=== PATIENT | female | born 1940 | race Caucasian/White ===

== ENCOUNTER 2023-05-07 13:12 | Inpatient (IN) ==
--- NOTE | 2023-05-07 13:45 | Emergency Department Note ---
ED Provider Note History of Present Illness Chief Complaint: Sore Throat Time Seen by Provider: 05/07/23 13:44 History obtained from the patient, the patient's daughter, Anita, is well as Tatiana, supervisor stage carpentry at [facility] This is an 82-year-old female with a history of hypertension, chronic pain, diabetes, vascular dementia, arthritis, CVA, on Eliquis, resident of [facility], on hospice for pain control secondary to chronic foot pain, who presents to the emergency department via EMS who were contacted by the patient's daughter who spoke with the patient today who was not feeling well. Patient is complaining of a sore throat and nausea. Patient describes a mild cough but does not feel short of breath. Patient denies any fevers but does admit to body aches. She has not had any vomiting. She denies any chest pain. When the daughter spoke to the patient today on the phone, she was concerned stating that she was acting like she was ill and contacted EMS to take her to the emergency department. Per nursing staff, the patient has been eating and drinking. Patient was treated for a left second toe infection with doxycycline within the past few weeks. She is not routinely on oxygen. She was worked up for her sore throat in the past. Patient tested negative for COVID-19 yesterday. Patient arrives via EMS on 2 L O2. Past Med/Surg History Medical History (Updated 05/07/23 @ 16:25 by SANDY Ruff) Chronic pain Anticoagulated History of CVA (cerebrovascular accident) Vascular dementia Hypertension Diabetes Social History Smoking Status: Former smoker Preferred Language: Scottish Feels Safe at Home: Yes Physical Exam Vital Signs Vital Signs - 24 hr 05/07/23 13:23 05/07/23 13:23 05/07/23 13:53 Temperature 100.0 F H 100.0 F H Temperature Source Oral Oral Pulse Rate 100 H 98 H Pulse Rate [Apical] 96 H Pulse Rate from SpO2 Sensor Pulse Rhythm [Apical] Pulse Strength [Apical] Respiratory Rate 18 17 Respiratory Effort / Characteristics Non-Labored Spontaneous Non-Labored Spontaneous Respiratory Depth Normal Normal Respiratory Pattern Blood Pressure 132/71 Blood Pressure [Right Arm] 132/71 Blood Pressure Mean 91 Blood Pressure Mean [Right Arm] 91 Blood Pressure Position Lying Blood Pressure Position [Right Arm] Lying Pulse Oximetry 86 L 96 Oxygen Delivery Method Room Air Nasal Cannula Oxygen Flow Rate 2 Sepsis Recent Fever Within 48 Hours No Sepsis New/Unexplained Change in Mental Status N/A Sepsis Action Taken by Nursing No Action Required Oxygen Flow Rate - Titration Pulse Oximetry Post Tiitration 05/07/23 14:00 05/07/23 14:00 05/07/23 14:30 Temperature Temperature Source Pulse Rate 94 H 93 H Pulse Rate [Apical] Pulse Rate from SpO2 Sensor 94 H 93 H Pulse Rhythm [Apical] Pulse Strength [Apical] Respiratory Rate 24 22 Respiratory Effort / Characteristics Respiratory Depth Respiratory Pattern Blood Pressure 131/68 Blood Pressure [Right Arm] Blood Pressure Mean 88 Blood Pressure Mean [Right Arm] Blood Pressure Position Blood Pressure Position [Right Arm] Pulse Oximetry 95 97 Oxygen Delivery Method Oxygen Flow Rate Sepsis Recent Fever Within 48 Hours Sepsis New/Unexplained Change in Mental Status Sepsis Action Taken by Nursing Oxygen Flow Rate - Titration Pulse Oximetry Post Tiitration 05/07/23 14:41 05/07/23 14:41 05/07/23 15:00 Temperature Temperature Source Pulse Rate 94 H Pulse Rate [Apical] Pulse Rate from SpO2 Sensor 94 H Pulse Rhythm [Apical] Pulse Strength [Apical] Respiratory Rate 24 Respiratory Effort / Characteristics Respiratory Depth Respiratory Pattern Blood Pressure 105/80 138/70 Blood Pressure [Right Arm] Blood Pressure Mean 94 102 Blood Pressure Mean [Right Arm] Blood Pressure Position Blood Pressure Position [Right Arm] Pulse Oximetry 96 Oxygen Delivery Method Oxygen Flow Rate Sepsis Recent Fever Within 48 Hours Sepsis New/Unexplained Change in Mental Status Sepsis Action Taken by Nursing Oxygen Flow Rate - Titration Pulse Oximetry Post Tiitration 05/07/23 15:00 05/07/23 15:30 05/07/23 15:30 Temperature Temperature Source Pulse Rate 83 84 Pulse Rate [Apical] Pulse Rate from SpO2 Sensor 83 84 Pulse Rhythm [Apical] Pulse Strength [Apical] Respiratory Rate 23 24 Respiratory Effort / Characteristics Respiratory Depth Respiratory Pattern Blood Pressure 134/68 Blood Pressure [Right Arm] Blood Pressure Mean 99 Blood Pressure Mean [Right Arm] Blood Pressure Position Blood Pressure Position [Right Arm] Pulse Oximetry 96 95 Oxygen Delivery Method Nasal Cannula Nasal Cannula Oxygen Flow Rate 2 2 Sepsis Recent Fever Within 48 Hours Sepsis New/Unexplained Change in Mental Status Sepsis Action Taken by Nursing Oxygen Flow Rate - Titration Pulse Oximetry Post Tiitration 05/07/23 15:42 05/07/23 16:07 05/07/23 16:30 Temperature Temperature Source Pulse Rate 81 Pulse Rate [Apical] 76 Pulse Rate from SpO2 Sensor 81 Pulse Rhythm [Apical] Regular Pulse Strength [Apical] Normal Respiratory Rate 19 21 Respiratory Effort / Characteristics Non-Labored Spontaneous Respiratory Depth Normal Respiratory Pattern Regular Blood Pressure Blood Pressure [Right Arm] 128/65 Blood Pressure Mean Blood Pressure Mean [Right Arm] 86 Blood Pressure Position Blood Pressure Position [Right Arm] Semi-fowlers Pulse Oximetry 88 L 99 98 Oxygen Delivery Method Nasal Cannula Nasal Cannula Nasal Cannula Oxygen Flow Rate 0 2 2 Sepsis Recent Fever Within 48 Hours Sepsis New/Unexplained Change in Mental Status Sepsis Action Taken by Nursing Oxygen Flow Rate - Titration 2 Pulse Oximetry Post Tiitration 93 05/07/23 16:30 05/07/23 17:00 05/07/23 17:00 Temperature Temperature Source Pulse Rate 81 Pulse Rate [Apical] Pulse Rate from SpO2 Sensor 75 Pulse Rhythm [Apical] Pulse Strength [Apical] Respiratory Rate 19 Respiratory Effort / Characteristics Respiratory Depth Respiratory Pattern Blood Pressure 122/63 111/57 L Blood Pressure [Right Arm] Blood Pressure Mean 79 77 Blood Pressure Mean [Right Arm] Blood Pressure Position Blood Pressure Position [Right Arm] Pulse Oximetry 98 Oxygen Delivery Method Nasal Cannula Oxygen Flow Rate 2 Sepsis Recent Fever Within 48 Hours Sepsis New/Unexplained Change in Mental Status Sepsis Action Taken by Nursing Oxygen Flow Rate - Titration Pulse Oximetry Post Tiitration CONSTITUTIONAL: Well developed, well nourished, ill-appearing, nontoxic. Answers questions and communicates with examiner. Follows commands. HEAD: Normocephalic, atraumatic. EYES: conjunctivae normal, extraocular muscles intact. ENMT: External ears normal. Nose with normal external appearance, no congestion. Oral mucous membranes dry. Oropharynx is erythematous with no exudates or tonsillar enlargement.. NECK: No rigidity LYMPHATIC: No cervical adenopathy RESPIRATORY: Breathing unlabored and symmetric. Lungs clear to auscultation bilaterally. No wheeze, rales, or rhonchi. CARDIOVASCULAR: Regular rate and rhythm. No murmurs, rubs, or gallops. ABDOMEN: Normal bowel sounds. Soft, no focal tenderness. No peritonitis. MUSCULOSKELETAL: Bilateral lower extremities without edema. Left second toe with a wound with mild surrounding erythema. All toes are hyperflexed SKIN: [place], warm, dry. NEUROLOGIC: Awake, alert, oriented to person. Believes she is at [facility]. Does not know the year. No focal deficits. PSYCHIATRIC: Minimally confused but answers questions appropriately. Course Administered Medications Discontinued Medications Acetaminophen (Acetaminophen 325 Mg Tab) 650 mg PO NOW STA Stop: 05/07/23 14:22 Last Admin: 05/07/23 14:55 Dose: 650 mg Documented By: AKILAH Sodium Chloride (Nss) 1,000 mls @ 999 mls/hr IV .Q1H1M ONE Stop: 05/07/23 15:06 Last Infusion: 05/07/23 15:41 Dose: Infused Documented By: Admin: 05/07/23 14:51 Dose: 999 mls/hr Documented By: AKILAH Piperacillin Sod/Tazobactam Sod (Zosyn) 4.5 gm in 100 mls @ 200 mls/hr IV NOW STA Stop: 05/07/23 16:14 Last Infusion: 05/07/23 16:37 Dose: Infused Documented By: Admin: 05/07/23 15:55 Dose: 200 mls/hr Documented By: ROD Daptomycin 325 mg/ Syringe 6.5 mls @ 3.25 mls/min IV NOW ONE; Protocol Stop: 05/07/23 16:01 Last Admin: 05/07/23 15:55 Dose: 3.25 mls/min Documented By: ROD Ondansetron HCl (Ondansetron Inj 2 Mg/Ml 2 Ml Vial) 4 mg IV NOW STA Stop: 05/07/23 15:27 Last Admin: 05/07/23 15:38 Dose: 4 mg Documented By: LISETTE Medical Decision Making Differential Diagnosis Viral upper respiratory infection, pneumonia, bronchitis, electrolyte imbalance, sepsis, UTI, CHF, effusion, among other pathology Laboratory Data 05/07/23 14:30 05/07/23 14:30 Lab Results 05/07/23 05/07/23 Range/Units 13:56 14:30 WBC 9.86 (4.8-10.8) K/ul RBC 4.04 L (4.20-5.40) M/uL Hgb 11.0 L (12.0-16.0) g/dl Hct 35.3 L (37.0-47.0) % MCV 87.4 (80.0-100.0) fL MCH 27.2 (25.0-34.0) pg MCHC 31.2 L (32.0-36.0) g/dL RDW Std Deviation 46.5 H (36.4-46.3) fL RDW Coeff of Atilio 14.5 (11.5-14.5) % Plt Count 137 (130-400) K/uL MPV 11.2 (9.4-12.4) fL Immature Gran % (Auto) 0.3 % Neut % (Auto) 63.3 % Lymph % (Auto) 28.9 % [place] % (Auto) 6.3 % Eos % (Auto) 0.6 % Baso % (Auto) 0.6 % Neut # (Auto) 6.24 (1.40-6.50) K/uL Lymph # (Auto) 2.85 (1.20-3.40) K/uL [place] # (Auto) 0.62 H (0.11-0.59) K/uL Eos # (Auto) 0.06 (0.00-0.50) K/uL Baso # (Auto) 0.06 (0.00-0.20) K/uL Immature Gran # (Auto) 0.03 (0.01-0.20) K/uL Sodium 136 (136-145) mmol/L Potassium 4.3 (3.5-5.1) mmol/L Chloride 102 (98-107) mmol/L Carbon Dioxide 28 (21-32) mmol/L Anion Gap 6 (3-11) BUN 21 (6-23) mg/dl Creatinine 0.68 (0.6-1.2) mg/dl Est Cr Clr Drug Dosing 57.0 ml/min Est GFR ( Amer) 95.8 ml/min Est GFR (Non-Af Amer) 82.6 ml/min BUN/Creatinine Ratio 30.9 H (10-20) Glucose 107 H (70-99(Fasting)) mg/dl Calcium 9.1 (8.6-10.3) mg/dl Total Bilirubin 0.4 (0.2-1.0) mg/dl AST 19 (13-39) U/L ALT 16 (7-52) U/L Alkaline Phosphatase 140 H (34-104) U/L Total Protein 6.5 (6.0-8.3) gm/dl Albumin 3.7 (3.4-5.0) gm/dl Globulin 2.8 (2.5-4.0) gm/dl Albumin/Globulin Ratio 1.3 (0.9-2) Procalcitonin 0.06 (0-0.5) ng/ml Adenovirus (PCR) Not Detected (NotDetected) B. pertussis DNA (PCR) Not Detected (NotDetected) B.parapertussis DNA PCR Not Detected (NotDetected) C. pneumoniae DNA (PCR) Not Detected (NotDetected) Coronavirus OC43 (PCR) Not Detected (NotDetected) Coronavirus HKU1 (PCR) Not Detected (NotDetected) Coronavirus 229E (PCR) Not Detected (NotDetected) SARS-CoV-2 (PCR) DETECTED A* (NotDetected) Coronavirus NL63 (PCR) Not Detected (NotDetected) Human Metapneumovir PCR Not Detected (NotDetected) Influenza Type A (PCR) Not Detected (NotDetected) Influenza Type B (PCR) Not Detected (NotDetected) M. pneumoniae (PCR) Not Detected (NotDetected) Parainfluenza 1 (PCR) Not Detected (NotDetected) Parainfluenza 2 (PCR) Not Detected (NotDetected) Parainfluenza 3 (PCR) Not Detected (NotDetected) Parainfluenza 4 (PCR) Not Detected (NotDetected) RSV (PCR) Not Detected (NotDetected) Entero/Rhino (PCR) Not Detected (NotDetected) Imaging Data Radiologist's Impression: Chest X-Ray 05/07/23 14:06 XR chest 1V portable HISTORY: cough, low grade fever COMPARISON: None. FINDINGS: Slightly rotated study. There are low lung volumes. No pneumothorax. No pleural effusions. The heart is normal in size. Mild interstitial thickening. This is likely chronic. No focal lung consolidations to suggest a pneumonia. No evidence for pulmonary edema. No acute fractures identified. IMPRESSION: Mild diffuse interstitial thickening. This is likely chronic. Otherwise, no acute process within the chest. ACT 112: Negative or not required by law. Electronically signed by: Darrel Lui M.D. 05/07/2023 2:45 PM Foot X-Ray 05/07/23 14:32 XR foot LT min 3V routine CLINICAL HISTORY: 2nd toe infection?. Left second toe pain. COMPARISON STUDY: None. FINDINGS: The bones are osteopenic. No acute fracture or dislocation within the left foot. Hallux valgus deformity noted overlying the second toe. This results in difficult evaluation of the second toe. Flexion deformities within the toes also results in suboptimal evaluation. There is evidence for a small focus of cortical erosion at the head of the second toe proximal phalanx. This is consistent with a site of osteomyelitis. Vascular calcifications are noted. No radiopaque foreign bodies. IMPRESSION: Small focus of cortical erosion at the head of the left second toe consistent with osteomyelitis. ACT 112: Negative or not required by law. Electronically signed by: Darrel Lui M.D. 05/07/2023 3:26 PM MDM Narrative This is an 82-year-old female who is brought to the emergency department via EMS. Her daughter called the ambulance today because she was complaining of a sore throat, had a cough, and daughter was concerned she sounded ill. Patient hospice for chronic pain. See above for further details. When I initially evaluated the patient, her heart rate was in the high 90s. She was not oriented to place or year, history of dementia. She seems slightly ill but nontoxic. She answered questions and followed commands. She was placed on 2 L O2 by EMS. I removed this but the patient dropped into the high 80s/low 90s so she was kept on 2 L. She is not in any respiratory distress. Does appear to be dry. Oropharynx is erythematous. She also has a wound on her left second toe with some erythema. Patient is nearly febrile at 100.0. Differential diagnosis considered above. IV was inserted and labs were obtained. Blood cultures obtained. IV fluids and Tylenol administered. Aside from 2 L nasal cannula, patient not requiring any additional respiratory intervention. An order was placed for continuous cardiac monitoring at time of evaluation demonstrates a sinus rhythm with a rate in the 90s. Case was reviewed with ED attending Dr. Campo who evaluated patient at bedside. I called and spoke with the patient's daughter, Anita who is the power of assistant county attorney. She wanted the patient to be worked up and if necessary, admitted, was not concerned about being discharged from hospice. I also spoke with Tatiana, supervisor stage carpentry at [facility]. Patient takes Eliquis, a statin, lisinopril, tramadol, gabapentin, Celexa. She felt the sore throat was chronic and patient had been worked up for this in the past. Patient was treated with doxycycline for an infection on her left second toe within the past few weeks. Tested negative for COVID-19 yesterday. Was not overly concerned about her state of health and that she had been eating and drinking to her knowledge. Patient is POSITIVE for COVID-19. Chest x-ray demonstrates some chronic changes, nothing acute. Her left toe x-ray is positive for osteomyelitis. Antibiotic recommendations were discussed with ED clinical pharmacist. Given her history of diabetes, daptomycin and Zosyn were administered. Patient will be admitted for ongoing management of both COVID-19 with hypoxia and osteomyelitis. I called and updated Mis as well as the patient's daughter. Both are in agreement with this plan. Case was discussed with Darrel Ng PA-C with [facility] hospitalist group who agrees to admit the patient. Impression COVID-19, Acute osteomyelitis of toe Discharge Plan Visit Data Chief Complaint: Sore Throat ED Provider: Sumit Campo ED Midlevel Provider: Phi Sheriff Discharge Problem: COVID-19, Acute osteomyelitis of toe Patient Disposition: Admitted As Inpatient Forms Stand Alone Forms: My [facility] Referrals Referrals: Charlee Abebe [Primary Care Provider] - Discharge Problem: Acute osteomyelitis of toe Qualifiers: Laterality: left Qualified Code(s): M86.172 - Other acute osteomyelitis, left ankle and foot
[2023-05-07] MEDS ORDERED: SODIUM CHLORIDE 0.9% 1,000 ML IV ONE (14:06)
[2023-05-07] MEDS ORDERED: ACETAMINOPHEN 325 MG TAB PO STA (14:21)
--- NOTE | 2023-05-07 14:46 | XRay Report ---
XR chest 1V portable HISTORY: cough, low grade fever COMPARISON: None. FINDINGS: Slightly rotated study. There are low lung volumes. No pneumothorax. No pleural effusions. The heart is normal in size. Mild interstitial thickening. This is likely chronic. No focal lung cons olidations to suggest a pneumonia. No evidence for pulmonary edema. No acute fractures identified. IMPRESSION: Mild diffuse interstitial thickening. This is likely chronic. Otherwise, no acute process within the chest. ACT 112: Negative or not required by law. Electronically signed by: Darrel Lui M.D. 05/07/2023 2:45 PM
[2023-05-07 15:14] LABS: Adenovirus PCR Not Detected (NotDetected); Bordetella parapertussis PCR Not Detected (NotDetected); Bordetella pertussis PCR Not Detected (NotDetected); Chlamydia pneumoniae PCR Not Detected (NotDetected); Coronavirus 229E PCR Not Detected (NotDetected); Coronavirus HKU1 PCR Not Detected (NotDetected); Coronavirus NL63 PCR Not Detected (NotDetected); Coronavirus OC43PCR Not Detected (NotDetected); Human Metapneumovirus PCR Not Detected (NotDetected); Influenza A PCR Not Detected (NotDetected); Influenza B PCR Not Detected (NotDetected); Mycoplasma pneumoniae PCR Not Detected (NotDetected); Parainfluenza Virus 1 PCR Not Detected (NotDetected); Parainfluenza Virus 2 PCR Not Detected (NotDetected); Parainfluenza Virus 3 PCR Not Detected (NotDetected); Parainfluenza Virus 4 PCR Not Detected (NotDetected); Respiratory Syncytial VirusPCR Not Detected (NotDetected); Rhinovirus/Enterovirus PCR Not Detected (NotDetected)
[2023-05-07 15:15] LABS: Basophils # (auto) 0.06 K/uL (0.00-0.20); Basophils % (auto) 0.6 %; Eosinophils # (auto) 0.06 K/uL (0.00-0.50); Eosinophils % (auto) 0.6 %; Hematocrit (blood only) 35.3 % (37.0-47.0); Immature Granulocytes # (auto) 0.03 K/uL (0.01-0.20); Immature Granulocytes % (auto) 0.3 %; Lymphocytes # (auto) 2.85 K/uL (1.20-3.40); Lymphocytes % (auto) 28.9 %; Mean Corpuscular Hemoglobin 27.2 pg (25.0-34.0); Mean Corpuscular Hgb Conc 31.2 g/dL (32.0-36.0); Mean Corpuscular Volume 87.4 fL (80.0-100.0); Mean Platelet Volume 11.2 fL (9.4-12.4); Monocytes # (auto) 0.62 K/uL (0.11-0.59); Monocytes % (auto) 6.3 %; Neutrophils # (auto) 6.24 K/uL (1.40-6.50); Neutrophils % (auto) 63.3 %; Platelet Count 137 K/uL (130-400); RDW Coefficient of Variation 14.5 % (11.5-14.5); RDW Standard Deviation 46.5 fL (36.4-46.3); Red Blood Count 4.04 M/uL (4.20-5.40); White Blood Count 9.86 K/ul (4.8-10.8)
[2023-05-07 15:22] LABS: Coronavirus CoV-2 (COVID19)PCR DETECTED (NotDetected)
[2023-05-07 15:25] LABS: Albumin Globulin Ratio 1.3 (0.9-2); Albumin Level 3.7 gm/dl (3.4-5.0); BUN Creatinine Ratio 30.9 (10-20); Bilirubin,Total 0.4 mg/dl (0.2-1.0); Calcium 9.1 mg/dl (8.6-10.3); Est GFR (African American) 95.8 ml/min; Est GFR (Non-African American) 82.6 ml/min; Globulin 2.8 gm/dl (2.5-4.0); Potassium 4.3 mmol/L (3.5-5.1); Total Protein 6.5 gm/dl (6.0-8.3)
[2023-05-07] MEDS ORDERED: ONDANSETRON INJ 2 MG/ML 2 ML VIAL IV STA (15:26)
--- NOTE | 2023-05-07 15:28 | XRay Report ---
XR foot LT min 3V routine CLINICAL HISTORY: 2nd toe infection?. Left second toe pain. COMPARISON STUDY: None. FINDINGS: The bones are osteopenic. No acute fracture or dislocation within the left foot. Hallux ronal ave deformity noted overlying the second toe. This results in difficult evaluation of the second toe. Flexion deformities within the toes also results in suboptimal evaluation. There is evidence for a s mall focus of cortical erosion at the head of the second toe proximal phalanx. This is consistent wit h a site of osteomyelitis. Vascular calcifications are noted. No radiopaque foreign bodies. IMPRESSION: Small focus of cortical erosion at the head of the left second toe consistent with osteo myelitis. ACT 112: Negative or not required by law. Electronically signed by: Darrel Lui M.D. 05/07/2023 3:26 PM
[2023-05-07] MEDS ORDERED: PIPERACILLIN/TAZOBACTAM 4.5 GM/100 ML BAG IV STA (15:45)
--- NOTE | 2023-05-07 15:49 | Emergency Department Note ---
ED Visit Note Patient was evaluated and treated by the MARQUES. I was asked to see the patient as well. The patient is resting in no distress on my arrival to the room. Patient is COVID-positive I have reviewed all of her lab work as well as her x-rays there is a possibility that the patient has an osteomyelitis of a toe. Patient's pulse ox is 88% when she is taken off oxygen. Patient was placed back on 2 L. Patient is in no current distress on my examination at 1549 Disposition and treatment plan per the MARQUES, I agree with the plan. I reviewed the patient's medical records. I reviewed the patient's lab work showing the patient to be COVID positive .
[2023-05-07] MEDS ORDERED: DAPTOmycin 325 MG in SYRINGE 0 ML IV ONE (16:00)
--- NOTE | 2023-05-07 16:52 | History & Physical Report ---
Date of Service May 07, 2023 Assessment & Plan (1) Acute osteomyelitis of toe: Plan: Patient presented for [facility] after her daughter called EMS requesting she come in Patient with hx of vascular dementia; unreliable historian; she was previously on hospice care, however, daughter/POA requested she be admitted even if this meant being disenrolled from hospice care Patient notes worsening cough, fatigue, and sore throat x 2 days; ongoing, severe pain in toes bilaterally Left foot x-ray revealed a small focus of cortical erosion at the head of the left second toe consistent with osteomyelitis Blood culture ordered, pending Daptomycin and Zosyn given in the ED Continue daptomycin 6mg/kg IV q24h ?PCN allergy (unable to assess due to patient's underlying dementia), however tolerated Zosyn in the ED We will switch to cefepime 2000 mg IV q8h for now Daily wound care Apply mupirocin 2% to site twice daily Podiatry consulted Continue tramadol Continue gabapentin Acetaminophen 650 mg p.o. q4h as needed for additional pain/fever control A.m. CBC, BMP, CRP, A1c (2) COVID-19: Plan: + COVID on arrival Unclear when symptoms began; patient says "a couple days", however sore throat has been ongoing But timeline is uncertain, will start on remdesivir while inpatient; kidney function okay Decadron 6 mg IV daily Continue guaifenesin as needed for cough Supplemental oxygen as needed to maintain SpO2 >95% Isolation precautions in place (3) Constipation: Plan: MiraLAX twice daily (4) Chronic pain: Plan: Gabapentin (as above) (5) Hypertension: Plan: Continue lisinopril (6) Major depressive disorder: Plan: Continue citalopram (7) Type 2 diabetes mellitus with diabetic polyneuropathy: Plan: Not on any diabetic medications [facility] had patient listed as having a regular diet; ?Diet controlled No A1c on record Continue lisinopril T2DM diet BSG ACHS Follow a.m. A1c (8) Insomnia: Plan: Continue melatonin HS (9) Hyperlipidemia: Plan: Hold atorvastatin in the setting of daptomycin use (10) GERD (gastroesophageal reflux disease): Plan: Continue omeprazole or pantoprazole equivalent (11) History of deep venous thrombosis (DVT) of distal vein of right lower extremity: Plan: On Eliquis (12) Vascular dementia: Plan Disposition: Admit to [facility] telemetry DNR/DNI T2DM diet VTE PPx: On Eliquis History of Present Illness Chief Complaint: Osteomyelitis Primary Care Provider: [facility] Ruthann is an 82-year-old female with PMH of T2DM with diabetic polyneuropathy, depression, vascular dementia, GERD, DVT, insomnia, RA, and hyperlipidemia. She presented via EMS from her [facility] at the request of her daughter who reported that she was not feeling well. Per EMS, patient required 2L as she was 90% SpO2 on RA; she also noted sore throat, upset stomach, and pain in her toes. Of note, this patient was previously on hospice secondary to chronic foot pain. However, spoke on the phone with the patient's daughter/POA (Anita) who is okay with her being admitted even if it meant being disenrolled from hospice care, and that this would not require reenrolling upon discharge. At time of admission, patient reports that her sore throat, and upset stomach has been going on for "a couple days", likely 2. She tested positive for COVID on arrival. She endorses ongoing toe pain which she rates 8/10. No radiation of the foot. She reports that she used to smoke tobacco cigarettes, but quit a long time ago. Patient's vitals are stable at time of admission. SpO2 95% on 2L. ED course: ROS: Patient endorses intermittent CP (patient is not able to describe; unknown frequency), nausea, sore throat, and pain in her toes. Patient denies fever, sweats, chills, cough, SOB, pleuritic CP, abdominal pain, vomiting, diarrhea, urinary s/s, burning with urination, or numbness/tingling going down your legs Spoke on the phone with patient's daughter/POA (Anita) and confirmed her CODE STATUS as DNR/DNI. Daughter also confirmed that the patient has had COVID vaccine x 2, but she was unsure about the booster. Allergies Allergy/AdvReac Type Severity Reaction Status Date / Time ibuprofen Allergy Unknown Unverified 05/07/23 18:17 Iodinated Contrast Media Allergy Unknown Unverified 05/07/23 18:17 iodine Allergy Unknown Unverified 05/07/23 18:17 metformin Allergy Unknown Unverified 05/07/23 18:17 naproxen Allergy Unknown Unverified 05/07/23 18:17 Penicillins Allergy Unknown Unverified 05/07/23 18:17 pregabalin Allergy Unknown Unverified 05/07/23 18:17 Home Medications Medication Instructions Recorded Confirmed Type acetaminophen 325 mg tablet 650 mg PO Q6 PRN mild pain scale 05/07/23 05/07/23 History 1-10 acetaminophen 325 mg tablet 650 mg PO Q6 PRN temp>101 05/07/23 05/07/23 History apixaban 5 mg tablet (Eliquis) 5 mg PO BID 05/07/23 05/07/23 History atorvastatin 10 mg tablet 10 mg PO DAILY 05/07/23 05/07/23 History citalopram 10 mg tablet 10 mg PO DAILY 05/07/23 05/07/23 History diclofenac sodium 1 % topical gel 1 ea topical TID 05/07/23 05/07/23 History gabapentin 400 mg capsule 400 mg PO QID 05/07/23 05/07/23 History guaifenesin 100 mg/5 mL oral liquid 200 mg PO Q4H PRN Cough 05/07/23 05/07/23 History hyoscyamine sulfate 0.125 mg tablet 0.125 mg PO Q6 PRN increased 05/07/23 05/07/23 History secretions lisinopril 2.5 mg tablet 2.5 mg PO DAILY 05/07/23 05/07/23 History lorazepam 1 mg tablet (Ativan) 0.5 mg PO BID 05/07/23 05/07/23 History magnesium chloride 64 mg 138 mg PO DAILY 05/07/23 05/07/23 History (magnesium chloride) tablet melatonin 5 mg tablet 5 mg PO HS 05/07/23 05/07/23 History morphine concentrate 5 mg/0.25 mL 5 mg PO Q4 PRN pain/SOB 05/07/23 05/07/23 History oral solution mupirocin 2 % topical ointment 1 applic topical BID 05/07/23 05/07/23 History omeprazole 20 mg capsule,delayed 20 mg PO DAILY 05/07/23 05/07/23 History release polyethylene glycol 3350 17 17 g PO BID 05/07/23 05/07/23 History gram/dose oral powder (Miralax) tramadol 50 mg tablet 50 mg PO BID 05/07/23 05/07/23 History Past Med/Surg History Medical History History of deep venous thrombosis (DVT) of distal vein of right lower extremity GERD (gastroesophageal reflux disease) Hyperlipidemia Insomnia Rheumatoid arthritis Type 2 diabetes mellitus with diabetic polyneuropathy Major depressive disorder Vascular dementia Constipation Chronic pain Anticoagulated History of CVA (cerebrovascular accident) Hypertension Diabetes Social History Smoking Status: Former smoker Second Hand Exposure: No; Do You Dip or Chew Tobacco: No; Hx Alcohol Use: No Hx Substance Use: No Preferred Language: Romansh Communication Ability: Effective 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 Required: No Beliefs That Will Affect Care: None Current Living Situation: Skilled Nursing Feels Safe at Home: Yes Safety Concerns: Feels Safe At This Time Assistive Devices: Hospital Bed, Mechanical Lift and Wheelchair Review of Systems Review of Systems: See HPI above Physical Exam Physical Exam: General: Lethargic; non-toxic appearing; well-nourished; cooperative; 95% on 2L NC HEENT: normocephalic, atraumatic; no scleral icterus; PERRLA w/ EOMs intact; dry mucus membrane; vision and hearing intact Neck: supple; no JVD; no lymphadenopathy; trachea midline Skin: warm, dry without signs of tenting; no cyanosis; no rashes, bruising, lesions, or erythema noted CV: chest wall NTP; RRR; S1/S2 normal; no murmurs/rubs/gallops; pulses intact and symmetric at radial, DP, and PT Lungs: no acute respiratory distress; symmetrical chest wall expansion; clear breath sounds across all lung bhakta w/o adventitious sounds; no wheezing ABD: Soft, NTP; BS present; no rebound/guarding; no distention MSK: no tics or fasciculations; no edema noted in the LEs b/l; toes on the left foot are TTP Neuro: A&Ox3; normal mood and affect; fluent speech; no focal deficits; diminished sensation in the LEs B/L Results & Data Results & Data Vital Signs (Past 12 Hours) Vital Signs Temp Pulse Pulse Resp BP BP Pulse Ox 05/07/23 16:07 76 19 128/65 99 05/07/23 15:42 88 L 05/07/23 15:30 134/68 05/07/23 15:30 84 24 95 05/07/23 15:00 83 23 96 05/07/23 15:00 138/70 05/07/23 14:41 105/80 05/07/23 14:41 94 H 24 96 05/07/23 14:30 93 H 22 97 05/07/23 14:00 131/68 05/07/23 14:00 94 H 24 95 05/07/23 13:53 98 H 05/07/23 13:23 37.8 C H 96 H 17 132/71 96 05/07/23 13:23 37.8 C H 100 H 18 132/71 86 L O2 Del Method O2 Flow Rate 05/07/23 16:07 Nasal Cannula 2 05/07/23 15:42 Nasal Cannula 0 05/07/23 15:30 05/07/23 15:30 Nasal Cannula 2 05/07/23 15:00 Nasal Cannula 2 05/07/23 15:00 05/07/23 14:41 05/07/23 14:41 05/07/23 14:30 05/07/23 14:00 05/07/23 14:00 05/07/23 13:53 05/07/23 13:23 Nasal Cannula 2 05/07/23 13:23 Room Air Laboratory Results Abnormal lab results 05/07/23 05/07/23 Range/Units 13:56 14:30 RBC 4.04 L (4.20-5.40) M/uL Hgb 11.0 L (12.0-16.0) g/dl Hct 35.3 L (37.0-47.0) % MCHC 31.2 L (32.0-36.0) g/dL RDW Std Deviation 46.5 H (36.4-46.3) fL [place] # (Auto) 0.62 H (0.11-0.59) K/uL BUN/Creatinine Ratio 30.9 H (10-20) Glucose 107 H (70-99(Fasting)) mg/dl Alkaline Phosphatase 140 H (34-104) U/L SARS-CoV-2 (PCR) DETECTED A* (NotDetected) Diagnostic Findings Chest X-Ray 05/07/23 14:06 XR chest 1V portable HISTORY: cough, low grade fever COMPARISON: None. FINDINGS: Slightly rotated study. There are low lung volumes. No pneumothorax. No pleural effusions. The heart is normal in size. Mild interstitial thickening. This is likely chronic. No focal lung consolidations to suggest a pneumonia. No evidence for pulmonary edema. No acute fractures identified. IMPRESSION: Mild diffuse interstitial thickening. This is likely chronic. Otherwise, no acute process within the chest. ACT 112: Negative or not required by law. Electronically signed by: Darrel Lui M.D. 05/07/2023 2:45 PM Foot X-Ray 05/07/23 14:32 XR foot LT min 3V routine CLINICAL HISTORY: 2nd toe infection?. Left second toe pain. COMPARISON STUDY: None. FINDINGS: The bones are osteopenic. No acute fracture or dislocation within the left foot. Hallux valgus deformity noted overlying the second toe. This results in difficult evaluation of the second toe. Flexion deformities within the toes also results in suboptimal evaluation. There is evidence for a small focus of cortical erosion at the head of the second toe proximal phalanx. This is consistent with a site of osteomyelitis. Vascular calcifications are noted. No radiopaque foreign bodies. IMPRESSION: Small focus of cortical erosion at the head of the left second toe consistent with osteomyelitis. ACT 112: Negative or not required by law. Electronically signed by: Darrel Lui M.D. 05/07/2023 3:26 PM Code Status & VTE Plan Code Status DNR/DNI (spoke on the phone with patient's daughter Anita and confirmed) VTE Prophylaxis Plan VTE Prophylaxis will be ordered: Yes Supervising Physician Co-Signing Physician Notes Attending addendum: I have physically seen this patient, have supervised the MARQUES's activities, and a gree with the H&P unless as otherwise noted. Assessment and Plan: Osteomyelitis of left second toe- Unclear from inability to obtain history as to length of time the infection has been there Follow-up blood culture and sensitivity Given Zosyn IV in the ED Will change to cefepime 2 g IV every 12 hours due to noted penicillin allergy, although, patient does appear to have tolerated Zosyn Daptomycin IV every 24 hours Acetaminophen 650 mg by mouth every 6 hours as needed for mild pain or fever Tramadol 50 mg by mouth every 4 hours as needed for moderate pain COVID-19 infection- Patient does present with hypoxia and sore throat with dyspnea on exertion Dexamethasone 6 mg IV daily Remdesivir IV per protocol Nasal cannula oxygen, titrate to keep pulse ox around 94% Guaifenesin extended release 12 mg p.o. twice daily COVID-19 precautions Remaining orders and notations as noted PG Care Time/CCT Total # of Minutes Spent Total Time Spent with Patient: Total time spent is greater than 50% in coordination of care (as documented) at patient's floor/unit and/or counseling patient: [place] [address] INT INP/OBS CARE 375MIN Patient Type New Medical Decision Making High Complexity Diagnoses Acute osteomyelitis of toe M86.172 Laterality: left COVID-19 U07.1 Constipation K59.00 Chronic pain G89.29 Hypertension I10 Major depressive disorder F32.9 Type 2 diabetes mellitus with diabetic polyneuropathy E11.42 Insomnia G47.00 Hyperlipidemia E78.5 GERD (gastroesophageal reflux disease) K21.9 History of deep venous thrombosis (DVT) of distal vein of right lower extremity Z86.718 Vascular dementia F01.50 (1) Acute osteomyelitis of toe Laterality: left Qualified Code(s): M86.172 - Other acute osteomyelitis, left ankle and foot
[2023-05-07] MEDS ORDERED: CARBOHYDRATES FOR HYPOGLYCEMIA PO PRN (20:22)
[2023-05-07] MEDS ORDERED: GLUCAGON FOR INJ 1 MG VIAL SQ PRN (20:22)
[2023-05-07] MEDS ORDERED: ONDANSETRON INJ 2 MG/ML 2 ML VIAL IV PRN (20:22)
[2023-05-07] MEDS ORDERED: GLUCOSE 10 TAB/TUBE PO PRN (20:22)
[2023-05-07] MEDS ORDERED: HYOSCYAMINE SULFATE 0.125 MG TAB PO PRN (20:22)
[2023-05-07] MEDS ORDERED: DEXTROSE 50% 50 ML SYRINGE IV PRN (20:22)
[2023-05-07] MEDS ORDERED: GLUCOSE 40% GEL 15 GM TUBE PO PRN (20:22)
[2023-05-07] MEDS ORDERED: MUPIROCIN 2% OINT 22 GM TUBE TOP SCH (21:00)
[2023-05-07] MEDS ORDERED: REMDESIVIR 200 MG in SODIUM CHLORIDE 0.9% 210 ML IV STA (21:49)
--- NOTE | 2023-05-07 22:04 | Orthopedic Consultation ---
Date of Consultation May 07, 2023 Assessment & Plan (1) Acute osteomyelitis of toe: Patient seen, evaluated, and treated. Reviewed x-ray and x-ray findings. There is concern over exposed proximal head of phalanx over right second toe wound. I did reach out to Patient's daughter this evening however was unable to contact her. LMOM. I did review with Patient options for care. Will continue to follow while Patient remains in house. Thank you for allowing me to participate in the care of this Patient. (2) Type 2 diabetes mellitus with diabetic polyneuropathy: History of Present Illness Attending Physician: Lane Park MD History of Present Illness Patient is an 82-year-old female seen in [facility] Emergency Department D4 for left second toe osteomyelitis. Patient has a past medical history significant for hypertension, chronic pain, diabetes, vascular dementia, arthritis, CVA, on Eliquis. Patient is a resident of [facility], on hospice for pain control seco ndary to chronic foot pain. She presents to the emergency department via EMS who were contacted by the patient's daughter who spoke with the patient today who was not feeling well. Patient was previously on hospice secondary to chronic foot pain. The ED provider spoke on the phone with the patient's daughter/POA (Anita) who is okay with her being admitted even if it meant being disenrolled from hospice care, and that this would not require reenrolling upon discharge. I did attempt to contact [place] (Anita) and was only able to leave voice mail. Allergies Allergy/AdvReac Type Severity Reaction Status Date / Time ibuprofen Allergy Unknown Unverified 05/07/23 18:17 Iodinated Contrast Media Allergy Unknown Unverified 05/07/23 18:17 iodine Allergy Unknown Unverified 05/07/23 18:17 metformin Allergy Unknown Unverified 05/07/23 18:17 naproxen Allergy Unknown Unverified 05/07/23 18:17 Penicillins Allergy Unknown Unverified 05/07/23 18:17 pregabalin Allergy Unknown Unverified 05/07/23 18:17 Home Medications Medication Instructions Recorded Confirmed Type acetaminophen 325 mg tablet 650 mg PO Q6 PRN mild pain scale 05/07/23 05/07/23 History 1-10 acetaminophen 325 mg tablet 650 mg PO Q6 PRN temp>101 05/07/23 05/07/23 History apixaban 5 mg tablet (Eliquis) 5 mg PO BID 05/07/23 05/07/23 History atorvastatin 10 mg tablet 10 mg PO DAILY 05/07/23 05/07/23 History citalopram 10 mg tablet 10 mg PO DAILY 05/07/23 05/07/23 History diclofenac sodium 1 % topical gel 1 ea topical TID 05/07/23 05/07/23 History gabapentin 400 mg capsule 400 mg PO QID 05/07/23 05/07/23 History guaifenesin 100 mg/5 mL oral liquid 200 mg PO Q4H PRN Cough 05/07/23 05/07/23 History hyoscyamine sulfate 0.125 mg tablet 0.125 mg PO Q6 PRN increased 05/07/23 05/07/23 History secretions lisinopril 2.5 mg tablet 2.5 mg PO DAILY 05/07/23 05/07/23 History lorazepam 1 mg tablet (Ativan) 0.5 mg PO BID 05/07/23 05/07/23 History magnesium chloride 64 mg 138 mg PO DAILY 05/07/23 05/07/23 History (magnesium chloride) tablet melatonin 5 mg tablet 5 mg PO HS 05/07/23 05/07/23 History morphine concentrate 5 mg/0.25 mL 5 mg PO Q4 PRN pain/SOB 05/07/23 05/07/23 History oral solution mupirocin 2 % topical ointment 1 applic topical BID 05/07/23 05/07/23 History omeprazole 20 mg capsule,delayed 20 mg PO DAILY 05/07/23 05/07/23 History release polyethylene glycol 3350 17 17 g PO BID 05/07/23 05/07/23 History gram/dose oral powder (Miralax) tramadol 50 mg tablet 50 mg PO BID 05/07/23 05/07/23 History Patient History Medical History History of deep venous thrombosis (DVT) of distal vein of right lower extremity GERD (gastroesophageal reflux disease) Hyperlipidemia Insomnia Rheumatoid arthritis Type 2 diabetes mellitus with diabetic polyneuropathy Major depressive disorder Vascular dementia Constipation Chronic pain Anticoagulated History of CVA (cerebrovascular accident) Hypertension Diabetes Social History Smoking Status: Former smoker Second Hand Exposure: No; Do You Dip or Chew Tobacco: No; Hx Alcohol Use: No Hx Substance Use: No Preferred Language: Cypriot Communication Ability: Effective Senior Sales Operations 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 Required: No Beliefs That Will Affect Care: None Current Living Situation: [facility] Feels Safe at Home: Yes Safety Concerns: Feels Safe At This Time Assistive Devices: Oxygen - Continuous Review of Systems Review of Systems: All systems reviewed & are unremarkable except as noted in HPI & below Physical Exam Constitutional: cooperative and comfortable Eyes: normal visual bhakta by confrontation Respiratory: normal respiratory effort Cardiovascular: Rate/Rhythm: regular rate and regular rhythm Vessels: posterior tibial pulses present and dorsalis pedis pulses present Musculoskeletal: Extremities: + foot abnormality (Severe bilateral HAV, 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, hammertoe deformities) Skin: + ulcer (Left second toe lesion at PIPJ with exposed head of proximal phalanx.) Neurologic: moves all extremities Psychiatric: Orientation: alert and oriented x 3 Results & Data Vital Signs (Past 12 Hours) Vital Signs Temp Pulse Pulse Resp BP BP Pulse Ox 05/07/23 19:30 76 20 119/69 96 05/07/23 18:39 68 16 113/59 L 99 05/07/23 18:30 68 20 98 05/07/23 18:30 113/59 L 05/07/23 18:00 75 18 97 05/07/23 18:00 125/62 05/07/23 17:41 73 05/07/23 17:30 74 16 97 05/07/23 17:30 106/61 05/07/23 17:00 81 19 98 05/07/23 17:00 111/57 L 05/07/23 16:30 122/63 05/07/23 16:30 81 21 98 05/07/23 16:07 76 19 128/65 99 05/07/23 15:42 88 L 05/07/23 15:30 134/68 05/07/23 15:30 84 24 95 05/07/23 15:00 83 23 96 05/07/23 15:00 138/70 05/07/23 14:41 105/80 05/07/23 14:41 94 H 24 96 05/07/23 14:30 93 H 22 97 05/07/23 14:00 131/68 05/07/23 14:00 94 H 24 95 12/22/23 13:53 98 H 05/07/23 13:23 37.8 C H 96 H 17 132/71 96 05/07/23 13:23 37.8 C H 100 H 18 132/71 86 L O2 Del Method O2 Flow Rate 05/07/23 19:30 05/07/23 18:39 Room Air 05/07/23 18:30 Room Air 05/07/23 18:30 05/07/23 18:00 05/07/23 18:00 05/07/23 17:41 05/07/23 17:30 05/07/23 17:30 05/07/23 17:00 Nasal Cannula 2 05/07/23 17:00 05/07/23 16:30 05/07/23 16:30 Nasal Cannula 2 05/07/23 16:07 Nasal Cannula 2 05/07/23 15:42 Nasal Cannula 0 05/07/23 15:30 05/07/23 15:30 Nasal Cannula 2 05/07/23 15:00 Nasal Cannula 2 05/07/23 15:00 05/07/23 14:41 05/07/23 14:41 05/07/23 14:30 05/07/23 14:00 05/07/23 14:00 05/07/23 13:53 05/07/23 13:23 Nasal Cannula 2 05/07/23 13:23 Room Air [id number] Report Patient: ASHLYN HANLEY Admit Date: 05/07/23 MR#: [id number] Address1: [facility] Acct ID:[id number] Address2: [facility] Date: 1940 [facility] Zip: [place] [address] Age: 82 Location: ED Sex: F Room/Bed: Att Phy: Diagnosis: SORE THROAT [place] Phy: Charlee Abebe Service Date: 05/07/23 Fam Phy: Interpreting Phy: Darrel Lui MDAdmit Phy: Ordering Phy: Phi Sheriff PA cc: ~ XR foot LT min 3V routine CLINICAL HISTORY: 2nd toe infection?. Left second toe pain. COMPARISON STUDY: None. FINDINGS: The bones are osteopenic. No acute fracture or dislocation within the left foot. Hallux valgus deformity noted overlying the second toe. This results in difficult evaluation of the second toe. Flexion deformities within the toes also results in suboptimal evaluation. There is evidence for a small focus of cortical erosion at the head of the second toe proximal phalanx. This is consistent with a site of osteomyelitis. Vascular calcifications are noted. No radiopaque foreign bodies. IMPRESSION: Small focus of cortical erosion at the head of the left second toe consistent with osteomyelitis. ACT 112: Negative or not required by law. Electronically signed by: Darrel Lui M.D. 05/07/2023 3:26 PM Dictated: 05/07/23 152 Transcribed: 05/07/23 152 (1) Acute osteomyelitis of toe Laterality: left Qualified Code(s): M86.172 - Other acute osteomyelitis, left ankle and foot
[2023-05-07] MEDS: DICLOFENAC SOD 1% GEL 100 GM TUBE EXT SCH (22:37)
[2023-05-07] MEDS: APIXABAN 5 MG TABLET PO SCH (22:37)
[2023-05-07] MEDS: GABAPENTIN 400 MG CAP PO SCH (22:37)
[2023-05-07] MEDS: MUPIROCIN 2% OINT 22 GM TUBE TOP SCH (22:38)
[2023-05-07] MEDS: POLYETHYLENE (MIRALAX) 17 GM PACK PO SCH (22:38)
[2023-05-07] MEDS: LORazepam 0.5 MG TAB PO SCH (22:39)
[2023-05-07] MEDS: MELATONIN 3 MG TAB PO SCH (22:39)
[2023-05-07] MEDS: traMADol HCL 50 MG TABLET PO SCH (22:39)
[2023-05-08] MEDS ORDERED: CEFEPIME 2,000 MG in SYRINGE 0 ML IV SCH
[2023-05-08] MEDS: ACETAMINOPHEN 325 MG TAB PO PRN ×2 (03:33→13:26)
[2023-05-08 07:15] LABS: Basophils # (auto) 0.04 K/uL (0.00-0.20); Basophils % (auto) 0.6 %; Eosinophils # (auto) 0.05 K/uL (0.00-0.50); Eosinophils % (auto) 0.8 %; Hematocrit (blood only) 33.4 % (37.0-47.0); Hemoglobin 10.4 g/dl (12.0-16.0); Immature Granulocytes # (auto) 0.02 K/uL (0.01-0.20); Immature Granulocytes % (auto) 0.3 %; Lymphocytes # (auto) 1.81 K/uL (1.20-3.40); Lymphocytes % (auto) 27.3 %; Mean Corpuscular Hemoglobin 27.4 pg (25.0-34.0); Mean Corpuscular Hgb Conc 31.1 g/dL (32.0-36.0); Mean Corpuscular Volume 87.9 fL (80.0-100.0); Mean Platelet Volume 11.6 fL (9.4-12.4); Monocytes # (auto) 0.63 K/uL (0.11-0.59); Monocytes % (auto) 9.5 %; Neutrophils # (auto) 4.08 K/uL (1.40-6.50); Neutrophils % (auto) 61.5 %; Platelet Count 118 K/uL (130-400); RDW Coefficient of Variation 14.6 % (11.5-14.5); RDW Standard Deviation 46.9 fL (36.4-46.3); White Blood Count 6.63 K/ul (4.8-10.8)
[2023-05-08 07:34] LABS: BUN Creatinine Ratio 26.2 (10-20); C Reactive Protein 5.52 mg/dl (0-0.5); Calcium 8.8 mg/dl (8.6-10.3); Creatinine Clr Calc Pharmacy 63.5 ml/min; Est GFR (African American) 99.2 ml/min; Est GFR (Non-African American) 85.6 ml/min; Magnesium 1.7 mg/dl (1.7-2.4); Potassium 3.7 mmol/L (3.5-5.1)
[2023-05-08] MEDS: CEFEPIME 2,000 MG in SYRINGE 0 ML IV SCH ×2 (07:58→16:15)
--- NOTE | 2023-05-08 08:28 | Hospitalist Progress Note ---
Date of Service May 08, 2023 Assessment & Plan (1) Acute osteomyelitis of toe: Plan: Patient presented for [facility] after her daughter called EMS requesting she come in Patient with hx of vascular dementia; unreliable historian; she was previously on hospice care, however, daughter/POA requested she be admitted even if this meant being disenrolled from hospice care Patient notes worsening cough, fatigue, and sore throat x 2 days; ongoing, severe pain in toes bilaterally Left foot x-ray revealed a small focus of cortical erosion at the head of the left second toe consistent with osteomyelitis Blood culture ordered, pending Daptomycin and Cefepime Apply mupirocin 2% to site twice daily Podiatry consulted Continue tramadol Continue gabapentin Acetaminophen 650 mg p.o. q4h as needed for additional pain/fever control (2) COVID-19: Plan: + COVID on arrival Unclear when symptoms began; patient says "a couple days", however sore throat has been ongoing start on remdesivir while inpatient; kidney function okay Decadron 6 mg IV daily Continue guaifenesin as needed for cough Supplemental oxygen as needed to maintain SpO2 >95% Isolation precautions in place (3) Constipation: Plan: MiraLAX twice daily (4) Chronic pain: Plan: Gabapentin adding scheduled Tylenol attempting low-dose oxycodone in hopes to replace the tramadol with oxycodone in the future (5) Hypertension: Plan: Continue lisinopril (6) Major depressive disorder: Plan: Continue citalopram (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 She complains of having pain in her feet. She is usually contrary to my suggestions. Plan for upcoming amputation by surgery once apixaban has worn off this will be is missing at least 3 doses likely plan for elective amputation of toe on 11 May Until then treat COVID treat bacterial infection optimize pain control Physical Exam Physical Exam: Patient awake and alert she is not oriented Card exam is regular without significant murmurs Lungs are clear without wheezes or crackles good air movement abdomen NABS and soft Her toes have marked deformities both feet have toes curled under at likely that the patient is ambulating some time. Her left toe has a large ulceration upon Results & Data Results & Data Vital Signs (Past 12 Hours) Vital Signs Temp Pulse Pulse Pulse Resp BP Pulse Ox 05/08/23 08:16 98.1 F 81 16 100/62 94 05/08/23 05:19 97.7 F 05/08/23 05:09 100.4 F H 93 H 20 113/64 97 05/08/23 00:25 98.8 F 82 20 136/69 95 05/07/23 22:38 77 05/07/23 20:39 73 O2 Del Method O2 Flow Rate 05/08/23 08:16 Nasal Cannula 2 05/08/23 05:19 05/08/23 05:09 Nasal Cannula 2 05/08/23 00:25 Nasal Cannula 2 05/07/23 22:38 05/07/23 20:39 Laboratory Results Reviewed CBC Reviewed chemistry Reviewed urinalysis PG Care Time/CCT Total # of Minutes Spent Total Time Spent with Patient: Total time spent is greater than 50% in coordination of care (as documented) at patient's floor/unit and/or counseling patient: Coding Level of Care Code 10867 SUB INP/OBS CARE 2/35MIN Diagnoses Acute osteomyelitis of toe M86.172 Laterality: left COVID-19 U07.1 Constipation K59.00 Chronic pain G89.29 Hypertension I10 Major depressive disorder F32.9 Type 2 diabetes mellitus with diabetic polyneuropathy E11.42 History of deep venous thrombosis (DVT) of distal vein of right lower extremity Z86.718 (1) Acute osteomyelitis of toe Laterality: left Qualified Code(s): M86.172 - Other acute osteomyelitis, left ankle and foot
[2023-05-08] MEDS ORDERED: GLUCOSE 10 TAB/TUBE PO PRN (08:30)
[2023-05-08] MEDS ORDERED: CARBOHYDRATES FOR HYPOGLYCEMIA PO PRN (08:30)
[2023-05-08] MEDS ORDERED: GLUCAGON FOR INJ 1 MG VIAL SQ PRN (08:30)
[2023-05-08] MEDS ORDERED: GLUCOSE 40% GEL 15 GM TUBE PO PRN (08:30)
[2023-05-08] MEDS ORDERED: DEXTROSE 50% 50 ML SYRINGE IV PRN (08:30)
[2023-05-08] MEDS: INSULIN ASPART PER UNIT CHARGE SC SCH ×5 (09:06→21:29)
[2023-05-08] MEDS: MAGNESIUM CHLORIDE W/CALCIUM 64MG DELAYED REL TAB PO SCH (09:22)
[2023-05-08] MEDS: PANTOprazole 40 MG TAB PO SCH (09:22)
[2023-05-08] MEDS: GABAPENTIN 400 MG CAP PO SCH ×4 (09:22→21:08)
[2023-05-08] MEDS: LORazepam 0.5 MG TAB PO SCH ×2 (09:22→21:12)
[2023-05-08] MEDS: APIXABAN 5 MG TABLET PO SCH (09:22)
[2023-05-08] MEDS: lisinopril 2.5 MG TAB PO SCH (09:22)
[2023-05-08] MEDS: traMADol HCL 50 MG TABLET PO SCH ×2 (09:22→21:12)
[2023-05-08] MEDS: dexAMETHasone 6 MG in SYRINGE 0 ML IV SCH (09:23)
[2023-05-08] MEDS: MUPIROCIN 2% OINT 22 GM TUBE TOP SCH ×2 (09:23→21:07)
[2023-05-08] MEDS: CITALOPRAM 20 MG TAB PO SCH (09:23)
[2023-05-08] MEDS: POLYETHYLENE (MIRALAX) 17 GM PACK PO SCH ×2 (09:23→21:13)
[2023-05-08] MEDS: DICLOFENAC SOD 1% GEL 100 GM TUBE EXT SCH ×3 (09:23→21:06)
[2023-05-08 09:34] LABS: Estimated Average Glucose 131 mg/dl; Hemoglobin A1C 6.2 % (4.5-5.6)
[2023-05-08 10:44] LABS: Appearance Urine Cloudy (Clear); Bacteria Urine Automated Negative (Negative); Bilirubin Urine Negative (Negative); Blood Urine 1+ (Negative); Color Urine Dark Yellow; Epithelial Cell Urine Auto >30 /lpf (0-5); Glucose Urine UA Negative (Negative); Ketones Urine Negative (Negative); Leukocyte Esterase Urine 1+ (Negative); Nitrite Urine Positive (Negative); Protein Urine Trace (Negative); RBC Urine Automated 0-4 /hpf (0-4); Specific Gravity Urine 1.036 (1.000-1.030); Urobilinogen Urine Negative (Negative); WBC Urine Automated >30 /hpf (0-5); pH Urine 5.5 (4.5-7.5)
[2023-05-08 11:11] LABS: Amorphous Sediment Urine Present (None Prsent)
--- NOTE | 2023-05-08 12:32 | Orthopedic Progress Note ---
Date of Service May 08, 2023 Assessment & Plan (1) Acute osteomyelitis of toe: Plan: Patient seen, evaluated, and treated. Reviewed x-ray and x-ray findings and physical exam with Daughter Anita. There is concern over exposed proximal head of phalanx over left second toe wound. I did review with Patient options for care. She is request surgical amputation of left toe. I did discuss appropriate timing. Patient tentatively will be scheduled for left second toe amputation on Friday 05/11. Will continue to follow while Patient remains in house. Thank you for allowing me to participate in the care of this Patient. (2) Type 2 diabetes mellitus with diabetic polyneuropathy: Admission and Anticipated Discharge Date Admission Date: May 07, 2023 Subjective Patient is an 82-year-old female seen in room 278-2 left second toe osteomyelitis. Patient has a past medical history significant for hypertension, chronic pain, diabetes, vascular dementia, arthritis, CVA, on Eliquis. Patient tested postive for Covid while in [facility] ED one day earlier. I spoke with Patient's daughter Anita who is requesting Left second toe with exposed bone and +OM be removed prior to Patient discharge. 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, hammertoe deformities) Skin: + ulcer (Left second toe lesion at PIPJ with exposed head of proximal phalanx.) Neurologic: moves all extremities Psychiatric: Orientation: alert and oriented x 3 Results & Data Vital Signs (Past 12 Hours) Vital Signs Temp Pulse Resp BP Pulse Ox O2 Del Method O2 Flow Rate 05/08/23 12:06 36.8 C 81 18 121/71 95 Room Air 05/08/23 08:16 36.7 C 81 16 100/62 94 Nasal Cannula 2 05/08/23 05:19 36.5 C 05/08/23 05:09 38.0 C H 93 H 20 113/64 97 Nasal Cannula 2 (1) Acute osteomyelitis of toe Laterality: left Qualified Code(s): M86.172 - Other acute osteomyelitis, left ankle and foot
[2023-05-08] MEDS: guaiFENesin SUGAR FREE 100 MG/5 ML UDC PO PRN (14:05)
[2023-05-08] MEDS: DAPTOmycin 325 MG in SYRINGE 0 ML IV SCH (16:25)
[2023-05-08] MEDS: oxyCODONE HCL IR 5 MG TAB (IMMEDIATE RELEASE) PO PRN (18:16)
[2023-05-08] MEDS: REMDESIVIR 100 MG in SODIUM CHLORIDE 0.9% 230 ML IV SCH (20:59)
[2023-05-08] MEDS: MELATONIN 3 MG TAB PO SCH (21:08)
[2023-05-08] MEDS: ACETAMINOPHEN 500 MG TAB PO SCH (21:11)
[2023-05-09] MEDS: CEFEPIME 2,000 MG in SYRINGE 0 ML IV SCH ×3 (00:31→16:58)
[2023-05-09 07:32] LABS: Potassium 4.4 mmol/L (3.5-5.1)
[2023-05-09 07:33] LABS: BUN Creatinine Ratio 41.4 (10-20); Calcium 9.1 mg/dl (8.6-10.3); Creatinine Clr Calc Pharmacy 73.4 ml/min; Est GFR (African American) 100.9 ml/min; Est GFR (Non-African American) 87.1 ml/min
[2023-05-09] MEDS: ACETAMINOPHEN 500 MG TAB PO SCH ×2 (08:21→22:58)
[2023-05-09] MEDS: LORazepam 0.5 MG TAB PO SCH ×2 (08:21→23:01)
[2023-05-09] MEDS: traMADol HCL 50 MG TABLET PO SCH ×2 (08:21→22:58)
[2023-05-09] MEDS: PANTOprazole 40 MG TAB PO SCH (08:21)
[2023-05-09] MEDS: POLYETHYLENE (MIRALAX) 17 GM PACK PO SCH ×2 (08:22→23:04)
[2023-05-09] MEDS: MUPIROCIN 2% OINT 22 GM TUBE TOP SCH ×2 (08:22→23:04)
[2023-05-09] MEDS: DICLOFENAC SOD 1% GEL 100 GM TUBE EXT SCH ×3 (08:24→23:04)
[2023-05-09] MEDS: MAGNESIUM CHLORIDE W/CALCIUM 64MG DELAYED REL TAB PO SCH (08:24)
[2023-05-09] MEDS: lisinopril 2.5 MG TAB PO SCH (08:24)
[2023-05-09] MEDS: dexAMETHasone 6 MG in SYRINGE 0 ML IV SCH (08:24)
[2023-05-09] MEDS: GABAPENTIN 400 MG CAP PO SCH ×4 (08:24→23:01)
[2023-05-09] MEDS: CITALOPRAM 20 MG TAB PO SCH (08:25)
[2023-05-09 08:29] LABS: Hematocrit (blood only) 34.4 % (37.0-47.0); Hemoglobin 10.6 g/dl (12.0-16.0); Mean Corpuscular Hemoglobin 27.1 pg (25.0-34.0); Mean Corpuscular Hgb Conc 30.8 g/dL (32.0-36.0); Mean Platelet Volume 11.4 fL (9.4-12.4); Platelet Count 132 K/uL (130-400); RDW Coefficient of Variation 14.4 % (11.5-14.5); RDW Standard Deviation 46.5 fL (36.4-46.3); Red Blood Count 3.91 M/uL (4.20-5.40); White Blood Count 6.24 K/ul (4.8-10.8)
[2023-05-09 08:41] LABS: ALC (manual) 3.99 K/uL (1.2-3.4); ANC (manual) 2.12 K/uL (1.4-6.5); Echinocytes 1+; Large Granular Lymph # (manua 1.06 K/uL; Large Granular Lymph % (manual) 17 %; Lymphocytes # (manual) 2.93 K/uL (1.2-3.4); Lymphocytes % (manual) 47 %; Monocytes # (manual) 0.12 K/uL (0.11-0.59); Monocytes % (manual) 2 %; Neutrophils # (manual) 2.12 K/uL (1.40-6.50); Neutrophils % (manual) 34 %
[2023-05-09] MEDS: INSULIN ASPART PER UNIT CHARGE SC SCH ×4 (09:29→23:18)
--- NOTE | 2023-05-09 13:55 | Hospitalist Progress Note ---
Date of Service May 09, 2023 Assessment & Plan (1) Acute osteomyelitis of toe: Plan: Patient presented for [facility] after her daughter called EMS Patient with hx of vascular dementia; unreliable historian; she was previously on hospice care, however, daughter/POA requested she be admitted even if this meant being disenrolled from hospice care Left foot x-ray revealed a small focus of cortical erosion at the head of the left second toe consistent with osteomyelitis Blood culture, urine culture negative to date Daptomycin and cefepime 2000 mg IV q8h Podiatry consulted, Dr Watt plans for OR 05/11/23 Continue tramadol Continue gabapentin Acetaminophen 650 mg p.o. q4h as needed for additional pain/fever control (2) COVID-19: Plan: + COVID on arrival On remdesivir while inpatient Decadron 6 mg IV daily Continue guaifenesin as needed for cough Supplemental oxygen as needed to maintain SpO2 >95% Isolation precautions in place (3) Constipation: Plan: MiraLAX twice daily (4) Chronic pain: Plan: Gabapentin (as above) (5) Hypertension: Plan: Continue lisinopril (6) Major depressive disorder: Plan: Continue citalopram (7) Type 2 diabetes mellitus with diabetic polyneuropathy: Plan: Not on any diabetic medications [facility] had patient listed as having a regular diet; ?Diet controlled No A1c on record Continue lisinopril T2DM diet BSG ACHS A1c 6.2 (8) Insomnia: Plan: Continue melatonin HS (9) Hyperlipidemia: Plan: Hold atorvastatin in the setting of daptomycin use (10) GERD (gastroesophageal reflux disease): Plan: Continue omeprazole or pantoprazole equivalent (11) History of deep venous thrombosis (DVT) of distal vein of right lower extremity: Plan: On Eliquis (12) Vascular dementia: Plan DNR/DNI T2DM diet VTE PPx: On Eliquis Admission and Anticipated Discharge Date Admission Date: May 07, 2023 Subjective Patient is fairly demented. She complains of having pain in her feet. Plan for upcoming amputation by surgery once apixaban has worn off this will be is missing at least 3 doses likely plan for elective amputation of toe on 11 May Until then treat COVID treat bacterial infection optimize pain control, did add oxycodone Physical Exam Physical Exam: Patient awake and alert she is not oriented Card exam is regular without significant murmurs Lungs are clear without wheezes or crackles good air movement abdomen NABS and soft Her toes have marked deformities both feet have toes curled under at likely that the patient is ambulating some time. Her left toe has a large ulceration upon the dorsal pip joint Results & Data Results & Data Vital Signs (Past 12 Hours) Vital Signs Temp Pulse Resp BP Pulse Ox O2 Del Method O2 Flow Rate 05/09/23 11:23 97.7 F 57 L 18 99/65 L 97 Nasal Cannula 2 05/09/23 07:36 97.7 F 79 18 110/64 95 Room Air 05/09/23 03:03 97.3 F L 47 L 16 105/62 94 Nasal Cannula 2 05/09/23 01:54 Nasal Cannula 2 Laboratory Results Reviewed CBC reviewed chemistry PG Care Time/CCT Total # of Minutes Spent Total Time Spent with Patient: Total time spent is greater than 50% in coordination of care (as documented) at patient's floor/unit and/or counseling patient: Coding Level of Care Code 22054 SUB INP/OBS CARE 2/35MIN Diagnoses Acute osteomyelitis of toe M86.172 Laterality: left COVID-19 U07.1 Constipation K59.00 Chronic pain G89.29 Hypertension I10 Major depressive disorder F32.9 Type 2 diabetes mellitus with diabetic polyneuropathy E11.42 Insomnia G47.00 Hyperlipidemia E78.5 GERD (gastroesophageal reflux disease) K21.9 History of deep venous thrombosis (DVT) of distal vein of right lower extremity Z86.718 Vascular dementia F01.50 (1) Acute osteomyelitis of toe Laterality: left Qualified Code(s): M86.172 - Other acute osteomyelitis, left ankle and foot
[2023-05-09] MEDS: DAPTOmycin 325 MG in SYRINGE 0 ML IV SCH (16:58)
[2023-05-09] MEDS: REMDESIVIR 100 MG in SODIUM CHLORIDE 0.9% 230 ML IV SCH (22:58)
[2023-05-09] MEDS: MELATONIN 3 MG TAB PO SCH (22:59)
[2023-05-09] MEDS: HEPARIN SOD 5,000 UNIT/0.5 ML VIAL SQ SCH (23:01)
[2023-05-10] MEDS: CEFEPIME 2,000 MG in SYRINGE 0 ML IV SCH ×4 (00:29→23:26)
[2023-05-10 06:32] LABS: Basophils # (auto) 0.01 K/uL (0.00-0.20); Basophils % (auto) 0.1 %; Hematocrit (blood only) 33.2 % (37.0-47.0); Hemoglobin 10.4 g/dl (12.0-16.0); Immature Granulocytes # (auto) 0.02 K/uL (0.01-0.20); Immature Granulocytes % (auto) 0.2 %; Lymphocytes # (auto) 3.92 K/uL (1.20-3.40); Lymphocytes % (auto) 45.2 %; Mean Corpuscular Hemoglobin 27.4 pg (25.0-34.0); Mean Corpuscular Hgb Conc 31.3 g/dL (32.0-36.0); Mean Corpuscular Volume 87.4 fL (80.0-100.0); Mean Platelet Volume 11.6 fL (9.4-12.4); Monocytes # (auto) 0.48 K/uL (0.11-0.59); Monocytes % (auto) 5.5 %; Neutrophils # (auto) 4.24 K/uL (1.40-6.50); Platelet Count 156 K/uL (130-400); RDW Coefficient of Variation 14.6 % (11.5-14.5); RDW Standard Deviation 46.6 fL (36.4-46.3); White Blood Count 8.67 K/ul (4.8-10.8)
[2023-05-10 06:38] LABS: BUN Creatinine Ratio 51.4 (10-20); Calcium 8.8 mg/dl (8.6-10.3); Creatinine Clr Calc Pharmacy 61.9 ml/min; Est GFR (African American) 94.8 ml/min; Est GFR (Non-African American) 81.8 ml/min; Potassium 4.2 mmol/L (3.5-5.1)
--- NOTE | 2023-05-10 07:21 | Hospitalist Progress Note ---
Date of Service May 10, 2023 Assessment & Plan (1) Acute osteomyelitis of toe: Plan: hx of vascular dementia; unreliable historian; she was previously on hospice care, however, daughter/POA requested she be admitted even if this meant being disenrolled from hospice care Left foot x-ray revealed a small focus of cortical erosion at the head of the left second toe consistent with osteomyelitis Blood culture, urine culture negative to date - rev 05/10 05/10 continue Daptomycin and cefepime 2000 mg IV q8h Podiatry consulted, Dr Watt plans for OR 05/11/23 Continue tramadol Continue gabapentin Acetaminophen 650 mg p.o. q4h as needed for additional pain/fever control apixaban has been held preoperatively npo after midnight (2) COVID-19: Plan: + COVID on arrival completes course of RDV tomorrow initially required supplemental O2 and was treated with dexamethasone, stop dex 05/10 since no longer hypoxic Continue guaifenesin as needed for cough Isolation precautions in place (3) Constipation: Plan: MiraLAX twice daily (4) Chronic pain: Plan: Gabapentin (as above) (5) Hypertension: Plan: SBP in 90s-low 100s last 24h. 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: Plan: Not on any diabetic medications [facility] had patient listed as having a regular diet; henry diet controlled T2DM diet BSG ACHS A1c 6.2 -reviewed BG 05/10 - at goal (8) Insomnia: Plan: Continue melatonin HS (9) Hyperlipidemia: Plan: Hold atorvastatin in the setting of daptomycin use (10) GERD (gastroesophageal reflux disease): Plan: Continue omeprazole or pantoprazole equivalent (11) History of deep venous thrombosis (DVT) of distal vein of right lower extremity: Plan: chronically on apixaban, held for surgery (12) Vascular dementia: Plan: stable Plan DNR/DNI T2DM diet VTE PPx: SCDs, resume apixaban when safe postop Admission and Anticipated Discharge Date Admission Date: May 07, 2023 Subjective doing ok, no pain no shortness of breath, RN at bedside notes some cough - giving robitussin. no events Physical Exam 2 Physical Exam: PHYSICAL EXAMINATION Last 24h vital signs reviewed, see documentation in flowsheet General: comfortable appearing, no distress HEENT: Normocephalic, atraumatic, pupils round and equal, sclerae anicteric, no conjunctival injection, moist mucus membranes Lungs: Normal respiratory effort. Clear to auscultation bilaterally. No RRW. occasional cough. on room air Heart: Regular rate and rhythm, no murmurs. No JVD Abdomen: Soft, nontender, nondistended. Bowel sounds present. Extremities: Warm, dry, well-perfused. No extremity edema. Neuro: Alert and oriented x 1, answers direct yes/no questions but confused, face symmetric, moves 4 extremities well Psych: Normal affect and behavior Results & Data Results & Data Vital Signs (Past 12 Hours) Vital Signs Temp Pulse Pulse Resp BP Pulse Ox O2 Del Method 05/10/23 04:51 36.7 C 60 18 133/62 97 Nasal Cannula 05/10/23 00:50 36.6 C 56 L 18 109/62 93 Room Air 05/10/23 00:00 Nasal Cannula 05/09/23 22:08 59 L 05/09/23 19:57 36.7 C 59 L 18 96/54 L 94 Nasal Cannula O2 Flow Rate 05/10/23 04:51 2 05/10/23 00:50 05/10/23 00:00 2 05/09/23 22:08 05/09/23 19:57 2 Laboratory Results 05/10/23 05:55 05/10/23 05:55 PG Care Time/CCT Total # of Minutes Spent Total Time Spent with Patient: Total time spent is greater than 50% in coordination of care (as documented) at patient's floor/unit and/or counseling patient: Coding Level of Care Code 11463 SUB INP/OBS CARE 2/35MIN Diagnoses Acute osteomyelitis of toe M86.172 Laterality: left COVID-19 U07.1 Constipation K59.00 Chronic pain G89.29 Hypertension I10 Major depressive disorder F32.9 Type 2 diabetes mellitus with diabetic polyneuropathy E11.42 Insomnia G47.00 Hyperlipidemia E78.5 GERD (gastroesophageal reflux disease) K21.9 History of deep venous thrombosis (DVT) of distal vein of right lower extremity Z86.718 Vascular dementia F01.50 (1) Acute osteomyelitis of toe Laterality: left Qualified Code(s): M86.172 - Other acute osteomyelitis, left ankle and foot
[2023-05-10] MEDS: INSULIN ASPART PER UNIT CHARGE SC SCH ×4 (08:29→20:55)
[2023-05-10] MEDS: dexAMETHasone 6 MG in SYRINGE 0 ML IV SCH (08:43)
[2023-05-10] MEDS: POLYETHYLENE (MIRALAX) 17 GM PACK PO SCH ×2 (08:43→20:33)
[2023-05-10] MEDS: LORazepam 0.5 MG TAB PO SCH ×2 (08:44→20:41)
[2023-05-10] MEDS: HEPARIN SOD 5,000 UNIT/0.5 ML VIAL SQ SCH ×2 (08:44→20:35)
[2023-05-10] MEDS: ACETAMINOPHEN 500 MG TAB PO SCH ×2 (08:44→20:33)
[2023-05-10] MEDS: traMADol HCL 50 MG TABLET PO SCH ×2 (08:44→20:41)
[2023-05-10] MEDS: MUPIROCIN 2% OINT 22 GM TUBE TOP SCH ×2 (08:44→20:34)
[2023-05-10] MEDS: GABAPENTIN 400 MG CAP PO SCH ×4 (08:44→20:33)
[2023-05-10] MEDS: MAGNESIUM CHLORIDE W/CALCIUM 64MG DELAYED REL TAB PO SCH (08:44)
[2023-05-10] MEDS: DICLOFENAC SOD 1% GEL 100 GM TUBE EXT SCH ×3 (08:44→20:34)
[2023-05-10] MEDS: PANTOprazole 40 MG TAB PO SCH (08:45)
[2023-05-10] MEDS: CITALOPRAM 20 MG TAB PO SCH (08:45)
[2023-05-10] MEDS: guaiFENesin SUGAR FREE 100 MG/5 ML UDC PO PRN (09:12)
[2023-05-10] MEDS: DAPTOmycin 325 MG in SYRINGE 0 ML IV SCH (15:37)
[2023-05-10] MEDS: oxyCODONE HCL IR 5 MG TAB (IMMEDIATE RELEASE) PO PRN (18:24)
[2023-05-10] MEDS: REMDESIVIR 100 MG in SODIUM CHLORIDE 0.9% 230 ML IV SCH (20:24)
[2023-05-10] MEDS: MELATONIN 3 MG TAB PO SCH (20:33)
--- NOTE | 2023-05-11 08:07 | Anesthesiology Consultation ---
Date of Service May 11, 2023 Assessment & Plan (1) Encounter for pre-operative examination: Chart Review Chart Review: Acceptable Risk for Surgery History Surgery Operation Date: 05/11/23 07:00 Proposed Procedures p Left 2nd Toe Amputation - Valentin Watt DPM, MS Height/Weight Height: 5 ft 4 in Weight: 70.9 kg Allergies Allergy/AdvReac Type Severity Reaction Status Date / Time ibuprofen Allergy Unknown Unverified 05/07/23 18:17 Iodinated Contrast Media Allergy Unknown Unverified 05/07/23 18:17 iodine Allergy Unknown Unverified 05/07/23 18:17 metformin Allergy Unknown Unverified 05/07/23 18:17 naproxen Allergy Unknown Unverified 05/07/23 18:17 Penicillins Allergy Unknown Unverified 05/07/23 18:17 pregabalin Allergy Unknown Unverified 05/07/23 18:17 Medications Home Medications Medication Instructions Recorded Confirmed Last Taken acetaminophen 325 mg tablet 650 mg PO Q6 PRN mild pain scale 05/07/23 05/07/23 Unknown 1-10 acetaminophen 325 mg tablet 650 mg PO Q6 PRN temp>101 05/07/23 05/07/23 Unknown apixaban 5 mg tablet (Eliquis) 5 mg PO BID 05/07/23 05/07/23 Unknown atorvastatin 10 mg tablet 10 mg PO DAILY 05/07/23 05/07/23 Unknown citalopram 10 mg tablet 10 mg PO DAILY 05/07/23 05/07/23 Unknown diclofenac sodium 1 % topical gel 1 ea topical TID 05/07/23 05/07/23 Unknown gabapentin 400 mg capsule 400 mg PO QID 05/07/23 05/07/23 Unknown guaifenesin 100 mg/5 mL oral liquid 200 mg PO Q4H PRN Cough 05/07/23 05/07/23 Unknown hyoscyamine sulfate 0.125 mg tablet 0.125 mg PO Q6 PRN increased 05/07/23 05/07/23 Unknown secretions lisinopril 2.5 mg tablet 2.5 mg PO DAILY 05/07/23 05/07/23 Unknown lorazepam 1 mg tablet (Ativan) 0.5 mg PO BID 05/07/23 05/07/23 Unknown magnesium chloride 64 mg 138 mg PO DAILY 05/07/23 05/07/23 Unknown (magnesium chloride) tablet melatonin 5 mg tablet 5 mg PO HS 05/07/23 05/07/23 Unknown morphine concentrate 5 mg/0.25 mL 5 mg PO Q4 PRN pain/SOB 05/07/23 05/07/23 Unknown oral solution mupirocin 2 % topical ointment 1 applic topical BID 05/07/23 05/07/23 Unknown omeprazole 20 mg capsule,delayed 20 mg PO DAILY 05/07/23 05/07/23 Unknown release polyethylene glycol 3350 17 17 g PO BID 05/07/23 05/07/23 Unknown gram/dose oral powder (Miralax) tramadol 50 mg tablet 50 mg PO BID 05/07/23 05/07/23 Unknown Active Medications Generic Name Dose Route Start Last Admin Trade Name Freq PRN Reason Stop Dose Admin Acetaminophen 1,000 mg 05/08/23 21:00 05/10/23 20:33 Acetaminophen 500 Mg Tab PO 06/07/23 20:59 1,000 mg BID DAWNA Administration Citalopram Hydrobromide 10 mg 05/08/23 09:00 05/10/23 08:45 Citalopram 20 Mg Tab PO 06/07/23 08:59 10 mg DAILY DAWNA Administration Diclofenac Sodium 1 gm 05/07/23 21:00 05/10/23 20:34 Diclofenac Sod 1% Gel 100 Gm Tube EXT 06/06/23 20:59 1 gm TID DAWNA Administration Protocol Gabapentin 400 mg 05/07/23 21:00 05/10/23 20:33 Gabapentin 400 Mg Cap PO 06/06/23 20:59 400 mg QID DAWNA Administration Guaifenesin 200 mg 05/07/23 20:22 05/10/23 09:12 Guaifenesin Sugar Free 100 Mg/5 Ml Udc PO 06/06/23 20:21 200 mg Q4H PRN Administration Cough Heparin Sodium (Porcine) 5,000 units 05/09/23 21:00 05/10/23 20:35 Heparin Sod 5,000 Unit/0.5 Ml Vial SQ 06/10/23 20:59 5,000 units Q12 DAWNA Administration Daptomycin 325 mg/ Syringe 6.5 mls @ 3.25 mls/min 05/08/23 16:00 05/10/23 15:37 IV 06/19/23 15:59 3.25 mls/min Q24H DAWNA Administration Protocol Remdesivir 100 mg/ Sodium 250 mls @ 250 mls/hr 05/08/23 20:00 05/10/23 22:36 Chloride IV 05/11/23 20:59 Infused Q24H DAWNA Infusion Cefepime HCl 2,000 mg/ Syringe 20 mls @ 5 mls/min 05/08/23 08:00 05/10/23 23:26 IV 06/19/23 07:59 5 mls/min Q8H DAWNA Administration Protocol Insulin Aspart 0 units 05/08/23 08:45 05/10/23 20:55 Insulin Aspart Per Unit Charge SC 06/07/23 08:44 2 units ACHS DAWNA Administration Lisinopril 2.5 mg 05/08/23 09:00 05/09/23 08:24 Lisinopril 2.5 Mg Tab PO 06/07/23 08:59 2.5 mg DAILY DAWNA Administration Lorazepam 0.5 mg 05/07/23 21:00 05/10/23 20:41 Lorazepam 0.5 Mg Tab PO 06/06/23 20:59 0.5 mg BID DAWNA Administration Magnesium Chloride 128 mg 05/08/23 09:00 05/10/23 08:44 Magnesium Chloride W/Calcium 64mg Delayed Rel Tab PO 06/07/23 08:59 128 mg DAILY DAWNA Administration Melatonin 3 mg 05/07/23 21:00 05/10/23 20:33 Melatonin 3 Mg Tab PO 06/06/23 20:59 3 mg HS DAWNA Administration Mupirocin 1 appln 05/07/23 21:00 05/10/23 20:34 Mupirocin 2% Oint 22 Gm Tube TOP 06/06/23 20:59 1 appln BID DAWNA Administration Oxycodone HCl 5 mg 05/08/23 15:14 05/10/23 18:24 Oxycodone Hcl Ir 5 Mg Tab (Immediate Release) PO 05/22/23 15:13 5 mg Q6H PRN Administration Moderate Pain 4-6/10 Pantoprazole Sodium 40 mg 05/08/23 09:00 05/10/23 08:45 Pantoprazole 40 Mg Tab PO 06/07/23 08:59 40 mg DAILY DAWNA Administration Polyethylene Glycol 17 gm 05/07/23 21:00 05/10/23 20:33 Polyethylene (Miralax) 17 Gm Pack PO 06/06/23 20:59 17 gm BID DAWNA Administration Tramadol HCl 50 mg 05/07/23 21:00 05/10/23 20:41 Tramadol Hcl 50 Mg Tablet PO 06/06/23 20:59 50 mg BID DAWNA Administration Past Medical History Medical History (Updated 05/11/23 @ 08:09 by Gallito Perdomo MD) COVID-19 weaned off oxygen History of deep venous thrombosis (DVT) of distal vein of right lower extremity GERD (gastroesophageal reflux disease) Hyperlipidemia Insomnia Rheumatoid arthritis Type 2 diabetes mellitus with diabetic polyneuropathy Major depressive disorder Vascular dementia Constipation Chronic pain Anticoagulated History of CVA (cerebrovascular accident) Hypertension Diabetes Past Surgical History Surgical History (Updated 05/11/23 @ 08:09 by Gallito Perdomo MD) No pertinent past surgical history Social History Smoking Status: Former smoker Do You Dip or Chew Tobacco: No Hx Alcohol Use: No Hx Substance Use: No substance use type: does not use Physical Exam Vital Signs Last Vital Signs Temp 36.5 C 05/11/23 05:02 Pulse 57 L 05/11/23 05:02 Resp 16 05/11/23 05:02 BP 115/70 05/11/23 05:02 Pulse Ox 92 05/11/23 05:02 O2 Del Method Room Air 05/11/23 05:02 O2 Flow Rate 2 05/10/23 04:51 Testing Laboratory Results 05/10/23 05:55 05/10/23 05:55 Hemoglobin A1c 6.2 % (4.5-5.6) H 05/08/23 06:08 Urine Color Dark Yellow 05/08/23 10:00 Urine Appearance Cloudy (Clear) A 05/08/23 10:00 Urine pH 5.5 (4.5-7.5) 05/08/23 10:00 Ur Specific Farrell 1.036 (1.000-1.030) H 05/08/23 10:00 Urine Protein Trace (Negative) H 05/08/23 10:00 Urine Glucose (UA) Negative (Negative) 05/08/23 10:00 Urine Ketones Negative (Negative) 05/08/23 10:00 Urine Nitrite Positive (Negative) A 05/08/23 10:00 Ur Leukocyte Esterase 1+ (Negative) H 05/08/23 10:00 Urine WBC (Auto) >30 /hpf (0-5) H 05/08/23 10:00 Urine RBC (Auto) 0-4 /hpf (0-4) 05/08/23 10:00 U Hyaline Cast (Auto) 1-5 /lpf (0-5) 05/08/23 10:00 U Epithel Cells (Auto) >30 /lpf (0-5) H 05/08/23 10:00 Urine Bacteria (Auto) Negative (Negative) 05/08/23 10:00 05/08/23 10:00 Urine Culture - Final Urine,Clean Catch No growth - less than 1,000 colonies/mL. 05/07/23 14:40 Aerobic Blood Culture - Preliminary Blood No growth in Aerobic bottle after 48 hours. Anaerobic Blood Culture - Preliminary No growth in Anaerobic bottle after 48 hours. 05/07/23 14:30 Aerobic Blood Culture - Preliminary Blood No growth in Aerobic bottle after 48 hours. Anaerobic Blood Culture - Preliminary No growth in Anaerobic bottle after 48 hours. 05/11/23 05/10/23 05:44 20:48 POC Glucose 137 H 171 H
[2023-05-11] MEDS: INSULIN ASPART PER UNIT CHARGE SC SCH ×4 (08:48→21:12)
[2023-05-11] MEDS: CEFEPIME 2,000 MG in SYRINGE 0 ML IV SCH ×3 (08:55→15:15)
[2023-05-11] MEDS: HEPARIN SOD 5,000 UNIT/0.5 ML VIAL SQ SCH ×2 (08:56→20:28)
--- NOTE | 2023-05-11 09:19 | History & Physical Bridge Note ---
Date of Service May 11, 2023 History & Physical Bridge Note I have examined the patient, reviewed the History & Physical and in the interval since the performance of the History & Physical I have noted the following changes of clinical significance: no changes noted
[2023-05-11] MEDS ORDERED: ATROPINE SULFATE 0.1 MG/ML 10ML SYR IV PRN (09:25)
[2023-05-11] MEDS ORDERED: LIDOCAINE 1% LOCAL 20 ML VIAL ONE (09:59)
[2023-05-11] MEDS ORDERED: CEFEPIME 2,000 MG in SYRINGE 0 ML IV ONE (10:09)
[2023-05-11] MEDS ORDERED: PROPOFOL IV EMULSION 10 MG/ML 20 ML VIAL IV ONE (10:22)
[2023-05-11] MEDS ORDERED: LIDOCAINE 2% 2 ML VIAL/AMP(20MG/ML) INFIL ONE (10:22)
--- NOTE | 2023-05-11 10:37 | Post Operative Brief Note ---
Immediate Post Op Note v1 Date of Surgery May 11, 2023 Pre & Post Diagnosis Operation Date: 05/11/23 07:00 Pre-Op Diagnosis: Left 2nd toe osteomyelitis Post-Op Diagnosis: Left 2nd toe osteomyelitis I identified the patient and participated in the time-out.: Yes Procedure Operation Date: 05/11/23 07:00 Actual Procedures p Left 2nd Toe Amputation(Left) - Valentin Watt DPM, MS Surgeon Valentin Watt DPM, MS [employer] n[employer] Estimated Blood Loss 2 Findings Consistent with Post-Op Diagnosis consistent with pre operative diagnosis Specimens Left second toe - microbiology, pathology
[2023-05-11] MEDS: ACETAMINOPHEN 500 MG TAB PO SCH ×2 (11:03→20:28)
[2023-05-11] MEDS: traMADol HCL 50 MG TABLET PO SCH ×2 (11:03→20:28)
[2023-05-11] MEDS: DICLOFENAC SOD 1% GEL 100 GM TUBE EXT SCH ×3 (11:04→20:28)
[2023-05-11] MEDS: LORazepam 0.5 MG TAB PO SCH ×2 (11:04→20:28)
[2023-05-11] MEDS: MUPIROCIN 2% OINT 22 GM TUBE TOP SCH ×2 (11:05→20:29)
[2023-05-11] MEDS: MAGNESIUM CHLORIDE W/CALCIUM 64MG DELAYED REL TAB PO SCH (11:05)
[2023-05-11] MEDS: PANTOprazole 40 MG TAB PO SCH (11:06)
[2023-05-11] MEDS: GABAPENTIN 400 MG CAP PO SCH ×4 (11:06→20:28)
[2023-05-11] MEDS: CITALOPRAM 20 MG TAB PO SCH (11:07)
[2023-05-11] MEDS: POLYETHYLENE (MIRALAX) 17 GM PACK PO SCH ×2 (11:07→20:28)
--- NOTE | 2023-05-11 12:46 | Operative Report ---
Post Operative Report Pre & Post Diagnosis Operation Date: 05/11/23 07:00 Pre-Op Diagnosis: Left 2nd toe osteomyelitis Post-Op Diagnosis: Left 2nd toe osteomyelitis I identified the patient and participated in the time-out.: Yes Procedure Operation Date: 05/11/23 07:00 Actual Procedures p Left 2nd Toe Amputation(Left) - Valentin Watt DPM, MS Surgeon Valentin Watt DPM, MS Insurance Verification Specialist nne Estimated Blood Loss 2 Findings Consistent with Post-Op Diagnosis Consistent with pre operative findings. Specimens Left second toe - microbiology and pathology Description of Procedure History of present illness: Patient is a 82 year old female who is seen for treatment of a non healing left second toe wound with exposed proximal phalanx bone. Plain film x-rays read as signs consistent with osteomyelitis of the left second toe. Patient and daughter are concerned about over laping first, second, third toes as well as contracted digits. I discussed patient's history of non healing toe wound and reviewed adjunctive correction muscle tendon balancing procedures requested by Patient and daughter. Patient and daughter aware of limitations of soft tissue procedures. All questions answered. Discussed procedure in detail and postoperative recovery with Patient and daughter Anita. All potential risks, benefits, complications, alternatives, rehab, potential for incomplete relief of symptoms, need for further surgery, DVT, PE, , persistent pain, swelling, scarring, weakness, neurovascular, wound comp lications and potential for amputations were discussed with patient. Unwanted outcomes such as, but not limited to were reviewed including under correction, overcorrection, return of deformity, infection. All questions were answered. Patient and daughter Anita have decided to proceed with procedure as indicated. 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 Surgeon Dr. Watt Insurance Verification Specialist: None Anesthesia: local with monitored anesthesia care Hemostasis: pneumatic ankle tourniquet Estimated blood loss: minimal Procedure in detail: Under mild sedation the patient was brought in the operating room placed on the operating table in supine position. A pneumatic ankle tourniquet was then placed about the patient's left ankle. Following IV sedation local anesthesia was obtained about the left foot utilizing 10 cc of 1% lidocaine plain. The foot was then prepped scrubbed and draped in usual aseptic manner. An Esmarch bandage was utilized to exsanguinate the patient's left foot and the pneumatic ankle tourniquet was then inflated. Attention was then directed to a nonhealing diabetic ulcer on the distal aspect of the left second toe. A fishmouth incision was created utilizing a sharp, sterile, #15 blade. The incision which was deepened through subcutaneous tissue using sharp blunt dissection. Care was taken to identify and retract all vital neurovascular structures. All bleeders were ligated and cauterized necessary. At this time the left second toe was removed at the metatarsal phalangeal joint and placed on the back table. The the left second toe was sent to microbiology then pathology. Copious amounts of sterile normal saline were utilized to flush the incision site. Attention was then directed to the first left great toe. At this time a using a sharp, sterile #15 blade a transverse flexor tenotomy and capsulotomy was performed to the proximal interphalangeal joint of the distal interphalangeal joint of the great toe of the left foot. Attention was then directed to the third digit. At this time a using a sharp, sterile #15 blade a transverse flexor tenotomy and capsulotomy was performed to the proximal interphalangeal joint of the distal interphalangeal joint of the third digit of the left foot. Attention was then directed to the fourth digit. At this time a using a sharp, sterile #15 blade a transverse flexor tenotomy and capsulotomy was performed to the proximal interphalangeal joint of the distal interphalangeal joint of the fourth digit of the left foot. Attention was then directed to the fifth digit. At this time a using a sharp, sterile #15 blade a transverse flexor tenotomy and capsulotomy was performed to the proximal interphalangeal joint of the distal interphalangeal joint of the fifth digit of the left foot. The skin was then primarily closed utilizing 4-0 nylon in horizontal suture mattress techniques as well as simple suture closure. Upon completion of the procedure the incision was dressed with Betadine soaked Adaptic followed by sterile compressive dressing consisting of 4 x 4's Scar Kerlix ABD. The pneumatic ankle tourniquet was inflated and a prompt hyperemic response was noted to the digits of the left foot. An Bhavesh wrap and postoperative shoe were then applied. The Patient tolerated the procedure and anesthesia well. She was transferred to recovery room vital signs stable. Following a period of postoperative monitoring the patient will be readmitted to the floor resuming all preoperative orders. I attest to the content of the Intraoperative Record and any orders documented therein. Any exceptions are noted below.
--- NOTE | 2023-05-11 13:07 | Anesthesiology Progress Note ---
Date of Service May 11, 2023 Anesthesia Post Procedure Vital Signs Vital Signs: Temp Pulse Pulse Resp BP Pulse Ox O2 Del Method 05/11/23 12:34 Room Air 05/11/23 12:15 36.6 C 73 16 112/73 95 Room Air 05/11/23 08:44 36.6 C 57 L 18 116/62 95 Room Air 05/11/23 08:35 52 L 05/11/23 05:02 36.5 C 57 L 16 115/70 92 Room Air 05/11/23 00:57 Room Air 05/11/23 00:47 51 L 05/10/23 23:30 36.5 C 59 L 18 123/68 92 Room Air 05/10/23 19:40 36.5 C 60 18 111/61 94 Room Air 05/10/23 16:09 36.5 C 62 18 104/63 95 Room Air 05/10/23 14:00 65 Transfer of Care Handoff Completed per policy Notes Mental Status: alert / awake / arousable Patient Amnestic to Procedure: Yes Nausea / Vomiting: adequately controlled Pain: adequately controlled Airway Patency, RR, SpO2: stable & adequate BP & HR: stable & adequate Hydration State: stable & adequate Anesthetic Complications: no major complications apparent
--- NOTE | 2023-05-11 14:53 | Hospitalist Progress Note ---
Date of Service May 11, 2023 Assessment & Plan (1) Acute osteomyelitis of toe: Plan: hx of vascular dementia; unreliable historian; she was previously on hospice care, however, daughter/POA requested she be admitted even if this meant being disenrolled from hospice care Left foot x-ray revealed a small focus of cortical erosion at the head of the left second toe consistent with osteomyelitis Blood culture, urine culture negative to date - rev 05/11 treated with Daptomycin and cefepime 2000 mg IV q8h Podiatry consulted, Dr Watt amputated L 2nd toe 05/11/23 Continue tramadol Continue gabapentin Acetaminophen 650 mg p.o. q4h as needed for additional pain/fever control apixaban has been held preoperatively - resume 24h postop contacted Dr. Watt to clarify whether any further antibiotics needed, likely can stop (2) COVID-19: Plan: was feeling poorly and found to have COVID-19 on arrival completed course of remdesivir in the hospital initially required supplemental O2 and was treated with dexamethasone through 05/10, stopped since no longer hypoxic Continue guaifenesin as needed for cough Isolation precautions in place (3) Constipation: Plan: MiraLAX twice daily (4) Chronic pain: Plan: Primarily feet. Gabapentin (as above) (5) Hypertension: Plan: SBP in 90s-low 100s 05/10. Normotensive today. 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: Plan: Not on any diabetic medications [facility] had patient listed as having a regular diet; henry diet controlled T2DM diet BSG ACHS A1c 6.2 -reviewed BG 05/11 - at goal (8) Insomnia: Plan: Continue melatonin HS (9) Hyperlipidemia: Plan: Hold atorvastatin in the setting of daptomycin use (10) GERD (gastroesophageal reflux disease): Plan: Continue omeprazole or pantoprazole equivalent (11) History of deep venous thrombosis (DVT) of distal vein of right lower extremity: Plan: chronically on apixaban, held for surgery (12) Vascular dementia: Plan: stable Plan DNR/DNI T2DM diet VTE PPx: SCDs, resume apixaban when safe postop Admission and Anticipated Discharge Date Admission Date: May 07, 2023 Subjective knows she is to have surgery today and worried about it. feet feel cold but no foot pain. no shortness of breath chest or abdominal pain. Physical Exam 2 Physical Exam: PHYSICAL EXAMINATION Last 24h vital signs reviewed, see documentation in flowsheet General: comfortable appearing, no distress, already wrapped in surgery blankets HEENT: Normocephalic, atraumatic, pupils round and equal, sclerae anicteric, no conjunctival injection, moist mucus membranes Lungs: Normal respiratory effort. Clear to auscultation bilaterally. No RRW. no cough observed. on room air Heart: Regular rate and rhythm, no murmurs. No JVD Abdomen: Soft, nontender, nondistended. Bowel sounds present. Extremities: Warm, dry, well-perfused. No extremity edema. Neuro: Alert and oriented to basic situation of hospital and surgery, answers direct yes/no questions but confused, face symmetric, moves 4 extremities well Psych: Normal affect and behavior Results & Data Results & Data Vital Signs (Past 12 Hours) Vital Signs Temp Pulse Pulse Resp BP Pulse Ox O2 Del Method 05/11/23 12:34 Room Air 05/11/23 12:15 36.6 C 73 16 112/73 95 Room Air 05/11/23 08:44 36.6 C 57 L 18 116/62 95 Room Air 05/11/23 08:35 52 L 05/11/23 05:02 36.5 C 57 L 16 115/70 92 Room Air Laboratory Results 05/10/23 05:55 05/10/23 05:55 PG Care Time/CCT Total # of Minutes Spent Total Time Spent with Patient: Total time spent is greater than 50% in coordination of care (as documented) at patient's floor/unit and/or counseling patient: Coding Level of Care Code 56244 SUB INP/OBS CARE 2/35MIN Diagnoses Acute osteomyelitis of toe M86.172 Laterality: left COVID-19 U07.1 Constipation K59.00 Chronic pain G89.29 Hypertension I10 Major depressive disorder F32.9 Type 2 diabetes mellitus with diabetic polyneuropathy E11.42 Insomnia G47.00 Hyperlipidemia E78.5 GERD (gastroesophageal reflux disease) K21.9 History of deep venous thrombosis (DVT) of distal vein of right lower extremity Z86.718 Vascular dementia F01.50 (1) Acute osteomyelitis of toe Laterality: left Qualified Code(s): M86.172 - Other acute osteomyelitis, left ankle and foot
[2023-05-11] MEDS: DAPTOmycin 325 MG in SYRINGE 0 ML IV SCH (15:15)
--- NOTE | 2023-05-11 16:33 | Communication Note ---
Date of Service: May 11, [address] Watt - infected tissue was removed surgically so will stop antibiotics. I also updated her daughter Anita by phone. Anticipate discharge to [facility] as early as tomorrow if still doing well postop.
[2023-05-11] MEDS: MELATONIN 3 MG TAB PO SCH (20:29)
[2023-05-11] MEDS: REMDESIVIR 100 MG in SODIUM CHLORIDE 0.9% 230 ML IV SCH (20:56)
[2023-05-12] MEDS: INSULIN ASPART PER UNIT CHARGE SC SCH ×2 (08:48→12:20)
[2023-05-12] MEDS: LORazepam 0.5 MG TAB PO SCH (09:56)
[2023-05-12] MEDS: traMADol HCL 50 MG TABLET PO SCH (09:56)
[2023-05-12] MEDS: ACETAMINOPHEN 500 MG TAB PO SCH (09:56)
[2023-05-12] MEDS: lisinopril 2.5 MG TAB PO SCH (09:57)
[2023-05-12] MEDS: MAGNESIUM CHLORIDE W/CALCIUM 64MG DELAYED REL TAB PO SCH (09:57)
[2023-05-12] MEDS: PANTOprazole 40 MG TAB PO SCH (09:57)
[2023-05-12] MEDS: CITALOPRAM 20 MG TAB PO SCH (09:57)
[2023-05-12] MEDS: GABAPENTIN 400 MG CAP PO SCH ×2 (09:58→13:38)
[2023-05-12] MEDS: DICLOFENAC SOD 1% GEL 100 GM TUBE EXT SCH ×2 (09:58→13:39)
[2023-05-12] MEDS: POLYETHYLENE (MIRALAX) 17 GM PACK PO SCH (09:58)
[2023-05-12] MEDS: MUPIROCIN 2% OINT 22 GM TUBE TOP SCH (09:59)
[2023-05-12] MEDS: HEPARIN SOD 5,000 UNIT/0.5 ML VIAL SQ SCH (09:59)
--- NOTE | 2023-05-12 12:41 | Discharge Summary ---
Date of Service May 12, 2023 Admission HPI Per Admitting Provider Ruthann is an 82-year-old female with PMH of T2DM with diabetic polyneuropathy, depression, vascular dementia, GERD, DVT, insomnia, RA, and hyperlipidemia. She presented via EMS from her [facility] at the request of her daughter who reported that she was not feeling well. Per EMS, patient required 2L as she was 90% SpO2 on RA; she also noted sore throat, upset stomach, and pain in her toes. Of note, this patient was previously on hospice secondary to chronic foot pain. However, spoke on the phone with the patient's daughter/POA (Anita) who is okay with her being admitted even if it meant being disenrolled from hospice care, and that this would not require reenrolling upon discharge. At time of admission, patient reports that her sore throat, and upset stomach has been going on for "a couple days", likely 2. She tested positive for COVID on arrival. She endorses ongoing toe pain which she rates 8/10. No radiation of the foot. She reports that she used to smoke tobacco cigarettes, but quit a long time ago. Patient's vitals are stable at time of admission. SpO2 95% on 2L. ED course: ROS: Patient endorses intermittent CP (patient is not able to describe; unknown frequency), nausea, sore throat, and pain in her toes. Patient denies fever, sweats, chills, cough, SOB, pleuritic CP, abdominal pain, vomiting, diarrhea, urinary s/s, burning with urination, or numbness/tingling going down your legs Spoke on the phone with patient's daughter/POA (Anita) and confirmed her CODE STATUS as DNR/DNI. Daughter also confirmed that the patient has had COVID vaccine x 2, but she was unsure about the booster. Principal Diagnosis COVID-19, osteomyelitis of left 2nd toe Discharge Exam PHYSICAL EXAMINATION Last 24h vital signs reviewed, see documentation in flowsheet General: comfortable appearing, lying in bed covered up in blankets awake HEENT: Normocephalic, atraumatic, pupils round and equal, sclerae anicteric, no conjunctival injection, moist mucus membranes Lungs: CTAB no rrw, room air Heart: reg no mrg Abdomen: Soft, nontender, nondistended. Bowel sounds present. Extremities: Warm, dry, well-perfused. No extremity edema. L foot in surgical dressing cdi Neuro: Alert and oriented to self and hospital, very basic situation, baseline confused, face symmetric, moves 4 extremities well Psych: Normal affect and behavior Discharge Data Allergies Allergy/AdvReac Type Severity Reaction Status Date / Time ibuprofen Allergy Unknown Unverified 05/07/23 18:17 Iodinated Contrast Media Allergy Unknown Unverified 05/07/23 18:17 iodine Allergy Unknown Unverified 05/07/23 18:17 metformin Allergy Unknown Unverified 05/07/23 18:17 naproxen Allergy Unknown Unverified 05/07/23 18:17 Penicillins Allergy Unknown Unverified 05/07/23 18:17 pregabalin Allergy Unknown Unverified 05/07/23 18:17 Consultations 05/07/23 17:12 ED Decision to Admit Stat 05/07/23 20:22 Consult Podiatry Routine Procedures Performed Operation Date: 05/11/23 07:00 Actual Procedures p Left 2nd Toe Amputation(Left) - Valentin Watt DPM, MS Ordered Studies Chest X-Ray 05/07/23 14:06 XR chest 1V portable HISTORY: cough, low grade fever COMPARISON: None. FINDINGS: Slightly rotated study. There are low lung volumes. No pneumothorax. No pleural effusions. The heart is normal in size. Mild interstitial thickening. This is likely chronic. No focal lung consolidations to suggest a pneumonia. No evidence for pulmonary edema. No acute fractures identified. IMPRESSION: Mild diffuse interstitial thickening. This is likely chronic. Otherwise, no acute process within the chest. ACT 112: Negative or not required by law. Electronically signed by: Darrel Lui M.D. 05/07/2023 2:45 PM Foot X-Ray 05/07/23 14:32 XR foot LT min 3V routine CLINICAL HISTORY: 2nd toe infection?. Left second toe pain. COMPARISON STUDY: None. FINDINGS: The bones are osteopenic. No acute fracture or dislocation within the left foot. Hallux valgus deformity noted overlying the second toe. This results in difficult evaluation of the second toe. Flexion deformities within the toes also results in suboptimal evaluation. There is evidence for a small focus of cortical erosion at the head of the second toe proximal phalanx. This is consistent with a site of osteomyelitis. Vascular calcifications are noted. No radiopaque foreign bodies. IMPRESSION: Small focus of cortical erosion at the head of the left second toe consistent with osteomyelitis. ACT 112: Negative or not required by law. Electronically signed by: Darrel Lui M.D. 05/07/2023 3:26 PM 05/10/23 05:55 05/10/23 05:55 Hospital Course (1) Acute osteomyelitis of toe: hx of vascular dementia; unreliable historian; she was previously on hospice care, however, daughter/POA requested she be admitted even if this meant being disenrolled from hospice care Left foot x-ray revealed a small focus of cortical erosion at the head of the left second toe consistent with osteomyelitis treated with Daptomycin and cefepime 2000 mg IV q8h Podiatry consulted, Dr Watt amputated L 2nd toe 05/11/23 no immediate complications Continue tramadol Continue gabapentin Acetaminophen 650 mg p.o. q4h as needed for additional pain/fever control resume apixaban discussed with Dr. Watt 05/11 - follow up in office, no further antibiotics needed since all infected tissue was removed. Blood culture NGTD, urine culture negative. rev 05/12 (2) COVID-19: was feeling poorly and found to have COVID-19 on arrival completed course of remdesivir in the hospital initially required supplemental O2 and was treated with dexamethasone through 05/10, stopped since no longer hypoxic Continue guaifenesin as needed for cough recovering well (3) Constipation: MiraLAX twice daily (4) Chronic pain: Primarily feet. Gabapentin (as above) (5) Hypertension: -continue lisinopril (6) Major depressive disorder: Continue citalopram (7) Type 2 diabetes mellitus with diabetic polyneuropathy: Not on any diabetic medications [facility] had patient listed as having a regular diet T2DM diet A1c 6.2 -reviewed BG 05/12 - at goal (8) Insomnia: Continue melatonin HS (9) Hyperlipidemia: cont atorvastatin (10) GERD (gastroesophageal reflux disease): Continue omeprazole (11) History of deep venous thrombosis (DVT) of distal vein of right lower extremity: chronically on apixaban, held for surgery, resumed (12) Vascular dementia: stable Total Time Total Time Spent Total Time Spent (In Minutes): I spent 40 minutes coordinating care for discharge including reviewing chart notes, vitals, examining patient, discussion with RN and home care provider, writing discharge orders, documentation Discharge Plan Discharge Items Patient Disposition: Transfer Half-Way Fac Reason For Visit: COVID, OSTEOMYLELITIS Discharge Diagnosis: COVID-19, left 2nd toe osteomyelitis Activity: Per Instructions section Weightbearing: Left partial Weightbearing Comment: wear surgical shoe LLE when bearing weight Non-emergency contact: Primary Care Provider and Surgeon Call non-emergency contact if: you have any medication questions, your symptoms worsen, you have a fever, your wound has increased redness and your wound has increased drainage Follow-up/Referrals: Charlee Abebe [Primary Care Provider] - Valentin Watt, DPM, MS [Physician] - (1-2 weeks follow up toe amputation) Diet: Carb Consistent or DM2 Addtl Attending Provider Instructions: Daily dry dressing change L foot Wear surgical shoe when out of bed / ambulating PT and OT eval and treat Pending Studies at Discharge: No Stand-Alone Forms: My [facility] Skilled Items Patient informed of condition?: Yes DNR: Yes Discharge Level of Care: Skilled Communicable Disease: Yes Discharge Prognosis: Improving Lines: None Urinary Catheter: No Medications and DC Order Prescriptions: Continued atorvastatin 10 mg tablet 10 mg PO DAILY citalopram 10 mg tablet 10 mg PO DAILY gabapentin 400 mg capsule 400 mg PO QID lorazepam [Ativan] 1 mg Tablet 0.5 mg PO BID diclofenac sodium 1 % gel 1 ea TOPICAL TID Rx Instructions: apply to feet Eliquis 5 mg tablet 5 mg PO BID omeprazole 20 mg capsule,delayed release(DR/EC) 20 mg PO DAILY hyoscyamine sulfate 0.125 mg Tablet 0.125 mg PO Q6 PRN (Reason: increased secretions) lisinopril 2.5 mg tablet 2.5 mg PO DAILY magnesium chloride 64 mg magnesium Tablet 138 mg PO DAILY Rx Instructions: 2 tablet dose melatonin 5 mg Tablet 5 mg PO HS tramadol 50 mg tablet 50 mg PO BID guaifenesin 100 mg/5 mL Liquid 200 mg PO Q4H PRN (Reason: Cough) polyethylene glycol 3350 [Miralax] 17 gram/dose Powder 17 g PO BID acetaminophen 325 mg Tablet 650 mg PO Q6 MDD 3g PRN (Reason: mild pain scale 1-10) acetaminophen 325 mg Tablet 650 mg PO Q6 MDD 3g PRN (Reason: temp>101) mupirocin 2 % ointment 1 applic TOPICAL BID Rx Instructions: apply to left 2nd toe every day and evening shift.cleanse with NSS,pat dry and apply bordered gauze dressing....may apply as needed for wound care Discontinued morphine concentrate 5 mg/0.25 mL Solution 5 mg PO Q4 PRN (Reason: pain/SOB) Discharge Orders: Discharge Order (Routine); Ordered 05/12/23 Ordered By: Mary Swartz Admission Data Admit Date/Time: 05/07/23 18:10 Attending Provider: Mary Swartz Admit Provider: Jam Gallagher Primary Care Provider: Charlee Abebe Other Providers: [place]; Jam Gallagher; Valentin Watt Coding Level of Care Code 79487 INP/OBS DISCH >30 MIN Diagnoses Acute osteomyelitis of toe M86.172 Laterality: left COVID-19 U07.1 Constipation K59.00 Chronic pain G89.29 Hypertension I10 Major depressive disorder F32.9 Type 2 diabetes mellitus with diabetic polyneuropathy E11.42 Insomnia G47.00 Hyperlipidemia E78.5 GERD (gastroesophageal reflux disease) K21.9 History of deep venous thrombosis (DVT) of distal vein of right lower extremity Z86.718 Vascular dementia F01.50
[2023-05-12] MEDS ORDERED: INFLUENZA VACCINE HIGH-DOSE (HD-IIV4) PF 65+ 0.7mL SYR IM ONE (14:33)
[2023-05-12] MEDS ORDERED: PNEUMOCOCCAL VACCINE (PCV20) 20-VAL CONJ-DIP CRM/PF 0.5 ML SYR IM ONE (14:34)
== END 2023-05-12 16:29 | DRG 616 ==
LOC: ED 13:12 → SUATTDRO 18:10 → 2N 18:10
DX: U07.1 COVID-19; Z91.040 Latex allergy status; Z88.0 Allergy status to penicillin; E11.69 Type 2 diabetes mellitus with other specified complication; Z79.01 Long term (current) use of anticoagulants; K59.00 Constipation, unspecified; M86.172 Other acute osteomyelitis, left ankle and foot; Z86.718 Personal history of other venous thrombosis and embolism; Z66 Do not resuscitate; M20.5X2 Other deformities of toe(s) (acquired), left foot; Z86.73 Personal history of transient ischemic attack (TIA), and cerebral infarction without residual deficits; F01.50 Vascular dementia, unspecified severity, without behavioral disturbance, psychotic disturbance, mood disturbance, and anxiety; E78.5 Hyperlipidemia, unspecified; Z87.891 Personal history of nicotine dependence; J02.9 Acute pharyngitis, unspecified; G89.29 Other chronic pain; G47.00 Insomnia, unspecified; E11.42 Type 2 diabetes mellitus with diabetic polyneuropathy; Z88.8 Allergy status to other drugs, medicaments and biological substances; I10 Essential (primary) hypertension; F32.9 Major depressive disorder, single episode, unspecified

== ENCOUNTER 2023-09-04 12:28 | Inpatient (IN) ==
[2023-09-04 13:16] LABS: Hematocrit (blood only) 37.7 % (37.0-47.0); Hemoglobin 11.9 g/dl (12.0-16.0); Mean Corpuscular Hemoglobin 28.1 pg (25.0-34.0); Mean Corpuscular Hgb Conc 31.6 g/dL (32.0-36.0); Mean Corpuscular Volume 89.1 fL (80.0-100.0); Platelet Count 182 K/uL (130-400); RDW Coefficient of Variation 14.6 % (11.5-14.5); RDW Standard Deviation 47.8 fL (36.4-46.3); Red Blood Count 4.23 M/uL (4.20-5.40); White Blood Count 13.39 K/ul (4.8-10.8)
[2023-09-04 13:18] LABS: Alanine Aminotransferase 44 U/L (7-52); Albumin Globulin Ratio 1.5 (0.9-2); Alkaline Phosphatase 121 U/L (34-104); Anion Gap 6 (3-11); Aspartate Aminotransferase 17 U/L (13-39); BUN Creatinine Ratio 45.8 (10-20); Bilirubin,Total 0.3 mg/dl (0.2-1.0); Blood Urea Nitrogen 27 mg/dl (6-23); Calcium 9.5 mg/dl (8.6-10.3); Carbon Dioxide 28 mmol/L (21-32); Chloride 105 mmol/L (98-107); Est GFR (African American) 100.3 ml/min; Est GFR (Non-African American) 86.6 ml/min; Globulin 2.6 gm/dl (2.5-4.0); Glucose 130 mg/dl (70-99(Fasting)); Lipase 9 U/L (11-82); Potassium 4.1 mmol/L (3.5-5.1); Sodium 139 mmol/L (136-145); Total Protein 6.6 gm/dl (6.0-8.3)
[2023-09-04] MEDS: methylPREDNISolone 125 MG/2 ML VIAL IV STA (13:22)
[2023-09-04] MEDS: ALBUT/IPRATROP 3MG/0.5MG NEB 3 ML VIAL NEB STA ×2 (13:22→17:38)
--- NOTE | 2023-09-04 13:23 | Emergency Department Note ---
Impression & Plan SOB (shortness of breath), Chest pain, Bilateral wheezing ED Provider Note NAME: ASHLYN HANLEY AGE: 82 SEX: Female INFORMANT: Patient ED PROVIDER(S): Valentin Lema MD CHIEF COMPLAINT: Chest pain and wheezing PLAN: Disposition: Admitted Outpatient prescription management: none Referral: None MEDICAL DECISION MAKING: Patient presented because of chest pain and wheezing. ECG did not show anything ischemic. Patient was given a DuoNeb, Solu-Medrol. Patient had chest imaging, blood work, and BioFire testing performed. Patient has a mild leukocytosis. Cardiac troponin is negative. Patient's chest x-ray revealed no evidence of pneumonia. Patient was feeling somewhat better after the first nebulizer treatment and given a second nebulizer treatment. Given the patient's chest pain and wheezing further management in the hospital seems appropriate. Consultation was made with Dr. Soham Calvo of the [facility] service. Patient was evaluated in the ER for further management. Nursing noted that the EMS reported that the nursing facility refused to give them any chart information. There was concern about this and nursing did contact the Department of Health. They noted that they will investigate the issue and recommended admission, which was already planned. Care/management discussed with: group program manager Level of care consideration(s): After review of the information above and other included data, I feel the patient requires escalation of care to admission Triage Nursing notes: reviewed and agree them. Vital Signs: reviewed and remarkable for hypertension Additional History obtained from: none Chronic Medical/Social Conditions affecting care: Nursing of status, diabetes, vascular dementia Prior/ Outside/ External records reviewed: none Differential Diagnosis: Infection, dehydration, metabolic abnormality, hypo/hyperglycemia, electrolyte disturbance, anemia, hypoxia, cardiac sources, intracerebral event, toxicologic, neurologic, as well as other pathologies. Diagnostics, independently interpreted by me: EC Lead ECG performed and revealed Normal sinus rhythm at 86, normal [place], QRS normal. No elevation or depression. No PACs or PVCs Cardiac Monitoring: Cardiac monitoring ordered by me: The patient was placed on continuous cardiac monitoring and observed. It revealed a normal sinus rhythm at 84 beats per minute without ectopy or evidence of dysrhythmia. Medical decision rules: none Imaging studies: Chest x-ray. Findings: A chest x-ray was performed and revealed no pneumothorax, effusion, infiltrate, pulmonary edema, free air under the diaphragm, or wide mediastinum. Impression: No acute disease. HPI: 82 year old Female arrives for evaluation of chest pain which she describes as a tightness. Patient also notes wheezing.This started yesterday and is persisting. The patient also notes the following associated symptoms, shortness of breath, mild cough and weakness. The patient has taken no medication for relieving factors. Current pain is rated as 0/10. Pt denies LOC, headache, fevers, chills, neck pain, nausea, vomiting, abdominal pain, back pain, melena, hematochezia, urinary symptoms, rash, or other complaints. PAST MEDICAL HISTORY: See Below, dementia, diabetes PAST SURGICAL HISTORY: See Below, SOCIAL HISTORY: See Below, retired HOME MEDICATIONS: See Below ALLERGIES: See Below VITALS: See Below PHYSICAL EXAMINATION: GENERAL: Awake, alert, uncomfortable-appearing, in no distress HENT: Normocephalic, atraumatic. Oropharynx unremarkable. EYES: Normal conjunctiva. Sclera non-icteric. NECK: Inspection normal. Non-tender. Supple. No nuchal rigidity. FROM. No masses. RESPIRATORY: Scattered wheezes bilaterally. No rales. Normal respiratory effort. CARDIAC: Normal rate. Normal rhythm. No murmurs. No rubs. Extremities warm and well perfused. Pulses equal. No JVD. GI: Soft, non-distended. No tenderness to palpation. No rebound or guarding. No masses. MUSCULOSKELETAL: Atraumatic. Chest examination reveals no tenderness. The back is symmetrical on inspection without obvious abnormality. There is no CVA tenderness to palpation. No joint edema. LOWER EXTREMITIES: Calves are equal size bilaterally and non-tender. Trace edema. No discoloration. NEURO: Normal sensorium. No sensory or motor deficits noted. SKIN: No rash or jaundice noted. PROCEDURES: none CRITICAL CARE: none OBSERVATION NOTE: none Past Med/Surg History Medical History (Updated 09/04/23 @ 18:58 by Ryan Cruz PA-C) Chronic pain COVID-19 weaned off oxygen History of deep venous thrombosis (DVT) of distal vein of right lower extremity GERD (gastroesophageal reflux disease) Hyperlipidemia Insomnia Rheumatoid arthritis Type 2 diabetes mellitus with diabetic polyneuropathy Major depressive disorder Vascular dementia Constipation Anticoagulated History of CVA (cerebrovascular accident) Hypertension Diabetes Surgical History (Updated 06/12/23 @ 00:11 by Julio Webb) No pertinent past surgical history Social History Smoking Status: Former smoker Tobacco Type: Cigarettes Second Hand Exposure: No; Do You Dip or Chew Tobacco: No; Hx Alcohol Use: No Hx Substance Use: No Preferred Language: Pashto Communication Ability: Effective Keeper Head Required: No Beliefs That Will Affect Care: None Current Living Situation: Retirement Feels Safe at Home: Yes Assistive Devices: Hospital Bed, Mechanical Lift and Wheelchair Allergies Allergies Allergy/AdvReac Type Severity Reaction Status Date / Time ibuprofen Allergy Unknown Unknown Unverified 09/04/23 17:30 Iodinated Contrast Media Allergy Unknown Unknown Unverified 09/04/23 17:30 iodine Allergy Unknown Unknown Unverified 09/04/23 17:30 metformin Allergy Unknown Unknown Unverified 09/04/23 17:30 naproxen Allergy Unknown Unknown Unverified 09/04/23 17:30 Penicillins Allergy Unknown Unknown Unverified 09/04/23 17:30 pregabalin Allergy Unknown Unknown Unverified 09/04/23 17:30 Home Meds Home Medications Medication Instructions Recorded Confirmed acetaminophen 325 mg tablet 650 mg PO Q6 PRN mild pain scale 05/07/23 09/04/23 1-10 acetaminophen 325 mg tablet 650 mg PO Q6 PRN temp>101 05/07/23 09/04/23 apixaban 5 mg tablet (Eliquis) 5 mg PO BID 05/07/23 09/04/23 atorvastatin 10 mg tablet 10 mg PO DAILY 05/07/23 09/04/23 citalopram 10 mg tablet 10 mg PO DAILY 05/07/23 09/04/23 diclofenac sodium 1 % topical gel 1 ea topical TID 05/07/23 09/04/23 ferrous sulfate 325 mg (65 mg 325 mg PO DAILY 09/04/23 09/04/23 iron) tablet (FeroSul) guaifenesin 100 mg/5 mL oral liquid 200 mg PO Q4H PRN Cough 09/04/23 09/04/23 ipratropium 0.5 mg-albuterol 3 mg 3 ml inhalation Q6 Shortness Of 09/04/23 09/04/23 (2.5 mg base)/3 mL nebulization Breath Or Wheezing soln lorazepam 1 mg tablet 0.5 mg PO DAILY 09/04/23 09/04/23 magnesium chloride 64 mg 128 mg PO DAILY 09/04/23 09/04/23 (magnesium chloride) tablet melatonin 5 mg tablet 5 mg PO HS 09/04/23 09/04/23 omeprazole 20 mg capsule,delayed 20 mg PO DAILY 09/04/23 09/04/23 release polyethylene glycol 3350 17 gram 17 g PO BID 09/04/23 09/04/23 oral powder packet (Miralax) prednisone 20 mg tablet 40 mg PO DAILY 09/04/23 09/04/23 pregabalin 50 mg capsule 50 mg PO Q8 09/04/23 09/04/23 tiotropium bromide 18 mcg capsule 2 cap inhalation DAILY 09/04/23 09/04/23 with inhalation device (Spiriva with HandiHaler) tramadol 50 mg tablet 50 mg PO BID 09/04/23 09/04/23 Results & Data (ED) Vital Signs Vital Signs - 24 hr 09/04/23 12:57 09/04/23 13:00 09/04/23 13:03 Temperature 36.8 C Temperature Source Oral Pulse Rate Pulse Rate [Left Finger] 84 Respiratory Rate 20 Respiratory Effort / Characteristics Non-Labored Spontaneous Respiratory Depth Normal Respiratory Pattern Regular Blood Pressure Blood Pressure [Right Arm] 140/68 Blood Pressure Mean Blood Pressure Mean [Right Arm] 92 Blood Pressure Position Blood Pressure Position [Right Arm] Semi-fowlers Pulse Oximetry 93 93 93 Oxygen Delivery Method Room Air Room Air Room Air Sepsis Recent Fever Within 48 Hours Sepsis New/Unexplained Change in Mental Status Sepsis Action Taken by Nursing 09/04/23 13:05 09/04/23 13:05 09/04/23 13:15 Temperature 36.8 C Temperature Source Oral Pulse Rate 84 Pulse Rate [Left Finger] Respiratory Rate 20 Respiratory Effort / Characteristics Non-Labored Spontaneous Non-Labored Spontaneous Non-Labored Respiratory Depth Normal Normal Respiratory Pattern Regular Regular Blood Pressure 140/68 Blood Pressure [Right Arm] Blood Pressure Mean 92 Blood Pressure Mean [Right Arm] Blood Pressure Position Semi-fowlers Blood Pressure Position [Right Arm] Pulse Oximetry 93 Oxygen Delivery Method Room Air Room Air Sepsis Recent Fever Within 48 Hours No Sepsis New/Unexplained Change in Mental Status No Sepsis Action Taken by Nursing No Action Required 09/04/23 13:23 09/04/23 14:10 09/04/23 14:17 Temperature Temperature Source Pulse Rate 79 Pulse Rate [Left Finger] 82 85 Respiratory Rate 16 20 Respiratory Effort / Characteristics Non-Labored Non-Labored Spontaneous Respiratory Depth Normal Normal Respiratory Pattern Regular Blood Pressure Blood Pressure [Right Arm] 149/81 H 149/81 H Blood Pressure Mean Blood Pressure Mean [Right Arm] 103 103 Blood Pressure Position Blood Pressure Position [Right Arm] Semi-fowlers Pulse Oximetry 93 92 Oxygen Delivery Method Room Air Room Air Sepsis Recent Fever Within 48 Hours Sepsis New/Unexplained Change in Mental Status Sepsis Action Taken by Nursing 09/04/23 16:25 09/04/23 17:35 09/04/23 18:16 Temperature Temperature Source Pulse Rate 72 Pulse Rate [Left Finger] 80 76 Respiratory Rate 14 18 Respiratory Effort / Characteristics Non-Labored Spontaneous Non-Labored Spontaneous Respiratory Depth Normal Normal Respiratory Pattern Regular Regular Blood Pressure Blood Pressure [Right Arm] 148/82 H 145/72 H Blood Pressure Mean Blood Pressure Mean [Right Arm] 104 96 Blood Pressure Position Blood Pressure Position [Right Arm] Semi-fowlers Semi-fowlers Pulse Oximetry 92 99 Oxygen Delivery Method Room Air Room Air Sepsis Recent Fever Within 48 Hours Sepsis New/Unexplained Change in Mental Status Sepsis Action Taken by Nursing Laboratory Data 09/04/23 12:45 09/04/23 12:45 Lab Results 09/04/23 09/04/23 Range/Units 12:45 14:31 WBC 13.39 H (4.8-10.8) K/ul RBC 4.23 (4.20-5.40) M/uL Hgb 11.9 L (12.0-16.0) g/dl Hct 37.7 (37.0-47.0) % MCV 89.1 (80.0-100.0) fL MCH 28.1 (25.0-34.0) pg MCHC 31.6 L (32.0-36.0) g/dL RDW Std Deviation 47.8 H (36.4-46.3) fL RDW Coeff of Atilio 14.6 H (11.5-14.5) % Plt Count 182 (130-400) K/uL MPV 11.0 (9.4-12.4) fL Immature Gran % (Auto) 0.4 % Neut % (Auto) 52.2 % Lymph % (Auto) 41.6 % [place] % (Auto) 5.6 % Eos % (Auto) 0.1 % Baso % (Auto) 0.1 % Neut # (Auto) 6.98 H (1.40-6.50) K/uL Lymph # (Auto) 5.57 H (1.20-3.40) K/uL [place] # (Auto) 0.75 H (0.11-0.59) K/uL Eos # (Auto) 0.02 (0.00-0.50) K/uL Baso # (Auto) 0.02 (0.00-0.20) K/uL Immature Gran # (Auto) 0.05 (0.01-0.20) K/uL [place] Cells Present Sodium 139 (136-145) mmol/L Potassium 4.1 (3.5-5.1) mmol/L Chloride 105 (98-107) mmol/L Carbon Dioxide 28 (21-32) mmol/L Anion Gap 6 (3-11) BUN 27 H (6-23) mg/dl Creatinine 0.59 L (0.6-1.2) mg/dl Est Cr Clr Drug Dosing Not Reportable Est GFR ( Amer) 100.3 ml/min Est GFR (Non-Af Amer) 86.6 ml/min BUN/Creatinine Ratio 45.8 H (10-20) Glucose 130 H (70-99(Fasting)) mg/dl Calcium 9.5 (8.6-10.3) mg/dl Total Bilirubin 0.3 (0.2-1.0) mg/dl AST 17 (13-39) U/L ALT 44 (7-52) U/L Alkaline Phosphatase 121 H (34-104) U/L Troponin I High Sens 5.1 (0-14) pg/ml B-Natriuretic Peptide 210 H (0-100) pg/ml Total Protein 6.6 (6.0-8.3) gm/dl Albumin 4.0 (3.4-5.0) gm/dl Globulin 2.6 (2.5-4.0) gm/dl Albumin/Globulin Ratio 1.5 (0.9-2) Lipase 9 L (11-82) U/L Adenovirus (PCR) Not Detected (NotDetected) B. pertussis DNA (PCR) Not Detected (NotDetected) B.parapertussis DNA PCR Not Detected (NotDetected) C. pneumoniae DNA (PCR) Not Detected (NotDetected) Coronavirus OC43 (PCR) Not Detected (NotDetected) Coronavirus HKU1 (PCR) Not Detected (NotDetected) Coronavirus 229E (PCR) Not Detected (NotDetected) SARS-CoV-2 (PCR) Not Detected (NotDetected) Coronavirus NL63 (PCR) Not Detected (NotDetected) Human Metapneumovir PCR Not Detected (NotDetected) Influenza Type A (PCR) Not Detected (NotDetected) Influenza Type B (PCR) Not Detected (NotDetected) M. pneumoniae (PCR) Not Detected (NotDetected) Parainfluenza 1 (PCR) Not Detected (NotDetected) Parainfluenza 2 (PCR) Not Detected (NotDetected) Parainfluenza 3 (PCR) Not Detected (NotDetected) Parainfluenza 4 (PCR) Not Detected (NotDetected) RSV (PCR) Not Detected (NotDetected) Entero/Rhino (PCR) Not Detected (NotDetected) Administered Medications Albuterol (Albut/Ipratrop 3mg/0.5mg Neb 3 Ml Vial) 3 ml NEB QIDR DAWNA; Protocol Stop: 10/04/23 18:59 Last Admin: 09/04/23 19:14 Dose: 3 ml Documented By: NRSergey Lactated Ringer's (Lr) 1,000 mls @ 80 mls/hr IV .[id number] [facility] Stop: 09/05/23 06:59 Last Admin: 09/04/23 19:12 Dose: 80 mls/hr Documented By: NRSergey Discontinued Medications Albuterol (Albut/Ipratrop 3mg/0.5mg Neb 3 Ml Vial) 3 ml NEB NOW STA; Protocol Stop: 09/04/23 13:20 Last Admin: 09/04/23 13:22 Dose: 3 ml Documented By: NRB Albuterol (Albut/Ipratrop 3mg/0.5mg Neb 3 Ml Vial) 3 ml NEB NOW STA; Protocol Stop: 09/04/23 17:08 Last Admin: 09/04/23 17:38 Dose: 3 ml Documented By: LMM Methylprednisolone (Methylprednisolone 125 Mg/2 Ml Vial) 125 mg IV NOW STA Stop: 09/04/23 13:20 Last Admin: 09/04/23 13:22 Dose: 125 mg Documented By: NRB Imaging Data Radiologist's Impression: Chest X-Ray 09/04/23 12:45 SINGLE VIEW CHEST CLINICAL HISTORY: Atypical chest pain FINDINGS: An AP, portable, upright chest radiograph is compared to study dated 05/07/2023. The examination is degraded by portable technique and patient rotation. The cardiomediastinal silhouette is top normal for projection noting atherosclerotic calcification of the thoracic aorta. Chronic interstitial thickening is similar to previous. There is mild bibasilar scarring/atelectasis. The lungs and pleural spaces are otherwise clear. No pneumothorax is seen. The skeletal structures are osteopenic. The bony thorax is grossly intact. Degenerative change is noted in the shoulders. IMPRESSION: No acute cardiopulmonary abnormality. ACT 112: Negative or not required by law. Electronically signed by: Ash Minor M.D. 09/04/2023 1:23 PM Discharge Plan Visit Data Chief Complaint: Chest Pain Stated Complaint: Chest pain ED Provider: Valentin Lema Discharge Problem: SOB (shortness of breath), Chest pain, Bilateral wheezing Forms Stand Alone Forms: My [facility] Prescriptions Prescriptions: No Action atorvastatin 10 mg tablet 10 mg PO DAILY citalopram 10 mg tablet 10 mg PO DAILY diclofenac sodium 1 % gel 1 ea TOPICAL TID Rx Instructions: apply to feet Eliquis 5 mg tablet 5 mg PO BID acetaminophen 325 mg Tablet 650 mg PO Q6 MDD 3g PRN (Reason: mild pain scale 1-10) acetaminophen 325 mg Tablet 650 mg PO Q6 MDD 3g PRN (Reason: temp>101) ipratropium-albuterol 0.5 mg-3 mg(2.5 mg base)/3 mL solution for nebulization 3 ml INHALATION Q6 polyethylene glycol 3350 [Miralax] 17 gram Powder In Packet 17 g PO BID prednisone 20 mg Tablet 40 mg PO DAILY Rx Instructions: End 09/05/2023 tramadol 50 mg tablet 50 mg PO BID guaifenesin 100 mg/5 mL Liquid 200 mg PO Q4H PRN (Reason: Cough) ferrous sulfate [FeroSul] 325 mg (65 mg iron) tablet 325 mg PO DAILY omeprazole 20 mg capsule,delayed release(DR/EC) 20 mg PO DAILY lorazepam 1 mg tablet 0.5 mg PO DAILY tiotropium bromide [Spiriva with HandiHaler] 18 mcg capsule, w/inhalation device 2 cap INHALATION DAILY pregabalin 50 mg capsule 50 mg PO Q8 melatonin 5 mg Tablet 5 mg PO HS magnesium chloride 64 mg magnesium Tablet 128 mg PO DAILY Referrals Referrals: Charlee Abebe [Primary Care Provider] -
--- NOTE | 2023-09-04 13:24 | XRay Report ---
SINGLE VIEW CHEST CLINICAL HISTORY: Atypical chest pain FINDINGS: An AP, portable, upright chest radiograph is compared to study dated 05/07/2023. The examin ation is degraded by portable technique and patient rotation. The cardiomediastinal silhouette is to p normal for projection noting atherosclerotic calcification of the thoracic aorta. Chronic interstit ial thickening is similar to previous. There is mild bibasilar scarring/atelectasis. The lungs and pl eural spaces are otherwise clear. No pneumothorax is seen. The skeletal structures are osteopenic. Th e bony thorax is grossly intact. Degenerative change is noted in the shoulders. IMPRESSION: No acute cardiopulmonary abnormality. ACT 112: Negative or not required by law. Electronically signed by: Ash Minor M.D. 09/04/2023 1:23 PM
[2023-09-04 13:25] LABS: Troponin I High Sensitivity 5.1 pg/ml (0-14)
[2023-09-04 13:38] LABS: Basophils # (auto) 0.02 K/uL (0.00-0.20); Basophils % (auto) 0.1 %; Eosinophils # (auto) 0.02 K/uL (0.00-0.50); Eosinophils % (auto) 0.1 %; Immature Granulocytes # (auto) 0.05 K/uL (0.01-0.20); Immature Granulocytes % (auto) 0.4 %; Lymphocytes # (auto) 5.57 K/uL (1.20-3.40); Lymphocytes % (auto) 41.6 %; Monocytes # (auto) 0.75 K/uL (0.11-0.59); Monocytes % (auto) 5.6 %; Neutrophils # (auto) 6.98 K/uL (1.40-6.50); Neutrophils % (auto) 52.2 %; Smudge Cells Present
[2023-09-04 14:20] LABS: Adenovirus PCR Not Detected (NotDetected); Bordetella parapertussis PCR Not Detected (NotDetected); Bordetella pertussis PCR Not Detected (NotDetected); Chlamydia pneumoniae PCR Not Detected (NotDetected); Coronavirus 229E PCR Not Detected (NotDetected); Coronavirus CoV-2 (COVID19)PCR Not Detected (NotDetected); Coronavirus HKU1 PCR Not Detected (NotDetected); Coronavirus NL63 PCR Not Detected (NotDetected); Coronavirus OC43PCR Not Detected (NotDetected); Human Metapneumovirus PCR Not Detected (NotDetected); Influenza A PCR Not Detected (NotDetected); Influenza B PCR Not Detected (NotDetected); Mycoplasma pneumoniae PCR Not Detected (NotDetected); Parainfluenza Virus 1 PCR Not Detected (NotDetected); Parainfluenza Virus 2 PCR Not Detected (NotDetected); Parainfluenza Virus 3 PCR Not Detected (NotDetected); Parainfluenza Virus 4 PCR Not Detected (NotDetected); Respiratory Syncytial VirusPCR Not Detected (NotDetected); Rhinovirus/Enterovirus PCR Not Detected (NotDetected)
--- NOTE | 2023-09-04 17:57 | History & Physical Report ---
Date of Service September 04, 2023 Assessment & Plan (1) COPD exacerbation: Plan: -Admit to med/surge on pulse oximetry -Currently Hemodynamically stable, stable on RA, and in no respiratory distress -Presented to the ED via EMS (Called by Her Daughter) due to the patient experiencing ongoing SOB and chest pressure -Per review of the patient's med rec, it appears that she is on day 4/5 of a 40 mg daily prednisone course, likely for COPD exacerbation -Patient was noted to have a significant amount of wheezing on arrival for ED staff, this has improved after initial treatment in the ED -Her leukocytosis is likely from her current prednisone course -CXR was negative for acute findings, negative full respiratory biofire -S/P 125 mg IV SOlu-Medrol and 2 albuterol neb treatments in the ED with patient reporting improved symptoms -We will continue her 40 mg Prednisone daily with her last dose on 09/05/23 -Will hold antibiotics at this time as she is without respiratory distress and stable on RA -Incentive spirometry, flutter therapy, scheduled Guaifenesin, QIDr DuoNebs -Continue home Spiriva -PRN O2 to keep SpO2 between 89-92% -DMII diet with soft, bite-sized texture -Home Elqiuis for DVT PPX -AM CBC, BMP, mag, PT/INR (2) Chest pain: Plan: -Patient reported substernal chest pressure prior to arrival -Reports significant improvement in her chest pressure after initial treatment in the ED -High sen trop and ECG are WNL -CXR was negative for acute findings -Likely due to her current COPD exacerbation -Monitor for ongoing improvement with continued treatment of her COPD exacerbati on (3) Unsatisfactory living conditions: Plan: -The State is opening an investigation into [facility] due to the events earlier today -Patient shoulde NOT be discharged back to [facility] -Will consult PT/OT/CM for preparations to discharge to new SNF (4) Dehydration: Plan: -Noted to be dehydrated on exam -Will give 1L LR on admission -PRN IV hydration as needed (5) History of deep venous thrombosis (DVT) of distal vein of right lower extremity: Plan: -Continue Eliquis (6) Hyperlipidemia: Plan: -Continue Atorvastatin (7) Type 2 diabetes mellitus with diabetic polyneuropathy: Plan: -Monitor BSG ACHS, goal is 110-160 while on steroids -Has not been on medical management recently as Hgb A1c earlier this month was 6.0 -Will start CF 50 ACHS for now -DMII diet -Adjust regimen as needed (8) Vascular dementia: Plan: -Currently at baseline -Will answer orientation correctly but does get confused at times -Fall/aspiration precuations (9) Chronic pain: Plan: -Due to neuropathy from DMII -Continue Gabapentin and BID tramadol for now Plan The patient was discussed with Dr. Calvo at the time of the admission History of Present Illness Chief Complaint: Chest discomfort, SOB [facility] Ruthann is an 82 year old female with a PMH significant for T2DM with diabetic polyneuropathy, depression, previous CVA with baseline left-sided weakness, vascular dementia, GERD, DVT (now on Eliquis), insomnia, RA, chronic pain due to neuropathy in the BL LE's, and hyperlipidemia who presented to the [facility] ED on 09/04/23 via EMS from [facility] with complaints of chest pain/pressure and SOB. She remained stable in the ED. Labs were significant for a leukocytosis of 13 with neutrophil predominance of 6, high sen trop of 5, BNP of 210, and full respiratory biofire negative. Chest xray was read as negative for acute findings. ECG shows NSR without acute ST segment or T-wave changes. The patient was given 2 albuterol nebulizer treatments and 125 mg IV methylprednisolone. We were asked to admit the patient as the [facility] Department of Health will be doing an investigation into [facility] as they refused to give EMS any information regarding the patient as they did not think she needed to come to the ED. The patient is also refusing to go back to [facility]. At the time of the exam the patient was lying in bed in no acute distress. Unsure how reliable of a historian the patient is as she has a hx of Vascular Dementia. She tells me that she has been experiencing progressive SOB and chest pressure over the past "few" days. Denies chest pain, productive cough, hemoptysis, abd pain, vomiting, dysuria, hematuria, diarrhea, melena. When asked, she feels as thought her SOB and chest pressure have both improved significantly after the 2 DuoNeb treatments she received in the ED. I attempted to call both [facility] but was sent to the Nursing Shellacker's voicemail. I called and spoke to the Patient's Daughter/POA (Anita Morrell [phone]). She tells me that the patient called her this am stating that she felt very SOB, had chest pressure, nausea, and wished to be evaluated at the Hospital. The patient's Daughter called [facility] who was refusing to send the patient for evaluation as they claimed she did not have any acute medical issues. The patient's Daughter is very frustrated with [facility] staff as she claims they have treated her mother poorly by ignoring her, calling her "retarted", and making the patient fearful for her safety. The patient's Daughter does NOT want the patient to be sent back to [facility] on discharge. Per review of the patient's med rec, she was started on a 5 day course of 40 mg PO Prednisone daily on 08/31/23 for her COPD symptoms. Please refer to Dr. Calvo's attestation for any changes to the treatment plan Allergies Allergy/AdvReac Type Severity Reaction Status Date / Time ibuprofen Allergy Unknown Unknown Unverified 09/04/23 17:30 Iodinated Contrast Media Allergy Unknown Unknown Unverified 09/04/23 17:30 iodine Allergy Unknown Unknown Unverified 09/04/23 17:30 metformin Allergy Unknown Unknown Unverified 09/04/23 17:30 naproxen Allergy Unknown Unknown Unverified 09/04/23 17:30 Penicillins Allergy Unknown Unknown Unverified 09/04/23 17:30 pregabalin Allergy Unknown Unknown Unverified 09/04/23 17:30 Home Medications Medication Instructions Recorded Confirmed Type acetaminophen 325 mg tablet 650 mg PO Q6 PRN mild pain scale 05/07/23 09/04/23 History 1-10 acetaminophen 325 mg tablet 650 mg PO Q6 PRN temp>101 05/07/23 09/04/23 History apixaban 5 mg tablet (Eliquis) 5 mg PO BID 05/07/23 09/04/23 History atorvastatin 10 mg tablet 10 mg PO DAILY 05/07/23 09/04/23 History citalopram 10 mg tablet 10 mg PO DAILY 05/07/23 09/04/23 History diclofenac sodium 1 % topical gel 1 ea topical TID 05/07/23 09/04/23 History ferrous sulfate 325 mg (65 mg 325 mg PO DAILY 09/04/23 09/04/23 History iron) tablet (FeroSul) guaifenesin 100 mg/5 mL oral liquid 200 mg PO Q4H PRN Cough 09/04/23 09/04/23 History ipratropium 0.5 mg-albuterol 3 mg 3 ml inhalation Q6 Shortness Of 09/04/23 09/04/23 History (2.5 mg base)/3 mL nebulization Breath Or Wheezing soln lorazepam 1 mg tablet 0.5 mg PO DAILY 09/04/23 09/04/23 History magnesium chloride 64 mg 128 mg PO DAILY 09/04/23 09/04/23 History (magnesium chloride) tablet melatonin 5 mg tablet 5 mg PO HS 09/04/23 09/04/23 History omeprazole 20 mg capsule,delayed 20 mg PO DAILY 09/04/23 09/04/23 History release polyethylene glycol 3350 17 gram 17 g PO BID 09/04/23 09/04/23 History oral powder packet (Miralax) prednisone 20 mg tablet 40 mg PO DAILY 09/04/23 09/04/23 History pregabalin 50 mg capsule 50 mg PO Q8 09/04/23 09/04/23 History tiotropium bromide 18 mcg capsule 2 cap inhalation DAILY 09/04/23 09/04/23 History with inhalation device (Spiriva with HandiHaler) tramadol 50 mg tablet 50 mg PO BID 09/04/23 09/04/23 History Past Med/Surg History Medical History (Updated 09/04/23 @ 18:58 by Ryan Cruz PA-C) Chronic pain COVID-19 weaned off oxygen History of deep venous thrombosis (DVT) of distal vein of right lower extremity GERD (gastroesophageal reflux disease) Hyperlipidemia Insomnia Rheumatoid arthritis Type 2 diabetes mellitus with diabetic polyneuropathy Major depressive disorder Vascular dementia Constipation Anticoagulated History of CVA (cerebrovascular accident) Hypertension Diabetes Surgical History (Updated 06/12/23 @ 00:11 by Julio Webb) No pertinent past surgical history Social History Smoking Status: Never smoker Tobacco Type: Cigarettes Second Hand Exposure: No; Do You Dip or Chew Tobacco: No; Hx Alcohol Use: No Hx Substance Use: No Preferred Language: Libyan Communication Ability: Effective Medical Advisor Required: No Beliefs That Will Affect Care: None Current Living Situation: [facility] Current Living Situation Comment: [facility] Other Information That Helps Us Care for You: Yes (refusing to go back to [facility] d/t care recieved there) Feels Safe at Home: No Is there a partner from a previous relationship who is making you feel unsafe now?: No Any Concerns about Your Family Situation: No Would You Like to Speak to Someone About Your Situation: Yes Safety Concerns: Afraid for Self Assistive Devices: Wheelchair Assistive Devices Comment: dentures and glasses at home Physical Exam Physical Exam: Physical Exam: General: In no acute distress, stated age, chronically ill appearing but non- toxic HEENT: Normocephalic, atraumatic, no scleral icterus, pupils around round, symmetrical, and reactive to light, dry mucus membranes, trachea midline, no thyromegaly Chest/Pulm: No respiratory distress, symmetrical chest expansion, scattered expiratory wheezing Cardiac: RRR, no murmurs noted Abdomen: Negative for ascites and bruising, normoactive bowel sounds, soft, non-tender to palpation throughout Musculoskeletal: Patient with spasticity of the LUE from previous [place], otherwise she is without acute trauma or weakness Extremities: Radial, dorsalis pedis, and posterior tibial pulses are intact and symmetrical, no edema noted in the BL LE's Skin: Warm, dry, no rashes , lesions, or scars noted Neuro: Alert and oriented to person, place, month, year, unable to tell me her current place of residence, baseline left sided weakness from previous CVA noted Psych: No acute distress, calm and cooperative during the exam Results & Data Results & Data Vital Signs (Past 12 Hours) Vital Signs Temp Pulse Pulse Resp BP BP Pulse Ox 09/04/23 17:35 72 09/04/23 16:25 80 14 148/82 H 92 09/04/23 14:17 85 20 149/81 H 92 09/04/23 14:10 82 16 149/81 H 93 09/04/23 13:23 79 09/04/23 13:05 36.8 C 84 20 140/68 93 09/04/23 13:05 09/04/23 13:03 93 09/04/23 13:00 93 09/04/23 12:57 36.8 C 84 20 140/68 93 O2 Del Method 09/04/23 17:35 09/04/23 16:25 Room Air 09/04/23 14:17 Room Air 09/04/23 14:10 Room Air 09/04/23 13:23 09/04/23 13:05 Room Air 09/04/23 13:05 Room Air 09/04/23 13:03 Room Air 09/04/23 13:00 Room Air 09/04/23 12:57 Room Air Laboratory Results Abnormal lab results 09/04/23 09/04/23 Range/Units 12:45 14:31 WBC 13.39 H (4.8-10.8) K/ul Hgb 11.9 L (12.0-16.0) g/dl MCHC 31.6 L (32.0-36.0) g/dL RDW Std Deviation 47.8 H (36.4-46.3) fL RDW Coeff of Atilio 14.6 H (11.5-14.5) % Neut # (Auto) 6.98 H (1.40-6.50) K/uL Lymph # (Auto) 5.57 H (1.20-3.40) K/uL [place]arrow # (Auto) 0.75 H (0.11-0.59) K/uL BUN 27 H (6-23) mg/dl Creatinine 0.59 L (0.6-1.2) mg/dl BUN/Creatinine Ratio 45.8 H (10-20) Glucose 130 H (70-99(Fasting)) mg/dl Alkaline Phosphatase 121 H (34-104) U/L B-Natriuretic Peptide 210 H (0-100) pg/ml Lipase 9 L (11-82) U/L Diagnostic Findings Chest X-Ray 09/04/23 12:45 SINGLE VIEW CHEST CLINICAL HISTORY: Atypical chest pain FINDINGS: An AP, portable, upright chest radiograph is compared to study dated 05/07/2023. The examination is degraded by portable technique and patient rotation. The cardiomediastinal silhouette is top normal for projection noting atherosclerotic calcification of the thoracic aorta. Chronic interstitial thickening is similar to previous. There is mild bibasilar scarring/atelectasis. The lungs and pleural spaces are otherwise clear. No pneumothorax is seen. The skeletal structures are osteopenic. The bony thorax is grossly intact. Degenerative change is noted in the shoulders. IMPRESSION: No acute cardiopulmonary abnormality. ACT 112: Negative or not required by law. Electronically signed by: Ash Minor M.D. 09/04/2023 1:23 PM ECG Additional Comments: Normal sinus rhythm Normal ECG No previous ECGs available Code Status & VTE Plan Code Status DNR/DNI VTE Prophylaxis Plan VTE Prophylaxis will be ordered: Yes Supervising Physician Co-Signing Physician Notes I personally saw and examined the patient. I verified all barrera points and agree with Ryan Cruz PA-C with the following exceptions and/or additions: Ruthann Oro is an 82 year old female who presents to the ER from [facility] after EMS called by a relative as patient complaining of chest pain and shortness of breath. Reportedly [facility] staff refused to give EMS any information regarding the patient as they did not think she needed to come to the ED. Family now refusing discharge back to [facility]. O/E HS RRR, no murmurs, Chest CTAB, no wheezing or respiratory distress, Abdo SNT, no CVA tenderness, no areas of cellulitis seen A/P Concern for return to the care home - main reason for admission as per history above, COPD exacerbation - currently on treatment for this, no current wheezing but will finish prednisone dosing from care home, suspect current leukocytosis from current prednisone Abnormal UA - no current symptoms per patient, wait culture PG Care Time/CCT Total # of Minutes Spent Total Time Spent with Patient: Total time spent is greater than 50% in coordination of care (as documented) at patient's floor/unit and/or counseling patient: Coding [place] [address] INT INP/OBS CARE 3/75MIN Patient Type Established Medical Decision Making High Complexity Diagnoses COPD exacerbation J44.1 Chest pain R07.9 Unsatisfactory living conditions Z59.19 Dehydration E86.0 History of deep venous thrombosis (DVT) of distal vein of right lower extremity Z86.718 Hyperlipidemia E78.5 Type 2 diabetes mellitus with diabetic polyneuropathy E11.42 Vascular dementia F01.50 Chronic pain G89.29
[2023-09-04] MEDS ORDERED: DEXTROSE 50% 50 ML SYRINGE IV PRN (18:13)
[2023-09-04] MEDS ORDERED: GLUCAGON FOR INJ 1 MG VIAL SQ PRN (18:13)
[2023-09-04] MEDS ORDERED: CARBOHYDRATES FOR HYPOGLYCEMIA PO PRN (18:13)
[2023-09-04] MEDS ORDERED: GLUCOSE 40% GEL 15 GM TUBE PO PRN (18:13)
[2023-09-04] MEDS ORDERED: GLUCOSE 10 TAB/TUBE PO PRN (18:13)
[2023-09-04] MEDS: LACTATED RINGER'S 1,000 ML IV SCH (19:12)
[2023-09-04] MEDS: ALBUT/IPRATROP 3MG/0.5MG NEB 3 ML VIAL NEB SCH (19:14)
[2023-09-04] MEDS: guaiFENesin 600 MG TABCR PO SCH (21:56)
[2023-09-04] MEDS: MELATONIN 3 MG TAB PO SCH (21:57)
[2023-09-04] MEDS: APIXABAN 5 MG TABLET PO SCH (21:58)
[2023-09-04] MEDS: POLYETHYLENE (MIRALAX) 17 GM PACK PO SCH (21:59)
[2023-09-04] MEDS: PREGABALIN 50 MG CAP PO SCH (22:03)
[2023-09-04] MEDS: traMADol HCL 50 MG TABLET PO SCH (22:03)
[2023-09-04] MEDS: INSULIN ASPART PER UNIT CHARGE SC SCH (22:04)
[2023-09-05 06:15] LABS: Basophils # (auto) 0.01 K/uL (0.00-0.20); Basophils % (auto) 0.1 %; Hematocrit (blood only) 37.1 % (37.0-47.0); Hemoglobin 11.9 g/dl (12.0-16.0); Immature Granulocytes # (auto) 0.05 K/uL (0.01-0.20); Immature Granulocytes % (auto) 0.4 %; Lymphocytes # (auto) 4.83 K/uL (1.20-3.40); Lymphocytes % (auto) 42.6 %; Mean Corpuscular Hemoglobin 28.6 pg (25.0-34.0); Mean Corpuscular Hgb Conc 32.1 g/dL (32.0-36.0); Mean Corpuscular Volume 89.2 fL (80.0-100.0); Mean Platelet Volume 11.2 fL (9.4-12.4); Monocytes # (auto) 0.34 K/uL (0.11-0.59); Neutrophils # (auto) 6.11 K/uL (1.40-6.50); Neutrophils % (auto) 53.9 %; Platelet Count 177 K/uL (130-400); RDW Coefficient of Variation 14.6 % (11.5-14.5); RDW Standard Deviation 47.2 fL (36.4-46.3); Red Blood Count 4.16 M/uL (4.20-5.40); White Blood Count 11.34 K/ul (4.8-10.8)
[2023-09-05 06:16] LABS: Appearance Urine Turbid (Clear); Bacteria Urine Automated 4+ (None Seen); Bilirubin Urine Negative (Negative); Blood Urine 3+ (Negative); Cast Urine Automated 0-2 /lpf (0-2); Color Urine Yellow; Epithelial Cell Urine Auto 0-2 /hpf (0-2); Glucose Urine UA Negative (Negative); Ketones Urine Trace (Negative); Leukocyte Esterase Urine 2+ (Negative); Nitrite Urine Negative (Negative); Protein Urine 2+ (Negative); Specific Gravity Urine 1.038 (1.000-1.030); Urobilinogen Urine Negative (Negative); WBC Urine Automated >50 /hpf (0-5); pH Urine >= 9.0 (4.5-7.5)
[2023-09-05 06:35] LABS: BUN Creatinine Ratio 60.8 (10-20); Calcium 9.3 mg/dl (8.6-10.3); Creatinine Clr Calc Pharmacy 85.3 ml/min; Est GFR (African American) 105.3 ml/min; Est GFR (Non-African American) 90.8 ml/min; Magnesium 1.9 mg/dl (1.7-2.4); Potassium 4.3 mmol/L (3.5-5.1)
[2023-09-05 06:41] LABS: INR 1.1 (0.9-1.1); Prothrombin Time 11.9 Seconds (9.0-12.0)
[2023-09-05] MEDS: PANTOprazole 40 MG TAB PO SCH (08:30)
[2023-09-05] MEDS: MAGNESIUM CHLORIDE W/CALCIUM 64MG DELAYED REL TAB PO SCH (08:30)
[2023-09-05] MEDS: CITALOPRAM 20 MG TAB PO SCH (08:30)
[2023-09-05] MEDS: FERROUS SULFATE 325 MG TAB PO SCH (08:31)
[2023-09-05] MEDS: UMECLIDINIUM BROMIDE 62.5MCG/BLISTER 7 PUFFS/INHALER INH SCH (08:31)
[2023-09-05] MEDS: ATORVASTATIN 10 MG TAB PO SCH (08:31)
[2023-09-05] MEDS: predniSONE 20 MG TAB PO SCH (08:31)
[2023-09-05] MEDS: LORazepam 0.5 MG TAB PO SCH (08:33)
[2023-09-05] MEDS: cefTRIAXone SODIUM 1,000 MG in DEXTROSE 5 % MINI-B 50 ML IV SCH (08:40)
--- NOTE | 2023-09-05 17:10 | Hospitalist Progress Note ---
Date of Service September 05, 2023 Assessment & Plan (1) COPD exacerbation: Plan: Noted to be wheezing in ED but not currently. Given solumedrol and albuterol -CXR clear and resp biofire neg -continue oral prednisone - this is day 5 -Incentive spirometry, flutter therapy, scheduled Guaifenesin, QIDr DuoNebs -Continue home Spiriva -PRN O2 to keep SpO2 between 89-92% -procalcitonin negative, consider doxycycline if dyspnea/exacerbation persists (2) Chest pain: Plan: -Patient reported substernal chest pressure prior to arrival - says she has chest tightness when dyspneic, none now -Reports significant improvement in her chest pressure after initial treatment in the ED -High sen trop and ECG are WNL -CXR was negative for acute findings -Related to current COPD exacerbation (3) Type 2 diabetes mellitus with diabetic polyneuropathy: Plan: -Monitor BSG ACHS, goal is 110-160 while on steroids -Has not been on medical management recently as Hgb A1c earlier this month was 6.0 -Will start CF 50 ACHS for now -DMII diet -BG at goal 09/04 Plan Possible UTI - abnormal UA with pyuria, urine culture pending, unclear whether symptomatic - CTX pending culture smudge cells on blood smear - follow up path review Diabetic neuropathy with chronic pain -Continue Gabapentin and BID tramadol Vascular dementia -Will answer orientation correctly but does get confused at times -Fall/aspiration precuations HLD - cont atorvastatin DVT ppx - on apixaban for hx DVT -Will consult PT/OT/CM for preparations to discharge to new SNF Admission and Anticipated Discharge Date Admission Date: September 04, 2023 Subjective Ruthann states shortness of breath is improved. No abdominal pain or dysuria. Denies chest pain but says chest feels tight when her breathing is bad. Physical Exam 2 Physical Exam: PHYSICAL EXAMINATION Last 24h vital signs reviewed, see documentation in flowsheet General: comfortable appearing, no distress, awake eating HEENT: Normocephalic, atraumatic, pupils round and equal, sclerae anicteric, no conjunctival injection, moist mucus membranes Lungs: Normal respiratory effort. scattered coarse sounds bilaterally. No wheezing Heart: Regular rate and rhythm, no murmurs. No JVD Abdomen: Soft, nontender, nondistended. Bowel sounds present. Extremities: Warm, dry, well-perfused. No extremity edema. Neuro: Alert and oriented x self and basic situation, face symmetric, moves 4 extremities spontaneously Psych: Normal affect and behavior Results & Data Results & Data Vital Signs (Past 12 Hours) Vital Signs Temp Pulse Resp BP Pulse Ox O2 Del Method 09/05/23 14:03 16 94 Room Air 09/05/23 11:08 74 16 93 Room Air 09/05/23 08:15 Room Air 09/05/23 07:36 37.0 C 70 18 136/79 94 Room Air 09/05/23 07:21 68 15 92 Room Air Laboratory Results 09/05/23 05:34 09/05/23 05:34 PG Care Time/CCT Total # of Minutes Spent Total Time Spent with Patient: Total time spent is greater than 50% in coordination of care (as documented) at patient's floor/unit and/or counseling patient: Coding Level of Care Code 38052 SUB INP/OBS CARE 2/35MIN Diagnoses COPD exacerbation J44.1 Chest pain R07.9 Type 2 diabetes mellitus with diabetic polyneuropathy E11.42
[2023-09-05] MEDS: LACTATED RINGER'S 1,000 ML IV SCH (20:30)
--- NOTE | 2023-09-05 22:26 | Electrocardiogram Report ---
Test Reason : Blood Pressure : / mmHG Vent. Rate : 086 BPM Atrial Rate : 086 BPM P-R Int : 134 ms QRS Dur : 072 ms QT Int : 378 ms P-R-T Axes : 002 004 041 degrees QTc Int : 452 ms Normal sinus rhythm Normal ECG No previous ECGs available Confirmed by Tristan Moreno ([id number]) on 09/05/2023 10:25:52 PM Referred By: [facility] Confirmed By:Tristan Moreno
[2023-09-06 07:36] LABS: Hematocrit (blood only) 35.8 % (37.0-47.0); Hemoglobin 11.4 g/dl (12.0-16.0); Mean Corpuscular Hemoglobin 28.1 pg (25.0-34.0); Mean Corpuscular Hgb Conc 31.8 g/dL (32.0-36.0); Mean Corpuscular Volume 88.4 fL (80.0-100.0); Mean Platelet Volume 10.8 fL (9.4-12.4); Platelet Count 183 K/uL (130-400); RDW Coefficient of Variation 14.9 % (11.5-14.5); RDW Standard Deviation 47.9 fL (36.4-46.3); Red Blood Count 4.05 M/uL (4.20-5.40); White Blood Count 13.88 K/ul (4.8-10.8)
[2023-09-06 08:03] LABS: Calcium 8.9 mg/dl (8.6-10.3); Creatinine Clr Calc Pharmacy 75.3 ml/min; Est GFR (African American) 100.9 ml/min; Est GFR (Non-African American) 87.1 ml/min; Magnesium 1.9 mg/dl (1.7-2.4); Potassium 4.1 mmol/L (3.5-5.1)
[2023-09-06 08:39] LABS: Basophils # (auto) 0.02 K/uL (0.00-0.20); Basophils % (auto) 0.1 %; Eosinophils # (auto) 0.03 K/uL (0.00-0.50); Eosinophils % (auto) 0.2 %; Immature Granulocytes # (auto) 0.05 K/uL (0.01-0.20); Immature Granulocytes % (auto) 0.4 %; Lymphocytes # (auto) 7.53 K/uL (1.20-3.40); Lymphocytes % (auto) 54.3 %; Monocytes # (auto) 0.81 K/uL (0.11-0.59); Monocytes % (auto) 5.8 %; Neutrophils # (auto) 5.44 K/uL (1.40-6.50); Neutrophils % (auto) 39.2 %; Polychromasia 1+; Smudge Cells Present
--- NOTE | 2023-09-06 18:11 | Hospitalist Progress Note ---
Date of Service September 06, 2023 Assessment & Plan (1) COPD exacerbation: Plan: Noted to be wheezing in ED but not currently. Given solumedrol and albuterol -CXR clear and resp biofire neg -treated with 5 days oral prednisone - last dose 09/04, not wheezing today hold off on further steroids -Incentive spirometry, flutter therapy, scheduled Guaifenesin, QIDr DuoNebs -Continue home Spiriva -PRN O2 to keep SpO2 between 89-92% -procalcitonin negative, consider doxycycline if dyspnea/exacerbation persists (2) Chest pain: Plan: -Patient reported substernal chest pressure prior to arrival - she described a central chest tightness with breathing to me -Reports significant improvement in her chest pressure after initial treatment in the ED -High sen trop and ECG are WNL -CXR was negative for acute findings -Likely due to her current COPD exacerbation -Monitor for ongoing improvement with continued treatment of her COPD exacerbation -No chest pain 09/05 (3) Unsatisfactory living conditions: Plan: Discussed with patient care coordinator - her daughter does not want her to return to [facility]. She has been bedbound with lift for several years and does not meet criteria for skilled PT/OT. (4) Dehydration: Plan: -Noted to be dehydrated on exam -IV fluids given on admission (5) History of deep venous thrombosis (DVT) of distal vein of right lower extremity: Plan: -apixaban held for hematuria (6) Hyperlipidemia: Plan: -Continue Atorvastatin (7) Type 2 diabetes mellitus with diabetic polyneuropathy: Plan: -Monitor BSG ACHS, goal is 110-160 while on steroids -Has not been on medical management recently as Hgb A1c earlier this month was 6.0 -continue CF 50 ACHS for now -DMII diet -BG at goal (8) Vascular dementia: Plan: -Currently at baseline -Will answer orientation correctly but does get confused at times and is forgetful -Fall/aspiration precautions (9) Chronic pain: Plan: -Due to neuropathy from DMII -Continue Gabapentin and BID tramadol for now Plan UTI -pyuria and hematuria, possible SP tenderness/bladder pain - on ceftriaxone, culture pending -monitor hematuria, refused ng, bladder scan PRN Leukocytosis with absolute lymphocytosis and smudge cells - concerning for CLL -path review - flow cytometry submitted - pending "Laboratory requested review of a peripheral blood smear shows an absolute lymphocytosis. Many of the lymphocytes have irregularly clumped chromatin. The findings could represent a low grade lymphoproliferative disorder, such as CLL or monoclonal B lymphocytosis. Review of the EHR does not reveal a history of a lymphoproliferative disorder.Flow cytometry will be performed and reported in a separate [facility] report.Fermin Woody M.D." DVT ppx - held apixaban for hematuria, ordered SCDs Admission and Anticipated Discharge Date Admission Date: September 04, 2023 Subjective forgetful and pleasantly confused breathing is fine and no CP, has some lower abdominal pain Physical Exam 2 Physical Exam: PHYSICAL EXAMINATION Last 24h vital signs reviewed, see documentation in flowsheet General: comfortable appearing, no distress, awake HEENT: Normocephalic, atraumatic, pupils round and equal, sclerae anicteric, no conjunctival injection, moist mucus membranes Lungs: Normal respiratory effort. scattered coarse sounds bilaterally. No wheezing Heart: Regular rate and rhythm, no murmurs. No JVD Abdomen: Soft, nontender except possible mild SP tenderness, nondistended. Bowel sounds present. Extremities: Warm, dry, well-perfused. No extremity edema. Neuro: Alert and oriented x self and basic situation but very poor short term memory, face symmetric, moves 4 extremities spontaneously Psych: Normal affect and behavior Results & Data Results & Data Vital Signs (Past 12 Hours) Vital Signs Temp Pulse Resp BP Pulse Ox O2 Del Method 09/06/23 15:15 15 91 Room Air 09/06/23 14:03 36.8 C 77 16 120/79 94 Room Air 09/06/23 11:36 71 18 94 Room Air 09/06/23 07:57 59 L 17 93 Room Air 09/06/23 07:00 Room Air 09/06/23 06:58 36.7 C 60 16 156/79 H 95 Room Air Laboratory Results 09/06/23 07:06 09/06/23 07:06 PG Care Time/CCT Total # of Minutes Spent Total Time Spent with Patient: Total time spent is greater than 50% in coordination of care (as documented) at patient's floor/unit and/or counseling patient: Coding Level of Care Code 34078 SUB INP/OBS CARE 2/35MIN Diagnoses COPD exacerbation J44.1 Chest pain R07.9 Unsatisfactory living conditions Z59.19 Dehydration E86.0 History of deep venous thrombosis (DVT) of distal vein of right lower extremity Z86.718 Hyperlipidemia E78.5 Type 2 diabetes mellitus with diabetic polyneuropathy E11.42 Vascular dementia F01.50 Chronic pain G89.29
[2023-09-07 07:50] LABS: Hematocrit (blood only) 41.7 % (37.0-47.0); Hemoglobin 13.4 g/dl (12.0-16.0); Mean Corpuscular Hemoglobin 28.5 pg (25.0-34.0); Mean Corpuscular Hgb Conc 32.1 g/dL (32.0-36.0); Mean Corpuscular Volume 88.5 fL (80.0-100.0); Mean Platelet Volume 10.9 fL (9.4-12.4); Platelet Count 191 K/uL (130-400); RDW Coefficient of Variation 14.9 % (11.5-14.5); RDW Standard Deviation 48.1 fL (36.4-46.3); Red Blood Count 4.71 M/uL (4.20-5.40); White Blood Count 14.17 K/ul (4.8-10.8)
[2023-09-07 08:08] LABS: BUN Creatinine Ratio 46.6 (10-20); Calcium 9.2 mg/dl (8.6-10.3); Creatinine Clr Calc Pharmacy 75.3 ml/min; Est GFR (African American) 100.9 ml/min; Est GFR (Non-African American) 87.1 ml/min; Magnesium 1.9 mg/dl (1.7-2.4); Potassium 4.4 mmol/L (3.5-5.1)
[2023-09-07 08:46] LABS: Basophils # (auto) 0.04 K/uL (0.00-0.20); Basophils % (auto) 0.3 %; Eosinophils # (auto) 0.36 K/uL (0.00-0.50); Eosinophils % (auto) 2.5 %; Immature Granulocytes # (auto) 0.05 K/uL (0.01-0.20); Immature Granulocytes % (auto) 0.4 %; Lymphocytes # (auto) 7.32 K/uL (1.20-3.40); Lymphocytes % (auto) 51.7 %; Monocytes # (auto) 0.72 K/uL (0.11-0.59); Monocytes % (auto) 5.1 %; Neutrophils # (auto) 5.68 K/uL (1.40-6.50); Smudge Cells Present
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
[2023-09-07] MEDS: PREGABALIN 50 MG CAP PO SCH (20:30)
[2023-09-07] MEDS: traMADol HCL 50 MG TABLET PO SCH (20:31)
[2023-09-07] MEDS: FLUTICASONE/VILANTEROL 100/25MCG 14 PUFFS/INHALER INH SCH (20:35)
[2023-09-08 06:34] LABS: BUN Creatinine Ratio 41.9 (10-20); Calcium 8.9 mg/dl (8.6-10.3); Creatinine Clr Calc Pharmacy 70.6 ml/min; Est GFR (African American) 98.7 ml/min; Est GFR (Non-African American) 85.2 ml/min; Potassium 4.3 mmol/L (3.5-5.1)
[2023-09-08 06:50] LABS: Ferritin 9.7 ng/ml (8-388)
[2023-09-08] MEDS: CYANOCOBALAMIN (B-12) 500 MCG TABLET PO SCH (08:19)
[2023-09-08] MEDS: cephALEXin 500 MG CAP PO SCH (08:19)
[2023-09-08] MEDS: FEXOFENADINE 60 MG TAB PO ONE (12:26)
[2023-09-08] MEDS: ACETAMINOPHEN 325 MG TAB PO PRN (12:29)
[2023-09-08] MEDS ORDERED: LIDOCAINE 2% JELLY 5 ML TUBE EXT PRN (13:41)
--- NOTE | 2023-09-08 15:07 | CT Scan Report ---
ABDOMEN AND PELVIS CT WITHOUT CONTRAST CT DOSE: 1226.67 mGy.cm HISTORY: Acute hematuria with right-sided flank pain gross hematuria, ?stone, other pathology? TECHNIQUE: Multiaxial CT images of the abdomen and pelvis were performed without contrast. A dose lo wering technique was utilized adhering to the principles of ALARA. COMPARISON STUDY: None. FINDINGS: Moderate coronary artery calcifications. Mild right hemidiaphragmatic elevation. Mild subse gmental bibasilar atelectasis. The study is degraded by respiratory motion artifact and upper extremi ty positioning. The unenhanced spleen, atrophic pancreas and adrenal glands are unremarkable. Cholecy stectomy with biliary ductal dilation. The common bile duct measures up to 1.3 cm. There is a conside rable amount of intrahepatic and extrahepatic pneumobilia. There is an 8 mm stone within the common b ile duct on image 117 series 3. There are a few subcentimeter indeterminate likely benign hypodensiti es within the liver. There is mild right-sided hydroureteronephrosis with urothelial thickening secondary to an obstructin g 8 mm calculus of the distal right ureter a few centimeters upstream to the ureterovesicular junctio n. There are a few nonobstructing calculi right kidney measuring up to 4 mm. Probable complex cyst of the left kidney measuring 9 mm. Pelvic floor relaxation. Urinary bladder wall thickening with partia l distention. Atherosclerosis of the aorta. No lymphadenopathy. No bowel obstruction or bowel wall thickening. Duodenal diverticulum. Colonic diverticulosis. Mild to moderate colonic fecal retention. Appendectomy. Diastases recti. Degenerative changes of the spine, pelvis and hips. Ill-defined sclerotic foci within the bilateral greater trochanters are indeterminat e however are likely benign based on symmetry. IMPRESSION: 1. Mild right-sided hydroureteronephrosis secondary to an obstructing 9 mm calculus of the distal rig ht ureter. 2. Right nephrolithiasis. 3. Cholecystectomy with pneumobilia, intrahepatic and extrahepatic biliary ductal dilation. Choledoch olithiasis also noted. Follow-up with GI recommended. 4. Colonic diverticulosis. 5. Additional findings as above. ACT 112: Negative or not required by law. The above report was generated using voice recognition software. It may contain grammatical, syntax o r spelling errors. Electronically signed by: Rakesh Pisano M.D. 09/08/2023 3:06 PM
[2023-09-08] MEDS: TRIAMCINOLONE ACET 0.1% CR 80 GM TUBE EXT SCH (16:02)
[2023-09-08] MEDS: NYSTATIN POWDER 15GM BTL EXT SCH (16:03)
--- NOTE | 2023-09-08 19:22 | Hospitalist Progress Note ---
Date of Service September 08, 2023 Assessment & Plan (1) Urinary tract obstruction by kidney stone: Plan: patient had presented to [facility] with gross hematuria and concerns for UTI. urine cx grew proteus. hematuria resolved with Rx of the UTI. daughter reported today her mother had prior kidney stones. in light of very mild abdominal pain (only with palpation) I obtained CT abd/pelvis. this showed an 8-9mm obstructing stone in the right distal ureter with mild hydronephrosis. I consulted [facility]; tentatively made NPO at [facility] for potential stenting tomorrow. I called and spoke with pt's daughter by phone; informed her about the stone and the possibility of needing a ureteral stent. Will make NPO at [facility] and urology to re-eval in am. (2) Choledocholithiasis: Plan: incidentally on CT a/p there appears to be a CBD stone. she does not have a gall bladder. recent LFTs earlier in the stay were wnl. plan to repeat in am. consider MRCP for confirmation of this finding. If MRCP were to be positive she would ultimately need ERCP for removal - and, unfortunately, ERCP is no longer available at [facility]. will need to d/w patient & her daughter this finding. cipro being used for UTI; add flagyl for anaerobic coverage. (3) Cognitive impairment: Plan: on MMSE today (skipped writing a sentence and drawing complex figures as pt is left-handed and can't use that arm due to prior CVA). pt's daughter suggested her mother is close to baseline today. consider repeat MMSE in a few days after #1 is taken care of, etc, as there still may be a component of acute delirium superimposed on top of her dementia. (4) COPD exacerbation: Plan: CXR wnl at time of admission. Respiratory BioFire panel negative. Was taking prednisone prior to admission and then switched to IV solumedrol upon arrival here. Steroids now off as of 09/04. Remains on scheduled albuterol qid. Cont mucinex BID. COPD flare resolved. (5) Chest pain: Plan: Resolved. Adamantly denies having had such at any point leading up to admission but well- documented by prior MDs. Either way it is resolved. EKG wnl. Troponins negative. No echo in our EMR. Likely was bronchospasm leading to chest tightness. (6) Dehydration: Plan: Present on admission by report - now resolved. IV fluids off. (7) History of deep venous thrombosis (DVT) of distal vein of right lower extremity: Plan: Noted. Typically on Eliquis 5mg BID. Was placed on hold at time of admission due to gross hematuria. Hematuria improved/resolved. Cont to hold Eliquis as she may need ureteral stenting due to her large right- sided ureteral kidney stone. Hemoglobin stable. (8) Hyperlipidemia: Plan: Continue Atorvastatin (9) Type 2 diabetes mellitus with diabetic polyneuropathy: Plan: Hgb A1c 6% on 08/26/23 Novolog SSI as needed BSGs well controlled at this time (10) Vascular dementia: Plan: MMSE today - see above Does have prior h/o stroke (I'm assuming right sided MCA territory stroke or right sided basal ganglia stroke given her motor findings) I do not have any brain imaging to look at B12 level in May 2023 was <350 -- start PO replacement Send B1 level TSH 1.3 in 2022 (11) Chronic pain: Plan: Pt describes neuropathic pain in feet Cont lyrica 50mg - change to TID dosing so it is not dosed in middle of the night or early am Increase tramadol from 50mg BID to 50mg TID (per PDMP has been on tramadol for several years - likely has tolerance) This dose increase should help Add lidocaine jelly prn to either foot (12) UTI (urinary tract infection): Plan: 2nd proteus previously on rocephin IV change to PO cipro to complete the course pt with CT confirmed obstructing stone on right - see above (13) Abnormal CBC: Plan: smudge cells, lymphocytosis, etc - 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 basal ganglia CVA? will need to check old records for prior imaging hold eliquis due to likely needing ureteral stenting cont statin Plan PT, OT to be of limited benefit - she is bed-bound, hemiplegic on left, lift- dependent lengthy bedside visit today while pt's daughter was present performed MMSE, discussed concerns for CLL, etc daughter hoping to bring patient home rather than placing her in SNF at discharge called daughter late this evening after CT a/p results were back and we discussed potential plan of care for the obstructing stone care d/w urology by [facility] and in person very complex care today -- total time spent on all care activities about 80 min Admission and Anticipated Discharge Date Admission Date: September 04, 2023 Subjective during the visit today the pt's daughter was present as well as Nikolay Bernstein from [employer] Ms Amandeep had asked that I assess Ms Oro's mental status to determine if she would have the capacity to read, understand, and complete a healthcare POA paper that her daughter requested be done while here MSSE completed - scored (last 2 items requiring drawing complex figures and a sentence skipped as patient is left handed and that LUE is paralyzed from prior stroke) she missed multiple items across multiple domains notably when asked the month she kept giving me a year also was unable to tell me the day of the week 3-word recall impaired serial 7's impaired and WORLD spelled backwards also impaired patient's only complaint is that of ongoing b/l foot pain - chronic also c/o abd pain only if I palpate her abdomen appetite is fair urine has cleared; no further hematuria daughter thinks her mother has had kidney stones in the past daughter herself has had stones Review of Systems Review of Systems: cv - no chest pain; daughter mentions 30 pounds of weight loss in the last year ? pulm - no dyspnea GI - no nausea/emesis Physical Exam Physical Exam: gen - NAD, lying in bed comfortably mouth - MMM neck - no JVD heart - RRR, s1 s2, no murmur lungs - CTA b/l abd - soft BS+; modestly distended; mildly tender to palpation epigastric region ("that hurts a little when you push") neuro - hemiplegia LUE/LLE ext - right leg is larger than left leg; considerable muscle atrophy noted of LUE/LLE; trace edema right leg, pulses 2+ b/l feet psych - MMSE as noted in subjective portion of the note skin - mild erythematous macular rash with occasional papule upper chest, left arm; torso spared; legs spared; not present on back Results & Data Results & Data Vital Signs (Past 12 Hours) Vital Signs Temp Pulse Pulse Resp BP Pulse Ox O2 Del Method 09/08/23 15:44 76 18 93 Room Air 09/08/23 14:58 36.6 C 84 16 120/62 91 Room Air 09/08/23 11:10 84 15 93 Room Air 09/08/23 08:00 Room Air 09/08/23 07:31 80 16 93 Room Air 09/08/23 07:28 36.9 C 79 20 129/66 96 Room Air Laboratory Results Laboratory Results - last 48 hr 09/05/23 09/07/23 09/07/23 05:34 07:10 07:54 WBC 14.17 H RBC 4.71 Hgb 13.4 Hct 41.7 MCV 88.5 MCH 28.5 MCHC 32.1 RDW Std Deviation 48.1 H RDW Coeff of Atilio 14.9 H Plt Count 191 MPV 10.9 Immature Gran % (Auto) 0.4 Neut % (Auto) 40.0 Lymph % (Auto) 51.7 Marshall % (Auto) 5.1 Eos % (Auto) 2.5 Baso % (Auto) 0.3 Neut # (Auto) 5.68 Lymph # (Auto) 7.32 H Marshall # (Auto) 0.72 H Eos # (Auto) 0.36 Baso # (Auto) 0.04 Immature Gran # (Auto) 0.05 Smudge Cells Present Sodium 138 Potassium 4.4 Chloride 102 Carbon Dioxide 30 Anion Gap 6 BUN 27 H Creatinine 0.58 L Est Cr Clr Drug Dosing 75.3 Est GFR ( Amer) 100.9 Est GFR (Non-Af Amer) 87.1 BUN/Creatinine Ratio 46.6 H Glucose 92 POC Glucose 92 Calcium 9.2 Magnesium 1.9 Iron TIBC Unsaturated IBC Transferrin % Sat Ferritin Folate Flow Cytometry Comment See Comment 09/07/23 09/07/23 09/07/23 11:44 16:54 19:59 WBC RBC Hgb Hct MCV MCH MCHC RDW Std Deviation RDW Coeff of Atilio Plt Count MPV Immature Gran % (Auto) Neut % (Auto) Lymph % (Auto) Marshall % (Auto) Eos % (Auto) Baso % (Auto) Neut # (Auto) Lymph # (Auto) Marshall # (Auto) Eos # (Auto) Baso # (Auto) Immature Gran # (Auto) Smudge Cells Sodium Potassium Chloride Carbon Dioxide Anion Gap BUN Creatinine Est Cr Clr Drug Dosing Est GFR ( Amer) Est GFR (Non-Af Amer) BUN/Creatinine Ratio Glucose POC Glucose 110 H 117 H 133 H Calcium Magnesium Iron TIBC Unsaturated IBC Transferrin % Sat Ferritin Folate Flow Cytometry Comment 09/08/23 09/08/23 09/08/23 05:52 07:58 11:27 WBC RBC Hgb Hct MCV MCH MCHC RDW Std Deviation RDW Coeff of Atilio Plt Count MPV Immature Gran % (Auto) Neut % (Auto) Lymph % (Auto) Marshall % (Auto) Eos % (Auto) Baso % (Auto) Neut # (Auto) Lymph # (Auto) Marshall # (Auto) Eos # (Auto) Baso # (Auto) Immature Gran # (Auto) Smudge Cells Sodium 137 Potassium 4.3 Chloride 103 Carbon Dioxide 27 Anion Gap 7 BUN 26 H Creatinine 0.62 Est Cr Clr Drug Dosing 70.6 Est GFR ( Amer) 98.7 Est GFR (Non-Af Amer) 85.2 BUN/Creatinine Ratio 41.9 H Glucose 158 H POC Glucose 113 H 105 H Calcium 8.9 Magnesium Iron 69 TIBC 348 Unsaturated IBC 279 Transferrin % Sat 20 Ferritin 9.7 Folate > 22.30 Flow Cytometry Comment Diagnostic Findings Abdomen/Pelvis CT 09/08/23 13:[address] WITHOUT CONTRAST CT DOSE: 1226.67 mGy.cm HISTORY: Acute hematuria with right-sided flank pain gross hematuria, ?stone, other pathology? TECHNIQUE: Multiaxial CT images of the abdomen and pelvis were performed without contrast. A dose lowering technique was utilized adhering to the principles of ALARA. COMPARISON STUDY: None. FINDINGS: Moderate coronary artery calcifications. Mild right hemidiaphragmatic elevation. Mild subsegmental bibasilar atelectasis. The study is degraded by respiratory motion artifact and upper extremity positioning. The unenhanced spleen, atrophic pancreas and adrenal glands are unremarkable. Cholecystectomy with biliary ductal dilation. The common bile duct measures up to 1.3 cm. There is a considerable amount of intrahepatic and extrahepatic pneumobilia. There is an 8 mm stone within the common bile duct on image 117 series 3. There are a few subcentimeter indeterminate likely benign hypodensities within the liver. There is mild right-sided hydroureteronephrosis with urothelial thickening secondary to an obstructing 8 mm calculus of the distal right ureter a few centimeters upstream to the ureterovesicular junction. There are a few nonobstructing calculi right kidney measuring up to 4 mm. Probable complex cyst of the left kidney measuring 9 mm. Pelvic floor relaxation. Urinary bladder wall thickening with partial distention. Atherosclerosis of the aorta. No lymphadenopathy. No bowel obstruction or bowel wall thickening. Duodenal diverticulum. Colonic diverticulosis. Mild to moderate colonic fecal retention. Appendectomy. Diastases recti. Degenerative changes of the spine, pelvis and hips. Ill-defined sclerotic foci within the bilateral greater trochanters are indeterminate however are likely benign based on symmetry. IMPRESSION: 1. Mild right-sided hydroureteronephrosis secondary to an obstructing 9 mm calculus of the distal right ureter. 2. Right nephrolithiasis. 3. Cholecystectomy with pneumobilia, intrahepatic and extrahepatic biliary ductal dilation. Choledocholithiasis also noted. Follow-up with GI recommended. 4. Colonic diverticulosis. 5. Additional findings as above. ACT 112: Negative or not required by law. The above report was generated using voice recognition software. It may contain grammatical, syntax or spelling errors. Electronically signed by: Rakesh Pisano M.D. 09/08/2023 3:06 PM PG Care Time/CCT Total # of Minutes Spent Total Time Spent with Patient: Total time spent is greater than 50% in coordination of care (as documented) at patient's floor/unit and/or counseling patient: Prolonged Care Time Prolonged Care Time: Yes Total Prolonged Care Time: 80 Coding Level of Care Code 65805 SUB INP/OBS CARE 3/50MIN (25 - SIGNIFICANT, SEPARATELY IDENTIFIABLE ) Diagnoses Urinary tract obstruction by kidney stone N20.0; N13.8 Choledocholithiasis K80.50 Cognitive impairment R41.89 COPD exacerbation J44.1 Chest pain R07.9 Dehydration E86.0 History of deep venous thrombosis (DVT) of distal vein of right lower extremity Z86.718 Hyperlipidemia E78.5 Type 2 diabetes mellitus with diabetic polyneuropathy E11.42 Vascular dementia F01.50 Chronic pain G89.29 UTI (urinary tract infection) N39.0 Abnormal CBC R79.89 History of CVA (cerebrovascular accident) Z86.73 Additional Codes Prolonged Care Time - Prolonged Care Time: Yes ([id number])
--- NOTE | 2023-09-08 20:03 | Urology Consultation ---
Date of Consultation September 08, 2023 Assessment & Plan (1) Nephrolithiasis: Patient has been admitted on the hospitalist service as previously noted. From a urologic perspective we recommend the following: Provide analgesics and antiemetics as needed. Provide gentle hydration as needed Consideration be given to adding Flomax for expulsive therapy The patient has been placed On antibiotics in the form of oral CiproI did discuss with the hospitalist service and they plan on broadening her antibiotic spectrum in light of her urine culture sensitivities and her findings of possible choledocholithiasis The hospital service is also that they plan on having a family discussion with the patient later this evening to determine how aggressive the family would like to be with the patient's care. I did discuss with the hospital service that due to the patient's choledocholithiasis they may wish to check patient's LFTs and also consult with gastroenterology to determine the best course of action. Again, this will be determined by how aggressive the family would like to be with the patient's care. If treatment of the patient's choledocholithiasis is opted for she will need to be transferred as we do not have ERCP services here. I will defer management of this condition to the hospitalist service. Would recommend empirically making the patient n.p.o. after midnight this evening in case they opt to consider ureteral stent placement At the present time the patient is normotensive without tachycardia or fever she also does not have evidence of acute kidney injury; I feel this this coupled with the fact that the patient ate her evening meal does not necessitate an urgent procedure is required this evening Additional recommendations be forthcoming based on her clinical course as it unfolds History of Present Illness Reason for Consultation: Nephrolithiasis Attending Physician: Soham Momin MD History of Present Illness This is an 82-year-old female who was admitted to the hospital on 09/04/2023. The patient has an underlying history of dementia which limits her historical capabilities. She does have numerous medical problems including history of stroke with some left-sided weakness, vascular dementia, history of DVT for which she takes Eliquis, and COPD. The patient did present to the emergency department on day of admission from the [facility] where patient reportedly complained of some chest pressure and shortness of breath. It was felt that the patient was suffering from a COPD exacerbation was therefore admitted to hospital for treatment of this. In addition the patient was noted to have an episode of gross hematuria. Earlier today the patient noted to the hospitalist attending to her care that she had some generalized abdominal pain and therefore further diagnostic evaluation was undertaken. Patient's most recent labs included a chemistry profile from today where sodium and potassium along with her creatinine were normal. Her BUN had a slight elevation at 26. She did undergo a chest x-ray on that showed no evidence of pneumonia. A CT scan of the abdomen pelvis was performed today that showed right sided hydronephrosis secondary to an obstructing 9 mm kidney stone in the distal right ureter. There is also evidence of previous cholecystectomy with intra and extrahepatic biliary ductal dilatation and concerns for choledocholithiasis. The patient's most recent CBC was from 09/07/2023 white blood cell count was elevated at 14.1. Hemoglobin and hematocrit along with the platelet count were normal. The patient's microbiology was reviewed and patient was noted to have a Proteus mirabilis urinary tract infection on 09/04/2023. This organism was resistant to Bactrim and quinolones. Because of patient's CT scan findings I was asked to see the patient for urology opinion. The patient, to the best of her knowledge has no history of kidney stones. She did not note any gross hematuria that was noted by the previous staff. She also denies any back or flank pain or any dysuria. At the time of my interview with the patient she did not appear to be in any distress and was resting comfortably in bed. I did discuss with the nurse attending to the patient and she has been noted to be afebrile and hemodynamically stable without hypotension or tachycardia. The patient's most recent oral intake was her evening meal this evening which was 09/08/2023. Allergies Allergy/AdvReac Type Severity Reaction Status Date / Time ibuprofen Allergy Unknown Unknown Unverified 09/04/23 17:30 Iodinated Contrast Media Allergy Unknown Unknown Unverified 09/04/23 17:30 iodine Allergy Unknown Unknown Unverified 09/04/23 17:30 metformin Allergy Unknown Unknown Unverified 09/04/23 17:30 naproxen Allergy Unknown Unknown Unverified 09/04/23 17:30 Penicillins Allergy Unknown Unknown Unverified 09/04/23 17:30 pregabalin Allergy Unknown Unknown Unverified 09/04/23 17:30 Home Medications Medication Instructions Recorded Confirmed Type acetaminophen 325 mg tablet 650 mg PO Q6 PRN mild pain scale 05/07/23 09/04/23 History 1-10 acetaminophen 325 mg tablet 650 mg PO Q6 PRN temp>101 05/07/23 09/04/23 History apixaban 5 mg tablet (Eliquis) 5 mg PO BID 05/07/23 09/04/23 History atorvastatin 10 mg tablet 10 mg PO DAILY 05/07/23 09/04/23 History citalopram 10 mg tablet 10 mg PO DAILY 05/07/23 09/04/23 History diclofenac sodium 1 % topical gel 1 ea topical TID 05/07/23 09/04/23 History ferrous sulfate 325 mg (65 mg 325 mg PO DAILY 09/04/23 09/04/23 History iron) tablet (FeroSul) guaifenesin 100 mg/5 mL oral liquid 200 mg PO Q4H PRN Cough 09/04/23 09/04/23 History ipratropium 0.5 mg-albuterol 3 mg 3 ml inhalation Q6 Shortness Of 09/04/23 09/04/23 History (2.5 mg base)/3 mL nebulization Breath Or Wheezing soln lorazepam 1 mg tablet 0.5 mg PO DAILY 09/04/23 09/04/23 History magnesium chloride 64 mg 128 mg PO DAILY 09/04/23 09/04/23 History (magnesium chloride) tablet melatonin 5 mg tablet 5 mg PO HS 09/04/23 09/04/23 History omeprazole 20 mg capsule,delayed 20 mg PO DAILY 09/04/23 09/04/23 History release polyethylene glycol 3350 17 gram 17 g PO BID 09/04/23 09/04/23 History oral powder packet (Miralax) prednisone 20 mg tablet 40 mg PO DAILY 09/04/23 09/04/23 History pregabalin 50 mg capsule 50 mg PO Q8 09/04/23 09/04/23 History tiotropium bromide 18 mcg capsule 2 cap inhalation DAILY 09/04/23 09/04/23 History with inhalation device (Spiriva with HandiHaler) tramadol 50 mg tablet 50 mg PO BID 09/04/23 09/04/23 History Patient History Medical History Chronic pain COVID-19 weaned off oxygen History of deep venous thrombosis (DVT) of distal vein of right lower extremity GERD (gastroesophageal reflux disease) Hyperlipidemia Insomnia Rheumatoid arthritis Type 2 diabetes mellitus with diabetic polyneuropathy Major depressive disorder Vascular dementia Constipation Anticoagulated History of CVA (cerebrovascular accident) Hypertension Diabetes Surgical History No pertinent past surgical history Social History Smoking Status: Never smoker Tobacco Type: Cigarettes Second Hand Exposure: No; Do You Dip or Chew Tobacco: No; Hx Alcohol Use: No Hx Substance Use: No Preferred Language: Frisian Communication Ability: Effective Black Top Roller Required: No Beliefs That Will Affect Care: None Current Living Situation: [facility] Current Living Situation Comment: [facility] Other Information That Helps Us Care for You: Yes ([facility]) Feels Safe at Home: No Is there a partner from a previous relationship who is making you feel unsafe now?: No Any Concerns about Your Family Situation: No Would You Like to Speak to Someone About Your Situation: Yes Safety Concerns: Afraid for Self Assistive Devices: Wheelchair Assistive Devices Comment: dentures and glasses at home Review of Systems Review of Systems: Other (Limited due to underlying history of dementia) Constitutional: no fever Gastrointestinal: + abdominal pain; no nausea and no vomit ing Genitourinary: as per Subjective / HPI Musculoskeletal: no back pain Physical Exam Constitutional: WD/WN, vitals as above Eyes: no conjunctival abnormality ENMT: Ears: no hearing impairment and no external ear abnormality Mouth: no oropharynx abnormality Neck: trachea midline Respiratory: normal respiratory effort; no respiratory distress and no labored breathing Cardiovascular: Rate/Rhythm: regular rate and regular rhythm Vessels: dorsalis pedis pulses present and radial pulses present Gastrointestinal (Abdomen): Abdomen has mild distention. Slight pain with palpation of the right upper quadrant was noted at the time my exam. There is no rebound tenderness or guarding Musculoskeletal: Feet are warm and well-perfused Skin: no rashes Neurologic: moves all extremities Genitourinary: No CVA tenderness noted at the time of my exam bilaterally with percussion Results & Data Vital Signs (Past 12 Hours) Vital Signs Temp Pulse Resp BP Pulse Ox O2 Del Method 09/08/23 15:44 76 18 93 Room Air 09/08/23 14:58 36.6 C 84 16 120/62 91 Room Air 09/08/23 11:10 84 15 93 Room Air 09/08/23 08:00 Room Air PG Care Time/CCT Total # of Minutes Spent Total Time Spent with Patient: Total time spent is greater than 50% in coordination of care (as documented) at patient's floor/unit and/or counseling patient: Coding Level of Care Code 22433 INT INP/OBS CARE 3/75MIN Diagnoses Nephrolithiasis N20.0
[2023-09-08] MEDS: FEXOFENADINE 60 MG TAB PO SCH (20:36)
[2023-09-08] MEDS: CIPROFLOXACIN 500 MG TAB PO SCH (20:36)
[2023-09-08] MEDS: metroNIDAZOLE 500 MG TAB PO SCH (21:46)
[2023-09-08] MEDS ORDERED: Nursing to Pharmacy Communication SCH (23:30)
[2023-09-09] MEDS: INSULIN ASPART PER UNIT CHARGE SC SCH ×2 (00:14→21:04)
[2023-09-09 08:17] LABS: Hematocrit (blood only) 39.5 % (37.0-47.0); Hemoglobin 12.7 g/dl (12.0-16.0); Mean Corpuscular Hemoglobin 28.6 pg (25.0-34.0); Mean Corpuscular Hgb Conc 32.2 g/dL (32.0-36.0); Mean Platelet Volume 10.6 fL (9.4-12.4); Platelet Count 173 K/uL (130-400); RDW Coefficient of Variation 14.9 % (11.5-14.5); Red Blood Count 4.44 M/uL (4.20-5.40); White Blood Count 11.92 K/ul (4.8-10.8)
[2023-09-09 08:28] LABS: Albumin Globulin Ratio 1.5 (0.9-2); Albumin Level 3.5 gm/dl (3.4-5.0); BUN Creatinine Ratio 35.5 (10-20); Bilirubin,Total 0.5 mg/dl (0.2-1.0); Calcium 8.9 mg/dl (8.6-10.3); Creatinine Clr Calc Pharmacy 70.7 ml/min; Est GFR (African American) 98.7 ml/min; Est GFR (Non-African American) 85.2 ml/min; Globulin 2.4 gm/dl (2.5-4.0); Potassium 4.3 mmol/L (3.5-5.1); Total Protein 5.9 gm/dl (6.0-8.3)
[2023-09-09 09:22] LABS: Basophils # (auto) 0.03 K/uL (0.00-0.20); Basophils % (auto) 0.3 %; Eosinophils # (auto) 0.55 K/uL (0.00-0.50); Eosinophils % (auto) 4.6 %; Immature Granulocytes # (auto) 0.06 K/uL (0.01-0.20); Immature Granulocytes % (auto) 0.5 %; Lymphocytes # (auto) 5.22 K/uL (1.20-3.40); Lymphocytes % (auto) 43.8 %; Monocytes # (auto) 0.67 K/uL (0.11-0.59); Monocytes % (auto) 5.6 %; Neutrophils # (auto) 5.39 K/uL (1.40-6.50); Neutrophils % (auto) 45.2 %; Smudge Cells Present
--- NOTE | 2023-09-09 11:18 | Urology Consultation ---
Date of Consultation September 09, 2023 Assessment & Plan (1) UTI (urinary tract infection): (2) Urinary tract obstruction by kidney stone: (3) Hydroureteronephrosis: Plan 82-year-old female with current UTI and 8 mm obstructing right ureteral stone with hydroureteronephrosis. Urology consulted for right ureteral stone with hydroureteronephrosis seen on CT on 09/08/2023. Vital signs stable and patient is afebrile Urine culture grew Proteus, patient switched to p.o. Cipro Blood cultures not completed Today she reports widespread abdominal pain, tender to palpitation Labs today-creatinine 0.62, WBC 11.92, hemoglobin 12.7 Recommend: Continue antibiotics per medical team She may require right ureteral stent placement if she clinically worsens including fevers, persistent flank pain, change in vital signs or labs Discussed possible right ureteral stent placement with patient if indicated and she verbalized understanding-this will likely be discussed with patient's daughter if intervention is waranted Patient also may be transferred to an outside facility for ERCP due to obstructing bile duct stone also seen on CT scan Recommend keep NPO for now until further decision is made Urology will follow Supervising Physician Co-Signing Physician Notes I have seen and discussed Ms. Oro's case with SCOTT Perez and agree with the above documentation. She remains hemodynamically stable, however appears to have an obstructing stone in the distal right ureter and some potential markers for urinary tract infection. We will tentatively plan for cystoscopy, right retrograde pyelogram and right ureteral stent placement to maintain maximal drainage of the right kidney. She is also going to have evaluation by GI for the pneumobilia and may require additional intervention for this finding. -Jesus Anderson MD. History of Present Illness Reason for Consultation: Ureteral stone, possible urinary tract infection Attending Physician: Soham Momin MD History of Present Illness 82-year-old female reported to the ER on 09/04/2023 due to chest pain and wheezing. Patient was found to have mild leukocytosis but cardiac workup was negative. Chest x-ray was negative for pneumonia. Patient was admitted for COPD exacerbation. Of note patient is bedbound with hemiplegia, left dependent. On arrival patient had gross hematuria with concerns for UTI and a urine culture was ordered. Urine culture grew Proteus Mirabilis orginally on Rocephin switch to p.o. Cipro Patient had very mild abdominal pain on 09/08/[address] abdomen pelvis was completed which indicated a 8 mm obstructing stone in the distal right ureter with mild hydronephrosis. Patient has a history of kidney stones. An obstructing stone was also found within the common bile duct. CT abdomen pelvis 09/08/2023 showed mild right-sided hydronephrosis with ureteral thickening secondary to an obstructing 8 mm calculi at the distal right ureter, a few centimeters upstream to the UVJ. There are few nonobstructing right calculi up to 4 mm. Probable complex cyst of the left kidney measuring 9 mm. Urinary bladder wall thickening with partial distention. Of note there is also an 8 mm stone within the common bile duct with considerable amount of intra haptic and extrahepatic pneumobilia. Labs reviewed: 09/09/2023 WBC is 11.90 Hemoglobin 12.7 Creatinine 0.62 Patient was examined at bedside, lying comfortably in bed. She is afebrile, vital signs stable. Pure- wick in place with dark yellow urine. She is complaining of abdominal pain. She is unaware that she had an obstructing kidney stone and/or bile stone. History of cholecystectomy several years ago. Daughter helps make medical decisions for patient. Complaining of feet pain in addition to abdominal pain. Other information hard to obtain from patient due to baseline mental status. Allergies Allergy/AdvReac Type Severity Reaction Status Date / Time ibuprofen Allergy Unknown Unknown Unverified 09/04/23 17:30 Iodinated Contrast Media Allergy Unknown Unknown Unverified 09/04/23 17:30 iodine Allergy Unknown Unknown Unverified 09/04/23 17:30 metformin Allergy Unknown Unknown Unverified 09/04/23 17:30 naproxen Allergy Unknown Unknown Unverified 09/04/23 17:30 Penicillins Allergy Unknown Unknown Unverified 09/04/23 17:30 pregabalin Allergy Unknown Unknown Unverified 09/04/23 17:30 Home Medications Medication Instructions Recorded Confirmed Type acetaminophen 325 mg tablet 650 mg PO Q6 PRN mild pain scale 05/07/23 09/04/23 History 1-10 acetaminophen 325 mg tablet 650 mg PO Q6 PRN temp>101 05/07/23 09/04/23 History apixaban 5 mg tablet (Eliquis) 5 mg PO BID 05/07/23 09/04/23 History atorvastatin 10 mg tablet 10 mg PO DAILY 05/07/23 09/04/23 History citalopram 10 mg tablet 10 mg PO DAILY 05/07/23 09/04/23 History diclofenac sodium 1 % topical gel 1 ea topical TID 05/07/23 09/04/23 History ferrous sulfate 325 mg (65 mg 325 mg PO DAILY 09/04/23 09/04/23 History iron) tablet (FeroSul) guaifenesin 100 mg/5 mL oral liquid 200 mg PO Q4H PRN Cough 09/04/23 09/04/23 History ipratropium 0.5 mg-albuterol 3 mg 3 ml inhalation Q6 Shortness Of 09/04/23 09/04/23 History (2.5 mg base)/3 mL nebulization Breath Or Wheezing soln lorazepam 1 mg tablet 0.5 mg PO DAILY 09/04/23 09/04/23 History magnesium chloride 64 mg 128 mg PO DAILY 09/04/23 09/04/23 History (magnesium chloride) tablet melatonin 5 mg tablet 5 mg PO HS 09/04/23 09/04/23 History omeprazole 20 mg capsule,delayed 20 mg PO DAILY 09/04/23 09/04/23 History release polyethylene glycol 3350 17 gram 17 g PO BID 09/04/23 09/04/23 History oral powder packet (Miralax) prednisone 20 mg tablet 40 mg PO DAILY 09/04/23 09/04/23 History pregabalin 50 mg capsule 50 mg PO Q8 09/04/23 09/04/23 History tiotropium bromide 18 mcg capsule 2 cap inhalation DAILY 09/04/23 09/04/23 History with inhalation device (Spiriva with HandiHaler) tramadol 50 mg tablet 50 mg PO BID 09/04/23 09/04/23 History Patient History Medical History Chronic pain COVID-19 weaned off oxygen History of deep venous thrombosis (DVT) of distal vein of right lower extremity GERD (gastroesophageal reflux disease) Hyperlipidemia Insomnia Rheumatoid arthritis Type 2 diabetes mellitus with diabetic polyneuropathy Major depressive disorder Vascular dementia Constipation Anticoagulated History of CVA (cerebrovascular accident) Hypertension Diabetes Surgical History No pertinent past surgical history Social History Smoking Status: Never smoker Tobacco Type: Cigarettes Second Hand Exposure: No; Do You Dip or Chew Tobacco: No; Hx Alcohol Use: No Hx Substance Use: No Preferred Language: Urdu Communication Ability: Effective Manager Of Financial Required: No Beliefs That Will Affect Care: None [facility] Current [facility] Situation Comment: [facility] Other Information That Helps Us Care for You: Yes (refusing to go back to [facility] d/t care recieved there) Feels Safe at Home: No Is there a partner from a previous relationship who is making you feel unsafe now?: No Any Concerns about Your Family Situation: No Would You Like to Speak to Someone About Your Situation: Yes Safety Concerns: Afraid for Self Assistive Devices: Wheelchair Assistive Devices Comment: dentures and glasses at home Review of Systems Constitutional: as per Subjective / HPI Genitourinary: as per Subjective / HPI Physical Exam Constitutional: well developed and well nourished; no acute distress Eyes: + anicteric sclerae; pupils not irregula r Respiratory: normal respiratory effort; no respiratory distress, does not use accessory muscles and normal respiratory pattern Cardiovascular: well perfused Gastrointestinal (Abdomen): Inspection/Auscultation: abdomen normal to inspection Percussion/Palpation: + abdomen tender Musculoskeletal: Extremities: extremities normal to inspection Neurologic: awake and + confused Psychiatric: Orientation: alert and oriented to person Eye Contact: good eye contact Genitourinary: Javier wick draining yellow urine Results & Data Vital Signs (Past 12 Hours) Vital Signs Temp Pulse Resp BP Pulse Ox O2 Del Method 09/09/23 10:13 82 16 95 Room Air 09/09/23 08:59 36.8 C 87 14 110/58 L 92 Room Air 09/09/23 07:18 80 18 94 Room Air PG Care Time/CCT Total # of Minutes Spent Total Time Spent with Patient: Total time spent is greater than 50% in coordination of care (as documented) at patient's floor/unit and/or counseling patient: Coding Level of Care Code 67029 INT INP/OBS CARE 2/55MIN Diagnoses Urinary tract infection with hematuria, site unspecified N39.0; R31.9 Hematuria presence: with hematuria Urinary tract infection type: site unspecified Urinary tract obstruction by kidney stone N20.0; N13.8 Hydroureteronephrosis N13.30 (1) UTI (urinary tract infection) Hematuria presence: with hematuria Urinary tract infection type: site unspecified Qualified Code(s): N39.0 - Urinary tract infection, site not specified; R31.9 - Hematuria, unspecified
--- NOTE | 2023-09-09 12:49 | Hospitalist Progress Note ---
Date of Service September 09, 2023 Assessment & Plan (1) Urinary tract obstruction by kidney stone: Plan: patient had presented to [facility] with gross hematuria and concerns for UTI as well as COPD flare. urine cx grew proteus. hematuria resolved with Rx of the UTI. in light of very mild abdominal pain CT abd/pelvis obtained. this showed an 8-9mm obstructing stone in the right distal ureter with mild hydronephrosis. consulted [facility] - plan is for cystoscopy with stent placement today. in addition to the right sided stone there was an incidental finding of a CBD stone and pneumobilia. I spoke with the pt's daughter and she is aware of plan for the kidney stone today. She also reports that her mother had her gall bladder out at [facility] in the last 2-3 years. She does think her mother had ERCP. Will attempt to get those records. To ensure that current symptoms are not from the CBD stone I asked Dr Adan from GI to see in consult. CBD stone felt to be incidental/chronic finding. No upper GI symptoms, LFTs wnl, etc. This can be worked up with EUS/ERCP as outpatient. (2) Choledocholithiasis: Plan: incidentally on CT a/p there appears to be a CBD stone. she does not have a gall bladder. recent LFTs earlier in the stay were wnl. LFTs again today wnl. daughter made aware of not only the kidney stone but the suspected CBD stone - see #1 above. cipro being used for UTI; added flagyl for anaerobic coverage to cover the bile duct but likely can be d/c. if any clinical worsening - RUQ pain, rise in LFTs, etc - then MRCP. (3) Cognitive impairment: Plan: on MMSE (skipped writing a sentence and drawing complex figures as pt is left-handed and can't use that arm due to prior CVA). pt's daughter suggested her mother is close to baseline at this time. consider repeat MMSE in a few days after #1 is taken care of, etc, as there still may be a component of acute delirium superimposed on top of her dementia. (4) COPD exacerbation: Plan: resolved. CXR wnl at time of admission. Respiratory BioFire panel negative. Was taking prednisone prior to admission and then switched to IV solumedrol upon arrival here. Steroids now off as of 09/04. Remains on scheduled albuterol qid. Cont mucinex BID. (5) Chest pain: Plan: Resolved. Adamantly denies having had such at any point leading up to admission but well- documented by prior MDs. Either way it is resolved. EKG wnl. Troponins negative. No echo in our EMR. Likely was bronchospasm leading to chest tightness. (6) Dehydration: Plan: Present on admission by report - now resolved. IV fluids restarted while NPO. (7) History of deep venous thrombosis (DVT) of distal vein of right lower extremity: Plan: Noted. Typically on Eliquis 5mg BID. Was placed on hold at time of admission due to gross hematuria. Hematuria improved/resolved. Cont to hold Eliquis due to need for ureteral stenting today. Resume Eliquis when ok with Urology. (8) Hyperlipidemia: Plan: Continue Atorvastatin LFTs wnl (9) Type 2 diabetes mellitus with diabetic polyneuropathy: Plan: Hgb A1c 6% on 08/26/23 Novolog SSI as needed BSGs well controlled at this time (10) Vascular dementia: Plan: MMSE today - see above Does have prior h/o stroke (I'm assuming right sided MCA territory stroke or right sided basal ganglia stroke given her motor findings) I do not have any brain imaging to look at B12 level in May 2023 was <350 -- start PO replacement Send B1 level TSH 1.3 in 2022 (11) Chronic pain: Plan: Pt describes neuropathic pain in feet Cont lyrica 50mg - change to TID dosing so it is not dosed in middle of the night or early am Increase tramadol from 50mg BID to 50mg TID (per PDMP has been on tramadol for several years - likely has tolerance) This dose increase should help Add lidocaine jelly prn to either foot (12) UTI (urinary tract infection): Plan: 2nd proteus previously on rocephin IV changed to PO cipro to complete the course pt with CT confirmed obstructing stone on right - see above in #1 (13) Abnormal CBC: Plan: smudge cells, lymphocytosis, etc - 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 basal ganglia CVA? stroke occurred while living in [place] - those records are not available hold eliquis due to needing ureteral stenting cont statin Plan PT, OT to be of limited benefit - she is bed-bound, hemiplegic on left, lift- dependent care d/w [facility] care d/w [facility] GI care d/w pt's daughter by phone extensively Admission and Anticipated Discharge Date Admission Date: September 04, 2023 Subjective patient NPO this am for possible cystoscopy with stent placement she asked when she could eat - voiced she was hungry we talked a bit about the possible cystoscopy and multiple times she said "I'm scared" asked same questions over and over denied abdominal pain this am denied dyspnea denied any nausea we discussed why we would be doing the stent placement for the right sided kidney stone Review of Systems Review of Systems: CV - no chest pain pulm - no dyspnea or cough GI - no vomiting - "I can't pee" she kept repeating but the purewick was working fine Physical Exam Physical Exam: gen - NAD, lying in bed comfortably mouth - MMM neck - no JVD heart - RRR, s1 s2, no murmur lungs - CTA b/l abd - soft BS+; mildly tender to palpation right abdomen - RLQ; no RUQ or epigastric pain; no peritoneal signs; nondistended neuro - hemiplegia LUE/LLE ext - right leg is larger than left leg; muscle atrophy noted of LUE/LLE; trace edema right leg, pulses 2+ b/l feet skin - mild erythematous macular rash with occasional papule upper chest, left arm improved today psych - a/o to person and place Results & Data Results & Data Vital Signs (Past 12 Hours) Vital Signs Temp Pulse Resp BP Pulse Ox O2 Del Method 09/09/23 10:13 82 16 95 Room Air 09/09/23 08:59 36.8 C 87 14 110/58 L 92 Room Air 09/09/23 07:18 80 18 94 Room Air Laboratory Results Laboratory Results - last 24 hr 09/05/23 09/08/23 09/08/23 05:34 16:32 20:32 WBC RBC Hgb Hct MCV MCH MCHC RDW Std Deviation RDW Coeff of Atilio Plt Count MPV Immature Gran % (Auto) Neut % (Auto) Lymph % (Auto) Stewart % (Auto) Eos % (Auto) Baso % (Auto) Neut # (Auto) Lymph # (Auto) Stewart # (Auto) Eos # (Auto) Baso # (Auto) Immature Gran # (Auto) Smudge Cells Sodium Potassium Chloride Carbon Dioxide Anion Gap BUN Creatinine Est Cr Clr Drug Dosing Est GFR ( Amer) Est GFR (Non-Af Amer) BUN/Creatinine Ratio Glucose POC Glucose 103 H 109 H Calcium Total Bilirubin AST ALT Alkaline Phosphatase Total Protein Albumin Globulin Albumin/Globulin Ratio Flow Cytometry Comment See Comment 09/09/23 09/09/23 09/09/23 00:11 06:09 07:49 WBC 11.92 H RBC 4.44 Hgb 12.7 Hct 39.5 MCV 89.0 MCH 28.6 MCHC 32.2 RDW Std Deviation 49.0 H RDW Coeff of Atilio 14.9 H Plt Count 173 MPV 10.6 Immature Gran % (Auto) 0.5 Neut % (Auto) 45.2 Lymph % (Auto) 43.8 Stewart % (Auto) 5.6 Eos % (Auto) 4.6 Baso % (Auto) 0.3 Neut # (Auto) 5.39 Lymph # (Auto) 5.22 H Stewart # (Auto) 0.67 H Eos # (Auto) 0.55 H Baso # (Auto) 0.03 Immature Gran # (Auto) 0.06 Smudge Cells Present Sodium 139 Potassium 4.3 Chloride 105 Carbon Dioxide 29 Anion Gap 5 BUN 22 Creatinine 0.62 Est Cr Clr Drug Dosing 70.7 Est GFR ( Amer) 98.7 Est GFR (Non-Af Amer) 85.2 BUN/Creatinine Ratio 35.5 H Glucose 98 POC Glucose 110 H 93 Calcium 8.9 Total Bilirubin 0.5 AST 19 ALT 28 Alkaline Phosphatase 105 H Total Protein 5.9 L Albumin 3.5 Globulin 2.4 L Albumin/Globulin Ratio 1.5 Flow Cytometry Comment 09/09/23 12:05 WBC RBC Hgb Hct MCV MCH MCHC RDW Std Deviation RDW Coeff of Atilio Plt Count MPV Immature Gran % (Auto) Neut % (Auto) Lymph % (Auto) Stewart % (Auto) Eos % (Auto) Baso % (Auto) Neut # (Auto) Lymph # (Auto) Stewart # (Auto) Eos # (Auto) Baso # (Auto) Immature Gran # (Auto) Smudge Cells Sodium Potassium Chloride Carbon Dioxide Anion Gap BUN Creatinine Est Cr Clr Drug Dosing Est GFR ( Amer) Est GFR (Non-Af Amer) BUN/Creatinine Ratio Glucose POC Glucose 96 Calcium Total Bilirubin AST ALT Alkaline Phosphatase Total Protein Albumin Globulin Albumin/Globulin Ratio Flow Cytometry Comment PG Care Time/CCT Total # of Minutes Spent Total Time Spent with Patient: Total time spent is greater than 50% in coordination of care (as documented) at patient's floor/unit and/or counseling patient: Coding Level of Care Code 34455 SUB INP/OBS CARE 350MIN Diagnoses Urinary tract obstruction by kidney stone N20.0; N13.8 Choledocholithiasis K80.50 Cognitive impairment R41.89 COPD exacerbation J44.1 Chest pain R07.9 Dehydration E86.0 History of deep venous thrombosis (DVT) of distal vein of right lower extremity Z86.718 Hyperlipidemia E78.5 Type 2 diabetes mellitus with diabetic polyneuropathy E11.42 Vascular dementia F01.50 Chronic pain G89.29 Urinary tract infection with hematuria, site unspecified N39.0; R31.9 Hematuria presence: with hematuria Urinary tract infection type: site unspecified Abnormal CBC R79.89 History of CVA (cerebrovascular accident) Z86.73 (12) UTI (urinary tract infection) Hematuria presence: with hematuria Urinary tract infection type: site unspecified Qualified Code(s): N39.0 - Urinary tract infection, site not specified; R31.9 - Hematuria, unspecified
--- NOTE | 2023-09-09 13:27 | Gastrointestinal Consultation ---
Date of Consultation September 09, 2023 Assessment & Plan (1) Bile duct abnormality: Continue to monitor temp, CBC, CMP. In the absence of biliary/RUQ pain symptoms, fever, jaundice, or LFT abnormalities would advise outpatient EUS/ERCP for further management. If acute clinical concern for cholangitis develops, would need transfer for these biliary services not available at [facility]. Supervising Physician Co-Signing Physician Notes Agree with LUDWIN Philip as above Interviewed and examined patient and agree with above Abd: Soft, NT, ND, +BS Continue current therapy and supportive care Check CMP in the AM Recommend outpatient EUS/ERCP for further workup History of Present Illness Reason for Consultation: CBD stone Attending Physician: Soham Momin MD History of Present Illness Patient is an 82 yo female with multiple medical comorbidities who is hospitalized due to flank pain and hematuria. She has dementia. She had a CT scan that identified R sided hydronephrosis with a 9 mm calculi of the distal right ureter. The patient also was noted to have biliary ductal dilatation with CBD of 1.3 cm. She was noted to have intrahepatic and extrahepatic pneumobilia. She is s/p cholecystectomy. No reported RUQ pain, jaundice. R flank pain and h ematuria seem to be the most notable symptoms reported, but patient's dementia limits her history. WBC count 11,920. Patient is afebrile. AST 19, ALT 28, T bili 0.5. Allergies Allergy/AdvReac Type Severity Reaction Status Date / Time ibuprofen Allergy Unknown Unknown Unverified 09/04/23 17:30 Iodinated Contrast Media Allergy Unknown Unknown Unverified 09/04/23 17:30 iodine Allergy Unknown Unknown Unverified 09/04/23 17:30 metformin Allergy Unknown Unknown Unverified 09/04/23 17:30 naproxen Allergy Unknown Unknown Unverified 09/04/23 17:30 Penicillins Allergy Unknown Unknown Unverified 09/04/23 17:30 pregabalin Allergy Unknown Unknown Unverified 09/04/23 17:30 Home Medications Medication Instructions Recorded Confirmed Type acetaminophen 325 mg tablet 650 mg PO Q6 PRN mild pain scale 05/07/23 09/04/23 History 1-10 acetaminophen 325 mg tablet 650 mg PO Q6 PRN temp>101 05/07/23 09/04/23 History apixaban 5 mg tablet (Eliquis) 5 mg PO BID 05/07/23 09/04/23 History atorvastatin 10 mg tablet 10 mg PO DAILY 05/07/23 09/04/23 History citalopram 10 mg tablet 10 mg PO DAILY 05/07/23 09/04/23 History diclofenac sodium 1 % topical gel 1 ea topical TID 05/07/23 09/04/23 History ferrous sulfate 325 mg (65 mg 325 mg PO DAILY 09/04/23 09/04/23 History iron) tablet (FeroSul) guaifenesin 100 mg/5 mL oral liquid 200 mg PO Q4H PRN Cough 09/04/23 09/04/23 History ipratropium 0.5 mg-albuterol 3 mg 3 ml inhalation Q6 Shortness Of 09/04/23 09/04/23 History (2.5 mg base)/3 mL nebulization Breath Or Wheezing soln lorazepam 1 mg tablet 0.5 mg PO DAILY 09/04/23 09/04/23 History magnesium chloride 64 mg 128 mg PO DAILY 09/04/23 09/04/23 History (magnesium chloride) tablet melatonin 5 mg tablet 5 mg PO HS 09/04/23 09/04/23 History omeprazole 20 mg capsule,delayed 20 mg PO DAILY 09/04/23 09/04/23 History release polyethylene glycol 3350 17 gram 17 g PO BID 09/04/23 09/04/23 History oral powder packet (Miralax) prednisone 20 mg tablet 40 mg PO DAILY 09/04/23 09/04/23 History pregabalin 50 mg capsule 50 mg PO Q8 09/04/23 09/04/23 History tiotropium bromide 18 mcg capsule 2 cap inhalation DAILY 09/04/23 09/04/23 History with inhalation device (Spiriva with HandiHaler) tramadol 50 mg tablet 50 mg PO BID 09/04/23 09/04/23 History Patient History Medical History Chronic pain COVID-19 weaned off oxygen History of deep venous thrombosis (DVT) of distal vein of right lower extremity GERD (gastroesophageal reflux disease) Hyperlipidemia Insomnia Rheumatoid arthritis Type 2 diabetes mellitus with diabetic polyneuropathy Major depressive disorder Vascular dementia Constipation Anticoagulated History of CVA (cerebrovascular accident) Hypertension Diabetes Surgical History No pertinent past surgical history Social History Smoking Status: Never smoker Tobacco Type: Cigarettes Second Hand Exposure: No; Do You Dip or Chew Tobacco: No; Hx Alcohol Use: No Hx Substance Use: No Preferred Language: Gibraltarian Communication Ability: Effective Senior Applications Architect Required: No Beliefs That Will Affect Care: None Current Living Situation: Group Home Current Living Situation Comment: [facility] Other Information That Helps Us Care for You: Yes (refusing to go back to [facility] d/t care recieved there) Feels Safe at Home: No Is there a partner from a previous relationship who is making you feel unsafe now?: No Any Concerns about Your Family Situation: No Would You Like to Speak to Someone About Your Situation: Yes Safety Concerns: Afraid for Self Assistive Devices: Wheelchair Assistive Devices Comment: dentures and glasses at home Review of Systems Review of Systems: Unobtainable due to cognitive status Physical Exam Skin: no jaundice Results & Data Vital Signs (Past 12 Hours) Vital Signs Temp Pulse Resp BP Pulse Ox O2 Del Method 09/09/23 10:13 82 16 95 Room Air 09/09/23 08:59 36.8 C 87 14 110/58 L 92 Room Air 09/09/23 07:18 80 18 94 Room Air PG Care Time/CCT Total # of Minutes Spent Total Time Spent with Patient: Total time spent is greater than 50% in coordination of care (as documented) at patient's floor/unit and/or counseling patient: Coding Level of Care Code 82909 INT INP/OBS CARE 2/55MIN Diagnoses Bile duct abnormality K83.9
[2023-09-09] MEDS: D5W AND NSS 1,000 ML IV SCH (13:30)
[2023-09-09] MEDS ORDERED: fentaNYL citrate PF 100 MCG/2 ML VIAL ONE (16:34)
[2023-09-09] MEDS ORDERED: ONDANSETRON INJ 2 MG/ML 2 ML VIAL ONE (16:36)
[2023-09-09] MEDS ORDERED: LIDOCAINE 2% 2 ML VIAL/AMP(20MG/ML) INFIL ONE (16:36)
[2023-09-09] MEDS ORDERED: DEXAMETHASONE SOD INJ 4 MG/ML VIAL ONE (16:36)
[2023-09-09] MEDS ORDERED: PROPOFOL IV EMULSION 10 MG/ML 20 ML VIAL IV ONE (16:36)
--- NOTE | 2023-09-09 16:44 | Anesthesiology Consultation ---
Date of Service September 09, 2023 Assessment & Plan Chart Review Chart Review: Acceptable Risk for Surgery and Patient NOT seen in Pre Admission Testing Consults Requested none ASA ASA4 Proposed Anesthesia Anesthesia Type: MAC History Surgery Operation Date: 09/09/23 11:25 Proposed Procedures p Cystoscopy, Retrograde Pyelogram, Right Ureteral Stent Placement - Jesus Anderson MD Height/Weight Height: 5 ft 4.5 in Weight: 70.9 kg Allergies Allergy/AdvReac Type Severity Reaction Status Date / Time ibuprofen Allergy Unknown Unknown Unverified 09/04/23 17:30 Iodinated Contrast Media Allergy Unknown Unknown Unverified 09/04/23 17:30 iodine Allergy Unknown Unknown Unverified 09/04/23 17:30 metformin Allergy Unknown Unknown Unverified 09/04/23 17:30 naproxen Allergy Unknown Unknown Unverified 09/04/23 17:30 Penicillins Allergy Unknown Unknown Unverified 09/04/23 17:30 pregabalin Allergy Unknown Unknown Unverified 09/04/23 17:30 Medications Home Medications Medication Instructions Recorded Confirmed Last Taken acetaminophen 325 mg tablet 650 mg PO Q6 PRN mild pain scale 05/07/23 09/04/23 Unknown 1-10 acetaminophen 325 mg tablet 650 mg PO Q6 PRN temp>101 05/07/23 09/04/23 Unknown apixaban 5 mg tablet (Eliquis) 5 mg PO BID 05/07/23 09/04/23 Unknown atorvastatin 10 mg tablet 10 mg PO DAILY 05/07/23 09/04/23 Unknown citalopram 10 mg tablet 10 mg PO DAILY 05/07/23 09/04/23 Unknown diclofenac sodium 1 % topical gel 1 ea topical TID 05/07/23 09/04/23 Unknown ferrous sulfate 325 mg (65 mg 325 mg PO DAILY 09/04/23 09/04/23 Unknown iron) tablet (FeroSul) guaifenesin 100 mg/5 mL oral liquid 200 mg PO Q4H PRN Cough 09/04/23 09/04/23 Unknown ipratropium 0.5 mg-albuterol 3 mg 3 ml inhalation Q6 Shortness Of 09/04/23 09/04/23 Unknown (2.5 mg base)/3 mL nebulization Breath Or Wheezing soln lorazepam 1 mg tablet 0.5 mg PO DAILY 09/04/23 09/04/23 Unknown magnesium chloride 64 mg 128 mg PO DAILY 09/04/23 09/04/23 Unknown (magnesium chloride) tablet melatonin 5 mg tablet 5 mg PO HS 09/04/23 09/04/23 Unknown omeprazole 20 mg capsule,delayed 20 mg PO DAILY 09/04/23 09/04/23 Unknown release polyethylene glycol 3350 17 gram 17 g PO BID 09/04/23 09/04/23 Unknown oral powder packet (Miralax) prednisone 20 mg tablet 40 mg PO DAILY 09/04/23 09/04/23 Unknown pregabalin 50 mg capsule 50 mg PO Q8 09/04/23 09/04/23 Unknown tiotropium bromide 18 mcg capsule 2 cap inhalation DAILY 09/04/23 09/04/23 Unknown with inhalation device (Spiriva with HandiHaler) tramadol 50 mg tablet 50 mg PO BID 09/04/23 09/04/23 Unknown Active Medications Generic Name Dose Route Start Last Admin Trade Name Freq PRN Reason Stop Dose Admin Acetaminophen 650 mg 09/04/23 18:21 09/08/23 12:29 Acetaminophen 325 Mg Tab PO 10/04/23 18:29 650 mg Q6H PRN Administration pain(1-4),headache,fever Albuterol 3 ml 09/04/23 19:00 09/09/23 14:10 Albut/Ipratrop 3mg/0.5mg Neb 3 Ml Vial NEB 10/04/23 18:59 3 ml QIDR DAWNA Administration Protocol Apixaban 5 mg 09/04/23 21:19 09/06/23 08:26 Apixaban 5 Mg Tablet PO 10/04/23 21:18 5 mg BID DAWNA Administration Atorvastatin Calcium 10 mg 09/05/23 09:00 09/09/23 10:19 Atorvastatin 10 Mg Tab PO 10/05/23 08:59 10 mg DAILY DAWNA Administration Ciprofloxacin 500 mg 09/08/23 21:00 09/09/23 10:24 Ciprofloxacin 500 Mg Tab PO 09/18/23 20:59 500 mg BID DAWNA Administration Protocol Citalopram Hydrobromide 10 mg 09/05/23 09:00 09/09/23 10:21 Citalopram 20 Mg Tab PO 10/05/23 08:59 10 mg DAILY DAWNA Administration Cyanocobalamin 1,000 mcg 09/08/23 09:00 09/09/23 10:23 Cyanocobalamin (B-12) 500 Mcg Tablet PO 10/08/23 08:59 1,000 mcg QAM DAWNA Administration Ferrous Sulfate 325 mg 09/05/23 09:00 09/09/23 10:21 Ferrous Sulfate 325 Mg Tab PO 10/05/23 08:59 325 mg DAILY DAWNA Administration Fexofenadine HCl 60 mg 09/08/23 21:00 09/09/23 10:18 Fexofenadine 60 Mg Tab PO 10/08/23 20:59 60 mg BID DAWNA Administration Fluticasone/Vilanterol 1 puffs 09/07/23 18:30 09/09/23 10:26 Fluticasone/Vilanterol 100/25mcg 14 Puffs/Inhaler INH 10/07/23 18:29 1 puffs DAILY DAWNA Administration Guaifenesin 600 mg 09/04/23 21:00 09/09/23 10:21 Guaifenesin 600 Mg Tabcr PO 10/04/23 20:59 600 mg Q12 DAWNA Administration Dextrose/Sodium Chloride 1,000 mls @ 75 mls/hr 09/09/23 13:00 09/09/23 13:30 D5w And Nss IV 10/09/23 12:59 75 mls/hr .[id number] DAWNA Administration Insulin Aspart 0 units 09/09/23 00:00 09/09/23 12:10 Insulin Aspart Per Unit Charge SC 10/09/23 00:00 Not Given Q6 DAWNA Lorazepam 0.5 mg 09/05/23 09:00 09/09/23 10:38 Lorazepam 0.5 Mg Tab PO 10/05/23 08:59 0.5 mg DAILY DAWNA Administration Magnesium Chloride 128 mg 09/05/23 09:00 09/09/23 10:17 Magnesium Chloride W/Calcium 64mg Delayed Rel Tab PO 10/05/23 08:59 128 mg DAILY DAWNA Administration Melatonin 4.5 mg 09/04/23 21:19 09/08/23 20:36 Melatonin 3 Mg Tab PO 10/04/23 21:18 4.5 mg HS DAWNA Administration Metronidazole 500 mg 09/08/23 21:00 09/09/23 10:18 Metronidazole 500 Mg Tab PO 09/18/23 20:59 500 mg BID DAWNA Administration Protocol Nystatin 1 appln 09/08/23 14:00 09/09/23 13:35 Nystatin Powder 15gm Btl EXT 10/08/23 13:59 1 appln TID DAWNA Administration Pantoprazole Sodium 40 mg 09/05/23 09:00 09/09/23 10:22 Pantoprazole 40 Mg Tab PO 10/05/23 08:59 40 mg DAILY DAWNA Administration Polyethylene Glycol 17 gm 09/04/23 21:19 09/09/23 10:25 Polyethylene (Miralax) 17 Gm Pack PO 10/04/23 21:18 Not Given BID DAWNA Pregabalin 50 mg 09/07/23 21:00 09/09/23 13:35 Pregabalin 50 Mg Cap PO 10/07/23 20:59 50 mg TID DAWNA Administration Tramadol HCl 50 mg 09/07/23 21:00 09/09/23 13:35 Tramadol Hcl 50 Mg Tablet PO 10/07/23 20:59 50 mg TID DAWNA Administration Triamcinolone Acetonide 1 appln 09/08/23 14:00 09/09/23 13:35 Triamcinolone Acet 0.1% Cr 80 Gm Tube EXT 10/08/23 13:59 1 appln TID DAWNA Administration Umeclidinium [place] 1 puffs 09/05/23 09:00 09/09/23 10:25 Umeclidinium [place] 62.5mcg/Blister 7 Puffs/Inhaler INH 10/05/23 08:59 1 puffs DAILY DAWNA Administration Past Medical History Medical History Chronic pain COVID-19 weaned off oxygen History of deep venous thrombosis (DVT) of distal vein of right lower extremity GERD (gastroesophageal reflux disease) Hyperlipidemia Insomnia Rheumatoid arthritis Type 2 diabetes mellitus with diabetic polyneuropathy Major depressive disorder Vascular dementia Constipation Anticoagulated History of CVA (cerebrovascular accident) Hypertension Diabetes ASCVD Aorta Exercise / Class Metabolic Activity III < 4 Walking/Shop/Light housework Past Surgical History Surgical History No pertinent past surgical history Past Anesthesia History No Hx of Anesthesia Complications and No Family Hx of Anesthesia Complications History of PONV No Hx of PONV and No Hx of Motion Sickness Social History Smoking Status: Never smoker Do You Dip or Chew Tobacco: No Hx Alcohol Use: No Hx Substance Use: No substance use type: does not use Physical Exam Vital Signs Last Vital Signs Temp 36.9 C 09/09/23 15:41 Pulse 86 09/09/23 15:41 Resp 16 09/09/23 15:41 BP 126/71 09/09/23 15:41 Pulse Ox 90 09/09/23 15:41 O2 Del Method Room Air 09/09/23 15:41 FiO2 21 09/07/23 07:55 Testing Laboratory Results 09/09/23 07:49 09/09/23 07:49 PT 11.9 Seconds (9.0-12.0) 09/05/23 05:34 INR 1.1 (0.9-1.1) 09/05/23 05:34 Urine Color Yellow 09/04/23 Unknown Urine Appearance Turbid (Clear) A 09/04/23 Unknown Urine pH >= 9.0 (4.5-7.5) H 09/04/23 Unknown Ur Specific [place] 1.038 (1.000-1.030) H 09/04/23 Unknown Urine Protein 2+ (Negative) H 09/04/23 Unknown Urine Glucose (UA) Negative (Negative) 09/04/23 Unknown Urine Ketones Trace (Negative) H 09/04/23 Unknown Urine Nitrite Negative (Negative) 09/04/23 Unknown Ur Leukocyte Esterase 2+ (Negative) H 09/04/23 Unknown Urine WBC (Auto) >50 /hpf (0-5) H 09/04/23 Unknown Urine RBC (Auto) 3-5 /hpf (0-2) H 09/04/23 Unknown U Hyaline Cast (Auto) 0-2 /lpf (0-2) 09/04/23 Unknown U Epithel Cells (Auto) 0-2 /hpf (0-2) 09/04/23 Unknown Urine Bacteria (Auto) 4+ (None Seen) H 09/04/23 Unknown 09/04/23 Unknown Urine Culture - Final Urine,Clean Catch Proteus mirabilis 09/09/23 09/09/23 12:05 06:09 POC Glucose 96 93 Electrocardiogram Date: 09/08/23 Findings: + NSR @ (@ 86) Chest X-Ray Date: 09/08/23 Findings: + NAD and + atherosclerosis of thoracic aorta
[2023-09-09] MEDS ORDERED: fentaNYL citrate PF 100 MCG/2 ML VIAL IV PRN (17:11)
[2023-09-09] MEDS ORDERED: NALOXONE HCL 0.4 MG/1 ML VIAL/CARP IV PRN (17:11)
[2023-09-09] MEDS ORDERED: PROMETHAZINE HCL 6.25 MG in SODIUM CHLORIDE 0.9% 50 ML IV PRN (17:11)
[2023-09-09] MEDS ORDERED: ePHEDrine sulfate 50 MG/ML AMP IV PRN (17:11)
[2023-09-09] MEDS ORDERED: FLUMAZENIL 0.1 MG/1 ML 10 ML VIAL IV PRN (17:11)
[2023-09-09] MEDS: DIATRIZOATE MEGLUMINE 30% 100ML VIAL INSTIL ONE (17:43)
--- NOTE | 2023-09-09 17:50 | Operative Report ---
PG Post Operative Report Pre & Post Diagnosis Operation Date: 09/09/23 11:25 Pre-Op Diagnosis: Bile duct abnormality Post-Op Diagnosis: Bile duct abnormality I identified the patient and participated in the time-out.: Yes Procedure Operation Date: 09/09/23 11:25 Actual Procedures p Cystoscopy, Retrograde Pyelogram, Right Ureteral Stent Placement - Jesus Anderson MD Surgeon Jesus Anderson MD Fermenter Wine None Estimated Blood Loss 0 Findings Consistent with Post-Op Diagnosis Specimens None Drains 6 Trinidadian by 24 cm double-J ureteral stent in the right ureter Anesthesia Type MAC Complications none Disposition Accompanied Patient To Recovery: Yes Disposition: Recovery Room Indications This is an 82-year-old female recently found to have urinary tract infection as well as a right ureteral stone with some right-sided hydronephrosis. She presents to the OR for right ureteral stent placement. Description of Procedure The patient was identified in the holding area and informed consent was confirmed. She was marked on the right side, then was taken to the operating room where anesthesia was initiated. She was placed in a modified dorsal lithotomy position with all pressure points appropriately padded. Of note, her left leg was very stiff and essentially did not bend at the knee. This was supported with a cushion. She was prepped and draped in the usual sterile fashion and a preoperative timeout was performed. A well-lubricated cystoscope was inserted per urethra and panendoscopy was performed. The urethra was normal in appearance. The bladder was irritated appearing with small amount of sediment. No tumors or stones were appreciated. Ureteral orifices were in orthotopic position. The right ureteral orifice was identified and cannulated with a 5 Trinidadian open- ended catheter. A retrograde pyelogram was performed demonstrating hydronephrosis. I did not appreciate significant filling defect or shadowing to suggest the stone. A 0.038" ZIPwire was advanced to the level of the kidney under fluoroscopic guidance. With the wire in place, there was passage of some stone debris. Over the wire, a 6 Trinidadian x 24 centimeter double-J ureteral stent was advanced. When the wire was removed, the proximal curl was visualized in the kidney with x-ray, and the distal curl visualized in the bladder with the cystoscope. At this point the bladder was drained and all instrumentation was removed. The patient was then awakened from anesthesia and was brought to the PACU in stable condition. I attest to the content of the Intraoperative Record and any orders documented therein. Any exceptions are noted below.
--- NOTE | 2023-09-09 18:27 | Anesthesiology Progress Note ---
Date of Service September 09, 2023 Anesthesia Post Procedure Vital Signs Vital Signs: Temp Pulse Pulse Resp BP Pulse Ox O2 Del Method 09/09/23 18:20 37.1 C 86 13 115/59 L 93 Nasal Cannula 09/09/23 18:10 37.1 C 86 13 93/62 L 93 Nasal Cannula 09/09/23 18:00 95 H 13 112/78 93 Nasal Cannula 09/09/23 17:54 36.0 C L 89 22 117/79 96 Nasal Cannula 09/09/23 17:00 37.1 C 85 18 124/68 93 Room Air 09/09/23 15:41 36.9 C 86 16 126/71 90 Room Air 09/09/23 15:23 Room Air 09/09/23 14:10 86 16 93 Room Air 09/09/23 10:13 82 16 95 Room Air 09/09/23 08:59 36.8 C 87 14 110/58 L 92 Room Air 09/09/23 07:18 80 18 94 Room Air 09/08/23 20:30 72 16 95 Room Air 09/08/23 20:05 Room Air 09/08/23 20:01 36.6 C 81 16 120/57 L 95 Room Air O2 Flow Rate 09/09/23 18:20 2 09/09/23 18:10 2 09/09/23 18:00 2 09/09/23 17:54 2 09/09/23 17:00 09/09/23 15:41 09/09/23 15:23 09/09/23 14:10 09/09/23 10:13 09/09/23 08:59 09/09/23 07:18 09/08/23 20:30 09/08/23 20:05 09/08/23 20:01 Pain Intensity Bilateral Foot: Pain Intensity: 3 Transfer of Care Handoff Completed per policy Notes Mental Status: alert / awake / arousable Patient Amnestic to Procedure: Yes Nausea / Vomiting: adequately controlled Pain: adequately controlled Airway Patency, RR, SpO2: stable & adequate BP & HR: stable & adequate Hydration State: stable & adequate Anesthetic Complications: no major complications apparent
--- NOTE | 2023-09-09 19:50 | Fluoroscopy Report ---
FL retrograde includes kub CLINICAL HISTORY: RIGHT STENT PLACEMENT COMPARISON STUDY: CT of the abdomen and pelvis September 08, 2023. FLUOROSCOPY TIME: 11.2 seconds. Ka, r: 1.87 mGy FLUOROSCOPIC IMAGES: 4 FINDINGS: Fluoroscopy was provided during right retrograde pyelogram. Right ureter is partially opaci fied. The collecting system is not visualized. No ureteral stent is identified on these fluoroscopic images. IMPRESSION: Fluoroscopy provided during right retrograde exam. ACT 112: Negative or not required by law. Electronically signed by: Rigo Harden M.D. 09/09/2023 7:48 PM
[2023-09-09] MEDS ORDERED: Nursing to Pharmacy Communication SCH (20:45)
--- NOTE | 2023-09-10 08:24 | Urology Progress Note ---
Date of Service September 10, 2023 Assessment & Plan (1) Urinary tract obstruction by kidney stone: (2) Hydroureteronephrosis: Plan: - Pt POD#1 s/p cystoscopy and right ureteral stent - Subjectively doing well - Afebrile with stable vitals - Lab work reviewed - creatinine 0.65, WBC 11.14 - Urine culture 09/03 grew out Proteus - Tolerating right ureteral stent with minimal bother - Okay to d/c from perspective when medically stable - Recommend d/c with course of PO antibiotics per urine culture data - Can d/c with Tamsulosin, prn Pyridium and prn pain medication for stent management - Expected clinical course reviewed, all questions answered - Will arrange outpatient follow-up with our service to discuss definitive stone treatment - will sign off, please contact our service with any questions or concerns Admission and Anticipated Discharge Date Admission Date: September 04, 2023 Subjective Patient seen and examined at bedside this morning No acute issues overnight She is awake and eating breakfast Denies nausea or vomiting Denies pain No fever or chills Review of Systems Constitutional: as per Subjective / HPI Gastrointestinal: as per Subjective / HPI Genitourinary: as per Subjective / HPI Physical Exam Constitutional: cooperative and comfortable; no acute distress Respiratory: no respiratory distress and no labored breathing Musculoskeletal: Head/Neck/Chest: normocephalic Psychiatric: Orientation: oriented to person and cooperative Genitourinary: Purewick draining concentrated urine Results & Data Vital Signs (Past 12 Hours) Vital Signs Temp Pulse Resp BP Pulse Ox O2 Del Method O2 Flow Rate 09/10/23 07:28 72 16 94 Nasal Cannula 2 09/10/23 07:17 37 C 75 16 113/61 94 Room Air 09/10/23 03:06 37.2 C 89 16 99/58 L 95 Nasal Cannula 3 09/09/23 22:54 37.5 C 92 H 18 125/72 94 Nasal Cannula 3 09/09/23 21:37 37.1 C 98 H 18 110/68 93 Nasal Cannula 2 09/09/23 20:35 37.1 C 92 H 18 143/71 H 94 Nasal Cannula 2 PG Care Time/CCT Total # of Minutes Spent Total Time Spent with Patient: Total time spent is greater than 50% in coordination of care (as documented) at patient's floor/unit and/or counseling patient: Coding Level of Care Code 20954 SUB INP/OBS CARE Diagnoses Urinary tract obstruction by kidney stone N20.0; N13.8 Hydroureteronephrosis N13.30
[2023-09-10 08:43] LABS: Basophils # (auto) 0.03 K/uL (0.00-0.20); Basophils % (auto) 0.3 %; Eosinophils # (auto) 0.39 K/uL (0.00-0.50); Eosinophils % (auto) 3.5 %; Hematocrit (blood only) 35.4 % (37.0-47.0); Hemoglobin 11.3 g/dl (12.0-16.0); Immature Granulocytes # (auto) 0.03 K/uL (0.01-0.20); Immature Granulocytes % (auto) 0.3 %; Lymphocytes % (auto) 37.7 %; Mean Corpuscular Hemoglobin 28.9 pg (25.0-34.0); Mean Corpuscular Hgb Conc 31.9 g/dL (32.0-36.0); Mean Corpuscular Volume 90.5 fL (80.0-100.0); Mean Platelet Volume 10.6 fL (9.4-12.4); Monocytes # (auto) 0.84 K/uL (0.11-0.59); Monocytes % (auto) 7.5 %; Neutrophils # (auto) 5.65 K/uL (1.40-6.50); Neutrophils % (auto) 50.7 %; Platelet Count 157 K/uL (130-400); RDW Coefficient of Variation 14.8 % (11.5-14.5); RDW Standard Deviation 49.7 fL (36.4-46.3); Red Blood Count 3.91 M/uL (4.20-5.40); White Blood Count 11.14 K/ul (4.8-10.8)
[2023-09-10 09:09] LABS: BUN Creatinine Ratio 29.2 (10-20); Calcium 7.9 mg/dl (8.6-10.3); Creatinine Clr Calc Pharmacy 67.4 ml/min; Est GFR (African American) 97.2 ml/min; Est GFR (Non-African American) 83.9 ml/min; Potassium 4.2 mmol/L (3.5-5.1)
[2023-09-10] MEDS: cephALEXin 500 MG CAP PO SCH (11:41)
[2023-09-10 14:53] LABS: Albumin Level 3.3 gm/dl (3.4-5.0); Bilirubin Direct 0.1 mg/dl (0-0.2); Bilirubin,Total 0.5 mg/dl (0.2-1.0); Total Protein 5.6 gm/dl (6.0-8.3)
--- NOTE | 2023-09-10 20:06 | Hospitalist Progress Note ---
Date of Service September 10, 2023 Assessment & Plan (1) Urinary tract obstruction by kidney stone: Plan: POD #1 s/p cystoscopy with right ureteral stent placement by Dr Anderson. This was done 2nd to obstruction/hydronephrosis from a 9mm distal ureteral kidney stone. Of note -- patient had presented to [facility] with gross hematuria and concerns for UTI (as well as COPD flare). urine cx grew proteus. hematuria resolved several days ago with Rx of the UTI. definitive stone management will be arranged post-d/c by [facility]. if she develops stent pain can start flomax, etc. Rx UTI (was on rocephin, now keflex). (2) UTI (urinary tract infection): Plan: complicated UTI due to concomitant obstructing kidney stone 2nd proteus previously on rocephin IV changed to PO keflex to complete the course plan keflex 500mg QID x 7 days, then consider keeping on low-dose keflex until she has definitive stone treatment and stent retrieval (3) Choledocholithiasis: Plan: incidentally a CBD stone was seen on CT a/p (CT scan had been obtained due to mild abd discomfort and prior history of kidney stones). she does not have a gall bladder. Cholecystectomy was performed at [facility] within the last 3-4 years - daughter uncertain of date. Daughter thinks her mother had an ERCP procedure? serial LFTs remain normal. daughter aware of both the kidney stone and the suspected CBD stone. [facility] consulted -- no urgent Rx needed; she has good appetite, normal LFTs, no GI symptoms. CBD stone likely chronic. Will need outpatient EUS/ERCP - asked clinical secretary to set up with Orin Doss for consultation for this. if any clinical worsening while here, however - RUQ pain, rise in LFTs, etc - then MRCP. (4) Cognitive impairment: Plan: on MMSE (skipped writing a sentence and drawing complex figures as pt is left-handed and can't use that arm due to prior CVA). pt's daughter suggested her mother is close to baseline at this time. consider repeat MMSE in a few days after #1 is taken care of, etc, as there still may be a component of acute delirium superimposed on top of her dementia. MMSE had been done as daughter wanted to complete POA paperwork. However, service excellence concerned patient may not have capacity to complete the paperwork as she may not understand what she is signing. (5) COPD exacerbation: Plan: resolved. CXR wnl at time of admission. Respiratory BioFire panel negative. Was taking prednisone prior to admission and then switched to IV solumedrol upon arrival here. Steroids now off as of 09/04. Remains on scheduled albuterol qid. Cont mucinex BID. (6) Chest pain: Plan: Resolved. Likely was bronchospasm leading to chest tightness. EKG wnl. Troponins negative. No echo in our EMR. Consider obtaining such prior to discharge. (7) Dehydration: Plan: Present on admission by report - now resolved. IV fluids given yesterday for cystoscopy now off. (8) History of deep venous thrombosis (DVT) of distal vein of right lower extremity: Plan: Noted. Typically on Eliquis 5mg BID. Was placed on hold at time of admission due to gross hematuria. Hematuria resolved. Will resume Eliquis in am tomorrow -- has had no bleeding since her cystoscopy yesterday. 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: Plan: Hgb A1c 6% on 08/26/23 Novolog SSI as needed BSGs well controlled at this time (11) Vascular dementia: Plan: MMSE - see above Does have prior h/o stroke (I'm assuming right sided MCA territory stroke or right sided basal ganglia stroke given her motor findings) I do not have any brain imaging to look at B12 level in May 2023 was <350 -- start PO replacement Send B1 level TSH 1.3 in 2022 (12) Chronic pain: Plan: Pt describes neuropathic pain in feet; she c/o this on daily basis Cont lyrica 50mg - change to TID dosing so it is not dosed in middle of the night or early am Increase tramadol from 50mg BID to 50mg TID (per PDMP has been on tramadol for several years - likely has tolerance) This dose increase should help Added lidocaine jelly prn to either foot (13) Abnormal CBC: Plan: smudge cells, lymphocytosis, etc - concerning for CLL flow cytometry has returned suggestive of CLL will need f/u with [facility] post-discharge cell lines are acceptable at this time I made pt's daughter (and patient, but I don't think she understands the conversation surrounding this) aware of the abnormal CBC and concern for CLL (14) History of CVA (cerebrovascular accident): 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 basal ganglia CVA? stroke occurred while living in [place] - those records are not available Eliquis had been on hold since admission due to previous hematuria Held yesterday due to needing ureteral stenting No bleeding since the cystoscopy - can resume Eliquis tomorrow am cont statin Plan PT, OT to be of limited benefit - she is bed-bound, hemiplegic on left, lift- dependent appreciate [facility] and GI assistance care d/w pt's daughter by phone extensively yesterday and in person The patient needs a hospital bed for her home. She will be discharging to home with her daughter. The patient has a medical condition (stroke with resulting left-sided hemiplegia) that requires positioning of the body in ways not feasible with an ordinary bed. The patient also needs a evelyn lift. Patient is non-ambulatory at baseline. Patient needs to be transferred between bed and chair or wheelchair to commode and, without lift use, the patient otherwise would be confined to the bed. If patient remains stable overnight and if all necessary equipment, etc have been arranged for home she can d/c to home with her daughter either on Wednesday or Wednesday. Admission and Anticipated Discharge Date Admission Date: September 04, 2023 Subjective no events overnight pt asking for TV to be turned on and wants to find the phone and remote she asks repetitive questions much like previous visits denies pain in any location eating well per nursing flowsheets Review of Systems Review of Systems: gen - "I feel good" cv - no chest pain pulm - no cough or dyspnea GI - no abd pain or N/V Physical Exam Physical Exam: gen - NAD, lying in bed comfortably, looks similar to previous visits mouth - MMM neck - ? mild JVD heart - RRR, s1 s2, no murmur lungs - CTA b/l - maybe slight rales bases abd - soft BS+ nontender today; mildly distended but had just eaten; no HSM neuro - hemiplegia LUE/LLE ext - right leg is larger than left leg; muscle atrophy noted of LUE/LLE; no edema b/l; pulses 2+ b/l feet skin - mild erythematous macular rash with occasional papule upper chest, left arm -- resolving Results & Data Results & Data Vital Signs (Past 12 Hours) Vital Signs Temp Pulse Pulse Resp BP Pulse Ox O2 Del Method 09/10/23 19:35 65 17 98 Nasal Cannula 09/10/23 14:27 37 C 79 16 119/69 91 Room Air 09/10/23 11:04 74 20 92 Room Air 09/10/23 08:15 Nasal Cannula O2 Flow Rate 09/10/23 19:35 2 09/10/23 14:27 09/10/23 11:04 09/10/23 08:15 2 Laboratory Results Laboratory Results - last 24 hr 09/09/23 09/10/23 09/10/23 20:54 07:40 07:54 WBC 11.14 H RBC 3.91 L Hgb 11.3 L Hct 35.4 L MCV 90.5 MCH 28.9 MCHC 31.9 L RDW Std Deviation 49.7 H RDW Coeff of Atilio 14.8 H Plt Count 157 MPV 10.6 Immature Gran % (Auto) 0.3 Neut % (Auto) 50.7 Lymph % (Auto) 37.7 Mclennan % (Auto) 7.5 Eos % (Auto) 3.5 Baso % (Auto) 0.3 Neut # (Auto) 5.65 Lymph # (Auto) 4.20 H Mclennan # (Auto) 0.84 H Eos # (Auto) 0.39 Baso # (Auto) 0.03 Immature Gran # (Auto) 0.03 Sodium 137 Potassium 4.2 Chloride 106 Carbon Dioxide 27 Anion Gap 4 BUN 19 Creatinine 0.65 Est Cr Clr Drug Dosing 67.4 Est GFR ( Amer) 97.2 Est GFR (Non-Af Amer) 83.9 BUN/Creatinine Ratio 29.2 H Glucose 96 POC Glucose 108 H 92 Calcium 7.9 L Total Bilirubin 0.5 Direct Bilirubin 0.1 AST 17 ALT 23 Alkaline Phosphatase 105 H Total Protein 5.6 L Albumin 3.3 L PG Care Time/CCT Total # of Minutes Spent Total Time Spent with Patient: Total time spent is greater than 50% in coordination of care (as documented) at patient's floor/unit and/or counseling patient: Coding Level of Care Code 61206 SUB INP/OBS CARE 2/35MIN Diagnoses Urinary tract obstruction by kidney stone N20.0; N13.8 Urinary tract infection with hematuria, site unspecified N39.0; R31.9 Hematuria presence: with hematuria Urinary tract infection type: site unspecified Choledocholithiasis K80.50 Cognitive impairment R41.89 COPD exacerbation J44.1 Chest pain R07.9 Dehydration E86.0 History of deep venous thrombosis (DVT) of distal vein of right lower extremity Z86.718 Hyperlipidemia E78.5 Type 2 diabetes mellitus with diabetic polyneuropathy E11.42 Vascular dementia F01.50 Chronic pain G89.29 Abnormal CBC R79.89 History of CVA (cerebrovascular accident) Z86.73 (2) UTI (urinary tract infection) Hematuria presence: with hematuria Urinary tract infection type: site unspecified Qualified Code(s): N39.0 - Urinary tract infection, site not specified; R31.9 - Hematuria, unspecified
[2023-09-11 07:42] LABS: BUN Creatinine Ratio 28.6 (10-20); Calcium 8.3 mg/dl (8.6-10.3); Creatinine Clr Calc Pharmacy 78.3 ml/min; Est GFR (African American) 102.1 ml/min; Est GFR (Non-African American) 88.1 ml/min
[2023-09-11] MEDS: SENNA 8.6 MG TAB PO SCH (11:21)
--- NOTE | 2023-09-11 14:48 | Hospitalist Progress Note ---
Date of Service September 11, 2023 Assessment & Plan (1) Urinary tract obstruction by kidney stone: Plan: POD #2 s/p cystoscopy with right ureteral stent placement by Dr Anderson. This was done 2nd to obstruction/hydronephrosis from a 9mm distal ureteral kidney stone. Of note -- patient had presented to [facility] with gross hematuria and concerns for UTI (as well as COPD flare). urine cx grew proteus. hematuria resolved several days ago with Rx of the UTI. definitive stone management will be arranged post-d/c by [facility]. if she develops stent pain can start flomax, etc. Rx UTI (was on rocephin, now keflex). (2) UTI (urinary tract infection): Plan: complicated UTI due to concomitant obstructing kidney stone 2nd proteus previously on rocephin IV changed to PO keflex to complete the course plan keflex 500mg QID x 7 days, then consider keeping on low-dose keflex until she has definitive stone treatment and stent retrieval (3) Choledocholithiasis: Plan: incidentally a CBD stone was seen on CT a/p (CT scan had been obtained due to mild abd discomfort and prior history of kidney stones). she does not have a gall bladder. Cholecystectomy was performed at [facility] within the last 3-4 years - daughter uncertain of date. Daughter thinks her mother had an ERCP procedure? serial LFTs remain normal. daughter aware of both the kidney stone and the suspected CBD stone. [facility] consulted -- no urgent Rx needed; she has good appetite, normal LFTs, no GI symptoms. CBD stone likely chronic. Will need outpatient EUS/ERCP - asked hospital secretary to set up with Orin Doss for consultation for this - referral was sent 09/09 clinic will call daughter to schedule if any clinical worsening while here, however - RUQ pain, rise in LFTs, etc - then MRCP. (4) Cognitive impairment: Plan: on MMSE (skipped writing a sentence and drawing complex figures as pt is left-handed and can't use that arm due to prior CVA). pt's daughter suggested her mother is close to baseline at this time. consider repeat MMSE in a few days after #1 is taken care of, etc, as there still may be a component of acute delirium superimposed on top of her dementia. MMSE had been done as daughter wanted to complete POA paperwork. However, service excellence concerned patient may not have capacity to complete the paperwork as she may not understand what she is signing. (5) COPD exacerbation: Plan: resolved. CXR wnl at time of admission. Respiratory BioFire panel negative. Was taking prednisone prior to admission and then switched to IV solumedrol upon arrival here. Steroids now off as of 09/04. Remains on scheduled albuterol qid. Cont mucinex BID. (6) Chest pain: Plan: Resolved. Likely was bronchospasm leading to chest tightness. EKG wnl. Troponins negative. No echo in our EMR. Consider obtaining such prior to discharge. -no chest pain or tightness 09/10 (7) Dehydration: Plan: Present on admission by report - now resolved. (8) History of deep venous thrombosis (DVT) of distal vein of right lower extremity: Plan: Noted. Typically on Eliquis 5mg BID. Was placed on hold at time of admission due to gross hematuria. Hematuria resolved. apixaban resumed 09/10 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: Plan: Hgb A1c 6% on 08/26/23 Novolog SSI as needed BSGs well controlled at this time 106-151 (11) Vascular dementia: Plan: MMSE - see above Does have prior h/o stroke (I'm assuming right sided MCA territory stroke or right sided basal ganglia stroke given her motor findings) I do not have any brain imaging to look at B12 level in May 2023 was <350 -- start PO replacement B1 level - pend TSH 1.3 in 2022 (12) Chronic pain: Plan: Pt describes neuropathic pain in feet; she c/o this on daily basis Cont lyrica 50mg - change to TID dosing so it is not dosed in middle of the night or early am Increase tramadol from 50mg BID to 50mg TID (per PDMP has been on tramadol for several years - likely has tolerance) This dose increase should help Added lidocaine jelly prn to either foot (13) Abnormal CBC: Plan: smudge cells, lymphocytosis, etc - concerning for CLL flow cytometry has returned suggestive of CLL will need f/u with [facility] post-discharge cell lines are acceptable at this time I made pt's daughter (and patient, but I don't think she understands the conversation surrounding this) aware of the abnormal CBC and concern for CLL (14) History of CVA (cerebrovascular accident): 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 basal ganglia CVA? stroke occurred while living in [place] - those records are not available Greg resumed cont statin Plan PT, OT to be of limited benefit - she is bed-bound, hemiplegic on left, lift- dependent appreciate [facility] and GI assistance care d/w pt's daughter by phone extensively yesterday and in person The patient needs a hospital bed for her home. She will be discharging to home with her daughter. The patient has a medical condition (stroke with resulting left-sided hemiplegia) that requires positioning of the body in ways not feasible with an ordinary bed. The patient also needs a evelyn lift. Patient is non-ambulatory at baseline. Patient needs to be transferred between bed and chair or wheelchair to commode and, without lift use, the patient otherwise would be confined to the bed. If patient remains stable overnight and if all necessary equipment, etc have been arranged for home she can d/c to home with her daughter either on Wednesday or Wednesday. Admission and Anticipated Discharge Date Admission Date: September 04, 2023 Subjective Alert, feels like breathing is much better, no wheezing or dyspnea, denies abdominal or SP pain Physical Exam 2 Physical Exam: PHYSICAL EXAMINATION Last 24h vital signs reviewed, see documentation in flowsheet General: comfortable appearing, no distress, awake HEENT: Normocephalic, atraumatic, pupils round and equal, sclerae anicteric, no conjunctival injection, moist mucus membranes Lungs: Normal respiratory effort. CTAB without Heart: Regular rate and rhythm, no murmurs. No JVD Abdomen: Soft, nontender, no SP tenderness, nondistended. Bowel sounds present. Extremities: Warm, dry, well-perfused. No extremity edema. Neuro: Alert and oriented x self and basic situation but poor memory can't remember me from last week, face symmetric, moves 4 extremities spontaneously Psych: Normal affect and behavior Results & Data Results & Data Vital Signs (Past 12 Hours) Vital Signs Temp Pulse Resp BP Pulse Ox O2 Del Method O2 Flow Rate 09/11/23 14:19 37.4 C 80 16 106/65 94 Room Air 09/11/23 11:26 68 18 95 Nasal Cannula 2 09/11/23 08:00 Nasal Cannula 2 09/11/23 07:35 58 L 18 96 Nasal Cannula 2 09/11/23 07:24 36.8 C 64 16 111/68 94 Room Air Laboratory Results 09/10/23 07:54 09/11/23 06:54 PG Care Time/CCT Total # of Minutes Spent Total Time Spent with Patient: Total time spent is greater than 50% in coordination of care (as documented) at patient's floor/unit and/or counseling patient: Coding Level of Care Code 13868 SUB INP/OBS CARE 06/10MIN Diagnoses Urinary tract obstruction by kidney stone N20.0; N13.8 Urinary tract infection with hematuria, site unspecified N39.0; R31.9 Urinary tract infection type: site unspecified Hematuria presence: with hematuria Choledocholithiasis K80.50 Cognitive impairment R41.89 COPD exacerbation J44.1 Chest pain R07.9 Dehydration E86.0 History of deep venous thrombosis (DVT) of distal vein of right lower extremity Z86.718 Hyperlipidemia E78.5 Type 2 diabetes mellitus with diabetic polyneuropathy E11.42 Vascular dementia F01.50 Chronic pain G89.29 Abnormal CBC R79.89 History of CVA (cerebrovascular accident) Z86.73 (2) UTI (urinary tract infection) Urinary tract infection type: site unspecified Hematuria presence: with hematuria Qualified Code(s): N39.0 - Urinary tract infection, site not specified; R31.9 - Hematuria, unspecified
--- NOTE | 2023-09-12 14:11 | Hospitalist Progress Note ---
Date of Service September 12, 2023 Assessment & Plan (1) Urinary tract obstruction by kidney stone: Plan: POD #3 s/p cystoscopy with right ureteral stent placement by Dr Anderson. This was done 2nd to obstruction/hydronephrosis from a 9mm distal ureteral kidney stone. Of note -- patient had presented to [facility] with gross hematuria and concerns for UTI (as well as COPD flare). urine cx grew proteus. hematuria resolved several days ago with Rx of the UTI. definitive stone management will be arranged post-d/c by [facility]. if she develops stent pain can start flomax, etc- but thus far no issues with such. Rx UTI (was on rocephin, now keflex). day #7-8 of IV/PO abx. (2) UTI (urinary tract infection): Plan: complicated UTI due to concomitant obstructing kidney stone 2nd proteus previously on rocephin IV changed to PO keflex to complete the course plan keflex 500mg QID x 7 days, then consider keeping on low-dose keflex until she has definitive stone treatment and stent retrieval (3) Choledocholithiasis: Plan: incidentally a CBD stone was seen on CT a/p (CT scan had been obtained due to mild abd discomfort and prior history of kidney stones). she does not have a gall bladder. Cholecystectomy was performed at [facility] within the last 3-4 years - daughter uncertain of date. Daughter thinks her mother had an ERCP procedure? serial LFTs remain normal. daughter aware of both the kidney stone and the suspected CBD stone. [facility] consulted -- no urgent Rx needed; she has good appetite, normal LFTs, no GI symptoms. CBD stone likely chronic. Will need outpatient EUS/ERCP - asked membership secretary to set up with Orin Doss for consultation for this. if any clinical worsening while here, however - RUQ pain, rise in LFTs, etc - then MRCP. (4) Cognitive impairment: Plan: on MMSE (skipped writing a sentence and drawing complex figures as pt is left-handed and can't use that arm due to prior CVA). pt's daughter suggested her mother is close to baseline at this time. consider repeat MMSE in a few days after #1 is taken care of, etc, as there still may be a component of acute delirium superimposed on top of her dementia. MMSE had been done as daughter wanted to complete POA paperwork. However, service excellence concerned patient may not have capacity to complete the paperwork as she may not understand what she is signing. (5) COPD exacerbation: Plan: resolved. CXR wnl at time of admission. Respiratory BioFire panel negative. Was taking prednisone prior to admission and then switched to IV solumedrol upon arrival here. Steroids now off as of 09/04. Remains on scheduled albuterol qid. Cont mucinex BID. (6) Chest pain: Plan: Resolved. Likely was bronchospasm leading to chest tightness. EKG wnl. Troponins negative. No echo in our EMR. Consider obtaining such prior to discharge. (7) Dehydration: Plan: Present on admission by report - now resolved. Eating well. (8) History of deep venous thrombosis (DVT) of distal vein of right lower extremity: Plan: Noted. Typically on Eliquis 5mg BID. Was placed on hold at time of admission due to gross hematuria. Hematuria resolved. Eliquis resumed 09/10 - no bleeding/hematuria since resumption. 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: Plan: Hgb A1c 6% on 08/26/23 Novolog SSI as needed BSGs well controlled at this time (11) Vascular dementia: Plan: MMSE - see above Does have prior h/o stroke (I'm assuming right sided MCA territory stroke or right sided basal ganglia stroke given her motor findings) I do not have any brain imaging to look at B12 level in May 2023 was <350 -- start PO replacement Send B1 level TSH 1.3 in 2022 (12) Chronic pain: Plan: Pt describes neuropathic pain in feet; she c/o this on daily basis Cont lyrica 50mg - change to TID dosing so it is not dosed in middle of the ni ght or early am Increase tramadol from 50mg BID to 50mg TID (per PDMP has been on tramadol for several years - likely has tolerance) This dose increase should help Added lidocaine jelly prn to either foot Consider low-dose gabapentin 100mg BID - perfect time to watch her on it due to ?lyrica allergy/intolerance. Will trial tomorrow. 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 basal ganglia CVA? stroke occurred while living in [place] - those records are not available Cont Eliquis for secondary prevention cont statin (15) Left hand pain: Plan: due to neuropathy? if so, could be c-spine related, or due to prior stroke injury, vs other. again consider trial of low-dose gabapentin. I obtained EKG to ensure this pain was not a symptom of ischemia -- EKG w/o ischemic changes; no change from prior EKG highly unlikely to be ischemic sounds more neuropathic Plan PT, OT to be of limited benefit - she is bed-bound, hemiplegic on left, lift- dependent appreciate [facility] and GI assistance The patient needs a hospital bed for her home. She will be discharging to home with her daughter. The patient has a medical condition (stroke with resulting left-sided katt plegia) that requires positioning of the body in ways not feasible with an ordinary bed. The patient also needs a evelyn lift. Patient is non-ambulatory at baseline. Patient needs to be transferred between bed and chair or wheelchair to commode and, without lift use, the patient otherwise would be confined to the bed. per social work daughter cannot bring patient home until Wednesday of this week? will updated pt's daughter tomorrow on 09/12 Admission and Anticipated Discharge Date Admission Date: September 04, 2023 Subjective patient only c/o b/l foot pain from neuropathy she also complains of mild L hand pain that mainly involves the 2nd/3rd digits and moves up the forearm just before the L elbow denies neck pain denies chest pain denies dyspnea eating well / good appetite no new complaints asks the same questions over and over like the previous visit Review of Systems Review of Systems: cv - no chest pain, no orthopnea pulm - no cough GI - no N/V - incontinent Physical Exam Physical Exam: gen - NAD, lying in bed comfortably, looks similar to previous visits, watching TV mouth - MMM neck - very mild JVD heart - RRR, s1 s2, no murmur lungs - CTA b/l, decreased BS bases abd - soft BS+ NT ND; no HSM neuro - hemiplegia LUE/LLE ext - right leg is larger than left leg; muscle atrophy noted of LUE/LLE; no edema b/l; pulses 2+ b/l feet skin - previous rash resolved (was on L arm, upper chest, etc) musculo - left hand - mild contracture deformity; no synovitis of any joint L hand; nontender to palpation or with passive ROM Results & Data Results & Data Vital Signs (Past 12 Hours) Vital Signs Temp Pulse Resp BP Pulse Ox O2 Del Method O2 Flow Rate 09/12/23 11:19 74 18 93 Room Air 09/12/23 08:00 Nasal Cannula 2 09/12/23 07:31 36.7 C 72 16 105/59 L 95 Room Air 09/12/23 07:12 71 18 96 Nasal Cannula 2 Laboratory Results Laboratory Results - last 48 hr 09/11/23 09/11/23 09/11/23 11:31 16:40 20:33 WBC RBC Hgb Hct MCV MCH MCHC RDW Std Deviation RDW Coeff of Atilio Plt Count MPV Immature Gran % (Auto) Neut % (Auto) Lymph % (Auto) Grayson % (Auto) Eos % (Auto) Baso % (Auto) Neut # (Auto) Lymph # (Auto) Grayson # (Auto) Eos # (Auto) Baso # (Auto) Immature Gran # (Auto) Sodium Potassium Chloride Carbon Dioxide Anion Gap BUN Creatinine Est Cr Clr Drug Dosing Est GFR ( Amer) Est GFR (Non-Af Amer) BUN/Creatinine Ratio Glucose POC Glucose 106 H 159 H 144 H Calcium Total Bilirubin AST ALT Alkaline Phosphatase Total Protein Albumin Globulin Albumin/Globulin Ratio 09/12/23 09/12/23 09/12/23 07:36 11:34 16:45 WBC RBC Hgb Hct MCV MCH MCHC RDW Std Deviation RDW Coeff of Atilio Plt Count MPV Immature Gran % (Auto) Neut % (Auto) Lymph % (Auto) Grayson % (Auto) Eos % (Auto) Baso % (Auto) Neut # (Auto) Lymph # (Auto) Grayson # (Auto) Eos # (Auto) Baso # (Auto) Immature Gran # (Auto) Sodium Potassium Chloride Carbon Dioxide Anion Gap BUN Creatinine Est Cr Clr Drug Dosing Est GFR ( Amer) Est GFR (Non-Af Amer) BUN/Creatinine Ratio Glucose POC Glucose 157 H 108 H 198 H Calcium Total Bilirubin AST ALT Alkaline Phosphatase Total Protein Albumin Globulin Albumin/Globulin Ratio PG Care Time/CCT Total # of Minutes Spent Total Time Spent with Patient: Total time spent is greater than 50% in coordination of care (as documented) at patient's floor/unit and/or counseling patient: Coding Level of Care Code 66115 SUB INP/OBS CARE 2/35MIN Diagnoses Urinary tract obstruction by kidney stone N20.0; N13.8 Urinary tract infection with hematuria, site unspecified N39.0; R31.9 Hematuria presence: with hematuria Urinary tract infection type: site unspecified Choledocholithiasis K80.50 Cognitive impairment R41.89 COPD exacerbation J44.1 Chest pain R07.9 Dehydration E86.0 History of deep venous thrombosis (DVT) of distal vein of right lower extremity Z86.718 Hyperlipidemia E78.5 Type 2 diabetes mellitus with diabetic polyneuropathy E11.42 Vascular dementia F01.50 Chronic pain G89.29 Abnormal CBC R79.89 History of CVA (cerebrovascular accident) Z86.73 Left hand pain M79.642 (2) UTI (urinary tract infection) Hematuria presence: with hematuria Urinary tract infection type: site unsp ecified Qualified Code(s): N39.0 - Urinary tract infection, site not specified; R31.9 - Hematuria, unspecified
[2023-09-12] MEDS: ACETAMINOPHEN 500 MG TAB PO SCH (15:04)
[2023-09-12] MEDS: bisacodyL 10 MG SUPP PR ONE (18:02)
[2023-09-13 08:05] LABS: Basophils # (auto) 0.07 K/uL (0.00-0.20); Basophils % (auto) 0.7 %; Eosinophils # (auto) 0.39 K/uL (0.00-0.50); Eosinophils % (auto) 4.2 %; Hematocrit (blood only) 37.8 % (37.0-47.0); Hemoglobin 11.8 g/dl (12.0-16.0); Immature Granulocytes # (auto) 0.07 K/uL (0.01-0.20); Immature Granulocytes % (auto) 0.7 %; Lymphocytes # (auto) 4.31 K/uL (1.20-3.40); Mean Corpuscular Hemoglobin 28.4 pg (25.0-34.0); Mean Corpuscular Hgb Conc 31.2 g/dL (32.0-36.0); Mean Corpuscular Volume 91.1 fL (80.0-100.0); Monocytes # (auto) 0.67 K/uL (0.11-0.59); Monocytes % (auto) 7.2 %; Neutrophils # (auto) 3.85 K/uL (1.40-6.50); Neutrophils % (auto) 41.2 %; Platelet Count 155 K/uL (130-400); RDW Coefficient of Variation 14.6 % (11.5-14.5); RDW Standard Deviation 49.1 fL (36.4-46.3); Red Blood Count 4.15 M/uL (4.20-5.40); White Blood Count 9.36 K/ul (4.8-10.8)
[2023-09-13 08:22] LABS: Albumin Globulin Ratio 1.4 (0.9-2); Albumin Level 3.5 gm/dl (3.4-5.0); BUN Creatinine Ratio 32.1 (10-20); Bilirubin,Total 0.4 mg/dl (0.2-1.0); Calcium 8.7 mg/dl (8.6-10.3); Creatinine Clr Calc Pharmacy 77.8 ml/min; Est GFR (African American) 102.1 ml/min; Est GFR (Non-African American) 88.1 ml/min; Globulin 2.5 gm/dl (2.5-4.0); Potassium 4.2 mmol/L (3.5-5.1)
--- NOTE | 2023-09-13 08:52 | Electrocardiogram Report ---
Test Reason : Blood Pressure : / mmHG Vent. Rate : 080 BPM Atrial Rate : 080 BPM P-R Int : 158 ms QRS Dur : 070 ms QT Int : 358 ms P-R-T Axes : 019 -08 031 degrees QTc Int : 412 ms Normal sinus rhythm Inferior infarct , age undetermined Abnormal ECG When compared with ECG of 04-SEP-2023 12:38, No significant change Confirmed by Tristan Moreno ([id number]) on 09/13/2023 8:52:07 AM Referred By: [facility] Confirmed By:Tristan Moreno
[2023-09-13] MEDS: GABAPENTIN 100 MG CAP PO SCH (09:54)
--- NOTE | 2023-09-13 16:10 | Hospitalist Progress Note ---
Date of Service September 13, 2023 Assessment & Plan (1) Urinary tract obstruction by kidney stone: Plan: POD #4 s/p cystoscopy with right ureteral stent placement by Dr Anderson. This was done 2nd to obstruction/hydronephrosis from a 9mm distal ureteral kidney stone. Of note -- patient had presented to [facility] with gross hematuria and concerns for UTI (as well as COPD flare). urine cx grew proteus. hematuria resolved several days ago with Rx of the UTI. definitive stone management will be arranged post-d/c by [facility]. if she develops stent pain can start flomax, etc- but thus far no issues with such. Rx UTI (was on rocephin, now keflex). day #8-9 of IV/PO abx. (2) UTI (urinary tract infection): Plan: complicated UTI due to concomitant obstructing kidney stone 2nd proteus previously on rocephin IV changed to PO keflex to complete the course plan keflex 500mg QID x 7 days, then consider keeping on low-dose keflex until she has definitive stone treatment and stent retrieval (3) Choledocholithiasis: Plan: incidentally a CBD stone was seen on CT a/p (CT scan had been obtained due to mild abd discomfort and prior history of kidney stones). she does not have a gall bladder. Cholecystectomy was performed at [facility] within the last 3-4 years - daughter uncertain of date. Daughter thinks her mother had an ERCP procedure? serial LFTs remain normal. daughter aware of both the kidney stone and the suspected CBD stone. [facility] consulted -- no urgent Rx needed; she has good appetite, normal LFTs, no GI symptoms. CBD stone likely chronic. Will need outpatient EUS/ERCP - asked medical office secretary to set up with Orin Doss for consultation for this. if any clinical worsening while here, however - RUQ pain, rise in LFTs, etc - then MRCP. (4) Cognitive impairment: Plan: on MMSE (skipped writing a sentence and drawing complex figures as pt is left-handed and can't use that arm due to prior CVA). pt's daughter suggested her mother is close to baseline at this time. since completing that MMSE she has had NO change in her overall mental status. MMSE had been done as daughter wanted to complete POA paperwork. However, service excellence concerned patient may not have capacity to complete the paperwork as she may not understand what she is signing. (5) Vascular dementia: Plan: MMSE - see above Does have prior h/o stroke (I'm assuming right sided MCA territory stroke or right sided basal ganglia stroke given her motor findings) I do not have any brain imaging to look at B12 level in May 2023 was <350 -- started PO replacement 1000mcg daily B1 level pending TSH 1.3 in 2022 (6) COPD exacerbation: Plan: resolved. CXR wnl at time of admission. Respiratory BioFire panel negative. Was taking prednisone prior to admission and then switched to IV solumedrol upon arrival here. Steroids now off as of 09/04. Remains on scheduled albuterol qid. Cont mucinex BID. (7) Chest pain: Plan: Had such prior to admission per the admission H & P. Had Resolved -- thought 2nd to bronchospasm leading to chest tightness. EKG wnl. Troponins negative. She has intermittently complained of her chest a few more times since admission including today. EKG repeated - no ischemic changes. Repeat troponin - again negative. Will obtain echo in am to ensure pain is not cardiac in etiology. (8) Dehydration: Plan: Present on admission by report - now resolved. Eating well. (9) History of deep venous thrombosis (DVT) of distal vein of right lower extremity: Plan: Noted. Typically on Eliquis 5mg BID. Was placed on hold at time of admission due to gross hematuria. Hematuria resolved. Eliquis resumed 09/10 - no bleeding/hematuria since resumption. (10) Hyperlipidemia: Plan: Continue Atorvastatin LFTs wnl (11) Type 2 diabetes mellitus with diabetic polyneuropathy: Plan: Hgb A1c 6% on 08/26/23 Novolog SSI as needed BSGs well controlled at this time (12) Chronic pain: Plan: Pt describes neuropathic pain in feet; she c/o this on daily basis Cont lyrica 50mg - changed to TID dosing so it is not dosed in middle of the night or early am Increase tramadol from 50mg BID to 50mg TID (per PDMP has been on tramadol for several years - likely has tolerance) Added lidocaine jelly prn to either foot Despite the above she continues with pain in feet - consider increasing to 75mg TID of lyrica, but uncertain she would tolerate this dose Defer for now (13) Abnormal CBC: Plan: smudge cells, lymphocytosis, etc - concerning for CLL 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 basal ganglia CVA? stroke occurred while living in [place] - those records are not available Cont Eliquis for secondary prevention cont statin (15) Left hand pain: Plan: due to neuropathy? if so, could be c-spine related, or due to prior stroke injury, vs other. I obtained EKG to ensure this pain was not a symptom of ischemia -- EKG w/o ischemic changes; no change from prior EKG highly unlikely to be ischemic sounds more neuropathic (16) Abdominal distension: Plan: likely due to constipation and slow GI transit due to bed-bound status s/p dulcolax suppos without success yesterday she remains on miralax BID + senna try dulcolax suppos again today if no success then enema tomorrow Plan PT, OT to be of limited benefit - she is bed-bound, hemiplegic on left, lift- dependent appreciate [facility] assistance The patient needs a hospital bed for her home. She will be discharging to home with her daughter. The patient has a medical condition (stroke with resulting left-sided hemiplegia) that requires positioning of the body in ways not feasible with an ordinary bed. The patient also needs a evelyn lift. Patient is non-ambulatory at baseline. Patient needs to be transferred between bed and chair or wheelchair to commode and, without lift use, the patient otherwise would be confined to the bed. per social work daughter cannot bring patient home until Wednesday of this week? updated pt's daughter today - 09/13/23 Admission and Anticipated Discharge Date Admission Date: September 04, 2023 Subjective no events patient resting comfortably in bed per nursing flowsheets oral intake has been good throughout the day today she self-reports good appetite as well c/o chest heaviness/tightness - she can't tell me when it started, but states it has now resolved she can't give me any details about this complaint denies cough denies dyspnea denies abd pain denies nausea no stool since 09/08/23 updated pt's daughter by phone this evening Review of Systems Review of Systems: gen - "I feel good" cv - see subjective portion of note; no orthopnea GI - no vomiting - incontinent of urine pulm - no dyspnea, no wheezing neuro - continues to c/o b/l foot pain Physical Exam Physical Exam: gen - NAD, lying in bed comfortably, looks same as yesterday mouth - MMM neck - no JVD heart - RRR, s1 s2, no murmur lungs - CTA b/l, decreased BS bases, no wheeze or rales abd - very distended today, but nontender; BS+ neuro - hemiplegia LUE/LLE ext - no edema b/l; pulses 2+ b/l feet musculo - left hand - mild contracture deformity; left foot - 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; b/l foot deformities with foot drop psych - doesn't recall that we talked about d/c home with daughter; oriented to person/place only Results & Data Results & Data Vital Signs (Past 12 Hours) Vital Signs Temp Pulse Pulse Resp BP Pulse Ox O2 Del Method 09/13/23 15:18 36.3 C L 79 16 103/61 96 Room Air 09/13/23 14:28 77 16 95 Room Air 09/13/23 11:05 70 16 96 Room Air 09/13/23 07:19 36.5 C 63 18 128/77 99 Other 09/13/23 07:14 66 16 95 Room Air Laboratory Results Laboratory Results - last 48 hr 09/12/23 09/12/23 09/12/23 07:36 11:34 16:45 WBC RBC Hgb Hct MCV MCH MCHC RDW Std Deviation RDW Coeff of Atilio Plt Count MPV Immature Gran % (Auto) Neut % (Auto) Lymph % (Auto) Warrick % (Auto) Eos % (Auto) Baso % (Auto) Neut # (Auto) Lymph # (Auto) Warrick # (Auto) Eos # (Auto) Baso # (Auto) Immature Gran # (Auto) Sodium Potassium Chloride Carbon Dioxide Anion Gap BUN Creatinine Est Cr Clr Drug Dosing Est GFR ( Amer) Est GFR (Non-Af Amer) BUN/Creatinine Ratio Glucose POC Glucose 157 H 108 H 198 H Calcium Total Bilirubin AST ALT Alkaline Phosphatase Troponin I High Sens Total Protein Albumin Globulin Albumin/Globulin Ratio 09/12/23 09/13/23 09/13/23 20:59 07:39 07:49 WBC 9.36 RBC 4.15 L Hgb 11.8 L Hct 37.8 MCV 91.1 MCH 28.4 MCHC 31.2 L RDW Std Deviation 49.1 H RDW Coeff of Atilio 14.6 H Plt Count 155 MPV 10.0 Immature Gran % (Auto) 0.7 Neut % (Auto) 41.2 Lymph % (Auto) 46.0 Warrick % (Auto) 7.2 Eos % (Auto) 4.2 Baso % (Auto) 0.7 Neut # (Auto) 3.85 Lymph # (Auto) 4.31 H Warrick # (Auto) 0.67 H Eos # (Auto) 0.39 Baso # (Auto) 0.07 Immature Gran # (Auto) 0.07 Sodium 138 Potassium 4.2 Chloride 104 Carbon Dioxide 30 Anion Gap 4 BUN 18 Creatinine 0.56 L Est Cr Clr Drug Dosing 77.8 Est GFR ( Amer) 102.1 Est GFR (Non-Af Amer) 88.1 BUN/Creatinine Ratio 32.1 H Glucose 109 H POC Glucose 104 H 138 H Calcium 8.7 Total Bilirubin 0.4 AST 17 ALT 18 Alkaline Phosphatase 94 Troponin I High Sens Total Protein 6.0 Albumin 3.5 Globulin 2.5 Albumin/Globulin Ratio 1.4 09/13/23 09/13/23 09/13/23 11:41 16:52 20:35 WBC RBC Hgb Hct MCV MCH MCHC RDW Std Deviation RDW Coeff of Atilio Plt Count MPV Immature Gran % (Auto) Neut % (Auto) Lymph % (Auto) Warrick % (Auto) Eos % (Auto) Baso % (Auto) Neut # (Auto) Lymph # (Auto) Warrick # (Auto) Eos # (Auto) Baso # (Auto) Immature Gran # (Auto) Sodium Potassium Chloride Carbon Dioxide Anion Gap BUN Creatinine Est Cr Clr Drug Dosing Est GFR ( Amer) Est GFR (Non-Af Amer) BUN/Creatinine Ratio Glucose POC Glucose 133 H 137 H 152 H Calcium Total Bilirubin AST ALT Alkaline Phosphatase Troponin I High Sens 2.7 Total Protein Albumin Globulin Albumin/Globulin Ratio Diagnostic Findings EKG - my reading - low voltage in several leads; NSR; no ST changes; no change from prior EKG PG Care Time/CCT Total # of Minutes Spent Total Time Spent with Patient: Total time spent is greater than 50% in coordination of care (as documented) at patient's floor/unit and/or counseling patient: Coding Level of Care Code 04678 SUB INP/OBS CARE 3/50MIN Diagnoses Urinary tract obstruction by kidney stone N20.0; N13.8 Urinary tract infection with hematuria, site unspecified N39.0; R31.9 Hematuria presence: with hematuria Urinary tract infection type: site unspecified Choledocholithiasis K80.50 Cognitive impairment R41.89 Vascular dementia F01.50 COPD exacerbation J44.1 Chest pain R07.9 Dehydration E86.0 History of deep venous thrombosis (DVT) of distal vein of right lower extremity Z86.718 Hyperlipidemia E78.5 Type 2 diabetes mellitus with diabetic polyneuropathy E11.42 Chronic pain G89.29 Abnormal CBC R79.89 History of CVA (cerebrovascular accident) Z86.73 Left hand pain M79.642 Abdominal distension R14.0 (2) UTI (urinary tract infection) Hematuria presence: with hematuria Urinary tract infection type: site unspecified Qualified Code(s): N39.0 - Urinary tract infection, site not specified; R31.9 - Hematuria, unspecified
[2023-09-13] MEDS: bisacodyL 10 MG SUPP PR ONE (17:58)
[2023-09-14] MEDS: traMADol HCL 50 MG TABLET PO STA (03:41)
--- NOTE | 2023-09-14 12:33 | XCELERA ---
[id number] [id number]
--- NOTE | 2023-09-14 15:02 | Electrocardiogram Report ---
Test Reason : Blood Pressure : / mmHG Vent. Rate : 078 BPM Atrial Rate : 078 BPM P-R Int : 168 ms QRS Dur : 068 ms QT Int : 384 ms P-R-T Axes : 020 -13 019 degrees QTc Int : 437 ms Poor data quality, interpretation may be adversely affected Normal sinus rhythm Inferior infarct (cited on or before 12-SEP-2023) Anterolateral infarct , age undetermined Abnormal ECG When compared with ECG of 12-SEP-2023 14:17, No significant change Confirmed by Tristan Moreno ([id number]) on 09/14/2023 3:01:36 PM Referred By: [facility] Confirmed By:Tristan Moreno
--- NOTE | 2023-09-14 16:50 | Hospitalist Progress Note ---
Date of Service September 14, 2023 Assessment & Plan (1) COPD exacerbation: Plan: 82 y/o woman resident of [facility] who was sent to ED with dyspnea and chest tightness. Had been under outpatient treatment for COPD exaxerbation with prednisone and bronchodilators. CXR wnl at time of admission. Respiratory BioFire panel negative. Completed course of steroids on 09/04, has done well since then. Remains on scheduled albuterol qid. Stop mucinex (2) Urinary tract obstruction by kidney stone: Plan: cystoscopy with right ureteral stent placement by Dr Anderson this admission. This was done 2nd to obstruction/hydronephrosis from a 9mm distal ureteral kidney stone. urine cx grew proteus. hematuria resolved with treatment of the UTI. definitive stone management will be arranged post-d/c by [facility]. if she develops stent pain can start flomax, pyridium etc- but thus far no stent/stone pain Rx UTI (was on rocephin, now keflex). day #9/10 of IV/PO abx. Plan 14d course (3) UTI (urinary tract infection): Plan: see above (4) Choledocholithiasis: Plan: incidentally a CBD stone was seen on CT a/p (CT scan had been obtained due to mild abd discomfort and prior history of kidney stones). she does not have a gall bladder. Cholecystectomy was performed at [facility] within the last 3-4 years - daughter uncertain of date. Daughter thinks her mother had an ERCP procedure? serial LFTs remain normal. daughter aware of both the kidney stone and the suspected CBD stone. [facility] consulted -- no urgent Rx needed; she has good appetite, normal LFTs, no GI symptoms. CBD stone likely chronic. Made referral to Orin Doss for consultation for this, consideration of EUS/ERCP. (5) Cognitive impairment: Plan: on MMSE (skipped writing a sentence and drawing complex figures as pt is left-handed and can't use that arm due to prior CVA). pt's daughter suggested her mother is close to baseline at this time. since completing that MMSE she has had no change in her overall mental status. MMSE had been done as daughter wanted to complete POA paperwork. However, service excellence concerned patient may not have capacity to complete the paperwork as she may not understand what she is signing. (6) Vascular dementia: Plan: MMSE - see above Does have prior h/o stroke (I'm assuming right sided MCA territory stroke or right sided basal ganglia stroke given her motor findings) I do not have any brain imaging to look at B12 level in May 2023 was <350 -- started PO replacement 1000mcg daily B1 level pending TSH 1.3 in 2022 (7) Chest pain: Plan: Had such prior to admission per the admission H & P - was described as chest tightness on presentation to ED and resolved by HD 1 with treatment of COPD exacerbation. EKG wnl. Troponins negative. She has intermittently complained of her chest a few more times. EKG repeated - no ischemic changes. Repeat troponin - again negative. TTE - nl LV, grade 1 diastolic dysfunction, mild conc LVH, nonsignificant valvular abnormalities. Overall reassuring. (8) Dehydration: Plan: Present on admission by report - now resolved. Eating well. (9) History of deep venous thrombosis (DVT) of distal vein of right lower extremity: Plan: Noted. Typically on Eliquis 5mg BID. Was placed on hold at time of admission due to gross hematuria. Hematuria resolved. Eliquis resumed 09/10 - no bleeding/hematuria since resumption. (10) Hyperlipidemia: Plan: Continue Atorvastatin LFTs wnl (11) Type 2 diabetes mellitus with diabetic polyneuropathy: Plan: Hgb A1c 6% on 08/26/23 Novolog SSI as needed BSGs well controlled at this time (12) Chronic pain: Plan: Pt describes neuropathic pain in feet Cont lyrica 50mg - changed to TID dosing so it is not dosed in middle of the night or early am Increase tramadol from 50mg BID to 50mg TID (per PDMP has been on tramadol for several years - likely has tolerance) Added lidocaine jelly prn to either foot Possibly improved no foot pain 09/13 (13) Abnormal CBC: Plan: smudge cells, lymphocytosis, etc - concerning for CLL 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 basal ganglia CVA? stroke occurred while living in [place] - those records are not available Cont Eliquis for secondary prevention cont statin (15) Left hand pain: Plan: due to neuropathy? if so, could be c-spine related, or due to prior stroke injury, vs other. I obtained EKG to ensure this pain was not a symptom of ischemia -- EKG w/o ischemic changes; no change from prior EKG highly unlikely to be ischemic sounds more neuropathic (16) Abdominal distension: Plan: likely due to constipation and slow GI transit due to bed-bound status -bowel program increased, having BMs this AM per nursing Plan PT, OT to be of limited benefit - she is bed-bound, hemiplegic on left, lift- dependent The patient needs a hospital bed for her home. She will be discharging to home with her daughter. The patient has a medical condition (stroke with resulting left-sided hemiplegia) that requires positioning of the body in ways not feasible with an ordinary bed. The patient also needs a evelyn lift. Patient is non-ambulatory at baseline. Patient needs to be transferred between bed and chair or wheelchair to commode and, without lift use, the patient otherwise would be confined to the bed. discussed with care coord - equipment has been delivered to her daughter;s home plan DC tomorrow, transport arranged Admission and Anticipated Discharge Date Admission Date: September 04, 2023 Subjective feels ok does want to go home, no chest pain/pressure, no SOB, no abd pain. Had BMs Physical Exam 2 Physical Exam: PHYSICAL EXAMINATION Last 24h vital signs reviewed, see documentation in flowsheet No change in physical exam 09/13- General: comfortable appearing, no distress, awake HEENT: Normocephalic, atraumatic, pupils round and equal, sclerae anicteric, no conjunctival injection, moist mucus membranes Lungs: Normal respiratory effort. CTAB without Heart: Regular rate and rhythm, no murmurs. No JVD Abdomen: Soft, nontender, no abdominal tenderness, nondistended. Bowel sounds present. Extremities: Warm, dry, well-perfused. No extremity edema. Neuro: Alert and oriented x self and basic situation but poor memory can't remember me from wednesday, face symmetric, moves 4 extremities spontaneously Psych: Normal affect and behavior Results & Data Results & Data Vital Signs (Past 12 Hours) Vital Signs Temp Pulse Pulse Resp BP Pulse Ox O2 Del Method 09/14/23 14:48 37.0 C 75 18 112/60 92 Room Air 09/14/23 07:35 36.4 C L 66 18 117/65 92 Room Air 09/14/23 07:19 65 15 95 Room Air FiO2 09/14/23 14:48 09/14/23 07:35 09/14/23 07:19 21 Laboratory Results 09/13/23 07:39 09/13/23 07:39 PG Care Time/CCT Total # of Minutes Spent Total Time Spent with Patient: Total time spent is greater than 50% in coordination of care (as documented) at patient's floor/unit and/or counseling patient: Coding Level of Care Code 08904 SUB INP/OBS CARE 2/35MIN Diagnoses COPD exacerbation J44.1 Urinary tract obstruction by kidney stone N20.0; N13.8 Urinary tract infection with hematuria, site unspecified N39.0; R31.9 Urinary tract infection type: site unspecified Hematuria presence: with hematuria Choledocholithiasis K80.50 Cognitive impairment R41.89 Vascular dementia F01.50 Chest pain R07.9 Dehydration E86.0 History of deep venous thrombosis (DVT) of distal vein of right lower extremity Z86.718 Hyperlipidemia E78.5 Type 2 diabetes mellitus with diabetic polyneuropathy E11.42 Chronic pain G89.29 Abnormal CBC R79.89 History of CVA (cerebrovascular accident) Z86.73 Left hand pain M79.642 Abdominal distension R14.0 (3) UTI (urinary tract infection) Urinary tract infection type: site unspecified Hematuria presence: with hematuria Qualified Code(s): N39.0 - Urinary tract infection, site not specified; R31.9 - Hematuria, unspecified
[2023-09-14] MEDS ORDERED: ALBUT/IPRATROP 3MG/0.5MG NEB 3 ML VIAL NEB PRN (16:53)
[2023-09-14] MEDS ORDERED: ALBUT/IPRATROP 3MG/0.5MG NEB 3 ML VIAL NEB SCH (19:00)
--- NOTE | 2023-09-15 16:26 | Discharge Summary ---
Date of Service September 15, 2023 Admission HPI Per Admitting Provider Ruthann is an 82 year old female with a PMH significant for T2DM with diabetic polyneuropathy, depression, previous CVA with baseline left-sided weakness, vascular dementia, GERD, DVT (now on Eliquis), insomnia, RA, chronic pain due to neuropathy in the BL LE's, and hyperlipidemia who presented to the [facility] ED on 09/04/23 via EMS from [facility] with complaints of chest pain/pressure and SOB. She remained stable in the ED. Labs were significant for a leukocytosis of 13 with neutrophil predominance of 6, high sen trop of 5, BNP of 210, and full respiratory biofire negative. Chest xray was read as negative for acute findings. ECG shows NSR without acute ST segment or T-wave changes. The patient was given 2 albuterol nebulizer treatments and 125 mg IV methylprednisolone. We were asked to admit the patient as the [facility] Department of [facility] will be doing an investigation into [facility] as they refused to give EMS any information regarding the patient as they did not think she needed to come to the ED. The patient is also refusing to go back to [facility]. At the time of the exam the patient was lying in bed in no acute distress. Unsure how reliable of a historian the patient is as she has a hx of Vascular Dementia. She tells me that she has been experiencing progressive SOB and chest pressure over the past "few" days. Denies chest pain, productive cough, hemoptysis, abd pain, vomiting, dysuria, hematuria, diarrhea, melena. When asked, she feels as thought her SOB and chest pressure have both improved significantly after the 2 DuoNeb treatments she received in the ED. I attempted to call both [facility] but was sent to the Nursing Loader Technician's voicemail. I called and spoke to the Patient's Daughter/POA (Anita Stillor [phone]). She tells me that the patient called her this am stating that she felt very SOB, had chest pressure, nausea, and wished to be evaluated at the Hospital. The patient's Daughter called [facility] who was refusing to send the patient for evaluation as they claimed she did not have any acute medical issues. The patient's Daughter is very frustrated with [facility] staff as she claims they have treated her mother poorly by ignoring her, calling her "retarted", and making the patient fearful for her safety. The patient's Daughter does NOT want the patient to be sent back to [facility] on discharge. Per review of the patient's med rec, she was started on a 5 day course of 40 mg PO Prednisone daily on 08/31/23 for her COPD symptoms. Principal Diagnosis Acute exacerbation of COPD, UTI and obstructing ureteral stone with hematuria Discharge Exam PHYSICAL EXAMINATION Last 24h vital signs reviewed, see documentation in flowsheet General: comfortable appearing, no distress, awake HEENT: Normocephalic, atraumatic, pupils round and equal, sclerae anicteric, no conjunctival injection, moist mucus membranes Lungs: Normal respiratory effort. CTAB without Heart: Regular rate and rhythm, no murmurs. No JVD Abdomen: Soft, nontender, no abdominal tenderness, nondistended. Bowel sounds present. Extremities: Warm, dry, well-perfused. No extremity edema. Neuro: Alert and oriented x self and basic situation but forgetful, face symmetric, LUE and LLE weakness from previous stroke Psych: Normal affect and behavior Discharge Data Allergies Allergy/AdvReac Type Severity Reaction Status Date / Time ibuprofen Allergy Unknown Unknown Unverified 09/04/23 17:30 Iodinated Contrast Media Allergy Unknown Unknown Unverified 09/04/23 17:30 iodine Allergy Unknown Unknown Unverified 09/04/23 17:30 metformin Allergy Unknown Unknown Unverified 09/04/23 17:30 naproxen Allergy Unknown Unknown Unverified 09/04/23 17:30 Penicillins Allergy Unknown Unknown Unverified 09/04/23 17:30 pregabalin Allergy Unknown Unknown Unverified 09/04/23 17:30 Consultations 09/04/23 18:18 ED Decision to Admit Stat 09/08/23 08:58 Consult Patient Rep [Consult Patient Services] Routine 09/08/23 19:21 Consult Urology Routine 09/09/23 12:27 Consult Gastroenterology Routine 09/11/23 08:08 Consult [facility] behavioral health specialist Routine 09/14/23 16:39 Consult [facility] behavioral health specialist Routine 09/14/23 16:50 Consult [facility] behavioral health specialist Routine Procedures Performed Operation Date: 09/09/23 11:25 Actual Procedures p Cystoscopy, Retrograde Pyelogram, Right Ureteral Stent Placement(Not Applicable) - Jesus Anderson MD Ordered Studies 09/08/23 13:40 CT abd pelvis wo con Routine 09/09/23 FL retrograde includes kub Routine Chest X-Ray 09/04/23 12:45 SINGLE VIEW CHEST CLINICAL HISTORY: Atypical chest pain FINDINGS: An AP, portable, upright chest radiograph is compared to study dated 05/07/2023. The examination is degraded by portable technique and patient rotation. The cardiomediastinal silhouette is top normal for projection noting atherosclerotic calcification of the thoracic aorta. Chronic interstitial thickening is similar to previous. There is mild bibasilar scarring/atelectasis. The lungs and pleural spaces are otherwise clear. No pneumothorax is seen. The skeletal structures are osteopenic. The bony thorax is grossly intact. Degenerative change is noted in the shoulders. IMPRESSION: No acute cardiopulmonary abnormality. ACT 112: Negative or not required by law. Electronically signed by: Ash Minor M.D. 09/04/2023 1:23 PM Abdomen/Pelvis CT 09/08/23 13:[address] WITHOUT CONTRAST CT DOSE: 1226.67 mGy.cm HISTORY: Acute hematuria with right-sided flank pain gross hematuria, ?stone, other pathology? TECHNIQUE: Multiaxial CT images of the abdomen and pelvis were performed without contrast. A dose lowering technique was utilized adhering to the principles of ALARA. COMPARISON STUDY: None. FINDINGS: Moderate coronary artery calcifications. Mild right hemidiaphragmatic elevation. Mild subsegmental bibasilar atelectasis. The study is degraded by respiratory motion artifact and upper extremity positioning. The unenhanced spleen, atrophic pancreas and adrenal glands are unremarkable. Cholecystectomy with biliary ductal dilation. The common bile duct measures up to 1.3 cm. There is a considerable amount of intrahepatic and extrahepatic pneumobilia. There is an 8 mm stone within the common bile duct on image 117 series 3. There are a few subcentimeter indeterminate likely benign hypodensities within the liver. There is mild right-sided hydroureteronephrosis with urothelial thickening secondary to an obstructing 8 mm calculus of the distal right ureter a few centimeters upstream to the ureterovesicular junction. There are a few nonobstructing calculi right kidney measuring up to 4 mm. Probable complex cyst of the left kidney measuring 9 mm. Pelvic floor relaxation. Urinary bladder wall thickening with partial distention. Atherosclerosis of the aorta. No lymphadenopathy. No bowel obstruction or bowel wall thickening. Duodenal diverticulum. Colonic diverticulosis. Mild to moderate colonic fecal retention. Appendectomy. Diastases recti. Degenerative changes of the spine, pelvis and hips. Ill-defined sclerotic foci within the bilateral greater trochanters are indeterminate however are likely benign based on symmetry. IMPRESSION: 1. Mild right-sided hydroureteronephrosis secondary to an obstructing 9 mm calculus of the distal right ureter. 2. Right nephrolithiasis. 3. Cholecystectomy with pneumobilia, intrahepatic and extrahepatic biliary ductal dilation. Choledocholithiasis also noted. Follow-up with GI recommended. 4. Colonic diverticulosis. 5. Additional findings as above. ACT 112: Negative or not required by law. The above report was generated using voice recognition software. It may contain grammatical, syntax or spelling errors. Electronically signed by: Rakesh Pisano M.D. 09/08/2023 3:06 PM Retrograde Pyelogram 09/09/23 00:00 FL retrograde includes kub CLINICAL HISTORY: RIGHT STENT PLACEMENT COMPARISON STUDY: CT of the abdomen and pelvis September 08, 2023. FLUOROSCOPY TIME: 11.2 seconds. Ka, r: 1.87 mGy FLUOROSCOPIC IMAGES: 4 FINDINGS: Fluoroscopy was provided during right retrograde pyelogram. Right ureter is partially opacified. The collecting system is not visualized. No ureteral stent is identified on these fluoroscopic images. IMPRESSION: Fluoroscopy provided during right retrograde exam. ACT 112: Negative or not required by law. Electronically signed by: Rigo Harden M.D. 09/09/2023 7:48 PM 09/13/23 07:39 09/13/23 07:39 Hospital Course (1) COPD exacerbation: 82 y/o woman with history of remote stroke, (former) resident of [facility] who presented to ED with dyspnea and chest tightness. Had been under outpatient treatment for COPD exacerbation with prednisone and bronchodilators. CXR wnl at time of admission. Respiratory BioFire panel negative. Treated with prednisone and bronchodilators. Completed course of steroids on 09/04, has done well since then. Resolved. continue control inhalers and PRN albuterol for COPD (2) Urinary tract obstruction by kidney stone: Had evidence of UTI with hematuria shortly after admission CT-abd/pelvis showed obstruction/hydronephrosis from a 9mm distal ureteral kidney stone. cystoscopy with right ureteral stent placement by Dr Anderson this admission. Follow up with urology for stone treatment and stent exchange. Tolerated well without stent pain. urine cx grew proteus. hematuria resolved with treatment of the UTI. Rx UTI (was on rocephin, now keflex). continue keflex to complete total 14d course (3) UTI (urinary tract infection): see above (4) Choledocholithiasis: incidentally a CBD stone was seen on CT a/p (CT scan had been obtained due to mild abd discomfort and prior history of kidney stones). she does not have a gall bladder. Cholecystectomy was performed at [facility] within the last 3-4 years - daughter uncertain of date. Daughter thinks her mother had an ERCP procedure? serial LFTs remain normal. daughter aware of both the kidney stone and the suspected CBD stone. [facility] GI consulted -- no urgent Rx needed; she has good appetite, normal LFTs, no GI symptoms. CBD stone likely chronic. Made referral to Orin Doss for consultation for this, consideration of EUS/ERCP. (5) Cognitive impairment: on MMSE (skipped writing a sentence and drawing complex figures as pt is left-handed and can't use that arm due to prior CVA). pt's daughter suggested her mother is close to baseline at this time. since completing that MMSE she has had no change in her overall mental status. MMSE had been done as daughter wanted to complete POA paperwork. However, service excellence concerned patient may not have capacity to complete the paperwork as she may not understand what she is signing. (6) Vascular dementia: MMSE - see above Does have prior h/o stroke (I'm assuming right sided MCA territory stroke or right sided basal ganglia stroke given her motor findings) I do not have any brain imaging to look at B12 level in May 2023 was <350 -- started PO replacement 1000mcg daily B1 level pending TSH 1.3 in 2022 (7) Chest pain: Had such prior to admission per the admission H & P - was described as chest tightness on presentation to ED and resolved by HD 1 with treatment of COPD exacerbation. EKG wnl. Troponins negative. She has intermittently complained of her chest a few more times. EKG repeated - no ischemic changes. Repeat troponin - again negative. TTE - nl LV, grade 1 diastolic dysfunction, mild conc LVH, nonsignificant valvular abnormalities. Overall reassuring, unlikely cardiac pain. (8) Dehydration: Present on admission by report - now resolved. Eating well. (9) History of deep venous thrombosis (DVT) of distal vein of right lower extremity: Noted. Typically on Eliquis 5mg BID. Was placed on hold at time of admission due to gross hematuria. Hematuria resolved. Eliquis resumed 09/10 - no bleeding/hematuria since resumption. (10) Hyperlipidemia: Continue Atorvastatin LFTs wnl (11) Type 2 diabetes mellitus with diabetic polyneuropathy: Hgb A1c 6% on 08/26/23 Diet controlled. Did not need insulin in hospital (12) Chronic pain: Pt describes neuropathic pain in feet Cont lyrica 50mg - changed to TID dosing tramadol 50mg BID (13) Abnormal CBC: smudge cells, lymphocytosis, etc - concerning for CLL 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 basal ganglia CVA? stroke occurred while living in [place] - those records are not available Cont Eliquis for secondary prevention cont statin (15) Left hand pain: due to neuropathy? if so, could be c-spine related, or due to prior stroke injury, vs other. I obtained EKG to ensure this pain was not a symptom of ischemia -- EKG w/o ischemic changes; no change from prior EKG highly unlikely to be ischemic sounds more neuropathic (16) Abdominal distension: likely due to constipation and slow GI transit due to bed-bound status -bowel program increased, now having BMs Plan PT, OT to be of limited benefit - she is bed-bound, hemiplegic on left, lift- dependent discharged home with her daughter, home hospital bed, lift arranged and delivered her daughter plans to establish primary care locally in [facility] Total Time Total Time Spent Total Time Spent (In Minutes): I personally spent: 50 minutes today on clinical care activities including: reviewing chart notes and vital signs reviewing labs discussion with elderly caregiver examining and counseling the patient writing orders, discharge prescriptions, discharge instructions documentation Discharge Plan Discharge Items Patient Disposition: Home - Self-Care Reason For Visit: REACTIVE AIRWAY DISEASE, UNSAFE AT CURRENT PLACE O Discharge Diagnosis: Acute exacerbation of COPD, Hematuria due to UTI and obstructing ureteral stone Activity: Resume your previous activity Non-emergency contact: Primary Care Provider Call non-emergency contact if: you have any medication questions, your symptoms worsen and you have a fever Follow-up/Referrals: Carolyn Hill CRNP [Nurse Practitioner] - 09/17/23 3:40 pm (Follow up appointment with Carolyn Hill 09/17/23 at 3:40, then new patient appointment with Carolyn Hill 10/05/23 at 9:00) Jesus Anderson MD [Physician] - Senyd Ribeiro MD [Physician] - (Call placed to office on 09/10/23. They are not able to give an appointment in their system right now. They are aware we need something for approximately 2 weeks. They will be calling cornelia Howard with an appointment for follow-up with GI at [facility].) Diet: Carb Consistent or DM2 Diet Comment: minced and moist Addtl Attending Provider Instructions: Follow up with urologist for stone and ureteral stent - typically a stone and stent exchange procedure is scheduled within several weeks or a month -complete the course of antibiotics for UTI - four more days finishes a 2 week total course Follow up with belt glass sander for dilated bile duct - the procedure to evaluate this is called EUS/ERCP, they may recommend imaging study first. We made referral to GI at [facility]. 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 Follow up with hematology-oncology, referral was made. Most likely the oncologist will just recommend monitoring this. Vitamin B12 level was low - continue taking 1000 mcg daily - this is available over the counter Vitamin B1 (thiamine) level is pending - this will take 1-2 weeks to result. If the level is low it can be treated with oral B1 (thiamine) 200 mg twice a day for a month, then 100 mg once a day thereafter. This is available over the counter. Low vitamin B levels can contribute to nerve pain and cognitive changes, among other problems For nerve pain in feet, pregabalin and tramadol were increased to three times a day. These can be decreased to twice a day if pain is bothering you less outside of the hospital These medications have the potential to cause sleepiness/grogginess and mental status changes Echo (heart ultrasound) was reassuring and EKGs, cardiac markers were negative for heart attack. Chest pressure was initially related to COPD exacerbation. COPD exacerbation has resolved. Pending Studies at Discharge: Yes Stand-Alone Forms: My [facility], Pain - Opioid Pain Management, Smoking Cessation Medications and DC Order Prescriptions: New cephalexin 500 mg Capsule 500 mg PO QID Qty: 10 0RF umeclidinium 62.5 mcg/actuation Blister With Device 1 inh inhalation DAILY Qty: 30 0RF albuterol sulfate 90 mcg/actuation aerosol powdr breath activated 2 inh inhalation Q4H PRN (Reason: shortness of breath or wheezing) Qty: 1 0RF pantoprazole 40 mg Tablet,Delayed Release (Dr/Ec) 40 mg PO DAILY Qty: 30 0RF sennosides [Senokot] 8.6 mg Tablet 17.2 mg PO QAM Qty: 0 0RF Rx Instructions: buy over the counter fluticasone propion-salmeterol 113-14 mcg/actuation aerosol powdr breath activated 1 inh inhalation BID Qty: 1 0RF cyanocobalamin (vitamin B-12) 500 mcg Tablet 1,000 mcg PO QAM Qty: 0 0RF Rx Instructions: buy over the counter Continued acetaminophen 325 mg Tablet 650 mg PO Q6 MDD 3g PRN (Reason: mild pain scale 1-10) Qty: 1 0RF Rx Instructions: over the counter polyethylene glycol 3350 [Miralax] 17 gram Powder In Packet 17 g PO BID Qty: 100 0RF Rx Instructions: buy over the counter atorvastatin 10 mg tablet 10 mg PO DAILY Qty: 30 0RF citalopram 10 mg tablet 10 mg PO DAILY Qty: 30 0RF tramadol 50 mg tablet 50 mg PO BID Qty: 60 0RF ferrous sulfate [FeroSul] 325 mg (65 mg iron) tablet 325 mg PO DAILY Qty: 30 0RF lorazepam 1 mg tablet 0.5 mg PO DAILY Qty: 14 0RF pregabalin 50 mg capsule 50 mg PO Q8 Qty: 90 0RF diclofenac sodium 1 % gel 1 ea TOPICAL TID Qty: 100 0RF Rx Instructions: apply to feet for pain, buy over the counter melatonin 5 mg Tablet 5 mg PO HS Qty: 1 0RF Rx Instructions: buy over the counter Eliquis 5 mg tablet 5 mg PO BID Qty: 60 0RF magnesium chloride 64 mg magnesium Tablet 128 mg PO DAILY Qty: 1 0RF Rx Instructions: buy over the counter Discontinued acetaminophen 325 mg Tablet 650 mg PO Q6 MDD 3g PRN (Reason: temp>101) ipratropium-albuterol 0.5 mg-3 mg(2.5 mg base)/3 mL solution for nebulization 3 ml INHALATION Q6 prednisone 20 mg Tablet 40 mg PO DAILY Rx Instructions: End 09/05/2023 guaifenesin 100 mg/5 mL Liquid 200 mg PO Q4H PRN (Reason: Cough) omeprazole 20 mg capsule,delayed release(DR/EC) 20 mg PO DAILY tiotropium bromide [Spiriva with HandiHaler] 18 mcg capsule, w/inhalation device 2 cap INHALATION DAILY Discharge Orders: Discharge Order (Routine); Ordered 09/15/23 Ordered By: Mary Valenzuela/Other Patient Handouts: Understanding Type 2 Diabetes Admission Data Admit Date/Time: 09/04/23 18:12 Attending Provider: Mary Swartz Admit Provider: Soham Calvo Primary Care Provider: Charlee Abebe Other Providers: Soham Calvo; Zbigniew Swann; Sergo Adan Other Interventions: Discharge Summary Assessment (RN) Last Done: 09/15/23 11:36 Coding Level of Care Code 97657 INP/OBS DISCH >30 MIN Diagnoses COPD exacerbation J44.1 Urinary tract obstruction by kidney stone N20.0; N13.8 Urinary tract infection with hematuria, site unspecified N39.0; R31.9 Urinary tract infection type: site unspecified Hematuria presence: with hematuria Choledocholithiasis K80.50 Cognitive impairment R41.89 Vascular dementia F01.50 Chest pain R07.9 Dehydration E86.0 History of deep venous thrombosis (DVT) of distal vein of right lower extremity Z86.718 Hyperlipidemia E78.5 Type 2 diabetes mellitus with diabetic polyneuropathy E11.42 Chronic pain G89.29 Abnormal CBC R79.89 History of CVA (cerebrovascular accident) Z86.73 Left hand pain M79.642 Abdominal distension R14.0
== END 2023-09-15 15:16 | disposition home or self-care (01) | DRG 988 ==
LOC: ED 12:28 → SUATTDRO 18:12 → 3N 18:12

== ENCOUNTER 2024-04-08 21:46 | Inpatient (IN) ==
--- OUTSIDE RECORDS SUMMARY | 2024-04-08 21:55 | External Medical Summary | Summary of Care ---
Author Name Unknown Organization [facility] Address [address] [facility] [place] [address] Phone [phone] Care Team Providers Care Parts Finisher Name Role Phone Lolis Tam DO Primary Care Provider +1- [phone] Reason for Visit * Reason Onset Date Comments FYI 04/05/202404/07 LM/Home ho spice recert Encounter Details Date Type Department Care Team (Late st Contact Info) Description 04/05/2024 Telephone Family Practice [facility], [place] [address] [facility] [place] [address] Lolis Tam DO [address] [facility] [place] [address] FYI (04/07 LM/Home hospice recert) Allergies Active Allergy Reactions Criticality Noted Date Comments Naproxen Sodium 11/03/2017 Ibuprofen 11/03/2017 Ibuprofen Unknown 02/23/2017 Other reaction(s): Other See Comments shakiness Iodides 07/15/2006 Ivp Dye 07/15/2006 Metformin 06/18/2021 Other reaction(s): Other (see comments) "Feels like I'm going to " Naproxen 02/23/2017 Other reaction(s): Other See Comments shakiness Penicillins Rash Low 07/15/2006 hives Other reaction(s): Chills Penicillins 11/03/2017 Pregabalin 06/18/2021 Other reaction(s): Confusion documented as of this encounter (statuses as of 04/07/2024) Medications acetaminophen (TYLENOL) 325 MG Tablet Take 325 mg by mouth every 6 hours as needed. Active albuterol sulfate (PROVENTIL) (2.5 MG/3ML) 0.083% nebulizer solution Inhale 1 Vial via nebulizer in the morning and 1 Vial before bedtime. Active atorvaSTATin (LIPITOR) 10 MG Tablet Take 1 Tablet by mouth in the morning. Active bisacodyl (DULCOLAX) 10 MG suppository Administer 10 mg into the rectum every 3 days. Active Sodium Phosphates (FLEET ADULT) 7-19 GM/118ML enema Administer 1 Enema into the rectum every 3 days. Active levETIRAcetam (KEPPRA) 500 MG Tablet Take 1 Tablet by mouth in the morning and 1 Tablet before bedtime. Active lisinopril (PRINIVIL) 5 MG Tablet Take 1 Tablet by mouth in the morning. Active metFORMIN (GLUCOPHAGE) 500 MG Tablet Take 500 mg by mouth daily. 1/2 tab once daily Active milk of magnesia (MILK OF MAGNESIA) 400 MG/5ML suspension Take by mouth every 3 days. Active polyethylene glycol 3350 (MIRALAX) 119 gram POWD Take 17 g by mouth 2 times a day. Active dextromethorphan-q uinidine (NUEDEXTA) 20-10 MG CAPS Take by mouth 2 times a day. Active omeprazole (PRILOSEC) 20 MG CPDR Take 1 Capsule by mouth in the morning and 1 Capsule before bedtime. Active tiotropium bromide-olodaterol (STIOLTO RESPIMAT) 2.5-2.5 MCG/ACT Inhale 2 Puffs by mouth in the morning. Active Estradiol 0.1 MG/GM Vaginal Cream Administer into the vagina 1 g once a day on Wednesday and Wednesday only . 42.5 g 12 12/24/19 22 Active Albuterol Sulfate (2.5 MG/3ML) 0.083% Inhalation Nebulization Solution (Proventil) Inhale via nebulizer 1 Vial every 4 hours as needed for Wheezing or Shortness of Breath. 360 mL 11 02/25/20 22 Active Baclofen 10 MG Oral Tablet (Lioresal) Take by mouth 1 Tablet in the morning. Do not start before February 25, 2022. 30 Tablet 3 02/26/20 Active Additional Information Patient not taking.Reported on 09/28/2023 Docusate Sodium 100 MG Oral Capsule (Colace) Take by mouth 1 Capsule in the morning AND 1 Capsule before bedtime. 10 Capsule 02/25/20 Active Lisinopril 2.5 MG Oral Tablet (Prinivil) Take by mouth 1 Tablet in the morning. Do not start before February 25, 2022. 30 Tablet 3 02/26/20 Active Magnesium Chloride 64 MG Oral Tablet Delayed Release (Mag-64) Take by mouth 2 Tablets in the morning. Do not start before February 25, 2022. 30 Tablet 3 02/26/20 Active Nystatin 169297 UNIT/GM External Powder (Nystop) Apply topically to affected area 2 times a day . Apply to excoriated area 15 g 02/25/20 Active Ondansetron 4 MG Oral Tablet Disintegrating (Zofran) Place on tongue 1 Tablet every 8 hours as needed for Nausea (when no iv). dissolve on tongue. 20 Tablet 02/25/20 Active Simvastatin 20 MG Oral Tablet (Zocor) Take by mouth 1 Tablet in the evening. 30 Tablet 3 02/25/20 Active Additional Information Patient not taking.Reported on 09/28/2023 Trolamine Salicylate 10 % External Cream (Aspercreme Original) Apply to feet and toes one to two times daily 170 g 3 02/25/20 Active Famotidine 20 MG Oral Tablet (Pepcid) Take by mouth 1 Tablet in the morning. 30 Tablet 3 02/25/20 Active Additional Information Patient not taking.Reported on 09/28/2023 Gabapentin 300 MG Oral Capsule (Neurontin)Indicat ions:Peripheral polyneuropathy Take by mouth 1 Capsule in the morning AND 1 Capsule at noon AND 1 Capsule before bedtime. 90 Capsule 5 02/25/20 Active Acetaminophen 325 MG Oral Tablet (Tylenol) Take by mouth 3 Tablets every 6 hours as needed for Pain, Mild or Pain, Moderate. 30 Tablet 02/25/20 Active QUEtiapine Fumarate 25 MG Oral Tablet (SEROquel) Take by mouth 0.5 Tablets before bedtime. 30 Tablet 3 02/25/20 Active Polyethylene Glycol 3350 17 GM Oral Packet (Miralax) Take by mouth 1 Packet in the morning AND 1 Packet before bedtime. 14 Each 02/25/20 Active traMADol HCl 50 MG Oral Tablet (Ultram) Take by mouth 0.5 Tablets every 6 hours as needed for Pain, Moderate or Pain, Severe. 20 Tablet 02/25/20 Active Eliquis 5 MG Oral Tablet Take 1 Tablet by mouth in the morning and 1 Tablet before bedtime. 60 Tablet 09/27/19 24 Active Pantoprazole Sodium 20 MG Oral Tablet Delayed Release (Protonix) Take 1 Tablet by mouth in the morning. Active Vitamin B-12 100 MCG Oral Tablet (vitamin B-12) Take 1 Tablet by mouth in the morning. Active Citalopram Hydrobromide 20 MG Oral Tablet (CeleXA) Take 1 Tablet by mouth in the morning. Active LORazepam 0.5 MG Oral Tablet (Ativan) Take 1 Tablet by mouth every 6 hours as needed. Active Pregabalin 100 MG Oral Capsule (Lyrica) Take 1 Capsule by mouth in the morning and 1 Capsule before bedtime. Active Melatonin 3 MG Oral Tablet Disintegrating Take by mouth. Active Magnesium 100 MG Oral Capsule Take 1 Capsule by mouth in the morning. Active documented as of this encounter (statuses as of 04/07/2024) Active Problems Problem Noted Date Diagnosed Date Acute cystitis without hematuria 02/16/2022 COVID-19 02/04/2022 Other constipation 01/15/2022 Unable to care for self 01/08/2022 Bedridden 01/08/2022 H/O deep vein thrombophlebitis of lower extremit y 01/08/2022 Chest pain 01/08/2022 Cerebrovascular disease, arteriosclerotic, post- stroke 11/27/2021 Peripheral polyneuropathy 11/27/2021 Lower leg DVT (deep venous thromboembolism), acu te, left 06/18/2021 Tobacco use disorder 07/27/2007 Abnormal results of liver function studies 11/15 Esophageal reflux 07/15/2006 Dyslipidemia, goal to be determined HTN, goal below 140/90 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 (Adult - for ages 18 years and over) Not on file 11/02/2023 Is your family able to pay t he heat, water, or electric bill? (Household - for ages 0-17 years) Not on file 11/02/2023 Does your family have access to good internet? (Household - for ages 0-17 years) Not on file 11/02/2023 Social Connections Answer Date Recorded How often do you feel lonely or isolated from those around you? (Adult - for ages 18 years and over) Not on file 11/02/2023 Comments No Sex and Gender Information Value Date Recorded Sex Assigned at Not on file Legal Sex Female 6:28 AM EST Gender Identity Not on file Sexual Orientation Not on file Occupation Industry Job Start Date Job End Date SSI for back prob Not on file Not on file Not on wu e documented as of this encounter Functional Status * Are you deaf or do you have serious difficulty hearing? Answer Date of Assessment Author No 01/08/2022 6:38 PM Sy Ramos RN * Are you blind or do you have serious difficulty seeing, even when wearing glasses? Answer Date of Assessment Author No 01/08/2022 6:38 PM Sy Ramos RN * Do you have serious difficulty walking or climbing stairs? (5 years old or older) Answer Date of Assessment Author Yes 01/08/2022 6:38 PM Sy Ramos RN * Do you have difficulty dressing or bathing? (5 years old or older) Answer Date of Assessment Author Yes 01/08/2022 6:38 PM Sy Ramos RN * Because of a physical, mental, or emotional condition, do you have difficulty doing errands alone such as visiting a doctors office or shopping? (15 years old or older) Answer Date of Assessment Author No 01/08/2022 6:38 PM Sy Ramos RN documented as of this encounter Mental Status * Because of a physical, mental, or emotional condition, do you have serious difficulty concentrating, remembering, or making decisions? (5 years old or older) Answer Entry Date Author No 01/08/2022 6:38 PM EDT Sy Singh RN documented in this encounter Miscellaneous Notes * Telephone Encounter - Alma Rosa Jay OSA - 04/07/2024 9:33 AM EST Spoke to [facility]. Obtained a new number. Viktoria also sts pt is bed bound. She is asking if appt can be done as a video visit and sts that if pt would have to be dc from hospice, pt would benefit from home health as she has an indwelling ng. LMOM to schedule. * Telephone Encounter - Rhiannon Acosta OSA - 04/06/2024 12:53 PM EST Tried to call pt. says "has calling restrictions" and not able to leave message. states it's no longer in service. * Telephone Encounter - Lisa Brown LPN - 04/06/2024 12:23 PM EST Please assist with scheduling. * Telephone Encounter - Lolis Tam DO - 04/06/2024 12:19 PM EST Patient has only been seen once since 2021 as a new patient Will need to be seen in office * Telephone Encounter - Tanja Tsai LPN - 04/06/2024 11:07 AM EST Please advise * Telephone Encounter - Nancy Pedersen OSA - 04/05/2024 4:34 PM EST Viktoria calling from [facility] to advise Dr. Tam that Pt is up for re certification of home hospice up until 05/02/24. However, she states it seems Pt will be discharged from their services at any time up to 05/02. She states Pt has not had a significant amount of decline and is no longer a candidate for home hospice care unless Dr. Tam deems otherwise after face to face evaluation;in which case new referral would be required. Phone number for [facility] is [phone] documented in this encounter Plan of Treatment Scheduled Procedures Name Priority Associated Diagnoses Date/Ti me ENDOSCOPIC RETROGRADE CHOLANGIOPANCREATOGRAPHY (ERCP) DIAGNOSTIC Recall Choledocholithiasis Health Maintenance Due Date Last Done Comments DXA Scan 1942 Depression Screening 1954 Albumin/Creatinine Ratio 1960 Alpha-1 Antitrypsin 1960 O2 ASSESSMENT COMPLETED IN PAST YEAR FOR COPD 1960 DTap/Tdap Vaccines (1 - Tdap) 1961 Zoster Vaccines (1 of 2) 1992 *COPD SEVERITY VERIFIED BY PFT 08/02/2021 *SPIROMETRY ONCE FOR ASTHMA-ADULT 04/09/2022 COVID-19 Vaccine ( - season) 2024 06/15/2020, 05/25/2020 Influenza Vaccine (FLU shot) (#1) 2024 02/19/2023, 02/21/2021, 03/29/2020 GFR 09/12/2024 09/13/2023, 01/2022, 02/18/2022, Additional history exists Pneumococcal Vaccine: 65+ Years Completed 05/12/2023, 09/30/2022, 11/01/2020, Additional history exists HPV (Gardasil) Vaccine Aged Out No lo nger eligible based on patient's age to complete this topic Hepatitis B Vaccine Aged Out No longe r eligible based on patient's age to complete this topic MENINGOCOCCAL (MENACTRA/MENVEO) Aged Out No longer eligible based on patient's age to complete this topic documented as of this encounter Medical Devices Not on filedocumented as of this encounter Advance Directives * Full Code (Latest Code Status on File) Date Activated Date Inactivated Comments 01/08/2022 6:10 PM 02/24/2022 6:34 PM This order reflects the patients wishes and were consensually agreed upon. Question Answer Comments Discussion of Advance Directives occurred with: Patient Care Teams Parts Finisher Relationship Specialty Start Date End Date Lolis Tam DO [address] [facility] [place] [address] PCP - General Family Medicine 08/13/21 documented as of this encounter
--- OUTSIDE RECORDS SUMMARY | 2024-04-08 21:55 | External Medical Summary | Summary of Care ---
Author Name Unknown Organization [facility] Address [address] [facility] [place] [address] Phone [phone] Care Team Providers Care Cook At [employer] Name Role Phone Lolis Tam DO Primary Care Provider +1- [phone] Reason for Visit * Reason Onset Date Comments FYI 04/05/2024 Encounter Details Date Type Department Care Team (Late st Contact Info) Description [facility] [address] [facility] [place] [address] Lolis aTm DO [address] [facility] [place] [address] FYI Allergies Active Allergy Reactions Criticality Noted Date [...] as of this encounter (statuses as of 04/06/2024) Medications acetaminophen (TYLENOL) 325 MG Tablet Take [...] February 25, 2022. 30 Tablet 3 02/26/20 22 Active Additional Information Patient not taking.Reported on [...] 2022. 30 Tablet 3 02/26/20 Active Nystatin 159619 UNIT/GM External Powder (Nystop) Apply topically to [...] Moderate or Pain, Severe. 20 Tablet 02/25/20 22 Active Eliquis 5 MG Oral Tablet Take [...] as of this encounter (statuses as of 04/06/2024) Active Problems Problem Noted Date Diagnosed Date [...] as of this encounter (statuses as of 04/06/2024) Social History Tobacco Use Types Packs/Day Years [...] Entry Date Author No 01/08/2022 6:38 PM Sy Ramos RN documented in this encounter Miscellaneous Notes * Telephone Encounter - Lisa Brown LPN [...] 04/05/2024 4:34 PM EST Viktoria calling from [facility] to advise Dr. Tam that [...] required. Phone number for [facility] is [phone] documented in this encounter Plan of Treatment [...] ONCE FOR ASTHMA-ADULT 04/09/2022 COVID-19 Vaccine ( season) 2024 06/15/2020, 05/25/2020 Influenza Vaccine (FLU [...] Advance Directives occurred with: Patient Care Teams Cook At [employer] Relationship Specialty Start Date End Date Lolis Tam DO [address] [facility] [place] [address] PCP - General Family Medicine 08/13/21 documented as of this encounter
--- OUTSIDE RECORDS SUMMARY | 2024-04-08 21:55 | External Medical Summary | Summary of Care ---
Author Name Unknown Organization [facility] Address [address] [facility] [place] [address] Phone [phone] Care Team Providers Care Mold Cleaning And Storage Supervisor Name Role Phone Lolis Tam DO Primary Care Provider +1- [phone] Reason for Visit * Reason Onset Date Comments FYI 04/05/202404/06 tried to c all pt/[id number] Encounter Details Date Type Department Care Team (Late st Contact Info) Description [facility]/05[facility] [address] [facility] [place] [address] Lolis Tam DO [address] [facility] [place] [address] FYI (04/06 tried to call pt/[id number]-[id number]) Allergies Active Allergy Reactions Criticality Noted Date [...] 2022. 30 Tablet 3 02/26/20 Active Nystatin 863968 UNIT/GM External Powder (Nystop) Apply topically to [...] 1 Packet before bedtime. 14 Each 02/25/20 22 Active traMADol HCl 50 MG Oral Tablet [...] encounter Miscellaneous Notes * Telephone Encounter - Rhiannon Acosta OSA [...] 04/05/2024 4:34 PM EST Viktoria calling from [facility] to advise Dr. Tam that [...] required. Phone number for Family [facility] is [phone] documented in this encounter Plan of Treatment [...] 2024 02/19/2023, 02/21/2021, 03/29/2020 GFR 09/12/2024 09/13/2023, 10/0 01/2022, 02/18/2022, Additional history exists Pneumococcal Vaccine: [...] Advance Directives occurred with: Patient Care Teams Mold Cleaning And Storage Supervisor Relationship Specialty Start Date End Date Lolis Tam DO [address] [facility] [place] [address] PCP - General Family Medicine 08/13/21 documented as of this encounter
--- OUTSIDE RECORDS SUMMARY | 2024-04-08 21:55 | External Medical Summary | Summary of Care ---
Author Name Unknown Organization [facility] Address [address] [place] [facility] [place] [address] Phone [phone] Care Team Providers Care Automatic Grinding Machine Operator Name Role Phone Lolis Tam DO Primary Care Provider +1- [phone] Reason for Visit * Reason Onset Date Comments FYI 04/05/2024 Encounter Details Date Type Department Care Team (Late st Contact Info) Description 04/05/2024 [facility] [address] [facility] [place] [address] Lolis Tam DO [address] [place] [address] FYI Allergies Active Allergy Reactions Criticality [...] 2022. 30 Tablet 3 02/26/20 Active Nystatin 755311 UNIT/GM External Powder (Nystop) Apply topically to [...] of Assessment Author No 01/08/2022 6:38 PM Triston Ramos RN * Are you blind or [...] 04/05/2024 4:34 PM EST Viktoria calling from [facility] to advise Dr. Tam that [...] required. Phone number for Family [facility] is [phone] documented in this encounter Plan of Treatment [...] Advance Directives occurred with: Patient Care Teams Automatic Grinding Machine Operator Relationship Specialty Start Date End Date Lolis Tam DO [address] [facility] [place] [address] PCP - General Family Medicine 08/13/21 documented as of this encounter
--- OUTSIDE RECORDS SUMMARY | 2024-04-08 21:55 | External Medical Summary | Continuity Of Care Document ---
Author Name Unknown Address [address] [address] Organization [facility] [place] () Care Team Providers Care Alloy Weigher Name Role Phone DO Woody Amy Primary Care Provider [phone] Allergies Allergy Reaction Start Date End Date Status LORAZEPAM Active PENICILLINS Hives, Rash Active Medications Medication Instructions Dosage Start Date End Date Status Order Date Drug Code Frequency Route of Admin Diagnosis Code Substitutions Allowed Tubersol 5 tub. unit/0.1 mL intradermal injection solution [Tuberculin PPD] 0.1 mL Intradermal 1 time For PPD Step 1 GIVE on Day 1 and read results Day 3 0.1 mL 03/21 Inactiv e 2023 41877 10622 0 1 time Intrad ermal False Tubersol 5 tub. unit/0.1 mL intradermal injection solution [Tuberculin PPD] 0.1mL Intradermal 1 time For PPD 2nd Step Give 2nd Step PPD Day 1 and Read results Day 3 (schedule 7 days after 1st READ) 0.1mL 03/31 Active 2023 49019 03310 0 1 time Intrad ermal False Tubersol 5 tub. unit/0.1 mL intradermal injection solution [Tuberculin PPD] 0.1mL Intradermal 1 time For PPD 2nd Step Give 2nd Step PPD Day 1 and Read results Day 3 (schedule 7 days after 1st READ) 0.1mL 2023 Active 2023 07215 52484 0 1 time Intrad ermal False Tubersol 5 tub. unit/0.1 mL intradermal injection solution [Tuberculin PPD] 0.1mL Intradermal 1 time For PPD 2nd Step Give 2nd Step PPD Day 1 and Read results Day 3 (schedule 7 days after 1st READ) 0.1mL 03/25 Active 2023 78343 77929 0 1 time Intrad ermal False Aspercreme (lidocaine HCl) 4 % topical 4 % Topical Three times daily as needed For pain to feet and legs 4 % 11/08 Inactiv e 2023 81747 54303 0 Three times daily as needed Topica l False Citalopram 20 mg tablet [generic] 20 mg By Mouth Once daily For anxiety 20 mg 11/08 Inactiv e 2023 09854 60799 1 Once daily By Mouth False Dulcolax (bisacodyl) 10 mg rectal suppository 10 mg Rectal Daily as needed For constipation 10 mg 11/12 Inactiv e 2023 79141 47120 1 Daily as needed Rectal False Citalopram 20 mg tablet [generic] 20 mg By Mouth Once daily For anxiety 20 mg 11/12 Inactiv e 2023 38707 03265 1 Once daily By Mouth False Aspercreme (lidocaine HCl) 4 % topical 4 % Topical Three times daily as needed For pain to feet and legs 4 % 11/12 Inactiv e 2023 48264 92658 0 Three times daily as needed Topica l False Haloperidol lactate 2 mg/mL oral concentrate [generic] 0.5ml By Mouth Every 4 hours as needed For agitation 0.5ml 11/12 Inactiv e 2023 10855 80872 4 Every 4 hours as needed By Mouth False Haloperidol lactate 2 mg/mL oral concentrate [generic] 0.25ml By Mouth Every 4 days as needed For nausea/vomiti ng 0.25ml 11/12 Inactiv e 2023 54439 26172 4 Every 4 days as needed By Mouth False Ipratropium 0.5 mg-albutero l 3 mg (2.5 mg base)/3 mL nebulizatio n soln [generic] 3ml Inhalation Every 6 hours as needed via nebulization route For shortness of breath 3ml 11/12 Inactiv e 2023 84670 92595 3 Every 6 hours as needed Inhala tion False Lactulose 10 gram/15 mL (15 mL) oral solution [generic] 10 gram/15 m By Mouth Once daily For constipation 10 gram/15 m 11/12 Inactiv e 2023 45528 72184 0 Once daily By Mouth False Morphine concentrate 100 mg/5 mL (20 mg/mL) oral solution [generic] 0.25ml (5mg) By Mouth Every 2 hours as needed For shortness of breath or pain 0.25ml (5mg) 11/12 Inactiv e 2023 45607 17964 1 Every 2 hours as needed By Mouth False Pantoprazol e 40 mg tablet,fern yed release [generic] 40 mg By Mouth Once daily For GERD 40 mg 11/12 Inactiv e 2023 21946 26263 0 Once daily By Mouth False Pregabalin 25 mg capsule [generic] 25 mg By Mouth 3 times a day For pain 25 mg 11/12 Inactiv e 2023 93988 32511 9 3 times a day By Mouth False Senna 8.8 mg/5 mL oral syrup 5ml By Mouth Twice daily as needed For constipation 5ml 11/09 Inactiv e 2023 99307 00878 8 Twice daily as needed By Mouth False Tramadol 50 mg tablet [generic] 50 mg By Mouth Twice daily For pain 50 mg 11/12 Inactiv e 2023 46113 85723 0 Twice daily By Mouth False Tylenol Arthritis Pain 650 mg tablet,exte nded release 650 mg By Mouth 3 times a day For pain 650 mg 11/08 Inactiv e 2023 56845 99651 1 3 times a day By Mouth False Xanax 0.25 mg tablet 0.25 mg By Mouth Three times daily as needed For anxiety 0.25 mg 11/12 Inactiv e 2023 76675 14053 1 Three times daily as needed By Mouth False Zyprexa 2.5 mg tablet 2.5 mg By Mouth At bedtime For major depressive disorder 2.5 mg 11/12 Inactiv e 2023 53737 79326 0 At bedtime By Mouth False Tylenol 325 mg tablet 650 mg By Mouth 3 times a day For pain 650 mg 11/09 Inactiv e 2023 84916 49972 0 3 times a day By Mouth False Tylenol Extra Strength 500 mg tablet 500 mg By Mouth 3 times a day For pain 500 mg 11/12 Inactiv e 2023 38471 65875 6 3 times a day By Mouth False Senna 8.8 mg/5 mL oral syrup Twice daily administer senna 5mL For constipation 8.8 mg/5 mL 11/12 Inactiv e 2023 11151 51875 8 Twice daily By Mouth False Dulcolax (bisacodyl) 10 mg rectal suppository 10 mg Rectal Daily as needed For constipation 10 mg 2023 Active 2023 28951 03693 1 Daily as needed Rectal False Citalopram 20 mg tablet [generic] 20 mg By Mouth Once daily For anxiety 20 mg 2023 Active 2023 98347 53399 1 Once daily By Mouth False Aspercreme (lidocaine HCl) 4 % topical 4 % Topical Three times daily as needed For pain to feet and legs 4 % 2023 Active 2023 76122 49194 0 Three times daily as needed Topica l False Haloperidol lactate 2 mg/mL oral concentrate [generic] 0.5ml By Mouth Every 4 hours as needed For agitation 0.5ml 2023 Active 2023 80533 86376 4 Every 4 hours as needed By Mouth False Haloperidol lactate 2 mg/mL oral concentrate [generic] 0.25ml By Mouth Every 4 days as needed For nausea/vomiti ng 0.25ml 2023 Active 2023 37127 61746 4 Every 4 days as needed By Mouth False Ipratropium 0.5 mg-albutero l 3 mg (2.5 mg base)/3 mL nebulizatio n soln [generic] 3ml Inhalation Every 6 hours as needed via nebulization route For shortness of breath 3ml 2023 Active 2023 32976 77140 3 Every 6 hours as needed Inhala tion False Lactulose 10 gram/15 mL (15 mL) oral solution [generic] 10 gram/15 m By Mouth Once daily For constipation 10 gram/15 m 2023 Active 2023 83598 22986 0 Once daily By Mouth False Morphine concentrate 100 mg/5 mL (20 mg/mL) oral solution [generic] 0.25ml (5mg) By Mouth Every 2 hours as needed For shortness of breath or pain 0.25ml (5mg) 2023 Active 2023 67381 93862 1 Every 2 hours as needed By Mouth False Pantoprazol e 40 mg tablet,fern yed release [generic] 40 mg By Mouth Once daily For GERD 40 mg 2023 Active 2023 75513 84385 0 Once daily By Mouth False Pregabalin 25 mg capsule [generic] 25 mg By Mouth 3 times a day For pain 25 mg 2023 Active 2023 55003 17216 9 3 times a day By Mouth False Tramadol 50 mg tablet [generic] 50 mg By Mouth Twice daily For pain 50 mg 2023 Active 2023 43367 93397 0 Twice daily By Mouth False Xanax 0.25 mg tablet 0.25 mg By Mouth Three times daily as needed For anxiety 0.25 mg 2023 Active 2023 35577 82665 1 Three times daily as needed By Mouth False Zyprexa 2.5 mg tablet 2.5 mg By Mouth At bedtime For major depressive disorder 2.5 mg 2023 Active 2023 47931 74274 0 At bedtime By Mouth False Tylenol Extra Strength 500 mg tablet 500 mg By Mouth 3 times a day For pain 500 mg 2023 Active 2023 06817 20501 6 3 times a day By Mouth False Senna 8.8 mg/5 mL oral syrup Twice daily administer senna 5mL For constipation 8.8 mg/5 mL 2023 Active 2023 51577 09817 8 Twice daily By Mouth False Dulcolax (bisacodyl) 10 mg rectal suppository 10 mg Rectal Daily as needed For constipation 10 mg 2023 Active 2023 01654 58276 1 Daily as needed Rectal False Citalopram 20 mg tablet [generic] 20 mg By Mouth Once daily For anxiety 20 mg 2023 Active 2023 53613 78980 1 Once daily By Mouth False Aspercreme (lidocaine HCl) 4 % topical 4 % Topical Three times daily as needed For pain to feet and legs 4 % 2023 Active 2023 68885 34392 0 Three times daily as needed Topica l False Haloperidol lactate 2 mg/mL oral concentrate [generic] 0.5ml By Mouth Every 4 hours as needed For agitation 0.5ml 2023 Active 202321 62547 4 Every 4 hours as needed By Mouth False Haloperidol lactate 2 mg/mL oral concentrate [generic] 0.25ml By Mouth Every 4 days as needed For nausea/vomiti ng 0.25ml 2023 Active 202321 61044 4 Every 4 days as needed By Mouth False Ipratropium 0.5 mg-albutero l 3 mg (2.5 mg base)/3 mL nebulizatio n soln [generic] 3ml Inhalation Every 6 hours as needed via nebulization route For shortness of breath 3ml 2023 Active 2023 55039 92089 3 Every 6 hours as needed Inhala tion False Lactulose 10 gram/15 mL (15 mL) oral solution [generic] 10 gram/15 m By Mouth Once daily For constipation 10 gram/15 m 2023 Active 2023 03140 74101 0 Once daily By Mouth False Morphine concentrate 100 mg/5 mL (20 mg/mL) oral solution [generic] 0.25ml (5mg) By Mouth Every 2 hours as needed For shortness of breath or pain 0.25ml (5mg) 2023 Active 2023 10997 90085 1 Every 2 hours as needed By Mouth False Pantoprazol e 40 mg tablet,fern yed release [generic] 40 mg By Mouth Once daily For GERD 40 mg 2023 Active 2023 33045 06367 0 Once daily By Mouth False Pregabalin 25 mg capsule [generic] 25 mg By Mouth 3 times a day For pain 25 mg 2023 Active 2023 12716 18332 9 3 times a day By Mouth False Tramadol 50 mg tablet [generic] 50 mg By Mouth Twice daily For pain 50 mg 2023 Active 2023 66520 06324 0 Twice daily By Mouth False Xanax 0.25 mg tablet 0.25 mg By Mouth Three times daily as needed For anxiety 0.25 mg 2023 Active 2023 38357 12522 1 Three times daily as needed By Mouth False Zyprexa 2.5 mg tablet 2.5 mg By Mouth At bedtime For major depressive disorder 2.5 mg 2023 Active 2023 77307 86209 0 At bedtime By Mouth False Tylenol Extra Strength 500 mg tablet 500 mg By Mouth 3 times a day For pain 500 mg 2023 Active 2023 56931 88534 6 3 times a day By Mouth False Senna 8.8 mg/5 mL oral syrup Twice daily administer senna 5mL For constipation 8.8 mg/5 mL 2023 Active 2023 29458 29373 8 Twice daily By Mouth False Dulcolax (bisacodyl) 10 mg rectal suppository 10 mg Rectal Daily as needed For constipation 10 mg 2023 Active 2023 25276 93515 1 Daily as needed Rectal False Citalopram 20 mg tablet [generic] 20 mg By Mouth Once daily For anxiety 20 mg 2023 Active 2023 20689 28303 1 Once daily By Mouth False Aspercreme (lidocaine HCl) 4 % topical 4 % Topical Three times daily as needed For pain to feet and legs 4 % 2023 Active 2023 29434 45369 0 Three times daily as needed Topica l False Haloperidol lactate 2 mg/mL oral concentrate [generic] 0.5ml By Mouth Every 4 hours as needed For agitation 0.5ml 2023 Active 2023 96472 94072 4 Every 4 hours as needed By Mouth False Haloperidol lactate 2 mg/mL oral concentrate [generic] 0.25ml By Mouth Every 4 days as needed For nausea/vomiti ng 0.25ml 2023 Active 2023 64473 33627 4 Every 4 days as needed By Mouth False Ipratropium 0.5 mg-albutero l 3 mg (2.5 mg base)/3 mL nebulizatio n soln [generic] 3ml Inhalation Every 6 hours as needed via nebulization route For shortness of breath 3ml 2023 Active 2023 08231 73394 3 Every 6 hours as needed Inhala tion False Morphine concentrate 100 mg/5 mL (20 mg/mL) oral solution [generic] 0.25ml (5mg) By Mouth Every 2 hours as needed For shortness of breath or pain 0.25ml (5mg) 2023 Active 2023 61927 88285 1 Every 2 hours as needed By Mouth False Pregabalin 75 mg capsule [generic] 75 mg By Mouth 3 times a day For pain 75 mg 2023 Active 2023 29165 72486 9 3 times a day By Mouth False Senna 8.8 mg/5 mL oral syrup 5ml By Mouth Twice daily as needed For constipation 5ml 2023 Active 2023 20298 84996 8 Twice daily as needed By Mouth False Tramadol 50 mg tablet [generic] 50 mg By Mouth Twice daily For pain 50 mg 2023 Active 2023 33055 18697 0 Twice daily By Mouth False Zyprexa 2.5 mg tablet 2.5 mg By Mouth At bedtime For major depressive disorder 2.5 mg 2023 Active 20232 75335 0 At bedtime By Mouth False Tylenol Extra Strength 500 mg tablet 500 mg By Mouth 3 times a day For pain 500 mg 2023 Active 2023 34068 91136 6 3 times a day By Mouth False Trazodone 50 mg tablet [generic] ONE HALF TAB 25mg By Mouth At bedtime For sleep 25mg 2023 Active 2023 33045 45506 1 At bedtime By Mouth False Klonopin 0.5 mg tablet 0.5mg By Mouth At bedtime For sleep 0.5mg 2023 Active 2023 22074 2 At bedtime By Mouth False Dulcolax (bisacodyl) 10 mg rectal suppository 10 mg Rectal Daily as needed For constipation 10 mg 2023 Active 2023 34469 54262 1 Daily as needed Rectal False Citalopram 20 mg tablet [generic] 20 mg By Mouth Once daily For anxiety 20 mg 2023 Active 2023 14924 20566 1 Once daily By Mouth False Aspercreme (lidocaine HCl) 4 % topical 4 % Topical Three times daily as needed For pain to feet and legs 4 % 2023 Active 2023 40038 05046 0 Three times daily as needed Topica l False Haloperidol lactate 2 mg/mL oral concentrate [generic] 0.5ml By Mouth Every 4 hours as needed For agitation 0.5ml 2023 Active 2023 52926 68473 4 Every 4 hours as needed By Mouth False Haloperidol lactate 2 mg/mL oral concentrate [generic] 0.25ml By Mouth Every 4 days as needed For nausea/vomiti ng 0.25ml 2023 Active 2023 74477 45944 4 Every 4 days as needed By Mouth False Ipratropium 0.5 mg-albutero l 3 mg (2.5 mg base)/3 mL nebulizatio n soln [generic] 3ml Inhalation Every 6 hours as needed via nebulization route For shortness of breath 3ml 2023 Active 2023 29018 18762 3 Every 6 hours as needed Inhala tion False Morphine concentrate 100 mg/5 mL (20 mg/mL) oral solution [generic] 0.25ml (5mg) By Mouth Every 2 hours as needed For shortness of breath or pain 0.25ml (5mg) 2023 Active 2023 90196 25362 1 Every 2 hours as needed By Mouth False Pregabalin 75 mg capsule [generic] 75 mg By Mouth 3 times a day For pain 75 mg 2023 Active 2023 49221 54920 9 3 times a day By Mouth False Senna 8.8 mg/5 mL oral syrup 5ml By Mouth Twice daily as needed For constipation 5ml 2023 Active 2023 56779 54262 8 Twice daily as needed By Mouth False Tramadol 50 mg tablet [generic] 50 mg By Mouth Twice daily For pain 50 mg 2023 Active 2023 81814 72304 0 Twice daily By Mouth False Zyprexa 2.5 mg tablet 2.5 mg By Mouth At bedtime For major depressive disorder 2.5 mg 2023 Active 2023 82648 19347 0 At bedtime By Mouth False Tylenol Extra Strength 500 mg tablet 500 mg By Mouth 3 times a day For pain 500 mg 2023 Active 2023 80784 75315 6 3 times a day By Mouth False Trazodone 50 mg tablet [generic] ONE HALF TAB 25mg By Mouth At bedtime For sleep 25mg 2023 Active 2023 10839 52583 1 At bedtime By Mouth False Klonopin 0.5 mg tablet 0.5mg By Mouth At bedtime For sleep 0.5mg 2023 Active 2023 12382 2 At bedtime By Mouth False Dulcolax (bisacodyl) 10 mg rectal suppository 10 mg Rectal Daily as needed For constipation 10 mg 2023 Active 2023 28930 62832 1 Daily as needed Rectal False Citalopram 20 mg tablet [generic] 20 mg By Mouth Once daily For anxiety 20 mg 2023 Active 2023 90571 80942 1 Once daily By Mouth False Aspercreme (lidocaine HCl) 4 % topical 4 % Topical Three times daily as needed For pain to feet and legs 4 % 2023 Active 2023 90457 35281 0 Three times daily as needed Topica l False Haloperidol lactate 2 mg/mL oral concentrate [generic] 0.5ml By Mouth Every 4 hours as needed For agitation 0.5ml 2023 Active 202321 44984 4 Every 4 hours as needed By Mouth False Haloperidol lactate 2 mg/mL oral concentrate [generic] 0.25ml By Mouth Every 4 days as needed For nausea/vomiti ng 0.25ml 2023 Active 202321 92659 4 Every 4 days as needed By Mouth False Ipratropium 0.5 mg-albutero l 3 mg (2.5 mg base)/3 mL nebulizatio n soln [generic] 3ml Inhalation Every 6 hours as needed via nebulization route For shortness of breath 3ml 2023 Active 2023 20706 19332 3 Every 6 hours as needed Inhala tion False Morphine concentrate 100 mg/5 mL (20 mg/mL) oral solution [generic] 0.25ml (5mg) By Mouth Every 2 hours as needed For shortness of breath or pain 0.25ml (5mg) 2023 Active 2023 38033 91185 1 Every 2 hours as needed By Mouth False Pregabalin 75 mg capsule [generic] 75 mg By Mouth 3 times a day For pain 75 mg 2023 Active 2023 67051 82558 9 3 times a day By Mouth False Senna 8.8 mg/5 mL oral syrup 5ml By Mouth Twice daily as needed For constipation 5ml 2023 Active 2023 76975 23756 8 Twice daily as needed By Mouth False Tramadol 50 mg tablet [generic] 50 mg By Mouth Twice daily For pain 50 mg 2023 Active 2023 17985 30748 0 Twice daily By Mouth False Zyprexa 2.5 mg tablet 2.5 mg By Mouth At bedtime For major depressive disorder 2.5 mg 2023 Active 2023 83344 80368 0 At bedtime By Mouth False Tylenol Extra Strength 500 mg tablet 500 mg By Mouth 3 times a day For pain 500 mg 2023 Active 2023 76096 10299 6 3 times a day By Mouth False Trazodone 50 mg tablet [generic] ONE HALF TAB 25mg By Mouth At bedtime For sleep 25mg 2023 Active 2023 31359 68349 1 At bedtime By Mouth False Klonopin 0.5 mg tablet 0.5mg By Mouth At bedtime For sleep 0.5mg 2023 Active 2023 61159 2 At bedtime By Mouth False VITAL SIGNS Date Time Diastolic blood pressure Systolic blood pressure Body height Body weight Temperature SpO2 Blood Sugar Pulse Respirations 101 31431 8 55.00 mm[Hg] - Lying Down 154.00 mm[Hg] - Lying Down 154.00 NI 98.10 Forehead Scan 94.00 % 76.00/ min 18.00/min 00328 101 88952 2 64 NI Immunizations Vaccine Date Status COVID-19 05/25/2020 Completed COVID-19 06/15/2020 Completed Influenza 05/12/2023 Completed (PCV20)Pneumococcal 05/12/2023 Completed
--- OUTSIDE RECORDS SUMMARY | 2024-04-08 21:55 | External Medical Summary | Summary of Care ---
Author Name Unknown Organization [facility] Address [address] [place] [facility] [place] [address] Phone [phone] Care Team Providers Care Film Cleaner Name Role Phone Lolis Tam DO Primary Care Provider [phone] Reason for Visit * Reason Onset Date Comments FYI 04/05/2024 Encounter Details Date Type Department Care Team (Late st Contact Info) Description [facility] [address] [facility] [place] [address] Lolis Tam DO [address] [place] [address] FYI Allergies Active Allergy Reactions Criticality [...] 2022. 30 Tablet 3 02/26/20 Active Nystatin [id number] UNIT/GM External Powder (Nystop) Apply topically to [...] 04/05/2024 4:34 PM EST Viktoria calling from [facility] to advise Dr. [...] required. Phone number for Family Hospice is [phone] documented in this encounter Plan of Treatment [...] Advance Directives occurred with: Patient Care Teams Film Cleaner Relationship Specialty Start Date End Date Lolis Tam DO [address] [facility] [place] [address] PCP - General Family Medicine 08/13/21 documented as of this encounter
--- OUTSIDE RECORDS SUMMARY | 2024-04-08 21:55 | External Medical Summary | Summary of Care ---
Author Name Unknown Organization [facility] Address [address] [facility] [place] [address] Phone [phone] Care Team Providers Care Microwave Remote Sensing Scientist Name Role Phone Lolis Tam DO Primary Care Provider [phone] Reason for Visit * Reason Onset Date Comments FYI 04/05/202404/07 LM/Home ho spice recert Encounter Details Date Type Department Care Team (Late st Contact Info) Description 04/05/2024 Telephone Family Practice [facility] [place] [address] [facility] [place] [address] Lolis Tam DO [address] [facility] [place] [address] FYI (04/07 LM/Home hospice [...] 2022. 30 Tablet 3 02/26/20 Active Nystatin 455994 UNIT/GM External Powder (Nystop) Apply topically to [...] - 04/07/2024 9:33 AM EST Spoke to [facility]. Obtained a new number. Viktoria [...] required. Phone number for Family Hospice is [phone] documented in this encounter Plan of Treatment [...] Advance Directives occurred with: Patient Care Teams Microwave Remote Sensing Scientist Relationship Specialty Start Date End Date Lolis Tam DO [address] [facility] [place] [address] PCP - General Family Medicine 08/13/21 documented as of this encounter
--- OUTSIDE RECORDS SUMMARY | 2024-04-08 21:56 | External Medical Summary | Continuity Of Care Document ---
Author Name Unknown Address [address] [address] Organization [facility] () Care Team Providers Care Dopeman Name Role Phone DO Woody Amy Primary Care Provider [phone] Allergies Allergy Reaction Start Date End Date [...] 3 0.1 mL 03/21 Inactiv e 2023 39765 09779 0 1 time Intrad ermal False Tubersol 5 tub. unit/0.1 mL intradermal injection solution [Tuberculin PPD] 0.1mL Intradermal 1 time For PPD 2nd Step Give 2nd Step PPD Day 1 and Read results Day 3 (schedule 7 days after 1st READ) 0.1mL 03/31 Active 2023 47677 21755 0 1 time Intrad ermal False Tubersol 5 tub. unit/0.1 mL intradermal injection solution [Tuberculin PPD] 0.1mL Intradermal 1 time For PPD 2nd Step Give 2nd Step PPD Day 1 and Read results Day 3 (schedule 7 days after 1st READ) 0.1mL 2023 Active 2023 54541 25015 0 1 time Intrad ermal False Aspercreme (lidocaine HCl) 4 % topical 4 % Topical Three times daily as needed For pain to feet and legs 4 % 11/08 Inactiv e 2023 44013 99888 0 Three times daily as needed Topica l False Citalopram 20 mg tablet [generic] 20 mg By Mouth Once daily For anxiety 20 mg 11/08 Inactiv e 2023 17468 56148 1 Once daily By Mouth False Dulcolax (bisacodyl) 10 mg rectal suppository 10 mg Rectal Daily as needed For constipation 10 mg 11/12 Inactiv e 2023 53533 07014 1 Daily as needed Rectal False Citalopram 20 mg tablet [generic] 20 mg By Mouth Once daily For anxiety 20 mg 11/12 Inactiv e 2023 79323 38535 1 Once daily By Mouth False Aspercreme (lidocaine HCl) 4 % topical 4 % Topical Three times daily as needed For pain to feet and legs 4 % 11/12 Inactiv e 2023 34771 87980 0 Three times daily as needed Topica l False Haloperidol lactate 2 mg/mL oral concentrate [generic] 0.5ml By Mouth Every 4 hours as needed For agitation 0.5ml 11/12 Inactiv e 2023 89659 41311 4 Every 4 hours as needed By Mouth False Haloperidol lactate 2 mg/mL oral concentrate [generic] 0.25ml By Mouth Every 4 days as needed For nausea/vomiti ng 0.25ml 11/12 Inactiv e 2023 01794 55485 4 Every 4 days as needed By Mouth False Ipratropium 0.5 mg-albutero l 3 mg (2.5 mg base)/3 mL nebulizatio n soln [generic] 3ml Inhalation Every 6 hours as needed via nebulization route For shortness of breath 3ml 11/12 Inactiv e 2023 60427 34669 3 Every 6 hours as needed Inhala tion False Lactulose 10 gram/15 mL (15 mL) oral solution [generic] 10 gram/15 m By Mouth Once daily For constipation 10 gram/15 m 11/12 Inactiv e 2023 18035 43990 0 Once daily By Mouth False Morphine concentrate 100 mg/5 mL (20 mg/mL) oral solution [generic] 0.25ml (5mg) By Mouth Every 2 hours as needed For shortness of breath or pain 0.25ml (5mg) 11/12 Inactiv e 2023 18023 55137 1 Every 2 hours as needed By Mouth False Pantoprazol e 40 mg tablet,fern yed release [generic] 40 mg By Mouth Once daily For GERD 40 mg 11/12 Inactiv e 2023 47608 20725 0 Once daily By Mouth False Pregabalin 25 mg capsule [generic] 25 mg By Mouth 3 times a day For pain 25 mg 11/12 Inactiv e 2023 31114 09379 9 3 times a day By Mouth False Senna 8.8 mg/5 mL oral syrup 5ml By Mouth Twice daily as needed For constipation 5ml 11/09 Inactiv e 2023 07330 69069 8 Twice daily as needed By Mouth False Tramadol 50 mg tablet [generic] 50 mg By Mouth Twice daily For pain 50 mg 11/12 Inactiv e 2023 37450 14489 0 Twice daily By Mouth False Tylenol Arthritis Pain 650 mg tablet,exte nded release 650 mg By Mouth 3 times a day For pain 650 mg 11/08 Inactiv e 2023 41141 69942 1 3 times a day By Mouth False Xanax 0.25 mg tablet 0.25 mg By Mouth Three times daily as needed For anxiety 0.25 mg 11/12 Inactiv e 2023 80457 73236 1 Three times daily as needed By Mouth False Zyprexa 2.5 mg tablet 2.5 mg By Mouth At bedtime For major depressive disorder 2.5 mg 11/12 Inactiv e 2023 69252 77008 0 At bedtime By Mouth False Tylenol 325 mg tablet 650 mg By Mouth 3 times a day For pain 650 mg 11/09 Inactiv e 2023 99315 37577 0 3 times a day By Mouth False Tylenol Extra Strength 500 mg tablet 500 mg By Mouth 3 times a day For pain 500 mg 11/12 Inactiv e 2023 93051 29573 6 3 times a day By Mouth False Senna 8.8 mg/5 mL oral syrup Twice daily administer senna 5mL For constipation 8.8 mg/5 mL 11/12 Inactiv e 2023 20737 26822 8 Twice daily By Mouth False Dulcolax (bisacodyl) 10 mg rectal suppository 10 mg Rectal Daily as needed For constipation 10 mg 2023 Active 2023 32837 49303 1 Daily as needed Rectal False Citalopram 20 mg tablet [generic] 20 mg By Mouth Once daily For anxiety 20 mg 2023 Active 2023 25807 69291 1 Once daily By Mouth False Aspercreme (lidocaine HCl) 4 % topical 4 % Topical Three times daily as needed For pain to feet and legs 4 % 2023 Active 2023 44286 52037 0 Three times daily as needed Topica l False Haloperidol lactate 2 mg/mL oral concentrate [generic] 0.5ml By Mouth Every 4 hours as needed For agitation 0.5ml 2023 Active 2023 22425 46589 4 Every 4 hours as needed By Mouth False Haloperidol lactate 2 mg/mL oral concentrate [generic] 0.25ml By Mouth Every 4 days as needed For nausea/vomiti ng 0.25ml 2023 Active 2023 52246 29773 4 Every 4 days as needed By Mouth False Ipratropium 0.5 mg-albutero l 3 mg (2.5 mg base)/3 mL nebulizatio n soln [generic] 3ml Inhalation Every 6 hours as needed via nebulization route For shortness of breath 3ml 2023 Active 2023 94341 64468 3 Every 6 hours as needed Inhala tion False Lactulose 10 gram/15 mL (15 mL) oral solution [generic] 10 gram/15 m By Mouth Once daily For constipation 10 gram/15 m 2023 Active 2023 48571 51557 0 Once daily By Mouth False Morphine concentrate 100 mg/5 mL (20 mg/mL) oral solution [generic] 0.25ml (5mg) By Mouth Every 2 hours as needed For shortness of breath or pain 0.25ml (5mg) 2023 Active 2023 55375 55350 1 Every 2 hours as needed By Mouth False Pantoprazol e 40 mg tablet,fern yed release [generic] 40 mg By Mouth Once daily For GERD 40 mg 2023 Active 2023 94683 87434 0 Once daily By Mouth False Pregabalin 25 mg capsule [generic] 25 mg By Mouth 3 times a day For pain 25 mg 2023 Active 2023 96025 08589 9 3 times a day By Mouth False Tramadol 50 mg tablet [generic] 50 mg By Mouth Twice daily For pain 50 mg 2023 Active 2023 27077 30712 0 Twice daily By Mouth False Xanax 0.25 mg tablet 0.25 mg By Mouth Three times daily as needed For anxiety 0.25 mg 2023 Active 2023 52009 45166 1 Three times daily as needed By Mouth False Zyprexa 2.5 mg tablet 2.5 mg By Mouth At bedtime For major depressive disorder 2.5 mg 2023 Active 2023 30462 07412 0 At bedtime By Mouth False Tylenol Extra Strength 500 mg tablet 500 mg By Mouth 3 times a day For pain 500 mg 2023 Active 2023 10288 11654 6 3 times a day By Mouth False Senna 8.8 mg/5 mL oral syrup Twice daily administer senna 5mL For constipation 8.8 mg/5 mL 2023 Active 2023 51780 48193 8 Twice daily By Mouth False Dulcolax (bisacodyl) 10 mg rectal suppository 10 mg Rectal Daily as needed For constipation 10 mg 2023 Active 2023 62163 09513 1 Daily as needed Rectal False Citalopram 20 mg tablet [generic] 20 mg By Mouth Once daily For anxiety 20 mg 2023 Active 2023 24221 04591 1 Once daily By Mouth False Aspercreme (lidocaine HCl) 4 % topical 4 % Topical Three times daily as needed For pain to feet and legs 4 % 2023 Active 2023 17657 34102 0 Three times daily as needed Topica l False Haloperidol lactate 2 mg/mL oral concentrate [generic] 0.5ml By Mouth Every 4 hours as needed For agitation 0.5ml 2023 Active 2023 64879 78753 4 Every 4 hours as needed By Mouth False Haloperidol lactate 2 mg/mL oral concentrate [generic] 0.25ml By Mouth Every 4 days as needed For nausea/vomiti ng 0.25ml 2023 Active 2023 29600 93068 4 Every 4 days as needed By Mouth False Ipratropium 0.5 mg-albutero l 3 mg (2.5 mg base)/3 mL nebulizatio n soln [generic] 3ml Inhalation Every 6 hours as needed via nebulization route For shortness of breath 3ml 2023 Active 2023 44019 78599 3 Every 6 hours as needed Inhala tion False Lactulose 10 gram/15 mL (15 mL) oral solution [generic] 10 gram/15 m By Mouth Once daily For constipation 10 gram/15 m 2023 Active 2023 64112 78151 0 Once daily By Mouth False Morphine concentrate 100 mg/5 mL (20 mg/mL) oral solution [generic] 0.25ml (5mg) By Mouth Every 2 hours as needed For shortness of breath or pain 0.25ml (5mg) 2023 Active 2023 55704 82238 1 Every 2 hours as needed By Mouth False Pantoprazol e 40 mg tablet,fern yed release [generic] 40 mg By Mouth Once daily For GERD 40 mg 2023 Active 2023 30320 83781 0 Once daily By Mouth False Pregabalin 25 mg capsule [generic] 25 mg By Mouth 3 times a day For pain 25 mg 2023 Active 2023 28706 78154 9 3 times a day By Mouth False Tramadol 50 mg tablet [generic] 50 mg By Mouth Twice daily For pain 50 mg 2023 Active 2023 55166 69554 0 Twice daily By Mouth False Xanax 0.25 mg tablet 0.25 mg By Mouth Three times daily as needed For anxiety 0.25 mg 2023 Active 2023 16092 46823 1 Three times daily as needed By Mouth False Zyprexa 2.5 mg tablet 2.5 mg By Mouth At bedtime For major depressive disorder 2.5 mg 2023 Active 2023 29663 79553 0 At bedtime By Mouth False Tylenol Extra Strength 500 mg tablet 500 mg By Mouth 3 times a day For pain 500 mg 2023 Active 2023 68395 38842 6 3 times a day By Mouth False Senna 8.8 mg/5 mL oral syrup Twice daily administer senna 5mL For constipation 8.8 mg/5 mL 2023 Active 2023 57745 40530 8 Twice daily By Mouth False Dulcolax (bisacodyl) 10 mg rectal suppository 10 mg Rectal Daily as needed For constipation 10 mg 2023 Active 2023 25162 42558 1 Daily as needed Rectal False Citalopram 20 mg tablet [generic] 20 mg By Mouth Once daily For anxiety 20 mg 2023 Active 2023 07673 17950 1 Once daily By Mouth False Aspercreme (lidocaine HCl) 4 % topical 4 % Topical Three times daily as needed For pain to feet and legs 4 % 2023 Active 2023 47424 61965 0 Three times daily as needed Topica l False Haloperidol lactate 2 mg/mL oral concentrate [generic] 0.5ml By Mouth Every 4 hours as needed For agitation 0.5ml 2023 Active 2023 32809 70859 4 Every 4 hours as needed By Mouth False Haloperidol lactate 2 mg/mL oral concentrate [generic] 0.25ml By Mouth Every 4 days as needed For nausea/vomiti ng 0.25ml 2023 Active 2023 89875 28497 4 Every 4 days as needed By Mouth False Ipratropium 0.5 mg-albutero l 3 mg (2.5 mg base)/3 mL nebulizatio n soln [generic] 3ml Inhalation Every 6 hours as needed via nebulization route For shortness of breath 3ml 2023 Active 2023 18421 30370 3 Every 6 hours as needed Inhala tion False Morphine concentrate 100 mg/5 mL (20 mg/mL) oral solution [generic] 0.25ml (5mg) By Mouth Every 2 hours as needed For shortness of breath or pain 0.25ml (5mg) 2023 Active 2023 84848 64666 1 Every 2 hours as needed By Mouth False Pregabalin 75 mg capsule [generic] 75 mg By Mouth 3 times a day For pain 75 mg 2023 Active 2023 45469 60655 9 3 times a day By Mouth False Senna 8.8 mg/5 mL oral syrup 5ml By Mouth Twice daily as needed For constipation 5ml 2023 Active 2023 68818 50821 8 Twice daily as needed By Mouth False Tramadol 50 mg tablet [generic] 50 mg By Mouth Twice daily For pain 50 mg 2023 Active 2023 57011 28771 0 Twice daily By Mouth False Zyprexa 2.5 mg tablet 2.5 mg By Mouth At bedtime For major depressive disorder 2.5 mg 2023 Active 2023 32679 00782 0 At bedtime By Mouth False Tylenol Extra Strength 500 mg tablet 500 mg By Mouth 3 times a day For pain 500 mg 2023 Active 2023 93091 56444 6 3 times a day By Mouth False Trazodone 50 mg tablet [generic] ONE HALF TAB 25mg By Mouth At bedtime For sleep 25mg 2023 Active 2023 96995 75343 1 At bedtime By Mouth False Klonopin 0.5 mg tablet 0.5mg By Mouth At bedtime For sleep 0.5mg 2023 Active 2023 79377 2 At bedtime By Mouth False Dulcolax (bisacodyl) 10 mg rectal suppository 10 mg Rectal Daily as needed For constipation 10 mg 2023 Active 2023 17049 97420 1 Daily as needed Rectal False Citalopram 20 mg tablet [generic] 20 mg By Mouth Once daily For anxiety 20 mg 2023 Active 2023 29062 46457 1 Once daily By Mouth False Aspercreme (lidocaine HCl) 4 % topical 4 % Topical Three times daily as needed For pain to feet and legs 4 % 2023 Active 2023 72461 60815 0 Three times daily as needed Topica l False Haloperidol lactate 2 mg/mL oral concentrate [generic] 0.5ml By Mouth Every 4 hours as needed For agitation 0.5ml 2023 Active 202321 20230 4 Every 4 hours as needed By Mouth False Haloperidol lactate 2 mg/mL oral concentrate [generic] 0.25ml By Mouth Every 4 days as needed For nausea/vomiti ng 0.25ml 2023 Active 202321 45927 4 Every 4 days as needed By Mouth False Ipratropium 0.5 mg-albutero l 3 mg (2.5 mg base)/3 mL nebulizatio n soln [generic] 3ml Inhalation Every 6 hours as needed via nebulization route For shortness of breath 3ml 2023 Active 2023 87375 69641 3 Every 6 hours as needed Inhala tion False Morphine concentrate 100 mg/5 mL (20 mg/mL) oral solution [generic] 0.25ml (5mg) By Mouth Every 2 hours as needed For shortness of breath or pain 0.25ml (5mg) 2023 Active 2023 27637 04084 1 Every 2 hours as needed By Mouth False Pregabalin 75 mg capsule [generic] 75 mg By Mouth 3 times a day For pain 75 mg 2023 Active 2023 35991 06313 9 3 times a day By Mouth False Senna 8.8 mg/5 mL oral syrup 5ml By Mouth Twice daily as needed For constipation 5ml 2023 Active 2023 25184 24789 8 Twice daily as needed By Mouth False Tramadol 50 mg tablet [generic] 50 mg By Mouth Twice daily For pain 50 mg 2023 Active 2023 52588 19853 0 Twice daily By Mouth False Zyprexa 2.5 mg tablet 2.5 mg By Mouth At bedtime For major depressive disorder 2.5 mg 2023 Active 2023 40334 06453 0 At bedtime By Mouth False Tylenol Extra Strength 500 mg tablet 500 mg By Mouth 3 times a day For pain 500 mg 2023 Active 2023 39891 43664 6 3 times a day By Mouth False Trazodone 50 mg tablet [generic] ONE HALF TAB 25mg By Mouth At bedtime For sleep 25mg 2023 Active 2023 29941 19385 1 At bedtime By Mouth False Klonopin 0.5 mg tablet 0.5mg By Mouth At bedtime For sleep 0.5mg 2023 Active 2023 42398 2 At bedtime By Mouth False VITAL SIGNS Date Time Diastolic blood pressure Systolic blood pressure Body height Body weight Temperature SpO2 Blood Sugar Pulse Respirations 101 68745 8 55.00 mm[Hg] - Lying Down 154.00 mm[Hg] - Lying Down 154.00 NI 98.10 Forehead Scan 94.00 % 76.00/ min 18.00/min 101 98148 2 64 NI Immunizations Vaccine Date Status COVID-19 05/25/2020 Completed COVID-19 06/15/2020 Completed Influenza 05/12/2023 Completed (PCV20)Pneumococcal 05/12/2023 Completed
--- OUTSIDE RECORDS SUMMARY | 2024-04-08 21:56 | External Medical Summary | Continuity Of Care Document ---
Author Name Unknown Address [address] [address] Organization [facility] () Care Team Providers [place] Dispatch Supervisor Name Role Phone DO Woody Amy Primary Care Provider [phone] Allergies Allergy Reaction Start Date End Date [...] read results Day 3 0.1 mL 03/21 Active 2023 02107 09234 0 1 time Intrad ermal False Tubersol 5 tub. unit/0.1 mL intradermal injection solution [Tuberculin PPD] 0.1mL Intradermal 1 time For PPD 2nd Step Give 2nd Step PPD Day 1 and Read results Day 3 (schedule 7 days after 1st READ) 0.1mL 03/31 Active 2023 91347 09982 0 1 time Intrad ermal False Aspercreme (lidocaine HCl) 4 % topical 4 % Topical Three times daily as needed For pain to feet and legs 4 % 11/08 Inactiv e 2023 86327 87911 0 Three times daily as needed Topica l False Citalopram 20 mg tablet [generic] 20 mg By Mouth Once daily For anxiety 20 mg 11/08 Inactiv e 2023 27459 84852 1 Once daily By Mouth False Dulcolax (bisacodyl) 10 mg rectal suppository 10 mg Rectal Daily as needed For constipation 10 mg 11/12 Inactiv e 2023 26590 72823 1 Daily as needed Rectal False Citalopram 20 mg tablet [generic] 20 mg By Mouth Once daily For anxiety 20 mg 11/12 Inactiv e 2023 39950 71078 1 Once daily By Mouth False Aspercreme (lidocaine HCl) 4 % topical 4 % Topical Three times daily as needed For pain to feet and legs 4 % 11/12 Inactiv e 2023 48701 65699 0 Three times daily as needed Topica l False Haloperidol lactate 2 mg/mL oral concentrate [generic] 0.5ml By Mouth Every 4 hours as needed For agitation 0.5ml 11/12 Inactiv e 2023 81089 36426 4 Every 4 hours as needed By Mouth False Haloperidol lactate 2 mg/mL oral concentrate [generic] 0.25ml By Mouth Every 4 days as needed For nausea/vomiti ng 0.25ml 11/12 Inactiv e 2023 93310 91302 4 Every 4 days as needed By Mouth False Ipratropium 0.5 mg-albutero l 3 mg (2.5 mg base)/3 mL nebulizatio n soln [generic] 3ml Inhalation Every 6 hours as needed via nebulization route For shortness of breath 3ml 11/12 Inactiv e 2023 31353 88444 3 Every 6 hours as needed Inhala tion False Lactulose 10 gram/15 mL (15 mL) oral solution [generic] 10 gram/15 m By Mouth Once daily For constipation 10 gram/15 m 11/12 Inactiv e 2023 19122 25363 0 Once daily By Mouth False Morphine concentrate 100 mg/5 mL (20 mg/mL) oral solution [generic] 0.25ml (5mg) By Mouth Every 2 hours as needed For shortness of breath or pain 0.25ml (5mg) 11/12 Inactiv e 2023 38725 86964 1 Every 2 hours as needed By Mouth False Pantoprazol e 40 mg tablet,fern yed release [generic] 40 mg By Mouth Once daily For GERD 40 mg 11/12 Inactiv e 2023 88365 57683 0 Once daily By Mouth False Pregabalin 25 mg capsule [generic] 25 mg By Mouth 3 times a day For pain 25 mg 11/12 Inactiv e 2023 53522 53845 9 3 times a day By Mouth False Senna 8.8 mg/5 mL oral syrup 5ml By Mouth Twice daily as needed For constipation 5ml 11/09 Inactiv e 2023 53421 51596 8 Twice daily as needed By Mouth False Tramadol 50 mg tablet [generic] 50 mg By Mouth Twice daily For pain 50 mg 11/12 Inactiv e 2023 68634 00550 0 Twice daily By Mouth False Tylenol Arthritis Pain 650 mg tablet,exte nded release 650 mg By Mouth 3 times a day For pain 650 mg 11/08 Inactiv e 2023 46882 92107 1 3 times a day By Mouth False Xanax 0.25 mg tablet 0.25 mg By Mouth Three times daily as needed For anxiety 0.25 mg 11/12 Inactiv e 2023 63635 14079 1 Three times daily as needed By Mouth False Zyprexa 2.5 mg tablet 2.5 mg By Mouth At bedtime For major depressive disorder 2.5 mg 11/12 Inactiv e 2023 56102 27804 0 At bedtime By Mouth False Tylenol 325 mg tablet 650 mg By Mouth 3 times a day For pain 650 mg 11/09 Inactiv e 2023 00022 35324 0 3 times a day By Mouth False Tylenol Extra Strength 500 mg tablet 500 mg By Mouth 3 times a day For pain 500 mg 11/12 Inactiv e 2023 26082 59892 6 3 times a day By Mouth False Senna 8.8 mg/5 mL oral syrup Twice daily administer senna 5mL For constipation 8.8 mg/5 mL 11/12 Inactiv e 2023 97136 94805 8 Twice daily By Mouth False Dulcolax (bisacodyl) 10 mg rectal suppository 10 mg Rectal Daily as needed For constipation 10 mg 2023 Active 2023 75256 83241 1 Daily as needed Rectal False Citalopram 20 mg tablet [generic] 20 mg By Mouth Once daily For anxiety 20 mg 2023 Active 2023 37536 44092 1 Once daily By Mouth False Aspercreme (lidocaine HCl) 4 % topical 4 % Topical Three times daily as needed For pain to feet and legs 4 % 2023 Active 2023 04949 32404 0 Three times daily as needed Topica l False Haloperidol lactate 2 mg/mL oral concentrate [generic] 0.5ml By Mouth Every 4 hours as needed For agitation 0.5ml 2023 Active 2023 03628 39354 4 Every 4 hours as needed By Mouth False Haloperidol lactate 2 mg/mL oral concentrate [generic] 0.25ml By Mouth Every 4 days as needed For nausea/vomiti ng 0.25ml 2023 Active 2023 35085 61532 4 Every 4 days as needed By Mouth False Ipratropium 0.5 mg-albutero l 3 mg (2.5 mg base)/3 mL nebulizatio n soln [generic] 3ml Inhalation Every 6 hours as needed via nebulization route For shortness of breath 3ml 2023 Active 2023 37075 59631 3 Every 6 hours as needed Inhala tion False Lactulose 10 gram/15 mL (15 mL) oral solution [generic] 10 gram/15 m By Mouth Once daily For constipation 10 gram/15 m 2023 Active 2023 72219 24400 0 Once daily By Mouth False Morphine concentrate 100 mg/5 mL (20 mg/mL) oral solution [generic] 0.25ml (5mg) By Mouth Every 2 hours as needed For shortness of breath or pain 0.25ml (5mg) 2023 Active 2023 51753 47200 1 Every 2 hours as needed By Mouth False Pantoprazol e 40 mg tablet,fern yed release [generic] 40 mg By Mouth Once daily For GERD 40 mg 2023 Active 2023 85056 93342 0 Once daily By Mouth False Pregabalin 25 mg capsule [generic] 25 mg By Mouth 3 times a day For pain 25 mg 2023 Active 2023 33111 32120 9 3 times a day By Mouth False Tramadol 50 mg tablet [generic] 50 mg By Mouth Twice daily For pain 50 mg 2023 Active 2023 24242 60516 0 Twice daily By Mouth False Xanax 0.25 mg tablet 0.25 mg By Mouth Three times daily as needed For anxiety 0.25 mg 2023 Active 2023 88569 78750 1 Three times daily as needed By Mouth False Zyprexa 2.5 mg tablet 2.5 mg By Mouth At bedtime For major depressive disorder 2.5 mg 2023 Active 2023 65270 22759 0 At bedtime By Mouth False Tylenol Extra Strength 500 mg tablet 500 mg By Mouth 3 times a day For pain 500 mg 2023 Active 2023 45765 05437 6 3 times a day By Mouth False Senna 8.8 mg/5 mL oral syrup Twice daily administer senna 5mL For constipation 8.8 mg/5 mL 2023 Active 2023 09045 20395 8 Twice daily By Mouth False Dulcolax (bisacodyl) 10 mg rectal suppository 10 mg Rectal Daily as needed For constipation 10 mg 2023 Active 2023 72847 16481 1 Daily as needed Rectal False Citalopram 20 mg tablet [generic] 20 mg By Mouth Once daily For anxiety 20 mg 2023 Active 2023 73744 82720 1 Once daily By Mouth False Aspercreme (lidocaine HCl) 4 % topical 4 % Topical Three times daily as needed For pain to feet and legs 4 % 2023 Active 2023 89560 97607 0 Three times daily as needed Topica l False Haloperidol lactate 2 mg/mL oral concentrate [generic] 0.5ml By Mouth Every 4 hours as needed For agitation 0.5ml 2023 Active 2023 79417 18812 4 Every 4 hours as needed By Mouth False Haloperidol lactate 2 mg/mL oral concentrate [generic] 0.25ml By Mouth Every 4 days as needed For nausea/vomiti ng 0.25ml 2023 Active 202321 18755 4 Every 4 days as needed By Mouth False Ipratropium 0.5 mg-albutero l 3 mg (2.5 mg base)/3 mL nebulizatio n soln [generic] 3ml Inhalation Every 6 hours as needed via nebulization route For shortness of breath 3ml 2023 Active 2023 00829 29908 3 Every 6 hours as needed Inhala tion False Lactulose 10 gram/15 mL (15 mL) oral solution [generic] 10 gram/15 m By Mouth Once daily For constipation 10 gram/15 m 2023 Active 2023 55980 31672 0 Once daily By Mouth False Morphine concentrate 100 mg/5 mL (20 mg/mL) oral solution [generic] 0.25ml (5mg) By Mouth Every 2 hours as needed For shortness of breath or pain 0.25ml (5mg) 2023 Active 2023 63340 89346 1 Every 2 hours as needed By Mouth False Pantoprazol e 40 mg tablet,fern yed release [generic] 40 mg By Mouth Once daily For GERD 40 mg 2023 Active 2023 85531 31570 0 Once daily By Mouth False Pregabalin 25 mg capsule [generic] 25 mg By Mouth 3 times a day For pain 25 mg 2023 Active 2023 83913 83912 9 3 times a day By Mouth False Tramadol 50 mg tablet [generic] 50 mg By Mouth Twice daily For pain 50 mg 2023 Active 2023 91219 12146 0 Twice daily By Mouth False Xanax 0.25 mg tablet 0.25 mg By Mouth Three times daily as needed For anxiety 0.25 mg 2023 Active 2023 84979 91264 1 Three times daily as needed By Mouth False Zyprexa 2.5 mg tablet 2.5 mg By Mouth At bedtime For major depressive disorder 2.5 mg 2023 Active 2023 30203 74120 0 At bedtime By Mouth False Tylenol Extra Strength 500 mg tablet 500 mg By Mouth 3 times a day For pain 500 mg 2023 Active 2023 45291 86355 6 3 times a day By Mouth False Senna 8.8 mg/5 mL oral syrup Twice daily administer senna 5mL For constipation 8.8 mg/5 mL 2023 Active 2023 93530 26137 8 Twice daily By Mouth False Dulcolax (bisacodyl) 10 mg rectal suppository 10 mg Rectal Daily as needed For constipation 10 mg 2023 Active 2023 19622 66817 1 Daily as needed Rectal False Citalopram 20 mg tablet [generic] 20 mg By Mouth Once daily For anxiety 20 mg 2023 Active 2023 23468 34449 1 Once daily By Mouth False Aspercreme (lidocaine HCl) 4 % topical 4 % Topical Three times daily as needed For pain to feet and legs 4 % 2023 Active 2023 57615 01087 0 Three times daily as needed Topica l False Haloperidol lactate 2 mg/mL oral concentrate [generic] 0.5ml By Mouth Every 4 hours as needed For agitation 0.5ml 2023 Active 2023 98230 70306 4 Every 4 hours as needed By Mouth False Haloperidol lactate 2 mg/mL oral concentrate [generic] 0.25ml By Mouth Every 4 days as needed For nausea/vomiti ng 0.25ml 2023 Active 2023 96933 27706 4 Every 4 days as needed By Mouth False Ipratropium 0.5 mg-albutero l 3 mg (2.5 mg base)/3 mL nebulizatio n soln [generic] 3ml Inhalation Every 6 hours as needed via nebulization route For shortness of breath 3ml 2023 Active 2023 56326 43778 3 Every 6 hours as needed Inhala tion False Morphine concentrate 100 mg/5 mL (20 mg/mL) oral solution [generic] 0.25ml (5mg) By Mouth Every 2 hours as needed For shortness of breath or pain 0.25ml (5mg) 2023 Active 2023 07181 59745 1 Every 2 hours as needed By Mouth False Pregabalin 75 mg capsule [generic] 75 mg By Mouth 3 times a day For pain 75 mg 2023 Active 2023 33846 07991 9 3 times a day By Mouth False Senna 8.8 mg/5 mL oral syrup 5ml By Mouth Twice daily as needed For constipation 5ml 2023 Active 2023 41578 30551 8 Twice daily as needed By Mouth False Tramadol 50 mg tablet [generic] 50 mg By Mouth Twice daily For pain 50 mg 2023 Active 2023 92723 64782 0 Twice daily By Mouth False Zyprexa 2.5 mg tablet 2.5 mg By Mouth At bedtime For major depressive disorder 2.5 mg 2023 Active 2023 45305 00687 0 At bedtime By Mouth False Tylenol Extra Strength 500 mg tablet 500 mg By Mouth 3 times a day For pain 500 mg 2023 Active 2023 23985 12700 6 3 times a day By Mouth False Trazodone 50 mg tablet [generic] ONE HALF TAB 25mg By Mouth At bedtime For sleep 25mg 2023 Active 2023 57289 79941 1 At bedtime By Mouth False Klonopin 0.5 mg tablet 0.5mg By Mouth At bedtime For sleep 0.5mg 2023 Active 2023 47474 55307 2 At bedtime By Mouth False VITAL SIGNS Date Time Diastolic blood pressure Systolic blood pressure Body height Body weight Temperature SpO2 Blood Sugar Pulse Respirations 101 69843 8 55.00 mm[Hg] - Lying Down 154.00 mm[Hg] - Lying Down 154.00 NI 98.10 Forehead Scan 94.00 % 76.00/ min 18.00/min 101 40385 2 64 NI Immunizations Vaccine Date Status COVID-19 05/25/2020 Completed COVID-19 06/15/2020 Completed Influenza 05/12/2023 Completed (PCV20)Pneumococcal 05/12/2023 Completed
--- OUTSIDE RECORDS SUMMARY | 2024-04-08 21:56 | External Medical Summary | Continuity Of Care Document ---
Author Name Unknown Address [address] [address] Organization [facility] () Care Team Providers Care Manager Gallery Name Role Phone DO Woody Amy Primary Care Provider [phone] Allergies Allergy Reaction Start Date End Date [...] Day 3 0.1 mL 03/21 Active 2023 06585 21663 0 1 time Intrad ermal False Tubersol 5 tub. unit/0.1 mL intradermal injection solution [Tuberculin PPD] 0.1mL Intradermal 1 time For PPD 2nd Step Give 2nd Step PPD Day 1 and Read results Day 3 (schedule 7 days after 1st READ) 0.1mL 03/31 Active 2023 44860 27087 0 1 time Intrad ermal False Aspercreme (lidocaine HCl) 4 % topical 4 % Topical Three times daily as needed For pain to feet and legs 4 % 11/08 Inactiv e 2023 31150 66210 0 Three times daily as needed Topica l False Citalopram 20 mg tablet [generic] 20 mg By Mouth Once daily For anxiety 20 mg 11/08 Inactiv e 2023 50746 56709 1 Once daily By Mouth False Dulcolax (bisacodyl) 10 mg rectal suppository 10 mg Rectal Daily as needed For constipation 10 mg 11/12 Inactiv e 2023 67543 45024 1 Daily as needed Rectal False Citalopram 20 mg tablet [generic] 20 mg By Mouth Once daily For anxiety 20 mg 11/12 Inactiv e 2023 11656 14757 1 Once daily By Mouth False Aspercreme (lidocaine HCl) 4 % topical 4 % Topical Three times daily as needed For pain to feet and legs 4 % 11/12 Inactiv e 2023 02138 97498 0 Three times daily as needed Topica l False Haloperidol lactate 2 mg/mL oral concentrate [generic] 0.5ml By Mouth Every 4 hours as needed For agitation 0.5ml 11/12 Inactiv e 2023 23484 03159 4 Every 4 hours as needed By Mouth False Haloperidol lactate 2 mg/mL oral concentrate [generic] 0.25ml By Mouth Every 4 days as needed For nausea/vomiti ng 0.25ml 11/12 Inactiv e 2023 84109 56309 4 Every 4 days as needed By Mouth False Ipratropium 0.5 mg-albutero l 3 mg (2.5 mg base)/3 mL nebulizatio n soln [generic] 3ml Inhalation Every 6 hours as needed via nebulization route For shortness of breath 3ml 11/12 Inactiv e 2023 74891 06537 3 Every 6 hours as needed Inhala tion False Lactulose 10 gram/15 mL (15 mL) oral solution [generic] 10 gram/15 m By Mouth Once daily For constipation 10 gram/15 m 11/12 Inactiv e 2023 61710 63298 0 Once daily By Mouth False Morphine concentrate 100 mg/5 mL (20 mg/mL) oral solution [generic] 0.25ml (5mg) By Mouth Every 2 hours as needed For shortness of breath or pain 0.25ml (5mg) 11/12 Inactiv e 2023 47423 19630 1 Every 2 hours as needed By Mouth False Pantoprazol e 40 mg tablet,fern yed release [generic] 40 mg By Mouth Once daily For GERD 40 mg 11/12 Inactiv e 2023 50986 59726 0 Once daily By Mouth False Pregabalin 25 mg capsule [generic] 25 mg By Mouth 3 times a day For pain 25 mg 11/12 Inactiv e 2023 77320 34124 9 3 times a day By Mouth False Senna 8.8 mg/5 mL oral syrup 5ml By Mouth Twice daily as needed For constipation 5ml 11/09 Inactiv e 2023 47580 61006 8 Twice daily as needed By Mouth False Tramadol 50 mg tablet [generic] 50 mg By Mouth Twice daily For pain 50 mg 11/12 Inactiv e 2023 26476 00392 0 Twice daily By Mouth False Tylenol Arthritis Pain 650 mg tablet,exte nded release 650 mg By Mouth 3 times a day For pain 650 mg 11/08 Inactiv e 2023 65190 43268 1 3 times a day By Mouth False Xanax 0.25 mg tablet 0.25 mg By Mouth Three times daily as needed For anxiety 0.25 mg 11/12 Inactiv e 2023 40742 17777 1 Three times daily as needed By Mouth False Zyprexa 2.5 mg tablet 2.5 mg By Mouth At bedtime For major depressive disorder 2.5 mg 11/12 Inactiv e 2023 33721 60039 0 At bedtime By Mouth False Tylenol 325 mg tablet 650 mg By Mouth 3 times a day For pain 650 mg 11/09 Inactiv e 2023 18091 12836 0 3 times a day By Mouth False Tylenol Extra Strength 500 mg tablet 500 mg By Mouth 3 times a day For pain 500 mg 11/12 Inactiv e 2023 76168 17826 6 3 times a day By Mouth False Senna 8.8 mg/5 mL oral syrup Twice daily administer senna 5mL For constipation 8.8 mg/5 mL 11/12 Inactiv e 2023 57804 07210 8 Twice daily By Mouth False Dulcolax (bisacodyl) 10 mg rectal suppository 10 mg Rectal Daily as needed For constipation 10 mg 2023 Active 2023 01581 03045 1 Daily as needed Rectal False Citalopram 20 mg tablet [generic] 20 mg By Mouth Once daily For anxiety 20 mg 2023 Active 2023 56230 96256 1 Once daily By Mouth False Aspercreme (lidocaine HCl) 4 % topical 4 % Topical Three times daily as needed For pain to feet and legs 4 % 2023 Active 2023 32328 86383 0 Three times daily as needed Topica l False Haloperidol lactate 2 mg/mL oral concentrate [generic] 0.5ml By Mouth Every 4 hours as needed For agitation 0.5ml 2023 Active 2023 71560 38355 4 Every 4 hours as needed By Mouth False Haloperidol lactate 2 mg/mL oral concentrate [generic] 0.25ml By Mouth Every 4 days as needed For nausea/vomiti ng 0.25ml 2023 Active 2023 06925 91341 4 Every 4 days as needed By Mouth False Ipratropium 0.5 mg-albutero l 3 mg (2.5 mg base)/3 mL nebulizatio n soln [generic] 3ml Inhalation Every 6 hours as needed via nebulization route For shortness of breath 3ml 2023 Active 2023 93594 79558 3 Every 6 hours as needed Inhala tion False Lactulose 10 gram/15 mL (15 mL) oral solution [generic] 10 gram/15 m By Mouth Once daily For constipation 10 gram/15 m 2023 Active 2023 40638 24955 0 Once daily By Mouth False Morphine concentrate 100 mg/5 mL (20 mg/mL) oral solution [generic] 0.25ml (5mg) By Mouth Every 2 hours as needed For shortness of breath or pain 0.25ml (5mg) 2023 Active 2023 59808 32009 1 Every 2 hours as needed By Mouth False Pantoprazol e 40 mg tablet,fern yed release [generic] 40 mg By Mouth Once daily For GERD 40 mg 2023 Active 2023 93373 81588 0 Once daily By Mouth False Pregabalin 25 mg capsule [generic] 25 mg By Mouth 3 times a day For pain 25 mg 2023 Active 2023 59521 32533 9 3 times a day By Mouth False Tramadol 50 mg tablet [generic] 50 mg By Mouth Twice daily For pain 50 mg 2023 Active 2023 33713 51068 0 Twice daily By Mouth False Xanax 0.25 mg tablet 0.25 mg By Mouth Three times daily as needed For anxiety 0.25 mg 2023 Active 2023 17108 92604 1 Three times daily as needed By Mouth False Zyprexa 2.5 mg tablet 2.5 mg By Mouth At bedtime For major depressive disorder 2.5 mg 2023 Active 2023 69890 53424 0 At bedtime By Mouth False Tylenol Extra Strength 500 mg tablet 500 mg By Mouth 3 times a day For pain 500 mg 2023 Active 2023 19938 63505 6 3 times a day By Mouth False Senna 8.8 mg/5 mL oral syrup Twice daily administer senna 5mL For constipation 8.8 mg/5 mL 2023 Active 2023 44340 80155 8 Twice daily By Mouth False Dulcolax (bisacodyl) 10 mg rectal suppository 10 mg Rectal Daily as needed For constipation 10 mg 2023 Active 2023 13385 47272 1 Daily as needed Rectal False Citalopram 20 mg tablet [generic] 20 mg By Mouth Once daily For anxiety 20 mg 2023 Active 2023 80242 40970 1 Once daily By Mouth False Aspercreme (lidocaine HCl) 4 % topical 4 % Topical Three times daily as needed For pain to feet and legs 4 % 2023 Active 2023 98549 80924 0 Three times daily as needed Topica l False Haloperidol lactate 2 mg/mL oral concentrate [generic] 0.5ml By Mouth Every 4 hours as needed For agitation 0.5ml 2023 Active 2023 05046 35918 4 Every 4 hours as needed By Mouth False Haloperidol lactate 2 mg/mL oral concentrate [generic] 0.25ml By Mouth Every 4 days as needed For nausea/vomiti ng 0.25ml 2023 Active 202321 47250 4 Every 4 days as needed By Mouth False Ipratropium 0.5 mg-albutero l 3 mg (2.5 mg base)/3 mL nebulizatio n soln [generic] 3ml Inhalation Every 6 hours as needed via nebulization route For shortness of breath 3ml 2023 Active 2023 98419 95760 3 Every 6 hours as needed Inhala tion False Lactulose 10 gram/15 mL (15 mL) oral solution [generic] 10 gram/15 m By Mouth Once daily For constipation 10 gram/15 m 2023 Active 2023 16387 74197 0 Once daily By Mouth False Morphine concentrate 100 mg/5 mL (20 mg/mL) oral solution [generic] 0.25ml (5mg) By Mouth Every 2 hours as needed For shortness of breath or pain 0.25ml (5mg) 2023 Active 2023 91849 52944 1 Every 2 hours as needed By Mouth False Pantoprazol e 40 mg tablet,fern yed release [generic] 40 mg By Mouth Once daily For GERD 40 mg 2023 Active 2023 04049 27596 0 Once daily By Mouth False Pregabalin 25 mg capsule [generic] 25 mg By Mouth 3 times a day For pain 25 mg 2023 Active 2023 54010 29448 9 3 times a day By Mouth False Tramadol 50 mg tablet [generic] 50 mg By Mouth Twice daily For pain 50 mg 2023 Active 2023 48981 68591 0 Twice daily By Mouth False Xanax 0.25 mg tablet 0.25 mg By Mouth Three times daily as needed For anxiety 0.25 mg 2023 Active 2023 77122 25989 1 Three times daily as needed By Mouth False Zyprexa 2.5 mg tablet 2.5 mg By Mouth At bedtime For major depressive disorder 2.5 mg 2023 Active 2023 41728 63136 0 At bedtime By Mouth False Tylenol Extra Strength 500 mg tablet 500 mg By Mouth 3 times a day For pain 500 mg 2023 Active 2023 43273 69273 6 3 times a day By Mouth False Senna 8.8 mg/5 mL oral syrup Twice daily administer senna 5mL For constipation 8.8 mg/5 mL 2023 Active 2023 03620 07014 8 Twice daily By Mouth False Dulcolax (bisacodyl) 10 mg rectal suppository 10 mg Rectal Daily as needed For constipation 10 mg 2023 Active 2023 14658 02912 1 Daily as needed Rectal False Citalopram 20 mg tablet [generic] 20 mg By Mouth Once daily For anxiety 20 mg 2023 Active 2023 61041 53464 1 Once daily By Mouth False Aspercreme (lidocaine HCl) 4 % topical 4 % Topical Three times daily as needed For pain to feet and legs 4 % 2023 Active 2023 48921 10618 0 Three times daily as needed Topica l False Haloperidol lactate 2 mg/mL oral concentrate [generic] 0.5ml By Mouth Every 4 hours as needed For agitation 0.5ml 2023 Active 2023 80974 97530 4 Every 4 hours as needed By Mouth False Haloperidol lactate 2 mg/mL oral concentrate [generic] 0.25ml By Mouth Every 4 days as needed For nausea/vomiti ng 0.25ml 2023 Active 2023 70231 03653 4 Every 4 days as needed By Mouth False Ipratropium 0.5 mg-albutero l 3 mg (2.5 mg base)/3 mL nebulizatio n soln [generic] 3ml Inhalation Every 6 hours as needed via nebulization route For shortness of breath 3ml 2023 Active 2023 50462 89273 3 Every 6 hours as needed Inhala tion False Morphine concentrate 100 mg/5 mL (20 mg/mL) oral solution [generic] 0.25ml (5mg) By Mouth Every 2 hours as needed For shortness of breath or pain 0.25ml (5mg) 2023 Active 2023 36675 59401 1 Every 2 hours as needed By Mouth False Pregabalin 75 mg capsule [generic] 75 mg By Mouth 3 times a day For pain 75 mg 2023 Active 2023 38031 98303 9 3 times a day By Mouth False Senna 8.8 mg/5 mL oral syrup 5ml By Mouth Twice daily as needed For constipation 5ml 2023 Active 2023 49286 31978 8 Twice daily as needed By Mouth False Tramadol 50 mg tablet [generic] 50 mg By Mouth Twice daily For pain 50 mg 2023 Active 2023 02458 87323 0 Twice daily By Mouth False Zyprexa 2.5 mg tablet 2.5 mg By Mouth At bedtime For major depressive disorder 2.5 mg 2023 Active 2023 12197 53293 0 At bedtime By Mouth False Tylenol Extra Strength 500 mg tablet 500 mg By Mouth 3 times a day For pain 500 mg 2023 Active 2023 61434 80248 6 3 times a day By Mouth False Trazodone 50 mg tablet [generic] ONE HALF TAB 25mg By Mouth At bedtime For sleep 25mg 2023 Active 2023 37579 52438 1 At bedtime By Mouth False Klonopin 0.5 mg tablet 0.5mg By Mouth At bedtime For sleep 0.5mg 2023 Active 2023 74769 67949 2 At bedtime By Mouth False VITAL SIGNS Date Time Diastolic blood pressure Systolic blood pressure Body height Body weight Temperature SpO2 Blood Sugar Pulse Respirations 101 57169 8 55.00 mm[Hg] - Lying Down 154.00 mm[Hg] - Lying Down 154.00 NI 98.10 Forehead Scan 94.00 % 76.00/ min 18.00/min 101 44062 2 64 NI Immunizations Vaccine Date Status COVID-19 05/25/2020 Completed COVID-19 06/15/2020 Completed Influenza 05/12/2023 Completed (PCV20)Pneumococcal 05/12/2023 Completed
--- OUTSIDE RECORDS SUMMARY | 2024-04-08 21:56 | External Medical Summary | Continuity Of Care Document ---
Author Name Unknown Address [address] [address] Organization [facility] () Care Team Providers Care Public Relations Director Name Role Phone DO Woody Amy Primary Care Provider [phone] Allergies Allergy Reaction Start Date End Date [...] Day 3 0.1 mL 03/21 Active 2023 49173 39698 0 1 time Intrad ermal False Tubersol 5 tub. unit/0.1 mL intradermal injection solution [Tuberculin PPD] 0.1mL Intradermal 1 time For PPD 2nd Step Give 2nd Step PPD Day 1 and Read results Day 3 (schedule 7 days after 1st READ) 0.1mL 03/31 Active 2023 33868 96679 0 1 time Intrad ermal False Aspercreme (lidocaine HCl) 4 % topical 4 % Topical Three times daily as needed For pain to feet and legs 4 % 11/08 Inactiv e 2023 05412 54539 0 Three times daily as needed Topica l False Citalopram 20 mg tablet [generic] 20 mg By Mouth Once daily For anxiety 20 mg 11/08 Inactiv e 2023 15247 12601 1 Once daily By Mouth False Dulcolax (bisacodyl) 10 mg rectal suppository 10 mg Rectal Daily as needed For constipation 10 mg 11/12 Inactiv e 2023 07497 41162 1 Daily as needed Rectal False Citalopram 20 mg tablet [generic] 20 mg By Mouth Once daily For anxiety 20 mg 11/12 Inactiv e 2023 46471 29346 1 Once daily By Mouth False Aspercreme (lidocaine HCl) 4 % topical 4 % Topical Three times daily as needed For pain to feet and legs 4 % 11/12 Inactiv e 2023 74679 37741 0 Three times daily as needed Topica l False Haloperidol lactate 2 mg/mL oral concentrate [generic] 0.5ml By Mouth Every 4 hours as needed For agitation 0.5ml 11/12 Inactiv e 2023 68822 14217 4 Every 4 hours as needed By Mouth False Haloperidol lactate 2 mg/mL oral concentrate [generic] 0.25ml By Mouth Every 4 days as needed For nausea/vomiti ng 0.25ml 11/12 Inactiv e 2023 44501 14789 4 Every 4 days as needed By Mouth False Ipratropium 0.5 mg-albutero l 3 mg (2.5 mg base)/3 mL nebulizatio n soln [generic] 3ml Inhalation Every 6 hours as needed via nebulization route For shortness of breath 3ml 11/12 Inactiv e 2023 92812 55442 3 Every 6 hours as needed Inhala tion False Lactulose 10 gram/15 mL (15 mL) oral solution [generic] 10 gram/15 m By Mouth Once daily For constipation 10 gram/15 m 11/12 Inactiv e 2023 62871 06043 0 Once daily By Mouth False Morphine concentrate 100 mg/5 mL (20 mg/mL) oral solution [generic] 0.25ml (5mg) By Mouth Every 2 hours as needed For shortness of breath or pain 0.25ml (5mg) 11/12 Inactiv e 2023 23501 16687 1 Every 2 hours as needed By Mouth False Pantoprazol e 40 mg tablet,fern yed release [generic] 40 mg By Mouth Once daily For GERD 40 mg 11/12 Inactiv e 2023 28939 07992 0 Once daily By Mouth False Pregabalin 25 mg capsule [generic] 25 mg By Mouth 3 times a day For pain 25 mg 11/12 Inactiv e 2023 56295 03860 9 3 times a day By Mouth False Senna 8.8 mg/5 mL oral syrup 5ml By Mouth Twice daily as needed For constipation 5ml 11/09 Inactiv e 2023 19093 25221 8 Twice daily as needed By Mouth False Tramadol 50 mg tablet [generic] 50 mg By Mouth Twice daily For pain 50 mg 11/12 Inactiv e 2023 04080 65901 0 Twice daily By Mouth False Tylenol Arthritis Pain 650 mg tablet,exte nded release 650 mg By Mouth 3 times a day For pain 650 mg 11/08 Inactiv e 2023 97601 48553 1 3 times a day By Mouth False Xanax 0.25 mg tablet 0.25 mg By Mouth Three times daily as needed For anxiety 0.25 mg 11/12 Inactiv e 2023 75166 08117 1 Three times daily as needed By Mouth False Zyprexa 2.5 mg tablet 2.5 mg By Mouth At bedtime For major depressive disorder 2.5 mg 11/12 Inactiv e 2023 25706 12066 0 At bedtime By Mouth False Tylenol 325 mg tablet 650 mg By Mouth 3 times a day For pain 650 mg 11/09 Inactiv e 2023 88200 80716 0 3 times a day By Mouth False Tylenol Extra Strength 500 mg tablet 500 mg By Mouth 3 times a day For pain 500 mg 11/12 Inactiv e 2023 85990 82594 6 3 times a day By Mouth False Senna 8.8 mg/5 mL oral syrup Twice daily administer senna 5mL For constipation 8.8 mg/5 mL 11/12 Inactiv e 2023 97744 58841 8 Twice daily By Mouth False Dulcolax (bisacodyl) 10 mg rectal suppository 10 mg Rectal Daily as needed For constipation 10 mg 2023 Active 2023 70206 46195 1 Daily as needed Rectal False Citalopram 20 mg tablet [generic] 20 mg By Mouth Once daily For anxiety 20 mg 2023 Active 2023 92331 27995 1 Once daily By Mouth False Aspercreme (lidocaine HCl) 4 % topical 4 % Topical Three times daily as needed For pain to feet and legs 4 % 2023 Active 2023 44521 61128 0 Three times daily as needed Topica l False Haloperidol lactate 2 mg/mL oral concentrate [generic] 0.5ml By Mouth Every 4 hours as needed For agitation 0.5ml 2023 Active 2023 77165 16221 4 Every 4 hours as needed By Mouth False Haloperidol lactate 2 mg/mL oral concentrate [generic] 0.25ml By Mouth Every 4 days as needed For nausea/vomiti ng 0.25ml 2023 Active 2023 33720 26539 4 Every 4 days as needed By Mouth False Ipratropium 0.5 mg-albutero l 3 mg (2.5 mg base)/3 mL nebulizatio n soln [generic] 3ml Inhalation Every 6 hours as needed via nebulization route For shortness of breath 3ml 2023 Active 2023 51643 88658 3 Every 6 hours as needed Inhala tion False Lactulose 10 gram/15 mL (15 mL) oral solution [generic] 10 gram/15 m By Mouth Once daily For constipation 10 gram/15 m 2023 Active 2023 17263 62204 0 Once daily By Mouth False Morphine concentrate 100 mg/5 mL (20 mg/mL) oral solution [generic] 0.25ml (5mg) By Mouth Every 2 hours as needed For shortness of breath or pain 0.25ml (5mg) 2023 Active 2023 33128 47419 1 Every 2 hours as needed By Mouth False Pantoprazol e 40 mg tablet,fern yed release [generic] 40 mg By Mouth Once daily For GERD 40 mg 2023 Active 2023 01860 02652 0 Once daily By Mouth False Pregabalin 25 mg capsule [generic] 25 mg By Mouth 3 times a day For pain 25 mg 2023 Active 2023 85893 63415 9 3 times a day By Mouth False Tramadol 50 mg tablet [generic] 50 mg By Mouth Twice daily For pain 50 mg 2023 Active 2023 85704 75227 0 Twice daily By Mouth False Xanax 0.25 mg tablet 0.25 mg By Mouth Three times daily as needed For anxiety 0.25 mg 2023 Active 2023 22848 75141 1 Three times daily as needed By Mouth False Zyprexa 2.5 mg tablet 2.5 mg By Mouth At bedtime For major depressive disorder 2.5 mg 2023 Active 2023 31292 81300 0 At bedtime By Mouth False Tylenol Extra Strength 500 mg tablet 500 mg By Mouth 3 times a day For pain 500 mg 2023 Active 2023 96814 60140 6 3 times a day By Mouth False Senna 8.8 mg/5 mL oral syrup Twice daily administer senna 5mL For constipation 8.8 mg/5 mL 2023 Active 2023 48052 19015 8 Twice daily By Mouth False Dulcolax (bisacodyl) 10 mg rectal suppository 10 mg Rectal Daily as needed For constipation 10 mg 2023 Active 2023 51455 84332 1 Daily as needed Rectal False Citalopram 20 mg tablet [generic] 20 mg By Mouth Once daily For anxiety 20 mg 2023 Active 2023 34121 23160 1 Once daily By Mouth False Aspercreme (lidocaine HCl) 4 % topical 4 % Topical Three times daily as needed For pain to feet and legs 4 % 2023 Active 2023 56876 88655 0 Three times daily as needed Topica l False Haloperidol lactate 2 mg/mL oral concentrate [generic] 0.5ml By Mouth Every 4 hours as needed For agitation 0.5ml 2023 Active 2023 20046 87076 4 Every 4 hours as needed By Mouth False Haloperidol lactate 2 mg/mL oral concentrate [generic] 0.25ml By Mouth Every 4 days as needed For nausea/vomiti ng 0.25ml 2023 Active 202321 50405 4 Every 4 days as needed By Mouth False Ipratropium 0.5 mg-albutero l 3 mg (2.5 mg base)/3 mL nebulizatio n soln [generic] 3ml Inhalation Every 6 hours as needed via nebulization route For shortness of breath 3ml 2023 Active 2023 31263 62845 3 Every 6 hours as needed Inhala tion False Lactulose 10 gram/15 mL (15 mL) oral solution [generic] 10 gram/15 m By Mouth Once daily For constipation 10 gram/15 m 2023 Active 2023 29594 25410 0 Once daily By Mouth False Morphine concentrate 100 mg/5 mL (20 mg/mL) oral solution [generic] 0.25ml (5mg) By Mouth Every 2 hours as needed For shortness of breath or pain 0.25ml (5mg) 2023 Active 2023 66679 70561 1 Every 2 hours as needed By Mouth False Pantoprazol e 40 mg tablet,fern yed release [generic] 40 mg By Mouth Once daily For GERD 40 mg 2023 Active 2023 18384 61641 0 Once daily By Mouth False Pregabalin 25 mg capsule [generic] 25 mg By Mouth 3 times a day For pain 25 mg 2023 Active 2023 29777 71246 9 3 times a day By Mouth False Tramadol 50 mg tablet [generic] 50 mg By Mouth Twice daily For pain 50 mg 2023 Active 2023 61998 30529 0 Twice daily By Mouth False Xanax 0.25 mg tablet 0.25 mg By Mouth Three times daily as needed For anxiety 0.25 mg 2023 Active 2023 59958 50295 1 Three times daily as needed By Mouth False Zyprexa 2.5 mg tablet 2.5 mg By Mouth At bedtime For major depressive disorder 2.5 mg 2023 Active 2023 89264 39617 0 At bedtime By Mouth False Tylenol Extra Strength 500 mg tablet 500 mg By Mouth 3 times a day For pain 500 mg 2023 Active 2023 81669 53812 6 3 times a day By Mouth False Senna 8.8 mg/5 mL oral syrup Twice daily administer senna 5mL For constipation 8.8 mg/5 mL 2023 Active 2023 34116 36525 8 Twice daily By Mouth False Dulcolax (bisacodyl) 10 mg rectal suppository 10 mg Rectal Daily as needed For constipation 10 mg 2023 Active 2023 03887 47287 1 Daily as needed Rectal False Citalopram 20 mg tablet [generic] 20 mg By Mouth Once daily For anxiety 20 mg 2023 Active 2023 45096 24402 1 Once daily By Mouth False Aspercreme (lidocaine HCl) 4 % topical 4 % Topical Three times daily as needed For pain to feet and legs 4 % 2023 Active 2023 98636 86554 0 Three times daily as needed Topica l False Haloperidol lactate 2 mg/mL oral concentrate [generic] 0.5ml By Mouth Every 4 hours as needed For agitation 0.5ml 2023 Active 2023 19849 68482 4 Every 4 hours as needed By Mouth False Haloperidol lactate 2 mg/mL oral concentrate [generic] 0.25ml By Mouth Every 4 days as needed For nausea/vomiti ng 0.25ml 2023 Active 2023 85994 66560 4 Every 4 days as needed By Mouth False Ipratropium 0.5 mg-albutero l 3 mg (2.5 mg base)/3 mL nebulizatio n soln [generic] 3ml Inhalation Every 6 hours as needed via nebulization route For shortness of breath 3ml 2023 Active 2023 20884 94828 3 Every 6 hours as needed Inhala tion False Morphine concentrate 100 mg/5 mL (20 mg/mL) oral solution [generic] 0.25ml (5mg) By Mouth Every 2 hours as needed For shortness of breath or pain 0.25ml (5mg) 2023 Active 2023 00633 36393 1 Every 2 hours as needed By Mouth False Pregabalin 75 mg capsule [generic] 75 mg By Mouth 3 times a day For pain 75 mg 2023 Active 2023 83187 68607 9 3 times a day By Mouth False Senna 8.8 mg/5 mL oral syrup 5ml By Mouth Twice daily as needed For constipation 5ml 2023 Active 2023 43399 73970 8 Twice daily as needed By Mouth False Tramadol 50 mg tablet [generic] 50 mg By Mouth Twice daily For pain 50 mg 2023 Active 2023 85131 97009 0 Twice daily By Mouth False Zyprexa 2.5 mg tablet 2.5 mg By Mouth At bedtime For major depressive disorder 2.5 mg 2023 Active 2023 27079 38785 0 At bedtime By Mouth False Tylenol Extra Strength 500 mg tablet 500 mg By Mouth 3 times a day For pain 500 mg 2023 Active 2023 15082 20617 6 3 times a day By Mouth False Trazodone 50 mg tablet [generic] ONE HALF TAB 25mg By Mouth At bedtime For sleep 25mg 2023 Active 2023 09916 84794 1 At bedtime By Mouth False Klonopin 0.5 mg tablet 0.5mg By Mouth At bedtime For sleep 0.5mg 2023 Active 2023 84643 03866 2 At bedtime By Mouth False VITAL SIGNS Date Time Diastolic blood pressure Systolic blood pressure Body height Body weight Temperature SpO2 Blood Sugar Pulse Respirations 101 38723 8 55.00 mm[Hg] - Lying Down 154.00 mm[Hg] - Lying Down 154.00 NI 98.10 Forehead Scan 94.00 % 76.00/ min 18.00/min 101 01293 2 64 NI Immunizations Vaccine Date Status COVID-19 05/25/2020 Completed COVID-19 06/15/2020 Completed Influenza 05/12/2023 Completed (PCV20)Pneumococcal 05/12/2023 Completed
--- OUTSIDE RECORDS SUMMARY | 2024-04-08 21:56 | External Medical Summary | Continuity Of Care Document ---
Author Name Unknown Address [address] [address] Organization [facility] () Care Team Providers Care Giver Name Role Phone DO Woody Amy Primary Care Provider [phone] Allergies Allergy Reaction Start Date End Date [...] 3 0.1 mL 03/21 Inactiv e 2023 01459 53636 0 1 time Intrad ermal False Tubersol 5 tub. unit/0.1 mL intradermal injection solution [Tuberculin PPD] 0.1mL Intradermal 1 time For PPD 2nd Step Give 2nd Step PPD Day 1 and Read results Day 3 (schedule 7 days after 1st READ) 0.1mL 03/31 Active 2023 03733 58035 0 1 time Intrad ermal False Aspercreme (lidocaine HCl) 4 % topical 4 % Topical Three times daily as needed For pain to feet and legs 4 % 11/08 Inactiv e 2023 25176 39718 0 Three times daily as needed Topica l False Citalopram 20 mg tablet [generic] 20 mg By Mouth Once daily For anxiety 20 mg 11/08 Inactiv e 2023 01261 67260 1 Once daily By Mouth False Dulcolax (bisacodyl) 10 mg rectal suppository 10 mg Rectal Daily as needed For constipation 10 mg 11/12 Inactiv e 2023 23093 37012 1 Daily as needed Rectal False Citalopram 20 mg tablet [generic] 20 mg By Mouth Once daily For anxiety 20 mg 11/12 Inactiv e 2023 55982 72808 1 Once daily By Mouth False Aspercreme (lidocaine HCl) 4 % topical 4 % Topical Three times daily as needed For pain to feet and legs 4 % 11/12 Inactiv e 2023 40506 99696 0 Three times daily as needed Topica l False Haloperidol lactate 2 mg/mL oral concentrate [generic] 0.5ml By Mouth Every 4 hours as needed For agitation 0.5ml 11/12 Inactiv e 2023 10982 09364 4 Every 4 hours as needed By Mouth False Haloperidol lactate 2 mg/mL oral concentrate [generic] 0.25ml By Mouth Every 4 days as needed For nausea/vomiti ng 0.25ml 11/12 Inactiv e 2023 98964 27020 4 Every 4 days as needed By Mouth False Ipratropium 0.5 mg-albutero l 3 mg (2.5 mg base)/3 mL nebulizatio n soln [generic] 3ml Inhalation Every 6 hours as needed via nebulization route For shortness of breath 3ml 11/12 Inactiv e 2023 71237 87606 3 Every 6 hours as needed Inhala tion False Lactulose 10 gram/15 mL (15 mL) oral solution [generic] 10 gram/15 m By Mouth Once daily For constipation 10 gram/15 m 11/12 Inactiv e 2023 28927 58112 0 Once daily By Mouth False Morphine concentrate 100 mg/5 mL (20 mg/mL) oral solution [generic] 0.25ml (5mg) By Mouth Every 2 hours as needed For shortness of breath or pain 0.25ml (5mg) 11/12 Inactiv e 2023 11219 73703 1 Every 2 hours as needed By Mouth False Pantoprazol e 40 mg tablet,fern yed release [generic] 40 mg By Mouth Once daily For GERD 40 mg 11/12 Inactiv e 2023 39575 71874 0 Once daily By Mouth False Pregabalin 25 mg capsule [generic] 25 mg By Mouth 3 times a day For pain 25 mg 11/12 Inactiv e 2023 57526 40881 9 3 times a day By Mouth False Senna 8.8 mg/5 mL oral syrup 5ml By Mouth Twice daily as needed For constipation 5ml 11/09 Inactiv e 2023 86688 17802 8 Twice daily as needed By Mouth False Tramadol 50 mg tablet [generic] 50 mg By Mouth Twice daily For pain 50 mg 11/12 Inactiv e 2023 15371 18962 0 Twice daily By Mouth False Tylenol Arthritis Pain 650 mg tablet,exte nded release 650 mg By Mouth 3 times a day For pain 650 mg 11/08 Inactiv e 2023 97372 67462 1 3 times a day By Mouth False Xanax 0.25 mg tablet 0.25 mg By Mouth Three times daily as needed For anxiety 0.25 mg 11/12 Inactiv e 2023 33175 72126 1 Three times daily as needed By Mouth False Zyprexa 2.5 mg tablet 2.5 mg By Mouth At bedtime For major depressive disorder 2.5 mg 11/12 Inactiv e 2023 28929 43130 0 At bedtime By Mouth False Tylenol 325 mg tablet 650 mg By Mouth 3 times a day For pain 650 mg 11/09 Inactiv e 2023 00754 23582 0 3 times a day By Mouth False Tylenol Extra Strength 500 mg tablet 500 mg By Mouth 3 times a day For pain 500 mg 11/12 Inactiv e 2023 79085 03515 6 3 times a day By Mouth False Senna 8.8 mg/5 mL oral syrup Twice daily administer senna 5mL For constipation 8.8 mg/5 mL 11/12 Inactiv e 2023 13206 31788 8 Twice daily By Mouth False Dulcolax (bisacodyl) 10 mg rectal suppository 10 mg Rectal Daily as needed For constipation 10 mg 2023 Active 2023 83640 65965 1 Daily as needed Rectal False Citalopram 20 mg tablet [generic] 20 mg By Mouth Once daily For anxiety 20 mg 2023 Active 2023 79767 87419 1 Once daily By Mouth False Aspercreme (lidocaine HCl) 4 % topical 4 % Topical Three times daily as needed For pain to feet and legs 4 % 2023 Active 2023 37105 84814 0 Three times daily as needed Topica l False Haloperidol lactate 2 mg/mL oral concentrate [generic] 0.5ml By Mouth Every 4 hours as needed For agitation 0.5ml 2023 Active 2023 69513 34267 4 Every 4 hours as needed By Mouth False Haloperidol lactate 2 mg/mL oral concentrate [generic] 0.25ml By Mouth Every 4 days as needed For nausea/vomiti ng 0.25ml 2023 Active 2023 57896 98100 4 Every 4 days as needed By Mouth False Ipratropium 0.5 mg-albutero l 3 mg (2.5 mg base)/3 mL nebulizatio n soln [generic] 3ml Inhalation Every 6 hours as needed via nebulization route For shortness of breath 3ml 2023 Active 2023 81355 36337 3 Every 6 hours as needed Inhala tion False Lactulose 10 gram/15 mL (15 mL) oral solution [generic] 10 gram/15 m By Mouth Once daily For constipation 10 gram/15 m 2023 Active 2023 44614 40855 0 Once daily By Mouth False Morphine concentrate 100 mg/5 mL (20 mg/mL) oral solution [generic] 0.25ml (5mg) By Mouth Every 2 hours as needed For shortness of breath or pain 0.25ml (5mg) 2023 Active 2023 54739 39830 1 Every 2 hours as needed By Mouth False Pantoprazol e 40 mg tablet,fern yed release [generic] 40 mg By Mouth Once daily For GERD 40 mg 2023 Active 2023 53228 12243 0 Once daily By Mouth False Pregabalin 25 mg capsule [generic] 25 mg By Mouth 3 times a day For pain 25 mg 2023 Active 2023 92210 14238 9 3 times a day By Mouth False Tramadol 50 mg tablet [generic] 50 mg By Mouth Twice daily For pain 50 mg 2023 Active 2023 42988 50324 0 Twice daily By Mouth False Xanax 0.25 mg tablet 0.25 mg By Mouth Three times daily as needed For anxiety 0.25 mg 2023 Active 2023 55883 55309 1 Three times daily as needed By Mouth False Zyprexa 2.5 mg tablet 2.5 mg By Mouth At bedtime For major depressive disorder 2.5 mg 2023 Active 2023 75367 75655 0 At bedtime By Mouth False Tylenol Extra Strength 500 mg tablet 500 mg By Mouth 3 times a day For pain 500 mg 2023 Active 2023 26046 11603 6 3 times a day By Mouth False Senna 8.8 mg/5 mL oral syrup Twice daily administer senna 5mL For constipation 8.8 mg/5 mL 2023 Active 2023 71721 61835 8 Twice daily By Mouth False Dulcolax (bisacodyl) 10 mg rectal suppository 10 mg Rectal Daily as needed For constipation 10 mg 2023 Active 2023 75519 57502 1 Daily as needed Rectal False Citalopram 20 mg tablet [generic] 20 mg By Mouth Once daily For anxiety 20 mg 2023 Active 2023 56865 17346 1 Once daily By Mouth False Aspercreme (lidocaine HCl) 4 % topical 4 % Topical Three times daily as needed For pain to feet and legs 4 % 2023 Active 2023 58156 71360 0 Three times daily as needed Topica l False Haloperidol lactate 2 mg/mL oral concentrate [generic] 0.5ml By Mouth Every 4 hours as needed For agitation 0.5ml 2023 Active 2023 55507 38198 4 Every 4 hours as needed By Mouth False Haloperidol lactate 2 mg/mL oral concentrate [generic] 0.25ml By Mouth Every 4 days as needed For nausea/vomiti ng 0.25ml 2023 Active 2023 68774 67450 4 Every 4 days as needed By Mouth False Ipratropium 0.5 mg-albutero l 3 mg (2.5 mg base)/3 mL nebulizatio n soln [generic] 3ml Inhalation Every 6 hours as needed via nebulization route For shortness of breath 3ml 2023 Active 2023 96907 05509 3 Every 6 hours as needed Inhala tion False Lactulose 10 gram/15 mL (15 mL) oral solution [generic] 10 gram/15 m By Mouth Once daily For constipation 10 gram/15 m 2023 Active 2023 76796 06635 0 Once daily By Mouth False Morphine concentrate 100 mg/5 mL (20 mg/mL) oral solution [generic] 0.25ml (5mg) By Mouth Every 2 hours as needed For shortness of breath or pain 0.25ml (5mg) 2023 Active 2023 21937 52041 1 Every 2 hours as needed By Mouth False Pantoprazol e 40 mg tablet,fern yed release [generic] 40 mg By Mouth Once daily For GERD 40 mg 2023 Active 2023 58436 55844 0 Once daily By Mouth False Pregabalin 25 mg capsule [generic] 25 mg By Mouth 3 times a day For pain 25 mg 2023 Active 2023 53245 81775 9 3 times a day By Mouth False Tramadol 50 mg tablet [generic] 50 mg By Mouth Twice daily For pain 50 mg 2023 Active 2023 63194 52230 0 Twice daily By Mouth False Xanax 0.25 mg tablet 0.25 mg By Mouth Three times daily as needed For anxiety 0.25 mg 2023 Active 2023 55026 96891 1 Three times daily as needed By Mouth False Zyprexa 2.5 mg tablet 2.5 mg By Mouth At bedtime For major depressive disorder 2.5 mg 2023 Active 20232 89892 0 At bedtime By Mouth False Tylenol Extra Strength 500 mg tablet 500 mg By Mouth 3 times a day For pain 500 mg 2023 Active 2023 52789 37397 6 3 times a day By Mouth False Senna 8.8 mg/5 mL oral syrup Twice daily administer senna 5mL For constipation 8.8 mg/5 mL 2023 Active 2023 28132 13847 8 Twice daily By Mouth False Dulcolax (bisacodyl) 10 mg rectal suppository 10 mg Rectal Daily as needed For constipation 10 mg 2023 Active 2023 62005 08273 1 Daily as needed Rectal False Citalopram 20 mg tablet [generic] 20 mg By Mouth Once daily For anxiety 20 mg 2023 Active 2023 28890 27547 1 Once daily By Mouth False Aspercreme (lidocaine HCl) 4 % topical 4 % Topical Three times daily as needed For pain to feet and legs 4 % 2023 Active 2023 35242 14056 0 Three times daily as needed Topica l False Haloperidol lactate 2 mg/mL oral concentrate [generic] 0.5ml By Mouth Every 4 hours as needed For agitation 0.5ml 2023 Active 2023 77847 12985 4 Every 4 hours as needed By Mouth False Haloperidol lactate 2 mg/mL oral concentrate [generic] 0.25ml By Mouth Every 4 days as needed For nausea/vomiti ng 0.25ml 2023 Active 2023 56605 58473 4 Every 4 days as needed By Mouth False Ipratropium 0.5 mg-albutero l 3 mg (2.5 mg base)/3 mL nebulizatio n soln [generic] 3ml Inhalation Every 6 hours as needed via nebulization route For shortness of breath 3ml 2023 Active 2023 59776 78575 3 Every 6 hours as needed Inhala tion False Morphine concentrate 100 mg/5 mL (20 mg/mL) oral solution [generic] 0.25ml (5mg) By Mouth Every 2 hours as needed For shortness of breath or pain 0.25ml (5mg) 2023 Active 2023 63170 16114 1 Every 2 hours as needed By Mouth False Pregabalin 75 mg capsule [generic] 75 mg By Mouth 3 times a day For pain 75 mg 2023 Active 2023 10216 02109 9 3 times a day By Mouth False Senna 8.8 mg/5 mL oral syrup 5ml By Mouth Twice daily as needed For constipation 5ml 2023 Active 2023 13077 01070 8 Twice daily as needed By Mouth False Tramadol 50 mg tablet [generic] 50 mg By Mouth Twice daily For pain 50 mg 2023 Active 2023 60757 97766 0 Twice daily By Mouth False Zyprexa 2.5 mg tablet 2.5 mg By Mouth At bedtime For major depressive disorder 2.5 mg 2023 Active 2023 09396 09939 0 At bedtime By Mouth False Tylenol Extra Strength 500 mg tablet 500 mg By Mouth 3 times a day For pain 500 mg 2023 Active 2023 03356 78372 6 3 times a day By Mouth False Trazodone 50 mg tablet [generic] ONE HALF TAB 25mg By Mouth At bedtime For sleep 25mg 2023 Active 2023 16666 75921 1 At bedtime By Mouth False Klonopin 0.5 mg tablet 0.5mg By Mouth At bedtime For sleep 0.5mg 2023 Active 2023 94848 81648 2 At bedtime By Mouth False VITAL SIGNS Date Time Diastolic blood pressure Systolic blood pressure Body height Body weight Temperature SpO2 Blood Sugar Pulse Respirations 101 94671 8 55.00 mm[Hg] - Lying Down 154.00 mm[Hg] - Lying Down 154.00 NI 98.10 Forehead Scan 94.00 % 76.00/ min 18.00/min 101 76559 2 64 NI Immunizations Vaccine Date Status COVID-19 05/25/2020 Completed COVID-19 06/15/2020 Completed Influenza 05/12/2023 Completed (PCV20)Pneumococcal 05/12/2023 Completed
--- OUTSIDE RECORDS SUMMARY | 2024-04-08 21:56 | External Medical Summary | Continuity Of Care Document ---
Author Name Unknown Address [address] [address] Organization [facility] () Care Team Providers Care Family Member Caretaker Name Role Phone DO Woody Amy Primary Care Provider [phone] Allergies Allergy Reaction Start Date End Date Status LORAZEPAM Active PENICILLINS Hives, Rash Active Medications Medication Instructions Dosage Start Date End Date Status Order Date Drug Code Frequency Route of Admin Diagnosis Code Substitutions Allowed Aspercreme (lidocaine HCl) 4 % topical 4 % Topical Three times daily as needed For pain to feet and legs 4 % 11/08 Inactiv e 2023 03497 60190 0 Three times daily as needed Topica l False Citalopram 20 mg tablet [generic] 20 mg By Mouth Once daily For anxiety 20 mg 11/08 Inactiv e 2023 83419 32414 1 Once daily By Mouth False Dulcolax (bisacodyl) 10 mg rectal suppository 10 mg Rectal Daily as needed For constipation 10 mg 11/12 Inactiv e 2023 96417 27297 1 Daily as needed Rectal False Citalopram 20 mg tablet [generic] 20 mg By Mouth Once daily For anxiety 20 mg 11/12 Inactiv e 2023 53471 31342 1 Once daily By Mouth False Aspercreme (lidocaine HCl) 4 % topical 4 % Topical Three times daily as needed For pain to feet and legs 4 % 11/12 Inactiv e 2023 16528 40211 0 Three times daily as needed Topica l False Haloperidol lactate 2 mg/mL oral concentrate [generic] 0.5ml By Mouth Every 4 hours as needed For agitation 0.5ml 11/12 Inactiv e 2023 10876 67031 4 Every 4 hours as needed By Mouth False Haloperidol lactate 2 mg/mL oral concentrate [generic] 0.25ml By Mouth Every 4 days as needed For nausea/vomiti ng 0.25ml 11/12 Inactiv e 2023 89623 80858 4 Every 4 days as needed By Mouth False Ipratropium 0.5 mg-albutero l 3 mg (2.5 mg base)/3 mL nebulizatio n soln [generic] 3ml Inhalation Every 6 hours as needed via nebulization route For shortness of breath 3ml 11/12 Inactiv e 2023 78858 64743 3 Every 6 hours as needed Inhala tion False Lactulose 10 gram/15 mL (15 mL) oral solution [generic] 10 gram/15 m By Mouth Once daily For constipation 10 gram/15 m 11/12 Inactiv e 2023 35022 55721 0 Once daily By Mouth False Morphine concentrate 100 mg/5 mL (20 mg/mL) oral solution [generic] 0.25ml (5mg) By Mouth Every 2 hours as needed For shortness of breath or pain 0.25ml (5mg) 11/12 Inactiv e 2023 42602 85825 1 Every 2 hours as needed By Mouth False Pantoprazol e 40 mg tablet,fern yed release [generic] 40 mg By Mouth Once daily For GERD 40 mg 11/12 Inactiv e 2023 21000 77239 0 Once daily By Mouth False Pregabalin 25 mg capsule [generic] 25 mg By Mouth 3 times a day For pain 25 mg 11/12 Inactiv e 2023 61202 68320 9 3 times a day By Mouth False Senna 8.8 mg/5 mL oral syrup 5ml By Mouth Twice daily as needed For constipation 5ml 11/09 Inactiv e 2023 21514 34021 8 Twice daily as needed By Mouth False Tramadol 50 mg tablet [generic] 50 mg By Mouth Twice daily For pain 50 mg 11/12 Inactiv e 2023 45931 52382 0 Twice daily By Mouth False Tylenol Arthritis Pain 650 mg tablet,exte nded release 650 mg By Mouth 3 times a day For pain 650 mg 11/08 Inactiv e 2023 53531 55008 1 3 times a day By Mouth False Xanax 0.25 mg tablet 0.25 mg By Mouth Three times daily as needed For anxiety 0.25 mg 11/12 Inactiv e 2023 47368 79307 1 Three times daily as needed By Mouth False Zyprexa 2.5 mg tablet 2.5 mg By Mouth At bedtime For major depressive disorder 2.5 mg 11/12 Inactiv e 2023 10144 04772 0 At bedtime By Mouth False Tylenol 325 mg tablet 650 mg By Mouth 3 times a day For pain 650 mg 11/09 Inactiv e 2023 19047 30475 0 3 times a day By Mouth False Tylenol Extra Strength 500 mg tablet 500 mg By Mouth 3 times a day For pain 500 mg 11/12 Inactiv e 2023 04676 19909 6 3 times a day By Mouth False Senna 8.8 mg/5 mL oral syrup Twice daily administer senna 5mL For constipation 8.8 mg/5 mL 11/12 Inactiv e 2023 08184 59651 8 Twice daily By Mouth False Dulcolax (bisacodyl) 10 mg rectal suppository 10 mg Rectal Daily as needed For constipation 10 mg 2023 Active 2023 90946 88617 1 Daily as needed Rectal False Citalopram 20 mg tablet [generic] 20 mg By Mouth Once daily For anxiety 20 mg 2023 Active 2023 62760 80647 1 Once daily By Mouth False Aspercreme (lidocaine HCl) 4 % topical 4 % Topical Three times daily as needed For pain to feet and legs 4 % 2023 Active 2023 02133 57118 0 Three times daily as needed Topica l False Haloperidol lactate 2 mg/mL oral concentrate [generic] 0.5ml By Mouth Every 4 hours as needed For agitation 0.5ml 2023 Active 2023 72686 77411 4 Every 4 hours as needed By Mouth False Haloperidol lactate 2 mg/mL oral concentrate [generic] 0.25ml By Mouth Every 4 days as needed For nausea/vomiti ng 0.25ml 2023 Active 2023 73629 61344 4 Every 4 days as needed By Mouth False Ipratropium 0.5 mg-albutero l 3 mg (2.5 mg base)/3 mL nebulizatio n soln [generic] 3ml Inhalation Every 6 hours as needed via nebulization route For shortness of breath 3ml 2023 Active 2023 04780 12559 3 Every 6 hours as needed Inhala tion False Lactulose 10 gram/15 mL (15 mL) oral solution [generic] 10 gram/15 m By Mouth Once daily For constipation 10 gram/15 m 2023 Active 2023 08442 31989 0 Once daily By Mouth False Morphine concentrate 100 mg/5 mL (20 mg/mL) oral solution [generic] 0.25ml (5mg) By Mouth Every 2 hours as needed For shortness of breath or pain 0.25ml (5mg) 2023 Active 2023 71282 09808 1 Every 2 hours as needed By Mouth False Pantoprazol e 40 mg tablet,fern yed release [generic] 40 mg By Mouth Once daily For GERD 40 mg 2023 Active 2023 74268 72055 0 Once daily By Mouth False Pregabalin 25 mg capsule [generic] 25 mg By Mouth 3 times a day For pain 25 mg 2023 Active 2023 28690 44202 9 3 times a day By Mouth False Tramadol 50 mg tablet [generic] 50 mg By Mouth Twice daily For pain 50 mg 2023 Active 2023 64329 40217 0 Twice daily By Mouth False Xanax 0.25 mg tablet 0.25 mg By Mouth Three times daily as needed For anxiety 0.25 mg 2023 Active 2023 47159 08628 1 Three times daily as needed By Mouth False Zyprexa 2.5 mg tablet 2.5 mg By Mouth At bedtime For major depressive disorder 2.5 mg 2023 Active 2023 02988 29231 0 At bedtime By Mouth False Tylenol Extra Strength 500 mg tablet 500 mg By Mouth 3 times a day For pain 500 mg 2023 Active 2023 36390 53672 6 3 times a day By Mouth False Senna 8.8 mg/5 mL oral syrup Twice daily administer senna 5mL For constipation 8.8 mg/5 mL 2023 Active 2023 30990 95934 8 Twice daily By Mouth False Dulcolax (bisacodyl) 10 mg rectal suppository 10 mg Rectal Daily as needed For constipation 10 mg 2023 Active 2023 89600 25756 1 Daily as needed Rectal False Citalopram 20 mg tablet [generic] 20 mg By Mouth Once daily For anxiety 20 mg 2023 Active 2023 20363 30976 1 Once daily By Mouth False Aspercreme (lidocaine HCl) 4 % topical 4 % Topical Three times daily as needed For pain to feet and legs 4 % 2023 Active 2023 73767 67064 0 Three times daily as needed Topica l False Haloperidol lactate 2 mg/mL oral concentrate [generic] 0.5ml By Mouth Every 4 hours as needed For agitation 0.5ml 2023 Active 2023 79939 85169 4 Every 4 hours as needed By Mouth False Haloperidol lactate 2 mg/mL oral concentrate [generic] 0.25ml By Mouth Every 4 days as needed For nausea/vomiti ng 0.25ml 2023 Active 2023 70944 20864 4 Every 4 days as needed By Mouth False Ipratropium 0.5 mg-albutero l 3 mg (2.5 mg base)/3 mL nebulizatio n soln [generic] 3ml Inhalation Every 6 hours as needed via nebulization route For shortness of breath 3ml 2023 Active 2023 06342 80353 3 Every 6 hours as needed Inhala tion False Lactulose 10 gram/15 mL (15 mL) oral solution [generic] 10 gram/15 m By Mouth Once daily For constipation 10 gram/15 m 2023 Active 2023 74475 28021 0 Once daily By Mouth False Morphine concentrate 100 mg/5 mL (20 mg/mL) oral solution [generic] 0.25ml (5mg) By Mouth Every 2 hours as needed For shortness of breath or pain 0.25ml (5mg) 2023 Active 2023 64274 52449 1 Every 2 hours as needed By Mouth False Pantoprazol e 40 mg tablet,fern yed release [generic] 40 mg By Mouth Once daily For GERD 40 mg 2023 Active 2023 07404 67960 0 Once daily By Mouth False Pregabalin 25 mg capsule [generic] 25 mg By Mouth 3 times a day For pain 25 mg 2023 Active 2023 26029 96124 9 3 times a day By Mouth False Tramadol 50 mg tablet [generic] 50 mg By Mouth Twice daily For pain 50 mg 2023 Active 2023 81651 18432 0 Twice daily By Mouth False Xanax 0.25 mg tablet 0.25 mg By Mouth Three times daily as needed For anxiety 0.25 mg 2023 Active 2023 54688 72974 1 Three times daily as needed By Mouth False Zyprexa 2.5 mg tablet 2.5 mg By Mouth At bedtime For major depressive disorder 2.5 mg 2023 Active 2023 94835 71096 0 At bedtime By Mouth False Tylenol Extra Strength 500 mg tablet 500 mg By Mouth 3 times a day For pain 500 mg 2023 Active 2023 58645 17146 6 3 times a day By Mouth False Senna 8.8 mg/5 mL oral syrup Twice daily administer senna 5mL For constipation 8.8 mg/5 mL 2023 Active 2023 52581 82382 8 Twice daily By Mouth False Dulcolax (bisacodyl) 10 mg rectal suppository 10 mg Rectal Daily as needed For constipation 10 mg 2023 Active 2023 18746 35223 1 Daily as needed Rectal False Citalopram 20 mg tablet [generic] 20 mg By Mouth Once daily For anxiety 20 mg 2023 Active 2023 74266 89913 1 Once daily By Mouth False Aspercreme (lidocaine HCl) 4 % topical 4 % Topical Three times daily as needed For pain to feet and legs 4 % 2023 Active 2023 18098 37578 0 Three times daily as needed Topica l False Haloperidol lactate 2 mg/mL oral concentrate [generic] 0.5ml By Mouth Every 4 hours as needed For agitation 0.5ml 2023 Active 2023 35763 48365 4 Every 4 hours as needed By Mouth False Haloperidol lactate 2 mg/mL oral concentrate [generic] 0.25ml By Mouth Every 4 days as needed For nausea/vomiti ng 0.25ml 2023 Active 2023 09099 98433 4 Every 4 days as needed By Mouth False Ipratropium 0.5 mg-albutero l 3 mg (2.5 mg base)/3 mL nebulizatio n soln [generic] 3ml Inhalation Every 6 hours as needed via nebulization route For shortness of breath 3ml 2023 Active 2023 00648 08131 3 Every 6 hours as needed Inhala tion False Morphine concentrate 100 mg/5 mL (20 mg/mL) oral solution [generic] 0.25ml (5mg) By Mouth Every 2 hours as needed For shortness of breath or pain 0.25ml (5mg) 2023 Active 2023 33012 27494 1 Every 2 hours as needed By Mouth False Pregabalin 75 mg capsule [generic] 75 mg By Mouth 3 times a day For pain 75 mg 2023 Active 2023 77913 74931 9 3 times a day By Mouth False Senna 8.8 mg/5 mL oral syrup 5ml By Mouth Twice daily as needed For constipation 5ml 2023 Active 2023 08885 26979 8 Twice daily as needed By Mouth False Tramadol 50 mg tablet [generic] 50 mg By Mouth Twice daily For pain 50 mg 2023 Active 2023 57179 33960 0 Twice daily By Mouth False Zyprexa 2.5 mg tablet 2.5 mg By Mouth At bedtime For major depressive disorder 2.5 mg 2023 Active 2023 50222 35535 0 At bedtime By Mouth False Tylenol Extra Strength 500 mg tablet 500 mg By Mouth 3 times a day For pain 500 mg 2023 Active 2023 74999 09309 6 3 times a day By Mouth False Trazodone 50 mg tablet [generic] ONE HALF TAB 25mg By Mouth At bedtime For sleep 25mg 2023 Active 2023 19126 26123 1 At bedtime By Mouth False Klonopin 0.5 mg tablet 0.5mg By Mouth At bedtime For sleep 0.5mg 2023 Active 2023 83030 2 At bedtime By Mouth False VITAL SIGNS Date Time Diastolic blood pressure Systolic blood pressure Body height Body weight Temperature SpO2 Blood Sugar Pulse Respirations 34909 101 89326 8 55.00 mm[Hg] - Lying Down 154.00 mm[Hg] - Lying Down 154.00 NI 98.10 Forehead Scan 94.00 % 76.00/ min 18.00/min 101 18423 2 64 NI Immunizations Vaccine Date Status COVID-19 05/25/2020 Completed COVID-19 06/15/2020 Completed Influenza 05/12/2023 Completed (PCV20)Pneumococcal 05/12/2023 Completed
--- OUTSIDE RECORDS SUMMARY | 2024-04-08 21:56 | External Medical Summary | Continuity Of Care Document ---
Author Name Unknown Address [address] [address] Organization [facility] () Care Team Providers Care Director Selection And Administration Name Role Phone DO Woody Amy Primary Care Provider [phone] Allergies Allergy Reaction Start Date End Date [...] Day 3 0.1 mL 03/21 Active 2023 44520 53173 0 1 time Intrad ermal False Tubersol 5 tub. unit/0.1 mL intradermal injection solution [Tuberculin PPD] 0.1mL Intradermal 1 time For PPD 2nd Step Give 2nd Step PPD Day 1 and Read results Day 3 (schedule 7 days after 1st READ) 0.1mL 03/31 Active 2023 33406 79404 0 1 time Intrad ermal False Aspercreme (lidocaine HCl) 4 % topical 4 % Topical Three times daily as needed For pain to feet and legs 4 % 11/08 Inactiv e 2023 62066 31904 0 Three times daily as needed Topica l False Citalopram 20 mg tablet [generic] 20 mg By Mouth Once daily For anxiety 20 mg 11/08 Inactiv e 2023 87432 53035 1 Once daily By Mouth False Dulcolax (bisacodyl) 10 mg rectal suppository 10 mg Rectal Daily as needed For constipation 10 mg 11/12 Inactiv e 2023 10701 52619 1 Daily as needed Rectal False Citalopram 20 mg tablet [generic] 20 mg By Mouth Once daily For anxiety 20 mg 11/12 Inactiv e 2023 04774 18998 1 Once daily By Mouth False Aspercreme (lidocaine HCl) 4 % topical 4 % Topical Three times daily as needed For pain to feet and legs 4 % 11/12 Inactiv e 2023 68597 22785 0 Three times daily as needed Topica l False Haloperidol lactate 2 mg/mL oral concentrate [generic] 0.5ml By Mouth Every 4 hours as needed For agitation 0.5ml 11/12 Inactiv e 2023 48841 94663 4 Every 4 hours as needed By Mouth False Haloperidol lactate 2 mg/mL oral concentrate [generic] 0.25ml By Mouth Every 4 days as needed For nausea/vomiti ng 0.25ml 11/12 Inactiv e 2023 59687 16240 4 Every 4 days as needed By Mouth False Ipratropium 0.5 mg-albutero l 3 mg (2.5 mg base)/3 mL nebulizatio n soln [generic] 3ml Inhalation Every 6 hours as needed via nebulization route For shortness of breath 3ml 11/12 Inactiv e 2023 86577 94877 3 Every 6 hours as needed Inhala tion False Lactulose 10 gram/15 mL (15 mL) oral solution [generic] 10 gram/15 m By Mouth Once daily For constipation 10 gram/15 m 11/12 Inactiv e 2023 79018 58561 0 Once daily By Mouth False Morphine concentrate 100 mg/5 mL (20 mg/mL) oral solution [generic] 0.25ml (5mg) By Mouth Every 2 hours as needed For shortness of breath or pain 0.25ml (5mg) 11/12 Inactiv e 2023 32051 25589 1 Every 2 hours as needed By Mouth False Pantoprazol e 40 mg tablet,fern yed release [generic] 40 mg By Mouth Once daily For GERD 40 mg 11/12 Inactiv e 2023 31238 12335 0 Once daily By Mouth False Pregabalin 25 mg capsule [generic] 25 mg By Mouth 3 times a day For pain 25 mg 11/12 Inactiv e 2023 34201 43397 9 3 times a day By Mouth False Senna 8.8 mg/5 mL oral syrup 5ml By Mouth Twice daily as needed For constipation 5ml 11/09 Inactiv e 2023 65944 23492 8 Twice daily as needed By Mouth False Tramadol 50 mg tablet [generic] 50 mg By Mouth Twice daily For pain 50 mg 11/12 Inactiv e 2023 68188 73699 0 Twice daily By Mouth False Tylenol Arthritis Pain 650 mg tablet,exte nded release 650 mg By Mouth 3 times a day For pain 650 mg 11/08 Inactiv e 2023 51033 10393 1 3 times a day By Mouth False Xanax 0.25 mg tablet 0.25 mg By Mouth Three times daily as needed For anxiety 0.25 mg 11/12 Inactiv e 2023 10002 21648 1 Three times daily as needed By Mouth False Zyprexa 2.5 mg tablet 2.5 mg By Mouth At bedtime For major depressive disorder 2.5 mg 11/12 Inactiv e 2023 82487 17846 0 At bedtime By Mouth False Tylenol 325 mg tablet 650 mg By Mouth 3 times a day For pain 650 mg 11/09 Inactiv e 2023 72499 65866 0 3 times a day By Mouth False Tylenol Extra Strength 500 mg tablet 500 mg By Mouth 3 times a day For pain 500 mg 11/12 Inactiv e 2023 70548 37883 6 3 times a day By Mouth False Senna 8.8 mg/5 mL oral syrup Twice daily administer senna 5mL For constipation 8.8 mg/5 mL 11/12 Inactiv e 2023 25682 07947 8 Twice daily By Mouth False Dulcolax (bisacodyl) 10 mg rectal suppository 10 mg Rectal Daily as needed For constipation 10 mg 2023 Active 2023 80973 92134 1 Daily as needed Rectal False Citalopram 20 mg tablet [generic] 20 mg By Mouth Once daily For anxiety 20 mg 2023 Active 2023 05266 88460 1 Once daily By Mouth False Aspercreme (lidocaine HCl) 4 % topical 4 % Topical Three times daily as needed For pain to feet and legs 4 % 2023 Active 2023 39130 22154 0 Three times daily as needed Topica l False Haloperidol lactate 2 mg/mL oral concentrate [generic] 0.5ml By Mouth Every 4 hours as needed For agitation 0.5ml 2023 Active 2023 17693 84248 4 Every 4 hours as needed By Mouth False Haloperidol lactate 2 mg/mL oral concentrate [generic] 0.25ml By Mouth Every 4 days as needed For nausea/vomiti ng 0.25ml 2023 Active 2023 78242 05385 4 Every 4 days as needed By Mouth False Ipratropium 0.5 mg-albutero l 3 mg (2.5 mg base)/3 mL nebulizatio n soln [generic] 3ml Inhalation Every 6 hours as needed via nebulization route For shortness of breath 3ml 2023 Active 2023 65435 36841 3 Every 6 hours as needed Inhala tion False Lactulose 10 gram/15 mL (15 mL) oral solution [generic] 10 gram/15 m By Mouth Once daily For constipation 10 gram/15 m 2023 Active 2023 54043 25563 0 Once daily By Mouth False Morphine concentrate 100 mg/5 mL (20 mg/mL) oral solution [generic] 0.25ml (5mg) By Mouth Every 2 hours as needed For shortness of breath or pain 0.25ml (5mg) 2023 Active 2023 60605 18568 1 Every 2 hours as needed By Mouth False Pantoprazol e 40 mg tablet,fern yed release [generic] 40 mg By Mouth Once daily For GERD 40 mg 2023 Active 2023 62173 31653 0 Once daily By Mouth False Pregabalin 25 mg capsule [generic] 25 mg By Mouth 3 times a day For pain 25 mg 2023 Active 2023 33504 10296 9 3 times a day By Mouth False Tramadol 50 mg tablet [generic] 50 mg By Mouth Twice daily For pain 50 mg 2023 Active 2023 01104 77630 0 Twice daily By Mouth False Xanax 0.25 mg tablet 0.25 mg By Mouth Three times daily as needed For anxiety 0.25 mg 2023 Active 2023 52773 47015 1 Three times daily as needed By Mouth False Zyprexa 2.5 mg tablet 2.5 mg By Mouth At bedtime For major depressive disorder 2.5 mg 2023 Active 2023 10380 77739 0 At bedtime By Mouth False Tylenol Extra Strength 500 mg tablet 500 mg By Mouth 3 times a day For pain 500 mg 2023 Active 2023 75031 66457 6 3 times a day By Mouth False Senna 8.8 mg/5 mL oral syrup Twice daily administer senna 5mL For constipation 8.8 mg/5 mL 2023 Active 2023 31887 90924 8 Twice daily By Mouth False Dulcolax (bisacodyl) 10 mg rectal suppository 10 mg Rectal Daily as needed For constipation 10 mg 2023 Active 2023 54303 96957 1 Daily as needed Rectal False Citalopram 20 mg tablet [generic] 20 mg By Mouth Once daily For anxiety 20 mg 2023 Active 2023 09198 01963 1 Once daily By Mouth False Aspercreme (lidocaine HCl) 4 % topical 4 % Topical Three times daily as needed For pain to feet and legs 4 % 2023 Active 2023 67255 62150 0 Three times daily as needed Topica l False Haloperidol lactate 2 mg/mL oral concentrate [generic] 0.5ml By Mouth Every 4 hours as needed For agitation 0.5ml 2023 Active 2023 56624 30974 4 Every 4 hours as needed By Mouth False Haloperidol lactate 2 mg/mL oral concentrate [generic] 0.25ml By Mouth Every 4 days as needed For nausea/vomiti ng 0.25ml 2023 Active 202321 98870 4 Every 4 days as needed By Mouth False Ipratropium 0.5 mg-albutero l 3 mg (2.5 mg base)/3 mL nebulizatio n soln [generic] 3ml Inhalation Every 6 hours as needed via nebulization route For shortness of breath 3ml 2023 Active 2023 19771 08703 3 Every 6 hours as needed Inhala tion False Lactulose 10 gram/15 mL (15 mL) oral solution [generic] 10 gram/15 m By Mouth Once daily For constipation 10 gram/15 m 2023 Active 2023 75247 30611 0 Once daily By Mouth False Morphine concentrate 100 mg/5 mL (20 mg/mL) oral solution [generic] 0.25ml (5mg) By Mouth Every 2 hours as needed For shortness of breath or pain 0.25ml (5mg) 2023 Active 2023 30287 21371 1 Every 2 hours as needed By Mouth False Pantoprazol e 40 mg tablet,fern yed release [generic] 40 mg By Mouth Once daily For GERD 40 mg 2023 Active 2023 42496 65901 0 Once daily By Mouth False Pregabalin 25 mg capsule [generic] 25 mg By Mouth 3 times a day For pain 25 mg 2023 Active 2023 03995 62520 9 3 times a day By Mouth False Tramadol 50 mg tablet [generic] 50 mg By Mouth Twice daily For pain 50 mg 2023 Active 2023 97789 32883 0 Twice daily By Mouth False Xanax 0.25 mg tablet 0.25 mg By Mouth Three times daily as needed For anxiety 0.25 mg 2023 Active 2023 18444 02570 1 Three times daily as needed By Mouth False Zyprexa 2.5 mg tablet 2.5 mg By Mouth At bedtime For major depressive disorder 2.5 mg 2023 Active 2023 57994 72546 0 At bedtime By Mouth False Tylenol Extra Strength 500 mg tablet 500 mg By Mouth 3 times a day For pain 500 mg 2023 Active 2023 52715 23143 6 3 times a day By Mouth False Senna 8.8 mg/5 mL oral syrup Twice daily administer senna 5mL For constipation 8.8 mg/5 mL 2023 Active 2023 76887 25764 8 Twice daily By Mouth False Dulcolax (bisacodyl) 10 mg rectal suppository 10 mg Rectal Daily as needed For constipation 10 mg 2023 Active 2023 06172 70736 1 Daily as needed Rectal False Citalopram 20 mg tablet [generic] 20 mg By Mouth Once daily For anxiety 20 mg 2023 Active 2023 07253 57900 1 Once daily By Mouth False Aspercreme (lidocaine HCl) 4 % topical 4 % Topical Three times daily as needed For pain to feet and legs 4 % 2023 Active 2023 53372 83030 0 Three times daily as needed Topica l False Haloperidol lactate 2 mg/mL oral concentrate [generic] 0.5ml By Mouth Every 4 hours as needed For agitation 0.5ml 2023 Active 2023 02322 93591 4 Every 4 hours as needed By Mouth False Haloperidol lactate 2 mg/mL oral concentrate [generic] 0.25ml By Mouth Every 4 days as needed For nausea/vomiti ng 0.25ml 2023 Active 2023 88959 40507 4 Every 4 days as needed By Mouth False Ipratropium 0.5 mg-albutero l 3 mg (2.5 mg base)/3 mL nebulizatio n soln [generic] 3ml Inhalation Every 6 hours as needed via nebulization route For shortness of breath 3ml 2023 Active 2023 38696 19808 3 Every 6 hours as needed Inhala tion False Morphine concentrate 100 mg/5 mL (20 mg/mL) oral solution [generic] 0.25ml (5mg) By Mouth Every 2 hours as needed For shortness of breath or pain 0.25ml (5mg) 2023 Active 2023 00725 16296 1 Every 2 hours as needed By Mouth False Pregabalin 75 mg capsule [generic] 75 mg By Mouth 3 times a day For pain 75 mg 2023 Active 2023 55178 86443 9 3 times a day By Mouth False Senna 8.8 mg/5 mL oral syrup 5ml By Mouth Twice daily as needed For constipation 5ml 2023 Active 2023 71634 55593 8 Twice daily as needed By Mouth False Tramadol 50 mg tablet [generic] 50 mg By Mouth Twice daily For pain 50 mg 2023 Active 2023 21820 88333 0 Twice daily By Mouth False Zyprexa 2.5 mg tablet 2.5 mg By Mouth At bedtime For major depressive disorder 2.5 mg 2023 Active 2023 48363 44682 0 At bedtime By Mouth False Tylenol Extra Strength 500 mg tablet 500 mg By Mouth 3 times a day For pain 500 mg 2023 Active 2023 30531 36358 6 3 times a day By Mouth False Trazodone 50 mg tablet [generic] ONE HALF TAB 25mg By Mouth At bedtime For sleep 25mg 2023 Active 2023 73383 54389 1 At bedtime By Mouth False Klonopin 0.5 mg tablet 0.5mg By Mouth At bedtime For sleep 0.5mg 2023 Active 2023 30442 79385 2 At bedtime By Mouth False VITAL SIGNS Date Time Diastolic blood pressure Systolic blood pressure Body height Body weight Temperature SpO2 Blood Sugar Pulse Respirations 101 95009 8 55.00 mm[Hg] - Lying Down 154.00 mm[Hg] - Lying Down 154.00 NI 98.10 Forehead Scan 94.00 % 76.00/ min 18.00/min 101 89233 2 64 NI Immunizations Vaccine Date Status COVID-19 05/25/2020 Completed COVID-19 06/15/2020 Completed Influenza 05/12/2023 Completed (PCV20)Pneumococcal 05/12/2023 Completed
--- OUTSIDE RECORDS SUMMARY | 2024-04-08 21:56 | External Medical Summary | Continuity Of Care Document ---
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 unit/0.1 mL intradermal injection solution [Tuberculin PPD] 0.1mL Intradermal 1 time For PPD 2nd Step Give 2nd Step PPD Day 1 and Read results Day 3 (schedule 7 days after 1st READ) 0.1mL 03/31 Active 2023 95496 59629 0 1 time Intrad ermal False Tubersol 5 tub. unit/0.1 mL intradermal injection solution [Tuberculin PPD] 0.1mL Intradermal 1 time For PPD 2nd Step Give 2nd Step PPD Day 1 and Read results Day 3 (schedule 7 days after 1st READ) 0.1mL 2023 Active 2023 98396 12699 0 1 time Intrad ermal False Tubersol 5 tub. unit/0.1 mL intradermal injection solution [Tuberculin PPD] 0.1mL Intradermal 1 time For PPD 2nd Step Give 2nd Step PPD Day 1 and Read results Day 3 (schedule 7 days after 1st READ) 0.1mL 03/25 Active 2023 58906 29056 0 1 time Intrad ermal False Aspercreme (lidocaine HCl) 4 % topical 4 % Topical Three times daily as needed For pain to feet and legs 4 % 11/08 Inactiv e 2023 29986 49957 0 Three times daily as needed Topica l False Citalopram 20 mg tablet [generic] 20 mg By Mouth Once daily For anxiety 20 mg 11/08 Inactiv e 2023 13291 97838 1 Once daily By Mouth False Dulcolax (bisacodyl) 10 mg rectal suppository 10 mg Rectal Daily as needed For constipation 10 mg 11/12 Inactiv e 2023 18225 39287 1 Daily as needed Rectal False Citalopram 20 mg tablet [generic] 20 mg By Mouth Once daily For anxiety 20 mg 11/12 Inactiv e 2023 41300 62648 1 Once daily By Mouth False Aspercreme (lidocaine HCl) 4 % topical 4 % Topical Three times daily as needed For pain to feet and legs 4 % 11/12 Inactiv e 2023 38585 22290 0 Three times daily as needed Topica l False Haloperidol lactate 2 mg/mL oral concentrate [generic] 0.5ml By Mouth Every 4 hours as needed For agitation 0.5ml 11/12 Inactiv e 2023 94501 77455 4 Every 4 hours as needed By Mouth False Haloperidol lactate 2 mg/mL oral concentrate [generic] 0.25ml By Mouth Every 4 days as needed For nausea/vomiti ng 0.25ml 11/12 Inactiv e 2023 73595 10479 4 Every 4 days as needed By Mouth False Ipratropium 0.5 mg-albutero l 3 mg (2.5 mg base)/3 mL nebulizatio n soln [generic] 3ml Inhalation Every 6 hours as needed via nebulization route For shortness of breath 3ml 11/12 Inactiv e 2023 90193 77699 3 Every 6 hours as needed Inhala tion False Lactulose 10 gram/15 mL (15 mL) oral solution [generic] 10 gram/15 m By Mouth Once daily For constipation 10 gram/15 m 11/12 Inactiv e 2023 65541 24543 0 Once daily By Mouth False Morphine concentrate 100 mg/5 mL (20 mg/mL) oral solution [generic] 0.25ml (5mg) By Mouth Every 2 hours as needed For shortness of breath or pain 0.25ml (5mg) 11/12 Inactiv e 2023 33294 84988 1 Every 2 hours as needed By Mouth False Pantoprazol e 40 mg tablet,fern yed release [generic] 40 mg By Mouth Once daily For GERD 40 mg 11/12 Inactiv e 2023 88048 63442 0 Once daily By Mouth False Pregabalin 25 mg capsule [generic] 25 mg By Mouth 3 times a day For pain 25 mg 11/12 Inactiv e 2023 32356 02717 9 3 times a day By Mouth False Senna 8.8 mg/5 mL oral syrup 5ml By Mouth Twice daily as needed For constipation 5ml 11/09 Inactiv e 2023 51644 85410 8 Twice daily as needed By Mouth False Tramadol 50 mg tablet [generic] 50 mg By Mouth Twice daily For pain 50 mg 11/12 Inactiv e 2023 08833 72479 0 Twice daily By Mouth False Tylenol Arthritis Pain 650 mg tablet,exte nded release 650 mg By Mouth 3 times a day For pain 650 mg 11/08 Inactiv e 2023 96823 15625 1 3 times a day By Mouth False Xanax 0.25 mg tablet 0.25 mg By Mouth Three times daily as needed For anxiety 0.25 mg 11/12 Inactiv e 2023 47308 81820 1 Three times daily as needed By Mouth False Zyprexa 2.5 mg tablet 2.5 mg By Mouth At bedtime For major depressive disorder 2.5 mg 11/12 Inactiv e 2023 78023 29656 0 At bedtime By Mouth False Tylenol 325 mg tablet 650 mg By Mouth 3 times a day For pain 650 mg 11/09 Inactiv e 2023 76635 10966 0 3 times a day By Mouth False Tylenol Extra Strength 500 mg tablet 500 mg By Mouth 3 times a day For pain 500 mg 11/12 Inactiv e 2023 38302 59498 6 3 times a day By Mouth False Senna 8.8 mg/5 mL oral syrup Twice daily administer senna 5mL For constipation 8.8 mg/5 mL 11/12 Inactiv e 2023 15889 45176 8 Twice daily By Mouth False Dulcolax (bisacodyl) 10 mg rectal suppository 10 mg Rectal Daily as needed For constipation 10 mg 2023 Active 2023 75056 48440 1 Daily as needed Rectal False Citalopram 20 mg tablet [generic] 20 mg By Mouth Once daily For anxiety 20 mg 2023 Active 2023 78793 26403 1 Once daily By Mouth False Aspercreme (lidocaine HCl) 4 % topical 4 % Topical Three times daily as needed For pain to feet and legs 4 % 2023 Active 2023 30090 87265 0 Three times daily as needed Topica l False Haloperidol lactate 2 mg/mL oral concentrate [generic] 0.5ml By Mouth Every 4 hours as needed For agitation 0.5ml 2023 Active 2023 05864 12606 4 Every 4 hours as needed By Mouth False Haloperidol lactate 2 mg/mL oral concentrate [generic] 0.25ml By Mouth Every 4 days as needed For nausea/vomiti ng 0.25ml 2023 Active 2023 63681 99348 4 Every 4 days as needed By Mouth False Ipratropium 0.5 mg-albutero l 3 mg (2.5 mg base)/3 mL nebulizatio n soln [generic] 3ml Inhalation Every 6 hours as needed via nebulization route For shortness of breath 3ml 2023 Active 2023 61996 75314 3 Every 6 hours as needed Inhala tion False Lactulose 10 gram/15 mL (15 mL) oral solution [generic] 10 gram/15 m By Mouth Once daily For constipation 10 gram/15 m 2023 Active 2023 35511 68610 0 Once daily By Mouth False Morphine concentrate 100 mg/5 mL (20 mg/mL) oral solution [generic] 0.25ml (5mg) By Mouth Every 2 hours as needed For shortness of breath or pain 0.25ml (5mg) 2023 Active 2023 39428 54686 1 Every 2 hours as needed By Mouth False Pantoprazol e 40 mg tablet,fern yed release [generic] 40 mg By Mouth Once daily For GERD 40 mg 2023 Active 2023 45431 69779 0 Once daily By Mouth False Pregabalin 25 mg capsule [generic] 25 mg By Mouth 3 times a day For pain 25 mg 2023 Active 2023 35836 40527 9 3 times a day By Mouth False Tramadol 50 mg tablet [generic] 50 mg By Mouth Twice daily For pain 50 mg 2023 Active 2023 60477 88836 0 Twice daily By Mouth False Xanax 0.25 mg tablet 0.25 mg By Mouth Three times daily as needed For anxiety 0.25 mg 2023 Active 2023 05063 78718 1 Three times daily as needed By Mouth False Zyprexa 2.5 mg tablet 2.5 mg By Mouth At bedtime For major depressive disorder 2.5 mg 2023 Active 2023 32142 36816 0 At bedtime By Mouth False Tylenol Extra Strength 500 mg tablet 500 mg By Mouth 3 times a day For pain 500 mg 2023 Active 2023 17367 29151 6 3 times a day By Mouth False Senna 8.8 mg/5 mL oral syrup Twice daily administer senna 5mL For constipation 8.8 mg/5 mL 2023 Active 2023 13846 57069 8 Twice daily By Mouth False Dulcolax (bisacodyl) 10 mg rectal suppository 10 mg Rectal Daily as needed For constipation 10 mg 2023 Active 2023 14743 08991 1 Daily as needed Rectal False Citalopram 20 mg tablet [generic] 20 mg By Mouth Once daily For anxiety 20 mg 2023 Active 2023 82368 48287 1 Once daily By Mouth False Aspercreme (lidocaine HCl) 4 % topical 4 % Topical Three times daily as needed For pain to feet and legs 4 % 2023 Active 2023 07312 33648 0 Three times daily as needed Topica l False Haloperidol lactate 2 mg/mL oral concentrate [generic] 0.5ml By Mouth Every 4 hours as needed For agitation 0.5ml 2023 Active 202321 62834 4 Every 4 hours as needed By Mouth False Haloperidol lactate 2 mg/mL oral concentrate [generic] 0.25ml By Mouth Every 4 days as needed For nausea/vomiti ng 0.25ml 2023 Active 202321 18934 4 Every 4 days as needed By Mouth False Ipratropium 0.5 mg-albutero l 3 mg (2.5 mg base)/3 mL nebulizatio n soln [generic] 3ml Inhalation Every 6 hours as needed via nebulization route For shortness of breath 3ml 2023 Active 2023 30798 29628 3 Every 6 hours as needed Inhala tion False Lactulose 10 gram/15 mL (15 mL) oral solution [generic] 10 gram/15 m By Mouth Once daily For constipation 10 gram/15 m 2023 Active 2023 38262 55597 0 Once daily By Mouth False Morphine concentrate 100 mg/5 mL (20 mg/mL) oral solution [generic] 0.25ml (5mg) By Mouth Every 2 hours as needed For shortness of breath or pain 0.25ml (5mg) 2023 Active 2023 80926 65187 1 Every 2 hours as needed By Mouth False Pantoprazol e 40 mg tablet,fern yed release [generic] 40 mg By Mouth Once daily For GERD 40 mg 2023 Active 2023 84390 68924 0 Once daily By Mouth False Pregabalin 25 mg capsule [generic] 25 mg By Mouth 3 times a day For pain 25 mg 2023 Active 2023 85771 27626 9 3 times a day By Mouth False Tramadol 50 mg tablet [generic] 50 mg By Mouth Twice daily For pain 50 mg 2023 Active 2023 27512 42830 0 Twice daily By Mouth False Xanax 0.25 mg tablet 0.25 mg By Mouth Three times daily as needed For anxiety 0.25 mg 2023 Active 2023 47925 65925 1 Three times daily as needed By Mouth False Zyprexa 2.5 mg tablet 2.5 mg By Mouth At bedtime For major depressive disorder 2.5 mg 2023 Active 2023 35258 69487 0 At bedtime By Mouth False Tylenol Extra Strength 500 mg tablet 500 mg By Mouth 3 times a day For pain 500 mg 2023 Active 2023 91338 75237 6 3 times a day By Mouth False Senna 8.8 mg/5 mL oral syrup Twice daily administer senna 5mL For constipation 8.8 mg/5 mL 2023 Active 2023 36574 66624 8 Twice daily By Mouth False Dulcolax (bisacodyl) 10 mg rectal suppository 10 mg Rectal Daily as needed For constipation 10 mg 2023 Active 2023 76386 59947 1 Daily as needed Rectal False Citalopram 20 mg tablet [generic] 20 mg By Mouth Once daily For anxiety 20 mg 2023 Active 2023 60346 63260 1 Once daily By Mouth False Aspercreme (lidocaine HCl) 4 % topical 4 % Topical Three times daily as needed For pain to feet and legs 4 % 2023 Active 2023 64034 97409 0 Three times daily as needed Topica l False Haloperidol lactate 2 mg/mL oral concentrate [generic] 0.5ml By Mouth Every 4 hours as needed For agitation 0.5ml 2023 Active 2023 80562 22939 4 Every 4 hours as needed By Mouth False Haloperidol lactate 2 mg/mL oral concentrate [generic] 0.25ml By Mouth Every 4 days as needed For nausea/vomiti ng 0.25ml 2023 Active 2023 84368 73844 4 Every 4 days as needed By Mouth False Ipratropium 0.5 mg-albutero l 3 mg (2.5 mg base)/3 mL nebulizatio n soln [generic] 3ml Inhalation Every 6 hours as needed via nebulization route For shortness of breath 3ml 2023 Active 2023 72985 75907 3 Every 6 hours as needed Inhala tion False Morphine concentrate 100 mg/5 mL (20 mg/mL) oral solution [generic] 0.25ml (5mg) By Mouth Every 2 hours as needed For shortness of breath or pain 0.25ml (5mg) 2023 Active 2023 59338 87616 1 Every 2 hours as needed By Mouth False Pregabalin 75 mg capsule [generic] 75 mg By Mouth 3 times a day For pain 75 mg 2023 Active 2023 85393 08821 9 3 times a day By Mouth False Senna 8.8 mg/5 mL oral syrup 5ml By Mouth Twice daily as needed For constipation 5ml 2023 Active 2023 72030 55227 8 Twice daily as needed By Mouth False Tramadol 50 mg tablet [generic] 50 mg By Mouth Twice daily For pain 50 mg 2023 Active 2023 45605 37306 0 Twice daily By Mouth False Zyprexa 2.5 mg tablet 2.5 mg By Mouth At bedtime For major depressive disorder 2.5 mg 2023 Active 20232 91460 0 At bedtime By Mouth False Tylenol Extra Strength 500 mg tablet 500 mg By Mouth 3 times a day For pain 500 mg 2023 Active 2023 56979 37581 6 3 times a day By Mouth False Trazodone 50 mg tablet [generic] ONE HALF TAB 25mg By Mouth At bedtime For sleep 25mg 2023 Active 2023 07463 46471 1 At bedtime By Mouth False Klonopin 0.5 mg tablet 0.5mg By Mouth At bedtime For sleep 0.5mg 2023 Active 2023 67122 2 At bedtime By Mouth False Dulcolax (bisacodyl) 10 mg rectal suppository 10 mg Rectal Daily as needed For constipation 10 mg 2023 Active 2023 75657 30044 1 Daily as needed Rectal False Citalopram 20 mg tablet [generic] 20 mg By Mouth Once daily For anxiety 20 mg 2023 Active 2023 05389 44305 1 Once daily By Mouth False Aspercreme (lidocaine HCl) 4 % topical 4 % Topical Three times daily as needed For pain to feet and legs 4 % 2023 Active 2023 80214 48229 0 Three times daily as needed Topica l False Haloperidol lactate 2 mg/mL oral concentrate [generic] 0.5ml By Mouth Every 4 hours as needed For agitation 0.5ml 2023 Active 2023 76826 90375 4 Every 4 hours as needed By Mouth False Haloperidol lactate 2 mg/mL oral concentrate [generic] 0.25ml By Mouth Every 4 days as needed For nausea/vomiti ng 0.25ml 2023 Active 2023 96223 98457 4 Every 4 days as needed By Mouth False Ipratropium 0.5 mg-albutero l 3 mg (2.5 mg base)/3 mL nebulizatio n soln [generic] 3ml Inhalation Every 6 hours as needed via nebulization route For shortness of breath 3ml 2023 Active 2023 55615 42803 3 Every 6 hours as needed Inhala tion False Morphine concentrate 100 mg/5 mL (20 mg/mL) oral solution [generic] 0.25ml (5mg) By Mouth Every 2 hours as needed For shortness of breath or pain 0.25ml (5mg) 2023 Active 2023 24446 04246 1 Every 2 hours as needed By Mouth False Pregabalin 75 mg capsule [generic] 75 mg By Mouth 3 times a day For pain 75 mg 2023 Active 2023 10237 81075 9 3 times a day By Mouth False Senna 8.8 mg/5 mL oral syrup 5ml By Mouth Twice daily as needed For constipation 5ml 2023 Active 2023 83891 82587 8 Twice daily as needed By Mouth False Tramadol 50 mg tablet [generic] 50 mg By Mouth Twice daily For pain 50 mg 2023 Active 2023 34246 09894 0 Twice daily By Mouth False Zyprexa 2.5 mg tablet 2.5 mg By Mouth At bedtime For major depressive disorder 2.5 mg 2023 Active 2023 65492 79374 0 At bedtime By Mouth False Tylenol Extra Strength 500 mg tablet 500 mg By Mouth 3 times a day For pain 500 mg 2023 Active 2023 42820 25539 6 3 times a day By Mouth False Trazodone 50 mg tablet [generic] ONE HALF TAB 25mg By Mouth At bedtime For sleep 25mg 2023 Active 2023 59743 89614 1 At bedtime By Mouth False Klonopin 0.5 mg tablet 0.5mg By Mouth At bedtime For sleep 0.5mg 2023 Active 2023 55248 2 At bedtime By Mouth False Dulcolax (bisacodyl) 10 mg rectal suppository 10 mg Rectal Daily as needed For constipation 10 mg 2023 Active 2023 92096 20830 1 Daily as needed Rectal False Citalopram 20 mg tablet [generic] 20 mg By Mouth Once daily For anxiety 20 mg 2023 Active 2023 98517 94870 1 Once daily By Mouth False Aspercreme (lidocaine HCl) 4 % topical 4 % Topical Three times daily as needed For pain to feet and legs 4 % 2023 Active 2023 48574 89459 0 Three times daily as needed Topica l False Haloperidol lactate 2 mg/mL oral concentrate [generic] 0.5ml By Mouth Every 4 hours as needed For agitation 0.5ml 2023 Active 202321 06648 4 Every 4 hours as needed By Mouth False Haloperidol lactate 2 mg/mL oral concentrate [generic] 0.25ml By Mouth Every 4 days as needed For nausea/vomiti ng 0.25ml 2023 Active 202321 36570 4 Every 4 days as needed By Mouth False Ipratropium 0.5 mg-albutero l 3 mg (2.5 mg base)/3 mL nebulizatio n soln [generic] 3ml Inhalation Every 6 hours as needed via nebulization route For shortness of breath 3ml 2023 Active 2023 30616 69171 3 Every 6 hours as needed Inhala tion False Morphine concentrate 100 mg/5 mL (20 mg/mL) oral solution [generic] 0.25ml (5mg) By Mouth Every 2 hours as needed For shortness of breath or pain 0.25ml (5mg) 2023 Active 2023 60456 87656 1 Every 2 hours as needed By Mouth False Pregabalin 75 mg capsule [generic] 75 mg By Mouth 3 times a day For pain 75 mg 2023 Active 2023 06460 87775 9 3 times a day By Mouth False Senna 8.8 mg/5 mL oral syrup 5ml By Mouth Twice daily as needed For constipation 5ml 2023 Active 2023 10650 78441 8 Twice daily as needed By Mouth False Tramadol 50 mg tablet [generic] 50 mg By Mouth Twice daily For pain 50 mg 2023 Active 2023 15105 00954 0 Twice daily By Mouth False Zyprexa 2.5 mg tablet 2.5 mg By Mouth At bedtime For major depressive disorder 2.5 mg 2023 Active 2023 67152 93937 0 At bedtime By Mouth False Tylenol Extra Strength 500 mg tablet 500 mg By Mouth 3 times a day For pain 500 mg 2023 Active 2023 01149 69663 6 3 times a day By Mouth False Trazodone 50 mg tablet [generic] ONE HALF TAB 25mg By Mouth At bedtime For sleep 25mg 2023 Active 2023 76442 56063 1 At bedtime By Mouth False Klonopin 0.5 mg tablet 0.5mg By Mouth At bedtime For sleep 0.5mg 2023 Active 2023 34822 2 At bedtime By Mouth False VITAL SIGNS Date Time Diastolic blood pressure Systolic blood pressure Body height Body weight Temperature SpO2 Blood Sugar Pulse Respirations 101 03334 8 55.00 mm[Hg] - Lying Down 154.00 mm[Hg] - Lying Down 154.00 NI 98.10 Forehead Scan 94.00 % 76.00/ min 18.00/min 89601 101 59210 2 64 NI Immunizations Vaccine Date Status COVID-19 05/25/2020 Completed COVID-19 06/15/2020 Completed Influenza 05/12/2023 Completed (PCV20)Pneumococcal 05/12/2023 Completed
--- OUTSIDE RECORDS SUMMARY | 2024-04-08 21:56 | External Medical Summary | Continuity Of Care Document ---
Author Name Unknown Address [address] 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 unit/0.1 mL intradermal injection solution [Tuberculin PPD] 0.1mL Intradermal 1 time For PPD 2nd Step Give 2nd Step PPD Day 1 and Read results Day 3 (schedule 7 days after 1st READ) 0.1mL 03/31 Active 2023 20257 79724 0 1 time Intrad ermal False Aspercreme (lidocaine HCl) 4 % topical 4 % Topical Three times daily as needed For pain to feet and legs 4 % 11/08 Inactiv e 2023 06752 69225 0 Three times daily as needed Topica l False Citalopram 20 mg tablet [generic] 20 mg By Mouth Once daily For anxiety 20 mg 11/08 Inactiv e 2023 08698 17766 1 Once daily By Mouth False Dulcolax (bisacodyl) 10 mg rectal suppository 10 mg Rectal Daily as needed For constipation 10 mg 11/12 Inactiv e 2023 85937 94463 1 Daily as needed Rectal False Citalopram 20 mg tablet [generic] 20 mg By Mouth Once daily For anxiety 20 mg 11/12 Inactiv e 2023 48282 31207 1 Once daily By Mouth False Aspercreme (lidocaine HCl) 4 % topical 4 % Topical Three times daily as needed For pain to feet and legs 4 % 11/12 Inactiv e 2023 57648 08179 0 Three times daily as needed Topica l False Haloperidol lactate 2 mg/mL oral concentrate [generic] 0.5ml By Mouth Every 4 hours as needed For agitation 0.5ml 11/12 Inactiv e 2023 51601 02356 4 Every 4 hours as needed By Mouth False Haloperidol lactate 2 mg/mL oral concentrate [generic] 0.25ml By Mouth Every 4 days as needed For nausea/vomiti ng 0.25ml 11/12 Inactiv e 2023 46641 62121 4 Every 4 days as needed By Mouth False Ipratropium 0.5 mg-albutero l 3 mg (2.5 mg base)/3 mL nebulizatio n soln [generic] 3ml Inhalation Every 6 hours as needed via nebulization route For shortness of breath 3ml 11/12 Inactiv e 2023 69152 61746 3 Every 6 hours as needed Inhala tion False Lactulose 10 gram/15 mL (15 mL) oral solution [generic] 10 gram/15 m By Mouth Once daily For constipation 10 gram/15 m 11/12 Inactiv e 2023 88024 43449 0 Once daily By Mouth False Morphine concentrate 100 mg/5 mL (20 mg/mL) oral solution [generic] 0.25ml (5mg) By Mouth Every 2 hours as needed For shortness of breath or pain 0.25ml (5mg) 11/12 Inactiv e 2023 08571 11449 1 Every 2 hours as needed By Mouth False Pantoprazol e 40 mg tablet,fern yed release [generic] 40 mg By Mouth Once daily For GERD 40 mg 11/12 Inactiv e 2023 22134 98814 0 Once daily By Mouth False Pregabalin 25 mg capsule [generic] 25 mg By Mouth 3 times a day For pain 25 mg 11/12 Inactiv e 2023 31295 15802 9 3 times a day By Mouth False Senna 8.8 mg/5 mL oral syrup 5ml By Mouth Twice daily as needed For constipation 5ml 11/09 Inactiv e 2023 72266 15882 8 Twice daily as needed By Mouth False Tramadol 50 mg tablet [generic] 50 mg By Mouth Twice daily For pain 50 mg 11/12 Inactiv e 2023 98538 21338 0 Twice daily By Mouth False Tylenol Arthritis Pain 650 mg tablet,exte nded release 650 mg By Mouth 3 times a day For pain 650 mg 11/08 Inactiv e 2023 00731 39563 1 3 times a day By Mouth False Xanax 0.25 mg tablet 0.25 mg By Mouth Three times daily as needed For anxiety 0.25 mg 11/12 Inactiv e 2023 61551 44712 1 Three times daily as needed By Mouth False Zyprexa 2.5 mg tablet 2.5 mg By Mouth At bedtime For major depressive disorder 2.5 mg 11/12 Inactiv e 2023 82376 00238 0 At bedtime By Mouth False Tylenol 325 mg tablet 650 mg By Mouth 3 times a day For pain 650 mg 11/09 Inactiv e 2023 86205 33592 0 3 times a day By Mouth False Tylenol Extra Strength 500 mg tablet 500 mg By Mouth 3 times a day For pain 500 mg 11/12 Inactiv e 2023 27726 06010 6 3 times a day By Mouth False Senna 8.8 mg/5 mL oral syrup Twice daily administer senna 5mL For constipation 8.8 mg/5 mL 11/12 Inactiv e 2023 42958 44042 8 Twice daily By Mouth False Dulcolax (bisacodyl) 10 mg rectal suppository 10 mg Rectal Daily as needed For constipation 10 mg 2023 Active 2023 07381 45622 1 Daily as needed Rectal False Citalopram 20 mg tablet [generic] 20 mg By Mouth Once daily For anxiety 20 mg 2023 Active 2023 56002 47495 1 Once daily By Mouth False Aspercreme (lidocaine HCl) 4 % topical 4 % Topical Three times daily as needed For pain to feet and legs 4 % 2023 Active 2023 02891 54534 0 Three times daily as needed Topica l False Haloperidol lactate 2 mg/mL oral concentrate [generic] 0.5ml By Mouth Every 4 hours as needed For agitation 0.5ml 2023 Active 2023 91982 56210 4 Every 4 hours as needed By Mouth False Haloperidol lactate 2 mg/mL oral concentrate [generic] 0.25ml By Mouth Every 4 days as needed For nausea/vomiti ng 0.25ml 2023 Active 2023 62333 57805 4 Every 4 days as needed By Mouth False Ipratropium 0.5 mg-albutero l 3 mg (2.5 mg base)/3 mL nebulizatio n soln [generic] 3ml Inhalation Every 6 hours as needed via nebulization route For shortness of breath 3ml 2023 Active 2023 97668 47448 3 Every 6 hours as needed Inhala tion False Lactulose 10 gram/15 mL (15 mL) oral solution [generic] 10 gram/15 m By Mouth Once daily For constipation 10 gram/15 m 2023 Active 2023 01648 45430 0 Once daily By Mouth False Morphine concentrate 100 mg/5 mL (20 mg/mL) oral solution [generic] 0.25ml (5mg) By Mouth Every 2 hours as needed For shortness of breath or pain 0.25ml (5mg) 2023 Active 2023 59716 61039 1 Every 2 hours as needed By Mouth False Pantoprazol e 40 mg tablet,fern yed release [generic] 40 mg By Mouth Once daily For GERD 40 mg 2023 Active 2023 17116 95393 0 Once daily By Mouth False Pregabalin 25 mg capsule [generic] 25 mg By Mouth 3 times a day For pain 25 mg 2023 Active 2023 33454 13204 9 3 times a day By Mouth False Tramadol 50 mg tablet [generic] 50 mg By Mouth Twice daily For pain 50 mg 2023 Active 2023 19545 00140 0 Twice daily By Mouth False Xanax 0.25 mg tablet 0.25 mg By Mouth Three times daily as needed For anxiety 0.25 mg 2023 Active 2023 65200 51662 1 Three times daily as needed By Mouth False Zyprexa 2.5 mg tablet 2.5 mg By Mouth At bedtime For major depressive disorder 2.5 mg 2023 Active 2023 31826 53701 0 At bedtime By Mouth False Tylenol Extra Strength 500 mg tablet 500 mg By Mouth 3 times a day For pain 500 mg 2023 Active 2023 65794 99218 6 3 times a day By Mouth False Senna 8.8 mg/5 mL oral syrup Twice daily administer senna 5mL For constipation 8.8 mg/5 mL 2023 Active 2023 26501 75540 8 Twice daily By Mouth False Dulcolax (bisacodyl) 10 mg rectal suppository 10 mg Rectal Daily as needed For constipation 10 mg 2023 Active 2023 05132 31692 1 Daily as needed Rectal False Citalopram 20 mg tablet [generic] 20 mg By Mouth Once daily For anxiety 20 mg 2023 Active 2023 11791 07795 1 Once daily By Mouth False Aspercreme (lidocaine HCl) 4 % topical 4 % Topical Three times daily as needed For pain to feet and legs 4 % 2023 Active 2023 65211 36270 0 Three times daily as needed Topica l False Haloperidol lactate 2 mg/mL oral concentrate [generic] 0.5ml By Mouth Every 4 hours as needed For agitation 0.5ml 2023 Active 2023 53991 60180 4 Every 4 hours as needed By Mouth False Haloperidol lactate 2 mg/mL oral concentrate [generic] 0.25ml By Mouth Every 4 days as needed For nausea/vomiti ng 0.25ml 2023 Active 202321 09131 4 Every 4 days as needed By Mouth False Ipratropium 0.5 mg-albutero l 3 mg (2.5 mg base)/3 mL nebulizatio n soln [generic] 3ml Inhalation Every 6 hours as needed via nebulization route For shortness of breath 3ml 2023 Active 2023 39832 50490 3 Every 6 hours as needed Inhala tion False Lactulose 10 gram/15 mL (15 mL) oral solution [generic] 10 gram/15 m By Mouth Once daily For constipation 10 gram/15 m 2023 Active 2023 92135 12429 0 Once daily By Mouth False Morphine concentrate 100 mg/5 mL (20 mg/mL) oral solution [generic] 0.25ml (5mg) By Mouth Every 2 hours as needed For shortness of breath or pain 0.25ml (5mg) 2023 Active 2023 69127 38134 1 Every 2 hours as needed By Mouth False Pantoprazol e 40 mg tablet,fern yed release [generic] 40 mg By Mouth Once daily For GERD 40 mg 2023 Active 2023 94894 01231 0 Once daily By Mouth False Pregabalin 25 mg capsule [generic] 25 mg By Mouth 3 times a day For pain 25 mg 2023 Active 2023 22896 95628 9 3 times a day By Mouth False Tramadol 50 mg tablet [generic] 50 mg By Mouth Twice daily For pain 50 mg 2023 Active 2023 79161 74120 0 Twice daily By Mouth False Xanax 0.25 mg tablet 0.25 mg By Mouth Three times daily as needed For anxiety 0.25 mg 2023 Active 2023 29270 96494 1 Three times daily as needed By Mouth False Zyprexa 2.5 mg tablet 2.5 mg By Mouth At bedtime For major depressive disorder 2.5 mg 2023 Active 2023 31284 98231 0 At bedtime By Mouth False Tylenol Extra Strength 500 mg tablet 500 mg By Mouth 3 times a day For pain 500 mg 2023 Active 2023 96600 00942 6 3 times a day By Mouth False Senna 8.8 mg/5 mL oral syrup Twice daily administer senna 5mL For constipation 8.8 mg/5 mL 2023 Active 2023 76048 40160 8 Twice daily By Mouth False Dulcolax (bisacodyl) 10 mg rectal suppository 10 mg Rectal Daily as needed For constipation 10 mg 2023 Active 2023 17317 23633 1 Daily as needed Rectal False Citalopram 20 mg tablet [generic] 20 mg By Mouth Once daily For anxiety 20 mg 2023 Active 2023 39584 33080 1 Once daily By Mouth False Aspercreme (lidocaine HCl) 4 % topical 4 % Topical Three times daily as needed For pain to feet and legs 4 % 2023 Active 2023 12384 88409 0 Three times daily as needed Topica l False Haloperidol lactate 2 mg/mL oral concentrate [generic] 0.5ml By Mouth Every 4 hours as needed For agitation 0.5ml 2023 Active 2023 32214 43431 4 Every 4 hours as needed By Mouth False Haloperidol lactate 2 mg/mL oral concentrate [generic] 0.25ml By Mouth Every 4 days as needed For nausea/vomiti ng 0.25ml 2023 Active 2023 43227 91016 4 Every 4 days as needed By Mouth False Ipratropium 0.5 mg-albutero l 3 mg (2.5 mg base)/3 mL nebulizatio n soln [generic] 3ml Inhalation Every 6 hours as needed via nebulization route For shortness of breath 3ml 2023 Active 2023 50024 77792 3 Every 6 hours as needed Inhala tion False Morphine concentrate 100 mg/5 mL (20 mg/mL) oral solution [generic] 0.25ml (5mg) By Mouth Every 2 hours as needed For shortness of breath or pain 0.25ml (5mg) 2023 Active 2023 19152 92037 1 Every 2 hours as needed By Mouth False Pregabalin 75 mg capsule [generic] 75 mg By Mouth 3 times a day For pain 75 mg 2023 Active 2023 10394 06843 9 3 times a day By Mouth False Senna 8.8 mg/5 mL oral syrup 5ml By Mouth Twice daily as needed For constipation 5ml 2023 Active 2023 53745 58230 8 Twice daily as needed By Mouth False Tramadol 50 mg tablet [generic] 50 mg By Mouth Twice daily For pain 50 mg 2023 Active 2023 36624 51238 0 Twice daily By Mouth False Zyprexa 2.5 mg tablet 2.5 mg By Mouth At bedtime For major depressive disorder 2.5 mg 2023 Active 2023 34527 54046 0 At bedtime By Mouth False Tylenol Extra Strength 500 mg tablet 500 mg By Mouth 3 times a day For pain 500 mg 2023 Active 2023 21708 05591 6 3 times a day By Mouth False Trazodone 50 mg tablet [generic] ONE HALF TAB 25mg By Mouth At bedtime For sleep 25mg 2023 Active 2023 49352 93063 1 At bedtime By Mouth False Klonopin 0.5 mg tablet 0.5mg By Mouth At bedtime For sleep 0.5mg 2023 Active 2023 51762 30095 2 At bedtime By Mouth False VITAL SIGNS Date Time Diastolic blood pressure Systolic blood pressure Body height Body weight Temperature SpO2 Blood Sugar Pulse Respirations 101 10341 8 55.00 mm[Hg] - Lying Down 154.00 mm[Hg] - Lying Down 154.00 NI 98.10 Forehead Scan 94.00 % 76.00/ min 18.00/min 101 37644 2 64 NI Immunizations Vaccine Date Status COVID-19 05/25/2020 Completed COVID-19 06/15/2020 Completed Influenza 05/12/2023 Completed (PCV20)Pneumococcal 05/12/2023 Completed
--- OUTSIDE RECORDS SUMMARY | 2024-04-08 21:56 | External Medical Summary | Continuity Of Care Document ---
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 unit/0.1 mL intradermal injection solution [Tuberculin PPD] 0.1mL Intradermal 1 time For PPD 2nd Step Give 2nd Step PPD Day 1 and Read results Day 3 (schedule 7 days after 1st READ) 0.1mL 03/31 Active 2023 32011 38119 0 1 time Intrad ermal False Aspercreme (lidocaine HCl) 4 % topical 4 % Topical Three times daily as needed For pain to feet and legs 4 % 11/08 Inactiv e 2023 76947 82501 0 Three times daily as needed Topica l False Citalopram 20 mg tablet [generic] 20 mg By Mouth Once daily For anxiety 20 mg 11/08 Inactiv e 2023 81523 39155 1 Once daily By Mouth False Dulcolax (bisacodyl) 10 mg rectal suppository 10 mg Rectal Daily as needed For constipation 10 mg 11/12 Inactiv e 2023 71894 87738 1 Daily as needed Rectal False Citalopram 20 mg tablet [generic] 20 mg By Mouth Once daily For anxiety 20 mg 11/12 Inactiv e 2023 91083 70306 1 Once daily By Mouth False Aspercreme (lidocaine HCl) 4 % topical 4 % Topical Three times daily as needed For pain to feet and legs 4 % 11/12 Inactiv e 2023 51022 60789 0 Three times daily as needed Topica l False Haloperidol lactate 2 mg/mL oral concentrate [generic] 0.5ml By Mouth Every 4 hours as needed For agitation 0.5ml 11/12 Inactiv e 2023 86147 52980 4 Every 4 hours as needed By Mouth False Haloperidol lactate 2 mg/mL oral concentrate [generic] 0.25ml By Mouth Every 4 days as needed For nausea/vomiti ng 0.25ml 11/12 Inactiv e 2023 72588 86465 4 Every 4 days as needed By Mouth False Ipratropium 0.5 mg-albutero l 3 mg (2.5 mg base)/3 mL nebulizatio n soln [generic] 3ml Inhalation Every 6 hours as needed via nebulization route For shortness of breath 3ml 11/12 Inactiv e 2023 53589 48442 3 Every 6 hours as needed Inhala tion False Lactulose 10 gram/15 mL (15 mL) oral solution [generic] 10 gram/15 m By Mouth Once daily For constipation 10 gram/15 m 11/12 Inactiv e 2023 25486 48866 0 Once daily By Mouth False Morphine concentrate 100 mg/5 mL (20 mg/mL) oral solution [generic] 0.25ml (5mg) By Mouth Every 2 hours as needed For shortness of breath or pain 0.25ml (5mg) 11/12 Inactiv e 2023 27994 57153 1 Every 2 hours as needed By Mouth False Pantoprazol e 40 mg tablet,fern yed release [generic] 40 mg By Mouth Once daily For GERD 40 mg 11/12 Inactiv e 2023 93640 41850 0 Once daily By Mouth False Pregabalin 25 mg capsule [generic] 25 mg By Mouth 3 times a day For pain 25 mg 11/12 Inactiv e 2023 92179 22620 9 3 times a day By Mouth False Senna 8.8 mg/5 mL oral syrup 5ml By Mouth Twice daily as needed For constipation 5ml 11/09 Inactiv e 2023 89171 99861 8 Twice daily as needed By Mouth False Tramadol 50 mg tablet [generic] 50 mg By Mouth Twice daily For pain 50 mg 11/12 Inactiv e 2023 78746 08825 0 Twice daily By Mouth False Tylenol Arthritis Pain 650 mg tablet,exte nded release 650 mg By Mouth 3 times a day For pain 650 mg 11/08 Inactiv e 2023 48011 03019 1 3 times a day By Mouth False Xanax 0.25 mg tablet 0.25 mg By Mouth Three times daily as needed For anxiety 0.25 mg 11/12 Inactiv e 2023 53907 28758 1 Three times daily as needed By Mouth False Zyprexa 2.5 mg tablet 2.5 mg By Mouth At bedtime For major depressive disorder 2.5 mg 11/12 Inactiv e 2023 80818 97914 0 At bedtime By Mouth False Tylenol 325 mg tablet 650 mg By Mouth 3 times a day For pain 650 mg 11/09 Inactiv e 2023 86531 25951 0 3 times a day By Mouth False Tylenol Extra Strength 500 mg tablet 500 mg By Mouth 3 times a day For pain 500 mg 11/12 Inactiv e 2023 27666 88480 6 3 times a day By Mouth False Senna 8.8 mg/5 mL oral syrup Twice daily administer senna 5mL For constipation 8.8 mg/5 mL 11/12 Inactiv e 2023 08511 54661 8 Twice daily By Mouth False Dulcolax (bisacodyl) 10 mg rectal suppository 10 mg Rectal Daily as needed For constipation 10 mg 2023 Active 2023 26968 07306 1 Daily as needed Rectal False Citalopram 20 mg tablet [generic] 20 mg By Mouth Once daily For anxiety 20 mg 2023 Active 2023 53025 79511 1 Once daily By Mouth False Aspercreme (lidocaine HCl) 4 % topical 4 % Topical Three times daily as needed For pain to feet and legs 4 % 2023 Active 2023 65626 56081 0 Three times daily as needed Topica l False Haloperidol lactate 2 mg/mL oral concentrate [generic] 0.5ml By Mouth Every 4 hours as needed For agitation 0.5ml 2023 Active 2023 98953 57475 4 Every 4 hours as needed By Mouth False Haloperidol lactate 2 mg/mL oral concentrate [generic] 0.25ml By Mouth Every 4 days as needed For nausea/vomiti ng 0.25ml 2023 Active 2023 00178 58275 4 Every 4 days as needed By Mouth False Ipratropium 0.5 mg-albutero l 3 mg (2.5 mg base)/3 mL nebulizatio n soln [generic] 3ml Inhalation Every 6 hours as needed via nebulization route For shortness of breath 3ml 2023 Active 2023 11359 08564 3 Every 6 hours as needed Inhala tion False Lactulose 10 gram/15 mL (15 mL) oral solution [generic] 10 gram/15 m By Mouth Once daily For constipation 10 gram/15 m 2023 Active 2023 58350 58547 0 Once daily By Mouth False Morphine concentrate 100 mg/5 mL (20 mg/mL) oral solution [generic] 0.25ml (5mg) By Mouth Every 2 hours as needed For shortness of breath or pain 0.25ml (5mg) 2023 Active 2023 14381 36705 1 Every 2 hours as needed By Mouth False Pantoprazol e 40 mg tablet,fern yed release [generic] 40 mg By Mouth Once daily For GERD 40 mg 2023 Active 2023 51907 78015 0 Once daily By Mouth False Pregabalin 25 mg capsule [generic] 25 mg By Mouth 3 times a day For pain 25 mg 2023 Active 2023 34945 42260 9 3 times a day By Mouth False Tramadol 50 mg tablet [generic] 50 mg By Mouth Twice daily For pain 50 mg 2023 Active 2023 44993 75963 0 Twice daily By Mouth False Xanax 0.25 mg tablet 0.25 mg By Mouth Three times daily as needed For anxiety 0.25 mg 2023 Active 2023 95363 53372 1 Three times daily as needed By Mouth False Zyprexa 2.5 mg tablet 2.5 mg By Mouth At bedtime For major depressive disorder 2.5 mg 2023 Active 2023 08914 63433 0 At bedtime By Mouth False Tylenol Extra Strength 500 mg tablet 500 mg By Mouth 3 times a day For pain 500 mg 2023 Active 2023 32285 00522 6 3 times a day By Mouth False Senna 8.8 mg/5 mL oral syrup Twice daily administer senna 5mL For constipation 8.8 mg/5 mL 2023 Active 2023 34371 54256 8 Twice daily By Mouth False Dulcolax (bisacodyl) 10 mg rectal suppository 10 mg Rectal Daily as needed For constipation 10 mg 2023 Active 2023 31893 73717 1 Daily as needed Rectal False Citalopram 20 mg tablet [generic] 20 mg By Mouth Once daily For anxiety 20 mg 2023 Active 2023 75250 21877 1 Once daily By Mouth False Aspercreme (lidocaine HCl) 4 % topical 4 % Topical Three times daily as needed For pain to feet and legs 4 % 2023 Active 2023 45717 55526 0 Three times daily as needed Topica l False Haloperidol lactate 2 mg/mL oral concentrate [generic] 0.5ml By Mouth Every 4 hours as needed For agitation 0.5ml 2023 Active 2023 88109 05847 4 Every 4 hours as needed By Mouth False Haloperidol lactate 2 mg/mL oral concentrate [generic] 0.25ml By Mouth Every 4 days as needed For nausea/vomiti ng 0.25ml 2023 Active 202321 57028 4 Every 4 days as needed By Mouth False Ipratropium 0.5 mg-albutero l 3 mg (2.5 mg base)/3 mL nebulizatio n soln [generic] 3ml Inhalation Every 6 hours as needed via nebulization route For shortness of breath 3ml 2023 Active 2023 29918 87672 3 Every 6 hours as needed Inhala tion False Lactulose 10 gram/15 mL (15 mL) oral solution [generic] 10 gram/15 m By Mouth Once daily For constipation 10 gram/15 m 2023 Active 2023 39026 83185 0 Once daily By Mouth False Morphine concentrate 100 mg/5 mL (20 mg/mL) oral solution [generic] 0.25ml (5mg) By Mouth Every 2 hours as needed For shortness of breath or pain 0.25ml (5mg) 2023 Active 2023 54549 46305 1 Every 2 hours as needed By Mouth False Pantoprazol e 40 mg tablet,fern yed release [generic] 40 mg By Mouth Once daily For GERD 40 mg 2023 Active 2023 24443 23772 0 Once daily By Mouth False Pregabalin 25 mg capsule [generic] 25 mg By Mouth 3 times a day For pain 25 mg 2023 Active 2023 17101 27297 9 3 times a day By Mouth False Tramadol 50 mg tablet [generic] 50 mg By Mouth Twice daily For pain 50 mg 2023 Active 2023 85445 28106 0 Twice daily By Mouth False Xanax 0.25 mg tablet 0.25 mg By Mouth Three times daily as needed For anxiety 0.25 mg 2023 Active 2023 27013 66156 1 Three times daily as needed By Mouth False Zyprexa 2.5 mg tablet 2.5 mg By Mouth At bedtime For major depressive disorder 2.5 mg 2023 Active 2023 41000 36223 0 At bedtime By Mouth False Tylenol Extra Strength 500 mg tablet 500 mg By Mouth 3 times a day For pain 500 mg 2023 Active 2023 66053 54473 6 3 times a day By Mouth False Senna 8.8 mg/5 mL oral syrup Twice daily administer senna 5mL For constipation 8.8 mg/5 mL 2023 Active 2023 22141 26985 8 Twice daily By Mouth False Dulcolax (bisacodyl) 10 mg rectal suppository 10 mg Rectal Daily as needed For constipation 10 mg 2023 Active 2023 34208 85426 1 Daily as needed Rectal False Citalopram 20 mg tablet [generic] 20 mg By Mouth Once daily For anxiety 20 mg 2023 Active 2023 46226 58184 1 Once daily By Mouth False Aspercreme (lidocaine HCl) 4 % topical 4 % Topical Three times daily as needed For pain to feet and legs 4 % 2023 Active 2023 31767 69426 0 Three times daily as needed Topica l False Haloperidol lactate 2 mg/mL oral concentrate [generic] 0.5ml By Mouth Every 4 hours as needed For agitation 0.5ml 2023 Active 2023 90228 18540 4 Every 4 hours as needed By Mouth False Haloperidol lactate 2 mg/mL oral concentrate [generic] 0.25ml By Mouth Every 4 days as needed For nausea/vomiti ng 0.25ml 2023 Active 2023 51408 09289 4 Every 4 days as needed By Mouth False Ipratropium 0.5 mg-albutero l 3 mg (2.5 mg base)/3 mL nebulizatio n soln [generic] 3ml Inhalation Every 6 hours as needed via nebulization route For shortness of breath 3ml 2023 Active 2023 03926 78224 3 Every 6 hours as needed Inhala tion False Morphine concentrate 100 mg/5 mL (20 mg/mL) oral solution [generic] 0.25ml (5mg) By Mouth Every 2 hours as needed For shortness of breath or pain 0.25ml (5mg) 2023 Active 2023 34990 25219 1 Every 2 hours as needed By Mouth False Pregabalin 75 mg capsule [generic] 75 mg By Mouth 3 times a day For pain 75 mg 2023 Active 2023 41512 95804 9 3 times a day By Mouth False Senna 8.8 mg/5 mL oral syrup 5ml By Mouth Twice daily as needed For constipation 5ml 2023 Active 2023 94725 40878 8 Twice daily as needed By Mouth False Tramadol 50 mg tablet [generic] 50 mg By Mouth Twice daily For pain 50 mg 2023 Active 2023 28761 21384 0 Twice daily By Mouth False Zyprexa 2.5 mg tablet 2.5 mg By Mouth At bedtime For major depressive disorder 2.5 mg 2023 Active 2023 50588 98135 0 At bedtime By Mouth False Tylenol Extra Strength 500 mg tablet 500 mg By Mouth 3 times a day For pain 500 mg 2023 Active 2023 07819 29973 6 3 times a day By Mouth False Trazodone 50 mg tablet [generic] ONE HALF TAB 25mg By Mouth At bedtime For sleep 25mg 2023 Active 2023 39625 04477 1 At bedtime By Mouth False Klonopin 0.5 mg tablet 0.5mg By Mouth At bedtime For sleep 0.5mg 2023 Active 2023 57175 60753 2 At bedtime By Mouth False VITAL SIGNS Date Time Diastolic blood pressure Systolic blood pressure Body height Body weight Temperature SpO2 Blood Sugar Pulse Respirations 101 00917 8 55.00 mm[Hg] - Lying Down 154.00 mm[Hg] - Lying Down 154.00 NI 98.10 Forehead Scan 94.00 % 76.00/ min 18.00/min 101 52884 2 64 NI Immunizations Vaccine Date Status COVID-19 05/25/2020 Completed COVID-19 06/15/2020 Completed Influenza 05/12/2023 Completed (PCV20)Pneumococcal 05/12/2023 Completed
--- OUTSIDE RECORDS SUMMARY | 2024-04-08 21:56 | External Medical Summary | Continuity Of Care Document ---
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 unit/0.1 mL intradermal injection solution [Tuberculin PPD] 0.1mL Intradermal 1 time For PPD 2nd Step Give 2nd Step PPD Day 1 and Read results Day 3 (schedule 7 days after 1st READ) 0.1mL 03/31 Active 2023 17929 08475 0 1 time Intrad ermal False Aspercreme (lidocaine HCl) 4 % topical 4 % Topical Three times daily as needed For pain to feet and legs 4 % 11/08 Inactiv e 2023 53144 73824 0 Three times daily as needed Topica l False Citalopram 20 mg tablet [generic] 20 mg By Mouth Once daily For anxiety 20 mg 11/08 Inactiv e 2023 27579 68081 1 Once daily By Mouth False Dulcolax (bisacodyl) 10 mg rectal suppository 10 mg Rectal Daily as needed For constipation 10 mg 11/12 Inactiv e 2023 18324 93145 1 Daily as needed Rectal False Citalopram 20 mg tablet [generic] 20 mg By Mouth Once daily For anxiety 20 mg 11/12 Inactiv e 2023 23977 03573 1 Once daily By Mouth False Aspercreme (lidocaine HCl) 4 % topical 4 % Topical Three times daily as needed For pain to feet and legs 4 % 11/12 Inactiv e 2023 43700 40154 0 Three times daily as needed Topica l False Haloperidol lactate 2 mg/mL oral concentrate [generic] 0.5ml By Mouth Every 4 hours as needed For agitation 0.5ml 11/12 Inactiv e 2023 98236 56895 4 Every 4 hours as needed By Mouth False Haloperidol lactate 2 mg/mL oral concentrate [generic] 0.25ml By Mouth Every 4 days as needed For nausea/vomiti ng 0.25ml 11/12 Inactiv e 2023 11494 06569 4 Every 4 days as needed By Mouth False Ipratropium 0.5 mg-albutero l 3 mg (2.5 mg base)/3 mL nebulizatio n soln [generic] 3ml Inhalation Every 6 hours as needed via nebulization route For shortness of breath 3ml 11/12 Inactiv e 2023 41434 75862 3 Every 6 hours as needed Inhala tion False Lactulose 10 gram/15 mL (15 mL) oral solution [generic] 10 gram/15 m By Mouth Once daily For constipation 10 gram/15 m 11/12 Inactiv e 2023 52020 12439 0 Once daily By Mouth False Morphine concentrate 100 mg/5 mL (20 mg/mL) oral solution [generic] 0.25ml (5mg) By Mouth Every 2 hours as needed For shortness of breath or pain 0.25ml (5mg) 11/12 Inactiv e 2023 66253 86131 1 Every 2 hours as needed By Mouth False Pantoprazol e 40 mg tablet,fern yed release [generic] 40 mg By Mouth Once daily For GERD 40 mg 11/12 Inactiv e 2023 09886 25517 0 Once daily By Mouth False Pregabalin 25 mg capsule [generic] 25 mg By Mouth 3 times a day For pain 25 mg 11/12 Inactiv e 2023 68020 55759 9 3 times a day By Mouth False Senna 8.8 mg/5 mL oral syrup 5ml By Mouth Twice daily as needed For constipation 5ml 11/09 Inactiv e 2023 83183 62012 8 Twice daily as needed By Mouth False Tramadol 50 mg tablet [generic] 50 mg By Mouth Twice daily For pain 50 mg 11/12 Inactiv e 2023 35840 17929 0 Twice daily By Mouth False Tylenol Arthritis Pain 650 mg tablet,exte nded release 650 mg By Mouth 3 times a day For pain 650 mg 11/08 Inactiv e 2023 47401 37609 1 3 times a day By Mouth False Xanax 0.25 mg tablet 0.25 mg By Mouth Three times daily as needed For anxiety 0.25 mg 11/12 Inactiv e 2023 97736 23745 1 Three times daily as needed By Mouth False Zyprexa 2.5 mg tablet 2.5 mg By Mouth At bedtime For major depressive disorder 2.5 mg 11/12 Inactiv e 2023 66054 96500 0 At bedtime By Mouth False Tylenol 325 mg tablet 650 mg By Mouth 3 times a day For pain 650 mg 11/09 Inactiv e 2023 75534 16671 0 3 times a day By Mouth False Tylenol Extra Strength 500 mg tablet 500 mg By Mouth 3 times a day For pain 500 mg 11/12 Inactiv e 2023 35992 59264 6 3 times a day By Mouth False Senna 8.8 mg/5 mL oral syrup Twice daily administer senna 5mL For constipation 8.8 mg/5 mL 11/12 Inactiv e 2023 69499 38257 8 Twice daily By Mouth False Dulcolax (bisacodyl) 10 mg rectal suppository 10 mg Rectal Daily as needed For constipation 10 mg 2023 Active 2023 29022 66423 1 Daily as needed Rectal False Citalopram 20 mg tablet [generic] 20 mg By Mouth Once daily For anxiety 20 mg 2023 Active 2023 08338 10753 1 Once daily By Mouth False Aspercreme (lidocaine HCl) 4 % topical 4 % Topical Three times daily as needed For pain to feet and legs 4 % 2023 Active 2023 40416 13550 0 Three times daily as needed Topica l False Haloperidol lactate 2 mg/mL oral concentrate [generic] 0.5ml By Mouth Every 4 hours as needed For agitation 0.5ml 2023 Active 2023 19024 46145 4 Every 4 hours as needed By Mouth False Haloperidol lactate 2 mg/mL oral concentrate [generic] 0.25ml By Mouth Every 4 days as needed For nausea/vomiti ng 0.25ml 2023 Active 2023 26760 04102 4 Every 4 days as needed By Mouth False Ipratropium 0.5 mg-albutero l 3 mg (2.5 mg base)/3 mL nebulizatio n soln [generic] 3ml Inhalation Every 6 hours as needed via nebulization route For shortness of breath 3ml 2023 Active 2023 81084 63078 3 Every 6 hours as needed Inhala tion False Lactulose 10 gram/15 mL (15 mL) oral solution [generic] 10 gram/15 m By Mouth Once daily For constipation 10 gram/15 m 2023 Active 2023 63905 57714 0 Once daily By Mouth False Morphine concentrate 100 mg/5 mL (20 mg/mL) oral solution [generic] 0.25ml (5mg) By Mouth Every 2 hours as needed For shortness of breath or pain 0.25ml (5mg) 2023 Active 2023 51951 03660 1 Every 2 hours as needed By Mouth False Pantoprazol e 40 mg tablet,fern yed release [generic] 40 mg By Mouth Once daily For GERD 40 mg 2023 Active 2023 66195 38398 0 Once daily By Mouth False Pregabalin 25 mg capsule [generic] 25 mg By Mouth 3 times a day For pain 25 mg 2023 Active 2023 61741 45078 9 3 times a day By Mouth False Tramadol 50 mg tablet [generic] 50 mg By Mouth Twice daily For pain 50 mg 2023 Active 2023 22424 03029 0 Twice daily By Mouth False Xanax 0.25 mg tablet 0.25 mg By Mouth Three times daily as needed For anxiety 0.25 mg 2023 Active 2023 35329 98347 1 Three times daily as needed By Mouth False Zyprexa 2.5 mg tablet 2.5 mg By Mouth At bedtime For major depressive disorder 2.5 mg 2023 Active 2023 28467 22678 0 At bedtime By Mouth False Tylenol Extra Strength 500 mg tablet 500 mg By Mouth 3 times a day For pain 500 mg 2023 Active 2023 61937 24316 6 3 times a day By Mouth False Senna 8.8 mg/5 mL oral syrup Twice daily administer senna 5mL For constipation 8.8 mg/5 mL 2023 Active 2023 90049 84937 8 Twice daily By Mouth False Dulcolax (bisacodyl) 10 mg rectal suppository 10 mg Rectal Daily as needed For constipation 10 mg 2023 Active 2023 42383 64016 1 Daily as needed Rectal False Citalopram 20 mg tablet [generic] 20 mg By Mouth Once daily For anxiety 20 mg 2023 Active 2023 05473 36706 1 Once daily By Mouth False Aspercreme (lidocaine HCl) 4 % topical 4 % Topical Three times daily as needed For pain to feet and legs 4 % 2023 Active 2023 05796 46055 0 Three times daily as needed Topica l False Haloperidol lactate 2 mg/mL oral concentrate [generic] 0.5ml By Mouth Every 4 hours as needed For agitation 0.5ml 2023 Active 2023 66769 12305 4 Every 4 hours as needed By Mouth False Haloperidol lactate 2 mg/mL oral concentrate [generic] 0.25ml By Mouth Every 4 days as needed For nausea/vomiti ng 0.25ml 2023 Active 202321 32193 4 Every 4 days as needed By Mouth False Ipratropium 0.5 mg-albutero l 3 mg (2.5 mg base)/3 mL nebulizatio n soln [generic] 3ml Inhalation Every 6 hours as needed via nebulization route For shortness of breath 3ml 2023 Active 2023 93985 81191 3 Every 6 hours as needed Inhala tion False Lactulose 10 gram/15 mL (15 mL) oral solution [generic] 10 gram/15 m By Mouth Once daily For constipation 10 gram/15 m 2023 Active 2023 71793 07728 0 Once daily By Mouth False Morphine concentrate 100 mg/5 mL (20 mg/mL) oral solution [generic] 0.25ml (5mg) By Mouth Every 2 hours as needed For shortness of breath or pain 0.25ml (5mg) 2023 Active 2023 07239 88543 1 Every 2 hours as needed By Mouth False Pantoprazol e 40 mg tablet,fern yed release [generic] 40 mg By Mouth Once daily For GERD 40 mg 2023 Active 2023 13385 93664 0 Once daily By Mouth False Pregabalin 25 mg capsule [generic] 25 mg By Mouth 3 times a day For pain 25 mg 2023 Active 2023 01875 13420 9 3 times a day By Mouth False Tramadol 50 mg tablet [generic] 50 mg By Mouth Twice daily For pain 50 mg 2023 Active 2023 84778 07991 0 Twice daily By Mouth False Xanax 0.25 mg tablet 0.25 mg By Mouth Three times daily as needed For anxiety 0.25 mg 2023 Active 2023 33682 11381 1 Three times daily as needed By Mouth False Zyprexa 2.5 mg tablet 2.5 mg By Mouth At bedtime For major depressive disorder 2.5 mg 2023 Active 2023 35410 47307 0 At bedtime By Mouth False Tylenol Extra Strength 500 mg tablet 500 mg By Mouth 3 times a day For pain 500 mg 2023 Active 2023 45640 84496 6 3 times a day By Mouth False Senna 8.8 mg/5 mL oral syrup Twice daily administer senna 5mL For constipation 8.8 mg/5 mL 2023 Active 2023 73443 13247 8 Twice daily By Mouth False Dulcolax (bisacodyl) 10 mg rectal suppository 10 mg Rectal Daily as needed For constipation 10 mg 2023 Active 2023 31055 75217 1 Daily as needed Rectal False Citalopram 20 mg tablet [generic] 20 mg By Mouth Once daily For anxiety 20 mg 2023 Active 2023 55295 66171 1 Once daily By Mouth False Aspercreme (lidocaine HCl) 4 % topical 4 % Topical Three times daily as needed For pain to feet and legs 4 % 2023 Active 2023 62534 62215 0 Three times daily as needed Topica l False Haloperidol lactate 2 mg/mL oral concentrate [generic] 0.5ml By Mouth Every 4 hours as needed For agitation 0.5ml 2023 Active 2023 08423 41001 4 Every 4 hours as needed By Mouth False Haloperidol lactate 2 mg/mL oral concentrate [generic] 0.25ml By Mouth Every 4 days as needed For nausea/vomiti ng 0.25ml 2023 Active 2023 16471 25387 4 Every 4 days as needed By Mouth False Ipratropium 0.5 mg-albutero l 3 mg (2.5 mg base)/3 mL nebulizatio n soln [generic] 3ml Inhalation Every 6 hours as needed via nebulization route For shortness of breath 3ml 2023 Active 2023 36629 14218 3 Every 6 hours as needed Inhala tion False Morphine concentrate 100 mg/5 mL (20 mg/mL) oral solution [generic] 0.25ml (5mg) By Mouth Every 2 hours as needed For shortness of breath or pain 0.25ml (5mg) 2023 Active 2023 12920 57103 1 Every 2 hours as needed By Mouth False Pregabalin 75 mg capsule [generic] 75 mg By Mouth 3 times a day For pain 75 mg 2023 Active 2023 74750 05229 9 3 times a day By Mouth False Senna 8.8 mg/5 mL oral syrup 5ml By Mouth Twice daily as needed For constipation 5ml 2023 Active 2023 42029 15100 8 Twice daily as needed By Mouth False Tramadol 50 mg tablet [generic] 50 mg By Mouth Twice daily For pain 50 mg 2023 Active 2023 03718 59280 0 Twice daily By Mouth False Zyprexa 2.5 mg tablet 2.5 mg By Mouth At bedtime For major depressive disorder 2.5 mg 2023 Active 2023 34761 79896 0 At bedtime By Mouth False Tylenol Extra Strength 500 mg tablet 500 mg By Mouth 3 times a day For pain 500 mg 2023 Active 2023 42772 47739 6 3 times a day By Mouth False Trazodone 50 mg tablet [generic] ONE HALF TAB 25mg By Mouth At bedtime For sleep 25mg 2023 Active 2023 02787 88632 1 At bedtime By Mouth False Klonopin 0.5 mg tablet 0.5mg By Mouth At bedtime For sleep 0.5mg 2023 Active 2023 75003 99363 2 At bedtime By Mouth False VITAL SIGNS Date Time Diastolic blood pressure Systolic blood pressure Body height Body weight Temperature SpO2 Blood Sugar Pulse Respirations 101 53714 8 55.00 mm[Hg] - Lying Down 154.00 mm[Hg] - Lying Down 154.00 NI 98.10 Forehead Scan 94.00 % 76.00/ min 18.00/min 101 65769 2 64 NI Immunizations Vaccine Date Status COVID-19 05/25/2020 Completed COVID-19 06/15/2020 Completed Influenza 05/12/2023 Completed (PCV20)Pneumococcal 05/12/2023 Completed
--- OUTSIDE RECORDS SUMMARY | 2024-04-08 21:56 | External Medical Summary | Continuity Of Care Document ---
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 unit/0.1 mL intradermal injection solution [Tuberculin PPD] 0.1mL Intradermal 1 time For PPD 2nd Step Give 2nd Step PPD Day 1 and Read results Day 3 (schedule 7 days after 1st READ) 0.1mL 03/31 Active 2023 79256 06467 0 1 time Intrad ermal False Aspercreme (lidocaine HCl) 4 % topical 4 % Topical Three times daily as needed For pain to feet and legs 4 % 11/08 Inactiv e 2023 15941 65549 0 Three times daily as needed Topica l False Citalopram 20 mg tablet [generic] 20 mg By Mouth Once daily For anxiety 20 mg 11/08 Inactiv e 2023 15385 25232 1 Once daily By Mouth False Dulcolax (bisacodyl) 10 mg rectal suppository 10 mg Rectal Daily as needed For constipation 10 mg 11/12 Inactiv e 2023 79634 78002 1 Daily as needed Rectal False Citalopram 20 mg tablet [generic] 20 mg By Mouth Once daily For anxiety 20 mg 11/12 Inactiv e 2023 88900 86890 1 Once daily By Mouth False Aspercreme (lidocaine HCl) 4 % topical 4 % Topical Three times daily as needed For pain to feet and legs 4 % 11/12 Inactiv e 2023 96511 61825 0 Three times daily as needed Topica l False Haloperidol lactate 2 mg/mL oral concentrate [generic] 0.5ml By Mouth Every 4 hours as needed For agitation 0.5ml 11/12 Inactiv e 2023 35197 94827 4 Every 4 hours as needed By Mouth False Haloperidol lactate 2 mg/mL oral concentrate [generic] 0.25ml By Mouth Every 4 days as needed For nausea/vomiti ng 0.25ml 11/12 Inactiv e 2023 11485 51666 4 Every 4 days as needed By Mouth False Ipratropium 0.5 mg-albutero l 3 mg (2.5 mg base)/3 mL nebulizatio n soln [generic] 3ml Inhalation Every 6 hours as needed via nebulization route For shortness of breath 3ml 11/12 Inactiv e 2023 88794 77309 3 Every 6 hours as needed Inhala tion False Lactulose 10 gram/15 mL (15 mL) oral solution [generic] 10 gram/15 m By Mouth Once daily For constipation 10 gram/15 m 11/12 Inactiv e 2023 84679 81066 0 Once daily By Mouth False Morphine concentrate 100 mg/5 mL (20 mg/mL) oral solution [generic] 0.25ml (5mg) By Mouth Every 2 hours as needed For shortness of breath or pain 0.25ml (5mg) 11/12 Inactiv e 2023 55572 01782 1 Every 2 hours as needed By Mouth False Pantoprazol e 40 mg tablet,fern yed release [generic] 40 mg By Mouth Once daily For GERD 40 mg 11/12 Inactiv e 2023 35696 62552 0 Once daily By Mouth False Pregabalin 25 mg capsule [generic] 25 mg By Mouth 3 times a day For pain 25 mg 11/12 Inactiv e 2023 02753 98192 9 3 times a day By Mouth False Senna 8.8 mg/5 mL oral syrup 5ml By Mouth Twice daily as needed For constipation 5ml 11/09 Inactiv e 2023 45850 32476 8 Twice daily as needed By Mouth False Tramadol 50 mg tablet [generic] 50 mg By Mouth Twice daily For pain 50 mg 11/12 Inactiv e 2023 67133 91389 0 Twice daily By Mouth False Tylenol Arthritis Pain 650 mg tablet,exte nded release 650 mg By Mouth 3 times a day For pain 650 mg 11/08 Inactiv e 2023 63953 32342 1 3 times a day By Mouth False Xanax 0.25 mg tablet 0.25 mg By Mouth Three times daily as needed For anxiety 0.25 mg 11/12 Inactiv e 2023 73544 51388 1 Three times daily as needed By Mouth False Zyprexa 2.5 mg tablet 2.5 mg By Mouth At bedtime For major depressive disorder 2.5 mg 11/12 Inactiv e 2023 87705 99034 0 At bedtime By Mouth False Tylenol 325 mg tablet 650 mg By Mouth 3 times a day For pain 650 mg 11/09 Inactiv e 2023 59512 49054 0 3 times a day By Mouth False Tylenol Extra Strength 500 mg tablet 500 mg By Mouth 3 times a day For pain 500 mg 11/12 Inactiv e 2023 87140 01842 6 3 times a day By Mouth False Senna 8.8 mg/5 mL oral syrup Twice daily administer senna 5mL For constipation 8.8 mg/5 mL 11/12 Inactiv e 2023 90200 21496 8 Twice daily By Mouth False Dulcolax (bisacodyl) 10 mg rectal suppository 10 mg Rectal Daily as needed For constipation 10 mg 2023 Active 2023 53162 62608 1 Daily as needed Rectal False Citalopram 20 mg tablet [generic] 20 mg By Mouth Once daily For anxiety 20 mg 2023 Active 2023 84932 37755 1 Once daily By Mouth False Aspercreme (lidocaine HCl) 4 % topical 4 % Topical Three times daily as needed For pain to feet and legs 4 % 2023 Active 2023 53684 75561 0 Three times daily as needed Topica l False Haloperidol lactate 2 mg/mL oral concentrate [generic] 0.5ml By Mouth Every 4 hours as needed For agitation 0.5ml 2023 Active 2023 97715 72394 4 Every 4 hours as needed By Mouth False Haloperidol lactate 2 mg/mL oral concentrate [generic] 0.25ml By Mouth Every 4 days as needed For nausea/vomiti ng 0.25ml 2023 Active 2023 37068 61051 4 Every 4 days as needed By Mouth False Ipratropium 0.5 mg-albutero l 3 mg (2.5 mg base)/3 mL nebulizatio n soln [generic] 3ml Inhalation Every 6 hours as needed via nebulization route For shortness of breath 3ml 2023 Active 2023 92990 75841 3 Every 6 hours as needed Inhala tion False Lactulose 10 gram/15 mL (15 mL) oral solution [generic] 10 gram/15 m By Mouth Once daily For constipation 10 gram/15 m 2023 Active 2023 02080 78231 0 Once daily By Mouth False Morphine concentrate 100 mg/5 mL (20 mg/mL) oral solution [generic] 0.25ml (5mg) By Mouth Every 2 hours as needed For shortness of breath or pain 0.25ml (5mg) 2023 Active 2023 09509 68241 1 Every 2 hours as needed By Mouth False Pantoprazol e 40 mg tablet,fern yed release [generic] 40 mg By Mouth Once daily For GERD 40 mg 2023 Active 2023 43404 16360 0 Once daily By Mouth False Pregabalin 25 mg capsule [generic] 25 mg By Mouth 3 times a day For pain 25 mg 2023 Active 2023 49109 21027 9 3 times a day By Mouth False Tramadol 50 mg tablet [generic] 50 mg By Mouth Twice daily For pain 50 mg 2023 Active 2023 02074 37016 0 Twice daily By Mouth False Xanax 0.25 mg tablet 0.25 mg By Mouth Three times daily as needed For anxiety 0.25 mg 2023 Active 2023 60761 02109 1 Three times daily as needed By Mouth False Zyprexa 2.5 mg tablet 2.5 mg By Mouth At bedtime For major depressive disorder 2.5 mg 2023 Active 2023 22388 62486 0 At bedtime By Mouth False Tylenol Extra Strength 500 mg tablet 500 mg By Mouth 3 times a day For pain 500 mg 2023 Active 2023 17710 84725 6 3 times a day By Mouth False Senna 8.8 mg/5 mL oral syrup Twice daily administer senna 5mL For constipation 8.8 mg/5 mL 2023 Active 2023 85306 65739 8 Twice daily By Mouth False Dulcolax (bisacodyl) 10 mg rectal suppository 10 mg Rectal Daily as needed For constipation 10 mg 2023 Active 2023 59979 70715 1 Daily as needed Rectal False Citalopram 20 mg tablet [generic] 20 mg By Mouth Once daily For anxiety 20 mg 2023 Active 2023 95963 79181 1 Once daily By Mouth False Aspercreme (lidocaine HCl) 4 % topical 4 % Topical Three times daily as needed For pain to feet and legs 4 % 2023 Active 2023 63841 08925 0 Three times daily as needed Topica l False Haloperidol lactate 2 mg/mL oral concentrate [generic] 0.5ml By Mouth Every 4 hours as needed For agitation 0.5ml 2023 Active 2023 56015 98290 4 Every 4 hours as needed By Mouth False Haloperidol lactate 2 mg/mL oral concentrate [generic] 0.25ml By Mouth Every 4 days as needed For nausea/vomiti ng 0.25ml 2023 Active 2023 59500 28141 4 Every 4 days as needed By Mouth False Ipratropium 0.5 mg-albutero l 3 mg (2.5 mg base)/3 mL nebulizatio n soln [generic] 3ml Inhalation Every 6 hours as needed via nebulization route For shortness of breath 3ml 2023 Active 2023 63259 58041 3 Every 6 hours as needed Inhala tion False Lactulose 10 gram/15 mL (15 mL) oral solution [generic] 10 gram/15 m By Mouth Once daily For constipation 10 gram/15 m 2023 Active 2023 84935 14255 0 Once daily By Mouth False Morphine concentrate 100 mg/5 mL (20 mg/mL) oral solution [generic] 0.25ml (5mg) By Mouth Every 2 hours as needed For shortness of breath or pain 0.25ml (5mg) 2023 Active 2023 43694 84308 1 Every 2 hours as needed By Mouth False Pantoprazol e 40 mg tablet,fern yed release [generic] 40 mg By Mouth Once daily For GERD 40 mg 2023 Active 2023 32718 57686 0 Once daily By Mouth False Pregabalin 25 mg capsule [generic] 25 mg By Mouth 3 times a day For pain 25 mg 2023 Active 2023 72946 85886 9 3 times a day By Mouth False Tramadol 50 mg tablet [generic] 50 mg By Mouth Twice daily For pain 50 mg 2023 Active 2023 28794 30093 0 Twice daily By Mouth False Xanax 0.25 mg tablet 0.25 mg By Mouth Three times daily as needed For anxiety 0.25 mg 2023 Active 2023 86789 33042 1 Three times daily as needed By Mouth False Zyprexa 2.5 mg tablet 2.5 mg By Mouth At bedtime For major depressive disorder 2.5 mg 2023 Active 20232 91662 0 At bedtime By Mouth False Tylenol Extra Strength 500 mg tablet 500 mg By Mouth 3 times a day For pain 500 mg 2023 Active 2023 18571 22984 6 3 times a day By Mouth False Senna 8.8 mg/5 mL oral syrup Twice daily administer senna 5mL For constipation 8.8 mg/5 mL 2023 Active 2023 31107 74111 8 Twice daily By Mouth False Dulcolax (bisacodyl) 10 mg rectal suppository 10 mg Rectal Daily as needed For constipation 10 mg 2023 Active 2023 04909 73967 1 Daily as needed Rectal False Citalopram 20 mg tablet [generic] 20 mg By Mouth Once daily For anxiety 20 mg 2023 Active 2023 66121 71505 1 Once daily By Mouth False Aspercreme (lidocaine HCl) 4 % topical 4 % Topical Three times daily as needed For pain to feet and legs 4 % 2023 Active 2023 69610 35041 0 Three times daily as needed Topica l False Haloperidol lactate 2 mg/mL oral concentrate [generic] 0.5ml By Mouth Every 4 hours as needed For agitation 0.5ml 2023 Active 2023 02988 35846 4 Every 4 hours as needed By Mouth False Haloperidol lactate 2 mg/mL oral concentrate [generic] 0.25ml By Mouth Every 4 days as needed For nausea/vomiti ng 0.25ml 2023 Active 2023 15373 25205 4 Every 4 days as needed By Mouth False Ipratropium 0.5 mg-albutero l 3 mg (2.5 mg base)/3 mL nebulizatio n soln [generic] 3ml Inhalation Every 6 hours as needed via nebulization route For shortness of breath 3ml 2023 Active 2023 02950 44610 3 Every 6 hours as needed Inhala tion False Morphine concentrate 100 mg/5 mL (20 mg/mL) oral solution [generic] 0.25ml (5mg) By Mouth Every 2 hours as needed For shortness of breath or pain 0.25ml (5mg) 2023 Active 2023 68138 15388 1 Every 2 hours as needed By Mouth False Pregabalin 75 mg capsule [generic] 75 mg By Mouth 3 times a day For pain 75 mg 2023 Active 2023 22261 31801 9 3 times a day By Mouth False Senna 8.8 mg/5 mL oral syrup 5ml By Mouth Twice daily as needed For constipation 5ml 2023 Active 2023 63331 05077 8 Twice daily as needed By Mouth False Tramadol 50 mg tablet [generic] 50 mg By Mouth Twice daily For pain 50 mg 2023 Active 2023 93531 55396 0 Twice daily By Mouth False Zyprexa 2.5 mg tablet 2.5 mg By Mouth At bedtime For major depressive disorder 2.5 mg 2023 Active 2023 92643 19429 0 At bedtime By Mouth False Tylenol Extra Strength 500 mg tablet 500 mg By Mouth 3 times a day For pain 500 mg 2023 Active 2023 08636 17862 6 3 times a day By Mouth False Trazodone 50 mg tablet [generic] ONE HALF TAB 25mg By Mouth At bedtime For sleep 25mg 2023 Active 2023 59842 80939 1 At bedtime By Mouth False Klonopin 0.5 mg tablet 0.5mg By Mouth At bedtime For sleep 0.5mg 2023 Active 2023 95102 43958 2 At bedtime By Mouth False VITAL SIGNS Date Time Diastolic blood pressure Systolic blood pressure Body height Body weight Temperature SpO2 Blood Sugar Pulse Respirations 101 13096 8 55.00 mm[Hg] - Lying Down 154.00 mm[Hg] - Lying Down 154.00 NI 98.10 Forehead Scan 94.00 % 76.00/ min 18.00/min 101 31163 2 64 NI Immunizations Vaccine Date Status COVID-19 05/25/2020 Completed COVID-19 06/15/2020 Completed Influenza 05/12/2023 Completed (PCV20)Pneumococcal 05/12/2023 Completed
--- OUTSIDE RECORDS SUMMARY | 2024-04-08 21:56 | External Medical Summary | Continuity Of Care Document ---
Author Name Unknown Address [address] [address] Organization [facility] () Care Team Providers Care Environmental Conservation Officer Name Role Phone DO Woody Amy Primary Care Provider [phone] Allergies Allergy Reaction Start Date End Date [...] Day 3 0.1 mL 03/21 Active 2023 16105 45846 0 1 time Intrad ermal False Tubersol 5 tub. unit/0.1 mL intradermal injection solution [Tuberculin PPD] 0.1mL Intradermal 1 time For PPD 2nd Step Give 2nd Step PPD Day 1 and Read results Day 3 (schedule 7 days after 1st READ) 0.1mL 03/31 Active 2023 27483 98374 0 1 time Intrad ermal False Aspercreme (lidocaine HCl) 4 % topical 4 % Topical Three times daily as needed For pain to feet and legs 4 % 11/08 Inactiv e 2023 87434 00733 0 Three times daily as needed Topica l False Citalopram 20 mg tablet [generic] 20 mg By Mouth Once daily For anxiety 20 mg 11/08 Inactiv e 2023 97283 41929 1 Once daily By Mouth False Dulcolax (bisacodyl) 10 mg rectal suppository 10 mg Rectal Daily as needed For constipation 10 mg 11/12 Inactiv e 2023 27969 45232 1 Daily as needed Rectal False Citalopram 20 mg tablet [generic] 20 mg By Mouth Once daily For anxiety 20 mg 11/12 Inactiv e 2023 83549 18598 1 Once daily By Mouth False Aspercreme (lidocaine HCl) 4 % topical 4 % Topical Three times daily as needed For pain to feet and legs 4 % 11/12 Inactiv e 2023 90451 51087 0 Three times daily as needed Topica l False Haloperidol lactate 2 mg/mL oral concentrate [generic] 0.5ml By Mouth Every 4 hours as needed For agitation 0.5ml 11/12 Inactiv e 2023 54295 59153 4 Every 4 hours as needed By Mouth False Haloperidol lactate 2 mg/mL oral concentrate [generic] 0.25ml By Mouth Every 4 days as needed For nausea/vomiti ng 0.25ml 11/12 Inactiv e 2023 74158 44605 4 Every 4 days as needed By Mouth False Ipratropium 0.5 mg-albutero l 3 mg (2.5 mg base)/3 mL nebulizatio n soln [generic] 3ml Inhalation Every 6 hours as needed via nebulization route For shortness of breath 3ml 11/12 Inactiv e 2023 11382 83328 3 Every 6 hours as needed Inhala tion False Lactulose 10 gram/15 mL (15 mL) oral solution [generic] 10 gram/15 m By Mouth Once daily For constipation 10 gram/15 m 11/12 Inactiv e 2023 45134 44637 0 Once daily By Mouth False Morphine concentrate 100 mg/5 mL (20 mg/mL) oral solution [generic] 0.25ml (5mg) By Mouth Every 2 hours as needed For shortness of breath or pain 0.25ml (5mg) 11/12 Inactiv e 2023 23068 29542 1 Every 2 hours as needed By Mouth False Pantoprazol e 40 mg tablet,fern yed release [generic] 40 mg By Mouth Once daily For GERD 40 mg 11/12 Inactiv e 2023 13421 92308 0 Once daily By Mouth False Pregabalin 25 mg capsule [generic] 25 mg By Mouth 3 times a day For pain 25 mg 11/12 Inactiv e 2023 81925 72346 9 3 times a day By Mouth False Senna 8.8 mg/5 mL oral syrup 5ml By Mouth Twice daily as needed For constipation 5ml 11/09 Inactiv e 2023 91609 94118 8 Twice daily as needed By Mouth False Tramadol 50 mg tablet [generic] 50 mg By Mouth Twice daily For pain 50 mg 11/12 Inactiv e 2023 08542 63561 0 Twice daily By Mouth False Tylenol Arthritis Pain 650 mg tablet,exte nded release 650 mg By Mouth 3 times a day For pain 650 mg 11/08 Inactiv e 2023 17706 36944 1 3 times a day By Mouth False Xanax 0.25 mg tablet 0.25 mg By Mouth Three times daily as needed For anxiety 0.25 mg 11/12 Inactiv e 2023 86162 99608 1 Three times daily as needed By Mouth False Zyprexa 2.5 mg tablet 2.5 mg By Mouth At bedtime For major depressive disorder 2.5 mg 11/12 Inactiv e 2023 48840 20567 0 At bedtime By Mouth False Tylenol 325 mg tablet 650 mg By Mouth 3 times a day For pain 650 mg 11/09 Inactiv e 2023 67170 11964 0 3 times a day By Mouth False Tylenol Extra Strength 500 mg tablet 500 mg By Mouth 3 times a day For pain 500 mg 11/12 Inactiv e 2023 15596 59084 6 3 times a day By Mouth False Senna 8.8 mg/5 mL oral syrup Twice daily administer senna 5mL For constipation 8.8 mg/5 mL 11/12 Inactiv e 2023 35022 59641 8 Twice daily By Mouth False Dulcolax (bisacodyl) 10 mg rectal suppository 10 mg Rectal Daily as needed For constipation 10 mg 2023 Active 2023 27766 54617 1 Daily as needed Rectal False Citalopram 20 mg tablet [generic] 20 mg By Mouth Once daily For anxiety 20 mg 2023 Active 2023 69225 91164 1 Once daily By Mouth False Aspercreme (lidocaine HCl) 4 % topical 4 % Topical Three times daily as needed For pain to feet and legs 4 % 2023 Active 2023 93992 62200 0 Three times daily as needed Topica l False Haloperidol lactate 2 mg/mL oral concentrate [generic] 0.5ml By Mouth Every 4 hours as needed For agitation 0.5ml 2023 Active 2023 74302 60685 4 Every 4 hours as needed By Mouth False Haloperidol lactate 2 mg/mL oral concentrate [generic] 0.25ml By Mouth Every 4 days as needed For nausea/vomiti ng 0.25ml 2023 Active 2023 77472 98019 4 Every 4 days as needed By Mouth False Ipratropium 0.5 mg-albutero l 3 mg (2.5 mg base)/3 mL nebulizatio n soln [generic] 3ml Inhalation Every 6 hours as needed via nebulization route For shortness of breath 3ml 2023 Active 2023 20626 47542 3 Every 6 hours as needed Inhala tion False Lactulose 10 gram/15 mL (15 mL) oral solution [generic] 10 gram/15 m By Mouth Once daily For constipation 10 gram/15 m 2023 Active 2023 91936 01524 0 Once daily By Mouth False Morphine concentrate 100 mg/5 mL (20 mg/mL) oral solution [generic] 0.25ml (5mg) By Mouth Every 2 hours as needed For shortness of breath or pain 0.25ml (5mg) 2023 Active 2023 21610 14252 1 Every 2 hours as needed By Mouth False Pantoprazol e 40 mg tablet,fern yed release [generic] 40 mg By Mouth Once daily For GERD 40 mg 2023 Active 2023 25314 26439 0 Once daily By Mouth False Pregabalin 25 mg capsule [generic] 25 mg By Mouth 3 times a day For pain 25 mg 2023 Active 2023 06188 82276 9 3 times a day By Mouth False Tramadol 50 mg tablet [generic] 50 mg By Mouth Twice daily For pain 50 mg 2023 Active 2023 06323 98825 0 Twice daily By Mouth False Xanax 0.25 mg tablet 0.25 mg By Mouth Three times daily as needed For anxiety 0.25 mg 2023 Active 2023 56642 21144 1 Three times daily as needed By Mouth False Zyprexa 2.5 mg tablet 2.5 mg By Mouth At bedtime For major depressive disorder 2.5 mg 2023 Active 2023 42751 08362 0 At bedtime By Mouth False Tylenol Extra Strength 500 mg tablet 500 mg By Mouth 3 times a day For pain 500 mg 2023 Active 2023 78429 95661 6 3 times a day By Mouth False Senna 8.8 mg/5 mL oral syrup Twice daily administer senna 5mL For constipation 8.8 mg/5 mL 2023 Active 2023 88736 18447 8 Twice daily By Mouth False Dulcolax (bisacodyl) 10 mg rectal suppository 10 mg Rectal Daily as needed For constipation 10 mg 2023 Active 2023 90064 92075 1 Daily as needed Rectal False Citalopram 20 mg tablet [generic] 20 mg By Mouth Once daily For anxiety 20 mg 2023 Active 2023 65207 79666 1 Once daily By Mouth False Aspercreme (lidocaine HCl) 4 % topical 4 % Topical Three times daily as needed For pain to feet and legs 4 % 2023 Active 2023 22725 91150 0 Three times daily as needed Topica l False Haloperidol lactate 2 mg/mL oral concentrate [generic] 0.5ml By Mouth Every 4 hours as needed For agitation 0.5ml 2023 Active 202321 10117 4 Every 4 hours as needed By Mouth False Haloperidol lactate 2 mg/mL oral concentrate [generic] 0.25ml By Mouth Every 4 days as needed For nausea/vomiti ng 0.25ml 2023 Active 202321 18062 4 Every 4 days as needed By Mouth False Ipratropium 0.5 mg-albutero l 3 mg (2.5 mg base)/3 mL nebulizatio n soln [generic] 3ml Inhalation Every 6 hours as needed via nebulization route For shortness of breath 3ml 2023 Active 2023 80427 67127 3 Every 6 hours as needed Inhala tion False VITAL SIGNS Date Time Diastolic blood pressure Systolic blood pressure Body height Body weight Temperature SpO2 Blood Sugar Pulse Respirations 101 33860 8 55.00 mm[Hg] - Lying Down 154.00 mm[Hg] - Lying Down 154.00 NI 98.10 Forehead Scan 94.00 % 76.00/ min 18.00/min 53935 101 39442 2 64 NI Immunizations Vaccine Date Status COVID-19 05/25/2020 Completed COVID-19 06/15/2020 Completed Influenza 05/12/2023 Completed (PCV20)Pneumococcal 05/12/2023 Completed
--- OUTSIDE RECORDS SUMMARY | 2024-04-08 21:56 | External Medical Summary | Continuity Of Care Document ---
Author Name Unknown Address [address] [address] Organization [facility] () Care Team Providers Care Instructor Military Science Name Role Phone DO Woody Amy Primary Care Provider [phone] Allergies Allergy Reaction Start Date End Date [...] Day 3 0.1 mL 03/21 Active 2023 53982 36771 0 1 time Intrad ermal False Tubersol 5 tub. unit/0.1 mL intradermal injection solution [Tuberculin PPD] 0.1mL Intradermal 1 time For PPD 2nd Step Give 2nd Step PPD Day 1 and Read results Day 3 (schedule 7 days after 1st READ) 0.1mL 03/31 Active 2023 45831 46699 0 1 time Intrad ermal False Aspercreme (lidocaine HCl) 4 % topical 4 % Topical Three times daily as needed For pain to feet and legs 4 % 11/08 Inactiv e 2023 10475 67419 0 Three times daily as needed Topica l False Citalopram 20 mg tablet [generic] 20 mg By Mouth Once daily For anxiety 20 mg 11/08 Inactiv e 2023 10737 74262 1 Once daily By Mouth False Dulcolax (bisacodyl) 10 mg rectal suppository 10 mg Rectal Daily as needed For constipation 10 mg 11/12 Inactiv e 2023 65894 83290 1 Daily as needed Rectal False Citalopram 20 mg tablet [generic] 20 mg By Mouth Once daily For anxiety 20 mg 11/12 Inactiv e 2023 08812 05576 1 Once daily By Mouth False Aspercreme (lidocaine HCl) 4 % topical 4 % Topical Three times daily as needed For pain to feet and legs 4 % 11/12 Inactiv e 2023 12118 95046 0 Three times daily as needed Topica l False Haloperidol lactate 2 mg/mL oral concentrate [generic] 0.5ml By Mouth Every 4 hours as needed For agitation 0.5ml 11/12 Inactiv e 2023 20869 24777 4 Every 4 hours as needed By Mouth False Haloperidol lactate 2 mg/mL oral concentrate [generic] 0.25ml By Mouth Every 4 days as needed For nausea/vomiti ng 0.25ml 11/12 Inactiv e 2023 81742 85579 4 Every 4 days as needed By Mouth False Ipratropium 0.5 mg-albutero l 3 mg (2.5 mg base)/3 mL nebulizatio n soln [generic] 3ml Inhalation Every 6 hours as needed via nebulization route For shortness of breath 3ml 11/12 Inactiv e 2023 87208 33814 3 Every 6 hours as needed Inhala tion False Lactulose 10 gram/15 mL (15 mL) oral solution [generic] 10 gram/15 m By Mouth Once daily For constipation 10 gram/15 m 11/12 Inactiv e 2023 41716 97879 0 Once daily By Mouth False Morphine concentrate 100 mg/5 mL (20 mg/mL) oral solution [generic] 0.25ml (5mg) By Mouth Every 2 hours as needed For shortness of breath or pain 0.25ml (5mg) 11/12 Inactiv e 2023 32344 57962 1 Every 2 hours as needed By Mouth False Pantoprazol e 40 mg tablet,fern yed release [generic] 40 mg By Mouth Once daily For GERD 40 mg 11/12 Inactiv e 2023 78766 27056 0 Once daily By Mouth False Pregabalin 25 mg capsule [generic] 25 mg By Mouth 3 times a day For pain 25 mg 11/12 Inactiv e 2023 74871 19452 9 3 times a day By Mouth False Senna 8.8 mg/5 mL oral syrup 5ml By Mouth Twice daily as needed For constipation 5ml 11/09 Inactiv e 2023 86338 24515 8 Twice daily as needed By Mouth False Tramadol 50 mg tablet [generic] 50 mg By Mouth Twice daily For pain 50 mg 11/12 Inactiv e 2023 92219 84494 0 Twice daily By Mouth False Tylenol Arthritis Pain 650 mg tablet,exte nded release 650 mg By Mouth 3 times a day For pain 650 mg 11/08 Inactiv e 2023 93674 41877 1 3 times a day By Mouth False Xanax 0.25 mg tablet 0.25 mg By Mouth Three times daily as needed For anxiety 0.25 mg 11/12 Inactiv e 2023 97639 37262 1 Three times daily as needed By Mouth False Zyprexa 2.5 mg tablet 2.5 mg By Mouth At bedtime For major depressive disorder 2.5 mg 11/12 Inactiv e 2023 57614 17541 0 At bedtime By Mouth False Tylenol 325 mg tablet 650 mg By Mouth 3 times a day For pain 650 mg 11/09 Inactiv e 2023 43240 24169 0 3 times a day By Mouth False Tylenol Extra Strength 500 mg tablet 500 mg By Mouth 3 times a day For pain 500 mg 11/12 Inactiv e 2023 91787 14750 6 3 times a day By Mouth False Senna 8.8 mg/5 mL oral syrup Twice daily administer senna 5mL For constipation 8.8 mg/5 mL 11/12 Inactiv e 2023 74548 34640 8 Twice daily By Mouth False Dulcolax (bisacodyl) 10 mg rectal suppository 10 mg Rectal Daily as needed For constipation 10 mg 2023 Active 2023 38073 06330 1 Daily as needed Rectal False Citalopram 20 mg tablet [generic] 20 mg By Mouth Once daily For anxiety 20 mg 2023 Active 2023 73369 70337 1 Once daily By Mouth False Aspercreme (lidocaine HCl) 4 % topical 4 % Topical Three times daily as needed For pain to feet and legs 4 % 2023 Active 2023 04215 59236 0 Three times daily as needed Topica l False Haloperidol lactate 2 mg/mL oral concentrate [generic] 0.5ml By Mouth Every 4 hours as needed For agitation 0.5ml 2023 Active 2023 29396 13653 4 Every 4 hours as needed By Mouth False Haloperidol lactate 2 mg/mL oral concentrate [generic] 0.25ml By Mouth Every 4 days as needed For nausea/vomiti ng 0.25ml 2023 Active 2023 34841 22427 4 Every 4 days as needed By Mouth False Ipratropium 0.5 mg-albutero l 3 mg (2.5 mg base)/3 mL nebulizatio n soln [generic] 3ml Inhalation Every 6 hours as needed via nebulization route For shortness of breath 3ml 2023 Active 2023 46932 87206 3 Every 6 hours as needed Inhala tion False Lactulose 10 gram/15 mL (15 mL) oral solution [generic] 10 gram/15 m By Mouth Once daily For constipation 10 gram/15 m 2023 Active 2023 42117 08726 0 Once daily By Mouth False Morphine concentrate 100 mg/5 mL (20 mg/mL) oral solution [generic] 0.25ml (5mg) By Mouth Every 2 hours as needed For shortness of breath or pain 0.25ml (5mg) 2023 Active 2023 46562 13784 1 Every 2 hours as needed By Mouth False Pantoprazol e 40 mg tablet,fern yed release [generic] 40 mg By Mouth Once daily For GERD 40 mg 2023 Active 2023 37356 50555 0 Once daily By Mouth False Pregabalin 25 mg capsule [generic] 25 mg By Mouth 3 times a day For pain 25 mg 2023 Active 2023 94624 83665 9 3 times a day By Mouth False Tramadol 50 mg tablet [generic] 50 mg By Mouth Twice daily For pain 50 mg 2023 Active 2023 22610 40775 0 Twice daily By Mouth False Xanax 0.25 mg tablet 0.25 mg By Mouth Three times daily as needed For anxiety 0.25 mg 2023 Active 2023 37738 83610 1 Three times daily as needed By Mouth False Zyprexa 2.5 mg tablet 2.5 mg By Mouth At bedtime For major depressive disorder 2.5 mg 2023 Active 2023 75009 45345 0 At bedtime By Mouth False Tylenol Extra Strength 500 mg tablet 500 mg By Mouth 3 times a day For pain 500 mg 2023 Active 2023 82493 02858 6 3 times a day By Mouth False Senna 8.8 mg/5 mL oral syrup Twice daily administer senna 5mL For constipation 8.8 mg/5 mL 2023 Active 2023 20124 61569 8 Twice daily By Mouth False Dulcolax (bisacodyl) 10 mg rectal suppository 10 mg Rectal Daily as needed For constipation 10 mg 2023 Active 2023 97842 12072 1 Daily as needed Rectal False Citalopram 20 mg tablet [generic] 20 mg By Mouth Once daily For anxiety 20 mg 2023 Active 2023 29829 75475 1 Once daily By Mouth False Aspercreme (lidocaine HCl) 4 % topical 4 % Topical Three times daily as needed For pain to feet and legs 4 % 2023 Active 2023 63156 06699 0 Three times daily as needed Topica l False Haloperidol lactate 2 mg/mL oral concentrate [generic] 0.5ml By Mouth Every 4 hours as needed For agitation 0.5ml 2023 Active 2023 95165 95406 4 Every 4 hours as needed By Mouth False Haloperidol lactate 2 mg/mL oral concentrate [generic] 0.25ml By Mouth Every 4 days as needed For nausea/vomiti ng 0.25ml 2023 Active 202321 57600 4 Every 4 days as needed By Mouth False Ipratropium 0.5 mg-albutero l 3 mg (2.5 mg base)/3 mL nebulizatio n soln [generic] 3ml Inhalation Every 6 hours as needed via nebulization route For shortness of breath 3ml 2023 Active 2023 57611 56980 3 Every 6 hours as needed Inhala tion False Lactulose 10 gram/15 mL (15 mL) oral solution [generic] 10 gram/15 m By Mouth Once daily For constipation 10 gram/15 m 2023 Active 2023 39174 75082 0 Once daily By Mouth False Morphine concentrate 100 mg/5 mL (20 mg/mL) oral solution [generic] 0.25ml (5mg) By Mouth Every 2 hours as needed For shortness of breath or pain 0.25ml (5mg) 2023 Active 2023 98097 24679 1 Every 2 hours as needed By Mouth False Pantoprazol e 40 mg tablet,fern yed release [generic] 40 mg By Mouth Once daily For GERD 40 mg 2023 Active 2023 43868 72401 0 Once daily By Mouth False Pregabalin 25 mg capsule [generic] 25 mg By Mouth 3 times a day For pain 25 mg 2023 Active 2023 86352 92442 9 3 times a day By Mouth False Tramadol 50 mg tablet [generic] 50 mg By Mouth Twice daily For pain 50 mg 2023 Active 2023 86717 48771 0 Twice daily By Mouth False Xanax 0.25 mg tablet 0.25 mg By Mouth Three times daily as needed For anxiety 0.25 mg 2023 Active 2023 46505 43180 1 Three times daily as needed By Mouth False Zyprexa 2.5 mg tablet 2.5 mg By Mouth At bedtime For major depressive disorder 2.5 mg 2023 Active 2023 13417 38981 0 At bedtime By Mouth False Tylenol Extra Strength 500 mg tablet 500 mg By Mouth 3 times a day For pain 500 mg 2023 Active 2023 61337 69089 6 3 times a day By Mouth False Senna 8.8 mg/5 mL oral syrup Twice daily administer senna 5mL For constipation 8.8 mg/5 mL 2023 Active 2023 36651 26643 8 Twice daily By Mouth False Dulcolax (bisacodyl) 10 mg rectal suppository 10 mg Rectal Daily as needed For constipation 10 mg 2023 Active 2023 97981 29278 1 Daily as needed Rectal False Citalopram 20 mg tablet [generic] 20 mg By Mouth Once daily For anxiety 20 mg 2023 Active 2023 59341 35352 1 Once daily By Mouth False Aspercreme (lidocaine HCl) 4 % topical 4 % Topical Three times daily as needed For pain to feet and legs 4 % 2023 Active 2023 27886 12462 0 Three times daily as needed Topica l False Haloperidol lactate 2 mg/mL oral concentrate [generic] 0.5ml By Mouth Every 4 hours as needed For agitation 0.5ml 2023 Active 2023 03114 36895 4 Every 4 hours as needed By Mouth False Haloperidol lactate 2 mg/mL oral concentrate [generic] 0.25ml By Mouth Every 4 days as needed For nausea/vomiti ng 0.25ml 2023 Active 2023 19850 10398 4 Every 4 days as needed By Mouth False Ipratropium 0.5 mg-albutero l 3 mg (2.5 mg base)/3 mL nebulizatio n soln [generic] 3ml Inhalation Every 6 hours as needed via nebulization route For shortness of breath 3ml 2023 Active 2023 27588 65522 3 Every 6 hours as needed Inhala tion False Morphine concentrate 100 mg/5 mL (20 mg/mL) oral solution [generic] 0.25ml (5mg) By Mouth Every 2 hours as needed For shortness of breath or pain 0.25ml (5mg) 2023 Active 2023 47046 69531 1 Every 2 hours as needed By Mouth False Pregabalin 75 mg capsule [generic] 75 mg By Mouth 3 times a day For pain 75 mg 2023 Active 2023 08319 11283 9 3 times a day By Mouth False Senna 8.8 mg/5 mL oral syrup 5ml By Mouth Twice daily as needed For constipation 5ml 2023 Active 2023 37050 33555 8 Twice daily as needed By Mouth False Tramadol 50 mg tablet [generic] 50 mg By Mouth Twice daily For pain 50 mg 2023 Active 2023 23748 88777 0 Twice daily By Mouth False Zyprexa 2.5 mg tablet 2.5 mg By Mouth At bedtime For major depressive disorder 2.5 mg 2023 Active 2023 86422 23521 0 At bedtime By Mouth False Tylenol Extra Strength 500 mg tablet 500 mg By Mouth 3 times a day For pain 500 mg 2023 Active 2023 71362 87912 6 3 times a day By Mouth False Trazodone 50 mg tablet [generic] ONE HALF TAB 25mg By Mouth At bedtime For sleep 25mg 2023 Active 2023 48833 65683 1 At bedtime By Mouth False Klonopin 0.5 mg tablet 0.5mg By Mouth At bedtime For sleep 0.5mg 2023 Active 2023 62528 62039 2 At bedtime By Mouth False VITAL SIGNS Date Time Diastolic blood pressure Systolic blood pressure Body height Body weight Temperature SpO2 Blood Sugar Pulse Respirations 101 15774 8 55.00 mm[Hg] - Lying Down 154.00 mm[Hg] - Lying Down 154.00 NI 98.10 Forehead Scan 94.00 % 76.00/ min 18.00/min 101 72782 2 64 NI Immunizations Vaccine Date Status COVID-19 05/25/2020 Completed COVID-19 06/15/2020 Completed Influenza 05/12/2023 Completed (PCV20)Pneumococcal 05/12/2023 Completed
--- OUTSIDE RECORDS SUMMARY | 2024-04-08 21:56 | External Medical Summary | Continuity Of Care Document ---
Author Name Unknown Address [address] [address] Organization [facility] () Care Team Providers Care Foreign Clerk Name Role Phone DO Woody Amy Primary Care Provider [phone] Allergies Allergy Reaction Start Date End Date [...] Day 3 0.1 mL 03/21 Active 2023 46766 06504 0 1 time Intrad ermal False Tubersol 5 tub. unit/0.1 mL intradermal injection solution [Tuberculin PPD] 0.1mL Intradermal 1 time For PPD 2nd Step Give 2nd Step PPD Day 1 and Read results Day 3 (schedule 7 days after 1st READ) 0.1mL 03/31 Active 2023 07959 62095 0 1 time Intrad ermal False Aspercreme (lidocaine HCl) 4 % topical 4 % Topical Three times daily as needed For pain to feet and legs 4 % 11/08 Inactiv e 2023 00330 67458 0 Three times daily as needed Topica l False Citalopram 20 mg tablet [generic] 20 mg By Mouth Once daily For anxiety 20 mg 11/08 Inactiv e 2023 15708 88492 1 Once daily By Mouth False Dulcolax (bisacodyl) 10 mg rectal suppository 10 mg Rectal Daily as needed For constipation 10 mg 11/12 Inactiv e 2023 30809 22957 1 Daily as needed Rectal False Citalopram 20 mg tablet [generic] 20 mg By Mouth Once daily For anxiety 20 mg 11/12 Inactiv e 2023 52949 28607 1 Once daily By Mouth False Aspercreme (lidocaine HCl) 4 % topical 4 % Topical Three times daily as needed For pain to feet and legs 4 % 11/12 Inactiv e 2023 62521 25807 0 Three times daily as needed Topica l False Haloperidol lactate 2 mg/mL oral concentrate [generic] 0.5ml By Mouth Every 4 hours as needed For agitation 0.5ml 11/12 Inactiv e 2023 54632 63890 4 Every 4 hours as needed By Mouth False Haloperidol lactate 2 mg/mL oral concentrate [generic] 0.25ml By Mouth Every 4 days as needed For nausea/vomiti ng 0.25ml 11/12 Inactiv e 2023 31010 06955 4 Every 4 days as needed By Mouth False Ipratropium 0.5 mg-albutero l 3 mg (2.5 mg base)/3 mL nebulizatio n soln [generic] 3ml Inhalation Every 6 hours as needed via nebulization route For shortness of breath 3ml 11/12 Inactiv e 2023 87595 01074 3 Every 6 hours as needed Inhala tion False Lactulose 10 gram/15 mL (15 mL) oral solution [generic] 10 gram/15 m By Mouth Once daily For constipation 10 gram/15 m 11/12 Inactiv e 2023 14988 78719 0 Once daily By Mouth False Morphine concentrate 100 mg/5 mL (20 mg/mL) oral solution [generic] 0.25ml (5mg) By Mouth Every 2 hours as needed For shortness of breath or pain 0.25ml (5mg) 11/12 Inactiv e 2023 40571 05417 1 Every 2 hours as needed By Mouth False Pantoprazol e 40 mg tablet,fern yed release [generic] 40 mg By Mouth Once daily For GERD 40 mg 11/12 Inactiv e 2023 90084 96497 0 Once daily By Mouth False Pregabalin 25 mg capsule [generic] 25 mg By Mouth 3 times a day For pain 25 mg 11/12 Inactiv e 2023 98381 19742 9 3 times a day By Mouth False Senna 8.8 mg/5 mL oral syrup 5ml By Mouth Twice daily as needed For constipation 5ml 11/09 Inactiv e 2023 01344 48824 8 Twice daily as needed By Mouth False Tramadol 50 mg tablet [generic] 50 mg By Mouth Twice daily For pain 50 mg 11/12 Inactiv e 2023 17882 35417 0 Twice daily By Mouth False Tylenol Arthritis Pain 650 mg tablet,exte nded release 650 mg By Mouth 3 times a day For pain 650 mg 11/08 Inactiv e 2023 85394 12030 1 3 times a day By Mouth False Xanax 0.25 mg tablet 0.25 mg By Mouth Three times daily as needed For anxiety 0.25 mg 11/12 Inactiv e 2023 01778 16821 1 Three times daily as needed By Mouth False Zyprexa 2.5 mg tablet 2.5 mg By Mouth At bedtime For major depressive disorder 2.5 mg 11/12 Inactiv e 2023 86981 31174 0 At bedtime By Mouth False Tylenol 325 mg tablet 650 mg By Mouth 3 times a day For pain 650 mg 11/09 Inactiv e 2023 31806 83123 0 3 times a day By Mouth False Tylenol Extra Strength 500 mg tablet 500 mg By Mouth 3 times a day For pain 500 mg 11/12 Inactiv e 2023 19420 25289 6 3 times a day By Mouth False Senna 8.8 mg/5 mL oral syrup Twice daily administer senna 5mL For constipation 8.8 mg/5 mL 11/12 Inactiv e 2023 70441 64696 8 Twice daily By Mouth False Dulcolax (bisacodyl) 10 mg rectal suppository 10 mg Rectal Daily as needed For constipation 10 mg 2023 Active 2023 30766 01839 1 Daily as needed Rectal False Citalopram 20 mg tablet [generic] 20 mg By Mouth Once daily For anxiety 20 mg 2023 Active 2023 98556 40917 1 Once daily By Mouth False Aspercreme (lidocaine HCl) 4 % topical 4 % Topical Three times daily as needed For pain to feet and legs 4 % 2023 Active 2023 09711 81899 0 Three times daily as needed Topica l False Haloperidol lactate 2 mg/mL oral concentrate [generic] 0.5ml By Mouth Every 4 hours as needed For agitation 0.5ml 2023 Active 2023 57509 57203 4 Every 4 hours as needed By Mouth False Haloperidol lactate 2 mg/mL oral concentrate [generic] 0.25ml By Mouth Every 4 days as needed For nausea/vomiti ng 0.25ml 2023 Active 2023 31008 69024 4 Every 4 days as needed By Mouth False Ipratropium 0.5 mg-albutero l 3 mg (2.5 mg base)/3 mL nebulizatio n soln [generic] 3ml Inhalation Every 6 hours as needed via nebulization route For shortness of breath 3ml 2023 Active 2023 81016 39300 3 Every 6 hours as needed Inhala tion False Lactulose 10 gram/15 mL (15 mL) oral solution [generic] 10 gram/15 m By Mouth Once daily For constipation 10 gram/15 m 2023 Active 2023 98193 65482 0 Once daily By Mouth False Morphine concentrate 100 mg/5 mL (20 mg/mL) oral solution [generic] 0.25ml (5mg) By Mouth Every 2 hours as needed For shortness of breath or pain 0.25ml (5mg) 2023 Active 2023 83245 45513 1 Every 2 hours as needed By Mouth False Pantoprazol e 40 mg tablet,fern yed release [generic] 40 mg By Mouth Once daily For GERD 40 mg 2023 Active 2023 61686 16995 0 Once daily By Mouth False Pregabalin 25 mg capsule [generic] 25 mg By Mouth 3 times a day For pain 25 mg 2023 Active 2023 85204 40394 9 3 times a day By Mouth False Tramadol 50 mg tablet [generic] 50 mg By Mouth Twice daily For pain 50 mg 2023 Active 2023 32969 12398 0 Twice daily By Mouth False Xanax 0.25 mg tablet 0.25 mg By Mouth Three times daily as needed For anxiety 0.25 mg 2023 Active 2023 49786 41133 1 Three times daily as needed By Mouth False Zyprexa 2.5 mg tablet 2.5 mg By Mouth At bedtime For major depressive disorder 2.5 mg 2023 Active 2023 86778 73626 0 At bedtime By Mouth False Tylenol Extra Strength 500 mg tablet 500 mg By Mouth 3 times a day For pain 500 mg 2023 Active 2023 53995 96006 6 3 times a day By Mouth False Senna 8.8 mg/5 mL oral syrup Twice daily administer senna 5mL For constipation 8.8 mg/5 mL 2023 Active 2023 74403 31883 8 Twice daily By Mouth False Dulcolax (bisacodyl) 10 mg rectal suppository 10 mg Rectal Daily as needed For constipation 10 mg 2023 Active 2023 96219 05695 1 Daily as needed Rectal False Citalopram 20 mg tablet [generic] 20 mg By Mouth Once daily For anxiety 20 mg 2023 Active 2023 17785 30154 1 Once daily By Mouth False Aspercreme (lidocaine HCl) 4 % topical 4 % Topical Three times daily as needed For pain to feet and legs 4 % 2023 Active 2023 51315 32158 0 Three times daily as needed Topica l False Haloperidol lactate 2 mg/mL oral concentrate [generic] 0.5ml By Mouth Every 4 hours as needed For agitation 0.5ml 2023 Active 2023 12868 53989 4 Every 4 hours as needed By Mouth False Haloperidol lactate 2 mg/mL oral concentrate [generic] 0.25ml By Mouth Every 4 days as needed For nausea/vomiti ng 0.25ml 2023 Active 202321 42669 4 Every 4 days as needed By Mouth False Ipratropium 0.5 mg-albutero l 3 mg (2.5 mg base)/3 mL nebulizatio n soln [generic] 3ml Inhalation Every 6 hours as needed via nebulization route For shortness of breath 3ml 2023 Active 2023 05500 78273 3 Every 6 hours as needed Inhala tion False Lactulose 10 gram/15 mL (15 mL) oral solution [generic] 10 gram/15 m By Mouth Once daily For constipation 10 gram/15 m 2023 Active 2023 46856 96391 0 Once daily By Mouth False Morphine concentrate 100 mg/5 mL (20 mg/mL) oral solution [generic] 0.25ml (5mg) By Mouth Every 2 hours as needed For shortness of breath or pain 0.25ml (5mg) 2023 Active 2023 78156 12282 1 Every 2 hours as needed By Mouth False Pantoprazol e 40 mg tablet,fern yed release [generic] 40 mg By Mouth Once daily For GERD 40 mg 2023 Active 2023 54965 79669 0 Once daily By Mouth False Pregabalin 25 mg capsule [generic] 25 mg By Mouth 3 times a day For pain 25 mg 2023 Active 2023 91531 70400 9 3 times a day By Mouth False Tramadol 50 mg tablet [generic] 50 mg By Mouth Twice daily For pain 50 mg 2023 Active 2023 06372 44721 0 Twice daily By Mouth False Xanax 0.25 mg tablet 0.25 mg By Mouth Three times daily as needed For anxiety 0.25 mg 2023 Active 2023 74895 37701 1 Three times daily as needed By Mouth False Zyprexa 2.5 mg tablet 2.5 mg By Mouth At bedtime For major depressive disorder 2.5 mg 2023 Active 2023 83888 14059 0 At bedtime By Mouth False Tylenol Extra Strength 500 mg tablet 500 mg By Mouth 3 times a day For pain 500 mg 2023 Active 2023 24234 15783 6 3 times a day By Mouth False Senna 8.8 mg/5 mL oral syrup Twice daily administer senna 5mL For constipation 8.8 mg/5 mL 2023 Active 2023 27578 26618 8 Twice daily By Mouth False Dulcolax (bisacodyl) 10 mg rectal suppository 10 mg Rectal Daily as needed For constipation 10 mg 2023 Active 2023 23936 60337 1 Daily as needed Rectal False Citalopram 20 mg tablet [generic] 20 mg By Mouth Once daily For anxiety 20 mg 2023 Active 2023 53300 88162 1 Once daily By Mouth False Aspercreme (lidocaine HCl) 4 % topical 4 % Topical Three times daily as needed For pain to feet and legs 4 % 2023 Active 2023 69380 40492 0 Three times daily as needed Topica l False Haloperidol lactate 2 mg/mL oral concentrate [generic] 0.5ml By Mouth Every 4 hours as needed For agitation 0.5ml 2023 Active 2023 82689 17482 4 Every 4 hours as needed By Mouth False Haloperidol lactate 2 mg/mL oral concentrate [generic] 0.25ml By Mouth Every 4 days as needed For nausea/vomiti ng 0.25ml 2023 Active 2023 23176 82889 4 Every 4 days as needed By Mouth False Ipratropium 0.5 mg-albutero l 3 mg (2.5 mg base)/3 mL nebulizatio n soln [generic] 3ml Inhalation Every 6 hours as needed via nebulization route For shortness of breath 3ml 2023 Active 2023 78658 24213 3 Every 6 hours as needed Inhala tion False Morphine concentrate 100 mg/5 mL (20 mg/mL) oral solution [generic] 0.25ml (5mg) By Mouth Every 2 hours as needed For shortness of breath or pain 0.25ml (5mg) 2023 Active 2023 63188 41791 1 Every 2 hours as needed By Mouth False Pregabalin 75 mg capsule [generic] 75 mg By Mouth 3 times a day For pain 75 mg 2023 Active 2023 76349 02328 9 3 times a day By Mouth False Senna 8.8 mg/5 mL oral syrup 5ml By Mouth Twice daily as needed For constipation 5ml 2023 Active 2023 44320 11680 8 Twice daily as needed By Mouth False Tramadol 50 mg tablet [generic] 50 mg By Mouth Twice daily For pain 50 mg 2023 Active 2023 88287 40882 0 Twice daily By Mouth False Zyprexa 2.5 mg tablet 2.5 mg By Mouth At bedtime For major depressive disorder 2.5 mg 2023 Active 2023 36306 80059 0 At bedtime By Mouth False Tylenol Extra Strength 500 mg tablet 500 mg By Mouth 3 times a day For pain 500 mg 2023 Active 2023 60204 58911 6 3 times a day By Mouth False Trazodone 50 mg tablet [generic] ONE HALF TAB 25mg By Mouth At bedtime For sleep 25mg 2023 Active 2023 84742 94395 1 At bedtime By Mouth False Klonopin 0.5 mg tablet 0.5mg By Mouth At bedtime For sleep 0.5mg 2023 Active 2023 59698 83166 2 At bedtime By Mouth False VITAL SIGNS Date Time Diastolic blood pressure Systolic blood pressure Body height Body weight Temperature SpO2 Blood Sugar Pulse Respirations 101 59135 8 55.00 mm[Hg] - Lying Down 154.00 mm[Hg] - Lying Down 154.00 NI 98.10 Forehead Scan 94.00 % 76.00/ min 18.00/min 101 35882 2 64 NI Immunizations Vaccine Date Status COVID-19 05/25/2020 Completed COVID-19 06/15/2020 Completed Influenza 05/12/2023 Completed (PCV20)Pneumococcal 05/12/2023 Completed
--- OUTSIDE RECORDS SUMMARY | 2024-04-08 21:56 | External Medical Summary | Continuity Of Care Document ---
Author Name Unknown Address [address] [address] Organization [facility] () Care Team Providers Care Ginner Name Role Phone DO Woody Amy Primary Care Provider [phone] Allergies Allergy Reaction Start Date End Date [...] 3 0.1 mL 03/21 Inactiv e 2023 61307 98552 0 1 time Intrad ermal False Tubersol 5 tub. unit/0.1 mL intradermal injection solution [Tuberculin PPD] 0.1mL Intradermal 1 time For PPD 2nd Step Give 2nd Step PPD Day 1 and Read results Day 3 (schedule 7 days after 1st READ) 0.1mL 03/31 Active 2023 69077 68410 0 1 time Intrad ermal False Aspercreme (lidocaine HCl) 4 % topical 4 % Topical Three times daily as needed For pain to feet and legs 4 % 11/08 Inactiv e 2023 22228 02159 0 Three times daily as needed Topica l False Citalopram 20 mg tablet [generic] 20 mg By Mouth Once daily For anxiety 20 mg 11/08 Inactiv e 2023 58777 66485 1 Once daily By Mouth False Dulcolax (bisacodyl) 10 mg rectal suppository 10 mg Rectal Daily as needed For constipation 10 mg 11/12 Inactiv e 2023 80895 31761 1 Daily as needed Rectal False Citalopram 20 mg tablet [generic] 20 mg By Mouth Once daily For anxiety 20 mg 11/12 Inactiv e 2023 39741 13891 1 Once daily By Mouth False Aspercreme (lidocaine HCl) 4 % topical 4 % Topical Three times daily as needed For pain to feet and legs 4 % 11/12 Inactiv e 2023 09813 68329 0 Three times daily as needed Topica l False Haloperidol lactate 2 mg/mL oral concentrate [generic] 0.5ml By Mouth Every 4 hours as needed For agitation 0.5ml 11/12 Inactiv e 2023 46979 12568 4 Every 4 hours as needed By Mouth False Haloperidol lactate 2 mg/mL oral concentrate [generic] 0.25ml By Mouth Every 4 days as needed For nausea/vomiti ng 0.25ml 11/12 Inactiv e 2023 21005 24533 4 Every 4 days as needed By Mouth False Ipratropium 0.5 mg-albutero l 3 mg (2.5 mg base)/3 mL nebulizatio n soln [generic] 3ml Inhalation Every 6 hours as needed via nebulization route For shortness of breath 3ml 11/12 Inactiv e 2023 60366 33675 3 Every 6 hours as needed Inhala tion False Lactulose 10 gram/15 mL (15 mL) oral solution [generic] 10 gram/15 m By Mouth Once daily For constipation 10 gram/15 m 11/12 Inactiv e 2023 37698 39455 0 Once daily By Mouth False Morphine concentrate 100 mg/5 mL (20 mg/mL) oral solution [generic] 0.25ml (5mg) By Mouth Every 2 hours as needed For shortness of breath or pain 0.25ml (5mg) 11/12 Inactiv e 2023 73028 49273 1 Every 2 hours as needed By Mouth False Pantoprazol e 40 mg tablet,fern yed release [generic] 40 mg By Mouth Once daily For GERD 40 mg 11/12 Inactiv e 2023 19240 07714 0 Once daily By Mouth False Pregabalin 25 mg capsule [generic] 25 mg By Mouth 3 times a day For pain 25 mg 11/12 Inactiv e 2023 64939 37821 9 3 times a day By Mouth False Senna 8.8 mg/5 mL oral syrup 5ml By Mouth Twice daily as needed For constipation 5ml 11/09 Inactiv e 2023 04175 99575 8 Twice daily as needed By Mouth False Tramadol 50 mg tablet [generic] 50 mg By Mouth Twice daily For pain 50 mg 11/12 Inactiv e 2023 32806 64068 0 Twice daily By Mouth False Tylenol Arthritis Pain 650 mg tablet,exte nded release 650 mg By Mouth 3 times a day For pain 650 mg 11/08 Inactiv e 2023 61834 79363 1 3 times a day By Mouth False Xanax 0.25 mg tablet 0.25 mg By Mouth Three times daily as needed For anxiety 0.25 mg 11/12 Inactiv e 2023 46253 49374 1 Three times daily as needed By Mouth False Zyprexa 2.5 mg tablet 2.5 mg By Mouth At bedtime For major depressive disorder 2.5 mg 11/12 Inactiv e 2023 97583 13980 0 At bedtime By Mouth False Tylenol 325 mg tablet 650 mg By Mouth 3 times a day For pain 650 mg 11/09 Inactiv e 2023 22490 79255 0 3 times a day By Mouth False Tylenol Extra Strength 500 mg tablet 500 mg By Mouth 3 times a day For pain 500 mg 11/12 Inactiv e 2023 86032 70217 6 3 times a day By Mouth False Senna 8.8 mg/5 mL oral syrup Twice daily administer senna 5mL For constipation 8.8 mg/5 mL 11/12 Inactiv e 2023 86437 79967 8 Twice daily By Mouth False Dulcolax (bisacodyl) 10 mg rectal suppository 10 mg Rectal Daily as needed For constipation 10 mg 2023 Active 2023 09184 05470 1 Daily as needed Rectal False Citalopram 20 mg tablet [generic] 20 mg By Mouth Once daily For anxiety 20 mg 2023 Active 2023 17553 61569 1 Once daily By Mouth False Aspercreme (lidocaine HCl) 4 % topical 4 % Topical Three times daily as needed For pain to feet and legs 4 % 2023 Active 2023 40124 90694 0 Three times daily as needed Topica l False Haloperidol lactate 2 mg/mL oral concentrate [generic] 0.5ml By Mouth Every 4 hours as needed For agitation 0.5ml 2023 Active 2023 38859 43328 4 Every 4 hours as needed By Mouth False Haloperidol lactate 2 mg/mL oral concentrate [generic] 0.25ml By Mouth Every 4 days as needed For nausea/vomiti ng 0.25ml 2023 Active 2023 48046 58307 4 Every 4 days as needed By Mouth False Ipratropium 0.5 mg-albutero l 3 mg (2.5 mg base)/3 mL nebulizatio n soln [generic] 3ml Inhalation Every 6 hours as needed via nebulization route For shortness of breath 3ml 2023 Active 2023 00151 30210 3 Every 6 hours as needed Inhala tion False Lactulose 10 gram/15 mL (15 mL) oral solution [generic] 10 gram/15 m By Mouth Once daily For constipation 10 gram/15 m 2023 Active 2023 59445 80327 0 Once daily By Mouth False Morphine concentrate 100 mg/5 mL (20 mg/mL) oral solution [generic] 0.25ml (5mg) By Mouth Every 2 hours as needed For shortness of breath or pain 0.25ml (5mg) 2023 Active 2023 33937 43838 1 Every 2 hours as needed By Mouth False Pantoprazol e 40 mg tablet,fern yed release [generic] 40 mg By Mouth Once daily For GERD 40 mg 2023 Active 2023 20669 25310 0 Once daily By Mouth False Pregabalin 25 mg capsule [generic] 25 mg By Mouth 3 times a day For pain 25 mg 2023 Active 2023 05792 93734 9 3 times a day By Mouth False Tramadol 50 mg tablet [generic] 50 mg By Mouth Twice daily For pain 50 mg 2023 Active 2023 82578 20002 0 Twice daily By Mouth False Xanax 0.25 mg tablet 0.25 mg By Mouth Three times daily as needed For anxiety 0.25 mg 2023 Active 2023 36163 89704 1 Three times daily as needed By Mouth False Zyprexa 2.5 mg tablet 2.5 mg By Mouth At bedtime For major depressive disorder 2.5 mg 2023 Active 2023 81214 44875 0 At bedtime By Mouth False Tylenol Extra Strength 500 mg tablet 500 mg By Mouth 3 times a day For pain 500 mg 2023 Active 2023 33625 30235 6 3 times a day By Mouth False Senna 8.8 mg/5 mL oral syrup Twice daily administer senna 5mL For constipation 8.8 mg/5 mL 2023 Active 2023 97509 28530 8 Twice daily By Mouth False Dulcolax (bisacodyl) 10 mg rectal suppository 10 mg Rectal Daily as needed For constipation 10 mg 2023 Active 2023 68174 00288 1 Daily as needed Rectal False Citalopram 20 mg tablet [generic] 20 mg By Mouth Once daily For anxiety 20 mg 2023 Active 2023 72482 86063 1 Once daily By Mouth False Aspercreme (lidocaine HCl) 4 % topical 4 % Topical Three times daily as needed For pain to feet and legs 4 % 2023 Active 2023 35971 30012 0 Three times daily as needed Topica l False Haloperidol lactate 2 mg/mL oral concentrate [generic] 0.5ml By Mouth Every 4 hours as needed For agitation 0.5ml 2023 Active 2023 06091 52244 4 Every 4 hours as needed By Mouth False Haloperidol lactate 2 mg/mL oral concentrate [generic] 0.25ml By Mouth Every 4 days as needed For nausea/vomiti ng 0.25ml 2023 Active 2023 47018 30642 4 Every 4 days as needed By Mouth False Ipratropium 0.5 mg-albutero l 3 mg (2.5 mg base)/3 mL nebulizatio n soln [generic] 3ml Inhalation Every 6 hours as needed via nebulization route For shortness of breath 3ml 2023 Active 2023 13029 08572 3 Every 6 hours as needed Inhala tion False Lactulose 10 gram/15 mL (15 mL) oral solution [generic] 10 gram/15 m By Mouth Once daily For constipation 10 gram/15 m 2023 Active 2023 09021 40582 0 Once daily By Mouth False Morphine concentrate 100 mg/5 mL (20 mg/mL) oral solution [generic] 0.25ml (5mg) By Mouth Every 2 hours as needed For shortness of breath or pain 0.25ml (5mg) 2023 Active 2023 43146 79961 1 Every 2 hours as needed By Mouth False Pantoprazol e 40 mg tablet,fern yed release [generic] 40 mg By Mouth Once daily For GERD 40 mg 2023 Active 2023 06645 50507 0 Once daily By Mouth False Pregabalin 25 mg capsule [generic] 25 mg By Mouth 3 times a day For pain 25 mg 2023 Active 2023 62942 33665 9 3 times a day By Mouth False Tramadol 50 mg tablet [generic] 50 mg By Mouth Twice daily For pain 50 mg 2023 Active 2023 33722 92739 0 Twice daily By Mouth False Xanax 0.25 mg tablet 0.25 mg By Mouth Three times daily as needed For anxiety 0.25 mg 2023 Active 2023 73192 70988 1 Three times daily as needed By Mouth False Zyprexa 2.5 mg tablet 2.5 mg By Mouth At bedtime For major depressive disorder 2.5 mg 2023 Active 20232 12671 0 At bedtime By Mouth False Tylenol Extra Strength 500 mg tablet 500 mg By Mouth 3 times a day For pain 500 mg 2023 Active 2023 01435 41996 6 3 times a day By Mouth False Senna 8.8 mg/5 mL oral syrup Twice daily administer senna 5mL For constipation 8.8 mg/5 mL 2023 Active 2023 76986 04014 8 Twice daily By Mouth False Dulcolax (bisacodyl) 10 mg rectal suppository 10 mg Rectal Daily as needed For constipation 10 mg 2023 Active 2023 70660 61304 1 Daily as needed Rectal False Citalopram 20 mg tablet [generic] 20 mg By Mouth Once daily For anxiety 20 mg 2023 Active 2023 78436 83601 1 Once daily By Mouth False Aspercreme (lidocaine HCl) 4 % topical 4 % Topical Three times daily as needed For pain to feet and legs 4 % 2023 Active 2023 10835 35455 0 Three times daily as needed Topica l False Haloperidol lactate 2 mg/mL oral concentrate [generic] 0.5ml By Mouth Every 4 hours as needed For agitation 0.5ml 2023 Active 2023 26503 91845 4 Every 4 hours as needed By Mouth False Haloperidol lactate 2 mg/mL oral concentrate [generic] 0.25ml By Mouth Every 4 days as needed For nausea/vomiti ng 0.25ml 2023 Active 2023 91988 81342 4 Every 4 days as needed By Mouth False Ipratropium 0.5 mg-albutero l 3 mg (2.5 mg base)/3 mL nebulizatio n soln [generic] 3ml Inhalation Every 6 hours as needed via nebulization route For shortness of breath 3ml 2023 Active 2023 80631 22108 3 Every 6 hours as needed Inhala tion False Morphine concentrate 100 mg/5 mL (20 mg/mL) oral solution [generic] 0.25ml (5mg) By Mouth Every 2 hours as needed For shortness of breath or pain 0.25ml (5mg) 2023 Active 2023 26922 03819 1 Every 2 hours as needed By Mouth False Pregabalin 75 mg capsule [generic] 75 mg By Mouth 3 times a day For pain 75 mg 2023 Active 2023 90754 17586 9 3 times a day By Mouth False Senna 8.8 mg/5 mL oral syrup 5ml By Mouth Twice daily as needed For constipation 5ml 2023 Active 2023 23517 83067 8 Twice daily as needed By Mouth False Tramadol 50 mg tablet [generic] 50 mg By Mouth Twice daily For pain 50 mg 2023 Active 2023 87709 48723 0 Twice daily By Mouth False Zyprexa 2.5 mg tablet 2.5 mg By Mouth At bedtime For major depressive disorder 2.5 mg 2023 Active 2023 46804 92765 0 At bedtime By Mouth False Tylenol Extra Strength 500 mg tablet 500 mg By Mouth 3 times a day For pain 500 mg 2023 Active 2023 54849 83395 6 3 times a day By Mouth False Trazodone 50 mg tablet [generic] ONE HALF TAB 25mg By Mouth At bedtime For sleep 25mg 2023 Active 2023 19742 92350 1 At bedtime By Mouth False Klonopin 0.5 mg tablet 0.5mg By Mouth At bedtime For sleep 0.5mg 2023 Active 2023 43785 40547 2 At bedtime By Mouth False VITAL SIGNS Date Time Diastolic blood pressure Systolic blood pressure Body height Body weight Temperature SpO2 Blood Sugar Pulse Respirations 101 98446 8 55.00 mm[Hg] - Lying Down 154.00 mm[Hg] - Lying Down 154.00 NI 98.10 Forehead Scan 94.00 % 76.00/ min 18.00/min 101 06870 2 64 NI Immunizations Vaccine Date Status COVID-19 05/25/2020 Completed COVID-19 06/15/2020 Completed Influenza 05/12/2023 Completed (PCV20)Pneumococcal 05/12/2023 Completed
--- OUTSIDE RECORDS SUMMARY | 2024-04-08 21:57 | External Medical Summary | Continuity Of Care Document ---
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 Name Role Phone DO Woody Amy Primary Care Provider [phone] Allergies Allergy Reaction Start Date End Date Status LORAZEPAM Active PENICILLINS Hives, Rash Active Medications Medication Instructions Dosage Start Date End Date Status Order Date Drug Code Frequency Route of Admin Diagnosis Code Substitutions Allowed Aspercreme (lidocaine HCl) 4 % topical 4 % Topical Three times daily as needed For pain to feet and legs 4 % 11/08 Inactiv e 2023 75099 24993 0 Three times daily as needed Topica l False Citalopram 20 mg tablet [generic] 20 mg By Mouth Once daily For anxiety 20 mg 11/08 Inactiv e 2023 08842 27491 1 Once daily By Mouth False Dulcolax (bisacodyl) 10 mg rectal suppository 10 mg Rectal Daily as needed For constipation 10 mg 11/12 Inactiv e 2023 94284 45757 1 Daily as needed Rectal False Citalopram 20 mg tablet [generic] 20 mg By Mouth Once daily For anxiety 20 mg 11/12 Inactiv e 2023 56755 05380 1 Once daily By Mouth False Aspercreme (lidocaine HCl) 4 % topical 4 % Topical Three times daily as needed For pain to feet and legs 4 % 11/12 Inactiv e 2023 36606 61486 0 Three times daily as needed Topica l False Haloperidol lactate 2 mg/mL oral concentrate [generic] 0.5ml By Mouth Every 4 hours as needed For agitation 0.5ml 11/12 Inactiv e 2023 68060 11455 4 Every 4 hours as needed By Mouth False Haloperidol lactate 2 mg/mL oral concentrate [generic] 0.25ml By Mouth Every 4 days as needed For nausea/vomiti ng 0.25ml 11/12 Inactiv e 2023 88833 98455 4 Every 4 days as needed By Mouth False Ipratropium 0.5 mg-albutero l 3 mg (2.5 mg base)/3 mL nebulizatio n soln [generic] 3ml Inhalation Every 6 hours as needed via nebulization route For shortness of breath 3ml 11/12 Inactiv e 2023 27314 74648 3 Every 6 hours as needed Inhala tion False Lactulose 10 gram/15 mL (15 mL) oral solution [generic] 10 gram/15 m By Mouth Once daily For constipation 10 gram/15 m 11/12 Inactiv e 2023 87840 83633 0 Once daily By Mouth False Morphine concentrate 100 mg/5 mL (20 mg/mL) oral solution [generic] 0.25ml (5mg) By Mouth Every 2 hours as needed For shortness of breath or pain 0.25ml (5mg) 11/12 Inactiv e 2023 97127 44939 1 Every 2 hours as needed By Mouth False Pantoprazol e 40 mg tablet,fern yed release [generic] 40 mg By Mouth Once daily For GERD 40 mg 11/12 Inactiv e 2023 53270 59069 0 Once daily By Mouth False Pregabalin 25 mg capsule [generic] 25 mg By Mouth 3 times a day For pain 25 mg 11/12 Inactiv e 2023 58996 51975 9 3 times a day By Mouth False Senna 8.8 mg/5 mL oral syrup 5ml By Mouth Twice daily as needed For constipation 5ml 11/09 Inactiv e 2023 35251 86770 8 Twice daily as needed By Mouth False Tramadol 50 mg tablet [generic] 50 mg By Mouth Twice daily For pain 50 mg 11/12 Inactiv e 2023 63263 46346 0 Twice daily By Mouth False Tylenol Arthritis Pain 650 mg tablet,exte nded release 650 mg By Mouth 3 times a day For pain 650 mg 11/08 Inactiv e 2023 58066 00654 1 3 times a day By Mouth False Xanax 0.25 mg tablet 0.25 mg By Mouth Three times daily as needed For anxiety 0.25 mg 11/12 Inactiv e 2023 73283 28225 1 Three times daily as needed By Mouth False Zyprexa 2.5 mg tablet 2.5 mg By Mouth At bedtime For major depressive disorder 2.5 mg 11/12 Inactiv e 2023 73451 84125 0 At bedtime By Mouth False Tylenol 325 mg tablet 650 mg By Mouth 3 times a day For pain 650 mg 11/09 Inactiv e 2023 07483 30846 0 3 times a day By Mouth False Tylenol Extra Strength 500 mg tablet 500 mg By Mouth 3 times a day For pain 500 mg 11/12 Inactiv e 2023 13259 63301 6 3 times a day By Mouth False Senna 8.8 mg/5 mL oral syrup Twice daily administer senna 5mL For constipation 8.8 mg/5 mL 11/12 Inactiv e 2023 97535 00595 8 Twice daily By Mouth False Dulcolax (bisacodyl) 10 mg rectal suppository 10 mg Rectal Daily as needed For constipation 10 mg 2023 Active 2023 03486 56966 1 Daily as needed Rectal False Citalopram 20 mg tablet [generic] 20 mg By Mouth Once daily For anxiety 20 mg 2023 Active 2023 78764 72180 1 Once daily By Mouth False Aspercreme (lidocaine HCl) 4 % topical 4 % Topical Three times daily as needed For pain to feet and legs 4 % 2023 Active 2023 27385 41134 0 Three times daily as needed Topica l False Haloperidol lactate 2 mg/mL oral concentrate [generic] 0.5ml By Mouth Every 4 hours as needed For agitation 0.5ml 2023 Active 2023 00386 45761 4 Every 4 hours as needed By Mouth False Haloperidol lactate 2 mg/mL oral concentrate [generic] 0.25ml By Mouth Every 4 days as needed For nausea/vomiti ng 0.25ml 2023 Active 2023 35126 36403 4 Every 4 days as needed By Mouth False Ipratropium 0.5 mg-albutero l 3 mg (2.5 mg base)/3 mL nebulizatio n soln [generic] 3ml Inhalation Every 6 hours as needed via nebulization route For shortness of breath 3ml 2023 Active 2023 52264 31300 3 Every 6 hours as needed Inhala tion False Lactulose 10 gram/15 mL (15 mL) oral solution [generic] 10 gram/15 m By Mouth Once daily For constipation 10 gram/15 m 2023 Active 2023 06070 12706 0 Once daily By Mouth False Morphine concentrate 100 mg/5 mL (20 mg/mL) oral solution [generic] 0.25ml (5mg) By Mouth Every 2 hours as needed For shortness of breath or pain 0.25ml (5mg) 2023 Active 2023 80686 81076 1 Every 2 hours as needed By Mouth False Pantoprazol e 40 mg tablet,fern yed release [generic] 40 mg By Mouth Once daily For GERD 40 mg 2023 Active 2023 26208 46436 0 Once daily By Mouth False Pregabalin 25 mg capsule [generic] 25 mg By Mouth 3 times a day For pain 25 mg 2023 Active 2023 32181 62590 9 3 times a day By Mouth False Tramadol 50 mg tablet [generic] 50 mg By Mouth Twice daily For pain 50 mg 2023 Active 2023 01677 26564 0 Twice daily By Mouth False Xanax 0.25 mg tablet 0.25 mg By Mouth Three times daily as needed For anxiety 0.25 mg 2023 Active 2023 40411 14838 1 Three times daily as needed By Mouth False Zyprexa 2.5 mg tablet 2.5 mg By Mouth At bedtime For major depressive disorder 2.5 mg 2023 Active 2023 92196 49569 0 At bedtime By Mouth False Tylenol Extra Strength 500 mg tablet 500 mg By Mouth 3 times a day For pain 500 mg 2023 Active 2023 48936 34330 6 3 times a day By Mouth False Senna 8.8 mg/5 mL oral syrup Twice daily administer senna 5mL For constipation 8.8 mg/5 mL 2023 Active 2023 43656 64331 8 Twice daily By Mouth False Dulcolax (bisacodyl) 10 mg rectal suppository 10 mg Rectal Daily as needed For constipation 10 mg 2023 Active 2023 61637 34554 1 Daily as needed Rectal False Citalopram 20 mg tablet [generic] 20 mg By Mouth Once daily For anxiety 20 mg 2023 Active 2023 25031 05176 1 Once daily By Mouth False Aspercreme (lidocaine HCl) 4 % topical 4 % Topical Three times daily as needed For pain to feet and legs 4 % 2023 Active 2023 07728 70645 0 Three times daily as needed Topica l False Haloperidol lactate 2 mg/mL oral concentrate [generic] 0.5ml By Mouth Every 4 hours as needed For agitation 0.5ml 2023 Active 2023 03057 77033 4 Every 4 hours as needed By Mouth False Haloperidol lactate 2 mg/mL oral concentrate [generic] 0.25ml By Mouth Every 4 days as needed For nausea/vomiti ng 0.25ml 2023 Active 2023 85850 08697 4 Every 4 days as needed By Mouth False Ipratropium 0.5 mg-albutero l 3 mg (2.5 mg base)/3 mL nebulizatio n soln [generic] 3ml Inhalation Every 6 hours as needed via nebulization route For shortness of breath 3ml 2023 Active 2023 27855 27987 3 Every 6 hours as needed Inhala tion False Lactulose 10 gram/15 mL (15 mL) oral solution [generic] 10 gram/15 m By Mouth Once daily For constipation 10 gram/15 m 2023 Active 2023 25524 58353 0 Once daily By Mouth False Morphine concentrate 100 mg/5 mL (20 mg/mL) oral solution [generic] 0.25ml (5mg) By Mouth Every 2 hours as needed For shortness of breath or pain 0.25ml (5mg) 2023 Active 2023 21980 19907 1 Every 2 hours as needed By Mouth False Pantoprazol e 40 mg tablet,fern yed release [generic] 40 mg By Mouth Once daily For GERD 40 mg 2023 Active 2023 42590 68903 0 Once daily By Mouth False Pregabalin 25 mg capsule [generic] 25 mg By Mouth 3 times a day For pain 25 mg 2023 Active 2023 75528 51264 9 3 times a day By Mouth False Tramadol 50 mg tablet [generic] 50 mg By Mouth Twice daily For pain 50 mg 2023 Active 2023 76865 96223 0 Twice daily By Mouth False Xanax 0.25 mg tablet 0.25 mg By Mouth Three times daily as needed For anxiety 0.25 mg 2023 Active 2023 64178 14400 1 Three times daily as needed By Mouth False Zyprexa 2.5 mg tablet 2.5 mg By Mouth At bedtime For major depressive disorder 2.5 mg 2023 Active 2023 34164 77532 0 At bedtime By Mouth False Tylenol Extra Strength 500 mg tablet 500 mg By Mouth 3 times a day For pain 500 mg 2023 Active 2023 34158 38650 6 3 times a day By Mouth False Senna 8.8 mg/5 mL oral syrup Twice daily administer senna 5mL For constipation 8.8 mg/5 mL 2023 Active 2023 67457 98987 8 Twice daily By Mouth False Dulcolax (bisacodyl) 10 mg rectal suppository 10 mg Rectal Daily as needed For constipation 10 mg 2023 Active 2023 57575 70149 1 Daily as needed Rectal False Citalopram 20 mg tablet [generic] 20 mg By Mouth Once daily For anxiety 20 mg 2023 Active 2023 46523 13090 1 Once daily By Mouth False Aspercreme (lidocaine HCl) 4 % topical 4 % Topical Three times daily as needed For pain to feet and legs 4 % 2023 Active 2023 52970 39864 0 Three times daily as needed Topica l False Haloperidol lactate 2 mg/mL oral concentrate [generic] 0.5ml By Mouth Every 4 hours as needed For agitation 0.5ml 2023 Active 2023 88614 88658 4 Every 4 hours as needed By Mouth False Haloperidol lactate 2 mg/mL oral concentrate [generic] 0.25ml By Mouth Every 4 days as needed For nausea/vomiti ng 0.25ml 2023 Active 2023 53648 11094 4 Every 4 days as needed By Mouth False Ipratropium 0.5 mg-albutero l 3 mg (2.5 mg base)/3 mL nebulizatio n soln [generic] 3ml Inhalation Every 6 hours as needed via nebulization route For shortness of breath 3ml 2023 Active 2023 13103 29687 3 Every 6 hours as needed Inhala tion False Morphine concentrate 100 mg/5 mL (20 mg/mL) oral solution [generic] 0.25ml (5mg) By Mouth Every 2 hours as needed For shortness of breath or pain 0.25ml (5mg) 2023 Active 2023 62702 70254 1 Every 2 hours as needed By Mouth False Pregabalin 75 mg capsule [generic] 75 mg By Mouth 3 times a day For pain 75 mg 2023 Active 2023 31274 64547 9 3 times a day By Mouth False Senna 8.8 mg/5 mL oral syrup 5ml By Mouth Twice daily as needed For constipation 5ml 2023 Active 2023 09968 88608 8 Twice daily as needed By Mouth False Tramadol 50 mg tablet [generic] 50 mg By Mouth Twice daily For pain 50 mg 2023 Active 2023 08036 54953 0 Twice daily By Mouth False Zyprexa 2.5 mg tablet 2.5 mg By Mouth At bedtime For major depressive disorder 2.5 mg 2023 Active 2023 30492 57677 0 At bedtime By Mouth False Tylenol Extra Strength 500 mg tablet 500 mg By Mouth 3 times a day For pain 500 mg 2023 Active 2023 67230 90109 6 3 times a day By Mouth False Trazodone 50 mg tablet [generic] ONE HALF TAB 25mg By Mouth At bedtime For sleep 25mg 2023 Active 2023 46704 60188 1 At bedtime By Mouth False Klonopin 0.5 mg tablet 0.5mg By Mouth At bedtime For sleep 0.5mg 2023 Active 2023 97356 2 At bedtime By Mouth False VITAL SIGNS Date Time Diastolic blood pressure Systolic blood pressure Body height Body weight Temperature SpO2 Blood Sugar Pulse Respirations 30712 101 92945 8 55.00 mm[Hg] - Lying Down 154.00 mm[Hg] - Lying Down 154.00 NI 98.10 Forehead Scan 94.00 % 76.00/ min 18.00/min 101 39251 2 64 NI Immunizations Vaccine Date Status COVID-19 05/25/2020 Completed COVID-19 06/15/2020 Completed Influenza 05/12/2023 Completed (PCV20)Pneumococcal 05/12/2023 Completed
--- OUTSIDE RECORDS SUMMARY | 2024-04-08 21:57 | External Medical Summary | Summary of Care ---
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 Name Role Phone Anel Lolis Garzon DO Primary Care Provider [phone] Reason for Visit * Reason Onset Date Comments Advice 09/15/2023 Encounter Details Date Type Department Care Team (Late st Contact Info) Description 09/15/2023 Telephone Access Center, [place] [address] [facility] *DO NOT REMOVE THIS DEPARTMENT* [place] [address] Services, Scheduling [address] [place] [address] Advice Allergies Active Allergy Reactions Criticality Noted Date [...] as of this encounter (statuses as of 12/15/2023) Medications Medication Sig Dispensed Refills Start Date End Date Status acetaminophen (TYLENOL) 325 MG Tablet Take 325 [...] by mouth 2 times a day. Active dextromethorphan-jamar nidine (NUEDEXTA) 20-10 MG CAPS Take by mouth [...] and Wednesday only . 42.5 g 12 12/23/2021 Active Albuterol Sulfate (2.5 MG/3ML) 0.083% Inhalation Nebulization Solution (Proventil) Inhale via nebulizer 1 Vial every 4 hours as needed for Wheezing or Shortness of Breath. 360 mL 11 02/24/2022 Active Baclofen 10 MG Oral Tablet (Lioresal) Take by mouth 1 Tablet in the morning. Do not start before February 25, 2022. 30 Tablet 3 02/25/2022 Active Additional Information Patient not taking.Reported on 09/28/2023 Docusate Sodium 100 MG Oral Capsule (Colace) Take by mouth 1 Capsule in the morning AND 1 Capsule before bedtime. 10 Capsule 02/24/2022 Active Lisinopril 2.5 MG Oral Tablet (Prinivil) Take by mouth 1 Tablet in the morning. Do not start before February 25, 2022. 30 Tablet 3 02/25/2022 Active Magnesium Chloride 64 MG Oral Tablet Delayed Release (Mag-64) Take by mouth 2 Tablets in the morning. Do not start before February 25, 2022. 30 Tablet 3 02/25/2022 Active Nystatin 299645 UNIT/GM External Powder (Nystop) Apply topically to affected area 2 times a day . Apply to excoriated area 15 g 02/24/2022 Active Ondansetron 4 MG Oral Tablet Disintegrating (Zofran) Place on tongue 1 Tablet every 8 hours as needed for Nausea (when no iv). dissolve on tongue. 20 Tablet 02/24/2022 Active Simvastatin 20 MG Oral Tablet (Zocor) Take by mouth 1 Tablet in the evening. 30 Tablet 3 02/24/2022 Active Additional Information Patient not taking.Reported on 09/28/2023 Trolamine Salicylate 10 % External Cream (Aspercreme Original) Apply to feet and toes one to two times daily 170 g 3 02/24/2022 Active Famotidine 20 MG Oral Tablet (Pepcid) Take by mouth 1 Tablet in the morning. 30 Tablet 3 02/24/2022 Active Additional Information Patient not taking.Reported on 09/28/2023 Gabapentin 300 MG Oral Capsule (Neurontin)Indicatio ns:Peripheral polyneuropathy Take by mouth 1 Capsule in the morning AND 1 Capsule at noon AND 1 Capsule before bedtime. 90 Capsule 5 02/24/2022 Active Acetaminophen 325 MG Oral Tablet (Tylenol) Take by mouth 3 Tablets every 6 hours as needed for Pain, Mild or Pain, Moderate. 30 Tablet 02/24/2022 Active QUEtiapine Fumarate 25 MG Oral Tablet (SEROquel) Take by mouth 0.5 Tablets before bedtime. 30 Tablet 3 02/24/2022 Active Polyethylene Glycol 3350 17 GM Oral Packet (Miralax) Take by mouth 1 Packet in the morning AND 1 Packet before bedtime. 14 Each 02/24/2022 Active traMADol HCl 50 MG Oral Tablet (Ultram) Take by mouth 0.5 Tablets every 6 hours as needed for Pain, Moderate or Pain, Severe. 20 Tablet 02/24/2022 Active documented as of this encounter (statuses as of 12/15/2023) Active Problems Problem Noted Date Diagnosed Date [...] as of this encounter (statuses as of 12/15/2023) Social History Tobacco Use Types Packs/Day Years [...] years and over) Not on file 11/02/2023 Sex and Gender Information Value Date Recorded Sex Assigned at Not on file Gender Identity Not on file Sexual Orientation Not on file Job Start Date Occupation Industry Not on file Not on file Not on file documented as of this encounter Functional Status Functional Status Response Date of Assess ment Are you deaf or do you have serious difficulty h earing? No 01/08/2022 Are you blind or do you have serious difficulty seeing, even when wearing glasses? No 01/08/2022 Do you have serious difficul ty walking or climbing stairs? (5 years old or older) Yes 01/08/2022 Do you have difficulty dress ing or bathing? (5 years old or older) Yes 01/08/2022 Because of a physical, menta l, or emotional condition, do you have difficulty doing errands alone such as visiting a doctor s office or shopping? (15 years old or older) No 01/09/20 22 Cognitive Status Response Date of Assessm ent Because of a physical, menta l, or emotional condition, do you have serious difficulty concentrating, remembering, or making decisions? (5 years old or older) No 01/08/2022 documented as of this encounter Miscellaneous Notes * Telephone Encounter - Rhiannon Acosta OSA - 09/15/2023 4:37 PM EDT Med records requested from [facility]. * Telephone Encounter - Tanja Tsai LPN - 09/15/2023 4:32 PM EDT Pt has upcoming appointment 09/26, does not appear we have records, please assist with requesting records * Telephone Encounter - Sejal Samson OSA - 09/15/2023 4:23 PM EDT Pt granddaughter Ailyn is requesting a return call from provider to discuss something that a doctorstated while pt was in the [facility]. ([facility]) There was a doctor there that mentioned that she might have lukemia but nothing was mentioned to the pt. and would like to know if this is fact. She stated that she did not have any discharge papers avail to look at that her mother had them. Upon review it does not look as if daughter, Anita has brought any copies of POA documents into office. documented in this encounter Plan of Treatment Scheduled Procedures Name Priority Associated Diagnoses Date/Ti me ENDOSCOPIC RETROGRADE CHOLANGIOPANCREATOGRAPHY (ERCP) DIAGNOSTIC Recall Choledocholithiasis Health Maintenance Due Date Last Done Comments DXA Scan 1942 Depression Screening 1954 Albumin/Creatinine Ratio 1960 Alpha-1 Antitrypsin 1960 O2 ASSESSMENT COMPLETED IN PAST YEAR FOR COPD 1960 DTaP,Tdap,and Td Vaccines (1 - Tdap) 1961 Zoster Vaccines (1 of 2) 1992 *COPD SEVERITY VERIFIED BY PFT 08/02/2021 *SPIROMETRY ONCE FOR ASTHMA-ADULT 04/09/2022 COVID-19 Vaccine ( season) 2023 06/15/2020, 05/25/2020 Influenza Vaccine (FLU shot) (#1) [...] Advance Directives occurred with: Patient Care Teams Snack Bar Cashier Relationship Specialty Start Date End Date Lolis Tam DO [address] [facility] [address] [place] [address] PCP - General Family Medicine 08/13/21 documented as of this encounter
--- OUTSIDE RECORDS SUMMARY | 2024-04-08 21:57 | External Medical Summary | Continuity Of Care Document ---
Author Name Unknown Address [address] [address] Organization [facility] () Care Team Providers Care Manager Economic Name Role Phone DO Woody Amy Primary Care Provider [phone] Allergies Allergy Reaction Start Date End Date [...] Day 3 0.1 mL 03/21 Active 2023 71105 64958 0 1 time Intrad ermal False Tubersol 5 tub. unit/0.1 mL intradermal injection solution [Tuberculin PPD] 0.1mL Intradermal 1 time For PPD 2nd Step Give 2nd Step PPD Day 1 and Read results Day 3 (schedule 7 days after 1st READ) 0.1mL 03/31 Active 2023 62293 24792 0 1 time Intrad ermal False Aspercreme (lidocaine HCl) 4 % topical 4 % Topical Three times daily as needed For pain to feet and legs 4 % 11/08 Inactiv e 2023 40117 51399 0 Three times daily as needed Topica l False Citalopram 20 mg tablet [generic] 20 mg By Mouth Once daily For anxiety 20 mg 11/08 Inactiv e 2023 93826 66743 1 Once daily By Mouth False Dulcolax (bisacodyl) 10 mg rectal suppository 10 mg Rectal Daily as needed For constipation 10 mg 11/12 Inactiv e 2023 67667 12828 1 Daily as needed Rectal False Citalopram 20 mg tablet [generic] 20 mg By Mouth Once daily For anxiety 20 mg 11/12 Inactiv e 2023 86164 65738 1 Once daily By Mouth False Aspercreme (lidocaine HCl) 4 % topical 4 % Topical Three times daily as needed For pain to feet and legs 4 % 11/12 Inactiv e 2023 06260 78250 0 Three times daily as needed Topica l False Haloperidol lactate 2 mg/mL oral concentrate [generic] 0.5ml By Mouth Every 4 hours as needed For agitation 0.5ml 11/12 Inactiv e 2023 27201 59374 4 Every 4 hours as needed By Mouth False Haloperidol lactate 2 mg/mL oral concentrate [generic] 0.25ml By Mouth Every 4 days as needed For nausea/vomiti ng 0.25ml 11/12 Inactiv e 2023 97931 69931 4 Every 4 days as needed By Mouth False Ipratropium 0.5 mg-albutero l 3 mg (2.5 mg base)/3 mL nebulizatio n soln [generic] 3ml Inhalation Every 6 hours as needed via nebulization route For shortness of breath 3ml 11/12 Inactiv e 2023 42059 46225 3 Every 6 hours as needed Inhala tion False Lactulose 10 gram/15 mL (15 mL) oral solution [generic] 10 gram/15 m By Mouth Once daily For constipation 10 gram/15 m 11/12 Inactiv e 2023 30744 75239 0 Once daily By Mouth False Morphine concentrate 100 mg/5 mL (20 mg/mL) oral solution [generic] 0.25ml (5mg) By Mouth Every 2 hours as needed For shortness of breath or pain 0.25ml (5mg) 11/12 Inactiv e 2023 94853 29570 1 Every 2 hours as needed By Mouth False Pantoprazol e 40 mg tablet,fern yed release [generic] 40 mg By Mouth Once daily For GERD 40 mg 11/12 Inactiv e 2023 30678 31488 0 Once daily By Mouth False Pregabalin 25 mg capsule [generic] 25 mg By Mouth 3 times a day For pain 25 mg 11/12 Inactiv e 2023 55905 55722 9 3 times a day By Mouth False Senna 8.8 mg/5 mL oral syrup 5ml By Mouth Twice daily as needed For constipation 5ml 11/09 Inactiv e 2023 36625 04095 8 Twice daily as needed By Mouth False Tramadol 50 mg tablet [generic] 50 mg By Mouth Twice daily For pain 50 mg 11/12 Inactiv e 2023 54050 77069 0 Twice daily By Mouth False Tylenol Arthritis Pain 650 mg tablet,exte nded release 650 mg By Mouth 3 times a day For pain 650 mg 11/08 Inactiv e 2023 59878 16069 1 3 times a day By Mouth False Xanax 0.25 mg tablet 0.25 mg By Mouth Three times daily as needed For anxiety 0.25 mg 11/12 Inactiv e 2023 10925 76543 1 Three times daily as needed By Mouth False Zyprexa 2.5 mg tablet 2.5 mg By Mouth At bedtime For major depressive disorder 2.5 mg 11/12 Inactiv e 2023 35420 39850 0 At bedtime By Mouth False Tylenol 325 mg tablet 650 mg By Mouth 3 times a day For pain 650 mg 11/09 Inactiv e 2023 31866 02443 0 3 times a day By Mouth False Tylenol Extra Strength 500 mg tablet 500 mg By Mouth 3 times a day For pain 500 mg 11/12 Inactiv e 2023 52676 77363 6 3 times a day By Mouth False Senna 8.8 mg/5 mL oral syrup Twice daily administer senna 5mL For constipation 8.8 mg/5 mL 11/12 Inactiv e 2023 37580 74622 8 Twice daily By Mouth False Dulcolax (bisacodyl) 10 mg rectal suppository 10 mg Rectal Daily as needed For constipation 10 mg 2023 Active 2023 47532 21967 1 Daily as needed Rectal False Citalopram 20 mg tablet [generic] 20 mg By Mouth Once daily For anxiety 20 mg 2023 Active 2023 91853 21651 1 Once daily By Mouth False Aspercreme (lidocaine HCl) 4 % topical 4 % Topical Three times daily as needed For pain to feet and legs 4 % 2023 Active 2023 62387 65069 0 Three times daily as needed Topica l False Haloperidol lactate 2 mg/mL oral concentrate [generic] 0.5ml By Mouth Every 4 hours as needed For agitation 0.5ml 2023 Active 2023 55804 56090 4 Every 4 hours as needed By Mouth False Haloperidol lactate 2 mg/mL oral concentrate [generic] 0.25ml By Mouth Every 4 days as needed For nausea/vomiti ng 0.25ml 2023 Active 2023 97098 64051 4 Every 4 days as needed By Mouth False Ipratropium 0.5 mg-albutero l 3 mg (2.5 mg base)/3 mL nebulizatio n soln [generic] 3ml Inhalation Every 6 hours as needed via nebulization route For shortness of breath 3ml 2023 Active 2023 96328 05901 3 Every 6 hours as needed Inhala tion False Lactulose 10 gram/15 mL (15 mL) oral solution [generic] 10 gram/15 m By Mouth Once daily For constipation 10 gram/15 m 2023 Active 2023 95493 72341 0 Once daily By Mouth False Morphine concentrate 100 mg/5 mL (20 mg/mL) oral solution [generic] 0.25ml (5mg) By Mouth Every 2 hours as needed For shortness of breath or pain 0.25ml (5mg) 2023 Active 2023 86316 54785 1 Every 2 hours as needed By Mouth False Pantoprazol e 40 mg tablet,fern yed release [generic] 40 mg By Mouth Once daily For GERD 40 mg 2023 Active 2023 35608 59806 0 Once daily By Mouth False Pregabalin 25 mg capsule [generic] 25 mg By Mouth 3 times a day For pain 25 mg 2023 Active 2023 63304 88584 9 3 times a day By Mouth False Tramadol 50 mg tablet [generic] 50 mg By Mouth Twice daily For pain 50 mg 2023 Active 2023 97158 08140 0 Twice daily By Mouth False Xanax 0.25 mg tablet 0.25 mg By Mouth Three times daily as needed For anxiety 0.25 mg 2023 Active 2023 95815 54094 1 Three times daily as needed By Mouth False Zyprexa 2.5 mg tablet 2.5 mg By Mouth At bedtime For major depressive disorder 2.5 mg 2023 Active 2023 28695 16083 0 At bedtime By Mouth False Tylenol Extra Strength 500 mg tablet 500 mg By Mouth 3 times a day For pain 500 mg 2023 Active 2023 10284 66589 6 3 times a day By Mouth False Senna 8.8 mg/5 mL oral syrup Twice daily administer senna 5mL For constipation 8.8 mg/5 mL 2023 Active 2023 83500 97616 8 Twice daily By Mouth False Dulcolax (bisacodyl) 10 mg rectal suppository 10 mg Rectal Daily as needed For constipation 10 mg 2023 Active 2023 05960 02651 1 Daily as needed Rectal False Citalopram 20 mg tablet [generic] 20 mg By Mouth Once daily For anxiety 20 mg 2023 Active 2023 63091 76130 1 Once daily By Mouth False Aspercreme (lidocaine HCl) 4 % topical 4 % Topical Three times daily as needed For pain to feet and legs 4 % 2023 Active 2023 53149 92405 0 Three times daily as needed Topica l False Haloperidol lactate 2 mg/mL oral concentrate [generic] 0.5ml By Mouth Every 4 hours as needed For agitation 0.5ml 2023 Active 2023 40655 39239 4 Every 4 hours as needed By Mouth False Haloperidol lactate 2 mg/mL oral concentrate [generic] 0.25ml By Mouth Every 4 days as needed For nausea/vomiti ng 0.25ml 2023 Active 202321 66966 4 Every 4 days as needed By Mouth False Ipratropium 0.5 mg-albutero l 3 mg (2.5 mg base)/3 mL nebulizatio n soln [generic] 3ml Inhalation Every 6 hours as needed via nebulization route For shortness of breath 3ml 2023 Active 2023 24428 00373 3 Every 6 hours as needed Inhala tion False Lactulose 10 gram/15 mL (15 mL) oral solution [generic] 10 gram/15 m By Mouth Once daily For constipation 10 gram/15 m 2023 Active 2023 30248 11571 0 Once daily By Mouth False Morphine concentrate 100 mg/5 mL (20 mg/mL) oral solution [generic] 0.25ml (5mg) By Mouth Every 2 hours as needed For shortness of breath or pain 0.25ml (5mg) 2023 Active 2023 30212 01128 1 Every 2 hours as needed By Mouth False Pantoprazol e 40 mg tablet,fern yed release [generic] 40 mg By Mouth Once daily For GERD 40 mg 2023 Active 2023 56276 95559 0 Once daily By Mouth False Pregabalin 25 mg capsule [generic] 25 mg By Mouth 3 times a day For pain 25 mg 2023 Active 2023 72215 66331 9 3 times a day By Mouth False Tramadol 50 mg tablet [generic] 50 mg By Mouth Twice daily For pain 50 mg 2023 Active 2023 34264 08632 0 Twice daily By Mouth False Xanax 0.25 mg tablet 0.25 mg By Mouth Three times daily as needed For anxiety 0.25 mg 2023 Active 2023 46461 87065 1 Three times daily as needed By Mouth False Zyprexa 2.5 mg tablet 2.5 mg By Mouth At bedtime For major depressive disorder 2.5 mg 2023 Active 2023 99677 87777 0 At bedtime By Mouth False Tylenol Extra Strength 500 mg tablet 500 mg By Mouth 3 times a day For pain 500 mg 2023 Active 2023 93257 59715 6 3 times a day By Mouth False Senna 8.8 mg/5 mL oral syrup Twice daily administer senna 5mL For constipation 8.8 mg/5 mL 2023 Active 2023 55788 70059 8 Twice daily By Mouth False Dulcolax (bisacodyl) 10 mg rectal suppository 10 mg Rectal Daily as needed For constipation 10 mg 2023 Active 2023 29373 63439 1 Daily as needed Rectal False Citalopram 20 mg tablet [generic] 20 mg By Mouth Once daily For anxiety 20 mg 2023 Active 2023 86640 26837 1 Once daily By Mouth False Aspercreme (lidocaine HCl) 4 % topical 4 % Topical Three times daily as needed For pain to feet and legs 4 % 2023 Active 2023 93949 21243 0 Three times daily as needed Topica l False Haloperidol lactate 2 mg/mL oral concentrate [generic] 0.5ml By Mouth Every 4 hours as needed For agitation 0.5ml 2023 Active 2023 33551 15032 4 Every 4 hours as needed By Mouth False Haloperidol lactate 2 mg/mL oral concentrate [generic] 0.25ml By Mouth Every 4 days as needed For nausea/vomiti ng 0.25ml 2023 Active 2023 14294 14693 4 Every 4 days as needed By Mouth False Ipratropium 0.5 mg-albutero l 3 mg (2.5 mg base)/3 mL nebulizatio n soln [generic] 3ml Inhalation Every 6 hours as needed via nebulization route For shortness of breath 3ml 2023 Active 2023 03737 58448 3 Every 6 hours as needed Inhala tion False Morphine concentrate 100 mg/5 mL (20 mg/mL) oral solution [generic] 0.25ml (5mg) By Mouth Every 2 hours as needed For shortness of breath or pain 0.25ml (5mg) 2023 Active 2023 85442 65039 1 Every 2 hours as needed By Mouth False Pregabalin 75 mg capsule [generic] 75 mg By Mouth 3 times a day For pain 75 mg 2023 Active 2023 75913 09485 9 3 times a day By Mouth False Senna 8.8 mg/5 mL oral syrup 5ml By Mouth Twice daily as needed For constipation 5ml 2023 Active 2023 33946 42640 8 Twice daily as needed By Mouth False Tramadol 50 mg tablet [generic] 50 mg By Mouth Twice daily For pain 50 mg 2023 Active 2023 63258 34501 0 Twice daily By Mouth False Zyprexa 2.5 mg tablet 2.5 mg By Mouth At bedtime For major depressive disorder 2.5 mg 2023 Active 2023 13725 21528 0 At bedtime By Mouth False Tylenol Extra Strength 500 mg tablet 500 mg By Mouth 3 times a day For pain 500 mg 2023 Active 2023 75295 40631 6 3 times a day By Mouth False Trazodone 50 mg tablet [generic] ONE HALF TAB 25mg By Mouth At bedtime For sleep 25mg 2023 Active 2023 58208 60247 1 At bedtime By Mouth False Klonopin 0.5 mg tablet 0.5mg By Mouth At bedtime For sleep 0.5mg 2023 Active 2023 74132 21642 2 At bedtime By Mouth False VITAL SIGNS Date Time Diastolic blood pressure Systolic blood pressure Body height Body weight Temperature SpO2 Blood Sugar Pulse Respirations 101 38431 8 55.00 mm[Hg] - Lying Down 154.00 mm[Hg] - Lying Down 154.00 NI 98.10 Forehead Scan 94.00 % 76.00/ min 18.00/min 101 99538 2 64 NI Immunizations Vaccine Date Status COVID-19 05/25/2020 Completed COVID-19 06/15/2020 Completed Influenza 05/12/2023 Completed (PCV20)Pneumococcal 05/12/2023 Completed
--- OUTSIDE RECORDS SUMMARY | 2024-04-08 21:57 | External Medical Summary | Continuity Of Care Document ---
Author Name Unknown Address [address] [address] Organization [facility] () Care Team Providers Care Ultra Sound Technician Name Role Phone DO Woody Amy Primary Care Provider [phone] Allergies Allergy Reaction Start Date End Date Status LORAZEPAM Active PENICILLINS Hives, Rash Active Medications Medication Instructions Dosage Start Date End Date Status Order Date Drug Code Frequency Route of Admin Diagnosis Code Substitutions Allowed Aspercreme (lidocaine HCl) 4 % topical 4 % Topical Three times daily as needed For pain to feet and legs 4 % 11/08 Inactiv e 2023 02657 31509 0 Three times daily as needed Topica l False Citalopram 20 mg tablet [generic] 20 mg By Mouth Once daily For anxiety 20 mg 11/08 Inactiv e 2023 33201 78017 1 Once daily By Mouth False Dulcolax (bisacodyl) 10 mg rectal suppository 10 mg Rectal Daily as needed For constipation 10 mg 11/12 Inactiv e 2023 41781 31015 1 Daily as needed Rectal False Citalopram 20 mg tablet [generic] 20 mg By Mouth Once daily For anxiety 20 mg 11/12 Inactiv e 2023 22116 53879 1 Once daily By Mouth False Aspercreme (lidocaine HCl) 4 % topical 4 % Topical Three times daily as needed For pain to feet and legs 4 % 11/12 Inactiv e 2023 91191 72647 0 Three times daily as needed Topica l False Haloperidol lactate 2 mg/mL oral concentrate [generic] 0.5ml By Mouth Every 4 hours as needed For agitation 0.5ml 11/12 Inactiv e 2023 62406 94544 4 Every 4 hours as needed By Mouth False Haloperidol lactate 2 mg/mL oral concentrate [generic] 0.25ml By Mouth Every 4 days as needed For nausea/vomiti ng 0.25ml 11/12 Inactiv e 2023 20953 41548 4 Every 4 days as needed By Mouth False Ipratropium 0.5 mg-albutero l 3 mg (2.5 mg base)/3 mL nebulizatio n soln [generic] 3ml Inhalation Every 6 hours as needed via nebulization route For shortness of breath 3ml 11/12 Inactiv e 2023 87803 38356 3 Every 6 hours as needed Inhala tion False Lactulose 10 gram/15 mL (15 mL) oral solution [generic] 10 gram/15 m By Mouth Once daily For constipation 10 gram/15 m 11/12 Inactiv e 2023 36279 65038 0 Once daily By Mouth False Morphine concentrate 100 mg/5 mL (20 mg/mL) oral solution [generic] 0.25ml (5mg) By Mouth Every 2 hours as needed For shortness of breath or pain 0.25ml (5mg) 11/12 Inactiv e 2023 05087 72147 1 Every 2 hours as needed By Mouth False Pantoprazol e 40 mg tablet,fern yed release [generic] 40 mg By Mouth Once daily For GERD 40 mg 11/12 Inactiv e 2023 33381 22662 0 Once daily By Mouth False Pregabalin 25 mg capsule [generic] 25 mg By Mouth 3 times a day For pain 25 mg 11/12 Inactiv e 2023 35932 32952 9 3 times a day By Mouth False Senna 8.8 mg/5 mL oral syrup 5ml By Mouth Twice daily as needed For constipation 5ml 11/09 Inactiv e 2023 51622 74700 8 Twice daily as needed By Mouth False Tramadol 50 mg tablet [generic] 50 mg By Mouth Twice daily For pain 50 mg 11/12 Inactiv e 2023 22016 68367 0 Twice daily By Mouth False Tylenol Arthritis Pain 650 mg tablet,exte nded release 650 mg By Mouth 3 times a day For pain 650 mg 11/08 Inactiv e 2023 97217 11272 1 3 times a day By Mouth False Xanax 0.25 mg tablet 0.25 mg By Mouth Three times daily as needed For anxiety 0.25 mg 11/12 Inactiv e 2023 96174 46871 1 Three times daily as needed By Mouth False Zyprexa 2.5 mg tablet 2.5 mg By Mouth At bedtime For major depressive disorder 2.5 mg 11/12 Inactiv e 2023 64530 73494 0 At bedtime By Mouth False Tylenol 325 mg tablet 650 mg By Mouth 3 times a day For pain 650 mg 11/09 Inactiv e 2023 34986 80403 0 3 times a day By Mouth False Tylenol Extra Strength 500 mg tablet 500 mg By Mouth 3 times a day For pain 500 mg 11/12 Inactiv e 2023 64107 16817 6 3 times a day By Mouth False Senna 8.8 mg/5 mL oral syrup Twice daily administer senna 5mL For constipation 8.8 mg/5 mL 11/12 Inactiv e 2023 32272 28752 8 Twice daily By Mouth False Dulcolax (bisacodyl) 10 mg rectal suppository 10 mg Rectal Daily as needed For constipation 10 mg 2023 Active 2023 19410 52137 1 Daily as needed Rectal False Citalopram 20 mg tablet [generic] 20 mg By Mouth Once daily For anxiety 20 mg 2023 Active 2023 01731 46825 1 Once daily By Mouth False Aspercreme (lidocaine HCl) 4 % topical 4 % Topical Three times daily as needed For pain to feet and legs 4 % 2023 Active 2023 63521 46738 0 Three times daily as needed Topica l False Haloperidol lactate 2 mg/mL oral concentrate [generic] 0.5ml By Mouth Every 4 hours as needed For agitation 0.5ml 2023 Active 2023 64421 16499 4 Every 4 hours as needed By Mouth False Haloperidol lactate 2 mg/mL oral concentrate [generic] 0.25ml By Mouth Every 4 days as needed For nausea/vomiti ng 0.25ml 2023 Active 2023 24526 71363 4 Every 4 days as needed By Mouth False Ipratropium 0.5 mg-albutero l 3 mg (2.5 mg base)/3 mL nebulizatio n soln [generic] 3ml Inhalation Every 6 hours as needed via nebulization route For shortness of breath 3ml 2023 Active 2023 51636 78231 3 Every 6 hours as needed Inhala tion False Lactulose 10 gram/15 mL (15 mL) oral solution [generic] 10 gram/15 m By Mouth Once daily For constipation 10 gram/15 m 2023 Active 2023 64298 68152 0 Once daily By Mouth False Morphine concentrate 100 mg/5 mL (20 mg/mL) oral solution [generic] 0.25ml (5mg) By Mouth Every 2 hours as needed For shortness of breath or pain 0.25ml (5mg) 2023 Active 2023 83868 14080 1 Every 2 hours as needed By Mouth False Pantoprazol e 40 mg tablet,fern yed release [generic] 40 mg By Mouth Once daily For GERD 40 mg 2023 Active 2023 40928 74181 0 Once daily By Mouth False Pregabalin 25 mg capsule [generic] 25 mg By Mouth 3 times a day For pain 25 mg 2023 Active 2023 14004 90372 9 3 times a day By Mouth False Tramadol 50 mg tablet [generic] 50 mg By Mouth Twice daily For pain 50 mg 2023 Active 2023 90316 85427 0 Twice daily By Mouth False Xanax 0.25 mg tablet 0.25 mg By Mouth Three times daily as needed For anxiety 0.25 mg 2023 Active 2023 48546 90708 1 Three times daily as needed By Mouth False Zyprexa 2.5 mg tablet 2.5 mg By Mouth At bedtime For major depressive disorder 2.5 mg 2023 Active 2023 68572 81747 0 At bedtime By Mouth False Tylenol Extra Strength 500 mg tablet 500 mg By Mouth 3 times a day For pain 500 mg 2023 Active 2023 84059 65544 6 3 times a day By Mouth False Senna 8.8 mg/5 mL oral syrup Twice daily administer senna 5mL For constipation 8.8 mg/5 mL 2023 Active 2023 77316 28099 8 Twice daily By Mouth False Dulcolax (bisacodyl) 10 mg rectal suppository 10 mg Rectal Daily as needed For constipation 10 mg 2023 Active 2023 62735 34558 1 Daily as needed Rectal False Citalopram 20 mg tablet [generic] 20 mg By Mouth Once daily For anxiety 20 mg 2023 Active 2023 54720 46556 1 Once daily By Mouth False Aspercreme (lidocaine HCl) 4 % topical 4 % Topical Three times daily as needed For pain to feet and legs 4 % 2023 Active 2023 08054 02363 0 Three times daily as needed Topica l False Haloperidol lactate 2 mg/mL oral concentrate [generic] 0.5ml By Mouth Every 4 hours as needed For agitation 0.5ml 2023 Active 2023 56076 75915 4 Every 4 hours as needed By Mouth False Haloperidol lactate 2 mg/mL oral concentrate [generic] 0.25ml By Mouth Every 4 days as needed For nausea/vomiti ng 0.25ml 2023 Active 2023 99031 42520 4 Every 4 days as needed By Mouth False Ipratropium 0.5 mg-albutero l 3 mg (2.5 mg base)/3 mL nebulizatio n soln [generic] 3ml Inhalation Every 6 hours as needed via nebulization route For shortness of breath 3ml 2023 Active 2023 19022 32136 3 Every 6 hours as needed Inhala tion False Lactulose 10 gram/15 mL (15 mL) oral solution [generic] 10 gram/15 m By Mouth Once daily For constipation 10 gram/15 m 2023 Active 2023 54683 83064 0 Once daily By Mouth False Morphine concentrate 100 mg/5 mL (20 mg/mL) oral solution [generic] 0.25ml (5mg) By Mouth Every 2 hours as needed For shortness of breath or pain 0.25ml (5mg) 2023 Active 2023 69094 97004 1 Every 2 hours as needed By Mouth False Pantoprazol e 40 mg tablet,fern yed release [generic] 40 mg By Mouth Once daily For GERD 40 mg 2023 Active 2023 73917 10891 0 Once daily By Mouth False Pregabalin 25 mg capsule [generic] 25 mg By Mouth 3 times a day For pain 25 mg 2023 Active 2023 31101 34968 9 3 times a day By Mouth False Tramadol 50 mg tablet [generic] 50 mg By Mouth Twice daily For pain 50 mg 2023 Active 2023 60719 97718 0 Twice daily By Mouth False Xanax 0.25 mg tablet 0.25 mg By Mouth Three times daily as needed For anxiety 0.25 mg 2023 Active 2023 38542 28245 1 Three times daily as needed By Mouth False Zyprexa 2.5 mg tablet 2.5 mg By Mouth At bedtime For major depressive disorder 2.5 mg 2023 Active 2023 27358 39919 0 At bedtime By Mouth False Tylenol Extra Strength 500 mg tablet 500 mg By Mouth 3 times a day For pain 500 mg 2023 Active 2023 65690 71559 6 3 times a day By Mouth False Senna 8.8 mg/5 mL oral syrup Twice daily administer senna 5mL For constipation 8.8 mg/5 mL 2023 Active 2023 81174 96104 8 Twice daily By Mouth False Dulcolax (bisacodyl) 10 mg rectal suppository 10 mg Rectal Daily as needed For constipation 10 mg 2023 Active 2023 78841 79092 1 Daily as needed Rectal False Citalopram 20 mg tablet [generic] 20 mg By Mouth Once daily For anxiety 20 mg 2023 Active 2023 17393 74931 1 Once daily By Mouth False Aspercreme (lidocaine HCl) 4 % topical 4 % Topical Three times daily as needed For pain to feet and legs 4 % 2023 Active 2023 89282 26210 0 Three times daily as needed Topica l False Haloperidol lactate 2 mg/mL oral concentrate [generic] 0.5ml By Mouth Every 4 hours as needed For agitation 0.5ml 2023 Active 2023 03632 50186 4 Every 4 hours as needed By Mouth False Haloperidol lactate 2 mg/mL oral concentrate [generic] 0.25ml By Mouth Every 4 days as needed For nausea/vomiti ng 0.25ml 2023 Active 2023 39116 98194 4 Every 4 days as needed By Mouth False Ipratropium 0.5 mg-albutero l 3 mg (2.5 mg base)/3 mL nebulizatio n soln [generic] 3ml Inhalation Every 6 hours as needed via nebulization route For shortness of breath 3ml 2023 Active 2023 52475 50930 3 Every 6 hours as needed Inhala tion False Morphine concentrate 100 mg/5 mL (20 mg/mL) oral solution [generic] 0.25ml (5mg) By Mouth Every 2 hours as needed For shortness of breath or pain 0.25ml (5mg) 2023 Active 2023 28437 19408 1 Every 2 hours as needed By Mouth False Pregabalin 75 mg capsule [generic] 75 mg By Mouth 3 times a day For pain 75 mg 2023 Active 2023 39138 49289 9 3 times a day By Mouth False Senna 8.8 mg/5 mL oral syrup 5ml By Mouth Twice daily as needed For constipation 5ml 2023 Active 2023 19556 26769 8 Twice daily as needed By Mouth False Tramadol 50 mg tablet [generic] 50 mg By Mouth Twice daily For pain 50 mg 2023 Active 2023 73700 52929 0 Twice daily By Mouth False Zyprexa 2.5 mg tablet 2.5 mg By Mouth At bedtime For major depressive disorder 2.5 mg 2023 Active 2023 50707 54457 0 At bedtime By Mouth False Tylenol Extra Strength 500 mg tablet 500 mg By Mouth 3 times a day For pain 500 mg 2023 Active 2023 83100 90025 6 3 times a day By Mouth False Trazodone 50 mg tablet [generic] ONE HALF TAB 25mg By Mouth At bedtime For sleep 25mg 2023 Active 2023 26286 87220 1 At bedtime By Mouth False VITAL SIGNS Date Time Diastolic blood pressure Systolic blood pressure Body height Body weight Temperature SpO2 Blood Sugar Pulse Respirations 101 20332 8 55.00 mm[Hg] - Lying Down 154.00 mm[Hg] - Lying Down 154.00 NI 98.10 Forehead Scan 94.00 % 76.00/ min 18.00/min 63083 101 77487 2 64 NI Immunizations Vaccine Date Status COVID-19 05/25/2020 Completed COVID-19 06/15/2020 Completed Influenza 05/12/2023 Completed (PCV20)Pneumococcal 05/12/2023 Completed
--- OUTSIDE RECORDS SUMMARY | 2024-04-08 21:57 | External Medical Summary | Continuity Of Care Document ---
Author Name Unknown Address [address] [address] Organization [facility] () Care Team Providers Care Technical Aide Name Role Phone DO Woody Amy Primary Care Provider [phone] Allergies Allergy Reaction Start Date End Date Status LORAZEPAM Active PENICILLINS Hives, Rash Active Medications Medication Instructions Dosage Start Date End Date Status Order Date Drug Code Frequency Route of Admin Diagnosis Code Substitutions Allowed Aspercreme (lidocaine HCl) 4 % topical 4 % Topical Three times daily as needed For pain to feet and legs 4 % 11/08 Inactiv e 2023 13172 24835 0 Three times daily as needed Topica l False Citalopram 20 mg tablet [generic] 20 mg By Mouth Once daily For anxiety 20 mg 11/08 Inactiv e 2023 54423 58946 1 Once daily By Mouth False Dulcolax (bisacodyl) 10 mg rectal suppository 10 mg Rectal Daily as needed For constipation 10 mg 11/12 Inactiv e 2023 73980 90347 1 Daily as needed Rectal False Citalopram 20 mg tablet [generic] 20 mg By Mouth Once daily For anxiety 20 mg 11/12 Inactiv e 2023 35258 06086 1 Once daily By Mouth False Aspercreme (lidocaine HCl) 4 % topical 4 % Topical Three times daily as needed For pain to feet and legs 4 % 11/12 Inactiv e 2023 16848 17150 0 Three times daily as needed Topica l False Haloperidol lactate 2 mg/mL oral concentrate [generic] 0.5ml By Mouth Every 4 hours as needed For agitation 0.5ml 11/12 Inactiv e 2023 65589 39670 4 Every 4 hours as needed By Mouth False Haloperidol lactate 2 mg/mL oral concentrate [generic] 0.25ml By Mouth Every 4 days as needed For nausea/vomiti ng 0.25ml 11/12 Inactiv e 2023 99546 29805 4 Every 4 days as needed By Mouth False Ipratropium 0.5 mg-albutero l 3 mg (2.5 mg base)/3 mL nebulizatio n soln [generic] 3ml Inhalation Every 6 hours as needed via nebulization route For shortness of breath 3ml 11/12 Inactiv e 2023 43101 46407 3 Every 6 hours as needed Inhala tion False Lactulose 10 gram/15 mL (15 mL) oral solution [generic] 10 gram/15 m By Mouth Once daily For constipation 10 gram/15 m 11/12 Inactiv e 2023 29241 01773 0 Once daily By Mouth False Morphine concentrate 100 mg/5 mL (20 mg/mL) oral solution [generic] 0.25ml (5mg) By Mouth Every 2 hours as needed For shortness of breath or pain 0.25ml (5mg) 11/12 Inactiv e 2023 93857 21396 1 Every 2 hours as needed By Mouth False Pantoprazol e 40 mg tablet,fern yed release [generic] 40 mg By Mouth Once daily For GERD 40 mg 11/12 Inactiv e 2023 68692 40745 0 Once daily By Mouth False Pregabalin 25 mg capsule [generic] 25 mg By Mouth 3 times a day For pain 25 mg 11/12 Inactiv e 2023 03442 64938 9 3 times a day By Mouth False Senna 8.8 mg/5 mL oral syrup 5ml By Mouth Twice daily as needed For constipation 5ml 11/09 Inactiv e 2023 22718 42084 8 Twice daily as needed By Mouth False Tramadol 50 mg tablet [generic] 50 mg By Mouth Twice daily For pain 50 mg 11/12 Inactiv e 2023 79099 76989 0 Twice daily By Mouth False Tylenol Arthritis Pain 650 mg tablet,exte nded release 650 mg By Mouth 3 times a day For pain 650 mg 11/08 Inactiv e 2023 17788 67064 1 3 times a day By Mouth False Xanax 0.25 mg tablet 0.25 mg By Mouth Three times daily as needed For anxiety 0.25 mg 11/12 Inactiv e 2023 74036 29149 1 Three times daily as needed By Mouth False Zyprexa 2.5 mg tablet 2.5 mg By Mouth At bedtime For major depressive disorder 2.5 mg 11/12 Inactiv e 2023 70537 32662 0 At bedtime By Mouth False Tylenol 325 mg tablet 650 mg By Mouth 3 times a day For pain 650 mg 11/09 Inactiv e 2023 83805 84199 0 3 times a day By Mouth False Tylenol Extra Strength 500 mg tablet 500 mg By Mouth 3 times a day For pain 500 mg 11/12 Inactiv e 2023 55493 51016 6 3 times a day By Mouth False Senna 8.8 mg/5 mL oral syrup Twice daily administer senna 5mL For constipation 8.8 mg/5 mL 11/12 Inactiv e 2023 53527 14348 8 Twice daily By Mouth False Dulcolax (bisacodyl) 10 mg rectal suppository 10 mg Rectal Daily as needed For constipation 10 mg 2023 Active 2023 49627 80734 1 Daily as needed Rectal False Citalopram 20 mg tablet [generic] 20 mg By Mouth Once daily For anxiety 20 mg 2023 Active 2023 68134 77075 1 Once daily By Mouth False Aspercreme (lidocaine HCl) 4 % topical 4 % Topical Three times daily as needed For pain to feet and legs 4 % 2023 Active 2023 90505 16375 0 Three times daily as needed Topica l False Haloperidol lactate 2 mg/mL oral concentrate [generic] 0.5ml By Mouth Every 4 hours as needed For agitation 0.5ml 2023 Active 2023 41700 93801 4 Every 4 hours as needed By Mouth False Haloperidol lactate 2 mg/mL oral concentrate [generic] 0.25ml By Mouth Every 4 days as needed For nausea/vomiti ng 0.25ml 2023 Active 2023 98721 42300 4 Every 4 days as needed By Mouth False Ipratropium 0.5 mg-albutero l 3 mg (2.5 mg base)/3 mL nebulizatio n soln [generic] 3ml Inhalation Every 6 hours as needed via nebulization route For shortness of breath 3ml 2023 Active 2023 03064 85727 3 Every 6 hours as needed Inhala tion False Lactulose 10 gram/15 mL (15 mL) oral solution [generic] 10 gram/15 m By Mouth Once daily For constipation 10 gram/15 m 2023 Active 2023 14745 06184 0 Once daily By Mouth False Morphine concentrate 100 mg/5 mL (20 mg/mL) oral solution [generic] 0.25ml (5mg) By Mouth Every 2 hours as needed For shortness of breath or pain 0.25ml (5mg) 2023 Active 2023 33742 10244 1 Every 2 hours as needed By Mouth False Pantoprazol e 40 mg tablet,fern yed release [generic] 40 mg By Mouth Once daily For GERD 40 mg 2023 Active 2023 04087 62248 0 Once daily By Mouth False Pregabalin 25 mg capsule [generic] 25 mg By Mouth 3 times a day For pain 25 mg 2023 Active 2023 82926 66856 9 3 times a day By Mouth False Tramadol 50 mg tablet [generic] 50 mg By Mouth Twice daily For pain 50 mg 2023 Active 2023 55058 89289 0 Twice daily By Mouth False Xanax 0.25 mg tablet 0.25 mg By Mouth Three times daily as needed For anxiety 0.25 mg 2023 Active 2023 09636 62921 1 Three times daily as needed By Mouth False Zyprexa 2.5 mg tablet 2.5 mg By Mouth At bedtime For major depressive disorder 2.5 mg 2023 Active 2023 60873 67966 0 At bedtime By Mouth False Tylenol Extra Strength 500 mg tablet 500 mg By Mouth 3 times a day For pain 500 mg 2023 Active 2023 46003 47355 6 3 times a day By Mouth False Senna 8.8 mg/5 mL oral syrup Twice daily administer senna 5mL For constipation 8.8 mg/5 mL 2023 Active 2023 95130 83664 8 Twice daily By Mouth False Dulcolax (bisacodyl) 10 mg rectal suppository 10 mg Rectal Daily as needed For constipation 10 mg 2023 Active 2023 68306 68336 1 Daily as needed Rectal False Citalopram 20 mg tablet [generic] 20 mg By Mouth Once daily For anxiety 20 mg 2023 Active 2023 00680 07891 1 Once daily By Mouth False Aspercreme (lidocaine HCl) 4 % topical 4 % Topical Three times daily as needed For pain to feet and legs 4 % 2023 Active 2023 99193 87677 0 Three times daily as needed Topica l False Haloperidol lactate 2 mg/mL oral concentrate [generic] 0.5ml By Mouth Every 4 hours as needed For agitation 0.5ml 2023 Active 2023 33886 27410 4 Every 4 hours as needed By Mouth False Haloperidol lactate 2 mg/mL oral concentrate [generic] 0.25ml By Mouth Every 4 days as needed For nausea/vomiti ng 0.25ml 2023 Active 2023 29725 21995 4 Every 4 days as needed By Mouth False Ipratropium 0.5 mg-albutero l 3 mg (2.5 mg base)/3 mL nebulizatio n soln [generic] 3ml Inhalation Every 6 hours as needed via nebulization route For shortness of breath 3ml 2023 Active 2023 64961 23425 3 Every 6 hours as needed Inhala tion False Lactulose 10 gram/15 mL (15 mL) oral solution [generic] 10 gram/15 m By Mouth Once daily For constipation 10 gram/15 m 2023 Active 2023 37811 52564 0 Once daily By Mouth False Morphine concentrate 100 mg/5 mL (20 mg/mL) oral solution [generic] 0.25ml (5mg) By Mouth Every 2 hours as needed For shortness of breath or pain 0.25ml (5mg) 2023 Active 2023 69048 07385 1 Every 2 hours as needed By Mouth False Pantoprazol e 40 mg tablet,fern yed release [generic] 40 mg By Mouth Once daily For GERD 40 mg 2023 Active 2023 09122 73378 0 Once daily By Mouth False Pregabalin 25 mg capsule [generic] 25 mg By Mouth 3 times a day For pain 25 mg 2023 Active 2023 85732 29758 9 3 times a day By Mouth False Tramadol 50 mg tablet [generic] 50 mg By Mouth Twice daily For pain 50 mg 2023 Active 2023 94951 31437 0 Twice daily By Mouth False Xanax 0.25 mg tablet 0.25 mg By Mouth Three times daily as needed For anxiety 0.25 mg 2023 Active 2023 88689 14276 1 Three times daily as needed By Mouth False Zyprexa 2.5 mg tablet 2.5 mg By Mouth At bedtime For major depressive disorder 2.5 mg 2023 Active 2023 35076 84507 0 At bedtime By Mouth False Tylenol Extra Strength 500 mg tablet 500 mg By Mouth 3 times a day For pain 500 mg 2023 Active 2023 80533 69404 6 3 times a day By Mouth False Senna 8.8 mg/5 mL oral syrup Twice daily administer senna 5mL For constipation 8.8 mg/5 mL 2023 Active 2023 80484 55688 8 Twice daily By Mouth False Dulcolax (bisacodyl) 10 mg rectal suppository 10 mg Rectal Daily as needed For constipation 10 mg 2023 Active 2023 15035 48481 1 Daily as needed Rectal False Citalopram 20 mg tablet [generic] 20 mg By Mouth Once daily For anxiety 20 mg 2023 Active 2023 72051 64991 1 Once daily By Mouth False Aspercreme (lidocaine HCl) 4 % topical 4 % Topical Three times daily as needed For pain to feet and legs 4 % 2023 Active 2023 60161 63247 0 Three times daily as needed Topica l False Haloperidol lactate 2 mg/mL oral concentrate [generic] 0.5ml By Mouth Every 4 hours as needed For agitation 0.5ml 2023 Active 2023 68894 58065 4 Every 4 hours as needed By Mouth False Haloperidol lactate 2 mg/mL oral concentrate [generic] 0.25ml By Mouth Every 4 days as needed For nausea/vomiti ng 0.25ml 2023 Active 2023 48586 23235 4 Every 4 days as needed By Mouth False Ipratropium 0.5 mg-albutero l 3 mg (2.5 mg base)/3 mL nebulizatio n soln [generic] 3ml Inhalation Every 6 hours as needed via nebulization route For shortness of breath 3ml 2023 Active 2023 18720 16542 3 Every 6 hours as needed Inhala tion False Morphine concentrate 100 mg/5 mL (20 mg/mL) oral solution [generic] 0.25ml (5mg) By Mouth Every 2 hours as needed For shortness of breath or pain 0.25ml (5mg) 2023 Active 2023 17381 07217 1 Every 2 hours as needed By Mouth False Pregabalin 75 mg capsule [generic] 75 mg By Mouth 3 times a day For pain 75 mg 2023 Active 2023 60761 52565 9 3 times a day By Mouth False Senna 8.8 mg/5 mL oral syrup 5ml By Mouth Twice daily as needed For constipation 5ml 2023 Active 2023 29528 23366 8 Twice daily as needed By Mouth False Tramadol 50 mg tablet [generic] 50 mg By Mouth Twice daily For pain 50 mg 2023 Active 2023 71712 50796 0 Twice daily By Mouth False Zyprexa 2.5 mg tablet 2.5 mg By Mouth At bedtime For major depressive disorder 2.5 mg 2023 Active 2023 02285 43745 0 At bedtime By Mouth False Tylenol Extra Strength 500 mg tablet 500 mg By Mouth 3 times a day For pain 500 mg 2023 Active 2023 72160 93341 6 3 times a day By Mouth False VITAL SIGNS Date Time Diastolic blood pressure Systolic blood pressure Body height Body weight Temperature SpO2 Blood Sugar Pulse Respirations 18824 101 58045 8 55.00 mm[Hg] - Lying Down 154.00 mm[Hg] - Lying Down 154.00 NI 98.10 Forehead Scan 94.00 % 76.00/ min 18.00/min 03045 101 08792 2 64 NI Immunizations Vaccine Date Status COVID-19 05/25/2020 Completed COVID-19 06/15/2020 Completed Influenza 05/12/2023 Completed (PCV20)Pneumococcal 05/12/2023 Completed
--- OUTSIDE RECORDS SUMMARY | 2024-04-08 21:57 | External Medical Summary | Continuity Of Care Document ---
Author Name Unknown Address [address] [address] Organization [facility] () Care Team Providers Care Dispatcher Service Name Role Phone DO Woody Amy Primary Care Provider [phone] Allergies Allergy Reaction Start Date End Date Status LORAZEPAM Active PENICILLINS Hives, Rash Active Medications Medication Instructions Dosage Start Date End Date Status Order Date Drug Code Frequency Route of Admin Diagnosis Code Substitutions Allowed Aspercreme (lidocaine HCl) 4 % topical 4 % Topical Three times daily as needed For pain to feet and legs 4 % 11/08 Inactiv e 2023 62207 67099 0 Three times daily as needed Topica l False Citalopram 20 mg tablet [generic] 20 mg By Mouth Once daily For anxiety 20 mg 11/08 Inactiv e 2023 26845 69065 1 Once daily By Mouth False Dulcolax (bisacodyl) 10 mg rectal suppository 10 mg Rectal Daily as needed For constipation 10 mg 2023 Active 2023 63578 79709 1 Daily as needed Rectal False Citalopram 20 mg tablet [generic] 20 mg By Mouth Once daily For anxiety 20 mg 2023 Active 2023 58239 43201 1 Once daily By Mouth False Aspercreme (lidocaine HCl) 4 % topical 4 % Topical Three times daily as needed For pain to feet and legs 4 % 2023 Active 2023 50549 58117 0 Three times daily as needed Topica l False Haloperidol lactate 2 mg/mL oral concentrate [generic] 0.5ml By Mouth Every 4 hours as needed For agitation 0.5ml 2023 Active 2023 94550 40140 4 Every 4 hours as needed By Mouth False Haloperidol lactate 2 mg/mL oral concentrate [generic] 0.25ml By Mouth Every 4 days as needed For nausea/vomiti ng 0.25ml 2023 Active 2023 85933 03787 4 Every 4 days as needed By Mouth False Ipratropium 0.5 mg-albutero l 3 mg (2.5 mg base)/3 mL nebulizatio n soln [generic] 3ml Inhalation Every 6 hours as needed via nebulization route For shortness of breath 3ml 2023 Active 2023 32672 97507 3 Every 6 hours as needed Inhala tion False Lactulose 10 gram/15 mL (15 mL) oral solution [generic] 10 gram/15 m By Mouth Once daily For constipation 10 gram/15 m 2023 Active 2023 03795 54179 0 Once daily By Mouth False Morphine concentrate 100 mg/5 mL (20 mg/mL) oral solution [generic] 0.25ml (5mg) By Mouth Every 2 hours as needed For shortness of breath or pain 0.25ml (5mg) 2023 Active 2023 31601 58425 1 Every 2 hours as needed By Mouth False Pantoprazol e 40 mg tablet,fern yed release [generic] 40 mg By Mouth Once daily For GERD 40 mg 2023 Active 2023 00676 72981 0 Once daily By Mouth False Pregabalin 25 mg capsule [generic] 25 mg By Mouth 3 times a day For pain 25 mg 2023 Active 2023 09687 55930 9 3 times a day By Mouth False Senna 8.8 mg/5 mL oral syrup 5ml By Mouth Twice daily as needed For constipation 5ml 11/09 Inactiv e 2023 25931 53723 8 Twice daily as needed By Mouth False Tramadol 50 mg tablet [generic] 50 mg By Mouth Twice daily For pain 50 mg 2023 Active 2023 86972 65934 0 Twice daily By Mouth False Tylenol Arthritis Pain 650 mg tablet,exte nded release 650 mg By Mouth 3 times a day For pain 650 mg 11/08 Inactiv e 2023 05241 12775 1 3 times a day By Mouth False Xanax 0.25 mg tablet 0.25 mg By Mouth Three times daily as needed For anxiety 0.25 mg 2023 Active 2023 52654 04446 1 Three times daily as needed By Mouth False Zyprexa 2.5 mg tablet 2.5 mg By Mouth At bedtime For major depressive disorder 2.5 mg 2023 Active 20232 28840 0 At bedtime By Mouth False Tylenol 325 mg tablet 650 mg By Mouth 3 times a day For pain 650 mg 11/09 Inactiv e 2023 74398 18961 0 3 times a day By Mouth False Tylenol Extra Strength 500 mg tablet 500 mg By Mouth 3 times a day For pain 500 mg 2023 Active 2023 23566 15074 6 3 times a day By Mouth False Senna 8.8 mg/5 mL oral syrup Twice daily administer senna 5mL For constipation 8.8 mg/5 mL 2023 Active 2023 87923 13702 8 Twice daily By Mouth False Problems Code Description Start Date End Date Status I67.9 Cerebrovascular disease, unspecified 11/09/2023 Active 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 Essential (primary) hypertension 11/09/2023 Active E11.9 Type 2 diabetes mellitus without complications 11/09/2023 Active K21.9 Gastro-esophageal re flux disease without esophagitis 11/09/2023 Active F32.A Depression, unspecified 11/09/2023 A ctive G62.9 Polyneuropathy, unspecified 11/09/2023 Active J44.9 Chronic obstructive pulmonary disease, unspecified 11/09/2023 Active VITAL SIGNS Date Time Diastolic blood pressure Systolic blood pressure Body height Body weight Temperature SpO2 Blood Sugar Pulse Respirations 625 48905 9 65.00 mm[Hg] - Lying Down 112.00 mm[Hg] - Lying Down 98.60 Tympanic 94.00 % 80.00/ min 18.00/min 27849 625 02960 8 65.00 mm[Hg] - Sitting 112.00 mm[Hg] - Sitting 98.60 Tympanic 80.00/ min 18.00/min 99016 626 73751 0 97.90 Tympanic 82.00/ min 18.00/min 78797 626 40260 8 62.00 mm[Hg] - Sitting 114.00 mm[Hg] - Sitting 70987 626 15485 4 66.00 mm[Hg] - Sitting 120.00 mm[Hg] - Sitting 98.10 Tympanic 78.00/ min 18.00/min 48250 627 94889 6 70.00 mm[Hg] - Sitting 122.00 mm[Hg] - Sitting 97.80 Tympanic 68.00/ min 18.00/min 06741 627 40425 8 143.00 NI [address] 627 60969 9 68.00 mm[Hg] - Sitting 118.00 mm[Hg] - Sitting 98.00 Tympanic 72.00/ min 18.00/min 12548 627 73861 6 66.00 mm[Hg] - Lying Down 122.00 mm[Hg] - Lying Down 97.80 Tympanic 74.00/ min 18.00/min Immunizations Vaccine Date Status COVID-19 05/25/2020 Completed COVID-19 06/15/2020 Completed Influenza 05/12/2023 Completed (PCV20)Pneumococcal 05/12/2023 Completed
--- OUTSIDE RECORDS SUMMARY | 2024-04-08 21:57 | External Medical Summary | Continuity Of Care Document ---
Author Name Unknown Address [address] [address] Organization [facility] () Care Team Providers Care Attraction Worker Name Role Phone DO Woody Amy Primary Care Provider [phone] Allergies Allergy Reaction Start Date End Date Status LORAZEPAM Active PENICILLINS Hives, Rash Active Medications Medication Instructions Dosage Start Date End Date Status Order Date Drug Code Frequency Route of Admin Diagnosis Code Substitutions Allowed Aspercreme (lidocaine HCl) 4 % topical 4 % Topical Three times daily as needed For pain to feet and legs 4 % 11/08 Inactiv e 2023 36837 40008 0 Three times daily as needed Topica l False Citalopram 20 mg tablet [generic] 20 mg By Mouth Once daily For anxiety 20 mg 11/08 Inactiv e 2023 07877 60483 1 Once daily By Mouth False Dulcolax (bisacodyl) 10 mg rectal suppository 10 mg Rectal Daily as needed For constipation 10 mg 2023 Active 2023 10370 84247 1 Daily as needed Rectal False Citalopram 20 mg tablet [generic] 20 mg By Mouth Once daily For anxiety 20 mg 2023 Active 2023 26759 27616 1 Once daily By Mouth False Aspercreme (lidocaine HCl) 4 % topical 4 % Topical Three times daily as needed For pain to feet and legs 4 % 2023 Active 2023 56097 93114 0 Three times daily as needed Topica l False Haloperidol lactate 2 mg/mL oral concentrate [generic] 0.5ml By Mouth Every 4 hours as needed For agitation 0.5ml 2023 Active 2023 96802 14660 4 Every 4 hours as needed By Mouth False Haloperidol lactate 2 mg/mL oral concentrate [generic] 0.25ml By Mouth Every 4 days as needed For nausea/vomiti ng 0.25ml 2023 Active 2023 92378 45429 4 Every 4 days as needed By Mouth False Ipratropium 0.5 mg-albutero l 3 mg (2.5 mg base)/3 mL nebulizatio n soln [generic] 3ml Inhalation Every 6 hours as needed via nebulization route For shortness of breath 3ml 2023 Active 2023 18540 46621 3 Every 6 hours as needed Inhala tion False Lactulose 10 gram/15 mL (15 mL) oral solution [generic] 10 gram/15 m By Mouth Once daily For constipation 10 gram/15 m 2023 Active 2023 81793 32516 0 Once daily By Mouth False Morphine concentrate 100 mg/5 mL (20 mg/mL) oral solution [generic] 0.25ml (5mg) By Mouth Every 2 hours as needed For shortness of breath or pain 0.25ml (5mg) 2023 Active 2023 65850 51763 1 Every 2 hours as needed By Mouth False Pantoprazol e 40 mg tablet,fern yed release [generic] 40 mg By Mouth Once daily For GERD 40 mg 2023 Active 2023 87246 71058 0 Once daily By Mouth False Pregabalin 25 mg capsule [generic] 25 mg By Mouth 3 times a day For pain 25 mg 2023 Active 2023 90149 28468 9 3 times a day By Mouth False Senna 8.8 mg/5 mL oral syrup 5ml By Mouth Twice daily as needed For constipation 5ml 11/09 Inactiv e 2023 30186 24282 8 Twice daily as needed By Mouth False Tramadol 50 mg tablet [generic] 50 mg By Mouth Twice daily For pain 50 mg 2023 Active 2023 56231 53555 0 Twice daily By Mouth False Tylenol Arthritis Pain 650 mg tablet,exte nded release 650 mg By Mouth 3 times a day For pain 650 mg 11/08 Inactiv e 2023 28722 99639 1 3 times a day By Mouth False Xanax 0.25 mg tablet 0.25 mg By Mouth Three times daily as needed For anxiety 0.25 mg 2023 Active 2023 34236 57167 1 Three times daily as needed By Mouth False Zyprexa 2.5 mg tablet 2.5 mg By Mouth At bedtime For major depressive disorder 2.5 mg 2023 Active 20232 22326 0 At bedtime By Mouth False Tylenol 325 mg tablet 650 mg By Mouth 3 times a day For pain 650 mg 11/09 Inactiv e 2023 72793 20747 0 3 times a day By Mouth False Tylenol Extra Strength 500 mg tablet 500 mg By Mouth 3 times a day For pain 500 mg 2023 Active 2023 45214 80040 6 3 times a day By Mouth False Senna 8.8 mg/5 mL oral syrup Twice daily administer senna 5mL For constipation 8.8 mg/5 mL 2023 Active 2023 52400 12928 8 Twice daily By Mouth False Dulcolax (bisacodyl) 10 mg rectal suppository 10 mg Rectal Daily as needed For constipation 10 mg 2023 Active 2023 56190 03763 1 Daily as needed Rectal False Citalopram 20 mg tablet [generic] 20 mg By Mouth Once daily For anxiety 20 mg 2023 Active 2023 00393 92108 1 Once daily By Mouth False Aspercreme (lidocaine HCl) 4 % topical 4 % Topical Three times daily as needed For pain to feet and legs 4 % 2023 Active 2023 52788 89960 0 Three times daily as needed Topica l False Haloperidol lactate 2 mg/mL oral concentrate [generic] 0.5ml By Mouth Every 4 hours as needed For agitation 0.5ml 2023 Active 2023 33613 53949 4 Every 4 hours as needed By Mouth False Haloperidol lactate 2 mg/mL oral concentrate [generic] 0.25ml By Mouth Every 4 days as needed For nausea/vomiti ng 0.25ml 2023 Active 2023 68800 42655 4 Every 4 days as needed By Mouth False Ipratropium 0.5 mg-albutero l 3 mg (2.5 mg base)/3 mL nebulizatio n soln [generic] 3ml Inhalation Every 6 hours as needed via nebulization route For shortness of breath 3ml 2023 Active 2023 92125 42353 3 Every 6 hours as needed Inhala tion False Lactulose 10 gram/15 mL (15 mL) oral solution [generic] 10 gram/15 m By Mouth Once daily For constipation 10 gram/15 m 2023 Active 2023 82197 59991 0 Once daily By Mouth False Morphine concentrate 100 mg/5 mL (20 mg/mL) oral solution [generic] 0.25ml (5mg) By Mouth Every 2 hours as needed For shortness of breath or pain 0.25ml (5mg) 2023 Active 2023 48587 55293 1 Every 2 hours as needed By Mouth False Pantoprazol e 40 mg tablet,fern yed release [generic] 40 mg By Mouth Once daily For GERD 40 mg 2023 Active 2023 14879 26981 0 Once daily By Mouth False Pregabalin 25 mg capsule [generic] 25 mg By Mouth 3 times a day For pain 25 mg 2023 Active 2023 67084 40829 9 3 times a day By Mouth False Tramadol 50 mg tablet [generic] 50 mg By Mouth Twice daily For pain 50 mg 2023 Active 2023 64730 99697 0 Twice daily By Mouth False Xanax 0.25 mg tablet 0.25 mg By Mouth Three times daily as needed For anxiety 0.25 mg 2023 Active 2023 97206 97736 1 Three times daily as needed By Mouth False Zyprexa 2.5 mg tablet 2.5 mg By Mouth At bedtime For major depressive disorder 2.5 mg 2023 Active 2023 87142 88322 0 At bedtime By Mouth False Tylenol Extra Strength 500 mg tablet 500 mg By Mouth 3 times a day For pain 500 mg 2023 Active 2023 35634 04414 6 3 times a day By Mouth False Senna 8.8 mg/5 mL oral syrup Twice daily administer senna 5mL For constipation 8.8 mg/5 mL 2023 Active 2023 08862 97649 8 Twice daily By Mouth False Dulcolax (bisacodyl) 10 mg rectal suppository 10 mg Rectal Daily as needed For constipation 10 mg 2023 Active 2023 41811 16795 1 Daily as needed Rectal False Citalopram 20 mg tablet [generic] 20 mg By Mouth Once daily For anxiety 20 mg 2023 Active 2023 00720 62209 1 Once daily By Mouth False Aspercreme (lidocaine HCl) 4 % topical 4 % Topical Three times daily as needed For pain to feet and legs 4 % 2023 Active 2023 89417 02209 0 Three times daily as needed Topica l False Haloperidol lactate 2 mg/mL oral concentrate [generic] 0.5ml By Mouth Every 4 hours as needed For agitation 0.5ml 2023 Active 2023 30530 09818 4 Every 4 hours as needed By Mouth False Haloperidol lactate 2 mg/mL oral concentrate [generic] 0.25ml By Mouth Every 4 days as needed For nausea/vomiti ng 0.25ml 2023 Active 2023 78139 70923 4 Every 4 days as needed By Mouth False Ipratropium 0.5 mg-albutero l 3 mg (2.5 mg base)/3 mL nebulizatio n soln [generic] 3ml Inhalation Every 6 hours as needed via nebulization route For shortness of breath 3ml 2023 Active 2023 87025 49407 3 Every 6 hours as needed Inhala tion False Lactulose 10 gram/15 mL (15 mL) oral solution [generic] 10 gram/15 m By Mouth Once daily For constipation 10 gram/15 m 2023 Active 2023 20296 96042 0 Once daily By Mouth False Morphine concentrate 100 mg/5 mL (20 mg/mL) oral solution [generic] 0.25ml (5mg) By Mouth Every 2 hours as needed For shortness of breath or pain 0.25ml (5mg) 2023 Active 2023 31832 14130 1 Every 2 hours as needed By Mouth False Pantoprazol e 40 mg tablet,fern yed release [generic] 40 mg By Mouth Once daily For GERD 40 mg 2023 Active 2023 29700 24602 0 Once daily By Mouth False Pregabalin 25 mg capsule [generic] 25 mg By Mouth 3 times a day For pain 25 mg 2023 Active 2023 70697 36045 9 3 times a day By Mouth False Tramadol 50 mg tablet [generic] 50 mg By Mouth Twice daily For pain 50 mg 2023 Active 2023 99429 88840 0 Twice daily By Mouth False Xanax 0.25 mg tablet 0.25 mg By Mouth Three times daily as needed For anxiety 0.25 mg 2023 Active 2023 93297 54459 1 Three times daily as needed By Mouth False Zyprexa 2.5 mg tablet 2.5 mg By Mouth At bedtime For major depressive disorder 2.5 mg 2023 Active 2023 13304 87937 0 At bedtime By Mouth False Tylenol Extra Strength 500 mg tablet 500 mg By Mouth 3 times a day For pain 500 mg 2023 Active 2023 49605 44590 6 3 times a day By Mouth False Senna 8.8 mg/5 mL oral syrup Twice daily administer senna 5mL For constipation 8.8 mg/5 mL 2023 Active 2023 52290 32830 8 Twice daily By Mouth False Problems [...] unspecified 11/09/2023 Active E78.5 Hyperlipidemia, unspecified 11/09/2023 00 Active I51.9 Heart disease, unspecified 11/09/2023 0 Active I10. Essential (primary) hypertension 11/09/2023 Active E11.9 Type 2 diabetes mellitus without complications 11/09/2023 Active K21.9 Gastro-esophageal re flux disease without esophagitis 11/09/2023 Active F32.A Depression, unspecified 11/09/2023 A ctive G62.9 Polyneuropathy, unspecified 11/09/2023 00 Active J44.9 Chronic obstructive pulmonary disease, unspecified 11/09/2023 Active VITAL SIGNS Date Time Diastolic blood pressure Systolic blood pressure Body height Body weight Temperature SpO2 Blood Sugar Pulse Respirations 37653 625 71298 9 65.00 mm[Hg] - Lying Down 112.00 mm[Hg] - Lying Down 98.60 Tympanic 94.00 % 80.00/ min 18.00/min 19551 625 48378 8 65.00 mm[Hg] - Sitting 112.00 mm[Hg] - Sitting 98.60 Tympanic 80.00/ min 18.00/min 70455 626 29060 0 97.90 Tympanic 82.00/ min 18.00/min 57498 626 51274 8 62.00 mm[Hg] - Sitting 114.00 mm[Hg] - Sitting 95526 626 29161 4 66.00 mm[Hg] - Sitting 120.00 mm[Hg] - Sitting 98.10 Tympanic 78.00/ min 18.00/min 03801 627 65172 6 70.00 mm[Hg] - Sitting 122.00 mm[Hg] - Sitting 97.80 Tympanic 68.00/ min 18.00/min 42757 627 37912 8 143.00 [place] [address] 627 18100 9 68.00 mm[Hg] - Sitting 118.00 mm[Hg] - Sitting 98.00 Tympanic 72.00/ min 18.00/min 62103 627 28666 6 66.00 mm[Hg] - Lying Down 122.00 mm[Hg] - Lying Down 97.80 Tympanic 74.00/ min 18.00/min Immunizations Vaccine Date Status COVID-19 05/25/2020 Completed COVID-19 06/15/2020 Completed Influenza 05/12/2023 Completed (PCV20)Pneumococcal 05/12/2023 Completed
--- OUTSIDE RECORDS SUMMARY | 2024-04-08 21:57 | External Medical Summary | Continuity Of Care Document ---
Author Name Unknown Address [address] [address] Organization [facility] () Care Team Providers Care Senior Talent Management Consultant Name Role Phone DO Woody Amy Primary Care Provider [phone] Allergies Allergy Reaction Start Date End Date Status LORAZEPAM Active PENICILLINS Hives, Rash Active Medications Medication Instructions Dosage Start Date End Date Status Order Date Drug Code Frequency Route of Admin Diagnosis Code Substitutions Allowed Aspercreme (lidocaine HCl) 4 % topical 4 % Topical Three times daily as needed For pain to feet and legs 4 % 11/08 Inactiv e 2023 34494 80139 0 Three times daily as needed Topica l False Citalopram 20 mg tablet [generic] 20 mg By Mouth Once daily For anxiety 20 mg 11/08 Inactiv e 2023 36203 06036 1 Once daily By Mouth False Dulcolax (bisacodyl) 10 mg rectal suppository 10 mg Rectal Daily as needed For constipation 10 mg 11/12 Inactiv e 2023 67244 11935 1 Daily as needed Rectal False Citalopram 20 mg tablet [generic] 20 mg By Mouth Once daily For anxiety 20 mg 11/12 Inactiv e 2023 81948 31489 1 Once daily By Mouth False Aspercreme (lidocaine HCl) 4 % topical 4 % Topical Three times daily as needed For pain to feet and legs 4 % 11/12 Inactiv e 2023 75077 20430 0 Three times daily as needed Topica l False Haloperidol lactate 2 mg/mL oral concentrate [generic] 0.5ml By Mouth Every 4 hours as needed For agitation 0.5ml 11/12 Inactiv e 2023 92622 50129 4 Every 4 hours as needed By Mouth False Haloperidol lactate 2 mg/mL oral concentrate [generic] 0.25ml By Mouth Every 4 days as needed For nausea/vomiti ng 0.25ml 11/12 Inactiv e 2023 85412 64798 4 Every 4 days as needed By Mouth False Ipratropium 0.5 mg-albutero l 3 mg (2.5 mg base)/3 mL nebulizatio n soln [generic] 3ml Inhalation Every 6 hours as needed via nebulization route For shortness of breath 3ml 11/12 Inactiv e 2023 42676 40431 3 Every 6 hours as needed Inhala tion False Lactulose 10 gram/15 mL (15 mL) oral solution [generic] 10 gram/15 m By Mouth Once daily For constipation 10 gram/15 m 11/12 Inactiv e 2023 19917 07244 0 Once daily By Mouth False Morphine concentrate 100 mg/5 mL (20 mg/mL) oral solution [generic] 0.25ml (5mg) By Mouth Every 2 hours as needed For shortness of breath or pain 0.25ml (5mg) 11/12 Inactiv e 2023 27940 15974 1 Every 2 hours as needed By Mouth False Pantoprazol e 40 mg tablet,fern yed release [generic] 40 mg By Mouth Once daily For GERD 40 mg 11/12 Inactiv e 2023 36173 69205 0 Once daily By Mouth False Pregabalin 25 mg capsule [generic] 25 mg By Mouth 3 times a day For pain 25 mg 11/12 Inactiv e 2023 91242 94080 9 3 times a day By Mouth False Senna 8.8 mg/5 mL oral syrup 5ml By Mouth Twice daily as needed For constipation 5ml 11/09 Inactiv e 2023 74172 30485 8 Twice daily as needed By Mouth False Tramadol 50 mg tablet [generic] 50 mg By Mouth Twice daily For pain 50 mg 11/12 Inactiv e 2023 82284 37359 0 Twice daily By Mouth False Tylenol Arthritis Pain 650 mg tablet,exte nded release 650 mg By Mouth 3 times a day For pain 650 mg 11/08 Inactiv e 2023 12086 30209 1 3 times a day By Mouth False Xanax 0.25 mg tablet 0.25 mg By Mouth Three times daily as needed For anxiety 0.25 mg 11/12 Inactiv e 2023 18315 79971 1 Three times daily as needed By Mouth False Zyprexa 2.5 mg tablet 2.5 mg By Mouth At bedtime For major depressive disorder 2.5 mg 11/12 Inactiv e 2023 59517 70717 0 At bedtime By Mouth False Tylenol 325 mg tablet 650 mg By Mouth 3 times a day For pain 650 mg 11/09 Inactiv e 2023 39177 70352 0 3 times a day By Mouth False Tylenol Extra Strength 500 mg tablet 500 mg By Mouth 3 times a day For pain 500 mg 11/12 Inactiv e 2023 63791 75488 6 3 times a day By Mouth False Senna 8.8 mg/5 mL oral syrup Twice daily administer senna 5mL For constipation 8.8 mg/5 mL 11/12 Inactiv e 2023 67732 29508 8 Twice daily By Mouth False Dulcolax (bisacodyl) 10 mg rectal suppository 10 mg Rectal Daily as needed For constipation 10 mg 2023 Active 2023 16651 16189 1 Daily as needed Rectal False Citalopram 20 mg tablet [generic] 20 mg By Mouth Once daily For anxiety 20 mg 2023 Active 2023 87474 16727 1 Once daily By Mouth False Aspercreme (lidocaine HCl) 4 % topical 4 % Topical Three times daily as needed For pain to feet and legs 4 % 2023 Active 2023 27263 22064 0 Three times daily as needed Topica l False Haloperidol lactate 2 mg/mL oral concentrate [generic] 0.5ml By Mouth Every 4 hours as needed For agitation 0.5ml 2023 Active 2023 18770 64776 4 Every 4 hours as needed By Mouth False Haloperidol lactate 2 mg/mL oral concentrate [generic] 0.25ml By Mouth Every 4 days as needed For nausea/vomiti ng 0.25ml 2023 Active 2023 48043 84033 4 Every 4 days as needed By Mouth False Ipratropium 0.5 mg-albutero l 3 mg (2.5 mg base)/3 mL nebulizatio n soln [generic] 3ml Inhalation Every 6 hours as needed via nebulization route For shortness of breath 3ml 2023 Active 2023 44620 42503 3 Every 6 hours as needed Inhala tion False Lactulose 10 gram/15 mL (15 mL) oral solution [generic] 10 gram/15 m By Mouth Once daily For constipation 10 gram/15 m 2023 Active 2023 20306 73882 0 Once daily By Mouth False Morphine concentrate 100 mg/5 mL (20 mg/mL) oral solution [generic] 0.25ml (5mg) By Mouth Every 2 hours as needed For shortness of breath or pain 0.25ml (5mg) 2023 Active 2023 09794 97986 1 Every 2 hours as needed By Mouth False Pantoprazol e 40 mg tablet,fern yed release [generic] 40 mg By Mouth Once daily For GERD 40 mg 2023 Active 2023 65001 12553 0 Once daily By Mouth False Pregabalin 25 mg capsule [generic] 25 mg By Mouth 3 times a day For pain 25 mg 2023 Active 2023 63985 28815 9 3 times a day By Mouth False Tramadol 50 mg tablet [generic] 50 mg By Mouth Twice daily For pain 50 mg 2023 Active 2023 09170 13179 0 Twice daily By Mouth False Xanax 0.25 mg tablet 0.25 mg By Mouth Three times daily as needed For anxiety 0.25 mg 2023 Active 2023 86136 85637 1 Three times daily as needed By Mouth False Zyprexa 2.5 mg tablet 2.5 mg By Mouth At bedtime For major depressive disorder 2.5 mg 2023 Active 2023 36785 34167 0 At bedtime By Mouth False Tylenol Extra Strength 500 mg tablet 500 mg By Mouth 3 times a day For pain 500 mg 2023 Active 2023 44230 97737 6 3 times a day By Mouth False Senna 8.8 mg/5 mL oral syrup Twice daily administer senna 5mL For constipation 8.8 mg/5 mL 2023 Active 2023 15844 82094 8 Twice daily By Mouth False Dulcolax (bisacodyl) 10 mg rectal suppository 10 mg Rectal Daily as needed For constipation 10 mg 2023 Active 2023 83135 08818 1 Daily as needed Rectal False Citalopram 20 mg tablet [generic] 20 mg By Mouth Once daily For anxiety 20 mg 2023 Active 2023 42050 77748 1 Once daily By Mouth False Aspercreme (lidocaine HCl) 4 % topical 4 % Topical Three times daily as needed For pain to feet and legs 4 % 2023 Active 2023 51482 53064 0 Three times daily as needed Topica l False Haloperidol lactate 2 mg/mL oral concentrate [generic] 0.5ml By Mouth Every 4 hours as needed For agitation 0.5ml 2023 Active 2023 80873 66976 4 Every 4 hours as needed By Mouth False Haloperidol lactate 2 mg/mL oral concentrate [generic] 0.25ml By Mouth Every 4 days as needed For nausea/vomiti ng 0.25ml 2023 Active 2023 43022 85040 4 Every 4 days as needed By Mouth False Ipratropium 0.5 mg-albutero l 3 mg (2.5 mg base)/3 mL nebulizatio n soln [generic] 3ml Inhalation Every 6 hours as needed via nebulization route For shortness of breath 3ml 2023 Active 2023 08486 23710 3 Every 6 hours as needed Inhala tion False Lactulose 10 gram/15 mL (15 mL) oral solution [generic] 10 gram/15 m By Mouth Once daily For constipation 10 gram/15 m 2023 Active 2023 22516 66189 0 Once daily By Mouth False Morphine concentrate 100 mg/5 mL (20 mg/mL) oral solution [generic] 0.25ml (5mg) By Mouth Every 2 hours as needed For shortness of breath or pain 0.25ml (5mg) 2023 Active 2023 17307 42495 1 Every 2 hours as needed By Mouth False Pantoprazol e 40 mg tablet,fern yed release [generic] 40 mg By Mouth Once daily For GERD 40 mg 2023 Active 2023 60652 07688 0 Once daily By Mouth False Pregabalin 25 mg capsule [generic] 25 mg By Mouth 3 times a day For pain 25 mg 2023 Active 2023 98146 07338 9 3 times a day By Mouth False Tramadol 50 mg tablet [generic] 50 mg By Mouth Twice daily For pain 50 mg 2023 Active 2023 50335 93075 0 Twice daily By Mouth False Xanax 0.25 mg tablet 0.25 mg By Mouth Three times daily as needed For anxiety 0.25 mg 2023 Active 2023 90666 73588 1 Three times daily as needed By Mouth False Zyprexa 2.5 mg tablet 2.5 mg By Mouth At bedtime For major depressive disorder 2.5 mg 2023 Active 2023 24634 88323 0 At bedtime By Mouth False Tylenol Extra Strength 500 mg tablet 500 mg By Mouth 3 times a day For pain 500 mg 2023 Active 2023 61066 15056 6 3 times a day By Mouth False Senna 8.8 mg/5 mL oral syrup Twice daily administer senna 5mL For constipation 8.8 mg/5 mL 2023 Active 2023 38233 30068 8 Twice daily By Mouth False Dulcolax (bisacodyl) 10 mg rectal suppository 10 mg Rectal Daily as needed For constipation 10 mg 2023 Active 2023 60744 84893 1 Daily as needed Rectal False Citalopram 20 mg tablet [generic] 20 mg By Mouth Once daily For anxiety 20 mg 2023 Active 2023 82504 77381 1 Once daily By Mouth False Aspercreme (lidocaine HCl) 4 % topical 4 % Topical Three times daily as needed For pain to feet and legs 4 % 2023 Active 2023 19181 36248 0 Three times daily as needed Topica l False Haloperidol lactate 2 mg/mL oral concentrate [generic] 0.5ml By Mouth Every 4 hours as needed For agitation 0.5ml 2023 Active 2023 82031 56278 4 Every 4 hours as needed By Mouth False Haloperidol lactate 2 mg/mL oral concentrate [generic] 0.25ml By Mouth Every 4 days as needed For nausea/vomiti ng 0.25ml 2023 Active 2023 53906 93537 4 Every 4 days as needed By Mouth False Ipratropium 0.5 mg-albutero l 3 mg (2.5 mg base)/3 mL nebulizatio n soln [generic] 3ml Inhalation Every 6 hours as needed via nebulization route For shortness of breath 3ml 2023 Active 2023 22246 91407 3 Every 6 hours as needed Inhala tion False Morphine concentrate 100 mg/5 mL (20 mg/mL) oral solution [generic] 0.25ml (5mg) By Mouth Every 2 hours as needed For shortness of breath or pain 0.25ml (5mg) 2023 Active 2023 19194 38625 1 Every 2 hours as needed By Mouth False Pregabalin 75 mg capsule [generic] 75 mg By Mouth 3 times a day For pain 75 mg 2023 Active 2023 23404 08657 9 3 times a day By Mouth False Senna 8.8 mg/5 mL oral syrup 5ml By Mouth Twice daily as needed For constipation 5ml 2023 Active 2023 74106 48549 8 Twice daily as needed By Mouth False Tramadol 50 mg tablet [generic] 50 mg By Mouth Twice daily For pain 50 mg 2023 Active 2023 66277 54884 0 Twice daily By Mouth False Zyprexa 2.5 mg tablet 2.5 mg By Mouth At bedtime For major depressive disorder 2.5 mg 2023 Active 2023 30742 43668 0 At bedtime By Mouth False Tylenol Extra Strength 500 mg tablet 500 mg By Mouth 3 times a day For pain 500 mg 2023 Active 2023 13102 14458 6 3 times a day By Mouth False Trazodone 50 mg tablet [generic] ONE HALF TAB 25mg By Mouth At bedtime For sleep 25mg 2023 Active 2023 39272 36889 1 At bedtime By Mouth False Klonopin 0.5 mg tablet 0.5mg By Mouth At bedtime For sleep 0.5mg 2023 Active 2023 61604 2 At bedtime By Mouth False VITAL SIGNS Date Time Diastolic blood pressure Systolic blood pressure Body height Body weight Temperature SpO2 Blood Sugar Pulse Respirations 87835 101 33977 8 55.00 mm[Hg] - Lying Down 154.00 mm[Hg] - Lying Down 154.00 NI 98.10 Forehead Scan 94.00 % 76.00/ min 18.00/min 101 85934 2 64 NI Immunizations Vaccine Date Status COVID-19 05/25/2020 Completed COVID-19 06/15/2020 Completed Influenza 05/12/2023 Completed (PCV20)Pneumococcal 05/12/2023 Completed
--- OUTSIDE RECORDS SUMMARY | 2024-04-08 21:57 | External Medical Summary | Continuity Of Care Document ---
Author Name Unknown Address [address] [facility] () Care Team Providers Care Wind Site Manager Name Role Phone DO Woody Amy Primary Care Provider [phone] Allergies Allergy Reaction Start Date End Date Status LORAZEPAM Active PENICILLINS Hives, Rash Active Medications Medication Instructions Dosage Start Date End Date Status Order Date Drug Code Frequency Route of Admin Diagnosis Code Substitutions Allowed Aspercreme (lidocaine HCl) 4 % topical 4 % Topical Three times daily as needed For pain to feet and legs 4 % 11/08 Inactiv e 2023 63312 28812 0 Three times daily as needed Topica l False Citalopram 20 mg tablet [generic] 20 mg By Mouth Once daily For anxiety 20 mg 11/08 Inactiv e 2023 73680 83550 1 Once daily By Mouth False Dulcolax (bisacodyl) 10 mg rectal suppository 10 mg Rectal Daily as needed For constipation 10 mg 2023 Active 2023 96880 93015 1 Daily as needed Rectal False Citalopram 20 mg tablet [generic] 20 mg By Mouth Once daily For anxiety 20 mg 2023 Active 2023 42473 47398 1 Once daily By Mouth False Aspercreme (lidocaine HCl) 4 % topical 4 % Topical Three times daily as needed For pain to feet and legs 4 % 2023 Active 2023 05308 47795 0 Three times daily as needed Topica l False Haloperidol lactate 2 mg/mL oral concentrate [generic] 0.5ml By Mouth Every 4 hours as needed For agitation 0.5ml 2023 Active 2023 33484 40792 4 Every 4 hours as needed By Mouth False Haloperidol lactate 2 mg/mL oral concentrate [generic] 0.25ml By Mouth Every 4 days as needed For nausea/vomiti ng 0.25ml 2023 Active 2023 92334 08686 4 Every 4 days as needed By Mouth False Ipratropium 0.5 mg-albutero l 3 mg (2.5 mg base)/3 mL nebulizatio n soln [generic] 3ml Inhalation Every 6 hours as needed via nebulization route For shortness of breath 3ml 2023 Active 2023 70415 38913 3 Every 6 hours as needed Inhala tion False Lactulose 10 gram/15 mL (15 mL) oral solution [generic] 10 gram/15 m By Mouth Once daily For constipation 10 gram/15 m 2023 Active 2023 34818 70781 0 Once daily By Mouth False Morphine concentrate 100 mg/5 mL (20 mg/mL) oral solution [generic] 0.25ml (5mg) By Mouth Every 2 hours as needed For shortness of breath or pain 0.25ml (5mg) 2023 Active 2023 81790 49073 1 Every 2 hours as needed By Mouth False Pantoprazol e 40 mg tablet,fern yed release [generic] 40 mg By Mouth Once daily For GERD 40 mg 2023 Active 2023 24104 33267 0 Once daily By Mouth False Pregabalin 25 mg capsule [generic] 25 mg By Mouth 3 times a day For pain 25 mg 2023 Active 2023 00195 47148 9 3 times a day By Mouth False Senna 8.8 mg/5 mL oral syrup 5ml By Mouth Twice daily as needed For constipation 5ml 11/09 Inactiv e 2023 55868 96189 8 Twice daily as needed By Mouth False Tramadol 50 mg tablet [generic] 50 mg By Mouth Twice daily For pain 50 mg 2023 Active 2023 19165 71340 0 Twice daily By Mouth False Tylenol Arthritis Pain 650 mg tablet,exte nded release 650 mg By Mouth 3 times a day For pain 650 mg 11/08 Inactiv e 2023 46956 49320 1 3 times a day By Mouth False Xanax 0.25 mg tablet 0.25 mg By Mouth Three times daily as needed For anxiety 0.25 mg 2023 Active 2023 86535 61791 1 Three times daily as needed By Mouth False Zyprexa 2.5 mg tablet 2.5 mg By Mouth At bedtime For major depressive disorder 2.5 mg 2023 Active 20232 55255 0 At bedtime By Mouth False Tylenol 325 mg tablet 650 mg By Mouth 3 times a day For pain 650 mg 11/09 Inactiv e 2023 84782 28400 0 3 times a day By Mouth False Tylenol Extra Strength 500 mg tablet 500 mg By Mouth 3 times a day For pain 500 mg 2023 Active 2023 61228 42597 6 3 times a day By Mouth False Senna 8.8 mg/5 mL oral syrup Twice daily administer senna 5mL For constipation 8.8 mg/5 mL 2023 Active 2023 81267 79408 8 Twice daily By Mouth False Problems [...] Temperature SpO2 Blood Sugar Pulse Respirations 625 70831 9 65.00 mm[Hg] - Lying Down 112.00 mm[Hg] - Lying Down 98.60 Tympanic 94.00 % 80.00/ min 18.00/min 82940 625 70798 8 65.00 mm[Hg] - Sitting 112.00 mm[Hg] - Sitting 98.60 Tympanic 80.00/ min 18.00/min 81369 626 42084 0 97.90 Tympanic 82.00/ min 18.00/min 09163 626 21728 8 62.00 mm[Hg] - Sitting 114.00 mm[Hg] - Sitting 07848 626 58889 4 66.00 mm[Hg] - Sitting 120.00 mm[Hg] - Sitting 98.10 Tympanic 78.00/ min 18.00/min 20614 627 63223 6 70.00 mm[Hg] - Sitting 122.00 mm[Hg] - Sitting 97.80 Tympanic 68.00/ min 18.00/min 43357 627 26139 8 143.00 [place] [address] 627 07770 9 68.00 mm[Hg] - Sitting 118.00 mm[Hg] - Sitting 98.00 Tympanic 72.00/ min 18.00/min 91647 627 25808 6 66.00 mm[Hg] - Lying Down 122.00 mm[Hg] - Lying Down 97.80 Tympanic 74.00/ min 18.00/min Immunizations Vaccine Date Status COVID-19 05/25/2020 Completed COVID-19 06/15/2020 Completed Influenza 05/12/2023 Completed (PCV20)Pneumococcal 05/12/2023 Completed
--- OUTSIDE RECORDS SUMMARY | 2024-04-08 21:57 | External Medical Summary | Continuity Of Care Document ---
Author Name Unknown Address [address] [address] Organization [facility] () Care Team Providers Care Marketing Performance Analyst Name Role Phone DO Woody Amy Primary Care Provider [phone] Allergies Allergy Reaction Start Date End Date Status LORAZEPAM Active PENICILLINS Hives, Rash Active Medications Medication Instructions Dosage Start Date End Date Status Order Date Drug Code Frequency Route of Admin Diagnosis Code Substitutions Allowed Aspercreme (lidocaine HCl) 4 % topical 4 % Topical Three times daily as needed For pain to feet and legs 4 % 11/08 Inactiv e 2023 72173 25391 0 Three times daily as needed Topica l False Citalopram 20 mg tablet [generic] 20 mg By Mouth Once daily For anxiety 20 mg 11/08 Inactiv e 2023 51875 76138 1 Once daily By Mouth False Dulcolax (bisacodyl) 10 mg rectal suppository 10 mg Rectal Daily as needed For constipation 10 mg 11/12 Inactiv e 2023 69526 03179 1 Daily as needed Rectal False Citalopram 20 mg tablet [generic] 20 mg By Mouth Once daily For anxiety 20 mg 11/12 Inactiv e 2023 12093 19611 1 Once daily By Mouth False Aspercreme (lidocaine HCl) 4 % topical 4 % Topical Three times daily as needed For pain to feet and legs 4 % 11/12 Inactiv e 2023 15870 66204 0 Three times daily as needed Topica l False Haloperidol lactate 2 mg/mL oral concentrate [generic] 0.5ml By Mouth Every 4 hours as needed For agitation 0.5ml 11/12 Inactiv e 2023 43923 10277 4 Every 4 hours as needed By Mouth False Haloperidol lactate 2 mg/mL oral concentrate [generic] 0.25ml By Mouth Every 4 days as needed For nausea/vomiti ng 0.25ml 11/12 Inactiv e 2023 36007 28398 4 Every 4 days as needed By Mouth False Ipratropium 0.5 mg-albutero l 3 mg (2.5 mg base)/3 mL nebulizatio n soln [generic] 3ml Inhalation Every 6 hours as needed via nebulization route For shortness of breath 3ml 11/12 Inactiv e 2023 96765 54987 3 Every 6 hours as needed Inhala tion False Lactulose 10 gram/15 mL (15 mL) oral solution [generic] 10 gram/15 m By Mouth Once daily For constipation 10 gram/15 m 11/12 Inactiv e 2023 89373 59700 0 Once daily By Mouth False Morphine concentrate 100 mg/5 mL (20 mg/mL) oral solution [generic] 0.25ml (5mg) By Mouth Every 2 hours as needed For shortness of breath or pain 0.25ml (5mg) 11/12 Inactiv e 2023 13711 37146 1 Every 2 hours as needed By Mouth False Pantoprazol e 40 mg tablet,fern yed release [generic] 40 mg By Mouth Once daily For GERD 40 mg 11/12 Inactiv e 2023 37149 16071 0 Once daily By Mouth False Pregabalin 25 mg capsule [generic] 25 mg By Mouth 3 times a day For pain 25 mg 11/12 Inactiv e 2023 90389 64233 9 3 times a day By Mouth False Senna 8.8 mg/5 mL oral syrup 5ml By Mouth Twice daily as needed For constipation 5ml 11/09 Inactiv e 2023 29576 94656 8 Twice daily as needed By Mouth False Tramadol 50 mg tablet [generic] 50 mg By Mouth Twice daily For pain 50 mg 11/12 Inactiv e 2023 76391 80692 0 Twice daily By Mouth False Tylenol Arthritis Pain 650 mg tablet,exte nded release 650 mg By Mouth 3 times a day For pain 650 mg 11/08 Inactiv e 2023 68724 87428 1 3 times a day By Mouth False Xanax 0.25 mg tablet 0.25 mg By Mouth Three times daily as needed For anxiety 0.25 mg 11/12 Inactiv e 2023 88985 54713 1 Three times daily as needed By Mouth False Zyprexa 2.5 mg tablet 2.5 mg By Mouth At bedtime For major depressive disorder 2.5 mg 11/12 Inactiv e 2023 06210 96132 0 At bedtime By Mouth False Tylenol 325 mg tablet 650 mg By Mouth 3 times a day For pain 650 mg 11/09 Inactiv e 2023 81446 58390 0 3 times a day By Mouth False Tylenol Extra Strength 500 mg tablet 500 mg By Mouth 3 times a day For pain 500 mg 11/12 Inactiv e 2023 94485 36040 6 3 times a day By Mouth False Senna 8.8 mg/5 mL oral syrup Twice daily administer senna 5mL For constipation 8.8 mg/5 mL 11/12 Inactiv e 2023 97426 75142 8 Twice daily By Mouth False Dulcolax (bisacodyl) 10 mg rectal suppository 10 mg Rectal Daily as needed For constipation 10 mg 2023 Active 2023 34502 77764 1 Daily as needed Rectal False Citalopram 20 mg tablet [generic] 20 mg By Mouth Once daily For anxiety 20 mg 2023 Active 2023 96737 44732 1 Once daily By Mouth False Aspercreme (lidocaine HCl) 4 % topical 4 % Topical Three times daily as needed For pain to feet and legs 4 % 2023 Active 2023 28716 93702 0 Three times daily as needed Topica l False Haloperidol lactate 2 mg/mL oral concentrate [generic] 0.5ml By Mouth Every 4 hours as needed For agitation 0.5ml 2023 Active 2023 31288 45599 4 Every 4 hours as needed By Mouth False Haloperidol lactate 2 mg/mL oral concentrate [generic] 0.25ml By Mouth Every 4 days as needed For nausea/vomiti ng 0.25ml 2023 Active 2023 27950 16707 4 Every 4 days as needed By Mouth False Ipratropium 0.5 mg-albutero l 3 mg (2.5 mg base)/3 mL nebulizatio n soln [generic] 3ml Inhalation Every 6 hours as needed via nebulization route For shortness of breath 3ml 2023 Active 2023 06075 51368 3 Every 6 hours as needed Inhala tion False Lactulose 10 gram/15 mL (15 mL) oral solution [generic] 10 gram/15 m By Mouth Once daily For constipation 10 gram/15 m 2023 Active 2023 94220 61039 0 Once daily By Mouth False Morphine concentrate 100 mg/5 mL (20 mg/mL) oral solution [generic] 0.25ml (5mg) By Mouth Every 2 hours as needed For shortness of breath or pain 0.25ml (5mg) 2023 Active 2023 44521 05084 1 Every 2 hours as needed By Mouth False Pantoprazol e 40 mg tablet,efrn yed release [generic] 40 mg By Mouth Once daily For GERD 40 mg 2023 Active 2023 99089 45896 0 Once daily By Mouth False Pregabalin 25 mg capsule [generic] 25 mg By Mouth 3 times a day For pain 25 mg 2023 Active 2023 09231 40478 9 3 times a day By Mouth False Tramadol 50 mg tablet [generic] 50 mg By Mouth Twice daily For pain 50 mg 2023 Active 2023 65876 53412 0 Twice daily By Mouth False Xanax 0.25 mg tablet 0.25 mg By Mouth Three times daily as needed For anxiety 0.25 mg 2023 Active 2023 99493 45759 1 Three times daily as needed By Mouth False Zyprexa 2.5 mg tablet 2.5 mg By Mouth At bedtime For major depressive disorder 2.5 mg 2023 Active 2023 50488 90038 0 At bedtime By Mouth False Tylenol Extra Strength 500 mg tablet 500 mg By Mouth 3 times a day For pain 500 mg 2023 Active 2023 20362 14098 6 3 times a day By Mouth False Senna 8.8 mg/5 mL oral syrup Twice daily administer senna 5mL For constipation 8.8 mg/5 mL 2023 Active 2023 58623 02025 8 Twice daily By Mouth False Dulcolax (bisacodyl) 10 mg rectal suppository 10 mg Rectal Daily as needed For constipation 10 mg 2023 Active 2023 88577 46748 1 Daily as needed Rectal False Citalopram 20 mg tablet [generic] 20 mg By Mouth Once daily For anxiety 20 mg 2023 Active 2023 55792 91417 1 Once daily By Mouth False Aspercreme (lidocaine HCl) 4 % topical 4 % Topical Three times daily as needed For pain to feet and legs 4 % 2023 Active 2023 47001 35892 0 Three times daily as needed Topica l False Haloperidol lactate 2 mg/mL oral concentrate [generic] 0.5ml By Mouth Every 4 hours as needed For agitation 0.5ml 2023 Active 2023 50116 18192 4 Every 4 hours as needed By Mouth False Haloperidol lactate 2 mg/mL oral concentrate [generic] 0.25ml By Mouth Every 4 days as needed For nausea/vomiti ng 0.25ml 2023 Active 2023 98491 57392 4 Every 4 days as needed By Mouth False Ipratropium 0.5 mg-albutero l 3 mg (2.5 mg base)/3 mL nebulizatio n soln [generic] 3ml Inhalation Every 6 hours as needed via nebulization route For shortness of breath 3ml 2023 Active 2023 86653 83800 3 Every 6 hours as needed Inhala tion False Lactulose 10 gram/15 mL (15 mL) oral solution [generic] 10 gram/15 m By Mouth Once daily For constipation 10 gram/15 m 2023 Active 2023 10734 25064 0 Once daily By Mouth False Morphine concentrate 100 mg/5 mL (20 mg/mL) oral solution [generic] 0.25ml (5mg) By Mouth Every 2 hours as needed For shortness of breath or pain 0.25ml (5mg) 2023 Active 2023 14156 07650 1 Every 2 hours as needed By Mouth False Pantoprazol e 40 mg tablet,fern yed release [generic] 40 mg By Mouth Once daily For GERD 40 mg 2023 Active 2023 15974 86904 0 Once daily By Mouth False Pregabalin 25 mg capsule [generic] 25 mg By Mouth 3 times a day For pain 25 mg 2023 Active 2023 22935 34255 9 3 times a day By Mouth False Tramadol 50 mg tablet [generic] 50 mg By Mouth Twice daily For pain 50 mg 2023 Active 2023 63973 18341 0 Twice daily By Mouth False Xanax 0.25 mg tablet 0.25 mg By Mouth Three times daily as needed For anxiety 0.25 mg 2023 Active 2023 48879 87464 1 Three times daily as needed By Mouth False Zyprexa 2.5 mg tablet 2.5 mg By Mouth At bedtime For major depressive disorder 2.5 mg 2023 Active 2023 94575 90056 0 At bedtime By Mouth False Tylenol Extra Strength 500 mg tablet 500 mg By Mouth 3 times a day For pain 500 mg 2023 Active 2023 73299 95099 6 3 times a day By Mouth False Senna 8.8 mg/5 mL oral syrup Twice daily administer senna 5mL For constipation 8.8 mg/5 mL 2023 Active 2023 51571 85374 8 Twice daily By Mouth False VITAL SIGNS Date Time Diastolic blood pressure Systolic blood pressure Body height Body weight Temperature SpO2 Blood Sugar Pulse Respirations 91372 101 64302 8 55.00 mm[Hg] - Lying Down 154.00 mm[Hg] - Lying Down 154.00 NI 98.10 Forehead Scan 94.00 % 76.00/ min 18.00/min Immunizations Vaccine Date Status COVID-19 05/25/2020 Completed COVID-19 06/15/2020 Completed Influenza 05/12/2023 Completed (PCV20)Pneumococcal 05/12/2023 Completed
--- OUTSIDE RECORDS SUMMARY | 2024-04-08 21:57 | External Medical Summary | Summary of Care ---
Author Name Unknown Organization [facility] Address [address] [place] [place] [address] Phone [phone] Care Team Providers Care Executive Sales Assistant Name Role Phone Lolis Tam DO Primary Care Provider [phone] Reason for Visit * Reason Onset Date Comments FYI 09/29/2023 Encounter Details Date Type Department Care Team (Late st Contact Info) Description [facility] [address] [facility] [address] [place] [address] Lolis Tam DO [address] [facility] [place] [address] FYI Allergies Active Allergy Reactions Criticality [...] as of this encounter (statuses as of 12/29/2023) Medications Medication Sig Dispensed Refills Start Date [...] 2022. 30 Tablet 3 02/25/2022 Active Nystatin 493616 UNIT/GM External Powder (Nystop) Apply topically to [...] or Pain, Severe. 20 Tablet 02/24/2022 Active Eliquis 5 MG Oral Tablet Take 1 Tablet by mouth in the morning and 1 Tablet before bedtime. 60 Tablet 09/27/2023 Active Pantoprazole Sodium 20 MG Oral Tablet [...] as of this encounter (statuses as of 12/29/2023) Active Problems Problem Noted Date Diagnosed Date [...] as of this encounter (statuses as of 12/29/2023) Social History Tobacco Use Types Packs/Day Years [...] (15 years old or older) No 01/09/20 Cognitive Status Response Date of Assessm ent Because of a physical, menta l, or emotional condition, do you have serious difficulty concentrating, remembering, or making decisions? (5 years old or older) No 01/08/2022 documented as of this encounter Miscellaneous Notes * Telephone Encounter - Yessy Hopson OSA - 09/29/2023 1:52 PM EDT Pt had Hosp D/C appt 09/30 but daughter called to cancel as pt is admitted to [facility] for sepsis. FYI documented in this encounter Plan of Treatment Scheduled Procedures Name Priority Associated Diagnoses Date/Ti me ENDOSCOPIC RETROGRADE CHOLANGIOPANCREATOGRAPHY (ERCP) DIAGNOSTIC Recall Choledocholithiasis Health Maintenance Due Date Last Done Comments DXA Scan 1942 Depression Screening 1954 Albumin/Creatinine Ratio 1960 Alpha-1 Antitrypsin 1960 O2 ASSESSMENT COMPLETED IN PAST YEAR FOR COPD 1960 DTaP,Tdap,and Td Vaccines (1 - Tdap) 1961 Zoster Vaccines (1 of 2) 1992 Adult Wellness Visit 2008 *COPD SEVERITY VERIFIED BY PFT 08/02/2021 *SPIROMETRY ONCE FOR ASTHMA-ADULT 04/09/2022 COVID-19 Vaccine ( - season) 2023 06/15/2020, 05/25/2020 Influenza Vaccine (FLU shot) (#1) 2024 02/19/2023, 02/21/2021, 03/29/2020 GFR 09/12/2024 09/13/2023, 1001/2022, 02/18/2022, Additional history exists Pneumococcal Vaccine: 65+ [...] Advance Directives occurred with: Patient Care Teams Executive Sales Assistant Relationship Specialty Start Date End Date Lolis Tam DO [address] [facility] [place] [id number] PCP - General Family Medicine 08/13/21 documented as of this encounter
--- OUTSIDE RECORDS SUMMARY | 2024-04-08 21:57 | External Medical Summary | Continuity Of Care Document ---
Author Name Unknown Address [address] [address] Organization [facility] () Care Team Providers Care Lawn Service Supervisor Name Role Phone DO Woody Amy Primary Care Provider [phone] Allergies Allergy Reaction Start Date End Date [...] Day 3 0.1 mL 03/21 Active 2023 70490 91445 0 1 time Intrad ermal False Tubersol 5 tub. unit/0.1 mL intradermal injection solution [Tuberculin PPD] 0.1mL Intradermal 1 time For PPD 2nd Step Give 2nd Step PPD Day 1 and Read results Day 3 (schedule 7 days after 1st READ) 0.1mL 03/31 Active 2023 29241 80388 0 1 time Intrad ermal False Aspercreme (lidocaine HCl) 4 % topical 4 % Topical Three times daily as needed For pain to feet and legs 4 % 11/08 Inactiv e 2023 44802 65215 0 Three times daily as needed Topica l False Citalopram 20 mg tablet [generic] 20 mg By Mouth Once daily For anxiety 20 mg 11/08 Inactiv e 2023 61775 21848 1 Once daily By Mouth False Dulcolax (bisacodyl) 10 mg rectal suppository 10 mg Rectal Daily as needed For constipation 10 mg 11/12 Inactiv e 2023 44182 40926 1 Daily as needed Rectal False Citalopram 20 mg tablet [generic] 20 mg By Mouth Once daily For anxiety 20 mg 11/12 Inactiv e 2023 91043 72263 1 Once daily By Mouth False Aspercreme (lidocaine HCl) 4 % topical 4 % Topical Three times daily as needed For pain to feet and legs 4 % 11/12 Inactiv e 2023 94790 04981 0 Three times daily as needed Topica l False Haloperidol lactate 2 mg/mL oral concentrate [generic] 0.5ml By Mouth Every 4 hours as needed For agitation 0.5ml 11/12 Inactiv e 2023 37212 03415 4 Every 4 hours as needed By Mouth False Haloperidol lactate 2 mg/mL oral concentrate [generic] 0.25ml By Mouth Every 4 days as needed For nausea/vomiti ng 0.25ml 11/12 Inactiv e 2023 22276 27405 4 Every 4 days as needed By Mouth False Ipratropium 0.5 mg-albutero l 3 mg (2.5 mg base)/3 mL nebulizatio n soln [generic] 3ml Inhalation Every 6 hours as needed via nebulization route For shortness of breath 3ml 11/12 Inactiv e 2023 71322 51285 3 Every 6 hours as needed Inhala tion False Lactulose 10 gram/15 mL (15 mL) oral solution [generic] 10 gram/15 m By Mouth Once daily For constipation 10 gram/15 m 11/12 Inactiv e 2023 10690 00184 0 Once daily By Mouth False Morphine concentrate 100 mg/5 mL (20 mg/mL) oral solution [generic] 0.25ml (5mg) By Mouth Every 2 hours as needed For shortness of breath or pain 0.25ml (5mg) 11/12 Inactiv e 2023 79872 08608 1 Every 2 hours as needed By Mouth False Pantoprazol e 40 mg tablet,fern yed release [generic] 40 mg By Mouth Once daily For GERD 40 mg 11/12 Inactiv e 2023 80040 64751 0 Once daily By Mouth False Pregabalin 25 mg capsule [generic] 25 mg By Mouth 3 times a day For pain 25 mg 11/12 Inactiv e 2023 41890 19471 9 3 times a day By Mouth False Senna 8.8 mg/5 mL oral syrup 5ml By Mouth Twice daily as needed For constipation 5ml 11/09 Inactiv e 2023 54951 47352 8 Twice daily as needed By Mouth False Tramadol 50 mg tablet [generic] 50 mg By Mouth Twice daily For pain 50 mg 11/12 Inactiv e 2023 35541 59030 0 Twice daily By Mouth False Tylenol Arthritis Pain 650 mg tablet,exte nded release 650 mg By Mouth 3 times a day For pain 650 mg 11/08 Inactiv e 2023 93663 48534 1 3 times a day By Mouth False Xanax 0.25 mg tablet 0.25 mg By Mouth Three times daily as needed For anxiety 0.25 mg 11/12 Inactiv e 2023 65489 04315 1 Three times daily as needed By Mouth False Zyprexa 2.5 mg tablet 2.5 mg By Mouth At bedtime For major depressive disorder 2.5 mg 11/12 Inactiv e 2023 91797 51738 0 At bedtime By Mouth False Tylenol 325 mg tablet 650 mg By Mouth 3 times a day For pain 650 mg 11/09 Inactiv e 2023 74186 06809 0 3 times a day By Mouth False Tylenol Extra Strength 500 mg tablet 500 mg By Mouth 3 times a day For pain 500 mg 11/12 Inactiv e 2023 49334 76215 6 3 times a day By Mouth False Senna 8.8 mg/5 mL oral syrup Twice daily administer senna 5mL For constipation 8.8 mg/5 mL 11/12 Inactiv e 2023 85220 46992 8 Twice daily By Mouth False Dulcolax (bisacodyl) 10 mg rectal suppository 10 mg Rectal Daily as needed For constipation 10 mg 2023 Active 2023 13593 84681 1 Daily as needed Rectal False Citalopram 20 mg tablet [generic] 20 mg By Mouth Once daily For anxiety 20 mg 2023 Active 2023 07311 66694 1 Once daily By Mouth False Aspercreme (lidocaine HCl) 4 % topical 4 % Topical Three times daily as needed For pain to feet and legs 4 % 2023 Active 2023 64345 12756 0 Three times daily as needed Topica l False Haloperidol lactate 2 mg/mL oral concentrate [generic] 0.5ml By Mouth Every 4 hours as needed For agitation 0.5ml 2023 Active 2023 05910 33387 4 Every 4 hours as needed By Mouth False Haloperidol lactate 2 mg/mL oral concentrate [generic] 0.25ml By Mouth Every 4 days as needed For nausea/vomiti ng 0.25ml 2023 Active 2023 13498 58685 4 Every 4 days as needed By Mouth False Ipratropium 0.5 mg-albutero l 3 mg (2.5 mg base)/3 mL nebulizatio n soln [generic] 3ml Inhalation Every 6 hours as needed via nebulization route For shortness of breath 3ml 2023 Active 2023 98851 89530 3 Every 6 hours as needed Inhala tion False Lactulose 10 gram/15 mL (15 mL) oral solution [generic] 10 gram/15 m By Mouth Once daily For constipation 10 gram/15 m 2023 Active 2023 59619 60122 0 Once daily By Mouth False Morphine concentrate 100 mg/5 mL (20 mg/mL) oral solution [generic] 0.25ml (5mg) By Mouth Every 2 hours as needed For shortness of breath or pain 0.25ml (5mg) 2023 Active 2023 90873 01731 1 Every 2 hours as needed By Mouth False Pantoprazol e 40 mg tablet,fern yed release [generic] 40 mg By Mouth Once daily For GERD 40 mg 2023 Active 2023 10304 71411 0 Once daily By Mouth False Pregabalin 25 mg capsule [generic] 25 mg By Mouth 3 times a day For pain 25 mg 2023 Active 2023 73112 79547 9 3 times a day By Mouth False Tramadol 50 mg tablet [generic] 50 mg By Mouth Twice daily For pain 50 mg 2023 Active 2023 76490 74394 0 Twice daily By Mouth False Xanax 0.25 mg tablet 0.25 mg By Mouth Three times daily as needed For anxiety 0.25 mg 2023 Active 2023 68987 12293 1 Three times daily as needed By Mouth False Zyprexa 2.5 mg tablet 2.5 mg By Mouth At bedtime For major depressive disorder 2.5 mg 2023 Active 2023 73170 65956 0 At bedtime By Mouth False Tylenol Extra Strength 500 mg tablet 500 mg By Mouth 3 times a day For pain 500 mg 2023 Active 2023 61202 25452 6 3 times a day By Mouth False Senna 8.8 mg/5 mL oral syrup Twice daily administer senna 5mL For constipation 8.8 mg/5 mL 2023 Active 2023 65167 25546 8 Twice daily By Mouth False Dulcolax (bisacodyl) 10 mg rectal suppository 10 mg Rectal Daily as needed For constipation 10 mg 2023 Active 2023 15363 75026 1 Daily as needed Rectal False Citalopram 20 mg tablet [generic] 20 mg By Mouth Once daily For anxiety 20 mg 2023 Active 2023 55491 34650 1 Once daily By Mouth False Aspercreme (lidocaine HCl) 4 % topical 4 % Topical Three times daily as needed For pain to feet and legs 4 % 2023 Active 2023 14207 63848 0 Three times daily as needed Topica l False Haloperidol lactate 2 mg/mL oral concentrate [generic] 0.5ml By Mouth Every 4 hours as needed For agitation 0.5ml 2023 Active 2023 88229 42141 4 Every 4 hours as needed By Mouth False Haloperidol lactate 2 mg/mL oral concentrate [generic] 0.25ml By Mouth Every 4 days as needed For nausea/vomiti ng 0.25ml 2023 Active 202321 05880 4 Every 4 days as needed By Mouth False Ipratropium 0.5 mg-albutero l 3 mg (2.5 mg base)/3 mL nebulizatio n soln [generic] 3ml Inhalation Every 6 hours as needed via nebulization route For shortness of breath 3ml 2023 Active 2023 51516 54690 3 Every 6 hours as needed Inhala tion False Lactulose 10 gram/15 mL (15 mL) oral solution [generic] 10 gram/15 m By Mouth Once daily For constipation 10 gram/15 m 2023 Active 2023 14572 61165 0 Once daily By Mouth False Morphine concentrate 100 mg/5 mL (20 mg/mL) oral solution [generic] 0.25ml (5mg) By Mouth Every 2 hours as needed For shortness of breath or pain 0.25ml (5mg) 2023 Active 2023 92001 95894 1 Every 2 hours as needed By Mouth False Pantoprazol e 40 mg tablet,fern yed release [generic] 40 mg By Mouth Once daily For GERD 40 mg 2023 Active 2023 36891 22452 0 Once daily By Mouth False Pregabalin 25 mg capsule [generic] 25 mg By Mouth 3 times a day For pain 25 mg 2023 Active 2023 26474 67044 9 3 times a day By Mouth False Tramadol 50 mg tablet [generic] 50 mg By Mouth Twice daily For pain 50 mg 2023 Active 2023 39473 15185 0 Twice daily By Mouth False Xanax 0.25 mg tablet 0.25 mg By Mouth Three times daily as needed For anxiety 0.25 mg 2023 Active 2023 17401 18508 1 Three times daily as needed By Mouth False Zyprexa 2.5 mg tablet 2.5 mg By Mouth At bedtime For major depressive disorder 2.5 mg 2023 Active 2023 29542 36463 0 At bedtime By Mouth False Tylenol Extra Strength 500 mg tablet 500 mg By Mouth 3 times a day For pain 500 mg 2023 Active 2023 42436 77669 6 3 times a day By Mouth False Senna 8.8 mg/5 mL oral syrup Twice daily administer senna 5mL For constipation 8.8 mg/5 mL 2023 Active 2023 32461 04121 8 Twice daily By Mouth False Dulcolax (bisacodyl) 10 mg rectal suppository 10 mg Rectal Daily as needed For constipation 10 mg 2023 Active 2023 28284 82933 1 Daily as needed Rectal False Citalopram 20 mg tablet [generic] 20 mg By Mouth Once daily For anxiety 20 mg 2023 Active 2023 41748 04513 1 Once daily By Mouth False Aspercreme (lidocaine HCl) 4 % topical 4 % Topical Three times daily as needed For pain to feet and legs 4 % 2023 Active 2023 00866 45462 0 Three times daily as needed Topica l False Haloperidol lactate 2 mg/mL oral concentrate [generic] 0.5ml By Mouth Every 4 hours as needed For agitation 0.5ml 2023 Active 2023 58026 73085 4 Every 4 hours as needed By Mouth False Haloperidol lactate 2 mg/mL oral concentrate [generic] 0.25ml By Mouth Every 4 days as needed For nausea/vomiti ng 0.25ml 2023 Active 2023 78031 80059 4 Every 4 days as needed By Mouth False Ipratropium 0.5 mg-albutero l 3 mg (2.5 mg base)/3 mL nebulizatio n soln [generic] 3ml Inhalation Every 6 hours as needed via nebulization route For shortness of breath 3ml 2023 Active 2023 91316 12632 3 Every 6 hours as needed Inhala tion False Morphine concentrate 100 mg/5 mL (20 mg/mL) oral solution [generic] 0.25ml (5mg) By Mouth Every 2 hours as needed For shortness of breath or pain 0.25ml (5mg) 2023 Active 2023 36012 67869 1 Every 2 hours as needed By Mouth False Pregabalin 75 mg capsule [generic] 75 mg By Mouth 3 times a day For pain 75 mg 2023 Active 2023 59465 27237 9 3 times a day By Mouth False Senna 8.8 mg/5 mL oral syrup 5ml By Mouth Twice daily as needed For constipation 5ml 2023 Active 2023 05078 31606 8 Twice daily as needed By Mouth False Tramadol 50 mg tablet [generic] 50 mg By Mouth Twice daily For pain 50 mg 2023 Active 2023 56428 60311 0 Twice daily By Mouth False Zyprexa 2.5 mg tablet 2.5 mg By Mouth At bedtime For major depressive disorder 2.5 mg 2023 Active 2023 22747 49565 0 At bedtime By Mouth False Tylenol Extra Strength 500 mg tablet 500 mg By Mouth 3 times a day For pain 500 mg 2023 Active 2023 99242 30580 6 3 times a day By Mouth False Trazodone 50 mg tablet [generic] ONE HALF TAB 25mg By Mouth At bedtime For sleep 25mg 2023 Active 2023 27015 46901 1 At bedtime By Mouth False Klonopin 0.5 mg tablet 0.5mg By Mouth At bedtime For sleep 0.5mg 2023 Active 2023 19302 03171 2 At bedtime By Mouth False VITAL SIGNS Date Time Diastolic blood pressure Systolic blood pressure Body height Body weight Temperature SpO2 Blood Sugar Pulse Respirations 101 99950 8 55.00 mm[Hg] - Lying Down 154.00 mm[Hg] - Lying Down 154.00 NI 98.10 Forehead Scan 94.00 % 76.00/ min 18.00/min 101 10136 2 64 NI Immunizations Vaccine Date Status COVID-19 05/25/2020 Completed COVID-19 06/15/2020 Completed Influenza 05/12/2023 Completed (PCV20)Pneumococcal 05/12/2023 Completed
--- OUTSIDE RECORDS SUMMARY | 2024-04-08 21:57 | External Medical Summary | Continuity Of Care Document ---
Author Name Unknown Address [address] [address] Organization [facility] () Care Team Providers Care Plateman Name Role Phone DO Woody Amy Primary Care Provider [phone] Allergies Allergy Reaction Start Date End Date Status LORAZEPAM Active PENICILLINS Hives, Rash Active Medications Medication Instructions Dosage Start Date End Date Status Order Date Drug Code Frequency Route of Admin Diagnosis Code Substitutions Allowed Aspercreme (lidocaine HCl) 4 % topical 4 % Topical Three times daily as needed For pain to feet and legs 4 % 11/08 Inactiv e 2023 56338 17749 0 Three times daily as needed Topica l False Citalopram 20 mg tablet [generic] 20 mg By Mouth Once daily For anxiety 20 mg 11/08 Inactiv e 2023 56081 62351 1 Once daily By Mouth False Dulcolax (bisacodyl) 10 mg rectal suppository 10 mg Rectal Daily as needed For constipation 10 mg 2023 Active 2023 77594 71641 1 Daily as needed Rectal False Citalopram 20 mg tablet [generic] 20 mg By Mouth Once daily For anxiety 20 mg 2023 Active 2023 64940 43477 1 Once daily By Mouth False Aspercreme (lidocaine HCl) 4 % topical 4 % Topical Three times daily as needed For pain to feet and legs 4 % 2023 Active 2023 51304 25087 0 Three times daily as needed Topica l False Haloperidol lactate 2 mg/mL oral concentrate [generic] 0.5ml By Mouth Every 4 hours as needed For agitation 0.5ml 2023 Active 2023 61337 62442 4 Every 4 hours as needed By Mouth False Haloperidol lactate 2 mg/mL oral concentrate [generic] 0.25ml By Mouth Every 4 days as needed For nausea/vomiti ng 0.25ml 2023 Active 2023 33580 65835 4 Every 4 days as needed By Mouth False Ipratropium 0.5 mg-albutero l 3 mg (2.5 mg base)/3 mL nebulizatio n soln [generic] 3ml Inhalation Every 6 hours as needed via nebulization route For shortness of breath 3ml 2023 Active 2023 31740 75365 3 Every 6 hours as needed Inhala tion False Lactulose 10 gram/15 mL (15 mL) oral solution [generic] 10 gram/15 m By Mouth Once daily For constipation 10 gram/15 m 2023 Active 2023 95302 77818 0 Once daily By Mouth False Morphine concentrate 100 mg/5 mL (20 mg/mL) oral solution [generic] 0.25ml (5mg) By Mouth Every 2 hours as needed For shortness of breath or pain 0.25ml (5mg) 2023 Active 2023 58130 93037 1 Every 2 hours as needed By Mouth False Pantoprazol e 40 mg tablet,fern yed release [generic] 40 mg By Mouth Once daily For GERD 40 mg 2023 Active 2023 15438 21325 0 Once daily By Mouth False Pregabalin 25 mg capsule [generic] 25 mg By Mouth 3 times a day For pain 25 mg 2023 Active 2023 83994 35629 9 3 times a day By Mouth False Senna 8.8 mg/5 mL oral syrup 5ml By Mouth Twice daily as needed For constipation 5ml 11/09 Inactiv e 2023 09505 61357 8 Twice daily as needed By Mouth False Tramadol 50 mg tablet [generic] 50 mg By Mouth Twice daily For pain 50 mg 2023 Active 2023 04329 77983 0 Twice daily By Mouth False Tylenol Arthritis Pain 650 mg tablet,exte nded release 650 mg By Mouth 3 times a day For pain 650 mg 11/08 Inactiv e 2023 22265 01469 1 3 times a day By Mouth False Xanax 0.25 mg tablet 0.25 mg By Mouth Three times daily as needed For anxiety 0.25 mg 2023 Active 2023 90419 77512 1 Three times daily as needed By Mouth False Zyprexa 2.5 mg tablet 2.5 mg By Mouth At bedtime For major depressive disorder 2.5 mg 2023 Active 20232 80626 0 At bedtime By Mouth False Tylenol 325 mg tablet 650 mg By Mouth 3 times a day For pain 650 mg 11/09 Inactiv e 2023 25502 25766 0 3 times a day By Mouth False Tylenol Extra Strength 500 mg tablet 500 mg By Mouth 3 times a day For pain 500 mg 2023 Active 2023 90417 60093 6 3 times a day By Mouth False Senna 8.8 mg/5 mL oral syrup Twice daily administer senna 5mL For constipation 8.8 mg/5 mL 2023 Active 2023 05639 76875 8 Twice daily By Mouth False Problems [...] Temperature SpO2 Blood Sugar Pulse Respirations 625 08851 9 65.00 mm[Hg] - Lying Down 112.00 mm[Hg] - Lying Down 98.60 Tympanic 94.00 % 80.00/ min 18.00/min 70625 625 32952 8 65.00 mm[Hg] - Sitting 112.00 mm[Hg] - Sitting 98.60 Tympanic 80.00/ min 18.00/min 33195 626 41546 0 97.90 Tympanic 82.00/ min 18.00/min 88826 626 24737 8 62.00 mm[Hg] - Sitting 114.00 mm[Hg] - Sitting 12949 626 33419 4 66.00 mm[Hg] - Sitting 120.00 mm[Hg] - Sitting 98.10 Tympanic 78.00/ min 18.00/min 07858 627 40031 6 70.00 mm[Hg] - Sitting 122.00 mm[Hg] - Sitting 97.80 Tympanic 68.00/ min 18.00/min 79887 627 34804 8 143.00 NI [address] 627 85156 9 68.00 mm[Hg] - Sitting 118.00 mm[Hg] - Sitting 98.00 Tympanic 72.00/ min 18.00/min 74163 627 55865 6 66.00 mm[Hg] - Lying Down 122.00 mm[Hg] - Lying Down 97.80 Tympanic 74.00/ min 18.00/min Immunizations Vaccine Date Status COVID-19 05/25/2020 Completed COVID-19 06/15/2020 Completed Influenza 05/12/2023 Completed (PCV20)Pneumococcal 05/12/2023 Completed
--- OUTSIDE RECORDS SUMMARY | 2024-04-08 21:57 | External Medical Summary | Continuity Of Care Document ---
Author Name Unknown Address [address] [address] Organization [facility] () Care Team Providers Care Medication Specialist Name Role Phone DO Woody Amy Primary Care Provider [phone] Allergies Allergy Reaction Start Date End Date Status LORAZEPAM Active PENICILLINS Hives, Rash Active Medications Medication Instructions Dosage Start Date End Date Status Order Date Drug Code Frequency Route of Admin Diagnosis Code Substitutions Allowed Aspercreme (lidocaine HCl) 4 % topical 4 % Topical Three times daily as needed For pain to feet and legs 4 % 11/08 Inactiv e 2023 23153 33766 0 Three times daily as needed Topica l False Citalopram 20 mg tablet [generic] 20 mg By Mouth Once daily For anxiety 20 mg 11/08 Inactiv e 2023 01946 97887 1 Once daily By Mouth False Dulcolax (bisacodyl) 10 mg rectal suppository 10 mg Rectal Daily as needed For constipation 10 mg 2023 Active 2023 93295 93745 1 Daily as needed Rectal False Citalopram 20 mg tablet [generic] 20 mg By Mouth Once daily For anxiety 20 mg 2023 Active 2023 76878 54918 1 Once daily By Mouth False Aspercreme (lidocaine HCl) 4 % topical 4 % Topical Three times daily as needed For pain to feet and legs 4 % 2023 Active 2023 65441 58439 0 Three times daily as needed Topica l False Haloperidol lactate 2 mg/mL oral concentrate [generic] 0.5ml By Mouth Every 4 hours as needed For agitation 0.5ml 2023 Active 2023 11727 27522 4 Every 4 hours as needed By Mouth False Haloperidol lactate 2 mg/mL oral concentrate [generic] 0.25ml By Mouth Every 4 days as needed For nausea/vomiti ng 0.25ml 2023 Active 2023 81514 59390 4 Every 4 days as needed By Mouth False Ipratropium 0.5 mg-albutero l 3 mg (2.5 mg base)/3 mL nebulizatio n soln [generic] 3ml Inhalation Every 6 hours as needed via nebulization route For shortness of breath 3ml 2023 Active 2023 88110 61612 3 Every 6 hours as needed Inhala tion False Lactulose 10 gram/15 mL (15 mL) oral solution [generic] 10 gram/15 m By Mouth Once daily For constipation 10 gram/15 m 2023 Active 2023 43332 75809 0 Once daily By Mouth False Morphine concentrate 100 mg/5 mL (20 mg/mL) oral solution [generic] 0.25ml (5mg) By Mouth Every 2 hours as needed For shortness of breath or pain 0.25ml (5mg) 2023 Active 2023 16407 54160 1 Every 2 hours as needed By Mouth False Pantoprazol e 40 mg tablet,fern yed release [generic] 40 mg By Mouth Once daily For GERD 40 mg 2023 Active 2023 85526 79954 0 Once daily By Mouth False Pregabalin 25 mg capsule [generic] 25 mg By Mouth 3 times a day For pain 25 mg 2023 Active 2023 26981 91183 9 3 times a day By Mouth False Senna 8.8 mg/5 mL oral syrup 5ml By Mouth Twice daily as needed For constipation 5ml 11/09 Inactiv e 2023 98662 29559 8 Twice daily as needed By Mouth False Tramadol 50 mg tablet [generic] 50 mg By Mouth Twice daily For pain 50 mg 2023 Active 2023 59954 72050 0 Twice daily By Mouth False Tylenol Arthritis Pain 650 mg tablet,exte nded release 650 mg By Mouth 3 times a day For pain 650 mg 11/08 Inactiv e 2023 39722 60050 1 3 times a day By Mouth False Xanax 0.25 mg tablet 0.25 mg By Mouth Three times daily as needed For anxiety 0.25 mg 2023 Active 2023 44459 74429 1 Three times daily as needed By Mouth False Zyprexa 2.5 mg tablet 2.5 mg By Mouth At bedtime For major depressive disorder 2.5 mg 2023 Active 20232 31337 0 At bedtime By Mouth False Tylenol 325 mg tablet 650 mg By Mouth 3 times a day For pain 650 mg 11/09 Inactiv e 2023 50597 21529 0 3 times a day By Mouth False Tylenol Extra Strength 500 mg tablet 500 mg By Mouth 3 times a day For pain 500 mg 2023 Active 2023 95326 68374 6 3 times a day By Mouth False Senna 8.8 mg/5 mL oral syrup Twice daily administer senna 5mL For constipation 8.8 mg/5 mL 2023 Active 2023 42625 72445 8 Twice daily By Mouth False Problems [...] Temperature SpO2 Blood Sugar Pulse Respirations 625 44348 9 65.00 mm[Hg] - Lying Down 112.00 mm[Hg] - Lying Down 98.60 Tympanic 94.00 % 80.00/ min 18.00/min 21470 625 58605 8 65.00 mm[Hg] - Sitting 112.00 mm[Hg] - Sitting 98.60 Tympanic 80.00/ min 18.00/min 77422 626 66336 0 97.90 Tympanic 82.00/ min 18.00/min 78407 626 43819 8 62.00 mm[Hg] - Sitting 114.00 mm[Hg] - Sitting 17822 626 13092 4 66.00 mm[Hg] - Sitting 120.00 mm[Hg] - Sitting 98.10 Tympanic 78.00/ min 18.00/min 14895 627 13523 6 70.00 mm[Hg] - Sitting 122.00 mm[Hg] - Sitting 97.80 Tympanic 68.00/ min 18.00/min 39550 627 01500 8 143.00 NI [address] 627 94650 9 68.00 mm[Hg] - Sitting 118.00 mm[Hg] - Sitting 98.00 Tympanic 72.00/ min 18.00/min Immunizations Vaccine Date Status COVID-19 05/25/2020 Completed COVID-19 06/15/2020 Completed Influenza 05/12/2023 Completed (PCV20)Pneumococcal 05/12/2023 Completed
--- OUTSIDE RECORDS SUMMARY | 2024-04-08 21:57 | External Medical Summary | Continuity Of Care Document ---
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 Name Role Phone DO Woody Amy Primary Care Provider [phone] Allergies Allergy Reaction Start Date End Date Status LORAZEPAM Active PENICILLINS Hives, Rash Active Medications Medication Instructions Dosage Start Date End Date Status Order Date Drug Code Frequency Route of Admin Diagnosis Code Substitutions Allowed Aspercreme (lidocaine HCl) 4 % topical 4 % Topical Three times daily as needed For pain to feet and legs 4 % 11/08 Inactiv e 2023 26960 09747 0 Three times daily as needed Topica l False Citalopram 20 mg tablet [generic] 20 mg By Mouth Once daily For anxiety 20 mg 11/08 Inactiv e 2023 34257 79764 1 Once daily By Mouth False Dulcolax (bisacodyl) 10 mg rectal suppository 10 mg Rectal Daily as needed For constipation 10 mg 11/12 Inactiv e 2023 45596 38210 1 Daily as needed Rectal False Citalopram 20 mg tablet [generic] 20 mg By Mouth Once daily For anxiety 20 mg 11/12 Inactiv e 2023 92337 00289 1 Once daily By Mouth False Aspercreme (lidocaine HCl) 4 % topical 4 % Topical Three times daily as needed For pain to feet and legs 4 % 11/12 Inactiv e 2023 99393 14357 0 Three times daily as needed Topica l False Haloperidol lactate 2 mg/mL oral concentrate [generic] 0.5ml By Mouth Every 4 hours as needed For agitation 0.5ml 11/12 Inactiv e 2023 04508 00664 4 Every 4 hours as needed By Mouth False Haloperidol lactate 2 mg/mL oral concentrate [generic] 0.25ml By Mouth Every 4 days as needed For nausea/vomiti ng 0.25ml 11/12 Inactiv e 2023 85544 81851 4 Every 4 days as needed By Mouth False Ipratropium 0.5 mg-albutero l 3 mg (2.5 mg base)/3 mL nebulizatio n soln [generic] 3ml Inhalation Every 6 hours as needed via nebulization route For shortness of breath 3ml 11/12 Inactiv e 2023 77227 83432 3 Every 6 hours as needed Inhala tion False Lactulose 10 gram/15 mL (15 mL) oral solution [generic] 10 gram/15 m By Mouth Once daily For constipation 10 gram/15 m 11/12 Inactiv e 2023 25748 38155 0 Once daily By Mouth False Morphine concentrate 100 mg/5 mL (20 mg/mL) oral solution [generic] 0.25ml (5mg) By Mouth Every 2 hours as needed For shortness of breath or pain 0.25ml (5mg) 11/12 Inactiv e 2023 72269 86698 1 Every 2 hours as needed By Mouth False Pantoprazol e 40 mg tablet,fern yed release [generic] 40 mg By Mouth Once daily For GERD 40 mg 11/12 Inactiv e 2023 66214 99641 0 Once daily By Mouth False Pregabalin 25 mg capsule [generic] 25 mg By Mouth 3 times a day For pain 25 mg 11/12 Inactiv e 2023 58929 14364 9 3 times a day By Mouth False Senna 8.8 mg/5 mL oral syrup 5ml By Mouth Twice daily as needed For constipation 5ml 11/09 Inactiv e 2023 58070 65120 8 Twice daily as needed By Mouth False Tramadol 50 mg tablet [generic] 50 mg By Mouth Twice daily For pain 50 mg 11/12 Inactiv e 2023 59613 46301 0 Twice daily By Mouth False Tylenol Arthritis Pain 650 mg tablet,exte nded release 650 mg By Mouth 3 times a day For pain 650 mg 11/08 Inactiv e 2023 91518 98293 1 3 times a day By Mouth False Xanax 0.25 mg tablet 0.25 mg By Mouth Three times daily as needed For anxiety 0.25 mg 11/12 Inactiv e 2023 35363 64960 1 Three times daily as needed By Mouth False Zyprexa 2.5 mg tablet 2.5 mg By Mouth At bedtime For major depressive disorder 2.5 mg 11/12 Inactiv e 2023 93270 85565 0 At bedtime By Mouth False Tylenol 325 mg tablet 650 mg By Mouth 3 times a day For pain 650 mg 11/09 Inactiv e 2023 55849 55369 0 3 times a day By Mouth False Tylenol Extra Strength 500 mg tablet 500 mg By Mouth 3 times a day For pain 500 mg 11/12 Inactiv e 2023 79890 24324 6 3 times a day By Mouth False Senna 8.8 mg/5 mL oral syrup Twice daily administer senna 5mL For constipation 8.8 mg/5 mL 11/12 Inactiv e 2023 37180 55001 8 Twice daily By Mouth False Dulcolax (bisacodyl) 10 mg rectal suppository 10 mg Rectal Daily as needed For constipation 10 mg 2023 Active 2023 65828 52523 1 Daily as needed Rectal False Citalopram 20 mg tablet [generic] 20 mg By Mouth Once daily For anxiety 20 mg 2023 Active 2023 56728 23264 1 Once daily By Mouth False Aspercreme (lidocaine HCl) 4 % topical 4 % Topical Three times daily as needed For pain to feet and legs 4 % 2023 Active 2023 23876 09274 0 Three times daily as needed Topica l False Haloperidol lactate 2 mg/mL oral concentrate [generic] 0.5ml By Mouth Every 4 hours as needed For agitation 0.5ml 2023 Active 2023 50997 61798 4 Every 4 hours as needed By Mouth False Haloperidol lactate 2 mg/mL oral concentrate [generic] 0.25ml By Mouth Every 4 days as needed For nausea/vomiti ng 0.25ml 2023 Active 2023 32437 09199 4 Every 4 days as needed By Mouth False Ipratropium 0.5 mg-albutero l 3 mg (2.5 mg base)/3 mL nebulizatio n soln [generic] 3ml Inhalation Every 6 hours as needed via nebulization route For shortness of breath 3ml 2023 Active 2023 85403 49668 3 Every 6 hours as needed Inhala tion False Lactulose 10 gram/15 mL (15 mL) oral solution [generic] 10 gram/15 m By Mouth Once daily For constipation 10 gram/15 m 2023 Active 2023 46673 31630 0 Once daily By Mouth False Morphine concentrate 100 mg/5 mL (20 mg/mL) oral solution [generic] 0.25ml (5mg) By Mouth Every 2 hours as needed For shortness of breath or pain 0.25ml (5mg) 2023 Active 2023 34724 45163 1 Every 2 hours as needed By Mouth False Pantoprazol e 40 mg tablet,fern yed release [generic] 40 mg By Mouth Once daily For GERD 40 mg 2023 Active 2023 30006 36742 0 Once daily By Mouth False Pregabalin 25 mg capsule [generic] 25 mg By Mouth 3 times a day For pain 25 mg 2023 Active 2023 81070 47854 9 3 times a day By Mouth False Tramadol 50 mg tablet [generic] 50 mg By Mouth Twice daily For pain 50 mg 2023 Active 2023 72671 51726 0 Twice daily By Mouth False Xanax 0.25 mg tablet 0.25 mg By Mouth Three times daily as needed For anxiety 0.25 mg 2023 Active 2023 89838 63087 1 Three times daily as needed By Mouth False Zyprexa 2.5 mg tablet 2.5 mg By Mouth At bedtime For major depressive disorder 2.5 mg 2023 Active 2023 84726 30209 0 At bedtime By Mouth False Tylenol Extra Strength 500 mg tablet 500 mg By Mouth 3 times a day For pain 500 mg 2023 Active 2023 81331 04720 6 3 times a day By Mouth False Senna 8.8 mg/5 mL oral syrup Twice daily administer senna 5mL For constipation 8.8 mg/5 mL 2023 Active 2023 33304 03231 8 Twice daily By Mouth False Dulcolax (bisacodyl) 10 mg rectal suppository 10 mg Rectal Daily as needed For constipation 10 mg 2023 Active 2023 85481 73466 1 Daily as needed Rectal False Citalopram 20 mg tablet [generic] 20 mg By Mouth Once daily For anxiety 20 mg 2023 Active 2023 33928 45687 1 Once daily By Mouth False Aspercreme (lidocaine HCl) 4 % topical 4 % Topical Three times daily as needed For pain to feet and legs 4 % 2023 Active 2023 81012 12993 0 Three times daily as needed Topica l False Haloperidol lactate 2 mg/mL oral concentrate [generic] 0.5ml By Mouth Every 4 hours as needed For agitation 0.5ml 2023 Active 2023 35673 46784 4 Every 4 hours as needed By Mouth False Haloperidol lactate 2 mg/mL oral concentrate [generic] 0.25ml By Mouth Every 4 days as needed For nausea/vomiti ng 0.25ml 2023 Active 2023 57463 87497 4 Every 4 days as needed By Mouth False Ipratropium 0.5 mg-albutero l 3 mg (2.5 mg base)/3 mL nebulizatio n soln [generic] 3ml Inhalation Every 6 hours as needed via nebulization route For shortness of breath 3ml 2023 Active 2023 09650 96080 3 Every 6 hours as needed Inhala tion False Lactulose 10 gram/15 mL (15 mL) oral solution [generic] 10 gram/15 m By Mouth Once daily For constipation 10 gram/15 m 2023 Active 2023 64595 48561 0 Once daily By Mouth False Morphine concentrate 100 mg/5 mL (20 mg/mL) oral solution [generic] 0.25ml (5mg) By Mouth Every 2 hours as needed For shortness of breath or pain 0.25ml (5mg) 2023 Active 2023 99406 89546 1 Every 2 hours as needed By Mouth False Pantoprazol e 40 mg tablet,fern yed release [generic] 40 mg By Mouth Once daily For GERD 40 mg 2023 Active 2023 56302 18567 0 Once daily By Mouth False Pregabalin 25 mg capsule [generic] 25 mg By Mouth 3 times a day For pain 25 mg 2023 Active 2023 12325 02444 9 3 times a day By Mouth False Tramadol 50 mg tablet [generic] 50 mg By Mouth Twice daily For pain 50 mg 2023 Active 2023 03854 89383 0 Twice daily By Mouth False Xanax 0.25 mg tablet 0.25 mg By Mouth Three times daily as needed For anxiety 0.25 mg 2023 Active 2023 31211 57073 1 Three times daily as needed By Mouth False Zyprexa 2.5 mg tablet 2.5 mg By Mouth At bedtime For major depressive disorder 2.5 mg 2023 Active 2023 74162 59723 0 At bedtime By Mouth False Tylenol Extra Strength 500 mg tablet 500 mg By Mouth 3 times a day For pain 500 mg 2023 Active 2023 01181 39402 6 3 times a day By Mouth False Senna 8.8 mg/5 mL oral syrup Twice daily administer senna 5mL For constipation 8.8 mg/5 mL 2023 Active 2023 12821 00220 8 Twice daily By Mouth False Dulcolax (bisacodyl) 10 mg rectal suppository 10 mg Rectal Daily as needed For constipation 10 mg 2023 Active 2023 30206 63675 1 Daily as needed Rectal False Citalopram 20 mg tablet [generic] 20 mg By Mouth Once daily For anxiety 20 mg 2023 Active 2023 81653 56827 1 Once daily By Mouth False Aspercreme (lidocaine HCl) 4 % topical 4 % Topical Three times daily as needed For pain to feet and legs 4 % 2023 Active 2023 18418 98427 0 Three times daily as needed Topica l False Haloperidol lactate 2 mg/mL oral concentrate [generic] 0.5ml By Mouth Every 4 hours as needed For agitation 0.5ml 2023 Active 2023 39631 36383 4 Every 4 hours as needed By Mouth False Haloperidol lactate 2 mg/mL oral concentrate [generic] 0.25ml By Mouth Every 4 days as needed For nausea/vomiti ng 0.25ml 2023 Active 2023 60485 78404 4 Every 4 days as needed By Mouth False Ipratropium 0.5 mg-albutero l 3 mg (2.5 mg base)/3 mL nebulizatio n soln [generic] 3ml Inhalation Every 6 hours as needed via nebulization route For shortness of breath 3ml 2023 Active 2023 71889 54093 3 Every 6 hours as needed Inhala tion False Morphine concentrate 100 mg/5 mL (20 mg/mL) oral solution [generic] 0.25ml (5mg) By Mouth Every 2 hours as needed For shortness of breath or pain 0.25ml (5mg) 2023 Active 2023 16535 23889 1 Every 2 hours as needed By Mouth False Pregabalin 25 mg capsule [generic] 25 mg By Mouth 3 times a day For pain 25 mg 2023 Active 2023 52503 94781 9 3 times a day By Mouth False Senna 8.8 mg/5 mL oral syrup 5ml By Mouth Twice daily as needed For constipation 5ml 2023 Active 2023 66947 52096 8 Twice daily as needed By Mouth False Tramadol 50 mg tablet [generic] 50 mg By Mouth Twice daily For pain 50 mg 2023 Active 2023 30906 03830 0 Twice daily By Mouth False Zyprexa 2.5 mg tablet 2.5 mg By Mouth At bedtime For major depressive disorder 2.5 mg 2023 Active 2023 34628 06103 0 At bedtime By Mouth False Tylenol Extra Strength 500 mg tablet 500 mg By Mouth 3 times a day For pain 500 mg 2023 Active 2023 87322 93274 6 3 times a day By Mouth False VITAL SIGNS Date Time Diastolic blood pressure Systolic blood pressure Body height Body weight Temperature SpO2 Blood Sugar Pulse Respirations 87241 101 52779 8 55.00 mm[Hg] - Lying Down 154.00 mm[Hg] - Lying Down 154.00 NI 98.10 Forehead Scan 94.00 % 76.00/ min 18.00/min 18395 101 52159 2 64 NI Immunizations Vaccine Date Status COVID-19 05/25/2020 Completed COVID-19 06/15/2020 Completed Influenza 05/12/2023 Completed (PCV20)Pneumococcal 05/12/2023 Completed
--- OUTSIDE RECORDS SUMMARY | 2024-04-08 21:57 | External Medical Summary | Continuity Of Care Document ---
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 Name Role Phone DO Woody Amy Primary Care Provider [phone] Allergies Allergy Reaction Start Date End Date Status LORAZEPAM Active PENICILLINS Hives, Rash Active Medications Medication Instructions Dosage Start Date End Date Status Order Date Drug Code Frequency Route of Admin Diagnosis Code Substitutions Allowed Aspercreme (lidocaine HCl) 4 % topical 4 % Topical Three times daily as needed For pain to feet and legs 4 % 11/08 Inactiv e 2023 43682 01237 0 Three times daily as needed Topica l False Citalopram 20 mg tablet [generic] 20 mg By Mouth Once daily For anxiety 20 mg 11/08 Inactiv e 2023 66089 12219 1 Once daily By Mouth False Dulcolax (bisacodyl) 10 mg rectal suppository 10 mg Rectal Daily as needed For constipation 10 mg 2023 Active 2023 26145 37721 1 Daily as needed Rectal False Citalopram 20 mg tablet [generic] 20 mg By Mouth Once daily For anxiety 20 mg 2023 Active 2023 54367 44199 1 Once daily By Mouth False Aspercreme (lidocaine HCl) 4 % topical 4 % Topical Three times daily as needed For pain to feet and legs 4 % 2023 Active 2023 50887 60615 0 Three times daily as needed Topica l False Haloperidol lactate 2 mg/mL oral concentrate [generic] 0.5ml By Mouth Every 4 hours as needed For agitation 0.5ml 2023 Active 2023 85359 91331 4 Every 4 hours as needed By Mouth False Haloperidol lactate 2 mg/mL oral concentrate [generic] 0.25ml By Mouth Every 4 days as needed For nausea/vomiti ng 0.25ml 2023 Active 2023 28472 41680 4 Every 4 days as needed By Mouth False Ipratropium 0.5 mg-albutero l 3 mg (2.5 mg base)/3 mL nebulizatio n soln [generic] 3ml Inhalation Every 6 hours as needed via nebulization route For shortness of breath 3ml 2023 Active 2023 04222 92836 3 Every 6 hours as needed Inhala tion False Lactulose 10 gram/15 mL (15 mL) oral solution [generic] 10 gram/15 m By Mouth Once daily For constipation 10 gram/15 m 2023 Active 2023 27029 62753 0 Once daily By Mouth False Morphine concentrate 100 mg/5 mL (20 mg/mL) oral solution [generic] 0.25ml (5mg) By Mouth Every 2 hours as needed For shortness of breath or pain 0.25ml (5mg) 2023 Active 2023 69052 97021 1 Every 2 hours as needed By Mouth False Pantoprazol e 40 mg tablet,fern yed release [generic] 40 mg By Mouth Once daily For GERD 40 mg 2023 Active 2023 71362 26288 0 Once daily By Mouth False Pregabalin 25 mg capsule [generic] 25 mg By Mouth 3 times a day For pain 25 mg 2023 Active 2023 01955 47458 9 3 times a day By Mouth False Senna 8.8 mg/5 mL oral syrup 5ml By Mouth Twice daily as needed For constipation 5ml 11/09 Inactiv e 2023 30445 09924 8 Twice daily as needed By Mouth False Tramadol 50 mg tablet [generic] 50 mg By Mouth Twice daily For pain 50 mg 2023 Active 2023 69694 46308 0 Twice daily By Mouth False Tylenol Arthritis Pain 650 mg tablet,exte nded release 650 mg By Mouth 3 times a day For pain 650 mg 11/08 Inactiv e 2023 04473 61543 1 3 times a day By Mouth False Xanax 0.25 mg tablet 0.25 mg By Mouth Three times daily as needed For anxiety 0.25 mg 2023 Active 2023 22466 00924 1 Three times daily as needed By Mouth False Zyprexa 2.5 mg tablet 2.5 mg By Mouth At bedtime For major depressive disorder 2.5 mg 2023 Active 20232 10321 0 At bedtime By Mouth False Tylenol 325 mg tablet 650 mg By Mouth 3 times a day For pain 650 mg 11/09 Inactiv e 2023 79289 82796 0 3 times a day By Mouth False Tylenol Extra Strength 500 mg tablet 500 mg By Mouth 3 times a day For pain 500 mg 2023 Active 2023 23387 26707 6 3 times a day By Mouth False Senna 8.8 mg/5 mL oral syrup Twice daily administer senna 5mL For constipation 8.8 mg/5 mL 2023 Active 2023 22665 09484 8 Twice daily By Mouth False Dulcolax (bisacodyl) 10 mg rectal suppository 10 mg Rectal Daily as needed For constipation 10 mg 2023 Active 2023 80959 20525 1 Daily as needed Rectal False Citalopram 20 mg tablet [generic] 20 mg By Mouth Once daily For anxiety 20 mg 2023 Active 2023 25719 01227 1 Once daily By Mouth False Aspercreme (lidocaine HCl) 4 % topical 4 % Topical Three times daily as needed For pain to feet and legs 4 % 2023 Active 2023 99576 95252 0 Three times daily as needed Topica l False Haloperidol lactate 2 mg/mL oral concentrate [generic] 0.5ml By Mouth Every 4 hours as needed For agitation 0.5ml 2023 Active 2023 31522 06652 4 Every 4 hours as needed By Mouth False Haloperidol lactate 2 mg/mL oral concentrate [generic] 0.25ml By Mouth Every 4 days as needed For nausea/vomiti ng 0.25ml 2023 Active 2023 34453 40693 4 Every 4 days as needed By Mouth False Ipratropium 0.5 mg-albutero l 3 mg (2.5 mg base)/3 mL nebulizatio n soln [generic] 3ml Inhalation Every 6 hours as needed via nebulization route For shortness of breath 3ml 2023 Active 2023 48267 16111 3 Every 6 hours as needed Inhala tion False Lactulose 10 gram/15 mL (15 mL) oral solution [generic] 10 gram/15 m By Mouth Once daily For constipation 10 gram/15 m 2023 Active 2023 82186 34894 0 Once daily By Mouth False Morphine concentrate 100 mg/5 mL (20 mg/mL) oral solution [generic] 0.25ml (5mg) By Mouth Every 2 hours as needed For shortness of breath or pain 0.25ml (5mg) 2023 Active 2023 33786 36198 1 Every 2 hours as needed By Mouth False Pantoprazol e 40 mg tablet,fern yed release [generic] 40 mg By Mouth Once daily For GERD 40 mg 2023 Active 2023 35451 86085 0 Once daily By Mouth False Pregabalin 25 mg capsule [generic] 25 mg By Mouth 3 times a day For pain 25 mg 2023 Active 2023 09737 26623 9 3 times a day By Mouth False Tramadol 50 mg tablet [generic] 50 mg By Mouth Twice daily For pain 50 mg 2023 Active 2023 64027 79471 0 Twice daily By Mouth False Xanax 0.25 mg tablet 0.25 mg By Mouth Three times daily as needed For anxiety 0.25 mg 2023 Active 20239 13998 1 Three times daily as needed By Mouth False Zyprexa 2.5 mg tablet 2.5 mg By Mouth At bedtime For major depressive disorder 2.5 mg 2023 Active 20232 98369 0 At bedtime By Mouth False Tylenol Extra Strength 500 mg tablet 500 mg By Mouth 3 times a day For pain 500 mg 2023 Active 2023 87074 27703 6 3 times a day By Mouth False Senna 8.8 mg/5 mL oral syrup Twice daily administer senna 5mL For constipation 8.8 mg/5 mL 2023 Active 2023 96917 21191 8 Twice daily By Mouth False Problems [...] weight Temperature SpO2 Blood Sugar Pulse Respirations 70464 625 90504 9 65.00 mm[Hg] - Lying Down 112.00 mm[Hg] - Lying Down 98.60 Tympanic 94.00 % 80.00/ min 18.00/min 63579 625 98344 8 65.00 mm[Hg] - Sitting 112.00 mm[Hg] - Sitting 98.60 Tympanic 80.00/ min 18.00/min 05456 626 36090 0 97.90 Tympanic 82.00/ min 18.00/min 30105 626 72472 8 62.00 mm[Hg] - Sitting 114.00 mm[Hg] - Sitting 82244 626 53776 4 66.00 mm[Hg] - Sitting 120.00 mm[Hg] - Sitting 98.10 Tympanic 78.00/ min 18.00/min 82258 627 45158 6 70.00 mm[Hg] - Sitting 122.00 mm[Hg] - Sitting 97.80 Tympanic 68.00/ min 18.00/min 37156 627 56404 8 143[place]00 [place] [address] 627 11424 9 68.00 mm[Hg] - Sitting 118.00 mm[Hg] - Sitting 98.00 Tympanic 72.00/ min 18.00/min 21840 627 56393 6 66.00 mm[Hg] - Lying Down 122.00 mm[Hg] - Lying Down 97.80 Tympanic 74.00/ min 18.00/min Immunizations Vaccine Date Status COVID-19 05/25/2020 Completed COVID-19 06/15/2020 Completed Influenza 05/12/2023 Completed (PCV20)Pneumococcal 05/12/2023 Completed
--- OUTSIDE RECORDS SUMMARY | 2024-04-08 21:57 | External Medical Summary | Continuity Of Care Document ---
Author Name Unknown Address [address] [address] Organization [facility] () Care Team Providers Care Inside Sales Advertising Executive Name Role Phone DO Woody Amy Primary Care Provider [phone] Allergies Allergy Reaction Start Date End Date Status LORAZEPAM Active PENICILLINS Hives, Rash Active Medications Medication Instructions Dosage Start Date End Date Status Order Date Drug Code Frequency Route of Admin Diagnosis Code Substitutions Allowed Aspercreme (lidocaine HCl) 4 % topical 4 % Topical Three times daily as needed For pain to feet and legs 4 % 11/08 Inactiv e 2023 38137 86108 0 Three times daily as needed Topica l False Citalopram 20 mg tablet [generic] 20 mg By Mouth Once daily For anxiety 20 mg 11/08 Inactiv e 2023 79665 90086 1 Once daily By Mouth False Dulcolax (bisacodyl) 10 mg rectal suppository 10 mg Rectal Daily as needed For constipation 10 mg 2023 Active 2023 00419 80269 1 Daily as needed Rectal False Citalopram 20 mg tablet [generic] 20 mg By Mouth Once daily For anxiety 20 mg 2023 Active 2023 11871 05861 1 Once daily By Mouth False Aspercreme (lidocaine HCl) 4 % topical 4 % Topical Three times daily as needed For pain to feet and legs 4 % 2023 Active 2023 69446 97433 0 Three times daily as needed Topica l False Haloperidol lactate 2 mg/mL oral concentrate [generic] 0.5ml By Mouth Every 4 hours as needed For agitation 0.5ml 2023 Active 2023 33808 75923 4 Every 4 hours as needed By Mouth False Haloperidol lactate 2 mg/mL oral concentrate [generic] 0.25ml By Mouth Every 4 days as needed For nausea/vomiti ng 0.25ml 2023 Active 2023 74199 77023 4 Every 4 days as needed By Mouth False Ipratropium 0.5 mg-albutero l 3 mg (2.5 mg base)/3 mL nebulizatio n soln [generic] 3ml Inhalation Every 6 hours as needed via nebulization route For shortness of breath 3ml 2023 Active 2023 19822 22996 3 Every 6 hours as needed Inhala tion False Lactulose 10 gram/15 mL (15 mL) oral solution [generic] 10 gram/15 m By Mouth Once daily For constipation 10 gram/15 m 2023 Active 2023 45747 16503 0 Once daily By Mouth False Morphine concentrate 100 mg/5 mL (20 mg/mL) oral solution [generic] 0.25ml (5mg) By Mouth Every 2 hours as needed For shortness of breath or pain 0.25ml (5mg) 2023 Active 2023 16493 14751 1 Every 2 hours as needed By Mouth False Pantoprazol e 40 mg tablet,fern yed release [generic] 40 mg By Mouth Once daily For GERD 40 mg 2023 Active 2023 30604 90030 0 Once daily By Mouth False Pregabalin 25 mg capsule [generic] 25 mg By Mouth 3 times a day For pain 25 mg 2023 Active 2023 81396 45952 9 3 times a day By Mouth False Senna 8.8 mg/5 mL oral syrup 5ml By Mouth Twice daily as needed For constipation 5ml 11/09 Inactiv e 2023 92416 02465 8 Twice daily as needed By Mouth False Tramadol 50 mg tablet [generic] 50 mg By Mouth Twice daily For pain 50 mg 2023 Active 2023 26448 24599 0 Twice daily By Mouth False Tylenol Arthritis Pain 650 mg tablet,exte nded release 650 mg By Mouth 3 times a day For pain 650 mg 11/08 Inactiv e 2023 54554 08281 1 3 times a day By Mouth False Xanax 0.25 mg tablet 0.25 mg By Mouth Three times daily as needed For anxiety 0.25 mg 2023 Active 2023 71023 56777 1 Three times daily as needed By Mouth False Zyprexa 2.5 mg tablet 2.5 mg By Mouth At bedtime For major depressive disorder 2.5 mg 2023 Active 20232 16924 0 At bedtime By Mouth False Tylenol 325 mg tablet 650 mg By Mouth 3 times a day For pain 650 mg 11/09 Inactiv e 2023 97392 39050 0 3 times a day By Mouth False Tylenol Extra Strength 500 mg tablet 500 mg By Mouth 3 times a day For pain 500 mg 2023 Active 2023 76108 21598 6 3 times a day By Mouth False Senna 8.8 mg/5 mL oral syrup Twice daily administer senna 5mL For constipation 8.8 mg/5 mL 2023 Active 2023 96065 20599 8 Twice daily By Mouth False Dulcolax (bisacodyl) 10 mg rectal suppository 10 mg Rectal Daily as needed For constipation 10 mg 2023 Active 2023 16286 15365 1 Daily as needed Rectal False Citalopram 20 mg tablet [generic] 20 mg By Mouth Once daily For anxiety 20 mg 2023 Active 2023 90265 36672 1 Once daily By Mouth False Aspercreme (lidocaine HCl) 4 % topical 4 % Topical Three times daily as needed For pain to feet and legs 4 % 2023 Active 2023 99690 15812 0 Three times daily as needed Topica l False Haloperidol lactate 2 mg/mL oral concentrate [generic] 0.5ml By Mouth Every 4 hours as needed For agitation 0.5ml 2023 Active 2023 83809 58479 4 Every 4 hours as needed By Mouth False Haloperidol lactate 2 mg/mL oral concentrate [generic] 0.25ml By Mouth Every 4 days as needed For nausea/vomiti ng 0.25ml 2023 Active 2023 78056 50620 4 Every 4 days as needed By Mouth False Ipratropium 0.5 mg-albutero l 3 mg (2.5 mg base)/3 mL nebulizatio n soln [generic] 3ml Inhalation Every 6 hours as needed via nebulization route For shortness of breath 3ml 2023 Active 2023 07964 24612 3 Every 6 hours as needed Inhala tion False Lactulose 10 gram/15 mL (15 mL) oral solution [generic] 10 gram/15 m By Mouth Once daily For constipation 10 gram/15 m 2023 Active 2023 96169 86885 0 Once daily By Mouth False Morphine concentrate 100 mg/5 mL (20 mg/mL) oral solution [generic] 0.25ml (5mg) By Mouth Every 2 hours as needed For shortness of breath or pain 0.25ml (5mg) 2023 Active 2023 21421 09587 1 Every 2 hours as needed By Mouth False Pantoprazol e 40 mg tablet,fern yed release [generic] 40 mg By Mouth Once daily For GERD 40 mg 2023 Active 2023 52552 56348 0 Once daily By Mouth False Pregabalin 25 mg capsule [generic] 25 mg By Mouth 3 times a day For pain 25 mg 2023 Active 2023 76481 01385 9 3 times a day By Mouth False Tramadol 50 mg tablet [generic] 50 mg By Mouth Twice daily For pain 50 mg 2023 Active 2023 54831 72922 0 Twice daily By Mouth False Xanax 0.25 mg tablet 0.25 mg By Mouth Three times daily as needed For anxiety 0.25 mg 2023 Active 2023 46243 11542 1 Three times daily as needed By Mouth False Zyprexa 2.5 mg tablet 2.5 mg By Mouth At bedtime For major depressive disorder 2.5 mg 2023 Active 2023 18284 27174 0 At bedtime By Mouth False Tylenol Extra Strength 500 mg tablet 500 mg By Mouth 3 times a day For pain 500 mg 2023 Active 2023 59991 25351 6 3 times a day By Mouth False Senna 8.8 mg/5 mL oral syrup Twice daily administer senna 5mL For constipation 8.8 mg/5 mL 2023 Active 2023 52371 00878 8 Twice daily By Mouth False Dulcolax (bisacodyl) 10 mg rectal suppository 10 mg Rectal Daily as needed For constipation 10 mg 2023 Active 2023 81920 15477 1 Daily as needed Rectal False Citalopram 20 mg tablet [generic] 20 mg By Mouth Once daily For anxiety 20 mg 2023 Active 2023 28977 70793 1 Once daily By Mouth False Aspercreme (lidocaine HCl) 4 % topical 4 % Topical Three times daily as needed For pain to feet and legs 4 % 2023 Active 2023 93315 37017 0 Three times daily as needed Topica l False Haloperidol lactate 2 mg/mL oral concentrate [generic] 0.5ml By Mouth Every 4 hours as needed For agitation 0.5ml 2023 Active 2023 99665 37261 4 Every 4 hours as needed By Mouth False Haloperidol lactate 2 mg/mL oral concentrate [generic] 0.25ml By Mouth Every 4 days as needed For nausea/vomiti ng 0.25ml 2023 Active 2023 78187 31240 4 Every 4 days as needed By Mouth False Ipratropium 0.5 mg-albutero l 3 mg (2.5 mg base)/3 mL nebulizatio n soln [generic] 3ml Inhalation Every 6 hours as needed via nebulization route For shortness of breath 3ml 2023 Active 2023 50308 04604 3 Every 6 hours as needed Inhala tion False Lactulose 10 gram/15 mL (15 mL) oral solution [generic] 10 gram/15 m By Mouth Once daily For constipation 10 gram/15 m 2023 Active 2023 12451 08056 0 Once daily By Mouth False Morphine concentrate 100 mg/5 mL (20 mg/mL) oral solution [generic] 0.25ml (5mg) By Mouth Every 2 hours as needed For shortness of breath or pain 0.25ml (5mg) 2023 Active 2023 46554 67345 1 Every 2 hours as needed By Mouth False Pantoprazol e 40 mg tablet,fern yed release [generic] 40 mg By Mouth Once daily For GERD 40 mg 2023 Active 2023 28646 54478 0 Once daily By Mouth False Pregabalin 25 mg capsule [generic] 25 mg By Mouth 3 times a day For pain 25 mg 2023 Active 2023 56962 42628 9 3 times a day By Mouth False Tramadol 50 mg tablet [generic] 50 mg By Mouth Twice daily For pain 50 mg 2023 Active 2023 90997 12959 0 Twice daily By Mouth False Xanax 0.25 mg tablet 0.25 mg By Mouth Three times daily as needed For anxiety 0.25 mg 2023 Active 2023 90448 19899 1 Three times daily as needed By Mouth False Zyprexa 2.5 mg tablet 2.5 mg By Mouth At bedtime For major depressive disorder 2.5 mg 2023 Active 2023 02272 83203 0 At bedtime By Mouth False Tylenol Extra Strength 500 mg tablet 500 mg By Mouth 3 times a day For pain 500 mg 2023 Active 2023 85978 40477 6 3 times a day By Mouth False Senna 8.8 mg/5 mL oral syrup Twice daily administer senna 5mL For constipation 8.8 mg/5 mL 2023 Active 2023 83442 15009 8 Twice daily By Mouth False Problems [...] weight Temperature SpO2 Blood Sugar Pulse Respirations 22556 625 83818 9 65.00 mm[Hg] - Lying Down 112.00 mm[Hg] - Lying Down 98.60 Tympanic 94.00 % 80.00/ min 18.00/min 54679 625 51725 8 65.00 mm[Hg] - Sitting 112.00 mm[Hg] - Sitting 98.60 Tympanic 80.00/ min 18.00/min 50831 626 89657 0 97.90 Tympanic 82.00/ min 18.00/min 36197 626 33119 8 62.00 mm[Hg] - Sitting 114.00 mm[Hg] - Sitting 25761 626 52038 4 66.00 mm[Hg] - Sitting 120.00 mm[Hg] - Sitting 98.10 Tympanic 78.00/ min 18.00/min 06445 627 95437 6 70.00 mm[Hg] - Sitting 122.00 mm[Hg] - Sitting 97.80 Tympanic 68.00/ min 18.00/min 77834 627 50483 8 143.00 [place] [address] 627 67296 9 68.00 mm[Hg] - Sitting 118.00 mm[Hg] - Sitting 98.00 Tympanic 72.00/ min 18.00/min 40342 627 14152 6 66.00 mm[Hg] - Lying Down 122.00 mm[Hg] - Lying Down 97.80 Tympanic 74.00/ min 18.00/min Immunizations Vaccine Date Status COVID-19 05/25/2020 Completed COVID-19 06/15/2020 Completed Influenza 05/12/2023 Completed (PCV20)Pneumococcal 05/12/2023 Completed
--- OUTSIDE RECORDS SUMMARY | 2024-04-08 21:58 | External Medical Summary | Continuity Of Care Document ---
Author Name Unknown Address [address] [address] Organization [facility] () Care Team Providers Care Intranet Support Name Role Phone DO Woody Amy Primary Care Provider [phone] Allergies Allergy Reaction Start Date End Date Status LORAZEPAM Active PENICILLINS Hives, Rash Active Medications Medication Instructions Dosage Start Date End Date Status Order Date Drug Code Frequency Route of Admin Diagnosis Code Substitutions Allowed Aspercreme (lidocaine HCl) 4 % topical 4 % Topical Three times daily as needed For pain to feet and legs 4 % 11/08 Inactiv e 2023 05613 73285 0 Three times daily as needed Topica l False Citalopram 20 mg tablet [generic] 20 mg By Mouth Once daily For anxiety 20 mg 11/08 Inactiv e 2023 16382 78526 1 Once daily By Mouth False Dulcolax (bisacodyl) 10 mg rectal suppository 10 mg Rectal Daily as needed For constipation 10 mg 2023 Active 2023 21210 33592 1 Daily as needed Rectal False Citalopram 20 mg tablet [generic] 20 mg By Mouth Once daily For anxiety 20 mg 2023 Active 2023 34395 45061 1 Once daily By Mouth False Aspercreme (lidocaine HCl) 4 % topical 4 % Topical Three times daily as needed For pain to feet and legs 4 % 2023 Active 2023 01645 98343 0 Three times daily as needed Topica l False Haloperidol lactate 2 mg/mL oral concentrate [generic] 0.5ml By Mouth Every 4 hours as needed For agitation 0.5ml 2023 Active 2023 40634 11025 4 Every 4 hours as needed By Mouth False Haloperidol lactate 2 mg/mL oral concentrate [generic] 0.25ml By Mouth Every 4 days as needed For nausea/vomiti ng 0.25ml 2023 Active 2023 14093 48498 4 Every 4 days as needed By Mouth False Ipratropium 0.5 mg-albutero l 3 mg (2.5 mg base)/3 mL nebulizatio n soln [generic] 3ml Inhalation Every 6 hours as needed via nebulization route For shortness of breath 3ml 2023 Active 2023 70997 19604 3 Every 6 hours as needed Inhala tion False Lactulose 10 gram/15 mL (15 mL) oral solution [generic] 10 gram/15 m By Mouth Once daily For constipation 10 gram/15 m 2023 Active 2023 69062 86128 0 Once daily By Mouth False Morphine concentrate 100 mg/5 mL (20 mg/mL) oral solution [generic] 0.25ml (5mg) By Mouth Every 2 hours as needed For shortness of breath or pain 0.25ml (5mg) 2023 Active 2023 28562 15545 1 Every 2 hours as needed By Mouth False Pantoprazol e 40 mg tablet,fern yed release [generic] 40 mg By Mouth Once daily For GERD 40 mg 2023 Active 2023 51780 87307 0 Once daily By Mouth False Pregabalin 25 mg capsule [generic] 25 mg By Mouth 3 times a day For pain 25 mg 2023 Active 2023 48132 12625 9 3 times a day By Mouth False Senna 8.8 mg/5 mL oral syrup 5ml By Mouth Twice daily as needed For constipation 5ml 2023 Active 2023 47050 03337 8 Twice daily as needed By Mouth False Tramadol 50 mg tablet [generic] 50 mg By Mouth Twice daily For pain 50 mg 2023 Active 2023 56821 98839 0 Twice daily By Mouth False Tylenol Arthritis Pain 650 mg tablet,exte nded release 650 mg By Mouth 3 times a day For pain 650 mg 11/08 Inactiv e 2023 23533 94087 1 3 times a day By Mouth False Xanax 0.25 mg tablet 0.25 mg By Mouth Three times daily as needed For anxiety 0.25 mg 2023 Active 2023 99990 98652 1 Three times daily as needed By Mouth False Zyprexa 2.5 mg tablet 2.5 mg By Mouth At bedtime For major depressive disorder 2.5 mg 2023 Active 2023 32671 83228 0 At bedtime By Mouth False Tylenol 325 mg tablet 650 mg By Mouth 3 times a day For pain 650 mg 2023 Active 2023 01953 83261 0 3 times a day By Mouth False VITAL SIGNS Date Time Diastolic blood pressure Systolic blood pressure Body height Body weight Temperature SpO2 Blood Sugar Pulse Respirations 625 60214 9 65.00 mm[Hg] - Lying Down 112.00 mm[Hg] - Lying Down 98.60 Tympanic 94.00 % 80.00/ min 18.00/min 625 31370 8 65.00 mm[Hg] - Sitting 112.00 mm[Hg] - Sitting 98.60 Tympanic 80.00/ min 18.00/min Immunizations Vaccine Date Status COVID-19 05/25/2020 Completed COVID-19 06/15/2020 Completed
--- OUTSIDE RECORDS SUMMARY | 2024-04-08 21:58 | External Medical Summary | Continuity Of Care Document ---
Author Name Unknown Address [address] [address] Organization [facility] () Care Team Providers Care Occupational Therapy Teacher Name Role Phone DO Woody Amy Primary Care Provider [phone] Allergies Allergy Reaction Start Date End Date Status LORAZEPAM Active PENICILLINS Hives, Rash Active Medications Medication Instructions Dosage Start Date End Date Status Order Date Drug Code Frequency Route of Admin Diagnosis Code Substitutions Allowed Aspercreme (lidocaine HCl) 4 % topical 4 % Topical Three times daily as needed For pain to feet and legs 4 % 11/08 Inactiv e 2023 37761 19011 0 Three times daily as needed Topica l False Citalopram 20 mg tablet [generic] 20 mg By Mouth Once daily For anxiety 20 mg 11/08 Inactiv e 2023 10597 86258 1 Once daily By Mouth False Dulcolax (bisacodyl) 10 mg rectal suppository 10 mg Rectal Daily as needed For constipation 10 mg 2023 Active 2023 28561 51027 1 Daily as needed Rectal False Citalopram 20 mg tablet [generic] 20 mg By Mouth Once daily For anxiety 20 mg 2023 Active 2023 00771 83448 1 Once daily By Mouth False Aspercreme (lidocaine HCl) 4 % topical 4 % Topical Three times daily as needed For pain to feet and legs 4 % 2023 Active 2023 13422 05592 0 Three times daily as needed Topica l False Haloperidol lactate 2 mg/mL oral concentrate [generic] 0.5ml By Mouth Every 4 hours as needed For agitation 0.5ml 2023 Active 2023 62295 09224 4 Every 4 hours as needed By Mouth False Haloperidol lactate 2 mg/mL oral concentrate [generic] 0.25ml By Mouth Every 4 days as needed For nausea/vomiti ng 0.25ml 2023 Active 2023 76075 09344 4 Every 4 days as needed By Mouth False Ipratropium 0.5 mg-albutero l 3 mg (2.5 mg base)/3 mL nebulizatio n soln [generic] 3ml Inhalation Every 6 hours as needed via nebulization route For shortness of breath 3ml 2023 Active 2023 70605 34786 3 Every 6 hours as needed Inhala tion False Lactulose 10 gram/15 mL (15 mL) oral solution [generic] 10 gram/15 m By Mouth Once daily For constipation 10 gram/15 m 2023 Active 2023 66064 08853 0 Once daily By Mouth False Morphine concentrate 100 mg/5 mL (20 mg/mL) oral solution [generic] 0.25ml (5mg) By Mouth Every 2 hours as needed For shortness of breath or pain 0.25ml (5mg) 2023 Active 2023 21790 57848 1 Every 2 hours as needed By Mouth False Pantoprazol e 40 mg tablet,fern yed release [generic] 40 mg By Mouth Once daily For GERD 40 mg 2023 Active 2023 32276 15694 0 Once daily By Mouth False Pregabalin 25 mg capsule [generic] 25 mg By Mouth 3 times a day For pain 25 mg 2023 Active 2023 01972 68846 9 3 times a day By Mouth False Senna 8.8 mg/5 mL oral syrup 5ml By Mouth Twice daily as needed For constipation 5ml 2023 Active 2023 81145 24227 8 Twice daily as needed By Mouth False Tramadol 50 mg tablet [generic] 50 mg By Mouth Twice daily For pain 50 mg 2023 Active 2023 78909 68936 0 Twice daily By Mouth False Tylenol Arthritis Pain 650 mg tablet,exte nded release 650 mg By Mouth 3 times a day For pain 650 mg 11/08 Inactiv e 2023 62916 59149 1 3 times a day By Mouth False Xanax 0.25 mg tablet 0.25 mg By Mouth Three times daily as needed For anxiety 0.25 mg 2023 Active 2023 09863 63968 1 Three times daily as needed By Mouth False Zyprexa 2.5 mg tablet 2.5 mg By Mouth At bedtime For major depressive disorder 2.5 mg 2023 Active 2023 28048 51143 0 At bedtime By Mouth False Tylenol 325 mg tablet 650 mg By Mouth 3 times a day For pain 650 mg 2023 Active 2023 48573 63715 0 3 times a day By Mouth False VITAL SIGNS Date Time Diastolic blood pressure Systolic blood pressure Body height Body weight Temperature SpO2 Blood Sugar Pulse Respirations 625 60388 9 65.00 mm[Hg] - Lying Down 112.00 mm[Hg] - Lying Down 98.60 Tympanic 94.00 % 80.00/ min 18.00/min 625 70616 8 65.00 mm[Hg] - Sitting 112.00 mm[Hg] - Sitting 98.60 Tympanic 80.00/ min 18.00/min Immunizations Vaccine Date Status COVID-19 05/25/2020 Completed COVID-19 06/15/2020 Completed Influenza 05/12/2023 Completed (PCV20)Pneumococcal 05/12/2023 Completed
--- OUTSIDE RECORDS SUMMARY | 2024-04-08 21:58 | External Medical Summary | Continuity Of Care Document ---
Author Name Unknown Address [address] [address] Organization [facility] () Care Team Providers Care Emissions Testing And Repair Technician Name Role Phone DO Woody Amy Primary Care Provider [phone] Allergies Allergy Reaction Start Date End Date Status LORAZEPAM Active PENICILLINS Hives, Rash Active Medications Medication Instructions Dosage Start Date End Date Status Order Date Drug Code Frequency Route of Admin Diagnosis Code Substitutions Allowed Aspercreme (lidocaine HCl) 4 % topical 4 % Topical Three times daily as needed For pain to feet and legs 4 % 11/08 Inactiv e 2023 97722 99470 0 Three times daily as needed Topica l False Citalopram 20 mg tablet [generic] 20 mg By Mouth Once daily For anxiety 20 mg 11/08 Inactiv e 2023 56249 59749 1 Once daily By Mouth False Dulcolax (bisacodyl) 10 mg rectal suppository 10 mg Rectal Daily as needed For constipation 10 mg 2023 Active 2023 71467 43655 1 Daily as needed Rectal False Citalopram 20 mg tablet [generic] 20 mg By Mouth Once daily For anxiety 20 mg 2023 Active 2023 48782 22361 1 Once daily By Mouth False Aspercreme (lidocaine HCl) 4 % topical 4 % Topical Three times daily as needed For pain to feet and legs 4 % 2023 Active 2023 52886 84048 0 Three times daily as needed Topica l False Haloperidol lactate 2 mg/mL oral concentrate [generic] 0.5ml By Mouth Every 4 hours as needed For agitation 0.5ml 2023 Active 2023 63468 85663 4 Every 4 hours as needed By Mouth False Haloperidol lactate 2 mg/mL oral concentrate [generic] 0.25ml By Mouth Every 4 days as needed For nausea/vomiti ng 0.25ml 2023 Active 2023 52285 88746 4 Every 4 days as needed By Mouth False Ipratropium 0.5 mg-albutero l 3 mg (2.5 mg base)/3 mL nebulizatio n soln [generic] 3ml Inhalation Every 6 hours as needed via nebulization route For shortness of breath 3ml 2023 Active 2023 90385 25319 3 Every 6 hours as needed Inhala tion False Lactulose 10 gram/15 mL (15 mL) oral solution [generic] 10 gram/15 m By Mouth Once daily For constipation 10 gram/15 m 2023 Active 2023 92552 67386 0 Once daily By Mouth False Morphine concentrate 100 mg/5 mL (20 mg/mL) oral solution [generic] 0.25ml (5mg) By Mouth Every 2 hours as needed For shortness of breath or pain 0.25ml (5mg) 2023 Active 2023 21031 52477 1 Every 2 hours as needed By Mouth False Pantoprazol e 40 mg tablet,fern yed release [generic] 40 mg By Mouth Once daily For GERD 40 mg 2023 Active 2023 22196 47817 0 Once daily By Mouth False Pregabalin 25 mg capsule [generic] 25 mg By Mouth 3 times a day For pain 25 mg 2023 Active 2023 81582 29796 9 3 times a day By Mouth False Senna 8.8 mg/5 mL oral syrup 5ml By Mouth Twice daily as needed For constipation 5ml 11/09 Inactiv e 2023 45612 37981 8 Twice daily as needed By Mouth False Tramadol 50 mg tablet [generic] 50 mg By Mouth Twice daily For pain 50 mg 2023 Active 2023 07743 69402 0 Twice daily By Mouth False Tylenol Arthritis Pain 650 mg tablet,exte nded release 650 mg By Mouth 3 times a day For pain 650 mg 11/08 Inactiv e 2023 74720 55879 1 3 times a day By Mouth False Xanax 0.25 mg tablet 0.25 mg By Mouth Three times daily as needed For anxiety 0.25 mg 2023 Active 2023 06629 55490 1 Three times daily as needed By Mouth False Zyprexa 2.5 mg tablet 2.5 mg By Mouth At bedtime For major depressive disorder 2.5 mg 2023 Active 20232 48228 0 At bedtime By Mouth False Tylenol 325 mg tablet 650 mg By Mouth 3 times a day For pain 650 mg 11/09 Inactiv e 2023 78744 99765 0 3 times a day By Mouth False Tylenol Extra Strength 500 mg tablet 500 mg By Mouth 3 times a day For pain 500 mg 2023 Active 2023 64679 51573 6 3 times a day By Mouth False Senna 8.8 mg/5 mL oral syrup Twice daily administer senna 5mL For constipation 8.8 mg/5 mL 2023 Active 2023 60992 75481 8 Twice daily By Mouth False Problems [...] Temperature SpO2 Blood Sugar Pulse Respirations 625 03953 9 65.00 mm[Hg] - Lying Down 112.00 mm[Hg] - Lying Down 98.60 Tympanic 94.00 % 80.00/ min 18.00/min 90850 625 43143 8 65.00 mm[Hg] - Sitting 112.00 mm[Hg] - Sitting 98.60 Tympanic 80.00/ min 18.00/min 74953 626 12721 0 97.90 Tympanic 82.00/ min 18.00/min 34079 626 52445 8 62.00 mm[Hg] - Sitting 114.00 mm[Hg] - Sitting 25968 626 31670 4 66.00 mm[Hg] - Sitting 120.00 mm[Hg] - Sitting 98.10 Tympanic 78.00/ min 18.00/min Immunizations Vaccine Date Status COVID-19 05/25/2020 Completed COVID-19 06/15/2020 Completed Influenza 05/12/2023 Completed (PCV20)Pneumococcal 05/12/2023 Completed
--- OUTSIDE RECORDS SUMMARY | 2024-04-08 21:58 | External Medical Summary | Continuity Of Care Document ---
Author Name Unknown Address [address] [address] Organization [facility] () Care Team Providers Care Audiology Technician Name Role Phone DO Woody Amy Primary Care Provider [phone] Allergies Allergy Reaction Start Date End Date Status LORAZEPAM Active PENICILLINS Hives, Rash Active Medications Medication Instructions Dosage Start Date End Date Status Order Date Drug Code Frequency Route of Admin Diagnosis Code Substitutions Allowed Aspercreme (lidocaine HCl) 4 % topical 4 % Topical Three times daily as needed For pain to feet and legs 4 % 11/08 Inactiv e 2023 74906 54785 0 Three times daily as needed Topica l False Citalopram 20 mg tablet [generic] 20 mg By Mouth Once daily For anxiety 20 mg 11/08 Inactiv e 2023 47273 47539 1 Once daily By Mouth False Dulcolax (bisacodyl) 10 mg rectal suppository 10 mg Rectal Daily as needed For constipation 10 mg 2023 Active 2023 79908 56551 1 Daily as needed Rectal False Citalopram 20 mg tablet [generic] 20 mg By Mouth Once daily For anxiety 20 mg 2023 Active 2023 66076 67109 1 Once daily By Mouth False Aspercreme (lidocaine HCl) 4 % topical 4 % Topical Three times daily as needed For pain to feet and legs 4 % 2023 Active 2023 22404 16452 0 Three times daily as needed Topica l False Haloperidol lactate 2 mg/mL oral concentrate [generic] 0.5ml By Mouth Every 4 hours as needed For agitation 0.5ml 2023 Active 2023 92484 50314 4 Every 4 hours as needed By Mouth False Haloperidol lactate 2 mg/mL oral concentrate [generic] 0.25ml By Mouth Every 4 days as needed For nausea/vomiti ng 0.25ml 2023 Active 2023 98323 84310 4 Every 4 days as needed By Mouth False Ipratropium 0.5 mg-albutero l 3 mg (2.5 mg base)/3 mL nebulizatio n soln [generic] 3ml Inhalation Every 6 hours as needed via nebulization route For shortness of breath 3ml 2023 Active 2023 86548 13290 3 Every 6 hours as needed Inhala tion False Lactulose 10 gram/15 mL (15 mL) oral solution [generic] 10 gram/15 m By Mouth Once daily For constipation 10 gram/15 m 2023 Active 2023 01636 52886 0 Once daily By Mouth False Morphine concentrate 100 mg/5 mL (20 mg/mL) oral solution [generic] 0.25ml (5mg) By Mouth Every 2 hours as needed For shortness of breath or pain 0.25ml (5mg) 2023 Active 2023 82321 68715 1 Every 2 hours as needed By Mouth False Pantoprazol e 40 mg tablet,fern yed release [generic] 40 mg By Mouth Once daily For GERD 40 mg 2023 Active 2023 49538 85824 0 Once daily By Mouth False Pregabalin 25 mg capsule [generic] 25 mg By Mouth 3 times a day For pain 25 mg 2023 Active 2023 73222 76080 9 3 times a day By Mouth False Senna 8.8 mg/5 mL oral syrup 5ml By Mouth Twice daily as needed For constipation 5ml 2023 Active 2023 43389 31441 8 Twice daily as needed By Mouth False Tramadol 50 mg tablet [generic] 50 mg By Mouth Twice daily For pain 50 mg 2023 Active 2023 11236 38186 0 Twice daily By Mouth False Tylenol Arthritis Pain 650 mg tablet,exte nded release 650 mg By Mouth 3 times a day For pain 650 mg 11/08 Inactiv e 2023 15057 93769 1 3 times a day By Mouth False Xanax 0.25 mg tablet 0.25 mg By Mouth Three times daily as needed For anxiety 0.25 mg 2023 Active 2023 51999 30011 1 Three times daily as needed By Mouth False Zyprexa 2.5 mg tablet 2.5 mg By Mouth At bedtime For major depressive disorder 2.5 mg 2023 Active 2023 00705 07944 0 At bedtime By Mouth False Tylenol 325 mg tablet 650 mg By Mouth 3 times a day For pain 650 mg 2023 Active 2023 33134 83989 0 3 times a day By Mouth False VITAL SIGNS Date Time Diastolic blood pressure Systolic blood pressure Body height Body weight Temperature SpO2 Blood Sugar Pulse Respirations 625 32568 9 65.00 mm[Hg] - Lying Down 112.00 mm[Hg] - Lying Down 98.60 Tympanic 94.00 % 80.00/ min 18.00/min 625 88513 8 65.00 mm[Hg] - Sitting 112.00 mm[Hg] - Sitting 98.60 Tympanic 80.00/ min 18.00/min Immunizations Vaccine Date Status COVID-19 05/25/2020 Completed COVID-19 06/15/2020 Completed
--- OUTSIDE RECORDS SUMMARY | 2024-04-08 21:58 | External Medical Summary | Continuity Of Care Document ---
Author Name Unknown Address [address] [address] Organization [facility] () Care Team Providers Care Inside Barrel Polisher Name Role Phone DO Woody Amy Primary Care Provider [phone] Allergies Allergy Reaction Start Date End Date Status LORAZEPAM Active PENICILLINS Hives, Rash Active Medications Medication Instructions Dosage Start Date End Date Status Order Date Drug Code Frequency Route of Admin Diagnosis Code Substitutions Allowed Aspercreme (lidocaine HCl) 4 % topical 4 % Topical Three times daily as needed For pain to feet and legs 4 % 11/08 Inactiv e 2023 07848 61398 0 Three times daily as needed Topica l False Citalopram 20 mg tablet [generic] 20 mg By Mouth Once daily For anxiety 20 mg 11/08 Inactiv e 2023 90891 54540 1 Once daily By Mouth False Dulcolax (bisacodyl) 10 mg rectal suppository 10 mg Rectal Daily as needed For constipation 10 mg 2023 Active 2023 22212 65095 1 Daily as needed Rectal False Citalopram 20 mg tablet [generic] 20 mg By Mouth Once daily For anxiety 20 mg 2023 Active 2023 91345 60383 1 Once daily By Mouth False Aspercreme (lidocaine HCl) 4 % topical 4 % Topical Three times daily as needed For pain to feet and legs 4 % 2023 Active 2023 53184 16446 0 Three times daily as needed Topica l False Haloperidol lactate 2 mg/mL oral concentrate [generic] 0.5ml By Mouth Every 4 hours as needed For agitation 0.5ml 2023 Active 2023 82377 15442 4 Every 4 hours as needed By Mouth False Haloperidol lactate 2 mg/mL oral concentrate [generic] 0.25ml By Mouth Every 4 days as needed For nausea/vomiti ng 0.25ml 2023 Active 2023 98836 93463 4 Every 4 days as needed By Mouth False Ipratropium 0.5 mg-albutero l 3 mg (2.5 mg base)/3 mL nebulizatio n soln [generic] 3ml Inhalation Every 6 hours as needed via nebulization route For shortness of breath 3ml 2023 Active 2023 09516 75399 3 Every 6 hours as needed Inhala tion False Lactulose 10 gram/15 mL (15 mL) oral solution [generic] 10 gram/15 m By Mouth Once daily For constipation 10 gram/15 m 2023 Active 2023 61455 49176 0 Once daily By Mouth False Morphine concentrate 100 mg/5 mL (20 mg/mL) oral solution [generic] 0.25ml (5mg) By Mouth Every 2 hours as needed For shortness of breath or pain 0.25ml (5mg) 2023 Active 2023 86066 85334 1 Every 2 hours as needed By Mouth False Pantoprazol e 40 mg tablet,fern yed release [generic] 40 mg By Mouth Once daily For GERD 40 mg 2023 Active 2023 04705 80711 0 Once daily By Mouth False Pregabalin 25 mg capsule [generic] 25 mg By Mouth 3 times a day For pain 25 mg 2023 Active 2023 16142 97021 9 3 times a day By Mouth False Senna 8.8 mg/5 mL oral syrup 5ml By Mouth Twice daily as needed For constipation 5ml 2023 Active 2023 68598 19683 8 Twice daily as needed By Mouth False Tramadol 50 mg tablet [generic] 50 mg By Mouth Twice daily For pain 50 mg 2023 Active 2023 53653 13100 0 Twice daily By Mouth False Tylenol Arthritis Pain 650 mg tablet,exte nded release 650 mg By Mouth 3 times a day For pain 650 mg 11/08 Inactiv e 2023 68341 56384 1 3 times a day By Mouth False Xanax 0.25 mg tablet 0.25 mg By Mouth Three times daily as needed For anxiety 0.25 mg 2023 Active 2023 38171 93012 1 Three times daily as needed By Mouth False Zyprexa 2.5 mg tablet 2.5 mg By Mouth At bedtime For major depressive disorder 2.5 mg 2023 Active 2023 53812 85209 0 At bedtime By Mouth False Tylenol 325 mg tablet 650 mg By Mouth 3 times a day For pain 650 mg 2023 Active 2023 25479 59185 0 3 times a day By Mouth False VITAL SIGNS Date Time Diastolic blood pressure Systolic blood pressure Body height Body weight Temperature SpO2 Blood Sugar Pulse Respirations 625 88229 9 65.00 mm[Hg] - Lying Down 112.00 mm[Hg] - Lying Down 98.60 Tympanic 94.00 % 80.00/ min 18.00/min 625 57909 8 65.00 mm[Hg] - Sitting 112.00 mm[Hg] - Sitting 98.60 Tympanic 80.00/ min 18.00/min Immunizations Vaccine Date Status COVID-19 05/25/2020 Completed COVID-19 06/15/2020 Completed
--- OUTSIDE RECORDS SUMMARY | 2024-04-08 21:58 | External Medical Summary | Continuity Of Care Document ---
Author Name Unknown Address [address] [address] Organization [facility] () Care Team Providers Care Greenhouse Manager Name Role Phone DO Woody Amy Primary Care Provider [phone] Allergies Allergy Reaction Start Date End Date Status LORAZEPAM Active PENICILLINS Hives, Rash Active Medications Medication Instructions Dosage Start Date End Date Status Order Date Drug Code Frequency Route of Admin Diagnosis Code Substitutions Allowed Aspercreme (lidocaine HCl) 4 % topical 4 % Topical Three times daily as needed For pain to feet and legs 4 % 11/08 Inactiv e 2023 91789 01505 0 Three times daily as needed Topica l False Citalopram 20 mg tablet [generic] 20 mg By Mouth Once daily For anxiety 20 mg 11/08 Inactiv e 2023 04909 74531 1 Once daily By Mouth False Dulcolax (bisacodyl) 10 mg rectal suppository 10 mg Rectal Daily as needed For constipation 10 mg 2023 Active 2023 11072 71077 1 Daily as needed Rectal False Citalopram 20 mg tablet [generic] 20 mg By Mouth Once daily For anxiety 20 mg 2023 Active 2023 48273 38940 1 Once daily By Mouth False Aspercreme (lidocaine HCl) 4 % topical 4 % Topical Three times daily as needed For pain to feet and legs 4 % 2023 Active 2023 43130 07817 0 Three times daily as needed Topica l False Haloperidol lactate 2 mg/mL oral concentrate [generic] 0.5ml By Mouth Every 4 hours as needed For agitation 0.5ml 2023 Active 2023 74533 59796 4 Every 4 hours as needed By Mouth False Haloperidol lactate 2 mg/mL oral concentrate [generic] 0.25ml By Mouth Every 4 days as needed For nausea/vomiti ng 0.25ml 2023 Active 2023 59977 36800 4 Every 4 days as needed By Mouth False Ipratropium 0.5 mg-albutero l 3 mg (2.5 mg base)/3 mL nebulizatio n soln [generic] 3ml Inhalation Every 6 hours as needed via nebulization route For shortness of breath 3ml 2023 Active 2023 19817 87768 3 Every 6 hours as needed Inhala tion False Lactulose 10 gram/15 mL (15 mL) oral solution [generic] 10 gram/15 m By Mouth Once daily For constipation 10 gram/15 m 2023 Active 2023 40597 13406 0 Once daily By Mouth False Morphine concentrate 100 mg/5 mL (20 mg/mL) oral solution [generic] 0.25ml (5mg) By Mouth Every 2 hours as needed For shortness of breath or pain 0.25ml (5mg) 2023 Active 2023 38074 43820 1 Every 2 hours as needed By Mouth False Pantoprazol e 40 mg tablet,fern yed release [generic] 40 mg By Mouth Once daily For GERD 40 mg 2023 Active 2023 26593 36325 0 Once daily By Mouth False Pregabalin 25 mg capsule [generic] 25 mg By Mouth 3 times a day For pain 25 mg 2023 Active 2023 47275 16897 9 3 times a day By Mouth False Senna 8.8 mg/5 mL oral syrup 5ml By Mouth Twice daily as needed For constipation 5ml 2023 Active 2023 69621 46740 8 Twice daily as needed By Mouth False Tramadol 50 mg tablet [generic] 50 mg By Mouth Twice daily For pain 50 mg 2023 Active 2023 61832 80280 0 Twice daily By Mouth False Tylenol Arthritis Pain 650 mg tablet,exte nded release 650 mg By Mouth 3 times a day For pain 650 mg 2023 Active 2023 82019 50651 1 3 times a day By Mouth False Xanax 0.25 mg tablet 0.25 mg By Mouth Three times daily as needed For anxiety 0.25 mg 2023 Active 2023 90871 43214 1 Three times daily as needed By Mouth False Zyprexa 2.5 mg tablet 2.5 mg By Mouth At bedtime For major depressive disorder 2.5 mg 2023 Active 2023 66804 50801 0 At bedtime By Mouth False VITAL SIGNS Date Time Diastolic blood pressure Systolic blood pressure Body height Body weight Temperature SpO2 Blood Sugar Pulse Respirations 28578 625 74556 9 65.00 mm[Hg] - Lying Down 112.00 mm[Hg] - Lying Down 98.60 Tympanic 94.00 % 80.00/ min 18.00/min Immunizations Vaccine Date Status COVID-19 05/25/2020 Completed COVID-19 06/15/2020 Completed
--- OUTSIDE RECORDS SUMMARY | 2024-04-08 21:58 | External Medical Summary | Continuity Of Care Document ---
Author Name Unknown Address [address] [address] Organization [facility] () Care Team Providers Care Riprap Man Name Role Phone DO Woody Amy Primary Care Provider [phone] Allergies Allergy Reaction Start Date End Date Status LORAZEPAM Active PENICILLINS Hives, Rash Active Medications Medication Instructions Dosage Start Date End Date Status Order Date Drug Code Frequency Route of Admin Diagnosis Code Substitutions Allowed Aspercreme (lidocaine HCl) 4 % topical 4 % Topical Three times daily as needed For pain to feet and legs 4 % 11/08 Inactiv e 2023 64128 25294 0 Three times daily as needed Topica l False Citalopram 20 mg tablet [generic] 20 mg By Mouth Once daily For anxiety 20 mg 11/08 Inactiv e 2023 40674 19902 1 Once daily By Mouth False Dulcolax (bisacodyl) 10 mg rectal suppository 10 mg Rectal Daily as needed For constipation 10 mg 2023 Active 2023 80571 04909 1 Daily as needed Rectal False Citalopram 20 mg tablet [generic] 20 mg By Mouth Once daily For anxiety 20 mg 2023 Active 2023 14079 33209 1 Once daily By Mouth False Aspercreme (lidocaine HCl) 4 % topical 4 % Topical Three times daily as needed For pain to feet and legs 4 % 2023 Active 2023 85323 46815 0 Three times daily as needed Topica l False Haloperidol lactate 2 mg/mL oral concentrate [generic] 0.5ml By Mouth Every 4 hours as needed For agitation 0.5ml 2023 Active 2023 40196 86609 4 Every 4 hours as needed By Mouth False Haloperidol lactate 2 mg/mL oral concentrate [generic] 0.25ml By Mouth Every 4 days as needed For nausea/vomiti ng 0.25ml 2023 Active 2023 15048 14615 4 Every 4 days as needed By Mouth False Ipratropium 0.5 mg-albutero l 3 mg (2.5 mg base)/3 mL nebulizatio n soln [generic] 3ml Inhalation Every 6 hours as needed via nebulization route For shortness of breath 3ml 2023 Active 2023 24324 18385 3 Every 6 hours as needed Inhala tion False Lactulose 10 gram/15 mL (15 mL) oral solution [generic] 10 gram/15 m By Mouth Once daily For constipation 10 gram/15 m 2023 Active 2023 14893 66517 0 Once daily By Mouth False Morphine concentrate 100 mg/5 mL (20 mg/mL) oral solution [generic] 0.25ml (5mg) By Mouth Every 2 hours as needed For shortness of breath or pain 0.25ml (5mg) 2023 Active 2023 82735 64200 1 Every 2 hours as needed By Mouth False Pantoprazol e 40 mg tablet,fern yed release [generic] 40 mg By Mouth Once daily For GERD 40 mg 2023 Active 2023 07058 99529 0 Once daily By Mouth False Pregabalin 25 mg capsule [generic] 25 mg By Mouth 3 times a day For pain 25 mg 2023 Active 2023 06768 39051 9 3 times a day By Mouth False Senna 8.8 mg/5 mL oral syrup 5ml By Mouth Twice daily as needed For constipation 5ml 2023 Active 2023 35330 42799 8 Twice daily as needed By Mouth False Tramadol 50 mg tablet [generic] 50 mg By Mouth Twice daily For pain 50 mg 2023 Active 2023 89900 07184 0 Twice daily By Mouth False Tylenol Arthritis Pain 650 mg tablet,exte nded release 650 mg By Mouth 3 times a day For pain 650 mg 11/08 Inactiv e 2023 52098 83161 1 3 times a day By Mouth False Xanax 0.25 mg tablet 0.25 mg By Mouth Three times daily as needed For anxiety 0.25 mg 2023 Active 2023 35256 86053 1 Three times daily as needed By Mouth False Zyprexa 2.5 mg tablet 2.5 mg By Mouth At bedtime For major depressive disorder 2.5 mg 2023 Active 2023 96013 52314 0 At bedtime By Mouth False Tylenol 325 mg tablet 650 mg By Mouth 3 times a day For pain 650 mg 2023 Active 2023 45449 51775 0 3 times a day By Mouth False VITAL SIGNS Date Time Diastolic blood pressure Systolic blood pressure Body height Body weight Temperature SpO2 Blood Sugar Pulse Respirations 625 88501 9 65.00 mm[Hg] - Lying Down 112.00 mm[Hg] - Lying Down 98.60 Tympanic 94.00 % 80.00/ min 18.00/min 625 86485 8 65.00 mm[Hg] - Sitting 112.00 mm[Hg] - Sitting 98.60 Tympanic 80.00/ min 18.00/min Immunizations Vaccine Date Status COVID-19 05/25/2020 Completed COVID-19 06/15/2020 Completed
--- OUTSIDE RECORDS SUMMARY | 2024-04-08 21:58 | External Medical Summary | Continuity Of Care Document ---
Author Name Unknown Address [address] [address] Organization [facility] () Care Team Providers Care Childcare Center Administrator Name Role Phone DO Woody Amy Primary Care Provider [phone] Allergies Allergy Reaction Start Date End Date Status LORAZEPAM Active PENICILLINS Hives, Rash Active Medications Medication Instructions Dosage Start Date End Date Status Order Date Drug Code Frequency Route of Admin Diagnosis Code Substitutions Allowed Aspercreme (lidocaine HCl) 4 % topical 4 % Topical Three times daily as needed For pain to feet and legs 4 % 2023 Active 2023 64213 21170 0 Three times daily as needed Topica l False Citalopram 20 mg tablet [generic] 20 mg By Mouth Once daily For anxiety 20 mg 2023 Active 2023 69105 11881 1 Once daily By Mouth False Dulcolax (bisacodyl) 10 mg rectal suppository 10 mg Rectal Daily as needed For constipation 10 mg 2023 Active 2023 22228 66131 1 Daily as needed Rectal False Immunizations Vaccine Date Status COVID-19 05/25/2020 Completed COVID-19 06/15/2020 Completed
--- OUTSIDE RECORDS SUMMARY | 2024-04-08 21:58 | External Medical Summary | Continuity Of Care Document ---
Author Name Unknown Address [address] [address] Organization [facility] () Care Team Providers Care Hospice Music Therapy Name Role Phone DO Woody Amy Primary Care Provider [phone] Allergies Allergy Reaction Start Date End Date Status LORAZEPAM Active PENICILLINS Hives, Rash Active Medications Medication Instructions Dosage Start Date End Date Status Order Date Drug Code Frequency Route of Admin Diagnosis Code Substitutions Allowed Aspercreme (lidocaine HCl) 4 % topical 4 % Topical Three times daily as needed For pain to feet and legs 4 % 11/08 Inactiv e 2023 65946 07560 0 Three times daily as needed Topica l False Citalopram 20 mg tablet [generic] 20 mg By Mouth Once daily For anxiety 20 mg 11/08 Inactiv e 2023 54466 75321 1 Once daily By Mouth False Dulcolax (bisacodyl) 10 mg rectal suppository 10 mg Rectal Daily as needed For constipation 10 mg 2023 Active 2023 35886 32322 1 Daily as needed Rectal False Citalopram 20 mg tablet [generic] 20 mg By Mouth Once daily For anxiety 20 mg 2023 Active 2023 53912 14864 1 Once daily By Mouth False Aspercreme (lidocaine HCl) 4 % topical 4 % Topical Three times daily as needed For pain to feet and legs 4 % 2023 Active 2023 73885 81914 0 Three times daily as needed Topica l False Haloperidol lactate 2 mg/mL oral concentrate [generic] 0.5ml By Mouth Every 4 hours as needed For agitation 0.5ml 2023 Active 2023 29182 65477 4 Every 4 hours as needed By Mouth False Haloperidol lactate 2 mg/mL oral concentrate [generic] 0.25ml By Mouth Every 4 days as needed For nausea/vomiti ng 0.25ml 2023 Active 2023 17040 40100 4 Every 4 days as needed By Mouth False Ipratropium 0.5 mg-albutero l 3 mg (2.5 mg base)/3 mL nebulizatio n soln [generic] 3ml Inhalation Every 6 hours as needed via nebulization route For shortness of breath 3ml 2023 Active 2023 99785 69124 3 Every 6 hours as needed Inhala tion False Lactulose 10 gram/15 mL (15 mL) oral solution [generic] 10 gram/15 m By Mouth Once daily For constipation 10 gram/15 m 2023 Active 2023 32850 00489 0 Once daily By Mouth False Morphine concentrate 100 mg/5 mL (20 mg/mL) oral solution [generic] 0.25ml (5mg) By Mouth Every 2 hours as needed For shortness of breath or pain 0.25ml (5mg) 2023 Active 2023 99326 96186 1 Every 2 hours as needed By Mouth False Pantoprazol e 40 mg tablet,fern yed release [generic] 40 mg By Mouth Once daily For GERD 40 mg 2023 Active 2023 87626 51564 0 Once daily By Mouth False Pregabalin 25 mg capsule [generic] 25 mg By Mouth 3 times a day For pain 25 mg 2023 Active 2023 69000 71953 9 3 times a day By Mouth False Senna 8.8 mg/5 mL oral syrup 5ml By Mouth Twice daily as needed For constipation 5ml 2023 Active 2023 17359 91483 8 Twice daily as needed By Mouth False Tramadol 50 mg tablet [generic] 50 mg By Mouth Twice daily For pain 50 mg 2023 Active 2023 49308 25315 0 Twice daily By Mouth False Tylenol Arthritis Pain 650 mg tablet,exte nded release 650 mg By Mouth 3 times a day For pain 650 mg 2023 Active 2023 62740 58799 1 3 times a day By Mouth False Xanax 0.25 mg tablet 0.25 mg By Mouth Three times daily as needed For anxiety 0.25 mg 2023 Active 2023 65625 59523 1 Three times daily as needed By Mouth False Zyprexa 2.5 mg tablet 2.5 mg By Mouth At bedtime For major depressive disorder 2.5 mg 2023 Active 2023 89436 45779 0 At bedtime By Mouth False VITAL SIGNS Date Time Diastolic blood pressure Systolic blood pressure Body height Body weight Temperature SpO2 Blood Sugar Pulse Respirations 98956 625 02246 9 65.00 mm[Hg] - Lying Down 112.00 mm[Hg] - Lying Down 98.60 Tympanic 94.00 % 80.00/ min 18.00/min Immunizations Vaccine Date Status COVID-19 05/25/2020 Completed COVID-19 06/15/2020 Completed
--- OUTSIDE RECORDS SUMMARY | 2024-04-08 21:58 | External Medical Summary | Continuity Of Care Document ---
Author Name Unknown Address [address] [address] [facility] () Care Team Providers Care Load Checker Name Role Phone DO Woody Amy Primary Care Provider [phone] Allergies Allergy Reaction Start Date End Date Status LORAZEPAM Active PENICILLINS Hives, Rash Active
--- OUTSIDE RECORDS SUMMARY | 2024-04-08 21:58 | External Medical Summary | Continuity Of Care Document ---
Author Name Unknown Address [address] [address] Organization [facility] () Care Team Providers Care Dye Worker Name Role Phone DO Woody Amy Primary Care Provider [phone] Allergies Allergy Reaction Start Date End Date Status LORAZEPAM Active PENICILLINS Hives, Rash Active Medications Medication Instructions Dosage Start Date End Date Status Order Date Drug Code Frequency Route of Admin Diagnosis Code Substitutions Allowed Aspercreme (lidocaine HCl) 4 % topical 4 % Topical Three times daily as needed For pain to feet and legs 4 % 11/08 Inactiv e 2023 82384 87075 0 Three times daily as needed Topica l False Citalopram 20 mg tablet [generic] 20 mg By Mouth Once daily For anxiety 20 mg 11/08 Inactiv e 2023 89198 72918 1 Once daily By Mouth False Dulcolax (bisacodyl) 10 mg rectal suppository 10 mg Rectal Daily as needed For constipation 10 mg 2023 Active 2023 05765 21526 1 Daily as needed Rectal False Citalopram 20 mg tablet [generic] 20 mg By Mouth Once daily For anxiety 20 mg 2023 Active 2023 41948 64772 1 Once daily By Mouth False Aspercreme (lidocaine HCl) 4 % topical 4 % Topical Three times daily as needed For pain to feet and legs 4 % 2023 Active 2023 31343 27069 0 Three times daily as needed Topica l False Haloperidol lactate 2 mg/mL oral concentrate [generic] 0.5ml By Mouth Every 4 hours as needed For agitation 0.5ml 2023 Active 2023 75304 04953 4 Every 4 hours as needed By Mouth False Haloperidol lactate 2 mg/mL oral concentrate [generic] 0.25ml By Mouth Every 4 days as needed For nausea/vomiti ng 0.25ml 2023 Active 2023 48339 46290 4 Every 4 days as needed By Mouth False Ipratropium 0.5 mg-albutero l 3 mg (2.5 mg base)/3 mL nebulizatio n soln [generic] 3ml Inhalation Every 6 hours as needed via nebulization route For shortness of breath 3ml 2023 Active 2023 01422 66137 3 Every 6 hours as needed Inhala tion False Lactulose 10 gram/15 mL (15 mL) oral solution [generic] 10 gram/15 m By Mouth Once daily For constipation 10 gram/15 m 2023 Active 2023 10628 27973 0 Once daily By Mouth False Morphine concentrate 100 mg/5 mL (20 mg/mL) oral solution [generic] 0.25ml (5mg) By Mouth Every 2 hours as needed For shortness of breath or pain 0.25ml (5mg) 2023 Active 2023 10802 57029 1 Every 2 hours as needed By Mouth False Pantoprazol e 40 mg tablet,fern yed release [generic] 40 mg By Mouth Once daily For GERD 40 mg 2023 Active 2023 83244 38907 0 Once daily By Mouth False Pregabalin 25 mg capsule [generic] 25 mg By Mouth 3 times a day For pain 25 mg 2023 Active 2023 76303 30363 9 3 times a day By Mouth False Senna 8.8 mg/5 mL oral syrup 5ml By Mouth Twice daily as needed For constipation 5ml 2023 Active 2023 66822 66222 8 Twice daily as needed By Mouth False Tramadol 50 mg tablet [generic] 50 mg By Mouth Twice daily For pain 50 mg 2023 Active 2023 00610 78863 0 Twice daily By Mouth False Tylenol Arthritis Pain 650 mg tablet,exte nded release 650 mg By Mouth 3 times a day For pain 650 mg 11/08 Inactiv e 2023 48370 56144 1 3 times a day By Mouth False Xanax 0.25 mg tablet 0.25 mg By Mouth Three times daily as needed For anxiety 0.25 mg 2023 Active 2023 69109 55016 1 Three times daily as needed By Mouth False Zyprexa 2.5 mg tablet 2.5 mg By Mouth At bedtime For major depressive disorder 2.5 mg 2023 Active 2023 14690 12158 0 At bedtime By Mouth False Tylenol 325 mg tablet 650 mg By Mouth 3 times a day For pain 650 mg 2023 Active 2023 15162 42273 0 3 times a day By Mouth False VITAL SIGNS Date Time Diastolic blood pressure Systolic blood pressure Body height Body weight Temperature SpO2 Blood Sugar Pulse Respirations 625 63238 9 65.00 mm[Hg] - Lying Down 112.00 mm[Hg] - Lying Down 98.60 Tympanic 94.00 % 80.00/ min 18.00/min 625 30693 8 65.00 mm[Hg] - Sitting 112.00 mm[Hg] - Sitting 98.60 Tympanic 80.00/ min 18.00/min Immunizations Vaccine Date Status COVID-19 05/25/2020 Completed COVID-19 06/15/2020 Completed
--- OUTSIDE RECORDS SUMMARY | 2024-04-08 21:58 | External Medical Summary | Continuity Of Care Document ---
Author Name Unknown Address [address] [address] Organization [facility] () Care Team Providers Care Mop Man Name Role Phone DO Woody Amy Primary Care Provider [phone] Allergies Allergy Reaction Start Date End Date Status LORAZEPAM Active PENICILLINS Hives, Rash Active Medications Medication Instructions Dosage Start Date End Date Status Order Date Drug Code Frequency Route of Admin Diagnosis Code Substitutions Allowed Aspercreme (lidocaine HCl) 4 % topical 4 % Topical Three times daily as needed For pain to feet and legs 4 % 11/08 Inactiv e 2023 33295 90858 0 Three times daily as needed Topica l False Citalopram 20 mg tablet [generic] 20 mg By Mouth Once daily For anxiety 20 mg 11/08 Inactiv e 2023 50696 89295 1 Once daily By Mouth False Dulcolax (bisacodyl) 10 mg rectal suppository 10 mg Rectal Daily as needed For constipation 10 mg 2023 Active 2023 14451 18458 1 Daily as needed Rectal False Citalopram 20 mg tablet [generic] 20 mg By Mouth Once daily For anxiety 20 mg 2023 Active 2023 15470 48575 1 Once daily By Mouth False Aspercreme (lidocaine HCl) 4 % topical 4 % Topical Three times daily as needed For pain to feet and legs 4 % 2023 Active 2023 55701 23475 0 Three times daily as needed Topica l False Haloperidol lactate 2 mg/mL oral concentrate [generic] 0.5ml By Mouth Every 4 hours as needed For agitation 0.5ml 2023 Active 2023 29110 66855 4 Every 4 hours as needed By Mouth False Haloperidol lactate 2 mg/mL oral concentrate [generic] 0.25ml By Mouth Every 4 days as needed For nausea/vomiti ng 0.25ml 2023 Active 2023 92368 51030 4 Every 4 days as needed By Mouth False Ipratropium 0.5 mg-albutero l 3 mg (2.5 mg base)/3 mL nebulizatio n soln [generic] 3ml Inhalation Every 6 hours as needed via nebulization route For shortness of breath 3ml 2023 Active 2023 68782 92516 3 Every 6 hours as needed Inhala tion False Lactulose 10 gram/15 mL (15 mL) oral solution [generic] 10 gram/15 m By Mouth Once daily For constipation 10 gram/15 m 2023 Active 2023 26993 18841 0 Once daily By Mouth False Morphine concentrate 100 mg/5 mL (20 mg/mL) oral solution [generic] 0.25ml (5mg) By Mouth Every 2 hours as needed For shortness of breath or pain 0.25ml (5mg) 2023 Active 2023 15504 76852 1 Every 2 hours as needed By Mouth False Pantoprazol e 40 mg tablet,fern yed release [generic] 40 mg By Mouth Once daily For GERD 40 mg 2023 Active 2023 09219 41382 0 Once daily By Mouth False Pregabalin 25 mg capsule [generic] 25 mg By Mouth 3 times a day For pain 25 mg 2023 Active 2023 39265 75907 9 3 times a day By Mouth False Senna 8.8 mg/5 mL oral syrup 5ml By Mouth Twice daily as needed For constipation 5ml 2023 Active 2023 32759 50617 8 Twice daily as needed By Mouth False Tramadol 50 mg tablet [generic] 50 mg By Mouth Twice daily For pain 50 mg 2023 Active 2023 57575 71320 0 Twice daily By Mouth False Tylenol Arthritis Pain 650 mg tablet,exte nded release 650 mg By Mouth 3 times a day For pain 650 mg 2023 Active 2023 83573 58596 1 3 times a day By Mouth False Xanax 0.25 mg tablet 0.25 mg By Mouth Three times daily as needed For anxiety 0.25 mg 2023 Active 2023 06914 91438 1 Three times daily as needed By Mouth False Zyprexa 2.5 mg tablet 2.5 mg By Mouth At bedtime For major depressive disorder 2.5 mg 2023 Active 2023 74533 33265 0 At bedtime By Mouth False VITAL SIGNS Date Time Diastolic blood pressure Systolic blood pressure Body height Body weight Temperature SpO2 Blood Sugar Pulse Respirations 04189 625 67127 9 65.00 mm[Hg] - Lying Down 112.00 mm[Hg] - Lying Down 98.60 Tympanic 94.00 % 80.00/ min 18.00/min Immunizations Vaccine Date Status COVID-19 05/25/2020 Completed COVID-19 06/15/2020 Completed
--- OUTSIDE RECORDS SUMMARY | 2024-04-08 21:58 | External Medical Summary | Continuity Of Care Document ---
Author Name Unknown Address [address] [address] Organization [facility] () Care Team Providers Care Senior Research Scientist Name Role Phone DO Woody Amy Primary Care Provider [phone] Allergies Allergy Reaction Start Date End Date Status LORAZEPAM Active PENICILLINS Hives, Rash Active Medications Medication Instructions Dosage Start Date End Date Status Order Date Drug Code Frequency Route of Admin Diagnosis Code Substitutions Allowed Aspercreme (lidocaine HCl) 4 % topical 4 % Topical Three times daily as needed For pain to feet and legs 4 % 11/08 Inactiv e 2023 25912 19632 0 Three times daily as needed Topica l False Citalopram 20 mg tablet [generic] 20 mg By Mouth Once daily For anxiety 20 mg 11/08 Inactiv e 2023 78207 33475 1 Once daily By Mouth False Dulcolax (bisacodyl) 10 mg rectal suppository 10 mg Rectal Daily as needed For constipation 10 mg 2023 Active 2023 74962 37718 1 Daily as needed Rectal False Citalopram 20 mg tablet [generic] 20 mg By Mouth Once daily For anxiety 20 mg 2023 Active 2023 71489 81737 1 Once daily By Mouth False Aspercreme (lidocaine HCl) 4 % topical 4 % Topical Three times daily as needed For pain to feet and legs 4 % 2023 Active 2023 41467 68471 0 Three times daily as needed Topica l False Haloperidol lactate 2 mg/mL oral concentrate [generic] 0.5ml By Mouth Every 4 hours as needed For agitation 0.5ml 2023 Active 2023 71179 34950 4 Every 4 hours as needed By Mouth False Haloperidol lactate 2 mg/mL oral concentrate [generic] 0.25ml By Mouth Every 4 days as needed For nausea/vomiti ng 0.25ml 2023 Active 2023 37455 58841 4 Every 4 days as needed By Mouth False Ipratropium 0.5 mg-albutero l 3 mg (2.5 mg base)/3 mL nebulizatio n soln [generic] 3ml Inhalation Every 6 hours as needed via nebulization route For shortness of breath 3ml 2023 Active 2023 86575 32193 3 Every 6 hours as needed Inhala tion False Lactulose 10 gram/15 mL (15 mL) oral solution [generic] 10 gram/15 m By Mouth Once daily For constipation 10 gram/15 m 2023 Active 2023 15125 08976 0 Once daily By Mouth False Morphine concentrate 100 mg/5 mL (20 mg/mL) oral solution [generic] 0.25ml (5mg) By Mouth Every 2 hours as needed For shortness of breath or pain 0.25ml (5mg) 2023 Active 2023 54973 47321 1 Every 2 hours as needed By Mouth False Pantoprazol e 40 mg tablet,fern yed release [generic] 40 mg By Mouth Once daily For GERD 40 mg 2023 Active 2023 73325 23971 0 Once daily By Mouth False Pregabalin 25 mg capsule [generic] 25 mg By Mouth 3 times a day For pain 25 mg 2023 Active 2023 63939 27541 9 3 times a day By Mouth False Senna 8.8 mg/5 mL oral syrup 5ml By Mouth Twice daily as needed For constipation 5ml 2023 Active 2023 97032 09461 8 Twice daily as needed By Mouth False Tramadol 50 mg tablet [generic] 50 mg By Mouth Twice daily For pain 50 mg 2023 Active 2023 72690 99067 0 Twice daily By Mouth False Tylenol Arthritis Pain 650 mg tablet,exte nded release 650 mg By Mouth 3 times a day For pain 650 mg 11/08 Inactiv e 2023 11220 80190 1 3 times a day By Mouth False Xanax 0.25 mg tablet 0.25 mg By Mouth Three times daily as needed For anxiety 0.25 mg 2023 Active 2023 73279 40165 1 Three times daily as needed By Mouth False Zyprexa 2.5 mg tablet 2.5 mg By Mouth At bedtime For major depressive disorder 2.5 mg 2023 Active 2023 22415 73420 0 At bedtime By Mouth False Tylenol 325 mg tablet 650 mg By Mouth 3 times a day For pain 650 mg 11/09 Inactiv e 2023 46382 88730 0 3 times a day By Mouth False Tylenol Extra Strength 500 mg tablet 500 mg By Mouth 3 times a day For pain 500 mg 2023 Active 2023 72622 88494 6 3 times a day By Mouth False VITAL SIGNS Date Time Diastolic blood pressure Systolic blood pressure Body height Body weight Temperature SpO2 Blood Sugar Pulse Respirations 625 49790 9 65.00 mm[Hg] - Lying Down 112.00 mm[Hg] - Lying Down 98.60 Tympanic 94.00 % 80.00/ min 18.00/min 625 48195 8 65.00 mm[Hg] - Sitting 112.00 mm[Hg] - Sitting 98.60 Tympanic 80.00/ min 18.00/min Immunizations Vaccine Date Status COVID-19 05/25/2020 Completed COVID-19 06/15/2020 Completed Influenza 05/12/2023 Completed (PCV20)Pneumococcal 05/12/2023 Completed
--- OUTSIDE RECORDS SUMMARY | 2024-04-08 21:58 | External Medical Summary | Continuity Of Care Document ---
Author Name Unknown Address [address] [address] Organization [facility] () Care Team Providers Care Behavioral Therapist Name Role Phone DO Woody Amy Primary Care Provider [phone] Allergies Allergy Reaction Start Date End Date Status LORAZEPAM Active PENICILLINS Hives, Rash Active Medications Medication Instructions Dosage Start Date End Date Status Order Date Drug Code Frequency Route of Admin Diagnosis Code Substitutions Allowed Aspercreme (lidocaine HCl) 4 % topical 4 % Topical Three times daily as needed For pain to feet and legs 4 % 11/08 Inactiv e 2023 41433 60603 0 Three times daily as needed Topica l False Citalopram 20 mg tablet [generic] 20 mg By Mouth Once daily For anxiety 20 mg 11/08 Inactiv e 2023 58359 55859 1 Once daily By Mouth False Dulcolax (bisacodyl) 10 mg rectal suppository 10 mg Rectal Daily as needed For constipation 10 mg 2023 Active 2023 43244 85800 1 Daily as needed Rectal False Citalopram 20 mg tablet [generic] 20 mg By Mouth Once daily For anxiety 20 mg 2023 Active 2023 51402 20544 1 Once daily By Mouth False Aspercreme (lidocaine HCl) 4 % topical 4 % Topical Three times daily as needed For pain to feet and legs 4 % 2023 Active 2023 23151 45592 0 Three times daily as needed Topica l False Haloperidol lactate 2 mg/mL oral concentrate [generic] 0.5ml By Mouth Every 4 hours as needed For agitation 0.5ml 2023 Active 2023 68010 23068 4 Every 4 hours as needed By Mouth False Haloperidol lactate 2 mg/mL oral concentrate [generic] 0.25ml By Mouth Every 4 days as needed For nausea/vomiti ng 0.25ml 2023 Active 2023 33451 71747 4 Every 4 days as needed By Mouth False Ipratropium 0.5 mg-albutero l 3 mg (2.5 mg base)/3 mL nebulizatio n soln [generic] 3ml Inhalation Every 6 hours as needed via nebulization route For shortness of breath 3ml 2023 Active 2023 42525 64077 3 Every 6 hours as needed Inhala tion False Lactulose 10 gram/15 mL (15 mL) oral solution [generic] 10 gram/15 m By Mouth Once daily For constipation 10 gram/15 m 2023 Active 2023 10862 80548 0 Once daily By Mouth False Morphine concentrate 100 mg/5 mL (20 mg/mL) oral solution [generic] 0.25ml (5mg) By Mouth Every 2 hours as needed For shortness of breath or pain 0.25ml (5mg) 2023 Active 2023 95915 13844 1 Every 2 hours as needed By Mouth False Pantoprazol e 40 mg tablet,fern yed release [generic] 40 mg By Mouth Once daily For GERD 40 mg 2023 Active 2023 87907 13622 0 Once daily By Mouth False Pregabalin 25 mg capsule [generic] 25 mg By Mouth 3 times a day For pain 25 mg 2023 Active 2023 72875 02959 9 3 times a day By Mouth False Senna 8.8 mg/5 mL oral syrup 5ml By Mouth Twice daily as needed For constipation 5ml 2023 Active 2023 72486 61203 8 Twice daily as needed By Mouth False Tramadol 50 mg tablet [generic] 50 mg By Mouth Twice daily For pain 50 mg 2023 Active 2023 29315 38196 0 Twice daily By Mouth False Tylenol Arthritis Pain 650 mg tablet,exte nded release 650 mg By Mouth 3 times a day For pain 650 mg 11/08 Inactiv e 2023 67462 77957 1 3 times a day By Mouth False Xanax 0.25 mg tablet 0.25 mg By Mouth Three times daily as needed For anxiety 0.25 mg 2023 Active 2023 63004 65722 1 Three times daily as needed By Mouth False Zyprexa 2.5 mg tablet 2.5 mg By Mouth At bedtime For major depressive disorder 2.5 mg 2023 Active 2023 49760 86204 0 At bedtime By Mouth False Tylenol 325 mg tablet 650 mg By Mouth 3 times a day For pain 650 mg 2023 Active 2023 60820 86074 0 3 times a day By Mouth False VITAL SIGNS Date Time Diastolic blood pressure Systolic blood pressure Body height Body weight Temperature SpO2 Blood Sugar Pulse Respirations 625 01246 9 65.00 mm[Hg] - Lying Down 112.00 mm[Hg] - Lying Down 98.60 Tympanic 94.00 % 80.00/ min 18.00/min 625 44633 8 65.00 mm[Hg] - Sitting 112.00 mm[Hg] - Sitting 98.60 Tympanic 80.00/ min 18.00/min Immunizations Vaccine Date Status COVID-19 05/25/2020 Completed COVID-19 06/15/2020 Completed
--- OUTSIDE RECORDS SUMMARY | 2024-04-08 21:58 | External Medical Summary | Continuity Of Care Document ---
Author Name Unknown Address [address] [address] Organization [facility] () Care Team Providers Care Public Relations Account Executive Name Role Phone DO Woody Amy Primary Care Provider [phone] Allergies Allergy Reaction Start Date End Date Status LORAZEPAM Active PENICILLINS Hives, Rash Active Medications Medication Instructions Dosage Start Date End Date Status Order Date Drug Code Frequency Route of Admin Diagnosis Code Substitutions Allowed Aspercreme (lidocaine HCl) 4 % topical 4 % Topical Three times daily as needed For pain to feet and legs 4 % 11/08 Inactiv e 2023 36362 93497 0 Three times daily as needed Topica l False Citalopram 20 mg tablet [generic] 20 mg By Mouth Once daily For anxiety 20 mg 11/08 Inactiv e 2023 99335 27244 1 Once daily By Mouth False Dulcolax (bisacodyl) 10 mg rectal suppository 10 mg Rectal Daily as needed For constipation 10 mg 2023 Active 2023 72424 55560 1 Daily as needed Rectal False Citalopram 20 mg tablet [generic] 20 mg By Mouth Once daily For anxiety 20 mg 2023 Active 2023 51921 10903 1 Once daily By Mouth False Aspercreme (lidocaine HCl) 4 % topical 4 % Topical Three times daily as needed For pain to feet and legs 4 % 2023 Active 2023 51251 20935 0 Three times daily as needed Topica l False Haloperidol lactate 2 mg/mL oral concentrate [generic] 0.5ml By Mouth Every 4 hours as needed For agitation 0.5ml 2023 Active 2023 98956 85523 4 Every 4 hours as needed By Mouth False Haloperidol lactate 2 mg/mL oral concentrate [generic] 0.25ml By Mouth Every 4 days as needed For nausea/vomiti ng 0.25ml 2023 Active 2023 60228 10165 4 Every 4 days as needed By Mouth False Ipratropium 0.5 mg-albutero l 3 mg (2.5 mg base)/3 mL nebulizatio n soln [generic] 3ml Inhalation Every 6 hours as needed via nebulization route For shortness of breath 3ml 2023 Active 2023 58055 75093 3 Every 6 hours as needed Inhala tion False Lactulose 10 gram/15 mL (15 mL) oral solution [generic] 10 gram/15 m By Mouth Once daily For constipation 10 gram/15 m 2023 Active 2023 02370 95396 0 Once daily By Mouth False Morphine concentrate 100 mg/5 mL (20 mg/mL) oral solution [generic] 0.25ml (5mg) By Mouth Every 2 hours as needed For shortness of breath or pain 0.25ml (5mg) 2023 Active 2023 60607 21433 1 Every 2 hours as needed By Mouth False Pantoprazol e 40 mg tablet,fern yed release [generic] 40 mg By Mouth Once daily For GERD 40 mg 2023 Active 2023 68299 44064 0 Once daily By Mouth False Pregabalin 25 mg capsule [generic] 25 mg By Mouth 3 times a day For pain 25 mg 2023 Active 2023 28000 32847 9 3 times a day By Mouth False Senna 8.8 mg/5 mL oral syrup 5ml By Mouth Twice daily as needed For constipation 5ml 2023 Active 2023 86893 65255 8 Twice daily as needed By Mouth False Tramadol 50 mg tablet [generic] 50 mg By Mouth Twice daily For pain 50 mg 2023 Active 2023 19306 32284 0 Twice daily By Mouth False Tylenol Arthritis Pain 650 mg tablet,exte nded release 650 mg By Mouth 3 times a day For pain 650 mg 11/08 Inactiv e 2023 49090 26542 1 3 times a day By Mouth False Xanax 0.25 mg tablet 0.25 mg By Mouth Three times daily as needed For anxiety 0.25 mg 2023 Active 2023 29623 82553 1 Three times daily as needed By Mouth False Zyprexa 2.5 mg tablet 2.5 mg By Mouth At bedtime For major depressive disorder 2.5 mg 2023 Active 2023 03047 99713 0 At bedtime By Mouth False Tylenol 325 mg tablet 650 mg By Mouth 3 times a day For pain 650 mg 2023 Active 2023 78645 19165 0 3 times a day By Mouth False VITAL SIGNS Date Time Diastolic blood pressure Systolic blood pressure Body height Body weight Temperature SpO2 Blood Sugar Pulse Respirations 625 57131 9 65.00 mm[Hg] - Lying Down 112.00 mm[Hg] - Lying Down 98.60 Tympanic 94.00 % 80.00/ min 18.00/min 625 88824 8 65.00 mm[Hg] - Sitting 112.00 mm[Hg] - Sitting 98.60 Tympanic 80.00/ min 18.00/min Immunizations Vaccine Date Status COVID-19 05/25/2020 Completed COVID-19 06/15/2020 Completed
--- OUTSIDE RECORDS SUMMARY | 2024-04-08 21:58 | External Medical Summary | Continuity Of Care Document ---
Author Name Unknown Address [address] [address] Organization [facility] () Care Team Providers Care Health Promotion Specialist Name Role Phone DO Woody Amy Primary Care Provider [phone]
--- OUTSIDE RECORDS SUMMARY | 2024-04-08 21:58 | External Medical Summary | Continuity Of Care Document ---
Author Name Unknown Address [address] [address] Organization [facility] () Care Team Providers Care Sales Support Specialist Name Role Phone DO Woody Amy Primary Care Provider [phone] Allergies Allergy Reaction Start Date End Date Status LORAZEPAM Active PENICILLINS Hives, Rash Active Medications Medication Instructions Dosage Start Date End Date Status Order Date Drug Code Frequency Route of Admin Diagnosis Code Substitutions Allowed Aspercreme (lidocaine HCl) 4 % topical 4 % Topical Three times daily as needed For pain to feet and legs 4 % 11/08 Inactiv e 2023 08642 47188 0 Three times daily as needed Topica l False Citalopram 20 mg tablet [generic] 20 mg By Mouth Once daily For anxiety 20 mg 11/08 Inactiv e 2023 77499 91436 1 Once daily By Mouth False Dulcolax (bisacodyl) 10 mg rectal suppository 10 mg Rectal Daily as needed For constipation 10 mg 2023 Active 2023 47826 92659 1 Daily as needed Rectal False Citalopram 20 mg tablet [generic] 20 mg By Mouth Once daily For anxiety 20 mg 2023 Active 2023 07277 33798 1 Once daily By Mouth False Aspercreme (lidocaine HCl) 4 % topical 4 % Topical Three times daily as needed For pain to feet and legs 4 % 2023 Active 2023 61574 32363 0 Three times daily as needed Topica l False Haloperidol lactate 2 mg/mL oral concentrate [generic] 0.5ml By Mouth Every 4 hours as needed For agitation 0.5ml 2023 Active 2023 93732 44707 4 Every 4 hours as needed By Mouth False Haloperidol lactate 2 mg/mL oral concentrate [generic] 0.25ml By Mouth Every 4 days as needed For nausea/vomiti ng 0.25ml 2023 Active 2023 75380 10296 4 Every 4 days as needed By Mouth False Ipratropium 0.5 mg-albutero l 3 mg (2.5 mg base)/3 mL nebulizatio n soln [generic] 3ml Inhalation Every 6 hours as needed via nebulization route For shortness of breath 3ml 2023 Active 2023 39771 60258 3 Every 6 hours as needed Inhala tion False Lactulose 10 gram/15 mL (15 mL) oral solution [generic] 10 gram/15 m By Mouth Once daily For constipation 10 gram/15 m 2023 Active 2023 66735 93548 0 Once daily By Mouth False Morphine concentrate 100 mg/5 mL (20 mg/mL) oral solution [generic] 0.25ml (5mg) By Mouth Every 2 hours as needed For shortness of breath or pain 0.25ml (5mg) 2023 Active 2023 10179 10040 1 Every 2 hours as needed By Mouth False Pantoprazol e 40 mg tablet,fern yed release [generic] 40 mg By Mouth Once daily For GERD 40 mg 2023 Active 2023 29335 63995 0 Once daily By Mouth False Pregabalin 25 mg capsule [generic] 25 mg By Mouth 3 times a day For pain 25 mg 2023 Active 2023 36530 04308 9 3 times a day By Mouth False Senna 8.8 mg/5 mL oral syrup 5ml By Mouth Twice daily as needed For constipation 5ml 2023 Active 2023 22369 75321 8 Twice daily as needed By Mouth False Tramadol 50 mg tablet [generic] 50 mg By Mouth Twice daily For pain 50 mg 2023 Active 2023 23638 99729 0 Twice daily By Mouth False Tylenol Arthritis Pain 650 mg tablet,exte nded release 650 mg By Mouth 3 times a day For pain 650 mg 11/08 Inactiv e 2023 24686 67362 1 3 times a day By Mouth False Xanax 0.25 mg tablet 0.25 mg By Mouth Three times daily as needed For anxiety 0.25 mg 2023 Active 2023 68531 27163 1 Three times daily as needed By Mouth False Zyprexa 2.5 mg tablet 2.5 mg By Mouth At bedtime For major depressive disorder 2.5 mg 2023 Active 2023 55415 56451 0 At bedtime By Mouth False Tylenol 325 mg tablet 650 mg By Mouth 3 times a day For pain 650 mg 2023 Active 2023 69788 42925 0 3 times a day By Mouth False VITAL SIGNS Date Time Diastolic blood pressure Systolic blood pressure Body height Body weight Temperature SpO2 Blood Sugar Pulse Respirations 625 36525 9 65.00 mm[Hg] - Lying Down 112.00 mm[Hg] - Lying Down 98.60 Tympanic 94.00 % 80.00/ min 18.00/min 625 82704 8 65.00 mm[Hg] - Sitting 112.00 mm[Hg] - Sitting 98.60 Tympanic 80.00/ min 18.00/min Immunizations Vaccine Date Status COVID-19 05/25/2020 Completed COVID-19 06/15/2020 Completed
--- OUTSIDE RECORDS SUMMARY | 2024-04-08 21:58 | External Medical Summary | Continuity Of Care Document ---
Author Name Unknown Address [address] [address] Organization [facility] () Care Team Providers Care Rattle Leak And Squeak Repairer Name Role Phone DO Woody Amy Primary Care Provider [phone] Allergies Allergy Reaction Start Date End Date Status LORAZEPAM Active PENICILLINS Hives, Rash Active Medications Medication Instructions Dosage Start Date End Date Status Order Date Drug Code Frequency Route of Admin Diagnosis Code Substitutions Allowed Aspercreme (lidocaine HCl) 4 % topical 4 % Topical Three times daily as needed For pain to feet and legs 4 % 11/08 Inactiv e 2023 77427 91301 0 Three times daily as needed Topica l False Citalopram 20 mg tablet [generic] 20 mg By Mouth Once daily For anxiety 20 mg 11/08 Inactiv e 2023 30699 91312 1 Once daily By Mouth False Dulcolax (bisacodyl) 10 mg rectal suppository 10 mg Rectal Daily as needed For constipation 10 mg 2023 Active 2023 60463 99306 1 Daily as needed Rectal False Citalopram 20 mg tablet [generic] 20 mg By Mouth Once daily For anxiety 20 mg 2023 Active 2023 10406 47950 1 Once daily By Mouth False Aspercreme (lidocaine HCl) 4 % topical 4 % Topical Three times daily as needed For pain to feet and legs 4 % 2023 Active 2023 58737 54399 0 Three times daily as needed Topica l False Haloperidol lactate 2 mg/mL oral concentrate [generic] 0.5ml By Mouth Every 4 hours as needed For agitation 0.5ml 2023 Active 2023 18150 17589 4 Every 4 hours as needed By Mouth False Haloperidol lactate 2 mg/mL oral concentrate [generic] 0.25ml By Mouth Every 4 days as needed For nausea/vomiti ng 0.25ml 2023 Active 2023 25680 25589 4 Every 4 days as needed By Mouth False Ipratropium 0.5 mg-albutero l 3 mg (2.5 mg base)/3 mL nebulizatio n soln [generic] 3ml Inhalation Every 6 hours as needed via nebulization route For shortness of breath 3ml 2023 Active 2023 38070 60166 3 Every 6 hours as needed Inhala tion False Lactulose 10 gram/15 mL (15 mL) oral solution [generic] 10 gram/15 m By Mouth Once daily For constipation 10 gram/15 m 2023 Active 2023 51098 16922 0 Once daily By Mouth False Morphine concentrate 100 mg/5 mL (20 mg/mL) oral solution [generic] 0.25ml (5mg) By Mouth Every 2 hours as needed For shortness of breath or pain 0.25ml (5mg) 2023 Active 2023 70979 35020 1 Every 2 hours as needed By Mouth False Pantoprazol e 40 mg tablet,fern yed release [generic] 40 mg By Mouth Once daily For GERD 40 mg 2023 Active 2023 99715 74172 0 Once daily By Mouth False Pregabalin 25 mg capsule [generic] 25 mg By Mouth 3 times a day For pain 25 mg 2023 Active 2023 05089 28083 9 3 times a day By Mouth False Senna 8.8 mg/5 mL oral syrup 5ml By Mouth Twice daily as needed For constipation 5ml 11/09 Inactiv e 2023 59837 37151 8 Twice daily as needed By Mouth False Tramadol 50 mg tablet [generic] 50 mg By Mouth Twice daily For pain 50 mg 2023 Active 2023 70363 67777 0 Twice daily By Mouth False Tylenol Arthritis Pain 650 mg tablet,exte nded release 650 mg By Mouth 3 times a day For pain 650 mg 11/08 Inactiv e 2023 78085 56424 1 3 times a day By Mouth False Xanax 0.25 mg tablet 0.25 mg By Mouth Three times daily as needed For anxiety 0.25 mg 2023 Active 2023 55025 85951 1 Three times daily as needed By Mouth False Zyprexa 2.5 mg tablet 2.5 mg By Mouth At bedtime For major depressive disorder 2.5 mg 2023 Active 20232 58273 0 At bedtime By Mouth False Tylenol 325 mg tablet 650 mg By Mouth 3 times a day For pain 650 mg 11/09 Inactiv e 2023 50542 12826 0 3 times a day By Mouth False Tylenol Extra Strength 500 mg tablet 500 mg By Mouth 3 times a day For pain 500 mg 2023 Active 2023 71153 32231 6 3 times a day By Mouth False Senna 8.8 mg/5 mL oral syrup Twice daily administer senna 5mL For constipation 8.8 mg/5 mL 2023 Active 2023 62713 66798 8 Twice daily By Mouth False Problems [...] Temperature SpO2 Blood Sugar Pulse Respirations 625 38025 9 65.00 mm[Hg] - Lying Down 112.00 mm[Hg] - Lying Down 98.60 Tympanic 94.00 % 80.00/ min 18.00/min 28563 625 68145 8 65.00 mm[Hg] - Sitting 112.00 mm[Hg] - Sitting 98.60 Tympanic 80.00/ min 18.00/min 27301 626 77089 0 97.90 Tympanic 82.00/ min 18.00/min 96231 626 95194 8 62.00 mm[Hg] - Sitting 114.00 mm[Hg] - Sitting Immunizations Vaccine Date Status COVID-19 05/25/2020 Completed COVID-19 06/15/2020 Completed Influenza 05/12/2023 Completed (PCV20)Pneumococcal 05/12/2023 Completed
--- OUTSIDE RECORDS SUMMARY | 2024-04-08 21:58 | External Medical Summary | Continuity Of Care Document ---
Author Name Unknown Address [address] [address] Organization [facility] () Care Team Providers Care Technology Program Manager Name Role Phone DO Woody Amy Primary Care Provider [phone] Allergies Allergy Reaction Start Date End Date Status LORAZEPAM Active PENICILLINS Hives, Rash Active Medications Medication Instructions Dosage Start Date End Date Status Order Date Drug Code Frequency Route of Admin Diagnosis Code Substitutions Allowed Aspercreme (lidocaine HCl) 4 % topical 4 % Topical Three times daily as needed For pain to feet and legs 4 % 11/08 Inactiv e 2023 44619 33797 0 Three times daily as needed Topica l False Citalopram 20 mg tablet [generic] 20 mg By Mouth Once daily For anxiety 20 mg 11/08 Inactiv e 2023 55115 60172 1 Once daily By Mouth False Dulcolax (bisacodyl) 10 mg rectal suppository 10 mg Rectal Daily as needed For constipation 10 mg 2023 Active 2023 71040 37737 1 Daily as needed Rectal False Citalopram 20 mg tablet [generic] 20 mg By Mouth Once daily For anxiety 20 mg 2023 Active 2023 64489 79571 1 Once daily By Mouth False Aspercreme (lidocaine HCl) 4 % topical 4 % Topical Three times daily as needed For pain to feet and legs 4 % 2023 Active 2023 32892 93324 0 Three times daily as needed Topica l False Haloperidol lactate 2 mg/mL oral concentrate [generic] 0.5ml By Mouth Every 4 hours as needed For agitation 0.5ml 2023 Active 2023 26349 03327 4 Every 4 hours as needed By Mouth False Haloperidol lactate 2 mg/mL oral concentrate [generic] 0.25ml By Mouth Every 4 days as needed For nausea/vomiti ng 0.25ml 2023 Active 2023 17227 02749 4 Every 4 days as needed By Mouth False Ipratropium 0.5 mg-albutero l 3 mg (2.5 mg base)/3 mL nebulizatio n soln [generic] 3ml Inhalation Every 6 hours as needed via nebulization route For shortness of breath 3ml 2023 Active 2023 64611 74865 3 Every 6 hours as needed Inhala tion False Lactulose 10 gram/15 mL (15 mL) oral solution [generic] 10 gram/15 m By Mouth Once daily For constipation 10 gram/15 m 2023 Active 2023 40144 86108 0 Once daily By Mouth False Morphine concentrate 100 mg/5 mL (20 mg/mL) oral solution [generic] 0.25ml (5mg) By Mouth Every 2 hours as needed For shortness of breath or pain 0.25ml (5mg) 2023 Active 2023 76475 88033 1 Every 2 hours as needed By Mouth False Pantoprazol e 40 mg tablet,fern yed release [generic] 40 mg By Mouth Once daily For GERD 40 mg 2023 Active 2023 61298 70923 0 Once daily By Mouth False Pregabalin 25 mg capsule [generic] 25 mg By Mouth 3 times a day For pain 25 mg 2023 Active 2023 97151 12094 9 3 times a day By Mouth False Senna 8.8 mg/5 mL oral syrup 5ml By Mouth Twice daily as needed For constipation 5ml 2023 Active 2023 11210 72877 8 Twice daily as needed By Mouth False Tramadol 50 mg tablet [generic] 50 mg By Mouth Twice daily For pain 50 mg 2023 Active 2023 33443 75175 0 Twice daily By Mouth False Tylenol Arthritis Pain 650 mg tablet,exte nded release 650 mg By Mouth 3 times a day For pain 650 mg 11/08 Inactiv e 2023 64044 43343 1 3 times a day By Mouth False Xanax 0.25 mg tablet 0.25 mg By Mouth Three times daily as needed For anxiety 0.25 mg 2023 Active 2023 00990 04470 1 Three times daily as needed By Mouth False Zyprexa 2.5 mg tablet 2.5 mg By Mouth At bedtime For major depressive disorder 2.5 mg 2023 Active 2023 43612 71854 0 At bedtime By Mouth False Tylenol 325 mg tablet 650 mg By Mouth 3 times a day For pain 650 mg 2023 Active 2023 48612 99002 0 3 times a day By Mouth False VITAL SIGNS Date Time Diastolic blood pressure Systolic blood pressure Body height Body weight Temperature SpO2 Blood Sugar Pulse Respirations 625 46325 9 65.00 mm[Hg] - Lying Down 112.00 mm[Hg] - Lying Down 98.60 Tympanic 94.00 % 80.00/ min 18.00/min 625 75831 8 65.00 mm[Hg] - Sitting 112.00 mm[Hg] - Sitting 98.60 Tympanic 80.00/ min 18.00/min Immunizations Vaccine Date Status COVID-19 05/25/2020 Completed COVID-19 06/15/2020 Completed Influenza 05/12/2023 Completed (PCV20)Pneumococcal 05/12/2023 Completed
--- OUTSIDE RECORDS SUMMARY | 2024-04-08 21:58 | External Medical Summary | Continuity Of Care Document ---
Author Name Unknown Address [address] [address] Organization [facility] () Care Team Providers Care Forest Botany Instructor Name Role Phone DO Woody Amy Primary Care Provider [phone] Allergies Allergy Reaction Start Date End Date Status LORAZEPAM Active PENICILLINS Hives, Rash Active Medications Medication Instructions Dosage Start Date End Date Status Order Date Drug Code Frequency Route of Admin Diagnosis Code Substitutions Allowed Aspercreme (lidocaine HCl) 4 % topical 4 % Topical Three times daily as needed For pain to feet and legs 4 % 11/08 Inactiv e 2023 47986 02318 0 Three times daily as needed Topica l False Citalopram 20 mg tablet [generic] 20 mg By Mouth Once daily For anxiety 20 mg 11/08 Inactiv e 2023 97800 93624 1 Once daily By Mouth False Dulcolax (bisacodyl) 10 mg rectal suppository 10 mg Rectal Daily as needed For constipation 10 mg 2023 Active 2023 08652 79489 1 Daily as needed Rectal False Citalopram 20 mg tablet [generic] 20 mg By Mouth Once daily For anxiety 20 mg 2023 Active 2023 95921 36415 1 Once daily By Mouth False Aspercreme (lidocaine HCl) 4 % topical 4 % Topical Three times daily as needed For pain to feet and legs 4 % 2023 Active 2023 00668 82680 0 Three times daily as needed Topica l False Haloperidol lactate 2 mg/mL oral concentrate [generic] 0.5ml By Mouth Every 4 hours as needed For agitation 0.5ml 2023 Active 2023 15617 72707 4 Every 4 hours as needed By Mouth False Haloperidol lactate 2 mg/mL oral concentrate [generic] 0.25ml By Mouth Every 4 days as needed For nausea/vomiti ng 0.25ml 2023 Active 2023 59772 17867 4 Every 4 days as needed By Mouth False Ipratropium 0.5 mg-albutero l 3 mg (2.5 mg base)/3 mL nebulizatio n soln [generic] 3ml Inhalation Every 6 hours as needed via nebulization route For shortness of breath 3ml 2023 Active 2023 86070 53994 3 Every 6 hours as needed Inhala tion False Lactulose 10 gram/15 mL (15 mL) oral solution [generic] 10 gram/15 m By Mouth Once daily For constipation 10 gram/15 m 2023 Active 2023 43596 94121 0 Once daily By Mouth False Morphine concentrate 100 mg/5 mL (20 mg/mL) oral solution [generic] 0.25ml (5mg) By Mouth Every 2 hours as needed For shortness of breath or pain 0.25ml (5mg) 2023 Active 2023 55984 98569 1 Every 2 hours as needed By Mouth False Pantoprazol e 40 mg tablet,fern yed release [generic] 40 mg By Mouth Once daily For GERD 40 mg 2023 Active 2023 52685 05689 0 Once daily By Mouth False Pregabalin 25 mg capsule [generic] 25 mg By Mouth 3 times a day For pain 25 mg 2023 Active 2023 86703 85445 9 3 times a day By Mouth False Senna 8.8 mg/5 mL oral syrup 5ml By Mouth Twice daily as needed For constipation 5ml 11/09 Inactiv e 2023 21856 20965 8 Twice daily as needed By Mouth False Tramadol 50 mg tablet [generic] 50 mg By Mouth Twice daily For pain 50 mg 2023 Active 2023 74333 33327 0 Twice daily By Mouth False Tylenol Arthritis Pain 650 mg tablet,exte nded release 650 mg By Mouth 3 times a day For pain 650 mg 11/08 Inactiv e 2023 45644 99025 1 3 times a day By Mouth False Xanax 0.25 mg tablet 0.25 mg By Mouth Three times daily as needed For anxiety 0.25 mg 2023 Active 2023 45376 04569 1 Three times daily as needed By Mouth False Zyprexa 2.5 mg tablet 2.5 mg By Mouth At bedtime For major depressive disorder 2.5 mg 2023 Active 20232 43932 0 At bedtime By Mouth False Tylenol 325 mg tablet 650 mg By Mouth 3 times a day For pain 650 mg 11/09 Inactiv e 2023 63704 80986 0 3 times a day By Mouth False Tylenol Extra Strength 500 mg tablet 500 mg By Mouth 3 times a day For pain 500 mg 2023 Active 2023 07868 48059 6 3 times a day By Mouth False Senna 8.8 mg/5 mL oral syrup Twice daily administer senna 5mL For constipation 8.8 mg/5 mL 2023 Active 2023 60965 37039 8 Twice daily By Mouth False Problems [...] Temperature SpO2 Blood Sugar Pulse Respirations 625 01656 9 65.00 mm[Hg] - Lying Down 112.00 mm[Hg] - Lying Down 98.60 Tympanic 94.00 % 80.00/ min 18.00/min 66636 625 25101 8 65.00 mm[Hg] - Sitting 112.00 mm[Hg] - Sitting 98.60 Tympanic 80.00/ min 18.00/min 36453 626 01734 0 97.90 Tympanic 82.00/ min 18.00/min 87089 626 96654 8 62.00 mm[Hg] - Sitting 114.00 mm[Hg] - Sitting 43409 626 99648 4 66.00 mm[Hg] - Sitting 120.00 mm[Hg] - Sitting 98.10 Tympanic 78.00/ min 18.00/min 57888 627 91953 6 70.00 mm[Hg] - Sitting 122.00 mm[Hg] - Sitting 97.80 Tympanic 68.00/ min 18.00/min 18296 627 16917 8 143.00 NI Immunizations Vaccine Date Status COVID-19 05/25/2020 Completed COVID-19 06/15/2020 Completed Influenza 05/12/2023 Completed (PCV20)Pneumococcal 05/12/2023 Completed
--- OUTSIDE RECORDS SUMMARY | 2024-04-08 21:58 | External Medical Summary | Continuity Of Care Document ---
Author Name Unknown Address [address] [address] Organization [facility] () Care Team Providers Care Garment Parts Cutter Hand Name Role Phone DO Woody Amy Primary Care Provider [phone] Allergies Allergy Reaction Start Date End Date Status LORAZEPAM Active PENICILLINS Hives, Rash Active Medications Medication Instructions Dosage Start Date End Date Status Order Date Drug Code Frequency Route of Admin Diagnosis Code Substitutions Allowed Aspercreme (lidocaine HCl) 4 % topical 4 % Topical Three times daily as needed For pain to feet and legs 4 % 11/08 Inactiv e 2023 44124 62088 0 Three times daily as needed Topica l False Citalopram 20 mg tablet [generic] 20 mg By Mouth Once daily For anxiety 20 mg 11/08 Inactiv e 2023 87859 47202 1 Once daily By Mouth False Dulcolax (bisacodyl) 10 mg rectal suppository 10 mg Rectal Daily as needed For constipation 10 mg 2023 Active 2023 03212 06368 1 Daily as needed Rectal False Citalopram 20 mg tablet [generic] 20 mg By Mouth Once daily For anxiety 20 mg 2023 Active 2023 52113 47751 1 Once daily By Mouth False Aspercreme (lidocaine HCl) 4 % topical 4 % Topical Three times daily as needed For pain to feet and legs 4 % 2023 Active 2023 20395 68377 0 Three times daily as needed Topica l False Haloperidol lactate 2 mg/mL oral concentrate [generic] 0.5ml By Mouth Every 4 hours as needed For agitation 0.5ml 2023 Active 2023 20118 87593 4 Every 4 hours as needed By Mouth False Haloperidol lactate 2 mg/mL oral concentrate [generic] 0.25ml By Mouth Every 4 days as needed For nausea/vomiti ng 0.25ml 2023 Active 2023 59728 72660 4 Every 4 days as needed By Mouth False Ipratropium 0.5 mg-albutero l 3 mg (2.5 mg base)/3 mL nebulizatio n soln [generic] 3ml Inhalation Every 6 hours as needed via nebulization route For shortness of breath 3ml 2023 Active 2023 64758 29276 3 Every 6 hours as needed Inhala tion False Lactulose 10 gram/15 mL (15 mL) oral solution [generic] 10 gram/15 m By Mouth Once daily For constipation 10 gram/15 m 2023 Active 2023 57266 66970 0 Once daily By Mouth False Morphine concentrate 100 mg/5 mL (20 mg/mL) oral solution [generic] 0.25ml (5mg) By Mouth Every 2 hours as needed For shortness of breath or pain 0.25ml (5mg) 2023 Active 2023 83897 16037 1 Every 2 hours as needed By Mouth False Pantoprazol e 40 mg tablet,fern yed release [generic] 40 mg By Mouth Once daily For GERD 40 mg 2023 Active 2023 95401 94189 0 Once daily By Mouth False Pregabalin 25 mg capsule [generic] 25 mg By Mouth 3 times a day For pain 25 mg 2023 Active 2023 03655 17258 9 3 times a day By Mouth False Senna 8.8 mg/5 mL oral syrup 5ml By Mouth Twice daily as needed For constipation 5ml 11/09 Inactiv e 2023 70496 62894 8 Twice daily as needed By Mouth False Tramadol 50 mg tablet [generic] 50 mg By Mouth Twice daily For pain 50 mg 2023 Active 2023 00468 09866 0 Twice daily By Mouth False Tylenol Arthritis Pain 650 mg tablet,exte nded release 650 mg By Mouth 3 times a day For pain 650 mg 11/08 Inactiv e 2023 58756 78827 1 3 times a day By Mouth False Xanax 0.25 mg tablet 0.25 mg By Mouth Three times daily as needed For anxiety 0.25 mg 2023 Active 2023 17531 42838 1 Three times daily as needed By Mouth False Zyprexa 2.5 mg tablet 2.5 mg By Mouth At bedtime For major depressive disorder 2.5 mg 2023 Active 20232 38499 0 At bedtime By Mouth False Tylenol 325 mg tablet 650 mg By Mouth 3 times a day For pain 650 mg 11/09 Inactiv e 2023 78393 97225 0 3 times a day By Mouth False Tylenol Extra Strength 500 mg tablet 500 mg By Mouth 3 times a day For pain 500 mg 2023 Active 2023 96141 40909 6 3 times a day By Mouth False Senna 8.8 mg/5 mL oral syrup Twice daily administer senna 5mL For constipation 8.8 mg/5 mL 2023 Active 2023 02587 99438 8 Twice daily By Mouth False Problems [...] Temperature SpO2 Blood Sugar Pulse Respirations 625 28023 9 65.00 mm[Hg] - Lying Down 112.00 mm[Hg] - Lying Down 98.60 Tympanic 94.00 % 80.00/ min 18.00/min 03982 625 88087 8 65.00 mm[Hg] - Sitting 112.00 mm[Hg] - Sitting 98.60 Tympanic 80.00/ min 18.00/min 52668 626 31158 0 97.90 Tympanic 82.00/ min 18.00/min 24530 626 83067 8 62.00 mm[Hg] - Sitting 114.00 mm[Hg] - Sitting Immunizations Vaccine Date Status COVID-19 05/25/2020 Completed COVID-19 06/15/2020 Completed Influenza 05/12/2023 Completed (PCV20)Pneumococcal 05/12/2023 Completed
--- OUTSIDE RECORDS SUMMARY | 2024-04-08 21:58 | External Medical Summary | Continuity Of Care Document ---
Author Name Unknown Address [address] [address] Organization [facility] () Care Team Providers Care Student Recruiter Name Role Phone DO Woody Amy Primary Care Provider [phone] Allergies Allergy Reaction Start Date End Date Status LORAZEPAM Active PENICILLINS Hives, Rash Active
--- OUTSIDE RECORDS SUMMARY | 2024-04-08 21:58 | External Medical Summary | Continuity Of Care Document ---
Author Name Unknown Address [address] [address] Organization [facility] () Care Team Providers Care Paper Twister Name Role Phone DO Woody Amy Primary Care Provider [phone] Allergies Allergy Reaction Start Date End Date Status LORAZEPAM Active PENICILLINS Hives, Rash Active Medications Medication Instructions Dosage Start Date End Date Status Order Date Drug Code Frequency Route of Admin Diagnosis Code Substitutions Allowed Aspercreme (lidocaine HCl) 4 % topical 4 % Topical Three times daily as needed For pain to feet and legs 4 % 11/08 Inactiv e 2023 54876 75003 0 Three times daily as needed Topica l False Citalopram 20 mg tablet [generic] 20 mg By Mouth Once daily For anxiety 20 mg 11/08 Inactiv e 2023 45314 73207 1 Once daily By Mouth False Dulcolax (bisacodyl) 10 mg rectal suppository 10 mg Rectal Daily as needed For constipation 10 mg 2023 Active 2023 54822 71801 1 Daily as needed Rectal False Citalopram 20 mg tablet [generic] 20 mg By Mouth Once daily For anxiety 20 mg 2023 Active 2023 86967 70015 1 Once daily By Mouth False Aspercreme (lidocaine HCl) 4 % topical 4 % Topical Three times daily as needed For pain to feet and legs 4 % 2023 Active 2023 92684 73437 0 Three times daily as needed Topica l False Haloperidol lactate 2 mg/mL oral concentrate [generic] 0.5ml By Mouth Every 4 hours as needed For agitation 0.5ml 2023 Active 2023 01394 15197 4 Every 4 hours as needed By Mouth False Haloperidol lactate 2 mg/mL oral concentrate [generic] 0.25ml By Mouth Every 4 days as needed For nausea/vomiti ng 0.25ml 2023 Active 2023 60972 40300 4 Every 4 days as needed By Mouth False Ipratropium 0.5 mg-albutero l 3 mg (2.5 mg base)/3 mL nebulizatio n soln [generic] 3ml Inhalation Every 6 hours as needed via nebulization route For shortness of breath 3ml 2023 Active 2023 80733 54406 3 Every 6 hours as needed Inhala tion False Lactulose 10 gram/15 mL (15 mL) oral solution [generic] 10 gram/15 m By Mouth Once daily For constipation 10 gram/15 m 2023 Active 2023 31909 89910 0 Once daily By Mouth False Morphine concentrate 100 mg/5 mL (20 mg/mL) oral solution [generic] 0.25ml (5mg) By Mouth Every 2 hours as needed For shortness of breath or pain 0.25ml (5mg) 2023 Active 2023 13697 39666 1 Every 2 hours as needed By Mouth False Pantoprazol e 40 mg tablet,fern yed release [generic] 40 mg By Mouth Once daily For GERD 40 mg 2023 Active 2023 12066 83211 0 Once daily By Mouth False Pregabalin 25 mg capsule [generic] 25 mg By Mouth 3 times a day For pain 25 mg 2023 Active 2023 63550 66741 9 3 times a day By Mouth False Senna 8.8 mg/5 mL oral syrup 5ml By Mouth Twice daily as needed For constipation 5ml 2023 Active 2023 76184 12919 8 Twice daily as needed By Mouth False Tramadol 50 mg tablet [generic] 50 mg By Mouth Twice daily For pain 50 mg 2023 Active 2023 19263 18962 0 Twice daily By Mouth False Tylenol Arthritis Pain 650 mg tablet,exte nded release 650 mg By Mouth 3 times a day For pain 650 mg 2023 Active 2023 13655 71244 1 3 times a day By Mouth False Xanax 0.25 mg tablet 0.25 mg By Mouth Three times daily as needed For anxiety 0.25 mg 2023 Active 2023 15076 52356 1 Three times daily as needed By Mouth False Zyprexa 2.5 mg tablet 2.5 mg By Mouth At bedtime For major depressive disorder 2.5 mg 2023 Active 2023 62354 95238 0 At bedtime By Mouth False VITAL SIGNS Date Time Diastolic blood pressure Systolic blood pressure Body height Body weight Temperature SpO2 Blood Sugar Pulse Respirations 625 00919 9 65.00 mm[Hg] - Lying Down 112.00 mm[Hg] - Lying Down 98.60 Tympanic 94.00 % 80.00/ min 18.00/min 625 30557 8 65.00 mm[Hg] - Sitting 112.00 mm[Hg] - Sitting 98.60 Tympanic 80.00/ min 18.00/min Immunizations Vaccine Date Status COVID-19 05/25/2020 Completed COVID-19 06/15/2020 Completed
--- OUTSIDE RECORDS SUMMARY | 2024-04-08 21:58 | External Medical Summary | Continuity Of Care Document ---
Author Name Unknown Address [address] [place] [address] Organization [facility] () Care Team Providers Care Photo Retoucher Name Role Phone DO Woody Amy Primary Care Provider [phone] Allergies Allergy Reaction Start Date End Date Status LORAZEPAM Active PENICILLINS Hives, Rash Active Medications Medication Instructions Dosage Start Date End Date Status Order Date Drug Code Frequency Route of Admin Diagnosis Code Substitutions Allowed Aspercreme (lidocaine HCl) 4 % topical 4 % Topical Three times daily as needed For pain to feet and legs 4 % 11/08 Inactiv e 2023 13283 95681 0 Three times daily as needed Topica l False Citalopram 20 mg tablet [generic] 20 mg By Mouth Once daily For anxiety 20 mg 11/08 Inactiv e 2023 85699 21686 1 Once daily By Mouth False Dulcolax (bisacodyl) 10 mg rectal suppository 10 mg Rectal Daily as needed For constipation 10 mg 2023 Active 2023 23007 09853 1 Daily as needed Rectal False Citalopram 20 mg tablet [generic] 20 mg By Mouth Once daily For anxiety 20 mg 2023 Active 2023 34478 79227 1 Once daily By Mouth False Aspercreme (lidocaine HCl) 4 % topical 4 % Topical Three times daily as needed For pain to feet and legs 4 % 2023 Active 2023 16731 53036 0 Three times daily as needed Topica l False Immunizations Vaccine Date Status COVID-19 05/25/2020 Completed COVID-19 06/15/2020 Completed
--- OUTSIDE RECORDS SUMMARY | 2024-04-08 21:58 | External Medical Summary | Continuity Of Care Document ---
Author Name Unknown Address [address] [address] Organization [facility] () Care Team Providers Care Corporate Investigator Name Role Phone DO Woody Amy Primary Care Provider [phone] Allergies Allergy Reaction Start Date End Date Status LORAZEPAM Active PENICILLINS Hives, Rash Active Medications Medication Instructions Dosage Start Date End Date Status Order Date Drug Code Frequency Route of Admin Diagnosis Code Substitutions Allowed Aspercreme (lidocaine HCl) 4 % topical 4 % Topical Three times daily as needed For pain to feet and legs 4 % 11/08 Inactiv e 2023 41678 61061 0 Three times daily as needed Topica l False Citalopram 20 mg tablet [generic] 20 mg By Mouth Once daily For anxiety 20 mg 11/08 Inactiv e 2023 38113 77772 1 Once daily By Mouth False Dulcolax (bisacodyl) 10 mg rectal suppository 10 mg Rectal Daily as needed For constipation 10 mg 2023 Active 2023 41113 46353 1 Daily as needed Rectal False Citalopram 20 mg tablet [generic] 20 mg By Mouth Once daily For anxiety 20 mg 2023 Active 2023 28126 84403 1 Once daily By Mouth False Aspercreme (lidocaine HCl) 4 % topical 4 % Topical Three times daily as needed For pain to feet and legs 4 % 2023 Active 2023 34164 74983 0 Three times daily as needed Topica l False Haloperidol lactate 2 mg/mL oral concentrate [generic] 0.5ml By Mouth Every 4 hours as needed For agitation 0.5ml 2023 Active 2023 86320 17663 4 Every 4 hours as needed By Mouth False Haloperidol lactate 2 mg/mL oral concentrate [generic] 0.25ml By Mouth Every 4 days as needed For nausea/vomiti ng 0.25ml 2023 Active 2023 61447 55535 4 Every 4 days as needed By Mouth False Ipratropium 0.5 mg-albutero l 3 mg (2.5 mg base)/3 mL nebulizatio n soln [generic] 3ml Inhalation Every 6 hours as needed via nebulization route For shortness of breath 3ml 2023 Active 2023 59148 86704 3 Every 6 hours as needed Inhala tion False Lactulose 10 gram/15 mL (15 mL) oral solution [generic] 10 gram/15 m By Mouth Once daily For constipation 10 gram/15 m 2023 Active 2023 64488 51903 0 Once daily By Mouth False Morphine concentrate 100 mg/5 mL (20 mg/mL) oral solution [generic] 0.25ml (5mg) By Mouth Every 2 hours as needed For shortness of breath or pain 0.25ml (5mg) 2023 Active 2023 28757 46479 1 Every 2 hours as needed By Mouth False Pantoprazol e 40 mg tablet,fern yed release [generic] 40 mg By Mouth Once daily For GERD 40 mg 2023 Active 2023 60058 61847 0 Once daily By Mouth False Pregabalin 25 mg capsule [generic] 25 mg By Mouth 3 times a day For pain 25 mg 2023 Active 2023 11171 92927 9 3 times a day By Mouth False Senna 8.8 mg/5 mL oral syrup 5ml By Mouth Twice daily as needed For constipation 5ml 2023 Active 2023 38670 91811 8 Twice daily as needed By Mouth False Tramadol 50 mg tablet [generic] 50 mg By Mouth Twice daily For pain 50 mg 2023 Active 2023 68724 05196 0 Twice daily By Mouth False Tylenol Arthritis Pain 650 mg tablet,exte nded release 650 mg By Mouth 3 times a day For pain 650 mg 11/08 Inactiv e 2023 02044 40538 1 3 times a day By Mouth False Xanax 0.25 mg tablet 0.25 mg By Mouth Three times daily as needed For anxiety 0.25 mg 2023 Active 2023 70705 23487 1 Three times daily as needed By Mouth False Zyprexa 2.5 mg tablet 2.5 mg By Mouth At bedtime For major depressive disorder 2.5 mg 2023 Active 20232 15985 0 At bedtime By Mouth False Tylenol 325 mg tablet 650 mg By Mouth 3 times a day For pain 650 mg 11/09 Inactiv e 2023 99473 75670 0 3 times a day By Mouth False Tylenol Extra Strength 500 mg tablet 500 mg By Mouth 3 times a day For pain 500 mg 2023 Active 2023 57284 26957 6 3 times a day By Mouth False Problems Code Description Start [...] 11/09/2023 00 Active I51.9 Heart disease, unspecified 11/09/2023/000 0 Active I10. Essential (primary) hypertension 11/09/2023 [...] Temperature SpO2 Blood Sugar Pulse Respirations 625 28632 9 65.00 mm[Hg] - Lying Down 112.00 mm[Hg] - Lying Down 98.60 Tympanic 94.00 % 80.00/ min 18.00/min 30863 625 22054 8 65.00 mm[Hg] - Sitting 112.00 mm[Hg] - Sitting 98.60 Tympanic 80.00/ min 18.00/min 92290 626 75993 0 97.90 Tympanic 82.00/ min 18.00/min 04891 626 58333 8 62.00 mm[Hg] - Sitting 114.00 mm[Hg] - Sitting Immunizations Vaccine Date Status COVID-19 05/25/2020 Completed COVID-19 06/15/2020 Completed Influenza 05/12/2023 Completed (PCV20)Pneumococcal 05/12/2023 Completed
--- OUTSIDE RECORDS SUMMARY | 2024-04-08 21:58 | External Medical Summary | Continuity Of Care Document ---
Author Name Unknown Address [address] [address] Organization [facility] () Care Team Providers Care Price Economist Name Role Phone DO Woody Amy Primary Care Provider [phone] Allergies Allergy Reaction Start Date End Date Status LORAZEPAM Active PENICILLINS Hives, Rash Active Medications Medication Instructions Dosage Start Date End Date Status Order Date Drug Code Frequency Route of Admin Diagnosis Code Substitutions Allowed Aspercreme (lidocaine HCl) 4 % topical 4 % Topical Three times daily as needed For pain to feet and legs 4 % 11/08 Inactiv e 2023 71324 64928 0 Three times daily as needed Topica l False Citalopram 20 mg tablet [generic] 20 mg By Mouth Once daily For anxiety 20 mg 11/08 Inactiv e 2023 07754 95079 1 Once daily By Mouth False Dulcolax (bisacodyl) 10 mg rectal suppository 10 mg Rectal Daily as needed For constipation 10 mg 2023 Active 2023 50576 59650 1 Daily as needed Rectal False Citalopram 20 mg tablet [generic] 20 mg By Mouth Once daily For anxiety 20 mg 2023 Active 2023 99693 15822 1 Once daily By Mouth False Aspercreme (lidocaine HCl) 4 % topical 4 % Topical Three times daily as needed For pain to feet and legs 4 % 2023 Active 2023 99554 41699 0 Three times daily as needed Topica l False Haloperidol lactate 2 mg/mL oral concentrate [generic] 0.5ml By Mouth Every 4 hours as needed For agitation 0.5ml 2023 Active 2023 45906 57491 4 Every 4 hours as needed By Mouth False Haloperidol lactate 2 mg/mL oral concentrate [generic] 0.25ml By Mouth Every 4 days as needed For nausea/vomiti ng 0.25ml 2023 Active 2023 77755 20154 4 Every 4 days as needed By Mouth False Ipratropium 0.5 mg-albutero l 3 mg (2.5 mg base)/3 mL nebulizatio n soln [generic] 3ml Inhalation Every 6 hours as needed via nebulization route For shortness of breath 3ml 2023 Active 2023 68251 69524 3 Every 6 hours as needed Inhala tion False Lactulose 10 gram/15 mL (15 mL) oral solution [generic] 10 gram/15 m By Mouth Once daily For constipation 10 gram/15 m 2023 Active 2023 42395 88301 0 Once daily By Mouth False Morphine concentrate 100 mg/5 mL (20 mg/mL) oral solution [generic] 0.25ml (5mg) By Mouth Every 2 hours as needed For shortness of breath or pain 0.25ml (5mg) 2023 Active 2023 09082 94225 1 Every 2 hours as needed By Mouth False Pantoprazol e 40 mg tablet,fern yed release [generic] 40 mg By Mouth Once daily For GERD 40 mg 2023 Active 2023 16074 03783 0 Once daily By Mouth False Pregabalin 25 mg capsule [generic] 25 mg By Mouth 3 times a day For pain 25 mg 2023 Active 2023 71592 49996 9 3 times a day By Mouth False Senna 8.8 mg/5 mL oral syrup 5ml By Mouth Twice daily as needed For constipation 5ml 2023 Active 2023 34242 09799 8 Twice daily as needed By Mouth False Tramadol 50 mg tablet [generic] 50 mg By Mouth Twice daily For pain 50 mg 2023 Active 2023 39138 29754 0 Twice daily By Mouth False Tylenol Arthritis Pain 650 mg tablet,exte nded release 650 mg By Mouth 3 times a day For pain 650 mg 11/08 Inactiv e 2023 44376 90828 1 3 times a day By Mouth False Xanax 0.25 mg tablet 0.25 mg By Mouth Three times daily as needed For anxiety 0.25 mg 2023 Active 2023 34773 32698 1 Three times daily as needed By Mouth False Zyprexa 2.5 mg tablet 2.5 mg By Mouth At bedtime For major depressive disorder 2.5 mg 2023 Active 2023 13301 04437 0 At bedtime By Mouth False Tylenol 325 mg tablet 650 mg By Mouth 3 times a day For pain 650 mg 2023 Active 2023 07235 43611 0 3 times a day By Mouth False VITAL SIGNS Date Time Diastolic blood pressure Systolic blood pressure Body height Body weight Temperature SpO2 Blood Sugar Pulse Respirations 625 49101 9 65.00 mm[Hg] - Lying Down 112.00 mm[Hg] - Lying Down 98.60 Tympanic 94.00 % 80.00/ min 18.00/min 625 49072 8 65.00 mm[Hg] - Sitting 112.00 mm[Hg] - Sitting 98.60 Tympanic 80.00/ min 18.00/min Immunizations Vaccine Date Status COVID-19 05/25/2020 Completed COVID-19 06/15/2020 Completed
--- OUTSIDE RECORDS SUMMARY | 2024-04-08 21:58 | External Medical Summary | Continuity Of Care Document ---
Author Name Unknown Address [address] [address] Organization [facility] () Care Team Providers Care Counseling Program Leader Name Role Phone DO Woody Amy Primary Care Provider [phone] Allergies Allergy Reaction Start Date End Date Status LORAZEPAM Active PENICILLINS Hives, Rash Active Medications Medication Instructions Dosage Start Date End Date Status Order Date Drug Code Frequency Route of Admin Diagnosis Code Substitutions Allowed Aspercreme (lidocaine HCl) 4 % topical 4 % Topical Three times daily as needed For pain to feet and legs 4 % 11/08 Inactiv e 2023 30568 59786 0 Three times daily as needed Topica l False Citalopram 20 mg tablet [generic] 20 mg By Mouth Once daily For anxiety 20 mg 11/08 Inactiv e 2023 51739 31411 1 Once daily By Mouth False Dulcolax (bisacodyl) 10 mg rectal suppository 10 mg Rectal Daily as needed For constipation 10 mg 2023 Active 2023 55731 07553 1 Daily as needed Rectal False Citalopram 20 mg tablet [generic] 20 mg By Mouth Once daily For anxiety 20 mg 2023 Active 2023 74463 34416 1 Once daily By Mouth False Aspercreme (lidocaine HCl) 4 % topical 4 % Topical Three times daily as needed For pain to feet and legs 4 % 2023 Active 2023 24956 83302 0 Three times daily as needed Topica l False Haloperidol lactate 2 mg/mL oral concentrate [generic] 0.5ml By Mouth Every 4 hours as needed For agitation 0.5ml 2023 Active 2023 56716 52470 4 Every 4 hours as needed By Mouth False Haloperidol lactate 2 mg/mL oral concentrate [generic] 0.25ml By Mouth Every 4 days as needed For nausea/vomiti ng 0.25ml 2023 Active 2023 77618 26170 4 Every 4 days as needed By Mouth False Ipratropium 0.5 mg-albutero l 3 mg (2.5 mg base)/3 mL nebulizatio n soln [generic] 3ml Inhalation Every 6 hours as needed via nebulization route For shortness of breath 3ml 2023 Active 2023 79926 94359 3 Every 6 hours as needed Inhala tion False Lactulose 10 gram/15 mL (15 mL) oral solution [generic] 10 gram/15 m By Mouth Once daily For constipation 10 gram/15 m 2023 Active 2023 19835 77360 0 Once daily By Mouth False Morphine concentrate 100 mg/5 mL (20 mg/mL) oral solution [generic] 0.25ml (5mg) By Mouth Every 2 hours as needed For shortness of breath or pain 0.25ml (5mg) 2023 Active 2023 12415 31445 1 Every 2 hours as needed By Mouth False Pantoprazol e 40 mg tablet,fern yed release [generic] 40 mg By Mouth Once daily For GERD 40 mg 2023 Active 2023 63413 95316 0 Once daily By Mouth False Pregabalin 25 mg capsule [generic] 25 mg By Mouth 3 times a day For pain 25 mg 2023 Active 2023 44815 19587 9 3 times a day By Mouth False Senna 8.8 mg/5 mL oral syrup 5ml By Mouth Twice daily as needed For constipation 5ml 2023 Active 2023 60737 79383 8 Twice daily as needed By Mouth False Tramadol 50 mg tablet [generic] 50 mg By Mouth Twice daily For pain 50 mg 2023 Active 2023 06672 56426 0 Twice daily By Mouth False Tylenol Arthritis Pain 650 mg tablet,exte nded release 650 mg By Mouth 3 times a day For pain 650 mg 11/08 Inactiv e 2023 39493 23789 1 3 times a day By Mouth False Xanax 0.25 mg tablet 0.25 mg By Mouth Three times daily as needed For anxiety 0.25 mg 2023 Active 2023 04716 21804 1 Three times daily as needed By Mouth False Zyprexa 2.5 mg tablet 2.5 mg By Mouth At bedtime For major depressive disorder 2.5 mg 2023 Active 2023 12977 24781 0 At bedtime By Mouth False Tylenol 325 mg tablet 650 mg By Mouth 3 times a day For pain 650 mg 2023 Active 2023 19232 96806 0 3 times a day By Mouth False VITAL SIGNS Date Time Diastolic blood pressure Systolic blood pressure Body height Body weight Temperature SpO2 Blood Sugar Pulse Respirations 625 79669 9 65.00 mm[Hg] - Lying Down 112.00 mm[Hg] - Lying Down 98.60 Tympanic 94.00 % 80.00/ min 18.00/min 625 73696 8 65.00 mm[Hg] - Sitting 112.00 mm[Hg] - Sitting 98.60 Tympanic 80.00/ min 18.00/min Immunizations Vaccine Date Status COVID-19 05/25/2020 Completed COVID-19 06/15/2020 Completed
--- OUTSIDE RECORDS SUMMARY | 2024-04-08 21:58 | External Medical Summary | Continuity Of Care Document ---
Author Name Unknown Address [address] [address] Organization [facility] () Care Team Providers Care Steam Crane Operator Name Role Phone DO Woody Amy Primary Care Provider [phone] Allergies Allergy Reaction Start Date End Date Status LORAZEPAM Active PENICILLINS Hives, Rash Active Medications Medication Instructions Dosage Start Date End Date Status Order Date Drug Code Frequency Route of Admin Diagnosis Code Substitutions Allowed Aspercreme (lidocaine HCl) 4 % topical 4 % Topical Three times daily as needed For pain to feet and legs 4 % 11/08 Inactiv e 2023 33420 34561 0 Three times daily as needed Topica l False Citalopram 20 mg tablet [generic] 20 mg By Mouth Once daily For anxiety 20 mg 11/08 Inactiv e 2023 71298 79468 1 Once daily By Mouth False Dulcolax (bisacodyl) 10 mg rectal suppository 10 mg Rectal Daily as needed For constipation 10 mg 2023 Active 2023 42722 07102 1 Daily as needed Rectal False Citalopram 20 mg tablet [generic] 20 mg By Mouth Once daily For anxiety 20 mg 2023 Active 2023 51701 30422 1 Once daily By Mouth False Aspercreme (lidocaine HCl) 4 % topical 4 % Topical Three times daily as needed For pain to feet and legs 4 % 2023 Active 2023 55680 81639 0 Three times daily as needed Topica l False Haloperidol lactate 2 mg/mL oral concentrate [generic] 0.5ml By Mouth Every 4 hours as needed For agitation 0.5ml 2023 Active 2023 16438 93747 4 Every 4 hours as needed By Mouth False Haloperidol lactate 2 mg/mL oral concentrate [generic] 0.25ml By Mouth Every 4 days as needed For nausea/vomiti ng 0.25ml 2023 Active 2023 68642 17138 4 Every 4 days as needed By Mouth False Ipratropium 0.5 mg-albutero l 3 mg (2.5 mg base)/3 mL nebulizatio n soln [generic] 3ml Inhalation Every 6 hours as needed via nebulization route For shortness of breath 3ml 2023 Active 2023 51046 12147 3 Every 6 hours as needed Inhala tion False Lactulose 10 gram/15 mL (15 mL) oral solution [generic] 10 gram/15 m By Mouth Once daily For constipation 10 gram/15 m 2023 Active 2023 65228 01085 0 Once daily By Mouth False Morphine concentrate 100 mg/5 mL (20 mg/mL) oral solution [generic] 0.25ml (5mg) By Mouth Every 2 hours as needed For shortness of breath or pain 0.25ml (5mg) 2023 Active 2023 75507 10641 1 Every 2 hours as needed By Mouth False Pantoprazol e 40 mg tablet,fern yed release [generic] 40 mg By Mouth Once daily For GERD 40 mg 2023 Active 2023 46409 34143 0 Once daily By Mouth False Pregabalin 25 mg capsule [generic] 25 mg By Mouth 3 times a day For pain 25 mg 2023 Active 2023 30349 90606 9 3 times a day By Mouth False Senna 8.8 mg/5 mL oral syrup 5ml By Mouth Twice daily as needed For constipation 5ml 2023 Active 2023 74930 14138 8 Twice daily as needed By Mouth False Tramadol 50 mg tablet [generic] 50 mg By Mouth Twice daily For pain 50 mg 2023 Active 2023 34149 98856 0 Twice daily By Mouth False Tylenol Arthritis Pain 650 mg tablet,exte nded release 650 mg By Mouth 3 times a day For pain 650 mg 2023 Active 2023 21326 28125 1 3 times a day By Mouth False Xanax 0.25 mg tablet 0.25 mg By Mouth Three times daily as needed For anxiety 0.25 mg 2023 Active 2023 58055 72660 1 Three times daily as needed By Mouth False Zyprexa 2.5 mg tablet 2.5 mg By Mouth At bedtime For major depressive disorder 2.5 mg 2023 Active 2023 09234 37785 0 At bedtime By Mouth False VITAL SIGNS Date Time Diastolic blood pressure Systolic blood pressure Body height Body weight Temperature SpO2 Blood Sugar Pulse Respirations 625 40496 9 65.00 mm[Hg] - Lying Down 112.00 mm[Hg] - Lying Down 98.60 Tympanic 94.00 % 80.00/ min 18.00/min 625 39128 8 65.00 mm[Hg] - Sitting 112.00 mm[Hg] - Sitting 98.60 Tympanic 80.00/ min 18.00/min Immunizations Vaccine Date Status COVID-19 05/25/2020 Completed COVID-19 06/15/2020 Completed
--- NOTE | 2024-04-08 22:02 | Emergency Department Note ---
Impression & Plan Altered mental status, Acute UTI, Hydronephrosis, Failure of outpatient treatment, Hospice care ED Provider Note NAME: ASHLYN HANLEY AGE: 83 SEX: F : 1940 ARRIVES VIA: Ambulance INFORMANT: [Patient][nursing] ED PROVIDER(S): [Ash Ruggiero MD] CHIEF COMPLAINT: Allergic reaction HISTORY OF PRESENT ILLNESS: The patient is an 83-year-old female who was seen at [facility] recently and diagnosed with a UTI. She was placed on Cipro. The patient was altered this morning and not herself and was taken back to [facility]. They told her to stop the Cipro and use Benadryl. The patient persists with her confusion and was brought to our hospital by ambulance for evaluation. The patient currently complains of some bilateral foot pain but this is chronic. She has no chest pain or headache or shortness of breath. No abdominal pain. There has been no fever, no vomiting. Of note, the patient has a chronic indwelling Ramirez catheter. She is under hospice care and was sent in by the hospice team. PMHx/PSHx/Social Hx: See Below PHYSICAL EXAM: GENERAL: Patient is in no acute distress. HEENT: No acute trauma, normocephalic atraumatic, mucous membranes slightly dry, no nasal congestion. NECK: No stridor, no adenopathy, no meningismus, trachea is midline. LUNGS: Clear to auscultation bilaterally when listening anterior, no wheeze, no rhonchi, breath sounds equal. HEART: Without murmurs gallops or rubs, regular rate and rhythm. ABDOMEN: Soft, nontender, no peritonitis. Ramirez catheter in place. EXTREMITIES: No cyanosis, full range of motion of all the joints without pain or difficulty. NEUROLOGIC: Awake, somewhat sleepy at times, no acute motor or sensory deficits, no focal weakness. SKIN: No jaundice, no diaphoresis. DIFFERENTIAL DIAGNOSIS: Medication reaction, stroke, intracranial bleeding, persistent UTI, electrolyte imbalance, liver or renal failure, among others. EMERGENCY DEPARTMENT PROCEDURES: MEDICAL DECISION MAKING: There is no leukocytosis. The patient does have an anemia however, this appears to be a chronic issue when looking back at previous testing. There was a normal platelet count. No renal failure or significant electrolyte abnormality. Ammonia level was not elevated. No concerning liver enzyme elevation. The patient appeared to be in a euthyroid state. ECG showed a normal sinus rhythm, no obvious acute ischemia. Cardiac enzyme testing x 1 is not consistent with acute cardiac injury. Urinalysis is consistent with infection. Urine culture is pending. Abdominal and pelvis CT shows a right ureteral stent which is in proper position however, there is significant right sided hydronephrosis. Brain CT shows no acute bleed or mass effect. Chest x-ray does not show pneumonia or CHF. On exam, the patient was not febrile or toxic. She was at times somnolent. Looking at previous urine culture results, the patient has had growth of bacteria resistant to Cipro. She recently had been prescribed Cipro outpatient. The patient was given a dose of IV ceftriaxone. Given the hydronephrosis, given the ureteral stent, given the altered mental status and failed outpatient management, I do think a hospital stay is warranted. I spoke with the patient, I did speak with case management. The on-call hospitalist was consulted. In short, I do not think the patient is having an allergic reaction from the Cipro. I suspect, she is just not improving on the Cipro, the bacteria in the urine is likely resistant to ciprofloxacin. I did speak with urology, no need for emergent urologic intervention this evening. Prior/Outside records/notes reviewed: Today's EMS notes describing her presentation and transport to this hospital. ECG per my interpretation: Indication was confusion. The ECG shows a normal sinus rhythm with an old inferior infarct. The rate was 83. There was some nonspecific ST change. There is no ST elevation, no PVCs. The QTc was 465. Continuous Cardiac Monitoring per my interpretation: An order was placed for continuous cardiac monitoring. The monitor shows a rate of 79 with normal sinus rhythm. Imaging/x-ray results per my interpretation: Chest x-ray shows some chronic change, there is no CHF or focal infiltrate. Chronic Medical/Social conditions affecting care: Advanced age, hospice care patient. Care/Management discussed with: Case management, the on-call hospitalist. On- call urology-Dr. Anderson Level of care consideration(s): After review of the information above and other included data: --I believe the patient requires escalation of care to admission DISPOSITION: Admission Past Med/Surg History Problem List (Updated 04/09/24 @ 00:35 by Ash Ruggiero MD) Hospice care (Acute) Failure of outpatient treatment (Acute) Hydronephrosis (Acute) Acute UTI (Acute) Altered mental status (Acute) Hydroureteronephrosis Choledocholithiasis Urinary tract obstruction by kidney stone Nephrolithiasis Abnormal CBC UTI (urinary tract infection) (Acute) Chronic pain No pertinent past surgical history COVID-19 (Acute) weaned off oxygen GERD (gastroesophageal reflux disease) Hyperlipidemia Insomnia Rheumatoid arthritis Type 2 diabetes mellitus with diabetic polyneuropathy Major depressive disorder Vascular dementia Constipation Acute osteomyelitis of toe (Acute) Medical History History of deep venous thrombosis (DVT) of distal vein of right lower extremity Anticoagulated History of CVA (cerebrovascular accident) Hypertension Diabetes Surgical History No pertinent past surgical history Social History Smoking Status: Former smoker Tobacco Type: Cigarettes Second Hand Exposure: No; Do You Dip or Chew Tobacco: No; Hx Alcohol Use: No Hx Substance Use: No Preferred Language: Romanian Communication Ability: Effective Front Clerk Required: No Beliefs That Will Affect Care: None Current Living Situation: Skilled Nursing Current Living Situation Comment: [facility] Feels Safe at Home: Yes Assistive Devices: Wheelchair Allergies Allergies Allergy/AdvReac Type Severity Reaction Status Date / Time ibuprofen Allergy Unknown Unknown Unverified 09/04/23 17:30 Iodinated Contrast Media Allergy Unknown Unknown Unverified 09/04/23 17:30 iodine Allergy Unknown Unknown Unverified 09/04/23 17:30 metformin Allergy Unknown Unknown Unverified 09/04/23 17:30 naproxen Allergy Unknown Unknown Unverified 09/04/23 17:30 Penicillins Allergy Unknown Unknown Unverified 09/04/23 17:30 pregabalin Allergy Unknown Unknown Unverified 09/04/23 17:30 Home Meds Previous Rx's Medication Instructions Recorded acetaminophen 325 mg tablet 650 mg (2 x 325 mg) PO Q6 PRN mild 09/15/23 pain scale 1-10 #1 tab albuterol sulfate 90 mcg/actuation 2 inh inhalation Q4H PRN shortness 09/15/23 breath activated powder inhaler of breath or wheezing #1 ea apixaban 5 mg tablet (Eliquis) 5 mg PO BID #60 tabs 09/15/23 atorvastatin 10 mg tablet 10 mg PO DAILY #30 tabs 09/15/23 cephalexin 500 mg capsule 500 mg PO QID UTI #10 caps 09/15/23 citalopram 10 mg tablet 10 mg PO DAILY #30 tabs 09/15/23 cyanocobalamin (vitamin B-12) 500 1,000 mcg (2 x 500 mcg) PO QAM B12 09/15/23 mcg tablet deficiency #0 tabs diclofenac sodium 1 % topical gel 1 ea topical TID #100 grams 09/15/23 ferrous sulfate 325 mg (65 mg 325 mg PO DAILY #30 tabs 09/15/23 iron) tablet (FeroSul) fluticasone 113 mcg-salmeterol 14 1 inh inhalation BID #1 ea 09/15/23 mcg/actuation breath activated powdr lorazepam 1 mg tablet 0.5 mg (1/2 x 1 mg) PO DAILY #14 09/15/23 tabs magnesium chloride 64 mg 128 mg (2 x 64 mg magnesium) PO 09/15/23 (magnesium chloride) tablet DAILY #1 tab melatonin 5 mg tablet 5 mg PO HS #1 tab 09/15/23 pantoprazole 40 mg tablet,delayed 40 mg PO DAILY #30 tabs 09/15/23 release polyethylene glycol 3350 17 gram 17 g PO BID #100 ea 09/15/23 oral powder packet (Miralax) pregabalin 50 mg capsule 50 mg PO Q8 #90 caps 09/15/23 sennosides 8.6 mg tablet (Senokot) 17.2 mg (2 x 8.6 mg) PO QAM #0 tabs 09/15/23 tramadol 50 mg tablet 50 mg PO BID #60 tabs 09/15/23 umeclidinium 62.5 mcg/actuation 1 inh inhalation DAILY #30 ea 09/15/23 blister powder for inhalation Results & Data (ED) Vital Signs Vital Signs - 24 hr 04/08/24 21:56 04/08/24 22:12 04/08/24 23:20 Temperature 37.1 C Temperature Source Oral Pulse Rate 79 70 80 Respiratory Rate 16 22 Blood Pressure 129/72 163/83 H Blood Pressure Mean 91 109 Pulse Oximetry 94 95 Oxygen Delivery Method Room Air Sepsis Recent Fever Within 48 Hours No Sepsis New/Unexplained Change in Mental Status N/A Sepsis Action Taken by Nursing No Action Required 04/09/24 00:16 Temperature Temperature Source Pulse Rate 78 Respiratory Rate 16 Blood Pressure 139/61 Blood Pressure Mean 87 Pulse Oximetry 96 Oxygen Delivery Method Sepsis Recent Fever Within 48 Hours Sepsis New/Unexplained Change in Mental Status Sepsis Action Taken by Skilled Nursing Medications Current Medication List: was personally reviewed by me Laboratory Data Attestation: I reviewed the patient's lab results. 04/08/24 22:15 04/08/24 22:15 Lab Results 04/08/24 04/08/24 Range/Units 22:15 22:32 WBC 10.16 (4.8-10.8) K/ul RBC 4.16 L (4.20-5.40) M/uL Hgb 10.7 L (12.0-16.0) g/dl Hct 34.4 L (37.0-47.0) % MCV 82.7 (80.0-100.0) fL MCH 25.7 (25.0-34.0) pg MCHC 31.1 L (32.0-36.0) g/dL RDW Std Deviation 50.5 H (36.4-46.3) fL RDW Coeff of Atilio 16.9 H (11.5-14.5) % Plt Count 223 (130-400) K/uL MPV 9.8 (9.4-12.4) fL Immature Gran % (Auto) 0.3 % Neut % (Auto) 57.6 % Lymph % (Auto) 31.1 % [place] % (Auto) 9.4 % Eos % (Auto) 1.1 % Baso % (Auto) 0.5 % Neut # (Auto) 5.86 (1.40-6.50) K/uL Lymph # (Auto) 3.16 (1.20-3.40) K/uL [place] # (Auto) 0.95 H (0.11-0.59) K/uL Eos # (Auto) 0.11 (0.00-0.50) K/uL Baso # (Auto) 0.05 (0.00-0.20) K/uL Immature Gran # (Auto) 0.03 (0.01-0.20) K/uL Sodium 142 (136-145) mmol/L Potassium 4.4 (3.5-5.1) mmol/L Chloride 105 (98-107) mmol/L Carbon Dioxide 32 (21-32) mmol/L Anion Gap 5 (3-11) BUN 22 (6-23) mg/dl Creatinine 0.91 (0.6-1.2) mg/dl Est Cr Clr Drug Dosing 50.2 ml/min eGFR 63.38 BUN/Creatinine Ratio 24.2 H (10-20) Glucose 133 H (70-99(Fasting)) mg/dl Calcium 9.5 (8.6-10.3) mg/dl Magnesium 1.9 (1.7-2.4) mg/dl Total Bilirubin 0.5 (0.2-1.0) mg/dl AST 15 (13-39) U/L ALT 9 (7-52) U/L Alkaline Phosphatase 125 H (34-104) U/L Ammonia 16.0 L (18-72) umol/L Troponin I High Sens 8.3 (0-14) pg/ml Total Protein 6.9 (6.0-8.3) gm/dl Albumin 3.5 (3.4-5.0) gm/dl Globulin 3.4 (2.5-4.0) gm/dl Albumin/Globulin Ratio 1.0 (0.9-2) TSH 0.905 (0.300-4.500) uIu/ml Urine Color Yellow Urine Appearance Cloudy A (Clear) Urine pH 8.5 H (4.5-7.5) Ur Specific L[place] 1.016 (1.000-1.030) Urine Protein 1+ H (Negative) Urine Glucose (UA) Negative (Negative) Urine Ketones Negative (Negative) Urine Blood 1+ H (Negative) Urine Nitrite Negative (Negative) Urine Bilirubin Negative (Negative) Urine Urobilinogen Negative (Negative) Ur Leukocyte Esterase 3+ H (Negative) Urine WBC (Auto) >50 H (0-5) /hpf Urine RBC (Auto) 11-20 H (0-2) /hpf U Hyaline Cast (Auto) 11-20 H (0-2) /lpf U Epithel Cells (Auto) 3-5 H (0-2) /hpf Urine Bacteria (Auto) 4+ H (None Seen) Triple Phos Crystals Present A (None Prsent) Administered Medications Discontinued Medications Ceftriaxone Sodium (Rocephin) 2,000 mg in 50 mls @ 100 mls/hr IV NOW STA Stop: 04/08/24 23:54 Last Admin: 04/08/24 23:58 Dose: 100 mls/hr Documented By: [facility] Imaging Data Radiologist's Impression: Chest X-Ray 04/08/24 21:57 Exam(s): XR CXR 1 VIEW EXAM: XR Chest, 1 View CLINICAL HISTORY: Reason for exam: weakness. TECHNIQUE: Frontal view of the chest. COMPARISON: September 19, 2023 FINDINGS: Lungs: Unremarkable. No acute infiltration, atelectasis or mass. Pleural space: Unremarkable. No pneumothorax or pleural fluid. Heart: Unremarkable. No cardiomegaly. Mediastinum: Unremarkable. Normal mediastinal contour. Bones/joints: No acute findings. IMPRESSION: No acute findings in the chest. Electronically signed by: Onur Garland MD 04/08/24 23:[address] 04/08/24 21:57 Exam(s): CT HEAD Without Contrast EXAM: CT Head Without Intravenous Contrast CLINICAL HISTORY: Reason for exam: altered. TECHNIQUE: Axial computed tomography images of the head/brain without intravenous contrast. CTDI is 22.99 mGy and DLP is 1872.05 mGy-cm. Automated exposure control was utilized for the study. A dose lowering technique was utilized adhering to the principles of ALARA. COMPARISON: September 19, 2023 FINDINGS: Brain: Stable, old right GIOVANNI distribution infarct. No acute cortical edema, hemorrhage or abnormal mass-effect. Ventricles: Unremarkable. No ventriculomegaly. Bones/joints: Unremarkable. No acute fracture. Soft tissues: Unremarkable. Sinuses: Unremarkable as visualized. No acute sinusitis. Mastoid air cells: Unremarkable as visualized. No mastoid effusion. IMPRESSION: No acute intracranial abnormality. Electronically signed by: Onur Garland MD 04/09/24 00:04 AM Abdomen/Pelvis CT 04/08/24 22:02 Exam(s): CT ABDOMEN + PELVIS Without Contrast EXAM: CT Abdomen and Pelvis Without Intravenous Contrast CLINICAL HISTORY: Hydronephrosis. TECHNIQUE: Axial computed tomography images of the abdomen and pelvis without intravenous contrast. CTDI is 23 mGy and DLP is 1237, clearance: Sleep mGy-cm. Automated exposure control was utilized for the study. A dose lowering technique was utilized adhering to the principles of ALARA. COMPARISON: CT September 28, 2023. FINDINGS: ABDOMEN: Liver: Unremarkable. Gallbladder and bile ducts: Cholecystectomy. Extensive intrahepatic pneumobilia. No ductal dilation. Pancreas: Unremarkable. No ductal dilation. Spleen: Unremarkable. No splenomegaly. Adrenals: Unremarkable. No mass. Kidneys and ureters: Right ureteral stent in place. Severe right hydroureteronephrosis. Stomach and bowel: Unremarkable. No obstruction. No mucosal thickening. PELVIS: Appendix: No findings to suggest acute appendicitis. Bladder: Ramirez catheter in the bladder. No stones. ABDOMEN and PELVIS: Intraperitoneal space: Unremarkable. No free air. No significant fluid collection. Bones/joints: No acute findings. Soft tissues: Unremarkable. Vasculature: Unremarkable. No abdominal aortic aneurysm. Lymph nodes: Unremarkable. No enlarged lymph nodes. IMPRESSION: Right ureteral stent in place. Severe right hydroureteronephrosis. Electronically signed by: Onur Garland MD 04/08/24 23:55 PM Discharge Plan Visit Data Chief Complaint: Allergic Reaction Stated Complaint: ALLERGIC REACTION ED Provider: Ash Ruggiero Discharge Problem: Altered mental status, Acute UTI, Hydronephrosis, Failure of outpatient treatment, Hospice care Patient Disposition: Admitted As Inpatient Condition: Fair Forms Stand Alone Forms: [facility] Prescriptions Prescriptions: No Action cephalexin 500 mg Capsule 500 mg PO QID Qty: 10 0RF umeclidinium 62.5 mcg/actuation Blister With Device 1 inh inhalation DAILY Qty: 30 0RF albuterol sulfate 90 mcg/actuation aerosol powdr breath activated 2 inh inhalation Q4H PRN (Reason: shortness of breath or wheezing) Qty: 1 0RF pantoprazole 40 mg Tablet,Delayed Release (Dr/Ec) 40 mg PO DAILY Qty: 30 0RF sennosides [Senokot] 8.6 mg Tablet 17.2 mg PO QAM Qty: 0 0RF Rx Instructions: buy over the counter fluticasone propion-salmeterol 113-14 mcg/actuation aerosol powdr breath activated 1 inh inhalation BID Qty: 1 0RF cyanocobalamin (vitamin B-12) 500 mcg Tablet 1,000 mcg PO QAM Qty: 0 0RF Rx Instructions: buy over the counter acetaminophen 325 mg Tablet 650 mg PO Q6 MDD 3g PRN (Reason: mild pain scale 1-10) Qty: 1 0RF Rx Instructions: over the counter polyethylene glycol 3350 [Miralax] 17 gram Powder In Packet 17 g PO BID Qty: 100 0RF Rx Instructions: buy over the counter atorvastatin 10 mg tablet 10 mg PO DAILY Qty: 30 0RF citalopram 10 mg tablet 10 mg PO DAILY Qty: 30 0RF tramadol 50 mg tablet 50 mg PO BID Qty: 60 0RF ferrous sulfate [FeroSul] 325 mg (65 mg iron) tablet 325 mg PO DAILY Qty: 30 0RF lorazepam 1 mg tablet 0.5 mg PO DAILY Qty: 14 0RF pregabalin 50 mg capsule 50 mg PO Q8 Qty: 90 0RF diclofenac sodium 1 % gel 1 ea TOPICAL TID Qty: 100 0RF Rx Instructions: apply to feet for pain, buy over the counter melatonin 5 mg Tablet 5 mg PO HS Qty: 1 0RF Rx Instructions: buy over the counter Eliquis 5 mg tablet 5 mg PO BID Qty: 60 0RF magnesium chloride 64 mg magnesium Tablet 128 mg PO DAILY Qty: 1 0RF Rx Instructions: buy over the counter Referrals Referrals: PCP,NO [Primary Care Provider] - Discharge Problem: Altered mental status Qualifiers: Altered mental status type: somnolence Qualified Code(s): R40.0 - Somnolence Hydronephrosis Qualifiers: Hydronephrosis type: with ureteropelvic junction obstruction Qualified Code(s): Q62.11 - Congenital occlusion of ureteropelvic junction
[2024-04-08 22:42] LABS: Basophils # (auto) 0.05 K/uL (0.00-0.20); Basophils % (auto) 0.5 %; Eosinophils # (auto) 0.11 K/uL (0.00-0.50); Eosinophils % (auto) 1.1 %; Hematocrit (blood only) 34.4 % (37.0-47.0); Hemoglobin 10.7 g/dl (12.0-16.0); Immature Granulocytes # (auto) 0.03 K/uL (0.01-0.20); Immature Granulocytes % (auto) 0.3 %; Lymphocytes # (auto) 3.16 K/uL (1.20-3.40); Lymphocytes % (auto) 31.1 %; Mean Corpuscular Hemoglobin 25.7 pg (25.0-34.0); Mean Corpuscular Hgb Conc 31.1 g/dL (32.0-36.0); Mean Corpuscular Volume 82.7 fL (80.0-100.0); Mean Platelet Volume 9.8 fL (9.4-12.4); Monocytes # (auto) 0.95 K/uL (0.11-0.59); Monocytes % (auto) 9.4 %; Neutrophils # (auto) 5.86 K/uL (1.40-6.50); Neutrophils % (auto) 57.6 %; Platelet Count 223 K/uL (130-400); RDW Coefficient of Variation 16.9 % (11.5-14.5); RDW Standard Deviation 50.5 fL (36.4-46.3); Red Blood Count 4.16 M/uL (4.20-5.40); White Blood Count 10.16 K/ul (4.8-10.8)
[2024-04-08 22:55] LABS: Albumin Level 3.5 gm/dl (3.4-5.0); BUN Creatinine Ratio 24.2 (10-20); Bilirubin,Total 0.5 mg/dl (0.2-1.0); Calcium 9.5 mg/dl (8.6-10.3); Creatinine Clr Calc Pharmacy 50.2 ml/min; Globulin 3.4 gm/dl (2.5-4.0); Magnesium 1.9 mg/dl (1.7-2.4); Potassium 4.4 mmol/L (3.5-5.1); Total Protein 6.9 gm/dl (6.0-8.3)
[2024-04-08 23:01] LABS: Troponin I High Sensitivity 8.3 pg/ml (0-14)
[2024-04-08 23:11] LABS: Appearance Urine Cloudy (Clear); Bacteria Urine Automated 4+ (None Seen); Bilirubin Urine Negative (Negative); Blood Urine 1+ (Negative); Color Urine Yellow; Glucose Urine UA Negative (Negative); Ketones Urine Negative (Negative); Leukocyte Esterase Urine 3+ (Negative); Nitrite Urine Negative (Negative); Protein Urine 1+ (Negative); Specific Gravity Urine 1.016 (1.000-1.030); Triple Phosphate Crystal Urine Present (None Prsent); Urobilinogen Urine Negative (Negative); WBC Urine Automated >50 /hpf (0-5); pH Urine 8.5 (4.5-7.5)
[2024-04-08 23:11] LABS: Thyroid Stimulating Hormone 0.905 uIu/ml (0.300-4.500)
--- NOTE | 2024-04-08 23:40 | XRay Report ---
Exam(s): XR CXR 1 VIEW EXAM: XR Chest, 1 View CLINICAL HISTORY: Reason for exam: weakness. TECHNIQUE: Frontal view of the chest. COMPARISON: September 19, 2023 FINDINGS: Lungs: Unremarkable. No acute infiltration, atelectasis or mass. Pleural space: Unremarkable. No pneumothorax or pleural fluid. Heart: Unremarkable. No cardiomegaly. Mediastinum: Unremarkable. Normal mediastinal contour. Bones/joints: No acute findings. IMPRESSION: No acute findings in the chest. Electronically signed by: Onur Garland MD 04/08/24 23:39 PM
--- NOTE | 2024-04-08 23:56 | CT Scan Report ---
Exam(s): CT ABDOMEN + PELVIS Without Contrast EXAM: CT Abdomen and Pelvis Without Intravenous Contrast CLINICAL HISTORY: Hydronephrosis. TECHNIQUE: Axial computed tomography images of the abdomen and pelvis without intravenous contrast. CTDI is 23 mGy and DLP is 1237, clearance: Sleep mGy-cm. Automated exposure control was utilized for the study. A dose lowering technique was utilized adhering to the principles of ALARA. COMPARISON: CT September 28, 2023. FINDINGS: ABDOMEN: Liver: Unremarkable. Gallbladder and bile ducts: Cholecystectomy. Extensive intrahepatic pneumobilia. No ductal dilation. Pancreas: Unremarkable. No ductal dilation. Spleen: Unremarkable. No splenomegaly. Adrenals: Unremarkable. No mass. Kidneys and ureters: Right ureteral stent in place. Severe right hydroureteronephrosis. Stomach and bowel: Unremarkable. No obstruction. No mucosal thickening. PELVIS: Appendix: No findings to suggest acute appendicitis. Bladder: Ramirez catheter in the bladder. No stones. ABDOMEN and PELVIS: Intraperitoneal space: Unremarkable. No free air. No significant fluid collection. Bones/joints: No acute findings. Soft tissues: Unremarkable. Vasculature: Unremarkable. No abdominal aortic aneurysm. Lymph nodes: Unremarkable. No enlarged lymph nodes. IMPRESSION: Right ureteral stent in place. Severe right hydroureteronephrosis. Electronically signed by: Onur Garland MD 04/08/24 23:55 PM
[2024-04-08] MEDS: cefTRIAXone SODIUM 2,000 MG/50 ML BAG IV STA (23:58)
--- NOTE | 2024-04-09 00:04 | CT Scan Report ---
Exam(s): CT HEAD Without Contrast EXAM: CT Head Without Intravenous Contrast CLINICAL HISTORY: Reason for exam: altered. TECHNIQUE: Axial computed tomography images of the head/brain without intravenous contrast. CTDI is 22.99 mGy and DLP is 1872.05 mGy-cm. Automated exposure control was utilized for the study. A dose lowering technique was utilized adhering to the principles of ALARA. COMPARISON: September 19, 2023 FINDINGS: Brain: Stable, old right GIOVANNI distribution infarct. No acute cortical edema, hemorrhage or abnormal mass-effect. Ventricles: Unremarkable. No ventriculomegaly. Bones/joints: Unremarkable. No acute fracture. Soft tissues: Unremarkable. Sinuses: Unremarkable as visualized. No acute sinusitis. Mastoid air cells: Unremarkable as visualized. No mastoid effusion. IMPRESSION: No acute intracranial abnormality. Electronically signed by: Onur Garland MD 04/09/24 00:04 AM
--- NOTE | 2024-04-09 02:00 | History & Physical Report ---
Date of Service April 09, 2024 Assessment & Plan (1) Hydroureteronephrosis: Plan: - noted on CT A&P, stent present - urology consulted - no DELGADO present on admission, continue to trend BMP - NPO pending urology consult (2) Acute UTI: Plan: - UA consistent with UTI s/p ceftriaxone in the ED, tolerated well - no leukocytosis and hemodynamically stable - continue ceftriaxone (3) Altered mental status: Plan: - unclear baseline- attempted to call daughter- no answer - TSH, ammonia, CMP wnl. CT head without acute pathology - likely secondary to UTI (4) Hospice care: Plan: - per report pt is on hospice - unable to obtain home medication list- will need to reach out to daughter/hospice agency for obtain and to discuss goals of care Plan Dispo: Med Surg Code: DNR/DNI Diet: NPO pending urology eval VTE prophylaxis: SCD, defer chemically pending urology eval History of Present Illness Primary Care Provider: ALETHA PCP 83 year old female with a past medical history of vascular dementia presenting with concern for swelling/dry mouth, AMS. Pt is unable to provide history. Attempted to call daughter, no answer. Much of HPI per chart review. Pt lives with daughter at home and is currently on hospice. Pt has chronic indwelling Ramirez catheter. Was seen at [facility] 4 days ago for UTI and started on cipro. Daughter had concern for allergic reaction today due to swelling and dry mucous membranes, AMS- returned to [facility] and was d/c. Symptoms recurred, so pt was brought here via EMS. Pt denies any acute pain, states she just wants to sleep. ED course Significant for: CBC without leukocytosis, Hgb=10.7- which appears to be close to baseline. CMP unremarkable. UA consistent with UTI. CT A&P with Right ureteral stent in place. Severe right hydroureteronephrosis. CT head and CXR without acute findings. Allergies Allergy/AdvReac Type Severity Reaction Status Date / Time ibuprofen Allergy Unknown Unknown Unverified 09/04/23 17:30 Iodinated Contrast Media Allergy Unknown Unknown Unverified 09/04/23 17:30 iodine Allergy Unknown Unknown Unverified 09/04/23 17:30 metformin Allergy Unknown Unknown Unverified 09/04/23 17:30 naproxen Allergy Unknown Unknown Unverified 09/04/23 17:30 Penicillins Allergy Unknown Unknown Unverified 09/04/23 17:30 pregabalin Allergy Unknown Unknown Unverified 09/04/23 17:30 Home Medications Medication Instructions Recorded Confirmed Type acetaminophen 325 mg tablet 650 mg (2 x 325 mg) PO Q6 PRN mild 09/15/23 09/04/23 Rx pain scale 1-10 #1 tab albuterol sulfate 90 mcg/actuation 2 inh inhalation Q4H PRN shortness 09/15/23 Rx breath activated powder inhaler of breath or wheezing #1 ea apixaban 5 mg tablet (Eliquis) 5 mg PO BID #60 tabs 09/15/23 Rx atorvastatin 10 mg tablet 10 mg PO DAILY #30 tabs 09/15/23 Rx cephalexin 500 mg capsule 500 mg PO QID UTI #10 caps 09/15/23 Rx citalopram 10 mg tablet 10 mg PO DAILY #30 tabs 09/15/23 Rx cyanocobalamin (vitamin B-12) 500 1,000 mcg (2 x 500 mcg) PO QAM B12 09/15/23 Rx mcg tablet deficiency #0 tabs diclofenac sodium 1 % topical gel 1 ea topical TID #100 grams 09/15/23 09/04/23 Rx ferrous sulfate 325 mg (65 mg 325 mg PO DAILY #30 tabs 09/15/23 Rx iron) tablet (FeroSul) fluticasone 113 mcg-salmeterol 14 1 inh inhalation BID #1 ea 09/15/23 Rx mcg/actuation breath activated powdr lorazepam 1 mg tablet 0.5 mg (1/2 x 1 mg) PO DAILY #14 09/15/23 Rx tabs magnesium chloride 64 mg 128 mg (2 x 64 mg magnesium) PO 09/15/23 09/04/23 Rx (magnesium chloride) tablet DAILY #1 tab melatonin 5 mg tablet 5 mg PO HS #1 tab 09/15/23 09/04/23 Rx pantoprazole 40 mg tablet,delayed 40 mg PO DAILY #30 tabs 09/15/23 Rx release polyethylene glycol 3350 17 gram 17 g PO BID #100 ea 09/15/23 09/04/23 Rx oral powder packet (Miralax) pregabalin 50 mg capsule 50 mg PO Q8 #90 caps 09/15/23 09/04/23 Rx sennosides 8.6 mg tablet (Senokot) 17.2 mg (2 x 8.6 mg) PO QAM #0 tabs 09/15/23 Rx tramadol 50 mg tablet 50 mg PO BID #60 tabs 09/15/23 Rx umeclidinium 62.5 mcg/actuation 1 inh inhalation DAILY #30 ea 09/15/23 Rx blister powder for inhalation Past Med/Surg History Problem List Hospice care (Acute) Failure of outpatient treatment (Acute) Hydronephrosis (Acute) Acute UTI (Acute) Altered mental status (Acute) Hydroureteronephrosis Choledocholithiasis Urinary tract obstruction by kidney stone Nephrolithiasis Abnormal CBC UTI (urinary tract infection) (Acute) Chronic pain No pertinent past surgical history COVID-19 (Acute) weaned off oxygen GERD (gastroesophageal reflux disease) Hyperlipidemia Insomnia Rheumatoid arthritis Type 2 diabetes mellitus with diabetic polyneuropathy Major depressive disorder Vascular dementia Constipation Acute osteomyelitis of toe (Acute) Medical History History of deep venous thrombosis (DVT) of distal vein of right lower extremity Anticoagulated History of CVA (cerebrovascular accident) Hypertension Diabetes Social History Smoking Status: Former smoker Tobacco Type: Cigarettes Second Hand Exposure: No; Do You Dip or Chew Tobacco: No; Tobacco Cessation Education Requested by Patient: No Hx Alcohol Use: No Hx Substance Use: No Preferred Language: Estonian Communication Ability: Effective Trucker Hand Required: No Beliefs That Will Affect Care: None Current Living Situation: Family Current Living Situation Comment: [facility] Other Information That Helps Us Care for You: No Feels Safe at Home: Yes Assistive Devices: Hospital Bed and Mechanical Lift Assistive Devices Comment: glasses and dentures at home Review of Systems Review of Systems: As per above Physical Exam Physical Exam: Constitutional: well-appearing, no acute distress HEENT: NCAT, no conjunctival injection CV: regular rhythm, no murmur appreciated, extremities well-perfused, no LE edema Resp: CTABL, no wheezes/rales/rhonchi appreciated, no increased work of breathing GI: soft, nondistended, nontender MSK: no gross deformities appreciated Skin: warm, dry, no rash appreciated Neuro: alert, no focal neurologic deficit appreciated Results & Data Results & Data Vital Signs (Past 12 Hours) Vital Signs Temp Pulse Resp BP Pulse Ox O2 Del Method 04/09/24 01:39 120 H 18 130/72 93 04/09/24 00:16 78 16 139/61 96 04/08/24 23:20 80 22 163/83 H 95 04/08/24 22:12 70 04/08/24 21:56 37.1 C 79 16 129/72 94 Room Air Supervising Physician Co-Signing Physician Notes Attending addendum: I have physically seen this patient, have supervised the medical residents activities, and agree with the H&P unless as otherwise noted. Assessment and Plan: Right ureteral stent/severe right hydroureteronephrosis/UTI- Follow urine culture and sensitivity CT abdomen and pelvis NPO Continue ceftriaxone 2 g IV daily begun in the ED Acetaminophen 1 g IV every 8 hours as needed for fever Consult urology Altered mental status- Patient not able to contribute significant PI or ROS Metabolic workup negative other than urinary issues, which are the likely cause Hospice- Patient reportedly is on hospice Confirm with daughter and hospice agency Resident Activity Tracking Resident Involvement: Resident Care Provided Care Provided: Adult Hospital Medicine (3) Altered mental status Altered mental status type: somnolence Qualified Code(s): R40.0 - Somnolence
--- NOTE | 2024-04-09 07:22 | Electrocardiogram Report ---
Test Reason : Blood Pressure : */* mmHG Vent. Rate : 83 BPM Atrial Rate : 83 BPM P-R Int : 146 ms QRS Dur : 68 ms QT Int : 396 ms P-R-T Axes : 23 5 61 degrees QTcB Int : 465 ms Normal sinus rhythm possible Inferior infarct (cited on or before 12-Sep-2023) Nonspecific ST abnormality Abnormal ECG When compared with ECG of 19-Sep-2023 13:27, Nonspecific T wave abnormality no longer evident in Inferior leads Nonspecific T wave abnormality no longer evident in Anterior leads QT has lengthened Confirmed by Ramses Rosas ([id number]) on 04/09/2024 7:22:17 AM Referred By: ALETHA PCP Confirmed By: Ramses Rosas
--- NOTE | 2024-04-09 09:05 | Urology Consultation ---
Date of Consultation April 09, 2024 Assessment & Plan (1) Hydroureteronephrosis: (2) Acute UTI: Plan This is an 83-year-old female with right hydronephrosis, concern for acute UTI. Her right ureteral stent has been in position since August 2023 and may not be draining appropriately at this time. I think it would be reasonable to perform stent exchange to ensure maximum drainage of her right kidney, however have not been able to contact her daughter/POA to obtain consent. At this point, I do not think the patient herself is consentable due to mental status. Fortunately, she is hemodynamically stable and I would not consider this to be an emergent case at the moment. I will continue to try to contact her daughter to obtain consent/discuss surgery. For now, would recommend we maintain her n.p.o. status, continue antibiotics with ceftriaxone, narrowing coverage as culture data becomes available. History of Present Illness Reason for Consultation: Right hydronephrosis Attending Physician: Lisa King MD History of Present Illness This is an 83-year-old female followed by urology for nephrolithiasis. She was previously seen in August, and had a right ureteral stent placed due to a possibly obstructing stone and concern for infection. Since that time, she was hospitalized with other issues at other facilities. Per report, she eventually ended up in hospice care. She was brought to the [facility] emergency department on 04/08/2024 with altered mental status. She had previously been seen in other facilities where she was started on ciprofloxacin, then switched to Benadryl due to confusion. Workup in the ED was notable for normal WBC (10.16). She was somewhat anemic at hemoglobin 10.7. Creatinine was 0.91 and electrolytes were within normal limits. Urinalysis demonstrated 3+ leukocyte esterase, negative nitrites, 4+ bacteria, although she has a chronic Ramirez catheter in place. A CT scan of the abdomen and pelvis was performed. I independently reviewed these images from 04/08/2024. Both kidneys are in normal position. There is hydronephrosis on the right side. Her right ureteral stent appears to be in good position. I do not appreciate any obvious stones along the course of the ureter. Bladder is decompressed around a Ramirez catheter. There is a small focus of gas within the bladder. Urology was consulted given the hydronephrosis and indwelling stent. At the bedside this morning, she reports some right lower quadrant pressure, but feels like that is new this morning. She is disoriented to place and time. Allergies Allergy/AdvReac Type Severity Reaction Status Date / Time ibuprofen Allergy Unknown Unknown Unverified 09/04/23 17:30 Iodinated Contrast Media Allergy Unknown Unknown Unverified 09/04/23 17:30 iodine Allergy Unknown Unknown Unverified 09/04/23 17:30 metformin Allergy Unknown Unknown Unverified 09/04/23 17:30 naproxen Allergy Unknown Unknown Unverified 09/04/23 17:30 Penicillins Allergy Unknown Unknown Unverified 09/04/23 17:30 pregabalin Allergy Unknown Unknown Unverified 09/04/23 17:30 Home Medications Medication Instructions Recorded Confirmed Type acetaminophen 325 mg tablet 650 mg (2 x 325 mg) PO Q6 PRN mild 09/15/23 09/04/23 Rx pain scale 1-10 #1 tab albuterol sulfate 90 mcg/actuation 2 inh inhalation Q4H PRN shortness 09/15/23 Rx breath activated powder inhaler of breath or wheezing #1 ea apixaban 5 mg tablet (Eliquis) 5 mg PO BID #60 tabs 09/15/23 Rx atorvastatin 10 mg tablet 10 mg PO DAILY #30 tabs 09/15/23 Rx cephalexin 500 mg capsule 500 mg PO QID UTI #10 caps 09/15/23 Rx citalopram 10 mg tablet 10 mg PO DAILY #30 tabs 09/15/23 Rx cyanocobalamin (vitamin B-12) 500 1,000 mcg (2 x 500 mcg) PO QAM B12 09/15/23 Rx mcg tablet deficiency #0 tabs diclofenac sodium 1 % topical gel 1 ea topical TID #100 grams 09/15/23 09/04/23 Rx ferrous sulfate 325 mg (65 mg 325 mg PO DAILY #30 tabs 09/15/23 Rx iron) tablet (FeroSul) fluticasone 113 mcg-salmeterol 14 1 inh inhalation BID #1 ea 09/15/23 Rx mcg/actuation breath activated powdr lorazepam 1 mg tablet 0.5 mg (1/2 x 1 mg) PO DAILY #14 09/15/23 Rx tabs magnesium chloride 64 mg 128 mg (2 x 64 mg magnesium) PO 09/15/23 09/04/23 Rx (magnesium chloride) tablet DAILY #1 tab melatonin 5 mg tablet 5 mg PO HS #1 tab 09/15/23 09/04/23 Rx pantoprazole 40 mg tablet,delayed 40 mg PO DAILY #30 tabs 09/15/23 Rx release polyethylene glycol 3350 17 gram 17 g PO BID #100 ea 09/15/23 09/04/23 Rx oral powder packet (Miralax) pregabalin 50 mg capsule 50 mg PO Q8 #90 caps 09/15/23 09/04/23 Rx sennosides 8.6 mg tablet (Senokot) 17.2 mg (2 x 8.6 mg) PO QAM #0 tabs 09/15/23 Rx tramadol 50 mg tablet 50 mg PO BID #60 tabs 09/15/23 Rx umeclidinium 62.5 mcg/actuation 1 inh inhalation DAILY #30 ea 09/15/23 Rx blister powder for inhalation Patient History Medical History History of deep venous thrombosis (DVT) of distal vein of right lower extremity Anticoagulated History of CVA (cerebrovascular accident) Hypertension Diabetes Surgical History No pertinent past surgical history Social History Smoking Status: Former smoker Tobacco Type: Cigarettes Second Hand Exposure: No; Do You Dip or Chew Tobacco: No; Tobacco Cessation Education Requested by Patient: No Hx Alcohol Use: No Hx Substance Use: No Preferred Language: Setswana Communication Ability: Effective Belt Brander Required: No Beliefs That Will Affect Care: None Current Living Situation: Family Current Living Situation Comment: [facility] Other Information That Helps Us Care for You: No Feels Safe at Home: Yes Assistive Devices: Mechanical Lift Assistive Devices Comment: glasses and dentures at home Review of Systems Review of Systems: Review of systems is limited due to mental status Physical Exam Physical Exam: Resting in bed, NAD Constitutional: well developed and well nourished; no acute distress Eyes: + anicteric sclerae; pupils not irregula r Respiratory: normal respiratory effort; no respiratory distress, does not use accessory muscles and no cough Cardiovascular: well perfused Gastrointestinal (Abdomen): Inspection/Auscultation: abdomen normal to inspection; abdomen not distended Musculoskeletal: Extremities: extremities normal to inspection Skin: normal turgor; no rashes and no lesions Neurologic: moves all extremities and awake Psychiatric: Interacts appropriately, disoriented to place and time Results & Data Vital Signs (Past 12 Hours) Vital Signs Temp Pulse Pulse Resp BP BP Pulse Ox 04/09/24 07:06 36.9 C 85 16 134/78 96 04/09/24 02:11 36.8 C 18 138/64 95 04/09/24 01:50 36.8 C 18 138/64 95 04/09/24 01:39 120 H 18 130/72 93 04/09/24 00:16 78 16 139/61 96 04/08/24 23:20 80 22 163/83 H 95 04/08/24 22:12 70 04/08/24 21:56 37.1 C 79 16 129/72 94 O2 Del Method 04/09/24 07:06 Room Air 04/09/24 02:11 Room Air 04/09/24 01:50 Room Air 04/09/24 01:39 04/09/24 00:16 04/08/24 23:20 04/08/24 22:12 04/08/24 21:56 Room Air PG Care Time/CCT Total # of Minutes Spent Total Time Spent with Patient: Total time spent is greater than 50% in coordination of care (as documented) at patient's floor/unit and/or counseling patient: Coding Level of Care Code 37097 INT INP/OBS CARE 2/55MIN Diagnoses Hydroureteronephrosis N13.30 Acute UTI N39.0
[2024-04-09 09:13] LABS: Basophils # (auto) 0.06 K/uL (0.00-0.20); Basophils % (auto) 0.5 %; Eosinophils # (auto) 0.08 K/uL (0.00-0.50); Eosinophils % (auto) 0.7 %; Hematocrit (blood only) 32.5 % (37.0-47.0); Hemoglobin 10.2 g/dl (12.0-16.0); Immature Granulocytes # (auto) 0.04 K/uL (0.01-0.20); Immature Granulocytes % (auto) 0.4 %; Lymphocytes # (auto) 3.03 K/uL (1.20-3.40); Lymphocytes % (auto) 26.8 %; Mean Corpuscular Hemoglobin 25.4 pg (25.0-34.0); Mean Corpuscular Hgb Conc 31.4 g/dL (32.0-36.0); Mean Corpuscular Volume 80.8 fL (80.0-100.0); Mean Platelet Volume 9.7 fL (9.4-12.4); Monocytes # (auto) 0.77 K/uL (0.11-0.59); Monocytes % (auto) 6.8 %; Neutrophils # (auto) 7.33 K/uL (1.40-6.50); Neutrophils % (auto) 64.8 %; Platelet Count 219 K/uL (130-400); RDW Coefficient of Variation 16.8 % (11.5-14.5); Red Blood Count 4.02 M/uL (4.20-5.40); White Blood Count 11.31 K/ul (4.8-10.8)
[2024-04-09 09:15] LABS: BUN Creatinine Ratio 26.3 (10-20); Calcium 9.4 mg/dl (8.6-10.3); Creatinine Clr Calc Pharmacy 56.4 ml/min; Potassium 4.2 mmol/L (3.5-5.1)
[2024-04-09] MEDS ORDERED: ONDANSETRON INJ 2 MG/ML 2 ML VIAL ONE (10:39)
[2024-04-09] MEDS ORDERED: fentaNYL citrate PF 100 MCG/2 ML VIAL ONE (10:39)
[2024-04-09] MEDS ORDERED: LIDOCAINE 2% 2 ML VIAL/AMP(20MG/ML) INFIL ONE (10:39)
[2024-04-09] MEDS ORDERED: PROPOFOL IV EMULSION 10 MG/ML 20 ML VIAL IV ONE (10:39)
--- NOTE | 2024-04-09 10:45 | Anesthesiology Consultation ---
Date of Service April 09, 2024 Assessment & Plan Chart Review Chart Review: Acceptable Risk for Surgery and Patient NOT seen in Pre Admission Testing Consults Requested none ASA ASA4 Proposed Anesthesia Anesthesia Type: MAC History Surgery Operation Date: 04/09/24 11:00 Proposed Procedures p Ureteral Stent Insertion/Removal - Jesus Anderson MD Height/Weight Height: 5 ft 6 in Weight: 73 kg Allergies Allergy/AdvReac Type Severity Reaction Status Date / Time ibuprofen Allergy Unknown Unknown Unverified 09/04/23 17:30 Iodinated Contrast Media Allergy Unknown Unknown Unverified 09/04/23 17:30 iodine Allergy Unknown Unknown Unverified 09/04/23 17:30 metformin Allergy Unknown Unknown Unverified 09/04/23 17:30 naproxen Allergy Unknown Unknown Unverified 09/04/23 17:30 Penicillins Allergy Unknown Unknown Unverified 09/04/23 17:30 pregabalin Allergy Unknown Unknown Unverified 09/04/23 17:30 Medications Home Medications Medication Instructions Recorded Confirmed Last Taken acetaminophen 325 mg tablet 650 mg (2 x 325 mg) PO Q6 PRN mild 09/15/23 09/04/23 Unknown pain scale 1-10 #1 tab albuterol sulfate 90 mcg/actuation 2 inh inhalation Q4H PRN shortness 09/15/23 Unknown breath activated powder inhaler of breath or wheezing #1 ea apixaban 5 mg tablet (Eliquis) 5 mg PO BID #60 tabs 09/15/23 Unknown atorvastatin 10 mg tablet 10 mg PO DAILY #30 tabs 09/15/23 Unknown cephalexin 500 mg capsule 500 mg PO QID UTI #10 caps 09/15/23 Unknown citalopram 10 mg tablet 10 mg PO DAILY #30 tabs 09/15/23 Unknown cyanocobalamin (vitamin B-12) 500 1,000 mcg (2 x 500 mcg) PO QAM B12 09/15/23 Unknown mcg tablet deficiency #0 tabs diclofenac sodium 1 % topical gel 1 ea topical TID #100 grams 09/15/23 09/04/23 Unknown ferrous sulfate 325 mg (65 mg 325 mg PO DAILY #30 tabs 09/15/23 Unknown iron) tablet (FeroSul) fluticasone 113 mcg-salmeterol 14 1 inh inhalation BID #1 ea 09/15/23 Unknown mcg/actuation breath activated powdr lorazepam 1 mg tablet 0.5 mg (1/2 x 1 mg) PO DAILY #14 09/15/23 Unknown tabs magnesium chloride 64 mg 128 mg (2 x 64 mg magnesium) PO 09/15/23 09/04/23 Unknown (magnesium chloride) tablet DAILY #1 tab melatonin 5 mg tablet 5 mg PO HS #1 tab 09/15/23 09/04/23 Unknown pantoprazole 40 mg tablet,delayed 40 mg PO DAILY #30 tabs 09/15/23 Unknown release polyethylene glycol 3350 17 gram 17 g PO BID #100 ea 09/15/23 09/04/23 Unknown oral powder packet (Miralax) pregabalin 50 mg capsule 50 mg PO Q8 #90 caps 09/15/23 09/04/23 Unknown sennosides 8.6 mg tablet (Senokot) 17.2 mg (2 x 8.6 mg) PO QAM #0 tabs 09/15/23 Unknown tramadol 50 mg tablet 50 mg PO BID #60 tabs 09/15/23 Unknown umeclidinium 62.5 mcg/actuation 1 inh inhalation DAILY #30 ea 09/15/23 Unknown blister powder for inhalation Past Medical History Medical History History of deep venous thrombosis (DVT) of distal vein of right lower extremity Anticoagulated History of CVA (cerebrovascular accident) Hypertension Diabetes HLD ASCVD Anemia Dementia GERD Diabetic PN Exercise / Class Metabolic Activity III < 4 Walking/Shop/Light housework Past Anesthesia History No Hx of Anesthesia Complications and No Family Hx of Anesthesia Complications History of PONV No Hx of PONV and No Hx of Motion Sickness Social History Smoking Status: Former smoker Do You Dip or Chew Tobacco: No Hx Alcohol Use: No Hx Substance Use: No substance use type: does not use Physical Exam Vital Signs Last Vital Signs Temp 36.9 C 04/09/24 07:06 Pulse 85 04/09/24 07:06 Resp 16 04/09/24 07:06 BP 134/78 04/09/24 07:06 Pulse Ox 96 04/09/24 07:06 O2 Del Method Room Air 04/09/24 07:21 Testing Laboratory Results 04/09/24 08:42 04/09/24 08:42 Urine Color Yellow 04/08/24 22:32 Urine Appearance Cloudy (Clear) A 11/23/24 22:32 Urine pH 8.5 (4.5-7.5) H 04/08/24 22:32 Ur Specific [place] 1.016 (1.000-1.030) 04/08/24 22:32 Urine Protein 1+ (Negative) H 04/08/24 22:32 Urine Glucose (UA) Negative (Negative) 04/08/24 22:32 Urine Ketones Negative (Negative) 04/08/24 22:32 Urine Nitrite Negative (Negative) 04/08/24 22:32 Ur Leukocyte Esterase 3+ (Negative) H 04/08/24 22:32 Urine WBC (Auto) >50 /hpf (0-5) H 04/08/24 22:32 Urine RBC (Auto) 11-20 /hpf (0-2) H 04/08/24 22:32 U Hyaline Cast (Auto) 11-20 /lpf (0-2) H 04/08/24 22:32 U Epithel Cells (Auto) 3-5 /hpf (0-2) H 04/08/24 22:32 Urine Bacteria (Auto) 4+ (None Seen) H 04/08/24 22:32 Electrocardiogram Date: 04/08/24 Findings: + NSR @ (@ 83;poss. infer. infarct,age ?;) and + NSST changes Chest X-Ray Date: 04/08/24 Findings: + NAD Echocardiogram Date: 09/14/23 EF: 65% LV Function: normal RWMA: + none Other Findings: + LVH (mild) and + diastolic dysfunction (Grade 1) Valvular Disease: + MR (mild)
[2024-04-09] MEDS ORDERED: NALOXONE HCL 0.4 MG/1 ML VIAL/CARP IV PRN (11:08)
[2024-04-09] MEDS ORDERED: PROMETHAZINE HCL 6.25 MG in SODIUM CHLORIDE 0.9% 50 ML IV PRN (11:08)
[2024-04-09] MEDS ORDERED: ONDANSETRON INJ 2 MG/ML 2 ML VIAL IV PRN (11:08)
[2024-04-09] MEDS ORDERED: LABETALOL HCL IV 5 MG/ML 20ML IV PRN (11:08)
[2024-04-09] MEDS ORDERED: FLUMAZENIL 0.1 MG/1 ML 10 ML VIAL IV PRN (11:08)
[2024-04-09] MEDS ORDERED: ATROPINE SULFATE 0.1 MG/ML 10ML SYR IV PRN (11:08)
[2024-04-09] MEDS ORDERED: ePHEDrine sulfate 50 MG/ML AMP IV PRN (11:08)
[2024-04-09] MEDS ORDERED: fentaNYL citrate PF 100 MCG/2 ML VIAL IV PRN (11:08)
--- NOTE | 2024-04-09 11:46 | Operative Report ---
PG Post Operative Report Pre & Post Diagnosis Operation Date: 04/09/24 11:00 Pre-Op Diagnosis: Right Hydronephrosis Urinary Tract Infection Post-Op Diagnosis: Right Hydronephrosis Urinary Tract Infection I identified the patient and participated in the time-out.: Yes Procedure Operation Date: 04/09/24 11:00 Actual Procedures p Cystoscopy and Right Ureteral Stent Exchange(Right) - Jesus Anderson MD Surgeon Jesus Anderson MD Tetryl Dissolver Operator None Estimated Blood Loss 0 Findings See Below Right ureteral stent was encrusted, successfully exchange with good drainage of cloudy urine Specimens None Drains 6 Tajik x 24 cm double-J ureteral stent in the right ureter 16 Tajik silicone catheter per urethra Anesthesia Type MAC Complications none Disposition Accompanied Patient To Recovery: Yes Disposition: Recovery Room Indications This is an 83-year-old female followed by urology for nephrolithiasis. She recently developed altered mental status and was found to have hydronephrosis despite stent being in position. Due to concern that the stent may be encrusted, she is brought to the OR for right ureteral stent exchange Description of Procedure The patient was identified in the holding area and informed consent was confirmed. She was marked on the right side, then was taken to the operating room where anesthesia was initiated. She was placed in the dorsal lithotomy position with all pressure points appropriately padded. She was prepped and draped in the usual sterile fashion and a preoperative timeout was performed. A well-lubricated cystoscope was inserted per urethra and panendoscopy was performed. Her bladder was somewhat small capacity. Stent was visualized coming from the right ureteral orifice. The left ureteral orifice was poorly visualized. No overt tumors were appreciated. A pair of stent graspers was used to withdraw the stent to the urethral meatus. I attempted to cannulate it with a 0.038 inch zip wire, however there was encrustation and the wire would not pass up to the kidney. The wire was instead advanced alongside the stent up to the kidney. The stent was removed. Over the wire, a 6 Tajik x 24 centimeter double-J ureteral stent was advanced. When the wire was removed, the proximal curl was visualized in the kidney with x-ray, and the distal curl visualized in the bladder with the cystoscope. There was drainage of cloudy urine through the stent. A 16 Tajik silicone catheter was subsequently placed. The balloon was inflated with 10 mL normal saline and the catheter was attached to gravity drainage. The patient was then awakened from anesthesia and was brought to the PACU in stable condition. I attest to the content of the Intraoperative Record and any orders documented therein. Any exceptions are noted below.
--- NOTE | 2024-04-09 11:47 | Fluoroscopy Report ---
FL KUB CLINICAL HISTORY: CYSTO, RT STENT EXCHANGE COMPARISON STUDY: CT of the abdomen and pelvis April 08, 2024. FLUOROSCOPY TIME: 7 seconds. Ka,r: 1.41 mGy FLUOROSCOPIC IMAGES: 1 FINDINGS: Fluoroscopy was provided during right ureteral stent exchange. IMPRESSION: Fluoroscopy provided during right ureteral stent exchange. ACT 112: Negative or not required by law. Electronically signed by: Rigo Harden M.D. 04/09/2024 11:45 AM
--- NOTE | 2024-04-09 12:58 | Anesthesiology Progress Note ---
Date of Service April 09, 2024 Anesthesia Post Procedure Vital Signs Vital Signs: Temp Pulse Pulse Pulse Resp BP BP 04/09/24 12:49 36.9 C 88 18 136/77 04/09/24 12:30 36.9 C 85 16 143/64 H 04/09/24 12:20 80 16 146/81 H 04/09/24 12:10 84 16 117/74 04/09/24 12:00 83 12 156/77 H 04/09/24 11:50 36 C L 96 H 16 169/84 H 04/09/24 07:21 04/09/24 07:06 36.9 C 85 16 134/78 04/09/24 02:11 36.8 C 18 138/64 04/09/24 01:50 36.8 C 18 138/64 04/09/24 01:39 120 H 18 130/72 04/09/24 00:16 78 16 139/61 04/08/24 23:20 80 22 163/83 H 04/08/24 22:12 70 04/08/24 21:56 37.1 C 79 16 129/72 Pulse Ox O2 Del Method O2 Flow Rate 04/09/24 12:49 94 Nasal Cannula 2 04/09/24 12:30 98 Nasal Cannula 2 04/09/24 12:20 97 Nasal Cannula 2 04/09/24 12:10 97 Oxymask 3 04/09/24 12:00 96 Oxymask 3 04/09/24 11:50 97 Oxymask 6 04/09/24 07:21 Room Air 04/09/24 07:06 96 Room Air 04/09/24 02:11 95 Room Air 04/09/24 01:50 95 Room Air 04/09/24 01:39 93 04/09/24 00:16 96 04/08/24 23:20 95 04/08/24 22:12 04/08/24 21:56 94 Room Air Transfer of Care Handoff Completed per policy Notes Mental Status: alert / awake / arousable Patient Amnestic to Procedure: Yes Nausea / Vomiting: adequately controlled Pain: adequately controlled Airway Patency, RR, SpO2: stable & adequate BP & HR: stable & adequate Hydration State: stable & adequate Anesthetic Complications: no major complications apparent
--- NOTE | 2024-04-09 19:23 | Billing Data ---
Date of Service April 09, 2024 Coding Level of Care Code 67200 INT INP/OBS CARE
[2024-04-09] MEDS: cefTRIAXone SODIUM 2,000 MG/50 ML BAG IV SCH (23:32)
[2024-04-10 07:18] LABS: Basophils # (auto) 0.06 K/uL (0.00-0.20); Basophils % (auto) 0.7 %; Eosinophils # (auto) 0.15 K/uL (0.00-0.50); Eosinophils % (auto) 1.8 %; Hematocrit (blood only) 31.7 % (37.0-47.0); Immature Granulocytes # (auto) 0.02 K/uL (0.01-0.20); Immature Granulocytes % (auto) 0.2 %; Lymphocytes # (auto) 2.75 K/uL (1.20-3.40); Lymphocytes % (auto) 33.9 %; Mean Corpuscular Hemoglobin 25.6 pg (25.0-34.0); Mean Corpuscular Hgb Conc 31.5 g/dL (32.0-36.0); Mean Corpuscular Volume 81.3 fL (80.0-100.0); Mean Platelet Volume 10.3 fL (9.4-12.4); Monocytes # (auto) 0.69 K/uL (0.11-0.59); Monocytes % (auto) 8.5 %; Neutrophils # (auto) 4.45 K/uL (1.40-6.50); Neutrophils % (auto) 54.9 %; Platelet Count 244 K/uL (130-400); RDW Coefficient of Variation 16.8 % (11.5-14.5); RDW Standard Deviation 49.6 fL (36.4-46.3); White Blood Count 8.12 K/ul (4.8-10.8)
[2024-04-10 07:35] LABS: BUN Creatinine Ratio 28.4 (10-20); Calcium 9.4 mg/dl (8.6-10.3); Potassium 4.3 mmol/L (3.5-5.1)
--- NOTE | 2024-04-10 09:27 | Urology Progress Note ---
Date of Service April 10, 2024 Assessment & Plan (1) Acute UTI: (2) Hydronephrosis: Plan POD #1 s/p Cystoscopy and Right Ureteral Stent Exchange - Afebrile with stable vitals - Labs reviewed - WBC 8.12, Creatinine 0.74 - Urine culture with more than 3 types of organisms, all high counts - She continues on Ceftriaxone - Ramirez draining yellow urine - No further intervention warranted - Maintain Ramirez catheter - Will arrange outpatient follow-up with our service for stent management - Continue supportive care - Urology will sign-off. Please call with any questions/concerns. Admission and Anticipated Discharge Date Admission Date: April 09, 2024 Subjective Pt seen at bedside this AM Awake and resting in bed on arrival No acute distress Ramirez draining yellow urine She denies any pain or discomfort at present Review of Systems Constitutional: as per Subjective / HPI Genitourinary: as per Subjective / HPI Physical Exam Constitutional: no acute distress Respiratory: no respiratory distress and no labored breathing Neurologic: awake Psychiatric: Orientation: alert and oriented to person Genitourinary: Ramirez intact Results & Data Vital Signs (Past 12 Hours) Vital Signs Temp Pulse Resp BP Pulse Ox O2 Del Method 04/10/24 07:41 36.9 C 82 16 124/71 93 Room Air PG Care Time/CCT Total # of Minutes Spent Total Time Spent with Patient: Total time spent is greater than 50% in coordination of care (as documented) at patient's floor/unit and/or counseling patient: Coding Level of Care Code 23431 SUB INP/OBS CARE 06/10MIN Diagnoses Acute UTI N39.0 Hydronephrosis Q62.11 Hydronephrosis type: with ureteropelvic junction obstruction (2) Hydronephrosis Hydronephrosis type: with ureteropelvic junction obstruction Qualified Code(s): Q62.11 - Congenital occlusion of ureteropelvic junction
[2024-04-10] MEDS ORDERED: TROLAMINE SALICYLATE 10% CRM 255 APPLN/85 GM TUBE EXT PRN (17:53)
--- NOTE | 2024-04-10 18:00 | Hospitalist Progress Note ---
Date of Service April 10, 2024 Assessment & Plan (1) Hydroureteronephrosis: Plan: Transferred from [facility] after presenting with AMS in setting of recent acute UTI - CT A/P on admission revealed severe right hydroureteronephrosis with right ureteral stent in place - Urology consulted > Cystoscopy and right ureteral stent exchange 04/[address] Anderson > Maintain Ramirez catheter - Follow-up with urology outpatient (2) Acute UTI: Plan: UA consistent with UTI on admission - UA positive, urine culture revealed 3 types of organisms present, all high counts. Recommended repeat collection - Urine culture repeated, pending -- of note, this was collected after dose of Ceftriaxone - Continue Ceftriaxone (3) Altered mental status: Plan: AMS on admission, improving - TSH, ammonia, CMP wnl - CT head without acute pathology - Suspect secondary to UTI Plan Updated daughter via phone call Ordered home meds as indicated by external medication history -- asked navigator for [facility] discharge summary for med rec Repeated urine culture Reviewed prior records -- in August 2023, peripheral smear suggestive of CLL/SLL; referred to heme/onc at that time but does not appear to have followed-up with them VTE prophylaxis: SCDs CODE STATUS: DNR/DNI Per conversation with daughter on 04/10, patient was previously on hospice services in September of this year, however hospice was discontinued due to patient improvement. Daughter did confirm she/patient want full workup/treatments. Admission and Anticipated Discharge Date Admission Date: April 09, 2024 Supervising Physician Co-Signing Physician Notes Attending Attestation - Chart reviewed, care plan d/w SANDY Aguilar. I agree with the barrera components of her documentation. Soham Momin MD Subjective Patient seen and evaluated at bedside. She reports some mild discomfort from her procedure yesterday. She reports having a good appetite. Denies nausea, vomiting, abdominal pain, chest pain, shortness of breath. Additional HPI difficult to obtain as patient is poor historian. No additional complaints or concerns at this time. Called daughter for additional history. Daughter reports patient was recently at [facility] where she was treated for a UTI and discharged home. Patient became altered at home and returned to [facility], which is when she was transferred via ambulance to [facility]. Physical Exam Physical Exam: General: No acute distress, nondiaphoretic, frail elderly female. Skin: The skin was without rashes, erythema, edema, or bruising. Cardiac: Regular rate and rhythm without murmurs gallops or rubs. Pulm: Clear to auscultation bilaterally without wheezes, rales or rhonchi. No retractions or accessory muscle use. Abdominal: Soft, nondistended. Expected tenderness following ureteral stent exchange. Bowel sounds present. : Ramirez catheter draining dark cloudy yellow urine. Neuro: A&O x2. No focal neurological deficits. Deficits from prior stroke baseline. Results & Data Results & Data Vital Signs (Past 12 Hours) Vital Signs Temp Pulse Resp BP Pulse Ox O2 Del Method O2 Flow Rate 04/10/24 14:44 98.4 F 83 16 146/71 H 95 Nasal Cannula 2 04/10/24 09:58 Nasal Cannula 2 04/10/24 07:41 98.4 F 82 16 124/71 93 Room Air Laboratory Results Reviewed CBC Reviewed BMP PG Care Time/CCT Total # of Minutes Spent Total Time Spent with Patient: Total time spent is greater than 50% in coordination of care (as documented) at patient's floor/unit and/or counseling patient: Coding Level of Care Code 41938 SUB INP/OBS CARE 3/50MIN Diagnoses Hydroureteronephrosis N13.30 Acute UTI N39.0 Altered mental status R40.0 Altered mental status type: somnolence (3) Altered mental status Altered mental status type: somnolence Qualified Code(s): R40.0 - Somnolence
[2024-04-10] MEDS: LACTULOSE SYRUP 30 GM/45 ML UDP PO SCH (20:25)
[2024-04-10] MEDS: OLANZAPINE 2.5 MG TAB PO SCH (20:25)
[2024-04-10] MEDS: traZODone HCL 50 MG TAB PO SCH (20:25)
[2024-04-11] MEDS: cefTRIAXone SODIUM 2,000 MG/50 ML BAG IV SCH (06:45)
[2024-04-11] MEDS: CITALOPRAM 40 MG TAB PO SCH (07:49)
[2024-04-11] MEDS: PANTOprazole 40 MG TAB PO SCH (07:49)
--- NOTE | 2024-04-11 08:39 | Hospitalist Progress Note ---
Date of Service April 11, 2024 Assessment & Plan (1) Hydroureteronephrosis: Plan: Transferred from [facility] after presenting with AMS in setting of recent acute UTI and discharged on CIPROFLOXACIN for UTI w/ development of allergic reaction/swelling/dry mucous membranes. Returned to [facility] and was dc and sx recurred and was brought here by EMS CT A/P on admission revealed severe right hydroureteronephrosis with right ureteral stent in place Urology consulted , Dr Anderson s/p Cystoscopy and right ureteral stent exchange with Dr. Anderson 04/09 OR report R ureteral stent encrusted, successfully exchanged with good drainage of cloudy urine Ng catheter in place and will need urology outpt f/u at discharge Ceftriaxone IV continued (declined last evening but agreeable today) -F/u repeat urine cx, also have req records from [facility] (have visit from 04/08 but not from visit prior, would like urine cx/sensitivities if possible) WBC wnl, afebrile. PT/OT consults placed given likely needing placement, ?OOA involved previously, ?neglect. ?prior hospice status but no longer in place (2) Acute UTI: Plan: UA consistent with UTI on admission w/ repeat collection recommended/pending (noting already given Ceftriaxone and was on Cipro PHARMACOMETRICIAN x 3-4 days w/ confusion). -No blood cultures obtained but could consider underlying bacteremia w/ ongoing infection vs worsened confusion w/ FLQ in >80yo F, QTC borderline on admission Continued Ceftriaxone IV as above and monitor final urine cx -- pin-point growth, re-incubating F/u OSH records as available (3) Altered mental status: Plan: AMS on admission, improving but remaining stable. ?baseline CT head negative on admission Ammonia NOT elevated Tx UTI as above, also working on constipation +palpable stool on exam and HARDENED stool reported by nursing. Is on oral iron? at baseline which is on hold for now, check iron studies Bowel regimen w/ colace BID, senna. Dulcolax WA if becomes agreeable but remains on lactulose BID as well Monitor for cdiff given recent abx use as well. Plan Updated daughter via phone call 04/10, unable to reach per CM today -- per prior conversation, patient was previously on hospice services in September of this year, however hospice was discontinued due to patient improvement. Daughter did confirm she/patient want full workup/treatments. Ordered home meds as indicated by external medication history -- asked navigator for [facility] discharge summary for med rec (repeat records req as only have short f/u visit to ER) Reviewed prior records -- in August 2023, peripheral smear suggestive of CLL/SLL; referred to heme/onc at that time but does not appear to have followed-up with them and will await outpatient records from [facility] but an arrange for f/u outpatient if desired. At that time flow cytometry returned suggestive of CLL DVT proph: SCDs for now, consider eliquis resumption in AM given hx RLE DVT if no significant hematuria w/ ng Dispo: continue Ceftriaxone IV, follow final urine cx. PT/OT consults placed Will attempt updating family as able Admission and Anticipated Discharge Date Admission Date: April 09, 2024 Supervising Physician Co-Signing Physician Notes The patient was not seen by me. The chart was reviewed. Case discussed with SANDY Sotomayor. Agree with assessment and plan Subjective Evaluated this afternoon, sitting up in bed eating lunch. Reports pain to her feet/toes. Voltaren gel ordered. Denies trouble breathing/shortness of breath, did dip to 89% on room air and on 2L NC presently. Initially declined Ceftriaxone IV but then was agreeable. Discussed significant abdominal distension on exam, suppository discussed and she reports she had it in the past but declines presently but agreeable to oral bowel regimen . Did have SMALL hardened stool this morning per nursing, will monitor. Questions/concerns addressed at this time. Physical Exam Physical Exam: General: 83yo female sitting up in bed eating lunch, NAD , alert to person/knows in hospital, not to events/time HEENT: head atraumatic, mm dry, trachea midline Resp; even/unlabored, slightly diminished in the bases, on 2L NC, no cough/wheezing CV: RRR, no significant m/r/g, no pitting edema, pulses present GI: +BS but slightly distended, +suprapubic discomfort +palpable stool : ng with concentrated urine MSK/Neuro: L sided deficits noted from prior CVA but able to follow commands as able, no agitation/aggressiveness b/l toes w/ tenderness to touch 2nd to overgrown nail/hammertoe Psych: alert to person/place, not time/events Results & Data Results & Data Vital Signs (Past 12 Hours) Vital Signs Temp Pulse Resp BP Pulse Ox O2 Del Method O2 Flow Rate 04/11/24 07:23 36.9 C 82 18 134/76 95 Nasal Cannula 2 04/10/24 21:21 Nasal Cannula 2 04/10/24 20:55 36.7 C 73 16 147/77 H 94 Nasal Cannula 2 Laboratory Results 04/11/24 Range/Units 10:21 WBC 8.30 (4.8-10.8) K/ul RBC 4.23 (4.20-5.40) M/uL Hgb 10.6 L (12.0-16.0) g/dl Hct 34.1 L (37.0-47.0) % MCV 80.6 (80.0-100.0) fL MCH 25.1 (25.0-34.0) pg MCHC 31.1 L (32.0-36.0) g/dL RDW Std Deviation 47.1 H (36.4-46.3) fL RDW Coeff of Atilio 16.2 H (11.5-14.5) % Plt Count 267 (130-400) K/uL MPV 10.0 (9.4-12.4) fL Sodium 141 (136-145) mmol/L Potassium 3.9 (3.5-5.1) mmol/L Chloride 103 (98-107) mmol/L Carbon Dioxide 28 (21-32) mmol/L Anion Gap 10 (3-11) BUN 23 (6-23) mg/dl Creatinine 0.61 (0.6-1.2) mg/dl Est Cr Clr Drug Dosing 74.0 ml/min eGFR 89.76 BUN/Creatinine Ratio 37.7 H (10-20) Glucose 166 H (70-99(Fasting)) mg/dl Calcium 9.4 (8.6-10.3) mg/dl Magnesium 1.8 (1.7-2.4) mg/dl Iron 42 (35-150) mcg/dl TIBC 392 (250-450) mcg/dl Unsaturated IBC 350 (155-355) mcg/dl Transferrin % Sat 11 L (15-50) % Ferritin 24.4 (8-388) ng/ml Vitamin B12 529 (180-914) pg/ml PG Care Time/CCT Total # of Minutes Spent Total Time Spent with Patient: Total time spent is greater than 50% in coordination of care (as documented) at patient's floor/unit and/or counseling patient: Coding Level of Care Code 58249 SUB INP/OBS CARE 3/50MIN Diagnoses Hydroureteronephrosis N13.30 Acute UTI N39.0 Altered mental status R40.0 Altered mental status type: somnolence (3) Altered mental status Altered mental status type: somnolence Qualified Code(s): R40.0 - Somnolence
[2024-04-11] MEDS: DICLOFENAC SOD 1% GEL 100 GM TUBE EXT SCH (10:29)
[2024-04-11 10:52] LABS: Hematocrit (blood only) 34.1 % (37.0-47.0); Hemoglobin 10.6 g/dl (12.0-16.0); Mean Corpuscular Hemoglobin 25.1 pg (25.0-34.0); Mean Corpuscular Hgb Conc 31.1 g/dL (32.0-36.0); Mean Corpuscular Volume 80.6 fL (80.0-100.0); Platelet Count 267 K/uL (130-400); RDW Coefficient of Variation 16.2 % (11.5-14.5); RDW Standard Deviation 47.1 fL (36.4-46.3); Red Blood Count 4.23 M/uL (4.20-5.40)
[2024-04-11 11:07] LABS: BUN Creatinine Ratio 37.7 (10-20); Calcium 9.4 mg/dl (8.6-10.3); Magnesium 1.8 mg/dl (1.7-2.4); Potassium 3.9 mmol/L (3.5-5.1)
[2024-04-11 11:25] LABS: Ferritin 24.4 ng/ml (8-388)
[2024-04-11] MEDS: PREGABALIN 75 MG CAP PO SCH (15:10)
--- NOTE | 2024-04-11 15:21 | Communication Note ---
Date of Service: April 11, 2024 The patient needs a hospital bed for her home. Eventual plan once medically stable to be home w/ daughter (unless otherwise rec by PT/OT consults which are pending). The patient has a medical condition (stroke with resulting left-sided hemiplegia) that requires positioning of the body in ways not feasible with an ordinary bed. The patient also needs a evelyn lift. Patient is non-ambulatory at baseline. Patient needs to be transferred between bed and chair or wheelchair to [facility] and, without lift use, the patient otherwise would be confined to the bed. Await official therapy evals. Did have drop to 88% on RA and placed on O2 but appears on room air. Pending repeat measurements, can arrange for O2 however notable will not be dc on Hosp ice services (for now)
--- NOTE | 2024-04-11 17:04 | XRay Report ---
EXAM: Radiographs of the Right Foot Complete 3 Views INDICATION: Pain. TECHNIQUE: Frontal, lateral and oblique views of the right foot. COMPARISON: No relevant prior studies available. FINDINGS: Bones/joints: The bones are demineralized. There is significant limitation evaluating the phalanges and distal metatarsals due to toe flexion. No evident fracture. No visible osseous destruction. No dislocation. I. Soft tissues: No abnormality noted. No radiopaque foreign body noted. IMPRESSION: Significantly limited examination without gross acute change. Osteoporosis. ACT 112: Negative or not required by law. Electronically signed by Ruthann Farah 04-11-2024 5:04 PM
--- NOTE | 2024-04-11 17:06 | XRay Report ---
EXAM: Radiographs of the Left Foot Complete 3 Views INDICATION: Pain. TECHNIQUE: Frontal, lateral and oblique views of the left foot. COMPARISON: No relevant prior studies available. FINDINGS: Bones/joints: The bones are demineralized. Middle and distal phalanges of the first 4 toes suboptimally assessed due to no significant osseous overlap. The bones are severely demineralized. There is no visible fracture. Narrowing of the first metatarsophalangeal joint probable. No osseous destruction or dislocation. Soft tissues: No abnormality noted. No radiopaque foreign body noted. IMPRESSION: Limited examination without acute osseous abnormality. Osteoporosis. ACT 112: Negative or not required by law. Electronically signed by Ruthann Farah 04-11-2024 5:06 PM
[2024-04-11] MEDS: DOCUSATE SODIUM 100 MG CAP PO SCH (20:13)
--- OUTSIDE RECORDS SUMMARY | 2024-04-12 03:48 | External Medical Summary | Summary of Care ---
Author Name Unknown Organization [facility] Address [address] [place] [address] Phone [phone] Care Team Providers Care Auto Winder Name Role Phone Anel Lolis Garzon DO Primary Care Provider [phone]- [phone] Reason for Visit * Reason Onset Date Comments FYI 04/10/2024 Encounter Details Date Type Department Care Team (Late st Contact Info) Description 04/10/2024 Telephone Access Center, [place] [address] [facility] *DO NOT REMOVE THIS DEPARTMENT* [place] [address] Services, Scheduling [address] [place] [address] Allergies Active Allergy Reactions Criticality Noted Date [...] as of this encounter (statuses as of 04/10/2024) Medications acetaminophen (TYLENOL) 325 MG Tablet Take [...] 2022. 30 Tablet 3 02/26/20 Active Nystatin 253130 UNIT/GM External Powder (Nystop) Apply topically to [...] Pain, Moderate or Pain, Severe. 20 Tablet 10/11/20 22 Active Eliquis 5 MG Oral Tablet [...] as of this encounter (statuses as of 04/10/2024) Active Problems Problem Noted Date Diagnosed Date [...] as of this encounter (statuses as of 04/10/2024) Social History Tobacco Use Types Packs/Day Years [...] encounter Miscellaneous Notes * Telephone Encounter - Lolis Tam DO - 04/10/2024 6:02 PM EST Patient needs to have appointment in office, has not been seen since 2021 * Telephone Encounter - Sejal Samson OSA - 04/10/2024 1:57 PM EST Caller: Shanta [facility] Reason for Call: Calling to advise that pt went to the [facility] over the weekend and signed out of hospice in order to have a procedure completed. Also advised that the follow items will need to be removed from the residence; they will no longer be provided by Hospice with her sighing out of their care: Oxygen Low Air Lock Mattress Hoya Lift Over the Bed Table She is not sure if PCP will want to write a script for the pt to replace said items. documented in this encounter Plan of Treatment [...] *SPIROMETRY ONCE FOR ASTHMA-ADULT 04/09/2022 COVID-19 Vaccine (3 - season) 2024 06/15/2020, 05/25/2020 Influenza Vaccine [...] Advance Directives occurred with: Patient Care Teams Auto Winder Relationship Specialty Start Date End Date Lolis Tam DO [address] [facility] [place] [address] PCP - General Family Medicine 08/13/21 documented as of this encounter
--- OUTSIDE RECORDS SUMMARY | 2024-04-12 03:48 | External Medical Summary | Summary of Care ---
Author Name Unknown Organization [facility] Address [address] [place] [address] Phone [phone] Care Team Providers Care Machining Associate Name Role Phone Anel Lolis Garzon DO Primary Care Provider +1- [phone] Reason for Visit * Reason Onset Date Comments FYI 04/10/2024 Encounter Details Date Type Department Care Team (Late st Contact Info) Description 04/10/2024 Telephone Access Center, [place] [address] [facility] *DO NOT REMOVE THIS DEPARTMENT* [place] [address] Services, Scheduling [address] [place] [address] Allergies Active Allergy Reactions Criticality Noted Date [...] 2022. 30 Tablet 3 02/26/20 Active Nystatin 328853 UNIT/GM External Powder (Nystop) Apply topically to [...] since 2021 * Telephone Encounter - Sejal Sasmon OSA - 04/10/2024 1:57 PM EST Caller: Shanta [facility] Reason for Call: Calling to advise that pt went to the [facility] over the weekend and signed out of [...] Advance Directives occurred with: Patient Care Teams Machining Associate Relationship Specialty Start Date End Date Lolis Tam DO [address] [facility] [place] [address] PCP - General Family Medicine 08/13/21 documented as of this encounter
--- OUTSIDE RECORDS SUMMARY | 2024-04-12 03:48 | External Medical Summary | Summary of Care ---
Author Name Unknown Organization [facility] Address [address] [facility] [place] [address] Phone [phone] Care Team Providers Care Wind Power Project Manager Name Role Phone Lolis Tam DO Primary Care Provider +1- [phone] Reason for Visit * Reason Onset Date Comments FYI 04/05/202404/07 LM/Home ho spice recert Encounter Details Date Type Department Care Team (Late st Contact Info) Description 04/05/2024 Telephone Family Practice [facility], [place] [address] [facility] [place] [address] Lolis Tam DO [address] [facility] [place] [address] FYI (04/07 LM/Home hospice [...] 2022. 30 Tablet 3 02/26/20 Active Nystatin 075186 UNIT/GM External Powder (Nystop) Apply topically to [...] Encounter - Alma Rosa Jay OSA - 04/10/2024 9:21 AM EST Pt is currently admitted at [facility]. * Telephone Encounter - Alma Rosa Jay OSA - 04/07/2024 9:33 AM EST Spoke to [facility]. Obtained a new number. Viktoria also sts [...] required. Phone number for Family Hospice is [phone] documented in this encounter Plan of Treatment [...] Advance Directives occurred with: Patient Care Teams Wind Power Project Manager Relationship Specialty Start Date End Date Lolis Tam DO [address] [facility] [place] [address] PCP - General Family Medicine 08/13/21 documented as of this encounter
--- OUTSIDE RECORDS SUMMARY | 2024-04-12 03:48 | External Medical Summary | Summary of Care ---
Author Name Unknown Organization [facility] Address [address] [place] [address] Phone [phone] Care Team Providers Care Installment Dealer Name Role Phone Anel Lolis Garzon DO Primary Care Provider +1- [phone] Reason for Visit * Reason Onset Date Comments FYI 04/10/2024 Encounter Details Date Type Department Care Team (Late st Contact Info) Description 04/10/2024 Telephone Access Center, [place] [address] [facility] *DO NOT REMOVE THIS DEPARTMENT* [place] [address] Services, Scheduling [address] [place] [address] Allergies Active Allergy Reactions Criticality Noted Date [...] 2022. 30 Tablet 3 02/26/20 Active Nystatin 781772 UNIT/GM External Powder (Nystop) Apply topically to [...] - 04/10/2024 1:57 PM EST Caller: Shanta [facility] Reason for Call: Calling to advise that pt went to the [facility] over the weekend and signed out [...] Advance Directives occurred with: Patient Care Teams Installment Dealer Relationship Specialty Start Date End Date Lolis Tam DO [address] [facility] [place] [address] PCP - General Family Medicine 08/13/21 documented as of this encounter
--- NOTE | 2024-04-12 07:56 | Hospitalist Progress Note ---
Date of Service April 12, 2024 Assessment & Plan (1) Hydroureteronephrosis: Plan: Transferred from [facility] after presenting with AMS in setting of recent acute UTI and discharged on CIPROFLOXACIN for UTI w/ development of allergic reaction/swelling/dry mucous membranes. Returned to [facility] and was dc and sx recurred and was brought here by EMS CT A/P noting severe right hydroureteronephrosis with right ureteral stent in place Urology consulted , Dr Anderson s/p Cystoscopy and right ureteral stent exchange with Dr. Anderson 04/09 --OR report R ureteral stent encrusted, successfully exchanged with good drainage of cloudy urine --Ng catheter in place and will need urology outpt f/u at discharge Ceftriaxone IV continued (day 3 04/12, EOT 04/16 for 7 day course) Urine cx repeat pending, noting did get dose Ceftriaxone prior to repeat collection, HOWEVER has pin-point growth, re-incubating --> Follow final cx/sensitivities NOTABLE PRIOR URINE CX IN THIS FACILITY HAVE RESISTANCE TO CIPROFLOXACIN/LEVOFLOXACIN, so not surprising did not improve from dc OSH on Cipro if same bug/resistance as earlier this year Repeat req for records w/ culture/results and ?if had obtained blood cultures. Likely would plan for 7 day IV course pending results but could transition to orals if having sensitivity results Colace, senna, suppository for today PT/OT consults pending, daughter reportedly wanting to take her home. Will need new hospital equipment as noted last evening, bed for repositioning given stroke/bed bound state as well as evelyn lift for transfers/etc. 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 -No blood cultures obtained but could consider underlying bacteremia w/ ongoing infection vs worsened confusion w/ FLQ in >80yo F, QTC borderline on admission Continued Ceftriaxone IV as above and monitor final urine cx -- pin-point growth, re-incubating F/u OSH records as available but RESISTANCE REPORTED ABOVE (3) Altered mental status: Plan: AMS on admission, improving but remaining stable. ?baseline CT head negative on admission Ammonia NOT elevated Tx UTI as above, also working on constipation +palpable stool on exam and HARDENED stool reported by nursing. Is on oral iron? at baseline which is on hold for now, check iron studies Bowel regimen w/ colace BID, senna. Dulcolax ID -- AGREEABLE 04/12, RN to administer Monitor for cdiff given recent abx use as well however has been constipated Plan Updated daughter via phone call 04/10, unable to reach today (went to [facility]) -- per prior conversation, patient was previously on hospice services in September of this year, however hospice was discontinued due to patient improvement. Daughter did confirm she/patient want full workup/treatments and wanting to take her home but will need supplies/equipement and will sign rx for CM today to assist in arranging. Reviewed prior records -- in August 2023, peripheral smear suggestive of CLL/SLL; At that time flow cytometry returned suggestive of CLL. Referred to heme/onc at that time but does not appear to have followed-up with them and will await outpatient records from [facility] but an arrange for f/u outpatient if desired. DVT proph: SCDs for now, eliquis 2.5mg BID resumed given age/weight given hx RLE DVT (no evidence for DVT on exam) Dispo: Ceftriaxone IV continued, monitor final cx/sensitivities. Working on bowel regimen. Lyrica resumed for neuropathic pain (B12 wnl) and will plan to resume tramadol as prior notes on for additional pain control. PT/OT consults pending. Consider f/u oncology if desired at [place], will need urology follow up. Admission and Anticipated Discharge Date Admission Date: April 11, 2024 Supervising Physician Co-Signing Physician Notes The patient was not seen by me. The chart was reviewed. Case discussed with SANDY Sotomayor. Agree with assessment and plan Subjective Evaluated this morning, sitting up in bed. Knows she is in the hospital, reports feeling a little better with neuropathy. She is on tramadol and will resume for tonight. Discussed prior urine cx at [facility] was RESISTANT to cipro but we should have on appropriate antibiotics. Passing gas but no BM, agreeable to suppository for today. Call to daughter but voicemail box,will reattempt again later. CM following. PT/OT consults pending and will need supplies prior to dc home, but patient does report her wishes are to be home with her daughter. No CP/SOB reported, on room air. Questions/concerns addressed at this time. Physical Exam Physical Exam: General: 83yo female sitting up in bed eating breakfast, NAD, reports feeling better, alert to person/knows in hospital, not event/times HEENT: head atraumatic, mm improved, trachea midline Resp; even/unlabored, slightly diminished in the bases, but on room air CV: RRR, no significant m/r/g, no pitting edema, pulses present GI: +BS but slightly distended, decreased suprapubic discomfort, +palpable stool L sided : ng with concentrated urine (improving) MSK/Neuro: L sided deficits noted from prior CVA but able to follow commands as able, no agitation/aggressiveness b/l toes w/ tenderness to touch 2nd to overgrown nail/hammertoe Psych: alert to person/place, not time/events Results & Data Results & Data Vital Signs (Past 12 Hours) Vital Signs Temp Pulse Resp BP Pulse Ox O2 Del Method 04/12/24 07:32 36.8 C 75 16 126/73 93 Room Air 04/11/24 20:25 36.7 C 89 18 151/78 H 93 Room Air Laboratory Results 04/11/24 Range/Units 10:21 WBC 8.30 (4.8-10.8) K/ul RBC 4.23 (4.20-5.40) M/uL Hgb 10.6 L (12.0-16.0) g/dl Hct 34.1 L (37.0-47.0) % MCV 80.6 (80.0-100.0) fL MCH 25.1 (25.0-34.0) pg MCHC 31.1 L (32.0-36.0) g/dL RDW Std Deviation 47.1 H (36.4-46.3) fL RDW Coeff of Atilio 16.2 H (11.5-14.5) % Plt Count 267 (130-400) K/uL MPV 10.0 (9.4-12.4) fL Sodium 141 (136-145) mmol/L Potassium 3.9 (3.5-5.1) mmol/L Chloride 103 (98-107) mmol/L Carbon Dioxide 28 (21-32) mmol/L Anion Gap 10 (3-11) BUN 23 (6-23) mg/dl Creatinine 0.61 (0.6-1.2) mg/dl Est Cr Clr Drug Dosing 74.0 ml/min eGFR 89.76 BUN/Creatinine Ratio 37.7 H (10-20) Glucose 166 H (70-99(Fasting)) mg/dl Calcium 9.4 (8.6-10.3) mg/dl Magnesium 1.8 (1.7-2.4) mg/dl Iron 42 (35-150) mcg/dl TIBC 392 (250-450) mcg/dl Unsaturated IBC 350 (155-355) mcg/dl Transferrin % Sat 11 L (15-50) % Ferritin 24.4 (8-388) ng/ml Vitamin B12 529 (180-914) pg/ml Diagnostic Findings Foot X-Ray 04/11/24 15:53 EXAM: Radiographs of the Right Foot Complete 3 Views INDICATION: Pain. TECHNIQUE: Frontal, lateral and oblique views of the right foot. COMPARISON: No relevant prior studies available. FINDINGS: Bones/joints: The bones are demineralized. There is significant limitation evaluating the phalanges and distal metatarsals due to toe flexion. No evident fracture. No visible osseous destruction. No dislocation. I. Soft tissues: No abnormality noted. No radiopaque foreign body noted. IMPRESSION: Significantly limited examination without gross acute change. Osteoporosis. ACT 112: Negative or not required by law. Electronically signed by Ruthann Farah 04-11-2024 5:04 PM Foot X-Ray 04/11/24 15:53 EXAM: Radiographs of the Left Foot Complete 3 Views INDICATION: Pain. TECHNIQUE: Frontal, lateral and oblique views of the left foot. COMPARISON: No relevant prior studies available. FINDINGS: Bones/joints: The bones are demineralized. Middle and distal phalanges of the first 4 toes suboptimally assessed due to no significant osseous overlap. The bones are severely demineralized. There is no visible fracture. Narrowing of the first metatarsophalangeal joint probable. No osseous destruction or dislocation. Soft tissues: No abnormality noted. No radiopaque foreign body noted. IMPRESSION: Limited examination without acute osseous abnormality. Osteoporosis. ACT 112: Negative or not required by law. Electronically signed by Ruthann Farah 04-11-2024 5:06 PM PG Care Time/CCT Total # of Minutes Spent Total Time Spent with Patient: Total time spent is greater than 50% in coordination of care (as documented) at patient's floor/unit and/or counseling patient: Coding Level of Care Code 06162 SUB INP/OBS CARE 3/50MIN Diagnoses Hydroureteronephrosis N13.30 Acute UTI N39.0 Altered mental status R40.0 Altered mental status type: somnolence (3) Altered mental status Altered mental status type: somnolence Qualified Code(s): R40.0 - Somnolence
[2024-04-12] MEDS: APIXABAN 2.5 MG TAB PO SCH (07:57)
[2024-04-12] MEDS: SENNA 8.6 MG TAB PO SCH (08:01)
[2024-04-12 10:45] LABS: Basophils # (auto) 0.06 K/uL (0.00-0.20); Basophils % (auto) 0.8 %; Eosinophils # (auto) 0.09 K/uL (0.00-0.50); Eosinophils % (auto) 1.2 %; Hematocrit (blood only) 33.4 % (37.0-47.0); Hemoglobin 10.6 g/dl (12.0-16.0); Immature Granulocytes # (auto) 0.01 K/uL (0.01-0.20); Immature Granulocytes % (auto) 0.1 %; Lymphocytes # (auto) 3.14 K/uL (1.20-3.40); Lymphocytes % (auto) 41.3 %; Mean Corpuscular Hemoglobin 25.5 pg (25.0-34.0); Mean Corpuscular Hgb Conc 31.7 g/dL (32.0-36.0); Mean Corpuscular Volume 80.5 fL (80.0-100.0); Mean Platelet Volume 9.9 fL (9.4-12.4); Monocytes # (auto) 0.65 K/uL (0.11-0.59); Monocytes % (auto) 8.6 %; Neutrophils # (auto) 3.65 K/uL (1.40-6.50); Platelet Count 284 K/uL (130-400); RDW Coefficient of Variation 16.6 % (11.5-14.5); RDW Standard Deviation 48.4 fL (36.4-46.3); Red Blood Count 4.15 M/uL (4.20-5.40)
[2024-04-12 10:46] LABS: Albumin Level 3.7 gm/dl (3.4-5.0); BUN Creatinine Ratio 36.9 (10-20); Bilirubin Direct 0.1 mg/dl (0-0.2); Bilirubin,Total 0.3 mg/dl (0.2-1.0); Calcium 9.4 mg/dl (8.6-10.3); Creatinine Clr Calc Pharmacy 69.4 ml/min; Potassium 3.9 mmol/L (3.5-5.1); Total Protein 7.1 gm/dl (6.0-8.3)
[2024-04-12] MEDS: bisacodyL 10 MG SUPP PR PRN (10:56)
[2024-04-12] MEDS: SOD PHOSPHATE/SOD BIPHOSPHATE ENEMA 132 ML BTL PR PRN (10:56)
[2024-04-12] MEDS: SODIUM CHLORIDE 0.9% 1,000 ML IV SCH (15:03)
[2024-04-12] MEDS: traMADol HCL 50 MG TABLET PO SCH (20:18)
--- NOTE | 2024-04-13 12:34 | Hospitalist Progress Note ---
Date of Service April 13, 2024 Assessment & Plan (1) Hydroureteronephrosis: Plan: Transferred from [facility] after presenting with AMS in setting of recent acute UTI and discharged on CIPROFLOXACIN for UTI w/ development of allergic reaction/swelling/dry mucous membranes. Returned to [facility] and was dc and sx recurred and was brought here by EMS CT A/P noting severe right hydroureteronephrosis with right ureteral stent in place Urology consulted s/p Cystoscopy and right ureteral stent exchange with Dr. Anderson 04/09 --OR report R ureteral stent encrusted, successfully exchanged with good drainage of cloudy urine --Ramirez catheter in place and will need urology outpt f/u at discharge Ceftriaxone IV continued (last day on 04/16 for 7 day course) Urine cx repeat pending, noting did get dose Ceftriaxone prior to repeat collection, currently growing Staph species, sensitivities to follow --> Follow final cx/sensitivities Prior urine cultures here have resistance to fluoroquinolones Records from [facility] show Proteus mirabilis urine culture resistant to ciprofloxacin, nitrofurantoin, tetracycline, and Bactrim PT/OT evals - patient is not a candidate for acute care PT at this time. Daughter reportedly wanting to take her home. Will need new hospital equipment as noted last evening, bed for repositioning given stroke/bed bound state as well as evelyn lift for transfers/etc. 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 -No blood cultures obtained but could consider underlying bacteremia w/ ongoing infection vs worsened confusion w/ FLQ in >80yo F, QTC borderline on admission Continued Ceftriaxone IV as above and monitor final urine cx -- staph species, sensitivities pending F/u OSH records as available but RESISTANCE REPORTED ABOVE (3) Altered mental status: Plan: AMS on admission, improving but remaining stable. ?baseline CT head negative on admission Ammonia NOT elevated Tx UTI as above Is on oral iron? at baseline which is on hold for now, iron studies with low transferrin % sat but otherwise WNL Bowel regimen w/ colace BID, senna Monitor for cdiff given recent abx use as well however has been constipated Plan Updated daughter via phone call 04/10 -- per prior conversation, patient was previously on hospice services in September of this year, however hospice was discon tinued due to patient improvement. Daughter did confirm she/patient want full workup/treatments and wanting to take her home but will need supplies/equipment and will sign rx for CM to assist in arranging Reviewed prior records -- in August 2023, peripheral smear suggestive of CLL/SLL; At that time flow cytometry returned suggestive of CLL. Referred to heme/onc at that time but does not appear to have followed-up with them and will await outpatient records from [facility] but an arrange for f/u outpatient if desired. DVT proph: SCDs for now, eliquis 2.5mg BID resumed given age/weight given hx RLE DVT (no evidence for DVT on exam) Dispo: Ceftriaxone IV continued, monitor final cx/sensitivities Consider f/u oncology if desired at or, will need urology follow up. Admission and Anticipated Discharge Date Admission Date: April 11, 2024 Supervising Physician Co-Signing Physician Notes The patient was not seen by me. The chart was reviewed. Case discussed with SANDY Larios. Agree with assessment and plan Subjective Patient seen and evaluated at bedside while eating lunch. She reports that her feet hurt, which is chronic. We discussed her current treatment course. No a cute complaints at this time. No additional questions or concerns. Physical Exam Physical Exam: General: No acute distress, nondiaphoretic, frail elderly female. Skin: The skin was without rashes, erythema, edema, or bruising. Cardiac: Regular rate and rhythm without murmurs gallops or rubs. Pulm: Clear to auscultation bilaterally without wheezes, rales or rhonchi. No respiratory distress. 93% on room air. Abdominal: Soft, nondistended, nontender. Bowel sounds present. : Ramirez catheter draining dark yellow urine. Neuro: A&O x2 (person, place). No focal neurological deficits. Deficits from prior stroke baseline. Results & Data Results & Data Vital Signs (Past 12 Hours) Vital Signs Temp Pulse Resp BP Pulse Ox O2 Del Method 04/13/24 07:46 Room Air 04/13/24 07:08 97.7 F 73 16 153/69 H 93 Room Air Laboratory Results Reviewed urine culture PG Care Time/CCT Total # of Minutes Spent Total Time Spent with Patient: Total time spent is greater than 50% in coordination of care (as documented) at patient's floor/unit and/or counseling patient: Coding Level of Care Code 22963 SUB INP/OBS CARE 2/35MIN Diagnoses Hydroureteronephrosis N13.30 Acute UTI N39.0 Altered mental status R40.0 Altered mental status type: somnolence (3) Altered mental status Altered mental status type: somnolence Qualified Code(s): R40.0 - Somnolence
--- NOTE | 2024-04-14 08:21 | Hospitalist Progress Note ---
Date of Service April 14, 2024 Assessment & Plan (1) Hydroureteronephrosis: Plan: Transferred from [facility] after presenting with AMS in setting of recent acute UTI and discharged on CIPROFLOXACIN for UTI w/ development of allergic reaction/swelling/dry mucous membranes. Returned to [facility] and was dc and sx recurred and was brought here by EMS * OSH records indicate had PROTEUS on urine cx from that facility which was RESISTANT to FLQ and bactrim/nitro/tetracyclines CT A/P noting severe right hydroureteronephrosis with right ureteral stent in place Urology consulted s/p Cystoscopy and right ureteral stent exchange with Dr. Anderson 04/09 --OR report R ureteral stent encrusted, successfully exchanged with good drainage of cloudy urine. Ng catheter in place and will need urology outpt f/u at discharge Ceftriaxone IV continued for proteus species (plan for 7 days given outside hospital w/ proteus RESISTANT to FLQ and no blood cx here or there to cover for possible longer standing infection) -- last day 04/16 Repeat urine cx inpatient given multiple organisms/repeat collection recommended and NOW GROWING MRSA --> Daptomycin IV added to cover for MRSA given resistance to Bactrim. If improving in next 24-48 hours can plan to dc on Linezolid to complete 5-10 day course. Probiotic added while on abx, monitor for diarrhea but had been several constipated prior. Large BM following enema 04/[address]/senna to prn and continue lactulose BID PT/OT consulted, CM provided rx for supplies but will not be delivered by [facility] until Wednesday and patient will remain inpatient until that time (2) Acute UTI: Plan: As above, urine cx [facility] w/ Proteus, resistant to FLQ/tetracyclines/nitro/bactrim On ceftriaxone for such, now w/ MRSA on urine cx and Dapto has been added w/ plan to complete 7 days Rocephin and can continue Dapto for now/convert to Linezolid at dc (3) Altered mental status: Plan: AMS on admission, improving but remaining stable. ?baseline CT head negative on admission Ammonia NOT elevated Tx UTI as above Alert to person/place, year as 2025 initially but otherwise appearing improved Reviewed prior records -- in August 2023, peripheral smear suggestive of CLL/SLL; At that time flow cytometry returned suggestive of CLL. Referred to heme/onc at that time but does not appear to have followed-up with them but can arrange for f/u outpatient if desired. Plan DVT proph: SCDs, eliquis 2.5mg BID (age/weight, will need new rx at dc) Dispo: continue Ceftriaxone, added Dapto IV Added tylenol for pain, vasoline to toenail on her left foot and can see if podiatry able to see while inpatient if doesn't fall off on it's own in the morning. Prior xrays neg for infection to bone as had in the past PLANNING FOR DC WEDNESDAY once supplies delivered from [facility] per CM Admission and Anticipated Discharge Date Admission Date: April 11, 2024 Supervising Physician Co-Signing Physician Notes The patient was not seen by me. The chart was reviewed. Case discussed with SANDY Sotomayor. Agree with assessment and plan Subjective Eval this morning, sitting up in bed, eating breakfast. Reports feeling TIRED today. Moved her bowels day prior/denies abdominal pain. Having ongoing pain to her toe nails -- appears has nail on her LEFT foot that is coming off. Needs podiatry followup. She reports in hospital, year 2025 initially but knew month March. Ng in place, slightly concentrated. Will monitor UOP/consider IVF if not improvement but also discussed MRSA in urine and added abx. Physical Exam 2 Physical Exam: General: 83yo female sitting up in bed eating breakfast, NAD, reports feeling tired/pain to her toes HEENT: head atraumatic, mm improved compared to 04/12 but slightly dry, trachea midline Resp; even/unlabored, slightly diminished in the bases, but remains on room air, no cough/tachypnea CV: RRR, no significant m/r/g, no pitting edema, pulses present GI: +BS, less distension, no significant tenderness : ng with less concentrated urine but still slightly concentrated MSK/Neuro: L sided deficits noted from prior CVA but able to follow commands as able, no agitation/aggressiveness b/l toes w/ tenderness to touch 2nd to overgrown nail/hammertoe appears LEFT foot with 2nd toenail coming off, RN to apply vasoline for now Psych: alert to person/place, not time/events Results & Data Results & Data Vital Signs (Past 12 Hours) Vital Signs Temp Pulse Resp BP Pulse Ox O2 Del Method 04/14/24 07:24 37.1 C 70 16 114/71 90 Room Air 04/13/24 20:50 Room Air Laboratory Results 04/12/24 09:59 04/14/24 08:28 PG Care Time/CCT Total # of Minutes Spent Total Time Spent with Patient: Total time spent is greater than 50% in coordination of care (as documented) at patient's floor/unit and/or counseling patient: Coding Level of Care Code 59840 SUB INP/OBS CARE 3/50MIN Diagnoses Hydroureteronephrosis N13.30 Acute UTI N39.0 Altered mental status R40.0 Altered mental status type: somnolence (3) Altered mental status Altered mental status type: somnolence Qualified Code(s): R40.0 - Somnolence
[2024-04-14] MEDS: ADVANCED PROBIOTIC 625 MG CAPSULE PO SCH (08:59)
[2024-04-14 09:13] LABS: Albumin Globulin Ratio 1.2 (0.9-2); Albumin Level 3.4 gm/dl (3.4-5.0); BUN Creatinine Ratio 38.1 (10-20); Bilirubin,Total 0.2 mg/dl (0.2-1.0); Calcium 8.6 mg/dl (8.6-10.3); Creatinine Clr Calc Pharmacy 71.6 ml/min; Globulin 2.8 gm/dl (2.5-4.0); Potassium 3.8 mmol/L (3.5-5.1); Total Protein 6.2 gm/dl (6.0-8.3)
[2024-04-14] MEDS: DAPTOmycin 300 MG in SYRINGE 0 ML IV SCH (10:11)
[2024-04-14] MEDS: ACETAMINOPHEN 500 MG TAB PO PRN (15:27)
[2024-04-15 07:23] LABS: BUN Creatinine Ratio 41.1 (10-20); Calcium 8.4 mg/dl (8.6-10.3); Creatinine Clr Calc Pharmacy 80.6 ml/min; Potassium 3.6 mmol/L (3.5-5.1)
--- NOTE | 2024-04-15 16:01 | Hospitalist Progress Note ---
Date of Service April 15, 2024 Assessment & Plan (1) Hydroureteronephrosis: Plan: Transferred from [facility] after presenting with AMS in setting of recent acute UTI and discharged on ciprofloxacin for UTI w/ development of allergic reaction/swelling/dry mucous membranes. records indicate proteus on urine culture was resistant to a FLQ/ CTAP noting severe right hydroureteronephrosis with right ureteral stent in place Urology consulted s/p Cystoscopy and right ureteral stent exchange with Dr. Anderson 04/09 BMP reviewed 04/15 - stable Ceftriaxone IV continued for proteus species -- last day 04/16 Repeat urine cx inpatient given multiple organisms/repeat collection recommended positive for MRSA --> Daptomycin IV added to cover for MRSA given resistance to Bactrim. Plan to dc on Linezolid to complete 5-10 day course. Probiotic added while on abx PT/OT consulted, provided rx for supplies but will not be delivered by [facility] until Wednesday and patient will remain inpatient until that time (2) Acute UTI: Plan: see plan #1 (3) Altered mental status: Plan: AMS on admission, improving but remaining stable. ?baseline CT head negative on admission Ammonia NOT elevated Reviewed prior records -- in August 2023, peripheral smear suggestive of CLL/SLL; At that time flow cytometry returned suggestive of CLL. Referred to heme/onc at that time but does not appear to have followed-up with them but can arrange for f/u outpatient if desired. Plan DVT proph: SCDs, eliquis 2.5mg BID (age/weight, will need new rx at dc) Dispo: continue Ceftriaxone, added Dapto IV Added tylenol for pain, vasoline to toenail on her left foot and can see if podiatry able to see while inpatient if doesn't fall off on it's own in the morning. Prior xrays neg for infection to bone as had in the past PLANNING FOR DC WEDNESDAY once supplies delivered from [facility] per Admission and Anticipated Discharge Date Admission Date: April 11, 2024 Subjective Patient seen and examined this morning. patient w/ no acute complaints today. Results & Data Results & Data Vital Signs (Past 12 Hours) Vital Signs Temp Pulse Resp BP Pulse Ox O2 Del Method 04/15/24 15:25 36.7 C 74 16 145/72 H 96 Room Air 04/15/24 07:31 36.6 C 68 16 113/70 93 Room Air PG Care Time/CCT Total # of Minutes Spent Total Time Spent with Patient: Total time spent is greater than 50% in coordination of care (as documented) at patient's floor/unit and/or counseling patient: Coding Level of Care Code 13939 SUB INP/OBS CARE 06/10MIN Diagnoses Hydroureteronephrosis N13.30 Acute UTI N39.0 Altered mental status R40.0 Altered mental status type: somnolence (3) Altered mental status Altered mental status type: somnolence Qualified Code(s): R40.0 - Somnolence
[2024-04-15] MEDS: SENNA 8.6 MG TAB PO PRN (16:55)
[2024-04-15] MEDS: DOCUSATE SODIUM 100 MG CAP PO PRN (16:55)
[2024-04-16 07:34] VITALS: RESP 16
[2024-04-16] MEDS: cefTRIAXone SODIUM 2,000 MG/50 ML BAG IV SCH (08:59)
--- NOTE | 2024-04-16 12:52 | Hospitalist Progress Note ---
Date of Service April 16, 2024 Assessment & Plan (1) Hydroureteronephrosis: Plan: Transferred from [facility] after presenting with AMS in setting of recent acute UTI and discharged on ciprofloxacin for UTI w/ development of allergic reaction/swelling/dry mucous membranes. records indicate proteus on urine culture was resistant to a FLQ. CTAP noting severe right hydroureteronephrosis with right ureteral stent in place Urology consulted - s/p Cystoscopy and right ureteral stent exchange with Dr. Anderson 04/09 BMP reviewed 04/15 - stable s/p Ceftriaxone IV completed on 04/16 for proteus species. Repeat urine cx inpatient given multiple organisms/repeat collection recommended positive for MRSA 04/10. Daptomycin IV to cover for MRSA given resistance to Bactrim. Plan to dc on Linezolid to complete 5-10 day course. - last dose of abx 04/24 Probiotic added while on abx PT/OT consulted, provided rx for supplies but will not be delivered by [facility] until Wednesday and patient will remain inpatient until that time (2) Acute UTI: Plan: see plan #1 (3) Altered mental status: Plan: AMS on admission, improving but remaining stable. ?baseline CT head negative on admission Ammonia NOT elevated Reviewed prior records -- in August 2023, peripheral smear suggestive of CLL/SLL; At that time flow cytometry returned suggestive of CLL. Referred to heme/onc at that time but does not appear to have followed-up with them but can arrange for f/u outpatient if desired. Plan DVT proph: SCDs, eliquis 2.5mg BID (age/weight, will need new rx at dc) Dispo: anticipate discharge home 04/17. Added tylenol for pain, vasoline to toenail on her left foot and can see if podiatry able to see while inpatient if doesn't fall off on it's own in the morning. Prior xrays neg for infection to bone as had in the past PLANNING FOR DC WEDNESDAY once supplies delivered from [facility] per Admission and Anticipated Discharge Date Admission Date: April 11, 2024 Subjective Patient seen and examined this morning. patient complained of toe pain. states she typically has a cream she puts on her feet at home. denied any additional complaints. Physical Exam Constitutional: WD/WN, vitals as above Eyes: PERRL, conjunctivae normal, anicteric sclerae Respiratory: breathing unlabored Cardiovascular: well perfused Results & Data Results & Data Vital Signs (Past 12 Hours) Vital Signs Temp Pulse Resp BP Pulse Ox O2 Del Method 04/16/24 07:33 36.7 C 73 16 128/71 94 Room Air PG Care Time/CCT Total # of Minutes Spent Total Time Spent with Patient: Total time spent is greater than 50% in coordination of care (as documented) at patient's floor/unit and/or counseling patient: Coding Level of Care Code 29583 SUB INP/OBS CARE 06/10MIN Diagnoses Hydroureteronephrosis N13.30 Acute UTI N39.0 Altered mental status R40.0 Altered mental status type: somnolence (3) Altered mental status Altered mental status type: somnolence Qualified Code(s): R40.0 - Somnolence
[2024-04-17 07:34] VITALS: BP 118/68; PULSE 70; TEMP 97.7; O2SAT 95
--- NOTE | 2024-04-17 13:19 | Discharge Summary ---
<Statement entered by Mary Swartz MD - 04/17/24 14:24> Acute metabolic encephalopathy due to urinary tract infection was present on admission and resolved with treatment of UTI Discharge Summary Date of Service April 17, 2024 Principal Dx & Hospital Course #1 = Principal Diagnosis (1) Hydroureteronephrosis: Transferred from [facility] after presenting with AMS in setting of recent acute UTI and discharged on ciprofloxacin for UTI w/ development of allergic reaction/swelling/dry mucous membranes. records indicate proteus on urine culture was resistant to a FLQ. CTAP: severe right hydroureteronephrosis with right ureteral stent in place Urology consulted - s/p Cystoscopy and right ureteral stent exchange with Dr. Anderson 04/09 - catheter to remain in place at discharge, outpatient f/u for stent management s/p Ceftriaxone IV completed on 04/16 for proteus species. Repeat urine cx: positive for MRSA 04/10. - received dapto --> discharged with Linezolid to complete course - recommend Probiotic while on abx PT/OT consulted, CM provided rx for supplies - d/c to home today Patient did have drop in oxygen to 88% on Room air. Recommend having oxygen available at home for discharge. (2) Acute UTI: see plan #1 (3) Altered mental status: AMS on admission, improving but remaining stable. ?baseline CT head negative on admission Ammonia NOT elevated Reviewed prior records -- in August 2023, peripheral smear suggestive of CLL/SLL; At that time flow cytometry returned suggestive of CLL. Referred to heme/onc at that time but does not appear to have followed-up with them but can arrange for f/u outpatient if desired. Plan Dispo: discharge to home today Notes For Next Care Provider Greg dose reduced continue course of linezolid for MRSA UTI Admission HPI Per Admitting Provider 83 year old female with a past medical history of vascular dementia presenting with concern for swelling/dry mouth, AMS. Pt is unable to provide history. Attempted to call daughter, no answer. Much of HPI per chart review. Pt lives with daughter at home and is currently on hospice. Pt has chronic indwelling Ramirez catheter. Was seen at [facility] 4 days ago for UTI and started on cipro. Daughter had concern for allergic reaction today due to swelling and dry mucous membranes, AMS- returned to [facility] and was d/c. Symptoms recurred , so pt was brought here via EMS. Pt denies any acute pain, states she just wants to sleep. ED course Significant for: CBC without leukocytosis, Hgb=10.7- which appears to be close to baseline. CMP unremarkable. UA consistent with UTI. CT A&P with Right ureteral stent in place. Severe right hydroureteronephrosis. CT head and CXR without acute findings. Discharge Exam General: NAD, VS as above Resp: normal respiratory effort, lungs clear to auscultation CV: RRR, no murmur, Abd: normal bowel sounds, non tender, no hepatosplenomegaly Neuro: A&O x3, left sided deficits from prior stroke Discharge Plan Discharge Items Patient Disposition: Home - Home Health Services Reason For Visit: HYDROURETERONEPHROSIS, UTI Discharge Diagnosis: HYDROURETERONEPHROSIS, UTI Condition on Discharge: Fair Activity: Resume your previous activity Non-emergency contact: Primary Care Provider Call non-emergency contact if: you have any medication questions, your symptoms worsen, your pain is not controlled and your temperature is above 101 Follow-up/Referrals: Jesus Anderson MD [Physician] - (f/u for stent management ) Lolis Tam DO [Primary Care Provider] - Diet: Regular Diet Texture: Dental soft (bite-sized) Liquid Consistency: Twilight thick Addtl Attending Provider Instructions: You have been hospitalized for concerns for confusion/urinary tract infection and need for stent exchange. Urology was consulted and you had a stent exchanged and review of outside hospital urine cultures indicated ECOLI prior which had RESISTANCE to ciprofloxacin which is likely why you did not improve on this medication. You were treated with IV Ceftriaxone while in the hospital and repeat urine culture that showed MRSA and at discharge are being continued on LINEZOLID for 7 more days to complete the course. First dose AM 12/3, this is a twice a day medication. lease monitor for any increased diarrhea/abdominal pain or fever on antibiotics and alert primary care if these occur. Recommend you continue a daily probiotic on antibiotics to prevent issues - this can be purchased over the counter. Ramirez catheter is to remain in place per urology until follow up. Prescriptions have been provided for hospital equipment to be delivered to your house for ongoing care given your wishes. You should also continue a bowel regimen to prevent constipation which was effective while in the hospital with colace/senna and as needed enema. These can also be purchased over the counter. Eliquis has been continued given your history of afib and DVT however given your weight and age, this has been reduced to 2.5mg twice daily to prevent bleeding risk. No other changes to your medications. Your medication list was updated to reflect what was most current from [facility], however if there are discrepencies for CHRONIC medications, please follow the [facility] list. Please follow up with primary care within 7-10 days at discharge to monitor your progress since hospitalization and for ongoing care/management. Please return to the ER with any fevers/chills, increased confusion, chest pain, shortness of breath, or for any other symptoms concerning for you. It has been a pleasure being a part of the medical team providing for you while you have been in the hospital. Take care! Pending Studies at Discharge: No Stand-Alone Forms: My [facility] [employer], Smoking Cessation Medications and DC Order Prescriptions: New Eliquis 2.5 mg tablet 2.5 mg PO BID Qty: 60 0RF linezolid 600 mg tablet 600 mg PO BID Qty: 14 0RF lactulose 10 gram/15 mL (15 mL) Solution 30 g PO BID 30 Days Qty: 2700 0RF trazodone 50 mg Tablet 25 mg PO HS Qty: 30 0RF olanzapine 2.5 mg Tablet 2.5 mg PO HS Qty: 3 0RF trolamine salicylate [Myoflex] 10 % Cream 1 applic EXT TID PRN (Reason: muscle pain) Qty: 10 0RF Continued umeclidinium 62.5 mcg/actuation Blister With Device 1 inh inhalation DAILY Qty: 30 0RF albuterol sulfate 90 mcg/actuation aerosol powdr breath activated 2 inh inhalation Q4H PRN (Reason: shortness of breath or wheezing) Qty: 1 0RF pantoprazole 40 mg Tablet,Delayed Release (Dr/Ec) 40 mg PO DAILY Qty: 30 0RF sennosides [Senokot] 8.6 mg Tablet 17.2 mg PO QAM Qty: 0 0RF Rx Instructions: buy over the counter fluticasone propion-salmeterol 113-14 mcg/actuation aerosol powdr breath activated 1 inh inhalation BID Qty: 1 0RF cyanocobalamin (vitamin B-12) 500 mcg Tablet 1,000 mcg PO QAM Qty: 0 0RF Rx Instructions: buy over the counter acetaminophen 325 mg Tablet 650 mg PO Q6 MDD 3g PRN (Reason: mild pain scale 1-10) Qty: 1 0RF Rx Instructions: over the counter polyethylene glycol 3350 [Miralax] 17 gram Powder In Packet 17 g PO BID Qty: 100 0RF Rx Instructions: buy over the counter atorvastatin 10 mg tablet 10 mg PO DAILY Qty: 30 0RF citalopram 10 mg tablet 10 mg PO DAILY Qty: 30 0RF tramadol 50 mg tablet 50 mg PO BID Qty: 60 0RF ferrous sulfate [FeroSul] 325 mg (65 mg iron) tablet 325 mg PO DAILY Qty: 30 0RF lorazepam 1 mg tablet 0.5 mg PO DAILY Qty: 14 0RF diclofenac sodium 1 % gel 1 ea TOPICAL TID Qty: 100 0RF Rx Instructions: apply to feet for pain, buy over the counter melatonin 5 mg Tablet 5 mg PO HS Qty: 1 0RF Rx Instructions: buy over the counter magnesium chloride 64 mg magnesium Tablet 128 mg PO DAILY Qty: 1 0RF Rx Instructions: buy over the counter Changed pregabalin 50 mg capsule 75 mg PO Q8 Qty: 90 0RF Discontinued cephalexin 500 mg Capsule 500 mg PO QID Qty: 10 0RF Eliquis 5 mg tablet 5 mg PO BID Qty: 60 0RF Discharge Orders: Discharge Order (Routine); Ordered 04/17/24 Ordered By: Lillie Luevano Admission Data Admit Date/Time: 04/11/24 14:52 Attending Provider: Mary Swartz Admit Provider: Onur Vance Primary Care Provider: Lolis Tam Other Providers: Jam Gallagher; [facility] Hospital Stay Data Consultations 04/09/24 01:36 ED Decision to Admit Stat 04/09/24 04:23 Consult Urology Routine Procedures Performed Operation Date: 04/09/24 11:00 Actual Procedures p Cystoscopy and Right Ureteral Stent Exchange(Right) - Jesus Anderson MD Diagnostic Imagining Performed 04/08/24 21:57 CT head/brain wo con Stat 04/08/24 22:02 CT abd pelvis wo con Stat 04/09/24 FL KUB Routine Pending Results Patient Have Any Pending Studies at Discharge: No Discharge Instructions Given to Patient (Per Discharging Provider) You have been hospitalized for concerns for confusion/urinary tract infection and need for stent exchange. Urology was consulted and you had a stent exchanged and review of outside hospital urine cultures indicated ECOLI prior which had RESISTANCE to ciprofloxacin which is likely why you did not improve on this medication. You were treated with IV Ceftriaxone while in the hospital and repeat urine culture that showed MRSA and at discharge are being continued on LINEZOLID for 7 more days to complete the course. First dose AM 12/3, this is a twice a day medication. lease monitor for any increased diarrhea/abdominal pain or fever on antibiotics and alert primary care if these occur. Recommend you continue a daily probiotic on antibiotics to prevent issues - this can be purchased over the counter. Raimrez catheter is to remain in place per urology until follow up. Prescriptions have been provided for hospital equipment to be delivered to your house for ongoing care given your wishes. You should also continue a bowel regimen to prevent constipation which was effective while in the hospital with colace/senna and as needed enema. These can also be purchased over the counter. Eliquis has been continued given your history of afib and DVT however given your weight and age, this has been reduced to 2.5mg twice daily to prevent bleeding risk. No other changes to your medications. Your medication list was updated to reflect what was most current from [facility], however if there are discrepencies for CHRONIC medications, please follow the [facility] list. Please follow up with primary care within 7-10 days at discharge to monitor your progress since hospitalization and for ongoing care/management. Please return to the ER with any fevers/chills, increased confusion, chest pain, shortness of breath, or for any other symptoms concerning for you. It has been a pleasure being a part of the medical team providing for you while you have been in the hospital. Take care! Total Time Total Time Spent Total Time Spent (In Minutes): Time spent day of discharge 40 minutes including direct patient care, medication reconciliation, documentation, review of labs and images, and coordination of care. Coding Level of Care Code 77507 INP/OBS DISCH >30 MIN Diagnoses Hydroureteronephrosis N13.30 Acute UTI N39.0 Altered mental status R40.0 Altered mental status type: somnolence
== END 2024-04-17 13:50 | disposition home health service (06) | DRG 660 ==
LOC: ED 21:46 → 3W 21:46 → SUATTDRO 04-09 01:09 → 3W 04-09 01:48 → SUATTDRO 04-11 14:52
DX: Z79.84 Long term (current) use of oral hypoglycemic drugs; B96.4 Proteus (mirabilis) (morganii) as the cause of diseases classified elsewhere; Z96.0 Presence of urogenital implants; Z88.0 Allergy status to penicillin; F01.50 Vascular dementia, unspecified severity, without behavioral disturbance, psychotic disturbance, mood disturbance, and anxiety; N13.6 Pyonephrosis; R41.82 Altered mental status, unspecified; B95.62 Methicillin resistant Staphylococcus aureus infection as the cause of diseases classified elsewhere; Z66 Do not resuscitate; Z91.041 Radiographic dye allergy status; Z87.891 Personal history of nicotine dependence; I69.354 Hemiplegia and hemiparesis following cerebral infarction affecting left non-dominant side; Z79.01 Long term (current) use of anticoagulants

== ENCOUNTER 2024-04-24 11:21 | Inpatient (IN) ==
--- NOTE | 2024-04-24 11:58 | Emergency Department Note ---
Impression & Plan Acute confusion, Acute UTI, Failure of outpatient treatment, Leukocytosis, Hx MRSA infection ED Provider Note NAME: RUTHANN HANLEY AGE: 83 SEX: F : 1940 ARRIVES VIA: Ambulance INFORMANT: [Patient][ems] ED PROVIDER(S): [Ash Ruggiero MD] CHIEF COMPLAINT: Hypertension HISTORY OF PRESENT ILLNESS: The patient is an 83-year-old female with no current complaints. She was told by her family that her blood pressure was high and they wanted her checked. She apparently had a right ureteral stent placed recently. The patient denies any headache or chest pain. She is not short of breath. There has been no fever or cough. Of note, the patient is a poor historian. She does by report live with her daughter. The daughter is not currently at the bedside. I was able to speak with the patient's daughter, Anita. The patient was confused and somewhat delirious this morning. This was noted also by the home nurse. Because of the high blood pressure, the confusion, the patient was sent to the hospital by EMS. PMHx/PSHx/Social Hx: See Below PHYSICAL EXAM: GENERAL: Patient is in no acute distress. HEENT: No acute trauma, normocephalic atraumatic, mucous membranes moist, no nasal congestion. NECK: No stridor, no adenopathy, no meningismus, trachea is midline. LUNGS: Clear to auscultation bilaterally, no wheeze, no rhonchi, breath sounds equal. HEART: Without murmurs gallops or rubs, regular rate and rhythm. ABDOMEN: Soft, nontender, no peritonitis. EXTREMITIES: No cyanosis, full range of motion of all the joints without pain or difficulty. NEUROLOGIC: Poor historian, awake and alert. SKIN: No jaundice, no diaphoresis. DIFFERENTIAL DIAGNOSIS: Hypertension, UTI, electrolyte disturbance, among others. EMERGENCY DEPARTMENT PROCEDURES: MEDICAL DECISION MAKING: There is a mild leukocytosis, this could be consistent with infection. A mild anemia was seen, there was a normal platelet count. No coagulopathy. No electrolyte abnormality or renal failure. No concerning liver enzyme elevation. No evidence for pancreatitis. ECG showed a normal sinus rhythm, no acute ischemic change. Cardiac enzyme testing x 1 was not consistent with acute cardiac injury. Urinalysis suggests infection. KUB shows the right ureteral stent to be in proper position. Chest x-ray does not show findings of pneumonia or heart failure. On exam, the patient was hypertensive. She was not toxic or febrile. Patient was given IV daptomycin as she has a history of a recent MRSA urinary infection. She received IV labetalol for her higher blood pressure. Given the patient's hypertension, her persistent UTI, the right ureteral stent and now change in mental status, hospitalization is indicated. I suspect the urinary infection has caused her confusion. I did speak with urology. No emergent urologic intervention required. I did speak with the patient and the patient's daughter. The on-call hospitalist has been consulted. Prior/Outside records/notes reviewed: Today's EMS notes describing her presentation and transport to this hospital. ECG per my interpretation: Indication was hypertension. The ECG shows a normal sinus rhythm with a rate of 88. There is some diffuse nonspecific ST change and some baseline artifact. There is an old inferior infarct. There is no ST elevation, no PVCs. The QTc is 421. Continuous Cardiac Monitoring per my interpretation: An order was placed for continuous cardiac monitoring. The monitor shows a rate of 99 with normal sinus rhythm. Imaging/x-ray results per my interpretation: Chest does not show pneumonia or CHF. KUB shows a right ureteral stent to be in position. Some constipation was seen. Chronic Medical/Social conditions affecting care: Advanced age. Care/Management discussed with: Urology on-call-Dr. Tomas. Case management and the on-call hospitalist. Level of care consideration(s): After review of the information above and other included data: --I believe the patient requires escalation of care to admission DISPOSITION: Admission Past Med/Surg History Problem List (Updated 04/24/24 @ 18:30 by Ash Ruggiero MD) Hx MRSA infection (Acute) Leukocytosis (Acute) Failure of outpatient treatment (Acute) Acute UTI (Acute) Acute confusion (Acute) Ureteral stent present Delirium Hospice care (Acute) Failure of outpatient treatment (Acute) Hydronephrosis (Acute) Acute UTI (Acute) Altered mental status (Acute) Hydroureteronephrosis Choledocholithiasis Urinary tract obstruction by kidney stone Nephrolithiasis Abnormal CBC UTI (urinary tract infection) (Acute) Chronic pain No pertinent past surgical history COVID-19 (Acute) weaned off oxygen GERD (gastroesophageal reflux disease) Hyperlipidemia Insomnia Rheumatoid arthritis Type 2 diabetes mellitus with diabetic polyneuropathy Major depressive disorder Vascular dementia Constipation Acute osteomyelitis of toe (Acute) Medical History History of deep venous thrombosis (DVT) of distal vein of right lower extremity Anticoagulated History of CVA (cerebrovascular accident) Hypertension Diabetes Social History Smoking Status: Former smoker Tobacco Type: Cigarettes Second Hand Exposure: No; Do You Dip or Chew Tobacco: No; Hx Alcohol Use: No Hx Substance Use: No Preferred Language: Greek Communication Ability: Effective 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 Beliefs That Will Affect Care: None Current Living Situation: Family Current Living Situation Comment: [facility] Feels Safe at Home: Yes Assistive Devices: Hospital Bed and Mechanical Lift Allergies Allergies Allergy/AdvReac Type Severity Reaction Status Date / Time ibuprofen Allergy Unknown Unknown Unverified 09/04/23 17:30 Iodinated Contrast Media Allergy Unknown Unknown Unverified 09/04/23 17:30 iodine Allergy Unknown Unknown Unverified 09/04/23 17:30 metformin Allergy Unknown Unknown Unverified 09/04/23 17:30 naproxen Allergy Unknown Unknown Unverified 09/04/23 17:30 Penicillins Allergy Unknown Unknown Unverified 04/24/24 15:54 pregabalin Allergy Unknown Unknown Unverified 09/04/23 17:30 Home Meds Previous Rx's Medication Instructions Recorded acetaminophen 325 mg tablet 650 mg (2 x 325 mg) PO Q6 PRN mild 09/15/23 pain scale 1-10 #1 tab albuterol sulfate 90 mcg/actuation 2 inh inhalation Q4H PRN shortness 09/15/23 breath activated powder inhaler of breath or wheezing #1 ea atorvastatin 10 mg tablet 10 mg PO DAILY #30 tabs 09/15/23 citalopram 10 mg tablet 10 mg PO DAILY #30 tabs 09/15/23 cyanocobalamin (vitamin B-12) 500 1,000 mcg (2 x 500 mcg) PO QAM B12 09/15/23 mcg tablet deficiency #0 tabs diclofenac sodium 1 % topical gel 1 ea topical TID #100 grams 09/15/23 ferrous sulfate 325 mg (65 mg 325 mg PO DAILY #30 tabs 09/15/23 iron) tablet (FeroSul) fluticasone 113 mcg-salmeterol 14 1 inh inhalation BID #1 ea 09/15/23 mcg/actuation breath activated powdr lorazepam 1 mg tablet 0.5 mg (1/2 x 1 mg) PO DAILY #14 09/15/23 tabs magnesium chloride 64 mg 128 mg (2 x 64 mg magnesium) PO 09/15/23 (magnesium chloride) tablet DAILY #1 tab melatonin 5 mg tablet 5 mg PO HS #1 tab 09/15/23 pantoprazole 40 mg tablet,delayed 40 mg PO DAILY #30 tabs 09/15/23 release polyethylene glycol 3350 17 gram 17 g PO BID #100 ea 09/15/23 oral powder packet (Miralax) sennosides 8.6 mg tablet (Senokot) 17.2 mg (2 x 8.6 mg) PO QAM #0 tabs 09/15/23 tramadol 50 mg tablet 50 mg PO BID #60 tabs 09/15/23 umeclidinium 62.5 mcg/actuation 1 inh inhalation DAILY #30 ea 09/15/23 blister powder for inhalation apixaban 2.5 mg tablet (Eliquis) 2.5 mg PO BID #60 tabs 04/14/24 lactulose 10 gram/15 mL (15 mL) 30 g (45 mL) PO BID 30 days #2,700 04/17/24 oral solution mL linezolid 600 mg tablet 600 mg PO BID #14 tabs 04/17/24 olanzapine 2.5 mg tablet 2.5 mg PO HS #3 tabs 04/17/24 pregabalin 50 mg capsule 75 mg (1.5 x 50 mg) PO Q8 #90 caps 04/17/24 trazodone 50 mg tablet 25 mg (1/2 x 50 mg) PO HS #30 tabs 04/17/24 trolamine salicylate 10 % topical 1 applic EXT TID PRN muscle pain 04/17/24 cream (Myoflex) #10 grams Results & Data (ED) Vital Signs Vital Signs - 24 hr 04/24/24 11:28 04/24/24 11:51 04/24/24 12:06 Temperature 36.9 C Temperature Source Oral Pulse Rate 98 H 99 H Pulse Rate [Apical] Pulse Strength [Apical] Respiratory Rate 19 Respiratory Effort / Characteristics Non-Labored Spontaneous Respiratory Depth Normal Respiratory Pattern Regular Blood Pressure 157/96 H Blood Pressure [Left Arm] Blood Pressure [Right Arm] Blood Pressure Mean 116 Blood Pressure Mean [Left Arm] Blood Pressure Mean [Right Arm] Pulse Oximetry 96 99 Oxygen Delivery Method Room Air Room Air Sepsis Recent Fever Within 48 Hours No Sepsis New/Unexplained Change in Mental Status No Sepsis Action Taken by Nursing No Action Required 04/24/24 13:13 04/24/24 13:39 04/24/24 13:40 Temperature 36.4 C L Temperature Source Oral Pulse Rate 99 H Pulse Rate [Apical] 96 H 98 H Pulse Strength [Apical] Normal Respiratory Rate 19 17 Respiratory Effort / Characteristics Non-Labored Spontaneous Non-Labored Spontaneous Respiratory Depth Normal Normal Respiratory Pattern Regular Blood Pressure 175/97 H Blood Pressure [Left Arm] 138/114 H 175/97 H Blood Pressure [Right Arm] Blood Pressure Mean Blood Pressure Mean [Left Arm] 122 123 Blood Pressure Mean [Right Arm] Pulse Oximetry 98 99 Oxygen Delivery Method Room Air Sepsis Recent Fever Within 48 Hours Sepsis New/Unexplained Change in Mental Status Sepsis Action Taken by Nursing 04/24/24 14:14 04/24/24 15:16 04/24/24 17:02 Temperature Temperature Source Pulse Rate 75 81 Pulse Rate [Apical] 102 H Pulse Strength [Apical] Normal Respiratory Rate 19 Respiratory Effort / Characteristics Non-Labored Spontaneous Respiratory Depth Normal Respiratory Pattern Regular Blood Pressure 166/85 H Blood Pressure [Left Arm] Blood Pressure [Right Arm] 171/88 H Blood Pressure Mean Blood Pressure Mean [Left Arm] Blood Pressure Mean [Right Arm] 115 Pulse Oximetry 94 Oxygen Delivery Method Room Air Sepsis Recent Fever Within 48 Hours Sepsis New/Unexplained Change in Mental Status Sepsis Action Taken by Group Home Medications Current Medication List: was personally reviewed by me Laboratory Data Attestation: I reviewed the patient's lab results. 04/24/24 12:10 04/24/24 12:10 Lab Results 04/24/24 04/24/24 Range/Units 12:10 12:45 WBC 11.18 H (4.8-10.8) K/ul RBC 4.52 (4.20-5.40) M/uL Hgb 11.4 L (12.0-16.0) g/dl Hct 36.2 L (37.0-47.0) % MCV 80.1 (80.0-100.0) fL MCH 25.2 (25.0-34.0) pg MCHC 31.5 L (32.0-36.0) g/dL RDW Std Deviation 47.4 H (36.4-46.3) fL RDW Coeff of Atilio 16.4 H (11.5-14.5) % Plt Count 240 (130-400) K/uL MPV 9.8 (9.4-12.4) fL Immature Gran % (Auto) 0.2 % Neut % (Auto) 58.2 % Lymph % (Auto) 37.5 % Petroleum % (Auto) 3.3 % Eos % (Auto) 0.4 % Baso % (Auto) 0.4 % Neut # (Auto) 6.51 H (1.40-6.50) K/uL Lymph # (Auto) 4.19 H (1.20-3.40) K/uL Petroleum # (Auto) 0.37 (0.11-0.59) K/uL Eos # (Auto) 0.04 (0.00-0.50) K/uL Baso # (Auto) 0.05 (0.00-0.20) K/uL Immature Gran # (Auto) 0.02 (0.01-0.20) K/uL PT 10.7 (9.0-12.0) Seconds INR 1.0 (0.9-1.1) APTT 26 (21-31) Seconds PTT Ratio 1.0 Sodium 139 (136-145) mmol/L Potassium 4.4 (3.5-5.1) mmol/L Chloride 104 (98-107) mmol/L Carbon Dioxide 27 (21-32) mmol/L Anion Gap 8 (3-11) BUN 20 (6-23) mg/dl Creatinine 0.67 (0.6-1.2) mg/dl Est Cr Clr Drug Dosing 67.0 ml/min eGFR 87.75 BUN/Creatinine Ratio 29.9 H (10-20) Glucose 128 H (70-99(Fasting)) mg/dl Calcium 9.9 (8.6-10.3) mg/dl Magnesium 1.8 (1.7-2.4) mg/dl Total Bilirubin 0.3 (0.2-1.0) mg/dl AST 22 (13-39) U/L ALT 16 (7-52) U/L Alkaline Phosphatase 105 H (34-104) U/L Troponin I High Sens 5.6 (0-14) pg/ml Total Protein 7.8 (6.0-8.3) gm/dl Albumin 4.4 (3.4-5.0) gm/dl Globulin 3.4 (2.5-4.0) gm/dl Albumin/Globulin Ratio 1.3 (0.9-2) Lipase 15 (11-82) U/L Urine Color Yellow Urine Appearance Cloudy A (Clear) Urine pH 8.5 H (4.5-7.5) Ur Specific [place] 1.020 (1.000-1.030) Urine Protein 2+ H (Negative) Urine Glucose (UA) Negative (Negative) Urine Ketones Negative (Negative) Urine Blood 3+ H (Negative) Urine Nitrite Negative (Negative) Urine Bilirubin Negative (Negative) Urine Urobilinogen Negative (Negative) Ur Leukocyte Esterase 3+ H (Negative) Urine RBC >20 H (0-2) /hpf Urine WBC >50 H (0-5) /hpf Ur Epithelial Cells 0-2 (0-2) /hpf Urine Bacteria 3+ H (None Seen) Administered Medications Daptomycin 325 mg/ Syringe 6.5 mls @ 3.25 mls/min IV Q24H DAWNA; Protocol Stop: 04/29/24 13:29 Last Admin: 04/24/24 14:31 Dose: 3.25 mls/min Documented By: MELLISA Ceftriaxone Sodium (Rocephin) 1,000 mg in 50 mls @ 100 mls/hr IV Q24H DAWNA Stop: 05/04/24 15:59 Last Infusion: 04/24/24 17:33 Dose: Infused Documented By: Admin: 04/24/24 17:02 Dose: 100 mls/hr Documented By: MELLISA Discontinued Medications Diphenhydramine HCl (Diphenhydramine 50 Mg/Ml Vial) 25 mg IV NOW STA Stop: 04/24/24 15:42 Last Admin: 04/24/24 15:56 Dose: 25 mg Documented By: MELLISA Ioversol (Optiray 320 100ml) 93 ml IV ONCE ONE Stop: 04/24/24 16:37 Last Admin: 04/24/24 16:37 Dose: 93 ml Documented By: ELOISE Labetalol HCl (Labetalol Hcl Iv 5 Mg/Ml 20ml) 10 mg IV NOW STA Stop: 04/24/24 13:20 Last Admin: 04/24/24 13:40 Dose: 10 mg Documented By: MELLISA Methylprednisolone (Methylprednisolone 125 Mg/2 Ml Vial) 125 mg IV NOW STA Stop: 04/24/24 15:42 Last Admin: 04/24/24 15:56 Dose: 125 mg Documented By: MELLISA Imaging Data Radiologist's Impression: Chest X-Ray 04/24/24 11:39 XR chest 1V portable CLINICAL HISTORY: Chest pain, nonspecific TECHNIQUE: Single frontal radiograph of the chest was obtained. Comparison: None available at the time of this dictation. FINDINGS: No lines and tubes are seen. The cardiomediastinal silhouette is normal. Lungs are underinflated but clear. No evidence of pleural effusion or pneumothorax. IMPRESSION: No acute chest disease. ACT 112: Negative or not required by law. Electronically signed by: Thad Lees M.D. 04/24/2024 12:38 PM KUB X-Ray 04/24/24 11:59 KUB HISTORY: Acute abdominal pain with nausea stent placement COMPARISON: CT 04/08/2024 FINDINGS: Right hemidiaphragm elevation. Cardiomegaly. Nonobstructive bowel gas pattern. Moderate fecal retention in the right hemicolon. A right ureteral stent is in place which appears to be in satisfactory positioning. No definite renal or ureteral calculi identified. Probable persistent pneumobilia. Bones appear grossly intact. The No pneumoperitoneum or pneumatosis. No fracture. IMPRESSION: 1. Nonobstructive bowel gas pattern with moderate colonic fecal retention 2. Right ureteral stent in place. 3. No renal or ureteral calculi identified. ACT 112: Negative or not required by law. The above report was generated using voice recognition software. It may contain grammatical, syntax or spelling errors. Electronically signed by: Rakesh Pisano M.D. 04/24/2024 12:39 PM Abdomen/Pelvis CT 04/24/24 15:41 EXAM: CT Abdomen and Pelvis With Intravenous Contrast INDICATION: Abdominal and back pain. TECHNIQUE: Axial computed tomography images of the abdomen and pelvis with intravenous contrast. Sagittal and coronal reformatted images were created and reviewed. This CT exam was performed using one or more of the following dose reduction techniques: automated exposure control, adjustment of the mA and/or kV according to patient size, and/or use of iterative reconstruction technique. CONTRAST: 93ml of Optiray 320 was administered intravenously. COMPARISON: 04/08/2024 FINDINGS: Limitations: None. Lung bases: There is new atelectasis in the right lung base. Pleural space: No visualized pleural effusion or pneumothorax. Heart: No abnormality noted. Mediastinum: No abnormality noted. ABDOMEN: Liver: No abnormality noted. Gallbladder and bile ducts: Stable extensive pneumobilia and mild Intermatic biliary dilatation. Smooth hepatic contour. No visible mass. The gallbladder is surgically absent. Air noted in the common bile duct. No fluid collection in the cholecystectomy bed. Pancreas: Homogeneous enhancement. No mass, inflammation or ductal dilation. Spleen: No significant abnormality noted. Adrenals: No significant abnormality noted. Kidneys and ureters: There is heterogeneous diminished enhancement of the right kidney. There is a right ureteral stent in place with decreased hydronephrosis now mild in degree. Distal loop of the stent is in the bladder and proximal loop in the renal pelvis. No urinary stone identified. Small cortical hypodensity in the left kidney likely a cyst. No urinary gas. Stomach and bowel: Moderate amounts of stool throughout the colon with extensive left diverticulosis. No obstruction or diverticulitis. PELVIS: Appendix: Well seen and appears normal. Bladder: The bladder is collapsed by catheter and is likely inflamed. No visible stone. Reproductive: Hysterectomy. ABDOMEN and PELVIS: Intraperitoneal space: No free air. No significant fluid collection. Bones/joints: Degenerative changes noted throughout the spine. No acute osseous abnormality seen. Soft tissues: Rectus diastases. There is a small fat-containing left inguinal hernia. Vasculature: No abdominal aortic aneurysm. Lymph nodes: No pathologically enlarged lymph nodes. IMPRESSION: 1. Right pyelonephritis and cystitis. Ureteral stent in good position with decreased hydronephrosis. 2. Moderate colonic stool and diverticulosis. No obstruction or diverticulitis. ACT 112: Negative or not required by law. Electronically signed by Ruthann Farah 04-24-2024 4:54 PM Discharge Plan Visit Data Chief Complaint: Hypertension ED Provider: Ash Ruggiero Discharge Problem: Acute confusion, Acute UTI, Failure of outpatient treatment, Leukocytosis, Hx MRSA infection Patient Disposition: Admitted As Inpatient Condition: Fair Forms Stand Alone Forms: [place] Prescriptions Prescriptions: No Action umeclidinium 62.5 mcg/actuation Blister With Device 1 inh inhalation DAILY Qty: 30 0RF albuterol sulfate 90 mcg/actuation aerosol powdr breath activated 2 inh inhalation Q4H PRN (Reason: shortness of breath or wheezing) Qty: 1 0RF pantoprazole 40 mg Tablet,Delayed Release (Dr/Ec) 40 mg PO DAILY Qty: 30 0RF sennosides [Senokot] 8.6 mg Tablet 17.2 mg PO QAM Qty: 0 0RF Rx Instructions: buy over the counter fluticasone propion-salmeterol 113-14 mcg/actuation aerosol powdr breath activated 1 inh inhalation BID Qty: 1 0RF cyanocobalamin (vitamin B-12) 500 mcg Tablet 1,000 mcg PO QAM Qty: 0 0RF Rx Instructions: buy over the counter acetaminophen 325 mg Tablet 650 mg PO Q6 MDD 3g PRN (Reason: mild pain scale 1-10) Qty: 1 0RF Rx Instructions: over the counter polyethylene glycol 3350 [Miralax] 17 gram Powder In Packet 17 g PO BID Qty: 100 0RF Rx Instructions: buy over the counter atorvastatin 10 mg tablet 10 mg PO DAILY Qty: 30 0RF citalopram 10 mg tablet 10 mg PO DAILY Qty: 30 0RF tramadol 50 mg tablet 50 mg PO BID Qty: 60 0RF ferrous sulfate [FeroSul] 325 mg (65 mg iron) tablet 325 mg PO DAILY Qty: 30 0RF lorazepam 1 mg tablet 0.5 mg PO DAILY Qty: 14 0RF diclofenac sodium 1 % gel 1 ea TOPICAL TID Qty: 100 0RF Rx Instructions: apply to feet for pain, buy over the counter melatonin 5 mg Tablet 5 mg PO HS Qty: 1 0RF Rx Instructions: buy over the counter magnesium chloride 64 mg magnesium Tablet 128 mg PO DAILY Qty: 1 0RF Rx Instructions: buy over the counter Eliquis 2.5 mg tablet 2.5 mg PO BID Qty: 60 0RF trazodone 50 mg Tablet 25 mg PO HS Qty: 30 0RF olanzapine 2.5 mg Tablet 2.5 mg PO HS Qty: 3 0RF trolamine salicylate [Myoflex] 10 % Cream 1 applic EXT TID PRN (Reason: muscle pain) Qty: 10 0RF lactulose 10 gram/15 mL (15 mL) Solution 30 g PO BID 30 Days Qty: 2700 0RF linezolid 600 mg tablet 600 mg PO BID Qty: 14 0RF pregabalin 50 mg capsule 75 mg PO Q8 Qty: 90 0RF Referrals Referrals: Lolis Tam DO [Primary Care Provider] - Discharge Problem: Leukocytosis Qualifiers: Leukocytosis type: unspecified Qualified Code(s): D72.829 - Elevated white blood cell count, unspecified
[2024-04-24 12:24] LABS: Basophils # (auto) 0.05 K/uL (0.00-0.20); Basophils % (auto) 0.4 %; Eosinophils # (auto) 0.04 K/uL (0.00-0.50); Eosinophils % (auto) 0.4 %; Hematocrit (blood only) 36.2 % (37.0-47.0); Hemoglobin 11.4 g/dl (12.0-16.0); Immature Granulocytes # (auto) 0.02 K/uL (0.01-0.20); Immature Granulocytes % (auto) 0.2 %; Lymphocytes # (auto) 4.19 K/uL (1.20-3.40); Lymphocytes % (auto) 37.5 %; Mean Corpuscular Hemoglobin 25.2 pg (25.0-34.0); Mean Corpuscular Hgb Conc 31.5 g/dL (32.0-36.0); Mean Corpuscular Volume 80.1 fL (80.0-100.0); Mean Platelet Volume 9.8 fL (9.4-12.4); Monocytes # (auto) 0.37 K/uL (0.11-0.59); Monocytes % (auto) 3.3 %; Neutrophils # (auto) 6.51 K/uL (1.40-6.50); Neutrophils % (auto) 58.2 %; Platelet Count 240 K/uL (130-400); RDW Coefficient of Variation 16.4 % (11.5-14.5); RDW Standard Deviation 47.4 fL (36.4-46.3); Red Blood Count 4.52 M/uL (4.20-5.40); White Blood Count 11.18 K/ul (4.8-10.8)
--- NOTE | 2024-04-24 12:40 | XRay Report ---
KUB HISTORY: Acute abdominal pain with nausea stent placement COMPARISON: CT 04/08/2024 FINDINGS: Right hemidiaphragm elevation. Cardiomegaly. Nonobstructive bowel gas pattern. Moderate fec al retention in the right hemicolon. A right ureteral stent is in place which appears to be in satisf actory positioning. No definite renal or ureteral calculi identified. Probable persistent pneumobilia . Bones appear grossly intact. The No pneumoperitoneum or pneumatosis. No fracture. IMPRESSION: 1. Nonobstructive bowel gas pattern with moderate colonic fecal retention 2. Right ureteral stent in place. 3. No renal or ureteral calculi identified. ACT 112: Negative or not required by law. The above report was generated using voice recognition software. It may contain grammatical, syntax o r spelling errors. Electronically signed by: Rakesh Pisano M.D. 04/24/2024 12:39 PM
--- NOTE | 2024-04-24 12:40 | XRay Report ---
XR chest 1V portable CLINICAL HISTORY: Chest pain, nonspecific TECHNIQUE: Single frontal radiograph of the chest was obtained. Comparison: None available at the time of this dictation. FINDINGS: No lines and tubes are seen. The cardiomediastinal silhouette is normal. Lungs are underinflated but clear. No evidence of pleural effusion or pneumothorax. IMPRESSION: No acute chest disease. ACT 112: Negative or not required by law. Electronically signed by: Thad Lees M.D. 04/24/2024 12:38 PM
[2024-04-24 12:43] LABS: Albumin Globulin Ratio 1.3 (0.9-2); Albumin Level 4.4 gm/dl (3.4-5.0); BUN Creatinine Ratio 29.9 (10-20); Bilirubin,Total 0.3 mg/dl (0.2-1.0); Calcium 9.9 mg/dl (8.6-10.3); Globulin 3.4 gm/dl (2.5-4.0); Magnesium 1.8 mg/dl (1.7-2.4); Potassium 4.4 mmol/L (3.5-5.1); Total Protein 7.8 gm/dl (6.0-8.3)
[2024-04-24 12:48] LABS: Troponin I High Sensitivity 5.6 pg/ml (0-14)
[2024-04-24 12:50] LABS: Partial Thromboplastin Time 26 Seconds (21-31); Prothrombin Time 10.7 Seconds (9.0-12.0)
[2024-04-24 13:05] LABS: Appearance Urine Cloudy (Clear); Bilirubin Urine Negative (Negative); Blood Urine 3+ (Negative); Color Urine Yellow; Glucose Urine UA Negative (Negative); Ketones Urine Negative (Negative); Leukocyte Esterase Urine 3+ (Negative); Nitrite Urine Negative (Negative); Protein Urine 2+ (Negative); Urobilinogen Urine Negative (Negative); pH Urine 8.5 (4.5-7.5)
[2024-04-24 13:16] LABS: Bacteria Urine 3+ (None Seen); Epithelial Cell Urine 0-2 /hpf (0-2); RBC Urine >20 /hpf (0-2); WBC Urine >50 /hpf (0-5)
[2024-04-24] MEDS: LABETALOL HCL IV 5 MG/ML 20ML IV STA (13:40)
[2024-04-24] MEDS: DAPTOmycin 325 MG in SYRINGE 0 ML IV SCH (14:31)
--- NOTE | 2024-04-24 14:53 | History & Physical Report ---
Date of Service April 24, 2024 Assessment & Plan (1) History of deep venous thrombosis (DVT) of distal vein of right lower extremity: (2) Delirium: (3) Vascular dementia: (4) Constipation: (5) Major depressive disorder: (6) Hyperlipidemia: (7) GERD (gastroesophageal reflux disease): (8) UTI (urinary tract infection): Plan Pt is a 83 yo female with a past medical history of delirium, recent hydronephrosis with stent placement, COPD, major depressive disorder, CLL, and constipation who presents to the hospital on 04/24 for worsening delirium and illness symptoms. #UTI #Recent stent placement - urine indicative of UTI, just finished course of linezolid prior to admission - had recent R ureteral stent replaced Dr Anderson 04/09; urology consulted - will tx with rocephin and daptomycin IV until urine cx results - CT abd pending (pretreated with IV benadyl and methylpred due to hx of reaction) #Delirium - has a hx of vascular dementia - daughter notes recent mental status changes with recent UTI and hospitalization - suspect this is due to polypharmacy with multiple agents that cause sedation (trazodone, tramadol, ativan, olanzapine) vs UTI vs recent hospital stay - last TSH wnl 2 weeks ago #Constipation - chronic, no BM in days - will do miralax BID + senokot but may need to escalate #GERD - pantoprazole home dose once daily increased to BID given epigastric tenderness and daughter notes hx bad reflux #HTN - asymptomatic, permissible for now #Depression - continue home citalopram #HLD - holding home atorvastatin while on daptomycin #COPD - continue home inhalers #Hx DVT - on eliquis at home Holding home: Tramadol, trazodone, olanzapine, lorazepam as these may be contributing to her AMS. Holding home lyrica as this is now on her allergy list. Diet: NPO at midnight pending urology VTE prophylaxis: home eliquis History of Present Illness Chief Complaint: Altered mental status, UTI Primary Care Provider: Lolis Tam DO Pt is a 83 yo female with a past medical history of delirium, recent hydronephrosis with stent placement, COPD, major depressive disorder, and constipation who presents to the hospital on 04/24 for worsening delirium and illness symptoms. Pt seen at bedside, oriented to self only. She states she is here because she feels warm today and one of her toes hurts. She states she otherwise feels fine. She states she lives with her daughter but then with her granddaughter, then states I should call her mom to ask what is actually going on because she says she is not sure how to explain it. Called daughter Anita in the chart, who is her daughter that she lives with. She states that she brought her in because she has been getting progressively more confused the last few days, arguing with her at home about who even she is to her and that today she noticed she was also very flushed and sweaty and just looked ill. Tremor has been present for a few months and daughter states her anxiety has been very bad ever since pt's son (her brother) . She states that the pt gets very sick with UTIs and often gets very confused with them but this is the worst it has been. Discussed code status with her, pt is DNR/DNI per pt's wishes. Pt was on hospice until 2 weeks ago when she did not qualify anymore. Daughter states with IV contrast she gets foot/ankle swelling. Never facial swelling. Usually given prednisone/Benadryl before scans. Allergies Allergy/AdvReac Type Severity Reaction Status Date / Time ibuprofen Allergy Unknown Unknown Unverified 09/04/23 17:30 Iodinated Contrast Media Allergy Unknown Unknown Unverified 09/04/23 17:30 iodine Allergy Unknown Unknown Unverified 09/04/23 17:30 metformin Allergy Unknown Unknown Unverified 09/04/23 17:30 naproxen Allergy Unknown Unknown Unverified 09/04/23 17:30 Penicillins Allergy Unknown Unknown Unverified 04/24/24 15:54 pregabalin Allergy Unknown Unknown Unverified 09/04/23 17:30 Home Medications Medication Instructions Recorded Confirmed Type acetaminophen 325 mg tablet 650 mg (2 x 325 mg) PO Q6 PRN mild 09/15/23 04/24/24 Rx pain scale 1-10 #1 tab albuterol sulfate 90 mcg/actuation 2 inh inhalation Q4H PRN shortness 09/15/23 04/24/24 Rx breath activated powder inhaler of breath or wheezing #1 ea atorvastatin 10 mg tablet 10 mg PO DAILY #30 tabs 09/15/23 04/24/24 Rx citalopram 10 mg tablet 10 mg PO DAILY #30 tabs 09/15/23 04/24/24 Rx cyanocobalamin (vitamin B-12) 500 1,000 mcg (2 x 500 mcg) PO QAM B12 09/15/23 04/24/24 Rx mcg tablet deficiency #0 tabs diclofenac sodium 1 % topical gel 1 ea topical TID #100 grams 09/15/23 04/24/24 Rx ferrous sulfate 325 mg (65 mg 325 mg PO DAILY #30 tabs 09/15/23 04/24/24 Rx iron) tablet (FeroSul) fluticasone 113 mcg-salmeterol 14 1 inh inhalation BID #1 ea 09/15/23 04/24/24 Rx mcg/actuation breath activated powdr lorazepam 1 mg tablet 0.5 mg (1/2 x 1 mg) PO DAILY #14 09/15/23 04/24/24 Rx tabs magnesium chloride 64 mg 128 mg (2 x 64 mg magnesium) PO 09/15/23 04/24/24 Rx (magnesium chloride) tablet DAILY #1 tab melatonin 5 mg tablet 5 mg PO HS #1 tab 09/15/23 04/24/24 Rx pantoprazole 40 mg tablet,delayed 40 mg PO DAILY #30 tabs 09/15/23 04/24/24 Rx release polyethylene glycol 3350 17 gram 17 g PO BID #100 ea 09/15/23 04/24/24 Rx oral powder packet (Miralax) sennosides 8.6 mg tablet (Senokot) 17.2 mg (2 x 8.6 mg) PO QAM #0 tabs 09/15/23 04/24/24 Rx tramadol 50 mg tablet 50 mg PO BID #60 tabs 09/15/23 04/24/24 Rx umeclidinium 62.5 mcg/actuation 1 inh inhalation DAILY #30 ea 09/15/23 04/24/24 Rx blister powder for inhalation apixaban 2.5 mg tablet (Eliquis) 2.5 mg PO BID #60 tabs 04/14/24 04/24/24 Rx lactulose 10 gram/15 mL (15 mL) 30 g (45 mL) PO BID 30 days #2,700 04/17/24 04/24/24 Rx oral solution mL linezolid 600 mg tablet 600 mg PO BID #14 tabs 04/17/24 04/24/24 Rx olanzapine 2.5 mg tablet 2.5 mg PO HS #3 tabs 04/17/24 04/24/24 Rx pregabalin 50 mg capsule 75 mg (1.5 x 50 mg) PO Q8 #90 caps 04/17/24 04/24/24 Rx trazodone 50 mg tablet 25 mg (1/2 x 50 mg) PO HS #30 tabs 04/17/24 04/24/24 Rx trolamine salicylate 10 % topical 1 applic EXT TID PRN muscle pain 04/17/24 04/24/24 Rx cream (Myoflex) #10 grams Past Med/Surg History Problem List (Updated 04/24/24 @ 19:15 by Julio Webb) Hx MRSA infection (Acute) Leukocytosis (Acute) Failure of outpatient treatment (Acute) Acute UTI (Acute) Acute confusion (Acute) Ureteral stent present Delirium Hospice care (Acute) Failure of outpatient treatment (Acute) Hydronephrosis (Acute) Acute UTI (Acute) Altered mental status (Acute) Hydroureteronephrosis Choledocholithiasis Urinary tract obstruction by kidney stone Nephrolithiasis Abnormal CBC UTI (urinary tract infection) (Acute) Chronic pain No pertinent past surgical history COVID-19 (Acute) weaned off oxygen GERD (gastroesophageal reflux disease) Hyperlipidemia Insomnia Rheumatoid arthritis Type 2 diabetes mellitus with diabetic polyneuropathy Major depressive disorder Vascular dementia Constipation Acute osteomyelitis of toe (Acute) Medical History History of deep venous thrombosis (DVT) of distal vein of right lower extremity Anticoagulated History of CVA (cerebrovascular accident) Hypertension Diabetes Social History Smoking Status: Former smoker Tobacco Type: Cigarettes Second Hand Exposure: No; Do You Dip or Chew Tobacco: No; Hx Alcohol Use: No Hx Substance Use: No Preferred Language: Cuban Communication Ability: Effective Manager Housekeeping Required: No Beliefs That Will Affect Care: None Current Living Situation: Family Current Living Situation Comment: yesenia Feels Safe at Home: Yes Assistive Devices: Hospital Bed and Mechanical Lift Review of Systems Review of Systems: Per HPI. Physical Exam Physical Exam: General: Alert, oriented to self only, no acute distress but sweaty Cardio: Regular rate and rhythm, Resp: Lungs clear to auscultation b/l, no wheezes or rhonchi, GI: Soft with some epigastric tenderness, nondistended, bowel sounds active : Ramirez in place draining yellow urine Skin: Warm, pink, dry, Results & Data Results & Data Vital Signs (Past 12 Hours) Vital Signs Temp Pulse Pulse Resp BP BP Pulse Ox 04/24/24 14:14 75 166/85 H 04/24/24 13:40 99 H 175/97 H 04/24/24 13:39 98 H 17 175/97 H 99 04/24/24 13:13 36.4 C L 96 H 19 138/114 H 98 04/24/24 12:06 99 04/24/24 11:51 99 H 04/24/24 11:28 36.9 C 98 H 19 157/96 H 96 O2 Del Method 04/24/24 14:14 04/24/24 13:40 04/24/24 13:39 04/24/24 13:13 Room Air 04/24/24 12:06 Room Air 04/24/24 11:51 04/24/24 11:28 Room Air Supervising Physician Co-Signing Physician Notes Patient seen and examined, chart reviewed, case discussed with Dr. Coffman and I agree with the assessment and plan as above except as otherwise noted Labs and images reviewed 83yo F who presents with confusion and suspected UTI. Recently had a urinary stent placed and was tx with linezolid which she completed today, but with increasing confusion and L sided flank pain in the last few days. +Mild abdominal and epigastric pain. Today red, flushed and confused --> presented to ER with family. Baseline mentation has been declining, but normally is conversational and is very off her baseline currently per family. On exam she does have diffuse abdominal pain and some left-sided CVA tenderness, but abdomen is soft and without rebound/guarding. Given abdominal pain CT is reasonable, especially to evaluate for abscess given history of MRSA infection with indwelling stent. Subsequently CT shows pyelonephritis but no abscess. Will admit with expanded gram-negative coverage with Rocephin and continue MRSA coverage with daptomycin. Urology consulted for evaluation for stent exchange. Agree with above. Resident Activity Tracking Resident Involvement: Resident Care Provided Care Provided: Adult Hospital Medicine (8) UTI (urinary tract infection) Urinary tract infection type: site unspecified
--- NOTE | 2024-04-24 15:22 | Electrocardiogram Report ---
Test Reason : Blood Pressure : */* mmHG Vent. Rate : 88 BPM Atrial Rate : 88 BPM P-R Int : 130 ms QRS Dur : 64 ms QT Int : 348 ms P-R-T Axes : 21 -6 8 degrees QTcB Int : 421 ms Poor data quality, interpretation may be adversely affected Normal sinus rhythm Possible Old Inferior infarct (cited on or before 12-Sep-2023) Abnormal ECG When compared with ECG of 08-Apr-2024 22:06, No significant change Confirmed by Jethro Dos Santos ([id number]) on 04/24/2024 3:21:53 PM Referred By: REFERRED SELF Confirmed By: Jethro Dos Santos
--- NOTE | 2024-04-24 15:24 | Urology Consultation ---
Date of Consultation April 24, 2024 Assessment & Plan (1) Acute UTI: (2) Ureteral stent present: (3) Altered mental status: Plan 83yo female who is s/p right ureteral stent exchange on 04/09/24 who presented to the ED today with confusion and hypertension and is admitted with concern for infection. Afebrile and hemodynamically stable Labs show mild leukocytosis and normal renal function Urine culture pending. Patient recently finished a course of linezolid Ramirez intact and draining yellow urine, continue to monitor KUB reviewed and shows a right ureteral stent in place No intervention warranted at this time Continue antibiotics and tailor per culture sensitivities Maintain Ramirez catheter CT abdomen pelvis is pending Continue supportive care Urology will follow, please call with any questions/concerns Plan reviewed with Dr. Tomas, on-call urologist. History of Present Illness History of Present Illness 83 year old female who presented to the emergency room today for evaluation due to confusion and hypertension. Patient was recently admitted with Staph aureus MRSA UTI and right hydronephrosis. She underwent right ureteral stent exchange on 04/09/[address] Anderson (prior stent had been in place since August 2023). She just finished a course of linezolid prior to her admission. On arrival she was afebrile and hypertensive but otherwise stable. Labs were showing a mild leukocytosis of 11.18, hemoglobin 11.4, and normal renal function. Urinalysis with 3+ blood, 3+ LE, 3+ bacteria, negative nitrite. KUB demonstrated a right ureteral stent in place. Urine culture collected and pending. She was started on Rocephin and daptomycin. Patient was admitted to medicine service. Patient was seen at bedside in the ED. She was awake and resting in bed on arrival. No acute distress. Oriented to self only. Ramirez intact draining clear yellow urine Allergies Allergy/AdvReac Type Severity Reaction Status Date / Time ibuprofen Allergy Unknown Unknown Unverified 09/04/23 17:30 Iodinated Contrast Media Allergy Unknown Unknown Unverified 09/04/23 17:30 iodine Allergy Unknown Unknown Unverified 09/04/23 17:30 metformin Allergy Unknown Unknown Unverified 09/04/23 17:30 naproxen Allergy Unknown Unknown Unverified 09/04/23 17:30 Penicillins Allergy Unknown Unknown Unverified 04/24/24 15:54 pregabalin Allergy Unknown Unknown Unverified 09/04/23 17:30 Home Medications Medication Instructions Recorded Confirmed Type acetaminophen 325 mg tablet 650 mg (2 x 325 mg) PO Q6 PRN mild 09/15/23 04/24/24 Rx pain scale 1-10 #1 tab albuterol sulfate 90 mcg/actuation 2 inh inhalation Q4H PRN shortness 09/15/23 04/24/24 Rx breath activated powder inhaler of breath or wheezing #1 ea atorvastatin 10 mg tablet 10 mg PO DAILY #30 tabs 09/15/23 04/24/24 Rx citalopram 10 mg tablet 10 mg PO DAILY #30 tabs 09/15/23 04/24/24 Rx cyanocobalamin (vitamin B-12) 500 1,000 mcg (2 x 500 mcg) PO QAM B12 09/15/23 04/24/24 Rx mcg tablet deficiency #0 tabs diclofenac sodium 1 % topical gel 1 ea topical TID #100 grams 09/15/23 04/24/24 Rx ferrous sulfate 325 mg (65 mg 325 mg PO DAILY #30 tabs 09/15/23 04/24/24 Rx iron) tablet (FeroSul) fluticasone 113 mcg-salmeterol 14 1 inh inhalation BID #1 ea 09/15/23 04/24/24 Rx mcg/actuation breath activated powdr lorazepam 1 mg tablet 0.5 mg (1/2 x 1 mg) PO DAILY #14 09/15/23 04/24/24 Rx tabs magnesium chloride 64 mg 128 mg (2 x 64 mg magnesium) PO 09/15/23 04/24/24 Rx (magnesium chloride) tablet DAILY #1 tab melatonin 5 mg tablet 5 mg PO HS #1 tab 09/15/23 04/24/24 Rx pantoprazole 40 mg tablet,delayed 40 mg PO DAILY #30 tabs 09/15/23 04/24/24 Rx release polyethylene glycol 3350 17 gram 17 g PO BID #100 ea 09/15/23 04/24/24 Rx oral powder packet (Miralax) sennosides 8.6 mg tablet (Senokot) 17.2 mg (2 x 8.6 mg) PO QAM #0 tabs 09/15/23 04/24/24 Rx tramadol 50 mg tablet 50 mg PO BID #60 tabs 09/15/23 04/24/24 Rx umeclidinium 62.5 mcg/actuation 1 inh inhalation DAILY #30 ea 09/15/23 04/24/24 Rx blister powder for inhalation apixaban 2.5 mg tablet (Eliquis) 2.5 mg PO BID #60 tabs 04/14/24 04/24/24 Rx lactulose 10 gram/15 mL (15 mL) 30 g (45 mL) PO BID 30 days #2,700 04/17/24 04/24/24 Rx oral solution mL linezolid 600 mg tablet 600 mg PO BID #14 tabs 04/17/24 04/24/24 Rx olanzapine 2.5 mg tablet 2.5 mg PO HS #3 tabs 04/17/24 04/24/24 Rx pregabalin 50 mg capsule 75 mg (1.5 x 50 mg) PO Q8 #90 caps 04/17/24 04/24/24 Rx trazodone 50 mg tablet 25 mg (1/2 x 50 mg) PO HS #30 tabs 04/17/24 04/24/24 Rx trolamine salicylate 10 % topical 1 applic EXT TID PRN muscle pain 04/17/24 04/24/24 Rx cream (Myoflex) #10 grams Patient History Medical History History of deep venous thrombosis (DVT) of distal vein of right lower extremity Anticoagulated History of CVA (cerebrovascular accident) Hypertension Diabetes Social History Smoking Status: Former smoker Tobacco Type: Cigarettes Second Hand Exposure: No; Do You Dip or Chew Tobacco: No; Hx Alcohol Use: No Hx Substance Use: No Preferred Language: South Korean Communication Ability: Effective Digital Printer Required: No Beliefs That Will Affect Care: None Current Living Situation: Family Current Living Situation Comment: yesenia Feels Safe at Home: Yes Assistive Devices: Hospital Bed and Mechanical Lift Review of Systems Review of Systems: All systems reviewed & are unremarkable except as noted in HPI & below Physical Exam Constitutional: no acute distress Respiratory: no respiratory distress and no labored breathing Musculoskeletal: Head/Neck/Chest: normocephalic Skin: No visible rashes or lesions to exposed skin areas Neurologic: awake Psychiatric: Orientation: alert and oriented to person Genitourinary: Ramirez intact Results & Data Vital Signs (Past 12 Hours) Vital Signs Temp Pulse Pulse Resp BP BP Pulse Ox 04/24/24 15:16 81 04/24/24 14:14 75 166/85 H 04/24/24 13:40 99 H 175/97 H 04/24/24 13:39 98 H 17 175/97 H 99 04/24/24 13:13 36.4 C L 96 H 19 138/114 H 98 04/24/24 12:06 99 04/24/24 11:51 99 H 04/24/24 11:28 36.9 C 98 H 19 157/96 H 96 O2 Del Method 04/24/24 15:16 04/24/24 14:14 04/24/24 13:40 04/24/24 13:39 04/24/24 13:13 Room Air 04/24/24 12:06 Room Air 04/24/24 11:51 04/24/24 11:28 Room Air PG Care Time/CCT Total # of Minutes Spent Total Time Spent with Patient: Total time spent is greater than 50% in coordination of care (as documented) at patient's floor/unit and/or counseling patient: Coding Level of Care Code 43250 INT INP/OBS CARE 2/55MIN Diagnoses Acute UTI N39.0 Ureteral stent present Z96.0 Altered mental status R40.0 Altered mental status type: somnolence (3) Altered mental status Altered mental status type: somnolence Qualified Code(s): R40.0 - Somnolence
[2024-04-24] MEDS: diphenhydrAMINE 50 MG/ML VIAL IV STA (15:56)
[2024-04-24] MEDS: methylPREDNISolone 125 MG/2 ML VIAL IV STA (15:56)
[2024-04-24] MEDS: OPTIRAY 320 100ml IV ONE (16:37)
--- NOTE | 2024-04-24 16:55 | CT Scan Report ---
EXAM: CT Abdomen and Pelvis With Intravenous Contrast INDICATION: Abdominal and back pain. TECHNIQUE: Axial computed tomography images of the abdomen and pelvis with intravenous contrast. Sagittal and coronal reformatted images were created and reviewed. This CT exam was performed using one or more of the following dose reduction techniques: automated exposure control, adjustment of the mA and/or kV according to patient size, and/or use of iterative reconstruction technique. CONTRAST: 93ml of Optiray 320 was administered intravenously. COMPARISON: 04/08/2024 FINDINGS: Limitations: None. Lung bases: There is new atelectasis in the right lung base. Pleural space: No visualized pleural effusion or pneumothorax. Heart: No abnormality noted. Mediastinum: No abnormality noted. ABDOMEN: Liver: No abnormality noted. Gallbladder and bile ducts: Stable extensive pneumobilia and mild Intermatic biliary dilatation. Smooth hepatic contour. No visible mass. The gallbladder is surgically absent. Air noted in the common bile duct. No fluid collection in the cholecystectomy bed. Pancreas: Homogeneous enhancement. No mass, inflammation or ductal dilation. Spleen: No significant abnormality noted. Adrenals: No significant abnormality noted. Kidneys and ureters: There is heterogeneous diminished enhancement of the right kidney. There is a right ureteral stent in place with decreased hydronephrosis now mild in degree. Distal loop of the stent is in the bladder and proximal loop in the renal pelvis. No urinary stone identified. Small cortical hypodensity in the left kidney likely a cyst. No urinary gas. Stomach and bowel: Moderate amounts of stool throughout the colon with extensive left diverticulosis. No obstruction or diverticulitis. PELVIS: Appendix: Well seen and appears normal. Bladder: The bladder is collapsed by catheter and is likely inflamed. No visible stone. Reproductive: Hysterectomy. ABDOMEN and PELVIS: Intraperitoneal space: No free air. No significant fluid collection. Bones/joints: Degenerative changes noted throughout the spine. No acute osseous abnormality seen. Soft tissues: Rectus diastases. There is a small fat-containing left inguinal hernia. Vasculature: No abdominal aortic aneurysm. Lymph nodes: No pathologically enlarged lymph nodes. IMPRESSION: 1. Right pyelonephritis and cystitis. Ureteral stent in good position with decreased hydronephrosis. 2. Moderate colonic stool and diverticulosis. No obstruction or diverticulitis. ACT 112: Negative or not required by law. Electronically signed by Ruthann Farah 04-24-2024 4:54 PM
[2024-04-24] MEDS: cefTRIAXone SODIUM 1,000 MG/50 ML BAG IV SCH (17:02)
[2024-04-24] MEDS ORDERED: ALBUTEROL HFA 8 GM INHALER INH PRN (19:18)
[2024-04-24] MEDS: ACETAMINOPHEN 325 MG TAB PO PRN (20:38)
[2024-04-24] MEDS: amLODIPine BESYLATE 5 MG TAB PO PRN (20:38)
[2024-04-24] MEDS: APIXABAN 2.5 MG TAB PO SCH (20:38)
[2024-04-24] MEDS: PANTOprazole 40 MG TAB PO SCH (20:38)
[2024-04-24] MEDS: MELATONIN 3 MG TAB PO PRN (20:38)
[2024-04-24] MEDS: POLYETHYLENE (MIRALAX) 17 GM PACK PO SCH (20:39)
--- OUTSIDE RECORDS SUMMARY | 2024-04-25 00:09 | External Medical Summary | Summary of Care ---
Author Name Unknown Organization [facility] Address [address] [place] [address] Phone [phone] Care Team Providers Care Ladle Operator Name Role Phone Anel Lolis Garzon DO Primary Care Provider [phone]- [phone] Reason for Visit * Reason Onset Date Comments FYI 04/10/2024 Encounter Details Date Type Department Care Team (Late st Contact Info) Description 04/10/2024 Telephone Access Center, [place] [address] [facility] *DO NOT REMOVE THIS DEPARTMENT* [place] [address] Services, Scheduling [address] [place] [address] Allergies Active Allergy Reactions Criticality Noted Date [...] as of this encounter (statuses as of 04/11/2024) Medications acetaminophen (TYLENOL) 325 MG Tablet Take [...] 2022. 30 Tablet 3 02/26/20 Active Nystatin 956602 UNIT/GM External Powder (Nystop) Apply topically to [...] as of this encounter (statuses as of 04/11/2024) Active Problems Problem Noted Date Diagnosed Date [...] as of this encounter (statuses as of 04/11/2024) Social History Tobacco Use Types Packs/Day Years [...] encounter Miscellaneous Notes * Telephone Encounter - Elizabeth Negro OSA - 04/11/2024 11:30 AM EST Pt is bed bound Viktoria from [facility] is wondering if we would allow a video visit * Telephone Encounter - Lolis Tam DO - 04/10/2024 6:02 PM EST Patient needs to have appointment in office, has not been seen since 2021 * Telephone Encounter - Sejal Samson OSA - 04/10/2024 1:57 PM EST Caller: Shanta [facility] Reason for Call: Calling to [facility] [...] ASTHMA-ADULT 04/09/2022 COVID-19 Vaccine ( season) 2024 03/26/2021, 06/15/2020, 05/25/2020 Influenza Vaccine (FLU shot) (#1) [...] Advance Directives occurred with: Patient Care Teams Ladle Operator Relationship Specialty Start Date End Date Lolis Tam DO [address] [facility] [place] [id number] PCP - General Family Medicine 08/13/21 documented as of this encounter
--- OUTSIDE RECORDS SUMMARY | 2024-04-25 00:09 | External Medical Summary | Summary of Care ---
Author Name Unknown Organization [facility] Address [address] [place] [address] Phone [phone] Care Team Providers Care Hand Paint Mixer Name Role Phone Anel Lolis Garzon DO Primary Care Provider [phone]- [phone] Reason for Visit * Reason Onset Date Comments FYI 04/10/2024 Encounter Details Date Type Department Care Team (Late st Contact Info) Description 04/10/2024 Telephone Access Center, [place] [address] [facility] *DO NOT REMOVE THIS DEPARTMENT* [place] [address] Services, Scheduling [address] [place] [address] Allergies Active Allergy Reactions Criticality Noted Date [...] 2022. 30 Tablet 3 02/26/20 Active Nystatin 693380 UNIT/GM External Powder (Nystop) Apply topically to [...] Encounter - Alma Rosa Jay OSA - 04/11/2024 2:16 PM EST Pt is still admitted at [facility]. * Telephone Encounter - Lolis Tam DO - 04/11/2024 1:26 PM EST Ok for video I guess * Telephone Encounter - Elizabeth Negro OSA - 04/11/2024 11:30 AM EST Pt is bed bound Viktoria from [facility] is wondering if we would allow a video visit * Telephone Encounter - Lolis Tam DO - 04/10/2024 6:02 PM EST Patient needs to have appointment in office, has not been seen since 2021 * Telephone Encounter - Sejal Samson OSA - 04/10/2024 1:57 PM EST Caller: Shanta [facility] Reason for Call: Calling to advise that pt went to the [facility] over the weekend and signed out of [...] 04/09/2022 COVID-19 Vaccine ( - season) 2024 03/26/2021, 06/15/2020, 05/25/2020 Influenza Vaccine [...] Advance Directives occurred with: Patient Care Teams Hand Paint Mixer Relationship Specialty Start Date End Date Lolis Tam DO [address] [facility] [place] [address] PCP - General Family Medicine 08/13/21 documented as of this encounter
--- OUTSIDE RECORDS SUMMARY | 2024-04-25 00:09 | External Medical Summary | Summary of Care ---
Author Name Unknown Organization [facility] Address [address] [place] [address] Phone [phone] Care Team Providers Care Mail Officer Name Role Phone Anel Lolis Garzon DO Primary Care Provider [phone]- [phone] Reason for Visit * Reason Onset Date Comments FYI 04/10/2024 Encounter Details Date Type Department Care Team (Late st Contact Info) Description 04/10/2024 Telephone Access Center, [place] [address] [facility] *DO NOT REMOVE THIS DEPARTMENT* [place] [address] Services, Scheduling [address] [place] [address] Allergies Active Allergy Reactions Criticality Noted Date [...] 2022. 30 Tablet 3 02/26/20 Active Nystatin 194997 UNIT/GM External Powder (Nystop) Apply topically to [...] EST Pt is bed bound Viktoria from [facility] is wondering if we would allow a video visit * Telephone Encounter - Lolis Tam DO - 04/10/2024 6:02 PM EST Patient needs to have appointment in office, has not been seen since 2021 * Telephone Encounter - Sejal Samson OSA - 04/10/2024 1:57 PM EST Caller: Shanta [facility] Reason for Call: Calling to advise that pt went to the [facility] over the weekend and signed out of [...] Advance Directives occurred with: Patient Care Teams Mail Officer Relationship Specialty Start Date End Date Lolis Tam DO [address] [facility] [place] [id number] PCP - General Family Medicine 08/13/21 documented as of this encounter
--- OUTSIDE RECORDS SUMMARY | 2024-04-25 00:09 | External Medical Summary | Summary of Care ---
Author Name Unknown Organization [facility] Address [address] [place] [address] Phone [phone] Care Team Providers Care Spice Miller Name Role Phone Anel Lolis Garzon DO Primary Care Provider [phone]- [phone] Reason for Visit * Reason Onset Date Comments FYI 04/10/2024 Encounter Details Date Type Department Care Team (Late st Contact Info) Description 04/10/2024 Telephone Access Center, [place] [address] [facility] *DO NOT REMOVE THIS DEPARTMENT* [place] [address] Services, Scheduling [address] [place] [address] Allergies Active Allergy Reactions Criticality Noted Date [...] 2022. 30 Tablet 3 02/26/20 Active Nystatin 508193 UNIT/GM External Powder (Nystop) Apply topically to [...] EST Pt is bed bound Viktoria from [facility] is wondering if we would allow a [...] to advise that pt went to the [facility] over the weekend and signed out [...] Advance Directives occurred with: Patient Care Teams Spice Miller Relationship Specialty Start Date End Date Lolis Tam DO [address] [facility] [place] [id number] PCP - General Family Medicine 08/13/21 documented as of this encounter
[2024-04-25] MEDS: SENNA 8.6 MG TAB PO SCH (08:54)
[2024-04-25] MEDS: CITALOPRAM 20 MG TAB PO SCH (08:55)
[2024-04-25] MEDS: FLUTICASONE/VILANTEROL 100/25MCG 14 PUFFS/INHALER INH SCH (08:55)
[2024-04-25 09:28] LABS: Hematocrit (blood only) 35.4 % (37.0-47.0); Hemoglobin 11.2 g/dl (12.0-16.0); Mean Corpuscular Hemoglobin 25.3 pg (25.0-34.0); Mean Corpuscular Hgb Conc 31.6 g/dL (32.0-36.0); Mean Corpuscular Volume 79.9 fL (80.0-100.0); Mean Platelet Volume 10.3 fL (9.4-12.4); Platelet Count 243 K/uL (130-400); RDW Coefficient of Variation 16.4 % (11.5-14.5); RDW Standard Deviation 47.8 fL (36.4-46.3); Red Blood Count 4.43 M/uL (4.20-5.40); White Blood Count 7.54 K/ul (4.8-10.8)
[2024-04-25 09:33] LABS: BUN Creatinine Ratio 38.7 (10-20); Calcium 9.8 mg/dl (8.6-10.3); Creatinine Clr Calc Pharmacy 72.4 ml/min; Potassium 4.1 mmol/L (3.5-5.1)
[2024-04-25 10:11] LABS: Basophils # (auto) 0.01 K/uL (0.00-0.20); Basophils % (auto) 0.1 %; Immature Granulocytes # (auto) 0.01 K/uL (0.01-0.20); Immature Granulocytes % (auto) 0.1 %; Lymphocytes # (auto) 4.54 K/uL (1.20-3.40); Lymphocytes % (auto) 60.2 %; Monocytes # (auto) 0.09 K/uL (0.11-0.59); Monocytes % (auto) 1.2 %; Neutrophils # (auto) 2.89 K/uL (1.40-6.50); Neutrophils % (auto) 38.4 %; Smudge Cells Present
--- NOTE | 2024-04-25 11:16 | Urology Progress Note ---
Date of Service April 25, 2024 Assessment & Plan (1) Acute UTI: (2) Ureteral stent present: Plan 83yo female who is s/p right ureteral stent exchange on 04/09/24 who presented to the ED today with confusion and hypertension and is admitted with concern for infection Afebrile with stable vitals at present Labs show no leukocytosis and normal renal function Urine culture pending. Patient recently finished a course of linezolid Ramirez intact and draining yellow urine, continue to monitor KUB reviewed and shows a right ureteral stent in place CT A/P reviewed and shows right-sided pyelonephritis with right ureteral stent in good position and decreased hydronephrosis No acute intervention warranted Continue antibiotics and tailor per culture sensitivities Continue supportive care Maintain Ramirez catheter Will arrange outpatient follow-up with our service Urology will follow peripherally. Please call with any questions/concerns. Admission and Anticipated Discharge Date Admission Date: April 24, 2024 Subjective Pt seen at bedside today Asleep on arrival, awakened to name No acute distress Ramirez draining clear yellow urine Review of Systems Constitutional: as per Subjective / HPI Genitourinary: as per Subjective / HPI Physical Exam Constitutional: no acute distress Respiratory: no respiratory distress and no labored breathing Neurologic: awake Psychiatric: Orientation: alert and oriented to person Genitourinary: Ramirez intact Results & Data Vital Signs (Past 12 Hours) Vital Signs Temp Pulse Resp BP Pulse Ox O2 Del Method 04/25/24 07:28 36.8 C 89 18 134/77 95 Room Air PG Care Time/CCT Total # of Minutes Spent Total Time Spent with Patient: Total time spent is greater than 50% in coordination of care (as documented) at patient's floor/unit and/or counseling patient: Coding Level of Care Code 91981 SUB INP/OBS CARE 2/35MIN Diagnoses Acute UTI N39.0 Ureteral stent present Z96.0
--- NOTE | 2024-04-25 14:24 | Hospitalist Progress Note ---
Date of Service April 25, 2024 Assessment & Plan (1) Acute confusion: (2) Ureteral stent present: Plan Ms. Oro is an 83 yo female with a past medical history of delirium, recent hydronephrosis with stent placement, COPD, major depressive disorder, CLL, and constipation who presents to the hospital on 04/24 for worsening delirium and illness symptoms. Patient with complicated UTI and recently treated with linezolid. Daughter agreeable to palliative care for chronic condition and management of symptoms and idea of resources. Daughter quite tearful and reports patient on hospice previously but was "horrified by the treatment." #Complicated UTI #Recent stent placement - urine indicative of UTI, just finished course of linezolid prior to admission - had recent R ureteral stent replaced Dr Anderson 04/09; urology consulted - Urology evaluated: stable at this time continue conservative mgmt, stent in place -continue ng catheter -Cultures with karina, will treat given presentation -Fluconazole 200mg daily for 10 days #Acute metabolic encephalopathy, iso infection #Vascular dementia - daughter notes recent mental status changes with recent UTI and hospitalization - suspect this is due to polypharmacy with multiple agents that cause sedation (trazodone, tramadol, ativan, olanzapine) vs UTI vs recent hospital stay - last TSH wnl 2 weeks ago - Spoke to daughter who wishes to continue with home health #Constipation - chronic, no BM in days - will do miralax BID + senokot but may need to escalate #GERD - pantoprazole home dose once daily increased to BID given epigastric tenderness and daughter notes hx bad reflux #HTN - asymptomatic, permissible for now #Depression - continue home citalopram #HLD - holding home atorvastatin while on daptomycin #COPD - continue home inhalers #Hx DVT - on eliquis at home Holding home: Tramadol, trazodone, olanzapine, lorazepam as these may be contributing to her AMS. Holding home lyrica as this is now on her allergy list. Resume Diet: resumed diet VTE prophylaxis: home eliquis Admission and Anticipated Discharge Date Admission Date: April 24, 2024 Subjective NAEO Alert to self No concerns--but repeats "cover [her] feet" Eating well during lunch Physical Exam Constitutional: confused frail woman, tremulous, eating lunch well Respiratory: diminshed 2/2 effort Cardiovascular: RRR, no murmur, no edema Results & Data Results & Data Vital Signs (Past 12 Hours) Vital Signs Temp Pulse Resp BP Pulse Ox O2 Del Method 04/25/24 07:28 36.8 C 89 18 134/77 95 Room Air Laboratory Results Short CBC 04/25/24 Range/Units 08:38 WBC 7.54 (4.8-10.8) K/ul Hgb 11.2 L (12.0-16.0) g/dl Hct 35.4 L (37.0-47.0) % Plt Count 243 (130-400) K/uL BMP 04/25/24 08:38 Sodium 138 Potassium 4.1 Chloride 103 Carbon Dioxide 25 BUN 24 H Creatinine 0.62 Glucose 151 H Calcium 9.8 Medications Administered Home Medications Medication Instructions Recorded Confirmed Last Taken acetaminophen 325 mg tablet 650 mg (2 x 325 mg) PO Q6 PRN mild 09/15/23 04/24/24 Unknown pain scale 1-10 #1 tab albuterol sulfate 90 mcg/actuation 2 inh inhalation Q4H PRN shortness 09/15/23 04/24/24 Unknown breath activated powder inhaler of breath or wheezing #1 ea atorvastatin 10 mg tablet 10 mg PO DAILY #30 tabs 09/15/23 04/24/24 Unknown citalopram 10 mg tablet 10 mg PO DAILY #30 tabs 09/15/23 04/24/24 Unknown cyanocobalamin (vitamin B-12) 500 1,000 mcg (2 x 500 mcg) PO QAM B12 09/15/23 04/24/24 Unknown mcg tablet deficiency #0 tabs diclofenac sodium 1 % topical gel 1 ea topical TID #100 grams 09/15/23 04/24/24 Unknown ferrous sulfate 325 mg (65 mg 325 mg PO DAILY #30 tabs 09/15/23 04/24/24 Unknown iron) tablet (FeroSul) fluticasone 113 mcg-salmeterol 14 1 inh inhalation BID #1 ea 09/15/23 04/24/24 Unknown mcg/actuation breath activated powdr lorazepam 1 mg tablet 0.5 mg (1/2 x 1 mg) PO DAILY #14 09/15/23 04/24/24 Unknown tabs magnesium chloride 64 mg 128 mg (2 x 64 mg magnesium) PO 09/15/23 04/24/24 Unknown (magnesium chloride) tablet DAILY #1 tab melatonin 5 mg tablet 5 mg PO HS #1 tab 09/15/23 04/24/24 Unknown pantoprazole 40 mg tablet,delayed 40 mg PO DAILY #30 tabs 09/15/23 04/24/24 Unknown release polyethylene glycol 3350 17 gram 17 g PO BID #100 ea 09/15/23 04/24/24 Unknown oral powder packet (Miralax) sennosides 8.6 mg tablet (Senokot) 17.2 mg (2 x 8.6 mg) PO QAM #0 tabs 09/15/23 04/24/24 Unknown tramadol 50 mg tablet 50 mg PO BID #60 tabs 09/15/23 04/24/24 Unknown umeclidinium 62.5 mcg/actuation 1 inh inhalation DAILY #30 ea 09/15/23 04/24/24 Unknown blister powder for inhalation apixaban 2.5 mg tablet (Eliquis) 2.5 mg PO BID #60 tabs 04/14/24 04/24/24 Unknown lactulose 10 gram/15 mL (15 mL) 30 g (45 mL) PO BID 30 days #2,700 04/17/24 04/24/24 Unknown oral solution mL linezolid 600 mg tablet 600 mg PO BID #14 tabs 04/17/24 04/24/24 Unknown olanzapine 2.5 mg tablet 2.5 mg PO HS #3 tabs 04/17/24 04/24/24 Unknown pregabalin 50 mg capsule 75 mg (1.5 x 50 mg) PO Q8 #90 caps 04/17/24 04/24/24 Unknown trazodone 50 mg tablet 25 mg (1/2 x 50 mg) PO HS #30 tabs 04/17/24 04/24/24 Unknown trolamine salicylate 10 % topical 1 applic EXT TID PRN muscle pain 04/17/24 04/24/24 Unknown cream (Myoflex) #10 grams Active Medications Generic Name Dose Route Start Last Admin Trade Name Freq PRN Reason Stop Dose Admin Acetaminophen 650 mg 04/24/24 19:16 04/24/24 20:38 Acetaminophen 325 Mg Tab PO 05/24/24 19:15 650 mg Q4H PRN Administration pain/fever Amlodipine Besylate 5 mg 04/24/24 19:16 04/24/24 20:38 Amlodipine Besylate 5 Mg Tab PO 05/24/24 19:15 5 mg ONE PRN Administration HTN >180/110 Apixaban 2.5 mg 04/24/24 21:00 04/25/24 08:55 Apixaban 2.5 Mg Tab PO 05/24/24 20:59 2.5 mg BID DAWNA Administration Citalopram Hydrobromide 10 mg 04/25/24 09:00 04/25/24 08:55 Citalopram 20 Mg Tab PO 05/25/24 08:59 10 mg DAILY DAWNA Administration Fluticasone/Vilanterol 1 puffs 04/25/24 09:00 04/25/24 08:55 Fluticasone/Vilanterol 100/25mcg 14 Puffs/Inhaler INH 05/25/24 08:59 1 puffs DAILY DAWNA Administration Daptomycin 325 mg/ Syringe 6.5 mls @ 3.25 mls/min 04/24/24 13:30 04/25/24 13:33 IV 04/29/24 13:29 3.25 mls/min Q24H DAWNA Administration Protocol Ceftriaxone Sodium 1,000 mg in 50 mls @ 100 mls/hr 04/24/24 16:00 04/24/24 17:33 Rocephin IV 05/04/24 15:59 Infused Q24H DAWNA Infusion Melatonin 6 mg 04/24/24 19:18 04/24/24 20:38 Melatonin 3 Mg Tab PO 05/24/24 19:17 6 mg HS PRN Administration insomnia Pantoprazole Sodium 40 mg 04/24/24 21:00 04/25/24 08:55 Pantoprazole 40 Mg Tab PO 05/24/24 20:59 40 mg BID DAWNA Administration Polyethylene Glycol 17 gm 04/24/24 21:00 04/25/24 08:54 Polyethylene (Miralax) 17 Gm Pack PO 05/24/24 20:59 17 gm BID DAWNA Administration Sennosides 17.2 mg 04/25/24 09:00 04/25/24 08:54 Senna 8.6 Mg Tab PO 05/25/24 08:59 17.2 mg QAM DAWNA Administration
[2024-04-25] MEDS: DICLOFENAC SOD 1% GEL 100 GM TUBE EXT SCH (17:27)
[2024-04-25] MEDS: FLUCONAZOLE 100 MG TAB PO SCH (20:01)
[2024-04-26 07:02] LABS: Hematocrit (blood only) 34.4 % (37.0-47.0); Hemoglobin 10.7 g/dl (12.0-16.0); Mean Corpuscular Hemoglobin 25.7 pg (25.0-34.0); Mean Corpuscular Hgb Conc 31.1 g/dL (32.0-36.0); Mean Corpuscular Volume 82.5 fL (80.0-100.0); Mean Platelet Volume 10.1 fL (9.4-12.4); Platelet Count 190 K/uL (130-400); RDW Coefficient of Variation 16.8 % (11.5-14.5); RDW Standard Deviation 50.2 fL (36.4-46.3); Red Blood Count 4.17 M/uL (4.20-5.40); White Blood Count 9.73 K/ul (4.8-10.8)
[2024-04-26 07:30] LABS: Estimated Average Glucose 146 mg/dl; Hemoglobin A1C 6.7 % (4.5-5.6)
[2024-04-26 07:31] LABS: BUN Creatinine Ratio 53.4 (10-20); Calcium 9.5 mg/dl (8.6-10.3); Creatinine Clr Calc Pharmacy 61.5 ml/min; Magnesium 2.1 mg/dl (1.7-2.4); Phosphorus 3.8 mg/dl (2.5-4.9); Potassium 4.2 mmol/L (3.5-5.1)
[2024-04-26] MEDS: amLODIPine BESYLATE 5 MG TAB PO SCH (08:29)
[2024-04-26] MEDS: ADVANCED PROBIOTIC 625 MG CAPSULE PO SCH (09:48)
--- NOTE | 2024-04-26 14:08 | Palliative Care Consultation ---
Date of Consultation April 26, 2024 Assessment & Plan (1) Altered mental status: Altered mental status type: somnolence Qualified Code(s): R40.0 - Somnolence (2) Delirium: (3) Weakness generalized: (4) Advanced care planning/counseling discussion: 50 min total in ACP between face to face with pt x 25 min adn 25min tel call to daughter Anita. I met with Mrs. Oro at bedside and also spoke with her daughter/JENIFER Howard this morning and revisited pt this afternoon. Pt seems consistently inconsistent with me but dtr says this is more intact MS than prior to admission. Pt could not give me much history but was pleasant throughout the visit, albeit foggy/maybe a little confused. She insisted I remove her socks and says they hurt her feet. Five minutes later she demanded I remove her socks again and did not believe they were removed. I tied the socks to the foot of the bed to show her they were off and also to flag she is a fall risk. She refuses to wear them and says they hurt. She described what ?might be neuropathy but could not articulate much for me. She has some dysesthetic pain on left greater than right, with some heightened sensation but the linens were not additive to pain or discomfort. her dtr had mentioned it is neuropathy but cannot recall the meds pt was given for same. Dtr states experience with hospice was very bad, she does not want hospice again and sounds like they have burned a bridge/fractured trust with dtr. She was also disinclined for SNF but understood options may be limited and SNF might be the interim stop. I am unsure what services at home pt may qualify for but it is prob worth exploring with the dtr, because she did seem sincere in the wish to try and keep pt home. I called dtr back this afternoon and it went to voicemail. I left a message with my contact information and requested a call back. A low dose trial of gabapentin might be reasonable to try however with the recent mental status changes, i would like to avoid sedating meds for a few days. Anoth er option may be to just try Tylenol on a scheduled basis, maybe 500mg BID to TID and see how she tolerates? I am in clinic tomorrow and will return to inpatient on Wednesday. My partner, Osbaldo Kapadia, is around in house tomorrow if there is any urgent need/you can page Mee to see pt if needed. There are otherwise no acute needs at present and I will plan a routine follow up for Wednesday. Dtr was interested in outpatient pall med follow up, which for their local area will be Dr Danitza Nascimento. Of note, daughter says she does not have transportation and cannot come to hospital t see/visit with pt, so she would like daily calls/updates through the day for any changes etc. Daughter does not want new meds started without a conversation with her. She perceives pt was over medicated on hospice. I tried calling her this afternoon to discuss low dose trial of gabapentin but she was not available. Therefore for now would use low dose tylenol as recc above (5) Palliative care by specialist: (6) Failure of outpatient treatment: Plan As above Thank you for allowing us to participate in the ongoing care of this patient. Please page with any additional concerns. Keerthi Broussard DNP Director, Palliative Medicine History of Present Illness Reason for Consultation: goals of care Attending Physician: Ravindra Ferreira MD History of Present Illness 83yo female who was on home hospice but recently "fired from hospice" per daughter and presents with AMS, ?UTI, hx ureteral stents urology foollowing, supportive care, Iv Abtx underway pt seen alone at bedside dtr anita is POA but does not have transportation to hospital per my conversation with her earlier pt states her feet hurt, the sock are causing too much pain and she is perseverating on "can you take off my socks?' and "please take off my socks now." She then repeats the request even after the socks were removed. Allergies Allergy/AdvReac Type Severity Reaction Status Date / Time ibuprofen Allergy Unknown Unknown Unverified 09/04/23 17:30 Iodinated Contrast Media Allergy Unknown Unknown Unverified 09/04/23 17:30 iodine Allergy Unknown Unknown Unverified 09/04/23 17:30 metformin Allergy Unknown Unknown Unverified 09/04/23 17:30 naproxen Allergy Unknown Unknown Unverified 09/04/23 17:30 Penicillins Allergy Unknown Unknown Unverified 04/24/24 15:54 pregabalin Allergy Unknown Unknown Unverified 09/04/23 17:30 Home Medications Medication Instructions Recorded Confirmed Type acetaminophen 325 mg tablet 650 mg (2 x 325 mg) PO Q6 PRN mild 09/15/23 04/24/24 Rx pain scale 1-10 #1 tab albuterol sulfate 90 mcg/actuation 2 inh inhalation Q4H PRN shortness 09/15/23 04/24/24 Rx breath activated powder inhaler of breath or wheezing #1 ea atorvastatin 10 mg tablet 10 mg PO DAILY #30 tabs 09/15/23 04/24/24 Rx citalopram 10 mg tablet 10 mg PO DAILY #30 tabs 09/15/23 04/24/24 Rx cyanocobalamin (vitamin B-12) 500 1,000 mcg (2 x 500 mcg) PO QAM B12 09/15/23 04/24/24 Rx mcg tablet deficiency #0 tabs diclofenac sodium 1 % topical gel 1 ea topical TID #100 grams 09/15/23 04/24/24 Rx ferrous sulfate 325 mg (65 mg 325 mg PO DAILY #30 tabs 09/15/23 04/24/24 Rx iron) tablet (FeroSul) fluticasone 113 mcg-salmeterol 14 1 inh inhalation BID #1 ea 09/15/23 04/24/24 Rx mcg/actuation breath activated powdr lorazepam 1 mg tablet 0.5 mg (1/2 x 1 mg) PO DAILY #14 09/15/23 04/24/24 Rx tabs magnesium chloride 64 mg 128 mg (2 x 64 mg magnesium) PO 09/15/23 04/24/24 Rx (magnesium chloride) tablet DAILY #1 tab melatonin 5 mg tablet 5 mg PO HS #1 tab 09/15/23 04/24/24 Rx pantoprazole 40 mg tablet,delayed 40 mg PO DAILY #30 tabs 09/15/23 04/24/24 Rx release polyethylene glycol 3350 17 gram 17 g PO BID #100 ea 09/15/23 04/24/24 Rx oral powder packet (Miralax) sennosides 8.6 mg tablet (Senokot) 17.2 mg (2 x 8.6 mg) PO QAM #0 tabs 09/15/23 04/24/24 Rx tramadol 50 mg tablet 50 mg PO BID #60 tabs 09/15/23 04/24/24 Rx umeclidinium 62.5 mcg/actuation 1 inh inhalation DAILY #30 ea 09/15/23 04/24/24 Rx blister powder for inhalation apixaban 2.5 mg tablet (Eliquis) 2.5 mg PO BID #60 tabs 04/14/24 04/24/24 Rx lactulose 10 gram/15 mL (15 mL) 30 g (45 mL) PO BID 30 days #2,700 04/17/24 1 06/25/23 Rx oral solution mL linezolid 600 mg tablet 600 mg PO BID #14 tabs 04/17/24 04/24/24 Rx olanzapine 2.5 mg tablet 2.5 mg PO HS #3 tabs 04/17/24 04/24/24 Rx pregabalin 50 mg capsule 75 mg (1.5 x 50 mg) PO Q8 #90 caps 04/17/24 04/24/24 Rx trazodone 50 mg tablet 25 mg (1/2 x 50 mg) PO HS #30 tabs 04/17/24 04/24/24 Rx trolamine salicylate 10 % topical 1 applic EXT TID PRN muscle pain 04/17/24 04/24/24 Rx cream (Myoflex) #10 grams Patient History Medical History History of deep venous thrombosis (DVT) of distal vein of right lower extremity Anticoagulated History of CVA (cerebrovascular accident) Hypertension Diabetes Social History Smoking Status: Former smoker Tobacco Type: Cigarettes Second Hand Exposure: No; Do You Dip or Chew Tobacco: No; Hx Alcohol Use: No Hx Substance Use: No Preferred Language: Albanian Communication Ability: Impaired Communication Ability Comment: disoriented, difficulty holding items Nailing Machine Feeder Required: No Beliefs That Will Affect Care: None Current Living Situation: Family Current Living Situation Comment: yesenia Feels Safe at Home: Yes Assistive Devices: Hospital Bed, Mechanical Lift and Oxygen - Continuous Review of Systems Review of Systems: Unobtainable due to cognitive status Physical Exam Constitutional: + ill appearing, + thin, + altered menta l status, + physical limitations, + frail appearing and + disheveled Eyes: PERRL, conjunctivae normal, anicteric sclerae ENMT: Mouth: + dry oral mucous membranes and + poor dentition Neck: normal visual inspection and trachea midline; no tracheal deviation, no anterior neck swelling, neck nontender and no nuchal rigidity Respiratory: normal respiratory effort, + labored breathing, able to speak in complete sentences and symmetric chest movement; no respiratory distress Cardiovascular: Rate/Rhythm: regular rate and regular rhythm Gastrointestinal (Abdomen): Inspection/Auscultation: abdomen normal to inspection and normal bowel sounds Percussion/Palpation: abdomen soft; abdomen nontender, no guarding, abdomen not rigid and no hepatosplenomegaly Musculoskeletal: gen weakness contractures BUE BLE Skin: pale, cool, dry skin Neurologic: awake Psychiatric: Orientation: alert and oriented to person Mood: + depressed mood and + anxious mood Thought Process: + tangential thought process, + looseness of associations and + perseveration Thought Content: + cognitive distortions and + thought insertion Insight: + impaired insight Judgment: + impaired judgement Genitourinary: Ramirez intact Results & Data Vital Signs (Past 12 Hours) Vital Signs Temp Pulse Resp BP Pulse Ox O2 Del Method 04/26/24 08:39 Room Air 04/26/24 07:05 36.7 C 82 18 130/70 93 Room Air Laboratory Results 04/26/24 04/25/24 04/24/24 Range/Units 06:19 08:38 12:45 WBC 9.73 7.54 (4.8-10.8) K/ul RBC 4.17 L 4.43 (4.20-5.40) M/uL Hgb 10.7 L 11.2 L (12.0-16.0) g/dl Hct 34.4 L 35.4 L (37.0-47.0) % MCV 82.5 79.9 L (80.0-100.0) fL MCH 25.7 25.3 (25.0-34.0) pg MCHC 31.1 L 31.6 L (32.0-36.0) g/dL RDW Std Deviation 50.2 H 47.8 H (36.4-46.3) fL RDW Coeff of Atilio 16.8 H 16.4 H (11.5-14.5) % Plt Count 190 243 (130-400) K/uL MPV 10.1 10.3 (9.4-12.4) fL Immature Gran % (Auto) 0.1 % Neut % (Auto) 38.4 % Lymph % (Auto) 60.2 % [place] % (Auto) 1.2 % Eos % (Auto) 0.0 % Baso % (Auto) 0.1 % Neut # (Auto) 2.89 (1.40-6.50) K/uL Lymph # (Auto) 4.54 H (1.20-3.40) K/uL [place] # (Auto) 0.09 L (0.11-0.59) K/uL Eos # (Auto) 0.00 (0.00-0.50) K/uL Baso # (Auto) 0.01 (0.00-0.20) K/uL Immature Gran # (Auto) 0.01 (0.01-0.20) K/uL Smudge Cells Present PT (9.0-12.0) Seconds INR (0.9-1.1) APTT (21-31) Seconds PTT Ratio Sodium 144 138 (136-145) mmol/L Potassium 4.2 4.1 (3.5-5.1) mmol/L Chloride 108 H 103 (98-107) mmol/L Carbon Dioxide 27 25 (21-32) mmol/L Anion Gap 9 10 (3-11) BUN 39 H 24 H (6-23) mg/dl Creatinine 0.73 0.62 (0.6-1.2) mg/dl Est Cr Clr Drug Dosing 61.5 72.4 ml/min eGFR 82.57 89.41 BUN/Creatinine Ratio 53.4 H 38.7 H (10-20) Glucose 113 H 151 H (70-99(Fasting)) mg/dl Estimat Average Glucose 146 mg/dl Hemoglobin A1c 6.7 H (4.5-5.6) % Calcium 9.5 9.8 (8.6-10.3) mg/dl Phosphorus 3.8 (2.5-4.9) mg/dl Magnesium 2.1 (1.7-2.4) mg/dl Total Bilirubin (0.2-1.0) mg/dl AST (13-39) U/L ALT (7-52) U/L Alkaline Phosphatase (34-104) U/L Troponin I High Sens (0-14) pg/ml Total Protein (6.0-8.3) gm/dl Albumin (3.4-5.0) gm/dl Globulin (2.5-4.0) gm/dl Albumin/Globulin Ratio (0.9-2) Lipase (11-82) U/L Procalcitonin 0.03 (0-0.5) ng/ml Urine Color Yellow Urine Appearance Cloudy A (Clear) Urine pH 8.5 H (4.5-7.5) Ur Specific [place] 1.020 (1.000-1.030) Urine Protein 2+ H (Negative) Urine Glucose (UA) Negative (Negative) Urine Ketones Negative (Negative) Urine Blood 3+ H (Negative) Urine Nitrite Negative (Negative) Urine Bilirubin Negative (Negative) Urine Urobilinogen Negative (Negative) Ur Leukocyte Esterase 3+ H (Negative) Urine RBC >20 H (0-2) /hpf Urine WBC >50 H (0-5) /hpf Ur Epithelial Cells 0-2 (0-2) /hpf Urine Bacteria 3+ H (None Seen) 04/24/24 Range/Units 12:10 WBC 11.18 H (4.8-10.8) K/ul RBC 4.52 (4.20-5.40) M/uL Hgb 11.4 L (12.0-16.0) g/dl Hct 36.2 L (37.0-47.0) % MCV 80.1 (80.0-100.0) fL MCH 25.2 (25.0-34.0) pg MCHC 31.5 L (32.0-36.0) g/dL RDW Std Deviation 47.4 H (36.4-46.3) fL RDW Coeff of Atilio 16.4 H (11.5-14.5) % Plt Count 240 (130-400) K/uL MPV 9.8 (9.4-12.4) fL Immature Gran % (Auto) 0.2 % Neut % (Auto) 58.2 % Lymph % (Auto) 37.5 % [place] % (Auto) 3.3 % Eos % (Auto) 0.4 % Baso % (Auto) 0.4 % Neut # (Auto) 6.51 H (1.40-6.50) K/uL Lymph # (Auto) 4.19 H (1.20-3.40) K/uL [place] # (Auto) 0.37 (0.11-0.59) K/uL Eos # (Auto) 0.04 (0.00-0.50) K/uL Baso # (Auto) 0.05 (0.00-0.20) K/uL Immature Gran # (Auto) 0.02 (0.01-0.20) K/uL Smudge Cells PT 10.7 (9.0-12.0) Seconds INR 1.0 (0.9-1.1) APTT 26 (21-31) Seconds PTT Ratio 1.0 Sodium 139 (136-145) mmol/L Potassium 4.4 (3.5-5.1) mmol/L Chloride 104 (98-107) mmol/L Carbon Dioxide 27 (21-32) mmol/L Anion Gap 8 (3-11) BUN 20 (6-23) mg/dl Creatinine 0.67 (0.6-1.2) mg/dl Est Cr Clr Drug Dosing 67.0 ml/min eGFR 87.75 BUN/Creatinine Ratio 29.9 H (10-20) Glucose 128 H (70-99(Fasting)) mg/dl Estimat Average Glucose mg/dl Hemoglobin A1c (4.5-5.6) % Calcium 9.9 (8.6-10.3) mg/dl Phosphorus (2.5-4.9) mg/dl Magnesium 1.8 (1.7-2.4) mg/dl Total Bilirubin 0.3 (0.2-1.0) mg/dl AST 22 (13-39) U/L ALT 16 (7-52) U/L Alkaline Phosphatase 105 H (34-104) U/L Troponin I High Sens 5.6 (0-14) pg/ml Total Protein 7.8 (6.0-8.3) gm/dl Albumin 4.4 (3.4-5.0) gm/dl Globulin 3.4 (2.5-4.0) gm/dl Albumin/Globulin Ratio 1.3 (0.9-2) Lipase 15 (11-82) U/L Procalcitonin (0-0.5) ng/ml Urine Color Urine Appearance (Clear) Urine pH (4.5-7.5) Ur Specific [place] (1.000-1.030) Urine Protein (Negative) Urine Glucose (UA) (Negative) Urine Ketones (Negative) Urine Blood (Negative) Urine Nitrite (Negative) Urine Bilirubin (Negative) Urine Urobilinogen (Negative) Ur Leukocyte Esterase (Negative) Urine RBC (0-2) /hpf Urine WBC (0-5) /hpf Ur Epithelial Cells (0-2) /hpf Urine Bacteria (None Seen) Diagnostic Findings Chest X-Ray 04/24/24 11:39 XR chest 1V portable CLINICAL HISTORY: Chest pain, nonspecific TECHNIQUE: Single frontal radiograph of the chest was obtained. Comparison: None available at the time of this dictation. FINDINGS: No lines and tubes are seen. The cardiomediastinal silhouette is normal. Lungs are underinflated but clear. No evidence of pleural effusion or pneumothorax. IMPRESSION: No acute chest disease. ACT 112: Negative or not required by law. Electronically signed by: Thad Lees M.D. 04/24/2024 12:38 PM KUB X-Ray 04/24/24 11:59 KUB HISTORY: Acute abdominal pain with nausea stent placement COMPARISON: CT 04/08/2024 FINDINGS: Right hemidiaphragm elevation. Cardiomegaly. Nonobstructive bowel gas pattern. Moderate fecal retention in the right hemicolon. A right ureteral stent is in place which appears to be in satisfactory positioning. No definite renal or ureteral calculi identified. Probable persistent pneumobilia. Bones appear grossly intact. The No pneumoperitoneum or pneumatosis. No fracture. IMPRESSION: 1. Nonobstructive bowel gas pattern with moderate colonic fecal retention 2. Right ureteral stent in place. 3. No renal or ureteral calculi identified. ACT 112: Negative or not required by law. The above report was generated using voice recognition software. It may contain grammatical, syntax or spelling errors. Electronically signed by: Rakesh Pisano M.D. 04/24/2024 12:39 PM Abdomen/Pelvis CT 04/24/24 15:41 EXAM: CT Abdomen and Pelvis With Intravenous Contrast INDICATION: Abdominal and back pain. TECHNIQUE: Axial computed tomography images of the abdomen and pelvis with intravenous contrast. Sagittal and coronal reformatted images were created and reviewed. This CT exam was performed using one or more of the following dose reduction techniques: automated exposure control, adjustment of the mA and/or kV according to patient size, and/or use of iterative reconstruction technique. CONTRAST: 93ml of Optiray 320 was administered intravenously. COMPARISON: 04/08/2024 FINDINGS: Limitations: None. Lung bases: There is new atelectasis in the right lung base. Pleural space: No visualized pleural effusion or pneumothorax. Heart: No abnormality noted. Mediastinum: No abnormality noted. ABDOMEN: Liver: No abnormality noted. Gallbladder and bile ducts: Stable extensive pneumobilia and mild Intermatic biliary dilatation. Smooth hepatic contour. No visible mass. The gallbladder is surgically absent. Air noted in the common bile duct. No fluid collection in the cholecystectomy bed. Pancreas: Homogeneous enhancement. No mass, inflammation or ductal dilation. Spleen: No significant abnormality noted. Adrenals: No significant abnormality noted. Kidneys and ureters: There is heterogeneous diminished enhancement of the right kidney. There is a right ureteral stent in place with decreased hydronephrosis now mild in degree. Distal loop of the stent is in the bladder and proximal loop in the renal pelvis. No urinary stone identified. Small cortical hypodensity in the left kidney likely a cyst. No urinary gas. Stomach and bowel: Moderate amounts of stool throughout the colon with extensive left diverticulosis. No obstruction or diverticulitis. PELVIS: Appendix: Well seen and appears normal. Bladder: The bladder is collapsed by catheter and is likely inflamed. No visible stone. Reproductive: Hysterectomy. ABDOMEN and PELVIS: Intraperitoneal space: No free air. No significant fluid collection. Bones/joints: Degenerative changes noted throughout the spine. No acute osseous abnormality seen. Soft tissues: Rectus diastases. There is a small fat-containing left inguinal hernia. Vasculature: No abdominal aortic aneurysm. Lymph nodes: No pathologically enlarged lymph nodes. IMPRESSION: 1. Right pyelonephritis and cystitis. Ureteral stent in good position with decreased hydronephrosis. 2. Moderate colonic stool and diverticulosis. No obstruction or diverticulitis. ACT 112: Negative or not required by law. Electronically signed by Ruthann Farah 04-24-2024 4:54 PM PG Care Time/CCT Total # of Minutes Spent Total Time Spent with Patient: Total time spent is greater than 50% in coordination of care (as documented) at patient's floor/unit and/or counseling patient: I spent 110 minutes overall addressing this case: 15min in medical data review/discussion with referring provider(s) and/or preparation for the visit 20 min in direct interaction with the patient/exam 50 min in Advance Care Planning/Goals of Care discussions as detailed above in note (must be >16min) 10 min in subsequent review and synthesis of assessment and plan 15 min communicating with other providers regarding the patient's case: Advanced Care Planning 33945 Advanced Care Planning 30 Min 05036 Advanced Care Planning Additional 30 [place] [address] IN/OBS CONSULT LVL 4,60M (25 - SIGNIFICANT, SEPARATELY IDENTIFIABLE ) Patient Type New Medical Decision Making High Complexity Diagnoses Altered mental status R40.0 Altered mental status type: somnolence Delirium R41.0 Weakness generalized R53.1 Advanced care planning/counseling discussion Z71.89 Palliative care by specialist Z51.5 Failure of outpatient treatment Z78.9 Additional Codes Advanced Care Planning - 29904 Advanced Care Planning 30 Min: 39203 Advanced Care Planning 30 Min ([id number]) Advanced Care Planning - 54353 Advanced Care Planning Additional 30 Min: 25584 Advanced Care Planning Additional 30 Min ([id number])
--- NOTE | 2024-04-26 16:27 | Hospitalist Progress Note ---
Date of Service April 26, 2024 Assessment & Plan (1) Acute confusion: (2) Ureteral stent present: Plan per previous hospitalist notes with addendum: Ms. Oro is an 83 yo female with a past medical history of delirium, recent hydronephrosis with stent placement, COPD, major depressive disorder, CLL, and constipation who presents to the hospital on 04/24 for worsening delirium and illness symptoms. Patient with complicated UTI and recently treated with linezolid. Daughter agreeable to palliative care for chronic condition and management of symptoms and idea of resources. Daughter quite tearful and reports patient on hospice previously but was "horrified by the treatment." #Complicated UTI #Recent stent placement - urine indicative of UTI, just finished course of linezolid prior to admission - had recent R ureteral stent replaced Dr Anderson 04/09; urology consulted - Urology evaluated: stable at this time continue conservative mgmt, stent in place -continue ng catheter -Cultures with marlene, will treat given presentation -Fluconazole 200mg daily for 10 days 04/26 Urine culture: Positive for Marlene, 100,000 colonies ID consulted in light of possible Marlene UTI with ureteral stent in place Continue empiric daptomycin plus ceftriaxone until urine culture has finalized #Acute metabolic encephalopathy, iso infection #Vascular dementia - daughter notes recent mental status changes with recent UTI and hospitalization - suspect this is due to polypharmacy with multiple agents that cause sedation (trazodone, tramadol, ativan, olanzapine) vs UTI vs recent hospital stay - last TSH wnl 2 weeks ago - Spoke to daughter who wishes to continue with home health 04/26 Seems to be answering most questions appropriately today Occasionally gets forgetful Treatment of UTI per above Monitor closely #Constipation - chronic, no BM in days - will do miralax BID + senokot but may need to escalate 04/26 If still with constipation today, will order tapwater enema and as needed lactulose #GERD - pantoprazole home dose once daily increased to BID given epigastric tenderness and daughter notes hx bad reflux #HTN - asymptomatic, permissible for now #Depression - continue home citalopram #HLD - holding home atorvastatin while on daptomycin #COPD - continue home inhalers #Hx DVT - on eliquis at home Holding home: Tramadol, trazodone, olanzapine, lorazepam as these may be contributing to her AMS. Holding home lyrica as this is now on her allergy list. Resume Diet: resumed diet VTE prophylaxis: home tracy Admission and Anticipated Discharge Date Admission Date: April 24, 2024 Subjective Follow-up for delirium, UTI, etc. Seen resting in bed, not in distress, answers most questions appropriately Oriented x 2 States she feels tired States she still has dysuria, some generalized abdominal discomfort and nausea No BMs, positive flatus No chest pain, palpitations, dizziness No other new symptoms Review of Systems Review of Systems: all noted and negative except for above Physical Exam Physical Exam: General- oriented x 2, not in distress, speaks in sentences with no effort or accessory muscle use Eyes- anicteric Neck- no JVD Lungs- clear breath sounds bilaterally, no rales/wheezes Heart- normal rate, regular rhythm; no murmurs Abdomen- normal bowel sounds, nondistended, soft, Mild generalized tenderness Extremities- no pretibial edema, no calf tenderness Neuro- alert, oriented x 2; no gross focal neurologic deficits Skin- warm & dry Results & Data Results & Data Vital Signs (Past 12 Hours) Vital Signs Temp Pulse Resp BP Pulse Ox O2 Del Method 04/26/24 14:46 36.8 C 83 16 149/72 H 94 Room Air 04/26/24 08:39 Room Air 04/26/24 07:05 36.7 C 82 18 130/70 93 Room Air all noted and reviewed including below
--- NOTE | 2024-04-27 14:40 | Infectious Disease Consult ---
Date of Service April 27, 2024 Telehealth Information I performed this visit using a real-time telehealth connection between my location and the patients location ([facility]). After connecting through interactive tele-video, patient was identified by name and date of and/or wristband check.Patient (or authorized healthcare call center representative) was informed that this was a telemedicine visit and it was being conducted confidentially over secure lines. My office door was closed and no one else was present in the room with me.Patient (or authorized healthcare call center representative) provided consent to proceed with the visit, expressed an understanding of privacy and security of the telemedicine visit, and gave permission to have a hospital call center representative in the room in order to assist with the visit and to conduct portions of the visit, as needed. I informed the patient (or authorized healthcare call center representative) that I reviewed their record and presented the opportunity for them to ask any questions regarding the visit today. The patient agreed to participate. Assessment & Plan (1) Acute UTI: Plan: Candiduria does not always need to be treated. However, given the patient is undergoing procedures and is symptomatic, I agree with fluconazole. Please ensure that QTc is acceptable and that there are no drug-drug interactions. Discuss dosing with your pharmacist. Duration will be two weeks. The patient should have weekly CBCd and CMP while on ABX. Infectious Disease is signing off and will no longer follow this patient. Contact us for any new issues that arise after we sign off. If any testing finalizes after ID signs off, you must notify us (ID is not automatically notified about any inpatient testing results, regardless of who ordered the test). ID will not follow the patient after discharge. If any antibiotics/lab were recommended, these will need to be managed by the patients PCP. History of Present Illness History of Present Illness The patient was admitted because of worsening delirium. A urine culture grew Marlene albicans. Given that the patient is s/p ureteral stent placement, she was seen by Urology. They recommended ABX treatment for [presumably] pyelonephritis. The patient reports that she initially had urinary frequecy and "bladder trouble" but this is resolving. She denies any other complaints. Allergies Allergy/AdvReac Type Severity Reaction Status Date / Time ibuprofen Allergy Unknown Unknown Unverified 09/04/23 17:30 Iodinated Contrast Media Allergy Unknown Unknown Unverified 09/04/23 17:30 iodine Allergy Unknown Unknown Unverified 09/04/23 17:30 metformin Allergy Unknown Unknown Unverified 09/04/23 17:30 naproxen Allergy Unknown Unknown Unverified 09/04/23 17:30 Penicillins Allergy Unknown Unknown Unverified 04/24/24 15:54 pregabalin Allergy Unknown Unknown Unverified 09/04/23 17:30 Home Medications Medication Instructions Recorded Confirmed Type acetaminophen 325 mg tablet 650 mg (2 x 325 mg) PO Q6 PRN mild 09/15/23 04/24/24 Rx pain scale 1-10 #1 tab albuterol sulfate 90 mcg/actuation 2 inh inhalation Q4H PRN shortness 09/15/23 04/24/24 Rx breath activated powder inhaler of breath or wheezing #1 ea atorvastatin 10 mg tablet 10 mg PO DAILY #30 tabs 09/15/23 04/24/24 Rx citalopram 10 mg tablet 10 mg PO DAILY #30 tabs 09/15/23 04/24/24 Rx cyanocobalamin (vitamin B-12) 500 1,000 mcg (2 x 500 mcg) PO QAM B12 09/15/23 04/24/24 Rx mcg tablet deficiency #0 tabs diclofenac sodium 1 % topical gel 1 ea topical TID #100 grams 09/15/23 04/24/24 Rx ferrous sulfate 325 mg (65 mg 325 mg PO DAILY #30 tabs 09/15/23 04/24/24 Rx iron) tablet (FeroSul) fluticasone 113 mcg-salmeterol 14 1 inh inhalation BID #1 ea 09/15/23 04/24/24 Rx mcg/actuation breath activated powdr lorazepam 1 mg tablet 0.5 mg (1/2 x 1 mg) PO DAILY #14 09/15/23 04/24/24 Rx tabs magnesium chloride 64 mg 128 mg (2 x 64 mg magnesium) PO 09/15/23 04/24/24 Rx (magnesium chloride) tablet DAILY #1 tab melatonin 5 mg tablet 5 mg PO HS #1 tab 09/15/23 04/24/24 Rx pantoprazole 40 mg tablet,delayed 40 mg PO DAILY #30 tabs 09/15/23 04/24/24 Rx release polyethylene glycol 3350 17 gram 17 g PO BID #100 ea 09/15/23 04/24/24 Rx oral powder packet (Miralax) sennosides 8.6 mg tablet (Senokot) 17.2 mg (2 x 8.6 mg) PO QAM #0 tabs 09/15/23 04/24/24 Rx tramadol 50 mg tablet 50 mg PO BID #60 tabs 09/15/23 04/24/24 Rx umeclidinium 62.5 mcg/actuation 1 inh inhalation DAILY #30 ea 09/15/23 04/24/24 Rx blister powder for inhalation apixaban 2.5 mg tablet (Eliquis) 2.5 mg PO BID #60 tabs 04/14/24 04/24/24 Rx lactulose 10 gram/15 mL (15 mL) 30 g (45 mL) PO BID 30 days #2,700 04/17/24 04/24/24 Rx oral solution mL linezolid 600 mg tablet 600 mg PO BID #14 tabs 04/17/24 04/24/24 Rx olanzapine 2.5 mg tablet 2.5 mg PO HS #3 tabs 04/17/24 04/24/24 Rx pregabalin 50 mg capsule 75 mg (1.5 x 50 mg) PO Q8 #90 caps 04/17/24 04/24/24 Rx trazodone 50 mg tablet 25 mg (1/2 x 50 mg) PO HS #30 tabs 04/17/24 04/24/24 Rx trolamine salicylate 10 % topical 1 applic EXT TID PRN muscle pain 04/17/24 04/24/24 Rx cream (Myoflex) #10 grams Patient History Medical History History of deep venous thrombosis (DVT) of distal vein of right lower extremity Anticoagulated History of CVA (cerebrovascular accident) Hypertension Diabetes Social History Smoking Status: Former smoker Tobacco Type: Cigarettes Second Hand Exposure: No; Do You Dip or Chew Tobacco: No; Hx Alcohol Use: No Hx Substance Use: No Preferred Language: [place] Communication Ability: Impaired Communication Ability Comment: disoriented, difficulty holding 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 Beliefs That Will Affect Care: None Current Living Situation: Family Current Living Situation Comment: yesenia Feels Safe at Home: Yes Assistive Devices: Hospital Bed, Mechanical Lift and Oxygen - Continuous Review of Systems As reviewed in HPI; a complete ROS was otherwise negative Physical Exam Vitals: see EMR Exam limited due to constraints of telemedicine Gen/Constitutional: appears at stated age, NAD, nontoxic Head: AT, NC Eyes: sclera anicteric, no conjunctival injection ENT: MMM, trachea midline Card: appears to be well-perfused Resp: not tachypneic, nml effort, symmetric chest rise, no accessory muscle use Derm: no visible diaphoresis, no visible rash, no visible jaundice Results & Data Vital Signs (Past 12 Hours) Vital Signs Temp Pulse Resp BP Pulse Ox O2 Del Method 04/27/24 07:42 36.7 C 89 16 123/63 95 Room Air Laboratory Results SEE EMR Diagnostic Findings [address], [place] [address] / Director: Mary Cardenas M.D. Clinical Laboratory Report Name: HANLEYASHLYN Brisa Acct: [id number] Status: ADM IN : 1940 [facility] [place] Date: 04/24/24 Age: 83 Sex: F Dis Date: Loc: Medical/Surgical/Ortho [address] [place] [address]/Bed: N386-2 Spec: [id number] Collected: 04/24/24-1245 Received: 04/24/24-[address]: Ash Ruggiero M.D. Source: Urine,Straight Cath OV Order: Ordered: Urine Culture Procedure Result Verified Site Urine Culture Final 04/26/24-1030 Organism 1 Marlene albicans [place] Count >100,000 CFU/ml Sens No Sensitivities to Follow Name: ASHLYN HANLEY : 1940 PAGE 1 Printed: 04/27/24 1441 END OF REPORT
--- NOTE | 2024-04-27 14:52 | Hospitalist Progress Note ---
Date of Service April 27, 2024 Assessment & Plan (1) Acute confusion: (2) Ureteral stent present: Plan per previous hospitalist notes with addendum: Ms. Oro is an 83 yo female with a past medical history of delirium, recent hydronephrosis with stent placement, COPD, major depressive disorder, CLL, and constipation who presents to the hospital on 04/24 for worsening delirium and illness symptoms. Patient with complicated UTI and recently treated with linezolid. Daughter agreeable to palliative care for chronic condition and management of symptoms and idea of resources. Daughter quite tearful and reports patient on hospice previously but was "horrified by the treatment." #Complicated UTI #Recent stent placement - urine indicative of UTI, just finished course of linezolid prior to admission - had recent R ureteral stent replaced Dr Anderson 04/09; urology consulted - Urology evaluated: stable at this time continue conservative mgmt, stent in place -continue ng catheter -Cultures with marlene, will treat given presentation -Fluconazole 200mg daily for 10 days 04/26 Urine culture: Positive for Marlene, 100,000 colonies ID consulted in light of possible Marlene UTI with ureteral stent in place Continue empiric daptomycin plus ceftriaxone until urine culture has finalized 05/07 ID consulted Continue fluconazole 20 mg p.o. daily x 2 weeks Monitor QT interval and weekly CBC, CMP DC daptomycin plus ceftriaxone #Acute metabolic encephalopathy, iso infection #Vascular dementia - daughter notes recent mental status changes with recent UTI and hospitalization - suspect this is due to polypharmacy with multiple agents that cause sedation (trazodone, tramadol, ativan, olanzapine) vs UTI vs recent hospital stay - last TSH wnl 2 weeks ago - Spoke to daughter who wishes to continue with home health 04/26 Seems to be answering most questions appropriately today Occasionally gets forgetful Treatment of UTI per above Monitor closely 04/27 Encephalopathy resolved Patient answering questions appropriately and oriented x 2 #Constipation - chronic, no BM in days - will do miralax BID + senokot but may need to escalate 04/26 If still with constipation today, will order tapwater enema and as needed lactulose 04/27 resolved #GERD - pantoprazole home dose once daily increased to BID given epigastric tenderness and daughter notes hx bad reflux #HTN - asymptomatic, permissible for now #Depression - continue home citalopram #HLD - holding home atorvastatin while on daptomycin #COPD - continue home inhalers #Hx DVT - on eliquis at home Holding home: Tramadol, trazodone, olanzapine, lorazepam as these may be contributing to her AMS. Holding home lyrica as this is now on her allergy list. Resume Diet: resumed diet VTE prophylaxis: home eliquis Disposition Possible discharge tomorrow Admission and Anticipated Discharge Date Admission Date: April 24, 2024 Subjective Follow-up for Marlene UTI, status post stent placement, etc. Seen resting in bed, comfortable, not in distress States she feels better today No abdominal pain, no problems with urination No fevers or chills States her appetite is good No other new symptoms Review of Systems Review of Systems: all noted and negative except for above Physical Exam Physical Exam: General- oriented x 2, not in distress, speaks in sentences with no effort or accessory muscle use Eyes- anicteric Neck- no JVD Lungs- clear breath sounds bilaterally, no rales/wheezes Heart- normal rate, regular rhythm; no murmurs Abdomen- normal bowel sounds, nondistended, soft, nontender Extremities- no pretibial edema, no calf tenderness Neuro- alert, oriented x 2; no gross focal neurologic deficits Skin- warm & dry Results & Data Results & Data Vital Signs (Past 12 Hours) Vital Signs Temp Pulse Resp BP Pulse Ox O2 Del Method 04/27/24 07:42 36.7 C 89 16 123/63 95 Room Air all noted and reviewed including below
--- NOTE | 2024-04-28 12:24 | Electrocardiogram Report ---
Test Reason : Blood Pressure : */* mmHG Vent. Rate : 80 BPM Atrial Rate : 80 BPM P-R Int : 134 ms QRS Dur : 70 ms QT Int : 434 ms P-R-T Axes : 14 -9 61 degrees QTcB Int : 500 ms Poor data quality, interpretation may be adversely affected Sinus rhythm Possible Old Inferior infarct (cited on or before 12-Sep-2023) Diffuse Minor Nonspecific T wave abnormality Abnormal ECG When compared with ECG of 24-Apr-2024 12:00, No significant change Confirmed by Jethro Dos Santos ([id number]) on 04/28/2024 12:24:38 PM Referred By: REFERRED SELF Confirmed By: Jethro Dos Santos
--- NOTE | 2024-04-28 17:13 | Hospitalist Progress Note ---
Date of Service April 28, 2024 Assessment & Plan (1) Acute confusion: (2) Ureteral stent present: Plan per previous hospitalist notes with addendum: Ms. Oro is an 83 yo female with a past medical history of delirium, recent hydronephrosis with stent placement, COPD, major depressive disorder, CLL, and constipation who presents to the hospital on 04/24 for worsening delirium and illness symptoms. Patient with complicated UTI and recently treated with linezolid. Daughter agreeable to palliative care for chronic condition and management of symptoms and idea of resources. Daughter quite tearful and reports patient on hospice previously but was "horrified by the treatment." #Complicated UTI #Recent stent placement - urine indicative of UTI, just finished course of linezolid prior to admission - had recent R ureteral stent replaced Dr Anderson 04/09; urology consulted - Urology evaluated: stable at this time continue conservative mgmt, stent in place -continue ng catheter -Cultures with marlene, will treat given presentation -Fluconazole 200mg daily for 10 days 04/26 Urine culture: Positive for Marlene, 100,000 colonies ID consulted in light of possible Marlene UTI with ureteral stent in place Continue empiric daptomycin plus ceftriaxone until urine culture has finalized 04/27 ID consulted Continue fluconazole 20 mg p.o. daily x 2 weeks Monitor QT interval and weekly CBC, CMP DC daptomycin plus ceftriaxone 04/28 Clinically improved QT interval below 500 Continue fluconazole #Acute metabolic encephalopathy, iso infection #Vascular dementia - daughter notes recent mental status changes with recent UTI and hospitalization - suspect this is due to polypharmacy with multiple agents that cause sedation (trazodone, tramadol, ativan, olanzapine) vs UTI vs recent hospital stay - last TSH wnl 2 weeks ago - Spoke to daughter who wishes to continue with home health 04/26 Seems to be answering most questions appropriately today Occasionally gets forgetful Treatment of UTI per above Monitor closely 04/28 Encephalopathy resolved Patient answering questions appropriately and oriented x 2 #Constipation - chronic, no BM in days - will do miralax BID + senokot but may need to escalate 04/26 If still with constipation today, will order tapwater enema and as needed lactulose 04/28 resolved #GERD - pantoprazole home dose once daily increased to BID given epigastric tenderness and daughter notes hx bad reflux #HTN - asymptomatic, permissible for now #Depression - continue home citalopram #HLD - holding home atorvastatin while on daptomycin #COPD - continue home inhalers #Hx DVT - on eliquis at home Holding home: Tramadol, trazodone, olanzapine, lorazepam as these may be contributing to her AMS. Holding home lyrica as this is now on her allergy list. Resume Diet: resumed diet VTE prophylaxis: home eliquis Disposition Discussed with patient's daughter over the phone She is requesting for the patient can stay until Wednesday because they have not set up her new apartment yet software configuration manager notified Admission and Anticipated Discharge Date Admission Date: April 24, 2024 Subjective Follow-up for Marlene UTI in the setting of stent placement, etc. Seen resting in bed, comfortable, in good spirits States she feels much better overall Denies abdominal pain, problems with urination No fevers or chills no other symptoms Review of Systems Review of Systems: all noted and negative except for above Physical Exam Physical Exam: General- oriented x 2, not in distress, speaks in sentences with no effort or accessory muscle use Eyes- anicteric Neck- no JVD Lungs- clear breath sounds bilaterally, no rales/wheezes Heart- normal rate, regular rhythm; no murmurs Abdomen- normal bowel sounds, nondistended, soft, nontender Extremities- no pretibial edema, no calf tenderness Neuro- alert, oriented x 2; no gross focal neurologic deficits Skin- warm & dry Results & Data Results & Data Vital Signs (Past 12 Hours) Vital Signs Temp Pulse Resp BP Pulse Ox O2 Del Method 04/28/24 14:45 37.3 C 90 17 138/78 93 Room Air 04/28/24 12:55 Room Air 04/28/24 07:12 36.4 C L 89 18 129/83 96 Room Air all noted and reviewed including below
[2024-04-29 09:00] LABS: Basophils # (auto) 0.06 K/uL (0.00-0.20); Basophils % (auto) 0.5 %; Eosinophils # (auto) 0.18 K/uL (0.00-0.50); Eosinophils % (auto) 1.6 %; Hemoglobin 11.2 g/dl (12.0-16.0); Immature Granulocytes # (auto) 0.02 K/uL (0.01-0.20); Immature Granulocytes % (auto) 0.2 %; Lymphocytes % (auto) 41.7 %; Mean Corpuscular Hemoglobin 25.5 pg (25.0-34.0); Mean Corpuscular Hgb Conc 31.1 g/dL (32.0-36.0); Mean Corpuscular Volume 81.8 fL (80.0-100.0); Mean Platelet Volume 9.5 fL (9.4-12.4); Monocytes # (auto) 0.53 K/uL (0.11-0.59); Monocytes % (auto) 4.8 %; Neutrophils # (auto) 5.64 K/uL (1.40-6.50); Neutrophils % (auto) 51.2 %; Platelet Count 184 K/uL (130-400); RDW Standard Deviation 49.9 fL (36.4-46.3); White Blood Count 11.03 K/ul (4.8-10.8)
[2024-04-29 09:18] LABS: BUN Creatinine Ratio 47.1 (10-20); Calcium 9.7 mg/dl (8.6-10.3); Creatinine Clr Calc Pharmacy 64.1 ml/min; Potassium 4.3 mmol/L (3.5-5.1)
[2024-04-29] MEDS: SODIUM CHLORIDE 0.9% 1,000 ML IV SCH (12:53)
--- NOTE | 2024-04-29 16:16 | Hospitalist Progress Note ---
Date of Service April 29, 2024 Assessment & Plan (1) Acute confusion: (2) Ureteral stent present: Plan per previous hospitalist notes with addendum: Ms. Oro is an 83 yo female with a past medical history of delirium, recent hydronephrosis with stent placement, COPD, major depressive disorder, CLL, and constipation who presents to the hospital on 04/24 for worsening delirium and illness symptoms. Patient with complicated UTI and recently treated with linezolid. Daughter agreeable to palliative care for chronic condition and management of symptoms and idea of resources. Daughter quite tearful and reports patient on hospice previously but was "horrified by the treatment." #Complicated UTI #Recent stent placement - urine indicative of UTI, just finished course of linezolid prior to admission - had recent R ureteral stent replaced Dr Anderson 04/09; urology consulted - Urology evaluated: stable at this time continue conservative mgmt, stent in place -continue ng catheter -Cultures with marlene, will treat given presentation -Fluconazole 200mg daily for 10 days 04/26 Urine culture: Positive for Marlene, 100,000 colonies ID consulted in light of possible Marlene UTI with ureteral stent in place Continue empiric daptomycin plus ceftriaxone until urine culture has finalized 04/27 ID consulted Continue fluconazole 20 mg p.o. daily x 2 weeks Monitor QT interval and weekly CBC, CMP DC daptomycin plus ceftriaxone 04/28 Clinically improved QT interval below 500 Continue fluconazole 04/29 Remains stable Continue fluconazole IV fluids in light of poor oral fluid intake #Acute metabolic encephalopathy, iso infection #Vascular dementia - daughter notes recent mental status changes with recent UTI and hospitalization - suspect this is due to polypharmacy with multiple agents that cause sedation (trazodone, tramadol, ativan, olanzapine) vs UTI vs recent hospital stay - last TSH wnl 2 weeks ago - Spoke to daughter who wishes to continue with home health 04/26 Seems to be answering most questions appropriately today Occasionally gets forgetful Treatment of UTI per above Monitor closely 04/29 Encephalopathy resolved Patient answering questions appropriately and oriented x 2 #Constipation - chronic, no BM in days - will do miralax BID + senokot but may need to escalate 04/26 If still with constipation today, will order tapwater enema and as needed lactulose 04/29 resolved #GERD - pantoprazole home dose once daily increased to BID given epigastric tenderness and daughter notes hx bad reflux #HTN - asymptomatic, permissible for now #Depression - continue home citalopram #HLD - holding home atorvastatin while on daptomycin #COPD - continue home inhalers #Hx DVT - on eliquis at home Holding home: Tramadol, trazodone, olanzapine, lorazepam as these may be contributing to her AMS. Holding home lyrica as this is now on her allergy list. Resume Diet: resumed diet VTE prophylaxis: home eliquis Disposition Discharge to home tomorrow Admission and Anticipated Discharge Date Admission Date: April 24, 2024 Subjective Follow-up for Marlene UTI, etc. Seen resting in bed, in good spirits Having lunch States she feels fine overall Abdominal pain, fevers or chills No other new symptoms Review of Systems Review of Systems: all noted and negative except for above Physical Exam Physical Exam: General- oriented x 2, not in distress, speaks in sentences with no effort or accessory muscle use Eyes- anicteric Neck- no JVD Lungs- clear breath sounds bilaterally, no rales/wheezes Heart- normal rate, regular rhythm; no murmurs Abdomen- normal bowel sounds, nondistended, soft, nontender Ng catheter: Draining brown urine No other new symptoms Extremities- no pretibial edema, no calf tenderness Neuro- alert, oriented x 2; no gross focal neurologic deficits Skin- warm & dry Results & Data Results & Data Vital Signs (Past 12 Hours) Vital Signs Temp Pulse Resp BP Pulse Ox O2 Del Method 04/29/24 14:33 36.9 C 88 18 126/73 94 Room Air 04/29/24 08:23 Room Air 04/29/24 07:13 36.8 C 86 18 125/72 94 Room Air all noted and reviewed including below
--- NOTE | 2024-04-29 17:37 | Electrocardiogram Report ---
Test Reason : Blood Pressure : */* mmHG Vent. Rate : 85 BPM Atrial Rate : 85 BPM P-R Int : 170 ms QRS Dur : 70 ms QT Int : 402 ms P-R-T Axes : 19 -7 47 degrees QTcB Int : 478 ms Poor data quality, interpretation may be adversely affected Sinus rhythm Low voltage QRS Possible Inferior infarct (cited on or before 12-Sep-2023) Nonspecific T wave abnormality Abnormal ECG When compared with ECG of 28-Apr-2024 06:51, No significant change Confirmed by Dereck Napoles ([id number]) on 04/29/2024 5:37:09 PM Referred By: REFERRED SELF Confirmed By: Dereck Napoles
[2024-04-30 08:24] VITALS: RESP 18
--- NOTE | 2024-04-30 16:59 | Discharge Summary ---
Discharge Summary Date of Service April 30, 2024 Principal Dx & Hospital Course #1 = Principal Diagnosis (1) Acute confusion: (2) Ureteral stent present: Plan per previous hospitalist notes with addendum: Ms. Oro is an 83 yo female with a past medical history of delirium, recent hydronephrosis with stent placement, COPD, major depressive disorder, CLL, and constipation who presents to the hospital on 04/24 for worsening delirium and illness symptoms. Patient with complicated UTI and recently treated with linezolid. Daughter agreeable to palliative care for chronic condition and management of symptoms and idea of resources. Daughter quite tearful and reports patient on hospice previously but was "horrified by the treatment." #Complicated UTI, Marlene #Recent stent placement - urine indicative of UTI, just finished course of linezolid prior to admission - had recent R ureteral stent replaced Dr Anderson 04/09; urology consulted - Urology evaluated: stable at this time continue conservative mgmt, stent in place, continue ng catheter Urine culture: Positive for Marlene, 100,000 colonies ID consulted in light of possible Marlene UTI with ureteral stent in place: Recommend fluconazole 20 mg p.o. daily x 2 weeks Monitor QT interval and weekly CBC, CMP #Acute metabolic encephalopathy, iso infection #Vascular dementia - daughter notes recent mental status changes with recent UTI and hospitalization - suspect this is due to polypharmacy with multiple agents that cause sedation (trazodone, tramadol, ativan, olanzapine) vs UTI vs recent hospital stay - last TSH wnl 2 weeks ago - Spoke to daughter who wishes to continue with home health Encephalopathy resolved Discontinued Tramadol, trazodone, olanzapine, lorazepam as these may be contributing to her AMS Patient answering questions appropriately and oriented x 2 #Constipation - chronic, no BM in days - will do miralax BID + senokot but may need to escalate resolved #GERD - pantoprazole home dose once daily increased to BID given epigastric tenderness and daughter notes hx bad reflux Abdominal pain resolved #HTN Amlodipine 10 mg p.o. daily started Monitor closely #Depression - continue home citalopram #HLD On atorvastatin #COPD - continue home inhalers #Hx DVT - on eliquis at home Diet: resumed diet VTE prophylaxis: home eliquis Disposition Discharge to home PCP follow-up in 1 week Notes For Next Care Provider Medication Changes From Visit Fluconazole- to treat fungal infection in the urine Amlodipine-to treat her blood pressure MiraLAX, Senokot-stool softeners Please take a probiotic daily for at least 1 month. Renew life Brand recommended. Stop tramadol, trazodone, olanzapine, lorazepam. Admission HPI Per Admitting Provider Pt is a 83 yo female with a past medical history of delirium, recent hydronephrosis with stent placement, COPD, major depressive disorder, and constipation who presents to the hospital on 04/24 for worsening delirium and illness symptoms. Pt seen at bedside, oriented to self only. She states she is here because she feels warm today and one of her toes hurts. She states she otherwise feels fine. She states she lives with her daughter but then with her granddaughter, then states I should call her mom to ask what is actually going on because she says she is not sure how to explain it. Called daughter Anita in the chart, who is her daughter that she lives with. She states that she brought her in because she has been getting progressively more confused the last few days, arguing with her at home about who even she is to her and that today she noticed she was also very flushed and sweaty and just looked ill. Tremor has been present for a few months and daughter states her anxiety has been very bad ever since pt's son (her brother) . She states that the pt gets very sick with UTIs and often gets very confused with them but this is the worst it has been. Discussed code status with her, pt is DNR/DNI per pt's wishes. Pt was on hospice until 2 weeks ago when she did not qualify anymore. Daughter states with IV contrast she gets foot/ankle swelling. Never facial swelling. Usually given prednisone/Benadryl before scans. Admission Exam Per Admitting Provider General: Alert, oriented to self only, no acute distress but sweaty Cardio: Regular rate and rhythm, Resp: Lungs clear to auscultation b/l, no wheezes or rhonchi, GI: Soft with some epigastric tenderness, nondistended, bowel sounds active : Ng in place draining yellow urine Skin: Warm, pink, dry, Discharge Exam General- oriented x 2, not in distress, speaks in sentences with no effort or accessory muscle use Eyes- anicteric Neck- no JVD Lungs- clear breath sounds bilaterally, no rales/wheezes Heart- normal rate, regular rhythm; no murmurs Abdomen- normal bowel sounds, nondistended, soft, nontender Extremities- no pretibial edema, no calf tenderness Neuro- alert, oriented x 2; no gross focal neurologic deficits Skin- warm & dry Updated Medication List Medication Instructions Recorded Confirmed Type acetaminophen 325 mg tablet 650 mg (2 x 325 mg) PO Q6 PRN mild 09/15/23 04/24/24 Rx pain scale 1-10 #1 tab albuterol sulfate 90 mcg/actuation 2 inh inhalation Q4H PRN shortness 09/15/23 04/24/24 Rx breath activated powder inhaler of breath or wheezing #1 ea atorvastatin 10 mg tablet 10 mg PO DAILY #30 tabs 09/15/23 04/24/24 Rx citalopram 10 mg tablet 10 mg PO DAILY #30 tabs 09/15/23 04/24/24 Rx cyanocobalamin (vitamin B-12) 500 1,000 mcg (2 x 500 mcg) PO QAM B12 09/15/23 04/24/24 Rx mcg tablet deficiency #0 tabs diclofenac sodium 1 % topical gel 1 ea topical TID #100 grams 09/15/23 04/24/24 Rx ferrous sulfate 325 mg (65 mg 325 mg PO DAILY #30 tabs 09/15/23 04/24/24 Rx iron) tablet (FeroSul) fluticasone 113 mcg-salmeterol 14 1 inh inhalation BID #1 ea 09/15/23 04/24/24 Rx mcg/actuation breath activated powdr lorazepam 1 mg tablet 0.5 mg (1/2 x 1 mg) PO DAILY #14 09/15/23 04/24/24 Rx tabs magnesium chloride 64 mg 128 mg (2 x 64 mg magnesium) PO 09/15/23 04/24/24 Rx (magnesium chloride) tablet DAILY #1 tab melatonin 5 mg tablet 5 mg PO HS #1 tab 09/15/23 04/24/24 Rx pantoprazole 40 mg tablet,delayed 40 mg PO DAILY #30 tabs 09/15/23 04/24/24 Rx release polyethylene glycol 3350 17 gram 17 g PO BID #100 ea 09/15/23 04/24/24 Rx oral powder packet (Miralax) sennosides 8.6 mg tablet (Senokot) 17.2 mg (2 x 8.6 mg) PO QAM #0 tabs 09/15/23 04/24/24 Rx tramadol 50 mg tablet 50 mg PO BID #60 tabs 09/15/23 04/24/24 Rx umeclidinium 62.5 mcg/actuation 1 inh inhalation DAILY #30 ea 09/15/23 04/24/24 Rx blister powder for inhalation apixaban 2.5 mg tablet (Eliquis) 2.5 mg PO BID #60 tabs 04/14/24 04/24/24 Rx lactulose 10 gram/15 mL (15 mL) 30 g (45 mL) PO BID 30 days #2,700 04/17/24 04/24/24 Rx oral solution mL linezolid 600 mg tablet 600 mg PO BID #14 tabs 04/17/24 04/24/24 Rx olanzapine 2.5 mg tablet 2.5 mg PO HS #3 tabs 04/17/24 04/24/24 Rx pregabalin 50 mg capsule 75 mg (1.5 x 50 mg) PO Q8 #90 caps 04/17/24 04/24/24 Rx trazodone 50 mg tablet 25 mg (1/2 x 50 mg) PO HS #30 tabs 04/17/24 04/24/24 Rx trolamine salicylate 10 % topical 1 applic EXT TID PRN muscle pain 04/17/2402/07 Rx cream (Myoflex) #10 grams L.acidop,casei,lactis,rham-B.lact,bria 1 cap PO DAILY 30 days #30 caps 04/30/24 Rx 625 mg (10 billion cell) capsule (Advanced Probiotic) amlodipine 5 mg tablet (Norvasc) 10 mg (2 x 5 mg) PO QAM 30 days 04/30/24 Rx #60 tabs fluconazole 100 mg tablet 200 mg (2 x 100 mg) PO QAM 8 days 04/30/24 Rx (Diflucan) #16 tabs Hospital Stay Data Consultations 04/24/24 13:42 ED Decision to Admit Stat 04/24/24 19:16 Consult Urology Routine 04/25/24 17:57 Consult Palliative Care Routine 04/26/24 08:48 Consult Infectious Diseases Routine Diagnostic Imagining Performed KUB HISTORY: Acute abdominal pain with nausea stent placement COMPARISON: CT 04/08/2024 FINDINGS: Right hemidiaphragm elevation. Cardiomegaly. Nonobstructive bowel gas pattern. Moderate fecal retention in the right hemicolon. A right ureteral stent is in place which appears to be in satisfactory positioning. No definite renal or ureteral calculi identified. Probable persistent pneumobilia. Bones appear gr ossly intact. The No pneumoperitoneum or pneumatosis. No fracture. IMPRESSION: 1. Nonobstructive bowel gas pattern with moderate colonic fecal retention 2. Right ureteral stent in place. 3. No renal or ureteral calculi identified. ACT 112: Negative or not required by law. The above report was generated using voice recognition software. It may contain grammatical, syntax or spelling errors. Electronically signed by: Rakesh Pisano M.D. 04/24/2024 12:39 PM 04/24/24 15:41 CT abd pelvis IV con only Stat EXAM: CT Abdomen and Pelvis With Intravenous Contrast INDICATION: Abdominal and back pain. TECHNIQUE: Axial computed tomography images of the abdomen and pelvis with intravenous contrast. Sagittal and coronal reformatted images were created and reviewed. This CT exam was performed using one or more of the following dose reduction techniques: automated exposure control, adjustment of the mA and/or kV according to patient size, and/or use of iterative reconstruction technique. CONTRAST: 93ml of Optiray 320 was administered intravenously. COMPARISON: 04/08/2024 FINDINGS: Limitations: None. Lung bases: There is new atelectasis in the right lung base. Pleural space: No visualized pleural effusion or pneumothorax. Heart: No abnormality noted. Mediastinum: No abnormality noted. ABDOMEN: Liver: No abnormality noted. Gallbladder and bile ducts: Stable extensive pneumobilia and mild Intermatic biliary dilatation. Smooth hepatic contour. No visible mass. The gallbladder is surgically absent. Air noted in the common bile duct. No fluid collection in the cholecystectomy bed. Pancreas: Homogeneous enhancement. No mass, inflammation or ductal dilation. Spleen: No significant abnormality noted. Adrenals: No significant abnormality noted. Kidneys and ureters: There is heterogeneous diminished enhancement of the right kidney. There is a right ureteral stent in place with decreased hydronephrosis now mild in degree. Distal loop of the stent is in the bladder and proximal loop in the renal pelvis. No urinary stone identified. Small cortical hypodensity in the left kidney likely a cyst. No urinary gas. Stomach and bowel: Moderate amounts of stool throughout the colon with extensive left diverticulosis. No obstruction or diverticulitis. PELVIS: Appendix: Well seen and appears normal. Bladder: The bladder is collapsed by catheter and is likely inflamed. No visible stone. Reproductive: Hysterectomy. ABDOMEN and PELVIS: Intraperitoneal space: No free air. No significant fluid collection. Bones/joints: Degenerative changes noted throughout the spine. No acute osseous abnormality seen. Soft tissues: Rectus diastases. There is a small fat-containing left inguinal hernia. Vasculature: No abdominal aortic aneurysm. Lymph nodes: No pathologically enlarged lymph nodes. IMPRESSION: 1. Right pyelonephritis and cystitis. Ureteral stent in good position with decreased hydronephrosis. 2. Moderate colonic stool and diverticulosis. No obstruction or diverticulitis. ACT 112: Negative or not required by law. Electronically signed by Ruthann Farah 04-24-2024 4:54 PM Pending Results Patient Have Any Pending Studies at Discharge: No Discharge Instructions Given to Patient (Per Discharging Provider) PLEASE REFER TO YOUR NEW MEDICATION LIST AND FOLLOW INSTRUCTIONS CAREFULLY. YOUR NEW MEDICATIONS INCLUDE: Fluconazole- to treat fungal infection in the urine Amlodipine-to treat her blood pressure MiraLAX, Senokot-stool softeners Please take a probiotic daily for at least 1 month. Renew life Brand recommended. Stop tramadol, trazodone, olanzapine, lorazepam. PLEASE CALL YOUR PRIMARY CARE PHYSICIAN OR RETURN TO THE ER IF WITH WORSENING OF SYMPTOMS, INCLUDING Confusion, fevers or chills, weakness, nausea vomiting, problems with urination, blood in the urine, etc. FOLLOW UP WITH PRIMARY CARE PHYSICIAN OUTLINED ABOVE. Follow-up with Dr. Anna/Dr. Anderson of [facility] urology clinic in 1 week. Contact information outlined above. Please call their office for an appointment. Total Time Total Time Spent Total Time Spent (In Minutes): 45 minutes
[2024-05-01 05:55] VITALS: BP 130/82; PULSE 80; TEMP 97.9; O2SAT 95
--- NOTE | 2024-05-01 09:32 | Discharge Summary ---
Discharge Summary Date of Service May 01, 2024 Principal Dx & Hospital Course #1 = Principal Diagnosis (1) Acute confusion: (2) Ureteral stent present: Plan per previous hospitalist notes with addendum: Ms. Oro is an 83 yo female with a past medical history of delirium, recent hydronephrosis with stent placement, COPD, major depressive disorder, CLL, and constipation who presents to the hospital on 04/24 for worsening delirium and illness symptoms. Patient with complicated UTI and recently treated with linezolid. #Complicated UTI, Marlene #Recent stent placement - urine indicative of UTI, just finished course of linezolid prior to admission - had recent R ureteral stent replaced Dr Anderson 04/09; urology consulted - Urology evaluated: stable at this time continue conservative mgmt, stent in place, continue ng catheter Urine culture: Positive for Marlene, 100,000 colonies ID consulted in light of possible Marlene UTI with ureteral stent in place: Recommend fluconazole 20 mg p.o. daily x 2 weeks Monitor QT interval and weekly CBC, CMP #Acute metabolic encephalopathy, iso infection #Vascular dementia - daughter notes recent mental status changes with recent UTI and hospitalization - suspect this is due to polypharmacy with multiple agents that cause sedation (trazodone, tramadol, ativan, olanzapine) vs UTI vs recent hospital stay - last TSH wnl 2 weeks ago - Spoke to daughter who wishes to continue with home health - Encephalopathy resolved - Discontinued Tramadol, trazodone, olanzapine, lorazepam as these may be contributing to her AMS - Patient answering questions appropriately and oriented x 2 #Constipation - chronic, - will do miralax BID + senokot but may need to escalate - resolved #GERD - pantoprazole home dose once daily increased to BID given epigastric tenderness and daughter notes hx bad reflux Abdominal pain resolved #HTN Amlodipine 10 mg p.o. daily started Monitor closely #Depression - continue home citalopram #HLD On atorvastatin #COPD - continue home inhalers #Hx DVT - on eliquis at home Diet: resumed diet VTE prophylaxis: home eliquis Disposition Discharge to home PCP follow-up in 1 week Notes For Next Care Provider please refer CBC, BMP at time of hospital follow up. Also check ECG for QTC interval while on fluconazole. Please ensure pt has urology follow up. Medication Changes From Visit Fluconazole- to treat fungal infection in the urine Amlodipine-to treat her blood pressure MiraLAX, Senokot-stool softeners Please take a probiotic daily for at least 1 month. Renew life Brand recommended. Stop tramadol, trazodone, olanzapine, lorazepam. Admission HPI Per Admitting Provider Pt is a 83 yo female with a past medical history of delirium, recent hydronephrosis with stent placement, COPD, major depressive disorder, and constipation who presents to the hospital on 04/24 for worsening delirium and illness symptoms. Pt seen at bedside, oriented to self only. She states she is here because she feels warm today and one of her toes hurts. She states she otherwise feels fine. She states she lives with her daughter but then with her granddaughter, then states I should call her mom to ask what is actually going on because she says she is not sure how to explain it. Called daughter Anita in the chart, who is her daughter that she lives with. She states that she brought her in because she has been getting progressively more confused the last few days, arguing with her at home about who even she is to her and that today she noticed she was also very flushed and sweaty and just looked ill. Tremor has been present for a few months and daughter states her anxiety has been very bad ever since pt's son (her brother) . She states that the pt gets very sick with UTIs and often gets very confused with them but this is the worst it has been. Discussed code status with her, pt is DNR/DNI per pt's wishes. Pt was on hospice until 2 weeks ago when she did not qualify anymore. Daughter states with IV contrast she gets foot/ankle swelling. Never facial swelling. Usually given prednisone/Benadryl before scans. Admission Exam Per Admitting Provider General: Alert, oriented to self only, no acute distress but sweaty Cardio: Regular rate and rhythm, Resp: Lungs clear to auscultation b/l, no wheezes or rhonchi, GI: Soft with some epigastric tenderness, nondistended, bowel sounds active : Ng in place draining yellow urine Skin: Warm, pink, dry, Discharge Exam Gen: elderly, F, NAD, A&O x2 basics only HEENT: Normocephalic, atraumatic, conjunctivae moist, sclerae anicteric, mucous membranes moist. Lung: Clear to Auscultation bilaterally, no wheezes/rales/rhonchi Heart: Regular rate, regular rhythm,S1/S2 Abdomen: Soft, NT, ND +BS x 4 Extremities: RA deformity of toes Skin: Warm, no rash, negative turgor. : + ng in place draining yellow urine Updated Medication List Medication Instructions Recorded Confirmed Type acetaminophen 325 mg tablet 650 mg (2 x 325 mg) PO Q6 PRN mild 09/15/23 04/24/24 Rx pain scale 1-10 #1 tab albuterol sulfate 90 mcg/actuation 2 inh inhalation Q4H PRN shortness 09/15/23 04/24/24 Rx breath activated powder inhaler of breath or wheezing #1 ea atorvastatin 10 mg tablet 10 mg PO DAILY #30 tabs 09/15/23 04/24/24 Rx citalopram 10 mg tablet 10 mg PO DAILY #30 tabs 09/15/23 04/24/24 Rx cyanocobalamin (vitamin B-12) 500 1,000 mcg (2 x 500 mcg) PO QAM B12 09/15/23 04/24/24 Rx mcg tablet deficiency #0 tabs diclofenac sodium 1 % topical gel 1 ea topical TID #100 grams 09/15/23 04/24/24 Rx ferrous sulfate 325 mg (65 mg 325 mg PO DAILY #30 tabs 09/15/23 04/24/24 Rx iron) tablet (FeroSul) fluticasone 113 mcg-salmeterol 14 1 inh inhalation BID #1 ea 09/15/23 04/24/24 Rx mcg/actuation breath activated powdr melatonin 5 mg tablet 5 mg PO HS #1 tab 09/15/23 04/24/24 Rx pantoprazole 40 mg tablet,delayed 40 mg PO DAILY #30 tabs 09/15/23 04/24/24 Rx release polyethylene glycol 3350 17 gram 17 g PO BID #100 ea 09/15/23 04/24/24 Rx oral powder packet (Miralax) sennosides 8.6 mg tablet (Senokot) 17.2 mg (2 x 8.6 mg) PO QAM #0 tabs 09/15/23 04/24/24 Rx umeclidinium 62.5 mcg/actuation 1 inh inhalation DAILY #30 ea 09/15/23 04/24/24 Rx blister powder for inhalation apixaban 2.5 mg tablet (Eliquis) 2.5 mg PO BID #60 tabs 04/14/24 04/24/24 Rx trolamine salicylate 10 % topical 1 applic EXT TID PRN muscle pain 04/17/24 04/24/24 Rx cream (Myoflex) #10 grams L.acidop,casei,lactis,rham-B.lact,bria 1 cap PO DAILY 30 days #30 caps 04/30/24 Rx 625 mg (10 billion cell) capsule (Advanced Probiotic) amlodipine 5 mg tablet (Norvasc) 10 mg (2 x 5 mg) PO QAM 30 days 04/30/24 Rx #60 tabs fluconazole 100 mg tablet 200 mg (2 x 100 mg) PO QAM 8 days 04/30/24 Rx (Diflucan) #16 tabs Hospital Stay Data Consultations 04/24/24 13:42 ED Decision to Admit Stat 04/24/24 19:16 Consult Urology Routine 04/25/24 17:57 Consult Palliative Care Routine 04/26/24 08:48 Consult Infectious Diseases Routine Diagnostic Imagining Performed Chest X-Ray 04/24/24 11:39 XR chest 1V portable CLINICAL HISTORY: Chest pain, nonspecific TECHNIQUE: Single frontal radiograph of the chest was obtained. Comparison: None available at the time of this dictation. FINDINGS: No lines and tubes are seen. The cardiomediastinal silhouette is normal. Lungs are underinflated but clear. No evidence of pleural effusion or pneumothorax. IMPRESSION: No acute chest disease. ACT 112: Negative or not required by law. Electronically signed by: Thad Lees M.D. 04/24/2024 12:38 PM KUB X-Ray 04/24/24 11:59 KUB HISTORY: Acute abdominal pain with nausea stent placement COMPARISON: CT 04/08/2024 FINDINGS: Right hemidiaphragm elevation. Cardiomegaly. Nonobstructive bowel gas pattern. Moderate fecal retention in the right hemicolon. A right ureteral stent is in place which appears to be in satisfactory positioning. No definite renal or ureteral calculi identified. Probable persistent pneumobilia. Bones appear grossly intact. The No pneumoperitoneum or pneumatosis. No fracture. IMPRESSION: 1. Nonobstructive bowel gas pattern with moderate colonic fecal retention 2. Right ureteral stent in place. 3. No renal or ureteral calculi identified. ACT 112: Negative or not required by law. The above report was generated using voice recognition software. It may contain grammatical, syntax or spelling errors. Electronically signed by: Rakesh Pisano M.D. 04/24/2024 12:39 PM Abdomen/Pelvis CT 04/24/24 15:41 EXAM: CT Abdomen and Pelvis With Intravenous Contrast INDICATION: Abdominal and back pain. TECHNIQUE: Axial computed tomography images of the abdomen and pelvis with intravenous contrast. Sagittal and coronal reformatted images were created and reviewed. This CT exam was performed using one or more of the following dose reduction techniques: automated exposure control, adjustment of the mA and/or kV according to patient size, and/or use of iterative reconstruction technique. CONTRAST: 93ml of Optiray 320 was administered intravenously. COMPARISON: 04/08/2024 FINDINGS: Limitations: None. Lung bases: There is new atelectasis in the right lung base. Pleural space: No visualized pleural effusion or pneumothorax. Heart: No abnormality noted. Mediastinum: No abnormality noted. ABDOMEN: Liver: No abnormality noted. Gallbladder and bile ducts: Stable extensive pneumobilia and mild Intermatic biliary dilatation. Smooth hepatic contour. No visible mass. The gallbladder is surgically absent. Air noted in the common bile duct. No fluid collection in the cholecystectomy bed. Pancreas: Homogeneous enhancement. No mass, inflammation or ductal dilation. Spleen: No significant abnormality noted. Adrenals: No significant abnormality noted. Kidneys and ureters: There is heterogeneous diminished enhancement of the right kidney. There is a right ureteral stent in place with decreased hydronephrosis now mild in degree. Distal loop of the stent is in the bladder and proximal loop in the renal pelvis. No urinary stone identified. Small cortical hypodensity in the left kidney likely a cyst. No urinary gas. Stomach and bowel: Moderate amounts of stool throughout the colon with extensive left diverticulosis. No obstruction or diverticulitis. PELVIS: Appendix: Well seen and appears normal. Bladder: The bladder is collapsed by catheter and is likely inflamed. No visible stone. Reproductive: Hysterectomy. ABDOMEN and PELVIS: Intraperitoneal space: No free air. No significant fluid collection. Bones/joints: Degenerative changes noted throughout the spine. No acute osseous abnormality seen. Soft tissues: Rectus diastases. There is a small fat-containing left inguinal hernia. Vasculature: No abdominal aortic aneurysm. Lymph nodes: No pathologically enlarged lymph nodes. IMPRESSION: 1. Right pyelonephritis and cystitis. Ureteral stent in good position with decreased hydronephrosis. 2. Moderate colonic stool and diverticulosis. No obstruction or diverticulitis. ACT 112: Negative or not required by law. Electronically signed by Ruthann Farah 04-24-2024 4:54 PM Pending Results Patient Have Any Pending Studies at Discharge: No Discharge Instructions Given to Patient (Per Discharging Provider) PLEASE REFER TO YOUR NEW MEDICATION LIST AND FOLLOW INSTRUCTIONS CAREFULLY. YOUR NEW MEDICATIONS INCLUDE: Fluconazole- to treat fungal infection in the urine Amlodipine-to treat her blood pressure MiraLAX, Senokot-stool softeners Please take a probiotic daily for at least 1 month. Renew life Brand recommended. Stop tramadol, trazodone, olanzapine, lorazepam. PLEASE CALL YOUR PRIMARY CARE PHYSICIAN OR RETURN TO THE ER IF WITH WORSENING OF SYMPTOMS, INCLUDING Confusion, fevers or chills, weakness, nausea vomiting, problems with urination, blood in the urine, etc. FOLLOW UP WITH PRIMARY CARE PHYSICIAN OUTLINED ABOVE. Follow-up with Dr. Anna/Dr. Anderson of [facility] urology clinic in 1 week. Contact information outlined above. Please call their office for an appointment. Total Time Total Time Spent Total Time Spent (In Minutes): 35 minutes Supervising Physician Co-Signing Physician Notes delayed entry date of service noted above Attending Addendum: Case reviewed with the advanced practitioner. I have personally performed a history and physical examination on the patient. I have reviewed the advanced practitioner's documentation on the date of service referenced in note, and I agree with, and take responsibility for the plan of care. please refer to her notes for full details patient seen and examined, records reviewed by myself as well Ravindra Ferreira MD
== END 2024-05-01 10:16 | disposition home health service (06) | DRG 757 ==
LOC: ED 11:21 → 3N 15:16 → SUATTDRO 15:16 → 3N 18:32
DX: K21.9 Gastro-esophageal reflux disease without esophagitis; F32.A Depression, unspecified; Z88.0 Allergy status to penicillin; G93.41 Metabolic encephalopathy; K59.00 Constipation, unspecified; J44.9 Chronic obstructive pulmonary disease, unspecified; Z87.891 Personal history of nicotine dependence; E78.5 Hyperlipidemia, unspecified; I10 Essential (primary) hypertension; Z96.0 Presence of urogenital implants; F01.52 Vascular dementia, unspecified severity, with psychotic disturbance; Z86.14 Personal history of Methicillin resistant Staphylococcus aureus infection; E11.42 Type 2 diabetes mellitus with diabetic polyneuropathy; Z91.041 Radiographic dye allergy status; C91.10 Chronic lymphocytic leukemia of B-cell type not having achieved remission; Z79.84 Long term (current) use of oral hypoglycemic drugs; Z86.718 Personal history of other venous thrombosis and embolism; Z98.890 Other specified postprocedural states; B37.49 Other urogenital candidiasis; N13.30 Unspecified hydronephrosis

== ENCOUNTER 2024-05-06 19:20 | Inpatient (IN) ==
--- OUTSIDE RECORDS SUMMARY | 2024-05-06 22:44 | External Medical Summary | Summary of Care ---
Author Name Unknown Organization [facility] Address [address] [place] [address] Phone [phone] Care Team Providers Care Parcel Carrier Name Role Phone Lolis Tam DO Primary Care Provider [phone]- [phone] Reason for Visit * Reason Onset Date Comments Hospital Follow-Up 05/02/2024 [facility] 05/01 Encounter Details Date Type Department Care Team ([facility] Contact Info) Description 05/02/2024 Telephone Family Practice [facility] [place] [address] [facility] [place] [id number] Awilda Mckenzie RN Hospital Follow-Up ([facility] 05/01) Allergies Active Allergy Reactions Criticality Noted Date [...] as of this encounter (statuses as of 05/02/2024) Medications acetaminophen (TYLENOL) 325 MG Tablet Take 325 mg by mouth every 6 hours as needed. Active atorvaSTATin (LIPITOR) 10 MG Tablet Take 1 Tablet by mouth in the morning. Active bisacodyl (DULCOLAX) 10 MG suppository Administer 10 mg into the rectum every 3 days. Active Vitamin B-12 100 MCG Oral Tablet (vitamin B-12) Take 1 Tablet by mouth in the morning. Active Citalopram Hydrobromide 20 MG Oral Tablet (CeleXA) Take 1 Tablet by mouth in the morning. Active Fluconazole 100 MG Oral Tablet (Diflucan) Take 2 Tablets by mouth in the morning. 04/30/20 Active amLODIPine Besylate 5 MG Oral Tablet (Norvasc) Take 2 Tablets by mouth in the morning. 04/30/20 Active Apixaban 2.5 MG Oral Tablet (Eliquis) Take 1 Tablet by mouth in the morning and 1 Tablet before bedtime. Active Albuterol Sulfate HFA 108 (90 Base) MCG/ACT Inhalation Aerosol Solution Inhale 2 Puffs by mouth every 6 hours as needed. Active Ferrous Sulfate 324 (65 Fe) MG Oral Tablet Delayed Release Take 1 Tablet by mouth daily with breakfast. Active Fluticasone-Salmet tamanna 113-14 MCG/ACT Aerosol Powder Breath Activated Inhale 1 Inhalation by mouth in the morning and 1 Inhalation in the evening. Active Melatonin 5 MG Oral Tablet Take 1 Tablet by mouth at bedtime. Active Pantoprazole Sodium 40 MG Oral Tablet Delayed Release (Protonix) Take 1 Tablet by mouth in the morning. Active Umeclidinium [place] 62.5 MCG/ACT Inhalation Aerosol Powder Breath Activated (INCRUSE ellipta) Inhale 1 Puff by mouth in the morning. Active albuterol sulfate (PROVENTIL) (2.5 MG/3ML) 0.083% nebulizer solution Inhale 1 Vial via nebulizer in the morning and 1 Vial before bedtime. Discontin ued(Medic ation List Clean Up) Sodium Phosphates (FLEET ADULT) 7-19 GM/118ML enema Administer 1 Enema into the rectum every 3 days. Discontin ued(Medic ation List Clean Up) levETIRAcetam (KEPPRA) 500 MG Tablet Take 1 Tablet by mouth in the morning and 1 Tablet before bedtime. Discontin ued(Medic ation List Clean Up) lisinopril (PRINIVIL) 5 MG Tablet Take 1 Tablet by mouth in the morning. Discontin ued(Medic ation List Clean Up) metFORMIN (GLUCOPHAGE) 500 MG Tablet Take 500 mg by mouth daily. 1/2 tab once daily Discontin ued(Medic ation List Clean Up) milk of magnesia (MILK OF MAGNESIA) 400 MG/5ML suspension Take by mouth every 3 days. Discontin ued(Medic ation List Clean Up) polyethylene glycol 3350 (MIRALAX) 119 gram POWD Take 17 g by mouth 2 times a day. Discontin ued(Medic ation List Clean Up) dextromethorphan-q uinidine (NUEDEXTA) 20-10 MG CAPS Take by mouth 2 times a day. Discontin ued(Medic ation List Clean Up) omeprazole (PRILOSEC) 20 MG CPDR Take 1 Capsule by mouth in the morning and 1 Capsule before bedtime. Discontin ued(Medic ation List Clean Up) tiotropium bromide-olodaterol (STIOLTO RESPIMAT) 2.5-2.5 MCG/ACT Inhale 2 Puffs by mouth in the morning. Discontin ued(Medic ation List Clean Up) Estradiol 0.1 MG/GM Vaginal Cream Administer into the vagina 1 g once a day on Wednesday and Wednesday only . 42.5 g 12 12/24/19 Discontin ued(Medic ation List Clean Up) Albuterol Sulfate (2.5 MG/3ML) 0.083% Inhalation Nebulization Solution (Proventil) Inhale via nebulizer 1 Vial every 4 hours as needed for Wheezing or Shortness of Breath. 360 mL 11 02/25/20 Discontin ued(Refil l) Baclofen 10 MG Oral Tablet (Lioresal) Take by mouth 1 Tablet in the morning. Do not start before February 25, 2022. 30 Tablet 3 02/26/20 22 Discontin ued(Medic ation List Clean Up) Docusate Sodium 100 MG Oral Capsule (Colace) Take by mouth 1 Capsule in the morning AND 1 Capsule before bedtime. 10 Capsule 02/25/20 22 024 Discontin ued(Refil l) Lisinopril 2.5 MG Oral Tablet (Prinivil) Take by mouth 1 Tablet in the morning. Do not start before February 25, 2022. 30 Tablet 3 02/26/20 22 024 Discontin ued(Medic ation List Clean Up) Magnesium Chloride 64 MG Oral Tablet Delayed Release (Mag-64) Take by mouth 2 Tablets in the morning. Do not start before February 25, 2022. 30 Tablet 3 02/26/20 22 024 Discontin ued(Medic ation List Clean Up) Nystatin 913214 UNIT/GM External Powder (Nystop) Apply topically to affected area 2 times a day . Apply to excoriated area 15 g 02/25/20 22 Discontin ued(Medic ation List Clean Up) Ondansetron 4 MG Oral Tablet Disintegrating (Zofran) Place on tongue 1 Tablet every 8 hours as needed for Nausea (when no iv). dissolve on tongue. 20 Tablet 02/25/20 22 024 Discontin ued(Medic ation List Clean Up) Simvastatin 20 MG Oral Tablet (Zocor) Take by mouth 1 Tablet in the evening. 30 Tablet 3 02/25/20 22 024 Discontin ued(Medic ation List Clean Up) Trolamine Salicylate 10 % External Cream (Aspercreme Original) Apply to feet and toes one to two times daily 170 g 3 02/25/20 22 024 Discontin ued(Medic ation List Clean Up) Famotidine 20 MG Oral Tablet (Pepcid) Take by mouth 1 Tablet in the morning. 30 Tablet 3 02/25/20 22 024 Discontin ued(Medic ation List Clean Up) Gabapentin 300 MG Oral Capsule (Neurontin)Indicat ions:Peripheral polyneuropathy Take by mouth 1 Capsule in the morning AND 1 Capsule at noon AND 1 Capsule before bedtime. 90 Capsule 5 02/25/20 22 024 Discontin ued(Medic ation List Clean Up) Acetaminophen 325 MG Oral Tablet (Tylenol) Take by mouth 3 Tablets every 6 hours as needed for Pain, Mild or Pain, Moderate. 30 Tablet 10/11/20 22 Discontin ued(Refil l) QUEtiapine Fumarate 25 MG Oral Tablet (SEROquel) Take by mouth 0.5 Tablets before bedtime. 30 Tablet 3 02/25/20 22 Discontin ued(Medic ation List Clean Up) Polyethylene Glycol 3350 17 GM Oral Packet (Miralax) Take by mouth 1 Packet in the morning AND 1 Packet before bedtime. 14 Each 02/25/20 22 Discontin ued(Refil l) traMADol HCl 50 MG Oral Tablet (Ultram) Take by mouth 0.5 Tablets every 6 hours as needed for Pain, Moderate or Pain, Severe. 20 Tablet 02/25/20 22 Discontin ued(Medic ation List Clean Up) Eliquis 5 MG Oral Tablet Take 1 Tablet by mouth in the morning and 1 Tablet before bedtime. 60 Tablet 09/27/19 24 Discontin ued(Medic ation List Clean Up) Pantoprazole Sodium 20 MG Oral Tablet Delayed Release (Protonix) Take 1 Tablet by mouth in the morning. Discontin ued(Medic ation List Clean Up) LORazepam 0.5 MG Oral Tablet (Ativan) Take 1 Tablet by mouth every 6 hours as needed. Discontin ued(Medic ation List Clean Up) Pregabalin 100 MG Oral Capsule (Lyrica) Take 1 Capsule by mouth in the morning and 1 Capsule before bedtime. Discontin ued(Medic ation List Clean Up) Melatonin 3 MG Oral Tablet Disintegrating Take by mouth. Discontin ued(Medic ation List Clean Up) Magnesium 100 MG Oral Capsule Take 1 Capsule by mouth in the morning. Discontin ued(Medic ation List Clean Up) documented as of this encounter (statuses as of 05/02/2024) Active Problems Problem Noted Date Diagnosed Date [...] as of this encounter (statuses as of 05/02/2024) Social History Tobacco Use Types Packs/Day Years [...] encounter Miscellaneous Notes * Telephone Encounter - Awilda Mckenzie RN - 05/02/2024 1:42 PM EST Transitions of Care Note Reason for Referral:Recent Admission Phone visit for follow up: HOWIE Admitted to: [facility], Date: 04/24 Discharged to: home, Date: 05/01 Diagnosis driving hospitalization: UTI secondary to Marlene Acute confusion secondary to above Source/Contact: Authorized Functional Manager, daughter SUBJECTIVE Consent: Verbal consent for review of hospital discharge: Yes REVIEW OF SYSTEMS Patient/Other Reports: Current patient/caregiver problems or concerns: many problems, we talked through them and will address the rest at Wednesday's office visit CV: Denies problems Pulmonary: Denies problems Chills/Sweats/Fever:Denies chills/sweats Denies fever Appetite:Denies problems such as nausea, vomiting, burning, decreased appetite Current diet: as tolerated Bowel: denies problems Bladder: ostomy/indwelling catheter: ng managed by outside Urologist Wound (If applicable): N/A Pain:Denies Sleep: uses Melatonin FUNCTIONAL STATUS: ADL'S: Needs Assistance With:All ADL's as pt is completely dependent IADL'S: Needs Assistance With:Grocery Shopping, Cooking food, Routine Housework, Using telephone, Taking care of pets, Taking medications, Attending to safety, and Managing money Cognitive and Mental Health: alert and oriented x 1 objective, short-term memory loss, and difficulty with communication, understanding instructions, and processing information MEDICATION RECONCILIATION Medications: Discharge med list reviewed with patient or caregiver. Multiple changes/updates since pt has not been seen in the office for 2 year New medication(s) filled since hospitalization- amlodipine, diflucan, probiotic Discontinued medication(s) since hospitalization- lactulose, linezolid, ativan, mag 64, olanzapine,pregabalin, tramadol, trazodone Reports all medications taken as prescribed. Denies side effects OBJECTIVE ASSESSMENT Medication Risk Assessment: pt is out of multiple medications. Daughter was supposed to have gottenrefills but did not do this between dc from [facility] on 04/17 and readmission on 04/25 Did patient fail outpatient treatment? Yes Discharge instructions available for review? Yes PLAN Symptom Monitoring Interventions:Member/caregiver education - signs and symptoms to contact PrimaryCare (DO NOT DELETE-Three barrera symptoms patient is to report to PCP) 1. Worsening confusion 2. fever 3. Abdominal pain Fresh Work Wrapper LayerSenior Test Engineer of Care interventions/Action Plan: Medication reconciliation and 5 - 7 day follow-up with PCP in place - Date: 05/05 Educated on role of HOWIE completed with patient/caregiver. Educated patient/caregiver on patient right to have input on HOWIE plan of care. Verification of Home Health/DME if indicated: YES [facility] Identified Care Gaps: Yes Care Gaps closed this call: Appointment made or confirmed, Medication adherence, Post discharge appointment, Services in place, and Transition of Care follow-up communication Re-evaluation of Plan of Care and progress towards goals achievement: Patient education this visit: Sent, as above Plan to follow-up as previously scheduled, instructed to call Primary Care Provider with change in symptoms or as needed before next follow-up, discharge needs met, verbalizes understanding and agrees with plan. Awilda Mckenzie, RN * Telephone Encounter - Awilda Mckenzie RN - 05/02/2024 10:07 AM EST Transitions of Care Note Reason for Referral:Recent Admission Phone visit for follow up: HOWIE Admitted to: [facility], Date: 04/24 Discharged to: home, Date: 05/01 Diagnosis driving hospitalization: UTI secondary to Marlene Acute confusion secondary to above Attempted Phone Call First Attempt Call Outcome Unable to Leave Message If daughter calls back because she missed a call from [facility] she can be transferred to [place] at [phone]. Thank you documented in this encounter Plan of Treatment Upcoming Encounters Date Type Department Care Team (Late st Contact Info) Description 05/05/2024 11:00 AM EST Office Visit Family [facility] [address] [place] [address] Lolis Tam DO [address] [place] [address] Scheduled Procedures Name Priority Associated Diagnoses Date/Ti wa ENDOSCOPIC RETROGRADE CHOLANGIOPANCREATOGRAPHY (ERCP) DIAGNOSTIC Recall Choledocholithiasis [...] Advance Directives occurred with: Patient Care Teams Parcel Carrier Relationship Specialty Start Date End Date Lolis Tam DO [address] [facility] [place] [address] PCP - General Family Medicine 08/13/21 documented as of this encounter
--- OUTSIDE RECORDS SUMMARY | 2024-05-06 22:44 | External Medical Summary ---
Author Name Unknown Address Unknown Organization K01:[facility] [place] [address] [place] [address] Laboratory Report Ordering Provider Test Date Status RICARDO CRUZ 05/05/2024 12:16:06 Preliminary Observation Date Value Abnormality Reference (Units) Status Bacteria identified in Specimen by Culture 05/05/2024 12:16:06 Too young reincubate Preliminary Test: Culture, Urine, Quanti tative
Specimen Source: Urine, Catheter
Specimen Type: Urine
Specimen Date: 05/05/2024 1216
Result Date: 05/06/2024 1826
Result Status: Preliminary result
Resulting Lab: [facility]
[address]
[place] [address]

CULTURE

Too young reincubate

null Performing Location [facility] [place] [address] [facility] [address]
--- OUTSIDE RECORDS SUMMARY | 2024-05-06 22:44 | External Medical Summary | Summary of Care ---
Author Name Unknown Organization [facility] Address [address] [facility] [place] [address] Phone [phone] Care Team Providers Care Network Support Administrator Name Role Phone Lolis Tam DO Primary Care Provider +1- [phone] Reason for Visit * Reason Onset Date Comments Medication Refill 05/02/2024 Encounter Details Date Type Department Care Team (Late st Contact Info) Description 05/02/2024 [facility]ill [facility] [place] [address] [facility] [place] [address] Lolis Tam DO [address] [facility] [place] [address] Allergies Active Allergy Reactions Criticality Noted Date [...] mouth every 6 hours as needed. Active bisacodyl (DULCOLAX) 10 MG suppository Administer 10 mg into the rectum every 3 days. Active Vitamin B-12 100 MCG Oral Tablet (vitamin B-12) Take 1 Tablet by mouth in the morning. Active Fluconazole 100 MG Oral Tablet (Diflucan) Take 2 Tablets by mouth in the morning. 4 024 Active amLODIPine Besylate 5 MG Oral Tablet (Norvasc) Take 2 Tablets by mouth in the morning. 4 Active Acetaminophen 325 MG Oral Tablet (Tylenol)Indicat ions:Moderate pain Take 3 Tablets by mouth every 6 hours as needed for Pain, Mild or Pain, Moderate. 30 Tablet 2 4 Active Albuterol Sulfate (2.5 MG/3ML) 0.083% Inhalation Nebulization Solution (Proventil)Indic ations:Wheezing Inhale 1 Vial via nebulizer every 4 hours as needed for Wheezing or Shortness of Breath. 360 mL 11 4 Active Docusate Sodium 100 MG Oral Capsule (Colace)Indicati ons:Constipation Take 1 Capsule by mouth in the morning and 1 Capsule before bedtime. 10 Capsule 2 4 Active Polyethylene Glycol 3350 17 GM Oral Packet (Miralax)Indicat ions:Constipatio n Take 1 Packet by mouth in the morning and 1 Packet before bedtime. 14 Each 2 4 Active Albuterol Sulfate HFA 108 (90 Base) MCG/ACT Inhalation Aerosol Solution Inhale 2 Puffs by mouth every 6 hours as needed for Dyspnea. 18 g 4 Active Apixaban 2.5 MG Oral Tablet (Eliquis) Take 1 Tablet by mouth in the morning and 1 Tablet before bedtime. 60 Tablet 4 Active Atorvastatin Calcium 10 MG Oral Tablet (Lipitor) Take 1 Tablet by mouth in the morning. 30 Tablet 4 Active Citalopram Hydrobromide 20 MG Oral Tablet (CeleXA) Take 1 Tablet by mouth in the morning. 30 Tablet 4 Active Ferrous Sulfate 324 (65 Fe) MG Oral Tablet Delayed Release Take 1 Tablet by mouth daily with breakfast. 30 Tablet 4 Active Fluticasone-Salm eterol 113-14 MCG/ACT Aerosol Powder Breath Activated Inhale 1 Inhalation by mouth in the morning and 1 Inhalation in the evening. 1 Each 4 Active Melatonin 5 MG Oral Tablet Take 1 Tablet by mouth at bedtime. 30 Tablet 4 Active Pantoprazole Sodium 40 MG Oral Tablet Delayed Release (Protonix) Take 1 Tablet by mouth in the morning. 30 Tablet 4 Active Umeclidinium [place] 62.5 MCG/ACT Inhalation Aerosol Powder Breath Activated (INCRUSE ellipta) Inhale 1 Puff by mouth in the morning. 30 Each 4 Active atorvaSTATin (LIPITOR) 10 MG Tablet Take 1 Tablet by mouth in the morning. Discontin ued(Refil l) Citalopram Hydrobromide 20 MG Oral Tablet (CeleXA) Take 1 Tablet by mouth in the morning. Discontin ued(Refil l) Apixaban 2.5 MG Oral Tablet (Eliquis) Take 1 Tablet by mouth in the morning and 1 Tablet before bedtime. Discontin ued(Refil l) Albuterol Sulfate HFA 108 (90 Base) MCG/ACT Inhalation Aerosol Solution Inhale 2 Puffs by mouth every 6 hours as needed. Discontin ued(Refil l) Ferrous Sulfate 324 (65 Fe) MG Oral Tablet Delayed Release Take 1 Tablet by mouth daily with breakfast. Discontin ued(Refil l) Fluticasone-Salm eterol 113-14 MCG/ACT Aerosol Powder Breath Activated Inhale 1 Inhalation by mouth in the morning and 1 Inhalation in the evening. Discontin ued(Refil l) Melatonin 5 MG Oral Tablet Take 1 Tablet by mouth at bedtime. Discontin ued(Refil l) Pantoprazole Sodium 40 MG Oral Tablet Delayed Release (Protonix) Take 1 Tablet by mouth in the morning. Discontin ued(Refil l) Umeclidinium [place] 62.5 MCG/ACT Inhalation Aerosol Powder Breath Activated (INCRUSE ellipta) Inhale 1 Puff by mouth in the morning. Discontin ued(Refil l) documented as of this encounter (statuses as [...] of Assessment Author Yes 01/08/2022 6:38 PM EDSy Hoyos RN * Because of a physical, mental, [...] Telephone Encounter - Lolis Tam DO - 05/02/2024 3:36 PM ESTSigned Prescriptions: Disp Refills Albuterol Sulfate HFA 108 (90 Base) MCG/AC*18 g 0 Sig: Inhale 2 Puffs by mouth every 6 hours as needed for Dyspnea. Authorizing Provider: LOLIS TAM Apixaban 2.5 MG Oral Tablet (Eliquis) 60 Tab*0 Sig: Take 1 Tablet by mouth in the morning and 1 Tablet before bedtime. Authorizing Provider: LOLIS TAM Atorvastatin Calcium 10 MG Oral Tablet (Li*30 Tab*0 Sig: Take 1 Tablet by mouth in the morning. Authorizing Provider: LOLIS TAM Citalopram Hydrobromide 20 MG Oral Tablet *30 Tab*0 Sig: Take 1 Tablet by mouth in the morning. Authorizing Provider: LOLIS TAM Ferrous Sulfate 324 (65 Fe) MG Oral Tablet*30 Tab*0 Sig: Take 1 Tablet by mouth daily with breakfast. Dillon harris Provider: LOLIS TAM Fluticasone-Salmeterol 113-14 MCG/ACT Aero*1 Each 0 Sig: Inhale 1 Inhalation by mouth in the morning and 1 Inhalation in the evening. Authorizing Provider: LOLIS TAM Melatonin 5 MG Oral Tablet 30 Tab*0 Sig: Take 1 Tablet by mouth at bedtime. Authorizing Provider: LOLIS TAM Pantoprazole Sodium 40 MG Oral Tablet Betty*3 0 Tab*0 Sig: Take 1 Tablet by mouth in the morning. Authorizing Provider: LOLIS TAM Umeclidinium Delta 62.5 MCG/ACT Inhalati*30 Each0 Sig: Inhale 1 Puff by mouth in the morning. Authorizing Provider: LOLIS TAM * Telephone Encounter - Awilda Mckenzie RN - 05/02/2024 2:20 PM EST Spoke to daughter for HOWIE call and reviewed all of pts current meds. Med list has been updated. Sheneeds these 9 scripts in addition to the ones signed earlier today for her mom. Daughter is aware of Wednesday's hospital follow up visit and assured me they will show up. documented in this encounter Plan of Treatment Upcoming Encounters Date Type Department Care Team (Late st Contact Info) Description 05/05/2024 11:00 AM EST Office Visit Family [facility] [address] [place] [address] Lolis Tam DO [address] [place] [address] Scheduled Procedures Name Priority Associated Diagnoses [...] Advance Directives occurred with: Patient Care Teams Network Support Administrator Relationship Specialty Start Date End Date Lolis Tam DO [address] [facility] [place] [address] PCP - General Family Medicine 08/13/21 documented as of this encounter
--- OUTSIDE RECORDS SUMMARY | 2024-05-06 22:44 | External Medical Summary | Summary of Care ---
Author Name Unknown Organization [facility] Address [address] [facility] [place] [address] Phone [phone] Care Team Providers Care Gold Nib Grinder Name Role Phone Lolis Tam DO Primary Care Provider +1- [phone] Reason for Visit * Reason Onset Date Comments Advice 05/04/2024 [facility] Home Health Update Encounter Details Date Type Department Care Team (Late st Contact Info) Description 05/04/2024 Telephone Family Practice [address] [place] [address] Lolis Tam DO [address] [facility] [place] [address] Advice ([facility] Home Health Update) Allergies Active Allergy Reactions Criticality Noted Date [...] as of this encounter (statuses as of 05/05/2024) Medications acetaminophen (TYLENOL) 325 MG Tablet Take [...] Tablets by mouth in the morning. 4 05/09/20 24 Active amLODIPine Besylate 5 MG Oral Tablet (Norvasc) Take 2 Tablets by mouth in the morning. 4 Active Acetaminophen 325 MG Oral Tablet (Tylenol)Indicati ons:Moderate pain Take 3 Tablets by mouth every 6 hours as needed for Pain, Mild or Pain, Moderate. 30 Tablet 2 4 Active Albuterol Sulfate (2.5 MG/3ML) 0.083% Inhalation Nebulization Solution (Proventil)Indica tions:Wheezing Inhale 1 Vial via nebulizer every 4 hours as needed for Wheezing or Shortness of Breath. 360 mL 11 4 Active Docusate Sodium 100 MG Oral Capsule (Colace)Indicatio ns:Constipation Take 1 Capsule by mouth in the morning and 1 Capsule before bedtime. 10 Capsule 2 4 Active Polyethylene Glycol 3350 17 GM Oral Packet (Miralax)Indicati ons:Constipation Take 1 Packet by mouth in the [...] daily with breakfast. 30 Tablet 4 Active Fluticasone-Salme terol 113-14 MCG/ACT Aerosol Powder Breath Activated Inhale 1 Inhalation by mouth in the morning and 1 Inhalation in the evening. 1 Each 4 Active Melatonin 5 MG Oral Tablet Take 1 Tablet by mouth at bedtime. 30 Tablet 4 Active Pantoprazole Sodium 40 MG Oral Tablet Delayed Release (Protonix) Take 1 Tablet by mouth in the morning. 30 Tablet 4 Active Umeclidinium [place] 62.5 MCG/ACT Inhalation Aerosol Powder Breath Activated (INCRUSE ellipta) Inhale 1 Puff by mouth in the morning. 30 Each 4 Active documented as of this encounter (statuses as of 05/05/2024) Active Problems Problem Noted Date Diagnosed Date [...] as of this encounter (statuses as of 05/05/2024) Social History Tobacco Use Types Packs/Day Years [...] encounter Miscellaneous Notes * Telephone Encounter - Love Andrew LPN - 05/05/2024 10:21 AM EST Called number and received another business. Pt. Has an appt. Today and will address * Telephone Encounter - Sumit Mckeon OSA - 05/04/2024 1:21 PM EST [place] with [facility] Home Health is calling to ask if an aid could come in to help patient with personal care twice a week. documented in this encounter Plan of Treatment Upcoming Encounters Date Type Department Care Team (Late st Contact Info) Description 05/05/2024 11:00 AM EST Office Visit Family [facility] [address] [place] [address] Lolis Tam DO [address] [place] [address] Arrived Scheduled Procedures Name Priority Associated Diagnoses Date/Ti [...] 05/25/2020 Influenza Vaccine (FLU shot) (#1) 2024 05/12/2023, 02/19/2023, 02/21/2021, Additional history exists GFR 09/12/2024 09/13/2023, 01/2022, 02/18/2022, Additional history [...] Advance Directives occurred with: Patient Care Teams Gold Nib Grinder Relationship Specialty Start Date End Date Lolis Tam DO [address] [facility] [place] [address] PCP - General Family Medicine 08/13/21 documented as of this encounter
--- OUTSIDE RECORDS SUMMARY | 2024-05-06 22:44 | External Medical Summary | Summary of Care ---
Author Name Unknown Organization [facility] Address [address] [facility] [address] [place] [address] Phone [phone] Care Team Providers Care Marketing Operations Intern Name Role Phone Lolis Tam DO Primary Care Provider [phone]- [phone] Reason for Visit * Reason Onset Date Comments Home Health 05/02/2024 Encounter Details Date Type Department Care Team (Late st Contact Info) Description 05/02/2024 Telephone Family Practice [address] [place] [address] Lolis [facility] DO [address] [facility] [address] [facility] Allergies Active Allergy Reactions Criticality Noted Date [...] Tablets by mouth in the morning. 04/30/20 24 Active amLODIPine Besylate 5 MG Oral Tablet (Norvasc) Take 2 Tablets by mouth in the morning. 04/30/20 Active Acetaminophen 325 MG Oral Tablet (Tylenol)Indicatio ns:Moderate pain Take 3 Tablets by mouth every 6 hours as needed for Pain, Mild or Pain, Moderate. 30 Tablet 2 05/02/20 Active Albuterol Sulfate (2.5 MG/3ML) 0.083% Inhalation Nebulization Solution (Proventil)Indicat ions:Wheezing Inhale 1 Vial via nebulizer every 4 hours as needed for Wheezing or Shortness of Breath. 360 mL 11 05/02/20 Active Docusate Sodium 100 MG Oral Capsule (Colace)Indication s:Constipation Take 1 Capsule by mouth in the morning and 1 Capsule before bedtime. 10 Capsule 2 05/02/20 Active Polyethylene Glycol 3350 17 GM Oral Packet (Miralax)Indicatio ns:Constipation Take 1 Packet by mouth in the morning and 1 Packet before bedtime. 14 Each 2 05/02/20 24 Active albuterol sulfate (PROVENTIL) (2.5 MG/3ML) 0.083% [...] 12/24/19 Discontin ued(Medic ation List Clean Up) Baclofen 10 MG Oral Tablet (Lioresal) Take by mouth 1 Tablet in the morning. Do not start before February 25, 2022. 30 Tablet 3 02/26/20 22 Discontin ued(Medic ation List Clean Up) Lisinopril 2.5 MG Oral Tablet (Prinivil) Take by mouth 1 Tablet in the morning. Do not start before February 25, 2022. 30 Tablet 3 02/26/20 22 Discontin ued(Medic ation List Clean Up) Magnesium Chloride 64 MG Oral Tablet Delayed Release (Mag-64) Take by mouth 2 Tablets in the morning. Do not start before February 25, 2022. 30 Tablet 3 02/26/20 22 024 Discontin ued(Medic ation List Clean Up) Nystatin 952924 UNIT/GM External Powder (Nystop) Apply topically to affected area 2 times a day . Apply to excoriated area 15 g 02/25/20 22 024 Discontin ued(Medic ation List Clean Up) Ondansetron [...] 024 Discontin ued(Medic ation List Clean Up) QUEtiapine Fumarate 25 MG Oral Tablet (SEROquel) Take by mouth 0.5 Tablets before bedtime. 30 Tablet 3 02/25/20 22 024 Discontin ued(Medic ation List Clean Up) traMADol HCl 50 MG Oral Tablet (Ultram) Take by mouth 0.5 Tablets every 6 hours as needed for Pain, Moderate or Pain, Severe. 20 Tablet 02/25/20 22 024 Discontin ued(Medic ation List Clean Up) Eliquis [...] Date Author No 01/08/2022 6:38 PM Sy aRmos RN documented in this encounter Miscellaneous Notes * Telephone Encounter - Awilda Mckenzie RN - 05/02/2024 2:39 PM EST Reviewed message with daughter when doing HOWIE call and she expressed understanding * Telephone Encounter - Tanja Tsai LPN - 05/02/2024 1:49 PM EST Updated home nursing, verbalized understanding and said it would be fine to wait til after pt evaluated. * Telephone Encounter - Lolis Tam DO - 05/02/2024 1:28 PM EST I have not seen patient since 2021 Will not sign orders until pt is seen at upcoming appt Will address referral at that time * Telephone Encounter - Fawn Aldana LPN - 05/02/2024 12:52 PM EST HH Admission/Start of Care Admission/Start of Care: Halie CHAU, Calling from: [facility] Patient was Admitted to: [facility], for: altered mental status, UTI from 04/24/24 to 05/01 Referral ordered by: [facility] Referral received for: Snf, PT, and OT Planned start of care date:Yes, Date 05/02/24 Start of care completed on: 05/02/24 Report/Concerns of: 8 out of 10 pain in both feet Symptoms: neuropathy Vitals: T 98.0 P 91 RR 18 BP 130/96 SP O2 93 on room air. On 2 lpm prn up to 96 Lung sounds clear Weight n/a Blood sugar 177 before bedtime. Didn't check it in the morning. Narrative: Halie CHAU, calling from [facility]. Patient complaining of pain in her feet. Rates them as an 8 out of 10. Daughter asking for neurology consult for the neuropathy in her feet. Patient has had an extended [facility] visit and then was brought home. Next PT visit(s) on end of the week They will call with any updates or additional concerns from the upcoming HH visit. Last Office Visit: 11/27/2021 Has patient been scheduled or seen in the office for a follow up visit: 05/05/24 Advised that orders will be signed by Dr. Tam and to fax to the office for signature. Call back Halie with advice or orders at [phone] Please fax orders to [facility] Home Health documented in this encounter Plan of Treatment Upcoming Encounters Date Type Department Care Team (Late st Contact Info) Description 05/05/2024 11:00 AM EST Office Visit [facility] [address] [place] [phone] Lolis Tam DO [address] [place] [address] Scheduled Procedures Name Priority Associated Diagnoses [...] Advance Directives occurred with: Patient Care Teams Marketing Operations Intern Relationship Specialty Start Date End Date Lolis Tam DO [address] [facility] [place] [address] PCP - General Family Medicine 08/13/21 documented as of this encounter
--- OUTSIDE RECORDS SUMMARY | 2024-05-06 22:44 | External Medical Summary | Summary of Care ---
Author Name Unknown Organization [facility] Address [address] [facility] [address] Phone [phone] Care Team Providers Care Inbound Customer Service Representative Name Role Phone Lolis Tam DO Primary Care Provider [phone]- [phone] Reason for Visit * Reason Onset Date Comments Home Health 05/05/2024 Encounter Details Date Type Department Care Team (Late st Contact Info) Description 05/05/2024 Telephone Family Practice [place] [address] [address] [place] [address] [facility] [address] [facility] [address] [facility] Allergies Active Allergy Reactions [...] Medications acetaminophen (TYLENOL) 325 MG Tablet Take 1 Tablet by mouth every 6 hours as needed. Active bisacodyl (DULCOLAX) 10 MG suppository Administer 1 Suppository into the rectum every 3 days. Active Vitamin B-12 100 MCG Oral Tablet (vitamin B-12) Take 1 Tablet by mouth in the morning. Active Fluconazole 100 MG Oral Tablet (Diflucan) Take 2 Tablets by mouth in the morning. 04/30/20 024 Active amLODIPine Besylate 5 MG Oral [...] Packet before bedtime. 14 Each 2 05/02/20 Active Albuterol Sulfate HFA 108 (90 Base) MCG/ACT Inhalation Aerosol Solution Inhale 2 Puffs by mouth every 6 hours as needed for Dyspnea. 18 g 05/02/20 Active Apixaban 2.5 MG Oral Tablet (Eliquis) Take 1 Tablet by mouth in the morning and 1 Tablet before bedtime. 60 Tablet 05/02/20 Active Atorvastatin Calcium 10 MG Oral Tablet (Lipitor) Take 1 Tablet by mouth in the morning. 30 Tablet 05/02/20 Active Citalopram Hydrobromide 20 MG Oral Tablet (CeleXA) Take 1 Tablet by mouth in the morning. 30 Tablet 05/02/20 Active Ferrous Sulfate 324 (65 Fe) MG Oral Tablet Delayed Release Take 1 Tablet by mouth daily with breakfast. 30 Tablet 05/02/20 24 Active Fluticasone-Salmet tamanna 113-14 MCG/ACT Aerosol Powder Breath Activated Inhale 1 Inhalation by mouth in the morning and 1 Inhalation in the evening. 1 Each 05/02/20 Active Melatonin 5 MG Oral Tablet Take 1 Tablet by mouth at bedtime. 30 Tablet 05/02/20 Active Pantoprazole Sodium 40 MG Oral Tablet Delayed Release (Protonix) Take 1 Tablet by mouth in the morning. 30 Tablet 05/02/20 Active Umeclidinium [employer] 62.5 MCG/ACT Inhalation Aerosol Powder Breath Activated (INCRUSE ellipta) Inhale 1 Puff by mouth in the morning. 30 Each 05/02/20 Active DULoxetine HCl 30 MG Oral Capsule Delayed Release Particles (Cymbalta)Indicati ons:Peripheral polyneuropathy Take 1 Capsule by mouth in the morning. Do not cut, crush or chew. 30 Capsule 2 05/05/20 Active Ciprofloxacin HCl 250 MG Oral Tablet (Cipro)Indications :UTI symptoms Take 1 Tablet by mouth in the morning and 1 Tablet before bedtime. Do all this for 10 days. 20 Tablet 05/05/20 24 024 Active documented as of this encounter (statuses as of 05/05/2024) Active Problems Problem Noted Date Diagnosed Date CLL (chronic lymphocytic leukemia) 05/05/2024 Hemiplegia, post-stroke 05/05/2024 Type 2 diabetes mellitus wit h hemoglobin A1c goal of less than 7.0% 05/05/2024 Acute cystitis without hematuria 02/16/2022 Other constipation 01/15/2022 Unable to care for self 01/08/2022 Bedridden 01/08/2022 H/O deep vein thrombophlebitis of lower extremit y 01/08/2022 Cerebrovascular disease, arteriosclerotic, post- stroke 11/27/2021 Peripheral polyneuropathy 11/27/2021 Tobacco use disorder 07/27/2007 Abnormal results of liver function studies 11/15 Esophageal reflux 07/15/2006 Dyslipidemia, goal to be determined HTN, goal below 140/90 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 documented as of this encounter (statuses as of 05/05/2024) Resolved Problems Problem Noted Date Diagnosed Date Resolved Date COVID-19 02/04/2022 05/05/2024 Chest pain 01/08/2022 05/05/2024 Lower leg DVT (deep venous t hromboembolism), acute, left 06/18/2021 05/05/2024 documented as of this encounter (statuses as of 05/05/2024) Social History Tobacco Use Types Packs/Day Years Used Date Smoking Tobacco: Former Cigarettes 0.5 20 Smokeless Tobacco: Never Comments:2013 quit Alcohol Use Standard Drinks/Week Comments No 0 (1 standard drink = 0.6 oz pur e alcohol) Comments No Sex and Gender Information Value [...] encounter Miscellaneous Notes * Telephone Encounter - Lynette Reyes LPN - 05/05/2024 2:15 PM EST HH Concerns TR, Clinical Forepart Rounder, Calling from: [facility] Report/Concerns of: Lab collection date Narrative: TR calling in as they received labs with collection date of 05/05, they do not have a nurse going out to see patient until 05/08, he is forwarding to pcp for signature for date change. [facility] HH documented in this encounter Plan of Treatment Upcoming Encounters Date Type Department Care Team (Late st Contact Info) Description 09/11/2024 1:00 PM EDT Office Visit [facility] [address] [place] [address] Lolis Tam DO [address] [place] [address] Scheduled Procedures Name Priority Associated Diagnoses Date/Ti me ENDOSCOPIC RETROGRADE CHOLANGIOPANCREATOGRAPHY (ERCP) DIAGNOSTIC Recall Choledocholithiasis Health Maintenance Due Date Last Done Comments DXA Scan 1942 Depression Screening 1954 Albumin/Creatinine Ratio 1960 Alpha-1 Antitrypsin 1960 Diabetic Eye Exam 1960 Diabetic Foot Exam 1960 DTap/Tdap Vaccines (1 - Tdap) 1961 Zoster Vaccines (1 of 2) 1961 Adult Wellness Visit 2008 *COPD SEVERITY VERIFIED BY PFT 08/02/2021 HbA1c 04/04/2022 10/02/2021, 06/20/2021 *SPIROMETRY ONCE FOR ASTHMA-ADULT 04/09/2022 COVID-19 Vaccine ( season) 2024 03/26/2021, 06/15/2020, 05/25/2020 Influenza Vaccine (FLU shot) (#1) 2024 05/12/2023, 02/19/2023, 02/21/2021, Additional history exists GFR 09/12/2024 09/13/2023, 2022, 02/18/2022, Additional history exists O2 ASSESSMENT COMPLETED IN PAST YEAR FOR COPD 05/05/2025 05/05/2024 Pneumococcal Vaccine: 65+ Years Completed 05/12/2023, 09/30/2022, [...] Advance Directives occurred with: Patient Care Teams Inbound Customer Service Representative Relationship Specialty Start Date End Date Lolis Tam DO [address] [facility] [place] [address] PCP - General Family Medicine 08/13/21 documented as of this encounter
--- OUTSIDE RECORDS SUMMARY | 2024-05-06 22:44 | External Medical Summary | Summary of Care ---
Author Name Unknown Organization [facility] Address [address] [place] [facility] [place] [address] Phone [phone] Care Team Providers Care Music Agent Name Role Phone Lolis Tam DO Primary Care Provider +1- [phone] Reason for Visit * Reason Onset Date Comments Medication Refill 05/02/2024 Encounter Details Date Type Department Care Team (Late st Contact Info) Description [facility] [address] [facility] [place] [phone] Lolis Tam DO [address] [facility] [address] Constipation*; Wheezing; Moderate pain Allergies Active Allergy Reactions Criticality Noted Date [...] Shortness of Breath. 360 mL 11 05/02/20 24 Active Docusate Sodium 100 MG Oral Capsule (Colace)Indication s:Constipation Take 1 Capsule by mouth in the morning and 1 Capsule before bedtime. 10 Capsule 2 05/02/20 24 Active Polyethylene Glycol 3350 17 GM Oral [...] the morning and 1 Tablet before bedtime. 12/17/2 024 Discontin ued(Medic ation List Clean Up) lisinopril [...] Discontin ued(Medic ation List Clean Up) Nystatin 875558 UNIT/GM External Powder (Nystop) Apply topically to [...] Mild or Pain, Moderate. 30 Tablet 02/25/20 22 Discontin ued(Refil l) QUEtiapine Fumarate 25 [...] of Assessment Author Yes 01/08/2022 6:38 PM EDT Sy Singh RN * Do you have difficulty dressing or bathing? (5 years old or older) Answer Date of Assessment Author Yes 01/08/2022 6:38 PM EDT Sy Singh RN * Because of a physical, mental, or emotional condition, do you have difficulty doing errands alone such as visiting a doctors office or shopping? (15 years old or older) Answer Date of Assessment Author No 01/08/2022 6:38 PM EDSy Hoyos RN documented as of this encounter Mental Status * Because of a physical, mental, or emotional condition, do you have serious difficulty concentrating, remembering, or making decisions? (5 years old or older) Answer Entry Date Author No 01/08/2022 6:38 PM Sy Ramos RN documented in this encounter Miscellaneous Notes * Addendum Note - Indy Bacon RN - 05/02/2024 2:18 PM ESTAddended by: INDY BACON on: 05/02/2024 02:18 PM Modules accepted: Orders * Telephone Encounter - Marisabel Patrick PA-C - 05/02/2024 10:22 AM EST Signed Prescriptions: Disp Refills Acetaminophen 325 MG Oral Tablet (Tylenol) 30 Tab*2 Sig: Take 3 Tablets by mouth every 6 hours as needed for Pain, Mild or Pain, Moderate.Authorizing Provider: MARISABEL PATRICK Albuterol Sulfate (2.5 MG/3ML) 0.083% Inha*360 mL 11 Sig: Inhale 1 Vial via nebulizer every 4 hours as needed for Wheezing or Shortness of Breath.Authorizing Provider: MARISABEL QUEVEDO Docusate Sodium 100 MG Oral Capsule (Colac*10 Cap*2 Sig: Take 1 Capsule by mouth in the morning and 1 Capsule before bedtime.Authorizing Provider: MARISABEL PATRICK Polyethylene Glycol 3350 17 GM Oral Packet*14 Each2 Sig: Take 1 Packet by mouth in the morning and 1 Packet before bedtime.Authorizing Provider: MARISABEL PATRICK * Telephone Encounter - Sharee Hopson CCMA - 05/02/2024 10:21 AM ESTPending Prescriptions: Disp Refills Acetaminophen 325 MG Oral Tablet (Tylenol) 30 Tab*2 Sig: Take 3 Tablets by mouth every 6 hours as needed for Pain, Mild or Pain, Moderate. Albuterol Sulfate (2.5 MG/3ML) 0.083% Inha*360 mL 11 Sig: Inhale 1 Vial via nebulizer every 4 hours as needed for Wheezing or Shortness of Breath. Docusate Sodium 100 MG Oral Capsule (C olac*10 Cap*2 Sig: Take 1 Capsule by mouth in the morning and 1 Capsule before bedtime. Polyethylene Glycol 3350 17 GM Oral Packet*14 Each2 Sig: Take 1 Packet by mouth in the morning and 1 Packet before bedtime. * Telephone Encounter - Sharee Hopson CCMA - 05/02/2024 10:18 AM EST Please advise on pt med refill request, pt is here for hospital f/u on 05/05. Pended if appropriate Pending Prescriptions: Disp Refills Acetaminophen 325 MG Oral Tablet (Tylenol)30 Tab*2 Sig: Take 3 Tablets by mouth every 6 hours as needed for Pain, Mild or Pain, Moderate. Albuterol Sulfate (2.5 MG/3ML) 0.083% Inh*360 mL 11 Sig: Inhale 1 Vial via nebulizer every 4 hours as needed for Wheezing or Shortness of Breath. Docusate Sodium 100 MG Oral Capsule (Cola*10 Cap*2 Sig: Take 1 Capsule by mouth in the morning and 1 Capsule before bedtime. Polyethylene Glycol 3350 17 GM Oral Packe*14 Each2 Sig: Take 1 Packet by mouth in the morning and 1 Packet before bedtime. 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 Esophageal reflux Abnormal results of liver function studies Tobacco use disorder Cerebrovascular disease, arteriosclerotic, post-stroke Peripheral polyneuropathy Unable to care for self Bedridden H/O deep vein thrombophlebitis of lower extremity Chest pain Lower leg DVT (deep venous thromboembolism), acute, left (HCC) Other constipation COVID-19 Acute cystitis without hematuria Labs: Lab Results Component Value Date/Time CREATININE - [facility] 0.56 (A) 09/13/2023 12:00 AM CREATININE - [facility] 0.66 (L) 10/20/2021 03:00 PM CREATININE - [facility] 0.7 07/28/2007 11:50 AM Lab Results Component Value Date/Time POTASSIUM - [facility] 4.2 09/13/2023 12:00 AM POTASSIUM - [facility] 3.9 10/20/2021 03:00 PM POTASSIUM - [facility] 4.6 07/28/2007 11:50 AM No results found for: "TSH" Lab Results Component Value Date/Time LDL (CALCULATED)-OUTSIDE LAB 90 12/01/2021 12:00 AM LDL CHOLESTEROL (CALCULATED) - [facility] UNINTERPRETABLE RESULT 07/28/2007 11:50 AM LDL CHOLESTEROL (CALCULATED) - [facility] 129 (H) 03/17/2007 10:24 AM LDL CHOLESTEROL-OUTSIDE LAB 143 10/20/2021 03:00 PM Lab Results Component Value Date/Time ALT - [facility] 32 02/22/2022 09:22 AM ALT - [facility] 32 07/28/2007 11:50 AM Hemoglobin AIC Results: No results found for: "HEMOGLOBIN A1C" * Telephone Encounter - Lorraine Nunes cello teacher - 05/02/2024 9:59 AM EST Pt was in [facility] - and now is released Pt daughter has a list of medications pt is suppose to be on She is asking for refill before discharge appt In addition to pended meds she also wants She could not read the directions too well atorvaSTATin (LIPITOR) 10 MG Tablet - take one a day bisacodyl (DULCOLAX) 10 MG suppository Citalopram Hydrobromide 20 MG Oral Tablet (CeleXA) take one a day Melatonin 3 MG Oral Tablet Disintegrating Pantoprazole Sodium 20 MG Oral Tablet Delayed Release (Protoni Vitamin B-12 100 MCG Oral Tablet (vitamin B-12) Fluticasone Propionate Fluticasone Salmeterol Umeclidinium Diclofenac Sodium tablet - take one a day Ferrous Sulfate - take one a day Amlodipine 10 mg - take one a day Probiotic - take one a day Please advise Thank you for your assistance Lorraine Nunes Equities Analyst II [facility] 05/02/2024,10:13 AM documented in this encounter Plan of Treatment Upcoming Encounters Date Type Department Care Team (Late st Contact Info) Description 05/05/2024 11:00 AM EST Office Visit Family [facility] [address] [place] [phone] Lolis Tam DO [address] [place] [address] Scheduled Procedures Name Priority Associated Diagnoses Date/Ti [...] Not on filedocumented as of this encounter Visit Diagnoses Diagnosis Constipation- Primary Unspecified constipation Wheezing Moderate pain documented in this encounter Advance Directives * Full Code (Latest Code Status on File) Date Activated Date Inactivated Comments 01/08/2022 6:10 PM 02/24/2022 6:34 PM This order reflects the patients wishes and were consensually agreed upon. Question Answer Comments Discussion of Advance Directives occurred with: Patient Care Teams Music Agent Relationship Specialty Start Date End Date Lolis Tam DO [address] [facility] [place] [address] PCP - General Family Medicine 08/13/21 documented as of this encounter
--- OUTSIDE RECORDS SUMMARY | 2024-05-06 22:44 | External Medical Summary ---
Author Name Unknown Address Unknown Organization : Laboratory Report Ordering Provider Test Date Status RICARDO CRUZ 05/05/2024 11:53:00 Final Observation Date Value Abnormality Reference (Units ) Status Color of Urine by Auto 05/05/2024 11:53:00 Dark Yellow Abnormal Light Yellow, Yellow Final Clarity, Urine 05/05/2024 11:53:00 Cloudy Abnormal Clear Final Glucose [Mass/volume] in Urine by Automated test strip 05/05/2024 11:53:00 Negative Negative (mg/dL) Final Bilirubin.total [Presence] in Urine by Automated test strip 05/05/2024 11:53:00 Small Abnormal Negative Final Ketones [Mass/volume] in Urine by Automated test strip 05/05/2024 11:53:00 Trace Abnormal Negative (mg/dL) Final Specific gravity, Urine 05/05/2024 11:53:00 1.025 1.003-1.030 Final Hemoglobin [Presence] in Urine by Automated test strip 05/05/2024 11:53:00 Large Abnormal Negative Final pH, Urine 05/05/2024 11:53:00 5.5 5.0, 5.5, 6.0, 6.5, 7.0, 7.5 (units) Final Protein [Mass/volume] in Urine by Automated test strip 05/05/2024 11:53:00 >=300 Abnormal Negative (mg/dL) Final Urobilinogen, Urine 05/05/2024 11:53:00 0.2 0.2, 1.0 (mg/dL) Final Nitrite [Presence] in Urine by Automated test strip 05/05/2024 11:53:00 Negative Negative Final Leukocyte esterase [Presence] in Urine by Automated test strip 05/05/2024 11:53:00 Large Abnormal Negative Final Performing Location
--- OUTSIDE RECORDS SUMMARY | 2024-05-06 22:44 | External Medical Summary | Summary of Care ---
Author Name Unknown Organization [facility] Address [address] [place] [address] Phone [phone] Care Team Providers Care Family Life Educator Name Role Phone Lolis Tam DO Primary Care Provider +1- [phone] Encounter Details Date Type Department Care Team (Late st Contact Info) Description 05/05/2024 Referral Triage Care Coordination and Integration [address] [place] [address] Analisa Bobo OSA [address], [place] [id number] Allergies Active Allergy Reactions Criticality Noted Date [...] 1 Tablet before bedtime. 60 Tablet 05/02/20 24 Active Atorvastatin Calcium 10 MG Oral Tablet (Lipitor) Take 1 Tablet by mouth in the morning. 30 Tablet 05/02/20 24 Active Citalopram Hydrobromide 20 MG Oral Tablet [...] mouth in the morning. 30 Tablet 05/02/20 24 Active Umeclidinium [place] 62.5 MCG/ACT Inhalation Aerosol Powder Breath Activated (INCRUSE ellipta) Inhale 1 Puff by mouth in the morning. 30 Each 05/02/20 24 Active DULoxetine HCl 30 MG Oral Capsule [...] Sy Ramos RN documented in this encounter Progress Notes * Analisa Bobo OSA - 05/05/2024 12:29 PM EST Per an [id number] Referral Workqueues [facility]-Level2&3 Referrals ([id number]) this member was openedand assigned to a CM for the below reason: Number of Visits Requested: 999 Associated Diagnosis: Hospital discharge follow-up (Z09) Acute cystitis without hematuria (N30.00) UTI symptoms (R39.9) Cerebrovascular disease, arteriosclerotic, post-stroke (I67.2,Z86.73) Hemiplegia, post-stroke (HCC) (I69.359) Bedridden (Z74.01) H/O deep vein thrombophlebitis of lower extremity (Z86.72) CLL (chronic lymphocytic leukemia) (HCC) (C91.10) Peripheral polyneuropathy (G62.9) Type 2 diabetes mellitus with hemoglobin A1c goal of less than 7.0% (HCC) (E11.9) Problem/Desired Service from Front Desk Representative: Is patient being transitioned from [facility] to Complex Case Management? No Order Specific Questions: Referral Priority: Within 10 days (routine) Where should this appointment be scheduled? [facility] Role: Supervisor Records Change Supervisor Records Change Referral Reason: Frail Elderly Supervisor Records Change Referral Reason: Transition of Care (HOWIE)/High Risk for Readmission Supervisor Records Change Referral Reason: High Utilizer/Patient This was opened and assigned to Ana Ochoa based on MRN Assignment on the NSL documented in this encounter Plan of Treatment Upcoming Encounters Date Type Department Care Team (Late st Contact Info) Description 09/11/2024 1:00 PM EDT Office Visit [facility] [address] [place] [address] Lolis Tam DO [address] [place] [address] Scheduled Procedures Name Priority Associated Diagnoses Date/Ti [...] 09/12/2024 09/13/2023, 01/2022, 02/18/2022, Additional history exists O2 ASSESSMENT COMPLETED [...] Advance Directives occurred with: Patient Care Teams Family Life Educator Relationship Specialty Start Date End Date Lolis Tam DO [address] [facility] [place] [address] PCP - General Family Medicine 08/13/21 documented as of this encounter
--- OUTSIDE RECORDS SUMMARY | 2024-05-06 22:45 | External Medical Summary | Summary of Care ---
Author Name Unknown Organization [facility] Address [address] [facility] [place] [address] Phone [phone] Care Team Providers Care School Examiner Name Role Phone Lolis Tam DO Primary Care Provider +1- [phone] Reason for Visit * Reason Onset Date Comments Home Health 05/02/2024 Encounter Details Date Type Department Care Team (Late st Contact Info) Description 05/02/2024 Telephone Family Practice [place] Tima Gallegos [address] [place] [address] [facility]olis [facility] [address] [facility] [address] [facility] Allergies Active Allergy [...] Discontin ued(Medic ation List Clean Up) Nystatin 618996 UNIT/GM External Powder (Nystop) Apply topically to [...] encounter Miscellaneous Notes * Telephone Encounter - Tanja Tsai LPN [...] Aldana LPN - 05/02/2024 12:52 PM EST Admission/Start of Care Admission/Start of Care: Halie CHAU, Calling from: [facility] Patient was Admitted to: [facility], for: altered mental status, UTI from 04/24/24 to 05/01 Referral ordered by: [facility] Referral received for: Nursing Home, PT, and OT Planned start of care [...] the morning. Narrative: Halie CHAU, calling from [facility]. Patient complaining of pain in her feet. Rates them as an 8 out of 10. Daughter asking for neurology consult for the neuropathy in her feet. Patient has had an extended assisted visit and then was brought home. Next [...] back Halie with advice or orders at [phone] Please fax orders to [facility] Home Health documented in this encounter Plan of Treatment Upcoming Encounters Date Type Department Care Team (Late st Contact Info) Description 05/05/2024 11:00 AM EST [facility] [address] [place] [address] Lolis Tam DO [address] [place] [address] Scheduled Procedures Name Priority [...] Advance Directives occurred with: Patient Care Teams School Examiner Relationship Specialty Start Date End Date Lolis Tam DO [address] [facility] [place] [address] PCP - General Family Medicine 08/13/21 documented as of this encounter
--- OUTSIDE RECORDS SUMMARY | 2024-05-06 22:45 | External Medical Summary | Summary of Care ---
Author Name Unknown Organization [facility] Address [address] [place] [facility] [place] [address] Phone [phone] Care Team Providers Care Bull Float Finisher Name Role Phone Lolis Tam DO Primary Care Provider +1- [phone] Reason for Visit * Reason Onset Date Comments Medication Refill 05/02/2024 Encounter Details Date Type Department Care Team (Late st Contact Info) Description [facility] [address] [facility] [place] [id number] Lolis Tam DO [address] [facility] [place] [address] Constipation*; Wheezing; Moderate pain Allergies Active [...] Discontin ued(Medic ation List Clean Up) Nystatin 290319 UNIT/GM External Powder (Nystop) Apply topically to [...] A1C" * Telephone Encounter - Lorraine Nunes terminal gauger supervisor - 05/02/2024 9:59 AM EST Pt was in [facility] - and now is released Pt [...] Thank you for your assistance Lorraine Nunes Academic Advising Director II [facility] ([facility]) 05/02/2024,10:13 AM documented in this encounter Plan of Treatment Upcoming Encounters Date Type Department Care Team (Late st Contact Info) Description 05/05/2024 11:00 AM EST Office Visit Family [facility] Tima Gallegos [address] [place] [phone] Lolis Tam DO [address] [place] [address] Scheduled Procedures Name Priority Associated Diagnoses Date/Ti [...] Advance Directives occurred with: Patient Care Teams Bull Float Finisher Relationship Specialty Start Date End Date Lolis Tam DO [address] [facility] [place] [address] PCP - General Family Medicine 08/13/21 documented as of this encounter
--- OUTSIDE RECORDS SUMMARY | 2024-05-06 22:45 | External Medical Summary | Summary of Care ---
Author Name Unknown Organization [facility] Address [address] [facility] [place] [address] Phone [phone] Care Team Providers Care Dialysis Chief Equipment Technician Name Role Phone Lolis Tam DO Primary Care Provider +1- [phone] Reason for Visit * Reason Onset Date Comments Home Health 05/02/2024 Encounter Details Date Type Department Care Team (Late st Contact Info) Description 05/02/2024 Telephone Family Practice [place] Tima Gallegos [address] [place] [address] Lolis Tam DO [address] [facility] [address] [facility] Allergies Active Allergy [...] Wednesday only . 42.5 g 12 12/24/19 Active Baclofen 10 MG Oral Tablet (Lioresal) Take by mouth 1 Tablet in the morning. Do not start before February 25, 2022. 30 Tablet 3 02/26/20 Active Additional Information Patient not taking.Reported on 09/28/2023 Lisinopril 2.5 MG Oral Tablet (Prinivil) Take by mouth 1 Tablet in the morning. Do not start before February 25, 2022. 30 Tablet 3 02/26/20 Active Magnesium Chloride 64 MG Oral Tablet Delayed Release (Mag-64) Take by mouth 2 Tablets in the morning. Do not start before February 25, 2022. 30 Tablet 3 02/26/20 Active Nystatin 130500 UNIT/GM External Powder (Nystop) Apply topically to [...] before bedtime. 90 Capsule 5 02/25/20 Active QUEtiapine Fumarate 25 MG Oral Tablet (SEROquel) Take by mouth 0.5 Tablets before bedtime. 30 Tablet 3 02/25/20 Active traMADol HCl 50 MG Oral [...] Capsule by mouth in the morning. Active Fluconazole 100 MG Oral Tablet (Diflucan) Take 2 Tablets by mouth in the morning. 04/30/20 24 024 Active amLODIPine Besylate 5 MG Oral [...] before bedtime. 14 Each 2 05/02/20 Active documented as of this encounter (statuses [...] Admission/Start of Care: Halie CHAU, Calling from: [facility] Patient was Admitted to: [facility], for: altered mental status, UTI from 04/24/24 to 05/01 Referral ordered by: [facility] Referral received for: Retirement, PT, and OT Planned start of care [...] the morning. Narrative: Halie CHAU, calling from [facility]. Patient complaining of pain in her feet. Rates them as an 8 out of 10. Daughter asking for neurology consult for the neuropathy in her feet. Patient has had an extended intermediate visit and then was brought home. Next [...] back Halie with advice or orders at [phone] Please fax orders to [facility] Home Health documented in this encounter Plan of Treatment Upcoming Encounters Date Type Department Care Team (Late st Contact Info) Description 05/05/2024 11:00 AM EST Office Visit Family [facility] [address] [place] [address] Lolis Tam DO [address] [place] [address] Scheduled Procedures Name Priority [...] Advance Directives occurred with: Patient Care Teams Dialysis Chief Equipment Technician Relationship Specialty Start Date End Date Lolis Tam DO [address] [facility] [place] [address] PCP - General Family Medicine 08/13/21 documented as of this encounter
--- OUTSIDE RECORDS SUMMARY | 2024-05-06 22:45 | External Medical Summary | Summary of Care ---
Author Name Unknown Organization [facility] Address [address] [place] [facility] [address] Phone [phone] Care Team Providers Care Door To Door Selling Agent Name Role Phone Lolis Tam DO Primary Care Provider +1- [phone] Reason for Visit * Reason Onset Date Comments Medication Refill 05/02/2024 Encounter Details Date Type Department Care Team (Late st Contact Info) Description [facility] [facility] [place] [phone] Lolis Tam DO [address] [facility] [place] [address] Constipation*; Wheezing; Moderate pain Allergies Active [...] 2022. 30 Tablet 3 02/26/20 Active Nystatin 894003 UNIT/GM External Powder (Nystop) Apply topically to [...] mouth in the morning. 04/30/20 24 Active Acetaminophen 325 MG Oral Tablet (Tylenol)Indicatio ns:Moderate pain Take 3 Tablets by mouth every 6 hours as needed for Pain, Mild or Pain, Moderate. 30 Tablet 2 05/02/20 24 Active Albuterol Sulfate (2.5 MG/3ML) 0.083% Inhalation [...] bedtime. 14 Each 2 05/02/20 24 Active Albuterol Sulfate (2.5 MG/3ML) 0.083% Inhalation Nebulization Solution (Proventil) Inhale via nebulizer 1 Vial every 4 hours as needed for Wheezing or Shortness of Breath. 360 mL 11 02/25/20 22 024 Discontin ued(Refil l) Docusate Sodium 100 MG Oral Capsule (Colace) Take by mouth 1 Capsule in the morning AND 1 Capsule before bedtime. 10 Capsule 02/25/20 22 024 Discontin ued(Refil l) Acetaminophen 325 MG Oral Tablet (Tylenol) Take by mouth 3 Tablets every 6 hours as needed for Pain, Mild or Pain, Moderate. 30 Tablet 02/25/20 22 024 Discontin ued(Refil l) Polyethylene Glycol 3350 17 GM Oral Packet (Miralax) Take by mouth 1 Packet in the morning AND 1 Packet before bedtime. 14 Each 02/25/20 22 024 Discontin ued(Refil l) documented as of this [...] of Assessment Author No 01/08/2022 6:38 PM yS Ramos RN * Are you blind or [...] encounter Miscellaneous Notes * Telephone Encounter - Marisabel [place] PA-C [...] Wheezing or Shortness of Breath.Authorizing Provider: MARISABEL QEUVEDO Docusate Sodium 100 MG Oral Capsule (Colac*10 [...] A1C" * Telephone Encounter - Lorraine Nunes PHARM Tech - 05/02/2024 9:59 AM EST Pt was in [facility] - and now is released Pt daughter [...] Thank you for your assistance Lorraine Nunes Intermediate Accountant II [facility] ([facility]) 05/02/2024,10:13 AM documented in this encounter Plan of Treatment Upcoming Encounters Date Type Department Care Team (Late st Contact Info) Description 05/05/2024 11:00 AM EST Office Visit Family [facility] [address] [place] [address] Lolis Tam DO [address] [place] [address] Scheduled Procedures Name Priority Associated Diagnoses Date/Ti [...] Advance Directives occurred with: Patient Care Teams Door To Door Selling Agent Relationship Specialty Start Date End Date Lolis Tam DO [address] [facility] [place] [address] PCP - General Family Medicine 08/13/21 documented as of this encounter
--- OUTSIDE RECORDS SUMMARY | 2024-05-06 22:45 | External Medical Summary | Summary of Care ---
Author Name Unknown Organization [facility] Address [address] [facility] [place] [address] Phone [phone] Care Team Providers Care Commercial Real Estate Attorney Name Role Phone Lolis Tam DO Primary Care Provider +1- [phone] Reason for Visit * Reason Onset Date Comments Home Health 05/02/2024 Encounter Details Date Type Department Care Team (Late st Contact Info) Description 05/02/2024 Telephone Family Practice [place] Tima Gallegos [address] [place] [address] Lolis [facility] [address] [facility] [address] [facility] Allergies Active Allergy [...] 2022. 30 Tablet 3 02/26/20 Active Nystatin 821406 UNIT/GM External Powder (Nystop) Apply topically to [...] after pt evaluated. * Telephone Encounter - Loils Tam DO - 05/02/2024 1:28 PM EST I have not seen patient since 2021 Will not sign orders until pt is seen at upcoming appt Will address referral at that time * Telephone Encounter - Fawn Aldana LPN - 05/02/2024 12:52 PM EST HH Admission/Start of Care Admission/Start of Care: Halie CHAU, Calling from: [facility] Patient was Admitted to: [facility], for: altered mental status, UTI from 04/24/24 to 05/01 Referral ordered by: [facility] Referral received for: Snf, PT, and OT [...] the morning. Narrative: Halie CHAU, calling from [facility]. Patient complaining of pain in her feet. Rates them as an 8 out of 10. Daughter asking for neurology consult for the neuropathy in her feet. Patient has had an extended alf visit and then was brought home. Next [...] back Halie with advice or orders at [phone] Please fax orders to [facility] Home Health documented in this encounter Plan of Treatment Upcoming Encounters Date Type Department Care Team (Late st Contact Info) Description 05/05/2024 11:00 AM EST Office Visit [facility] Tima Gallegos [address] [place] [address] Lolis Tam DO [address] [place] [address] Scheduled Procedures Name Priority Associated Diagnoses Date/Ti [...] 2024 02/19/2023, 02/21/2021, 03/29/2020 GFR 09/12/2024 09/13/2023, 2, 02/18/2022, Additional history exists Pneumococcal Vaccine: 65+ [...] Advance Directives occurred with: Patient Care Teams Commercial Real Estate Attorney Relationship Specialty Start Date End Date Lolis Tam DO [address] [facility] [place] [address] PCP - General Family Medicine 08/13/21 documented as of this encounter
[2024-05-06] MEDS ORDERED: POLYETHYLENE (MIRALAX) 17 GM PACK PO PRN (23:18)
[2024-05-06] MEDS ORDERED: ALBUTEROL HFA 8 GM INHALER INH PRN (23:34)
[2024-05-06] MEDS ORDERED: ALBUTEROL 0.083% NEBU SOLN 3 ML VIAL NEB PRN (23:34)
--- NOTE | 2024-05-06 23:52 | Urology Consultation ---
Date of Consultation May 06, 2024 Assessment & Plan (1) Acute UTI: Patient has been admitted on the hospitalist service. From urologic perspective we recommend the following: Patient has been given antibiotics in form of Rocephin. Antibiotic should continue. They can be tailored based on patient's clinical response as well as pending culture results Blood and urine cultures have been sent and are pending. Tailor antibiotics based on culture results as noted above Would recommend maintaining Ramirez catheter for maximal urinary drainage I discussed with the hospital service and patient reportedly [facility] CT [facility] the [facility] which will determine if patient's ureteral stent is in good position Additional recommendations be forthcoming based on her clinical course as unfolds History of Present Illness Reason for Consultation: Urinary tract infection Attending Physician: Obey Henderson MD History of Present Illness This is an 83-year-old female who is well-known to [facility] physician group urology. The patient has a history of chronic right ureteral stent secondary to hydronephrosis. She most recently had her ureteral stent exchange on 04/09/2024. The patient was most recently admitted to [facility] on 04/24/2024 secondary to urinary tract infection. During that time the patient had a urine culture that grew Marlene. She was seen in consultation with infectious disease and was recommended that she be treated with Diflucan. Of note, the patient's previous urine cultures were reviewed and she also had a staff aureus/MRSA urinary tract infection on 04/10/2024. Patient has been transferred to [facility] from [facility] secondary to urinary tract infection. I visited with the patient at bedside she denies any fevers, shakes, or chills. She denies any nausea or vomiting. She denies any abdominal pain. She denies any back or flank pain. She notes that she has a chronic indwelling Ramirez catheter that has been in place as well. Since her arrival/admission to the hospital she has not had any labs or imaging performed. At the time of my interview she was resting comfortably in bed and did not appear to be in any distress. Allergies Allergy/AdvReac Type Severity Reaction Status Date / Time ibuprofen Allergy Unknown Unknown Unverified 09/04/23 17:30 Iodinated Contrast Media Allergy Unknown Unknown Unverified 09/04/23 17:30 iodine Allergy Unknown Unknown Unverified 09/04/23 17:30 metformin Allergy Unknown Unknown Unverified 09/04/23 17:30 naproxen Allergy Unknown Unknown Unverified 09/04/23 17:30 Penicillins Allergy Unknown Unknown Unverified 04/24/24 15:54 pregabalin Allergy Unknown Unknown Unverified 09/04/23 17:30 Home Medications Medication Instructions Recorded Confirmed Type albuterol sulfate 2.5 mg/3 mL 2.5 mg continuous nebulization Q4H 05/06/24 05/06/24 History (0.083 %) solution for nebulization PRN Shortness Of Breath Or Wheezing albuterol sulfate 90 mcg/actuation 2 puff inhalation Q4H PRN 05/06/24 05/06/24 History aerosol inhaler Shortness Of Breath Or Wheezing amlodipine 5 mg tablet 10 mg PO DAILY 05/06/24 05/06/24 History apixaban 2.5 mg tablet (Eliquis) 2.5 mg PO BID 05/06/24 05/06/24 History atorvastatin 10 mg tablet 10 mg PO DAILY 05/06/24 05/06/24 History ciprofloxacin HCl 250 mg tablet 250 mg PO BID 05/06/24 05/06/24 History citalopram 20 mg tablet 20 mg PO DAILY 05/06/24 05/06/24 History cyanocobalamin (vitamin B-12) 1,000 mcg PO DAILY 05/06/24 05/06/24 History 1,000 mcg tablet docusate sodium 100 mg capsule 100 mg PO BID 05/06/24 05/06/24 History duloxetine 30 mg capsule,delayed 30 mg PO DAILY 05/06/24 05/06/24 History release ferrous sulfate 324 mg (65 mg 324 mg PO DAILY 05/06/24 05/06/24 History iron) tablet,delayed release fluconazole 100 mg tablet 200 mg PO DAILY 05/06/24 05/06/24 History fluticasone 113 mcg-salmeterol 14 1 inh inhalation BID 05/06/24 05/06/24 History mcg/actuation breath activated powdr melatonin 5 mg tablet 5 mg PO HS PRN Insomnia 05/06/24 05/06/24 History pantoprazole 40 mg tablet,delayed 40 mg PO DAILY 05/06/24 05/06/24 History release polyethylene glycol 3350 17 gram 17 g PO DAILY 05/06/24 05/06/24 History oral powder packet umeclidinium 62.5 mcg/actuation 1 inh inhalation DAILY 05/06/24 05/06/24 History blister powder for inhalation (Incruse Ellipta) Patient History Medical History History of deep venous thrombosis (DVT) of distal vein of right lower extremity Anticoagulated History of CVA (cerebrovascular accident) Hypertension Diabetes Social History Smoking Status: Former smoker Tobacco Type: Cigarettes Second Hand Exposure: No; Do You Dip or Chew Tobacco: No; Tobacco Cessation Education Requested by Patient: No Hx Alcohol Use: No Hx Substance Use: No Preferred Language: Armenian Communication Ability: Impaired Communication Ability Comment: disoriented, difficulty holding items Elevators Inspector Required: No Beliefs That Will Affect Care: None Current Living Situation: Family Current Living Situation Comment: lives with daughter Other Information That Helps Us Care for You: No Feels Safe at Home: Yes Safety Concerns: Feels Safe At This Time Assistive Devices: Glasses and Mechanical Lift Review of Systems Review of Systems: All systems reviewed & are unremarkable except as noted in HPI & below Physical Exam Constitutional: WD/WN, vitals as above Eyes: no conjunctival abnormality ENMT: Ears: no hearing impairment and no external ear abnormality Neck: trachea midline Respiratory: normal respiratory effort; no respiratory distress and no labored breathing Cardiovascular: Rate/Rhythm: regular rate and regular rhythm Gastrointestinal (Abdomen): At the time of my exam patient's abdomen was soft and nondistended. Palpation did not cause pain. Skin: no rashes Neurologic: The patient was able to move her extremities and follow simple commands. Genitourinary: At the time of my exam the patient did not have any CVA tenderness with percussion bilaterally Results & Data Vital Signs (Past 12 Hours) Vital Signs Temp Pulse Resp BP Pulse Ox O2 Del Method 05/06/24 22:45 36.8 C 88 18 128/74 93 Room Air PG Care Time/CCT Total # of Minutes Spent Total Time Spent with Patient: Total time spent is greater than 50% in coordination of care (as documented) at patient's floor/unit and/or counseling patient: Coding Level of Care Code 81458 INT INP/OBS CARE MIN Diagnoses Acute UTI N39.0
--- NOTE | 2024-05-06 23:52 | History & Physical Report ---
Date of Service May 06, 2024 Assessment & Plan (1) Recurrent UTI: Plan: 83-year-old female with past medical history significant for type 2 diabetes, hyperlipidemia, asthma, hypertension, history of CVA and hemiplegia and wheelchair and bedbound, peripheral polyneuropathy, mild vascular dementia, history of CLL, history of DVT, lives with her daughter, history of recurrent UTI status post ureteral stent placement was transferred from [facility] because of recurrent UTI and because of ureteral stent and no urological services there. Patient is alert and oriented x 3. Able to give her history. Patient states she was having blood in the urine that is the reason she went to the hospital.As per [place] notes she brought there for confusion. Denies any fevers. Denies any abdominal pain. Normal bowel movements. Denies any chest pain or shortness of breath. No nausea. Appetite is okay. Eating soft food. Says she could not ambulate and cannot move left extremities. Denies any headache. No runny nose or sore throat. No cough. Currently hemodynamics are okay. Patient was recently in the hospital for acute confusion and complicated UTI. She has a right ureteral stent placed on 04/09. Urine cultures grew Marlene and ID recommended fluconazole for 2 weeks and to monitor QT interval. Last admit trazodone, tramadol, Ativan and olanzapine were stopped because of confusion from polypharmacy. Tried to call her daughter but went to voicemail. Recurrent UTI Chronic indwelling Ramirez catheter with ureteral stent placement Patient last admit was placed on fluconazole for Marlene with last date on 05/09 Seems started on Cipro as outpatient on 05/05 Will follow the cultures Empiric Rocephin for now Will follow the CAT scan done at [facility] Gentle fluids Urology consult for further recommendations GERD On Protonix Hypertension Amlodipine was started last admission Will monitor Depression On citalopram Hyperlipidemia On statin History of COPD Continue home inhalers and nebs as needed History of DVT On Eliquis History of CVA Hemiplegia Bedbound Lives with daughter Diet On soft diet DVT prophylaxis On Eliquis Disposition Medical floor Full code CT scan w/o contrast from [place]: 1.Hepatic gas lucencies seen in both hepatic lobes,likely aerobilia, may be due to recent biliary instrumentation, For hx corereltion. Further post contrast study advised to rule out abscess formation. 2.Gall bladder not seen(contracted or removed) with mild inflammatory changes in fossa. 3.Diffuse mural thickening of underdistended stomach, may need further evaluation 4. Right Double J ureteric cath in place. 5.Colonic diverticulosis with no evident diverticulitis. 6.Small duodenal diverticulum. To consider ct abd/pelvis with contrast Admission and Anticipated Discharge Date Admission Date: May 06, 2024 History of Present Illness Chief Complaint: Recurrent UTI Primary Care Provider: Lolis Tam DO 83-year-old female with past medical history significant for type 2 diabetes, hyperlipidemia, asthma, hypertension, history of CVA and hemiplegia and wheelchair and bedbound, peripheral polyneuropathy, mild vascular dementia, his tory of CLL, history of DVT, lives with her daughter, history of recurrent UTI status post ureteral stent placement was transferred from [facility] because of recurrent UTI and because of ureteral stent and no urological services there. Patient is alert and oriented x 3. Able to give her history. Patient states she was having blood in the urine that is the reason she went to the hospital.As per [place] notes she brought there for confusion. Denies any fevers. Denies any abdominal pain. Normal bowel movements. Denies any chest pain or shortness of breath. No nausea. Appetite is okay. Eating soft food. Says she could not ambulate and cannot move left extremities. Denies any headache. No runny nose or sore throat. No cough. Currently hemodynamics are okay. Patient was recently in the hospital for acute confusion and complicated UTI. She has a right ureteral stent placed on 04/09. Urine cultures grew Marlene and ID recommended fluconazole for 2 weeks and to monitor QT interval. Last admit trazodone, tramadol, Ativan and olanzapine were stopped because of confusion from polypharmacy. Tried to call her daughter but went to voicemail. Past medical history. As mentioned above Past surgical history. Dilatation curettage. Ligation of oviducts. Appendectomy. Cholecystectomy. Total hysterectomy. Social history. Lives with her daughter. Smoked average of 0.5 pack a day for 20 years. Quit in 2013. No alcohol use. No drug use. Allergies Allergy/AdvReac Type Severity Reaction Status Date / Time ibuprofen Allergy Unknown Unknown Unverified 09/04/23 17:30 Iodinated Contrast Media Allergy Unknown Unknown Unverified 09/04/23 17:30 iodine Allergy Unknown Unknown Unverified 09/04/23 17:30 metformin Allergy Unknown Unknown Unverified 09/04/23 17:30 naproxen Allergy Unknown Unknown Unverified 09/04/23 17:30 Penicillins Allergy Unknown Unknown Unverified 04/24/24 15:54 pregabalin Allergy Unknown Unknown Unverified 09/04/23 17:30 Home Medications Medication Instructions Recorded Confirmed Type albuterol sulfate 2.5 mg/3 mL 2.5 mg continuous nebulization Q4H 05/06/24 05/06/24 History (0.083 %) solution for nebulization PRN Shortness Of Breath Or Wheezing albuterol sulfate 90 mcg/actuation 2 puff inhalation Q4H PRN 05/06/24 05/06/24 History aerosol inhaler Shortness Of Breath Or Wheezing amlodipine 5 mg tablet 10 mg PO DAILY 05/06/24 05/06/24 History apixaban 2.5 mg tablet (Eliquis) 2.5 mg PO BID 05/06/24 05/06/24 History atorvastatin 10 mg tablet 10 mg PO DAILY 05/06/24 05/06/24 History ciprofloxacin HCl 250 mg tablet 250 mg PO BID 05/06/24 05/06/24 History citalopram 20 mg tablet 20 mg PO DAILY 05/06/24 05/06/24 History cyanocobalamin (vitamin B-12) 1,000 mcg PO DAILY 05/06/24 05/06/24 History 1,000 mcg tablet docusate sodium 100 mg capsule 100 mg PO BID 05/06/24 05/06/24 History duloxetine 30 mg capsule,delayed 30 mg PO DAILY 05/06/24 05/06/24 History release ferrous sulfate 324 mg (65 mg 324 mg PO DAILY 05/06/24 05/06/24 History iron) tablet,delayed release fluconazole 100 mg tablet 200 mg PO DAILY 05/06/24 05/06/24 History fluticasone 113 mcg-salmeterol 14 1 inh inhalation BID 05/06/24 05/06/24 History mcg/actuation breath activated powdr melatonin 5 mg tablet 5 mg PO HS PRN Insomnia 05/06/24 05/06/24 History pantoprazole 40 mg tablet,delayed 40 mg PO DAILY 05/06/24 05/06/24 History release polyethylene glycol 3350 17 gram 17 g PO DAILY 05/06/24 05/06/24 History oral powder packet umeclidinium 62.5 mcg/actuation 1 inh inhalation DAILY 05/06/24 05/06/24 History blister powder for inhalation (Incruse Ellipta) Past Med/Surg History Problem List (Updated 05/06/24 @ 23:58 by Obey Henderson MD) Recurrent UTI Advanced care planning/counseling discussion Palliative care by specialist Weakness generalized Hx MRSA infection (Acute) Leukocytosis (Acute) Failure of outpatient treatment (Acute) Acute UTI (Acute) Acute confusion (Acute) Ureteral stent present Delirium Hospice care (Acute) Failure of outpatient treatment (Acute) Hydronephrosis (Acute) Acute UTI (Acute) Altered mental status (Acute) Hydroureteronephrosis Choledocholithiasis Urinary tract obstruction by kidney stone Nephrolithiasis Abnormal CBC UTI (urinary tract infection) (Acute) Chronic pain No pertinent past surgical history COVID-19 (Acute) weaned off oxygen GERD (gastroesophageal reflux disease) Hyperlipidemia Insomnia Rheumatoid arthritis Type 2 diabetes mellitus with diabetic polyneuropathy Major depressive disorder Vascular dementia Constipation Acute osteomyelitis of toe (Acute) Medical History History of deep venous thrombosis (DVT) of distal vein of right lower extremity Anticoagulated History of CVA (cerebrovascular accident) Hypertension Diabetes Social History Smoking Status: Former smoker Tobacco Type: Cigarettes Second Hand Exposure: No; Do You Dip or Chew Tobacco: No; Tobacco Cessation Education Requested by Patient: No Hx Alcohol Use: No Hx Substance Use: No Preferred Language: Latvian Communication Ability: Impaired Communication Ability Comment: disoriented, difficulty holding items Remote Sensing Technologist Required: No Beliefs That Will Affect Care: None Current Living Situation: Family Current Living Situation Comment: lives with daughter Other Information That Helps Us Care for You: No Feels Safe at Home: Yes Safety Concerns: Feels Safe At This Time Assistive Devices: Glasses and Mechanical Lift Review of Systems Review of Systems: All systems reviewed & are unremarkable except as noted in HPI & below Physical Exam Physical Exam: General- Not in acute distress. Head- atraumatic ENT- oropharynx clear Neck- supple, no JVD. Lungs- clear to auscultation no wheezing or crackles Heart- regular rhythm; no murmur, no gallop. Abdomen- normal bowel sounds, soft, nontender, no distension. Extremities- no pretibial edema, no erythema seen. Neuro- alert, oriented x 3; no facial palsy; no dysarthria. Results & Data Results & Data Vital Signs (Past 12 Hours) Vital Signs Temp Pulse Resp BP Pulse Ox O2 Del Method 05/06/24 22:45 36.8 C 88 18 128/74 93 Room Air Code Status & VTE Plan VTE Prophylaxis Plan VTE Prophylaxis will be ordered: Yes
[2024-05-07] MEDS: cefTRIAXone SODIUM 2,000 MG/50 ML BAG IV SCH (00:09)
[2024-05-07] MEDS: SODIUM CHLORIDE 0.9% 1,000 ML IV SCH (00:09)
[2024-05-07 00:49] LABS: Appearance Urine Turbid (Clear); Bacteria Urine Automated 4+ (None Seen); Bilirubin Urine Negative (Negative); Blood Urine 3+ (Negative); Cast Urine Automated >20 /lpf (0-2); Color Urine Yellow; Epithelial Casts Urine Present /lpf (None Prsent); Epithelial Cell Urine Auto >20 /hpf (0-2); Glucose Urine UA Negative (Negative); Ketones Urine Trace (Negative); Leukocyte Esterase Urine 3+ (Negative); Mucus Urine Present (None Prsent); Nitrite Urine Positive (Negative); Protein Urine 3+ (Negative); RBC Urine Automated >20 /hpf (0-2); Specific Gravity Urine 1.019 (1.000-1.030); Urobilinogen Urine Negative (Negative); WBC Urine Automated >50 /hpf (0-5); pH Urine 5.5 (4.5-7.5)
[2024-05-07 06:03] LABS: Basophils # (auto) 0.07 K/uL (0.00-0.20); Basophils % (auto) 0.6 %; Eosinophils # (auto) 0.15 K/uL (0.00-0.50); Eosinophils % (auto) 1.3 %; Hematocrit (blood only) 35.9 % (37.0-47.0); Immature Granulocytes # (auto) 0.04 K/uL (0.01-0.20); Immature Granulocytes % (auto) 0.3 %; Lymphocytes # (auto) 4.12 K/uL (1.20-3.40); Lymphocytes % (auto) 35.5 %; Mean Corpuscular Hemoglobin 25.6 pg (25.0-34.0); Mean Corpuscular Hgb Conc 30.6 g/dL (32.0-36.0); Mean Corpuscular Volume 83.5 fL (80.0-100.0); Mean Platelet Volume 10.3 fL (9.4-12.4); Monocytes % (auto) 5.2 %; Neutrophils # (auto) 6.61 K/uL (1.40-6.50); Neutrophils % (auto) 57.1 %; Platelet Count 230 K/uL (130-400); RDW Coefficient of Variation 17.9 % (11.5-14.5); RDW Standard Deviation 53.3 fL (36.4-46.3); White Blood Count 11.59 K/ul (4.8-10.8)
[2024-05-07 06:15] LABS: Alanine Aminotransferase 23 U/L (7-52); Albumin Level 3.9 gm/dl (3.4-5.0); Alkaline Phosphatase 127 U/L (34-104); Anion Gap 8 (3-11); Aspartate Aminotransferase 27 U/L (13-39); BUN Creatinine Ratio 23.9 (10-20); Bilirubin Direct 0.1 mg/dl (0-0.2); Bilirubin,Total 0.3 mg/dl (0.2-1.0); Blood Urea Nitrogen 16 mg/dl (6-23); Calcium 9.1 mg/dl (8.6-10.3); Carbon Dioxide 27 mmol/L (21-32); Chloride 107 mmol/L (98-107); Glucose 116 mg/dl (70-99(Fasting)); Potassium 4.2 mmol/L (3.5-5.1); Sodium 142 mmol/L (136-145)
[2024-05-07] MEDS: ACETAMINOPHEN 325 MG TAB PO PRN (07:13)
--- NOTE | 2024-05-07 07:54 | Hospitalist Progress Note ---
Date of Service May 07, 2024 Assessment & Plan (1) Recurrent UTI: Plan: 83-year-old female with past medical history significant for type 2 diabetes, hyperlipidemia, asthma, hypertension, history of CVA and hemiplegia and wheelchair and bedbound, peripheral polyneuropathy, mild vascular dementia, history of CLL, history of DVT, lives with her daughter, history of recurrent UTI status post ureteral stent placement was transferred from [facility] because of recurrent UTI and because of ureteral stent and no urological services there. Patient is alert and oriented x 3. Able to give her history. Patient states she was having blood in the urine that is the reason she went to the hospital. Denies any fevers. Denies any abdominal pain. Normal bowel movements. Denies any chest pain or shortness of breath. No nausea. Appetite is okay. Eating soft food. Says she could not ambulate and cannot move left extremities. Denies any headache. No runny nose or sore throat. No cough. Currently hemodynamics are okay. Patient was recently in the hospital for acute confusion and complicated UTI. She has a right ureteral stent placed on 04/09. Urine cultures grew Marlene and ID recommended fluconazole for 2 weeks and to monitor QT interval. Last admit trazodone, tramadol, Ativan and olanzapine were stopped because of confusion from polypharmacy. Recurrent UTI Chronic indwelling Ng catheter with ureteral stent placement. Last ng exchange more than 3 weeks ago per daughter; will exchange here. * In 03/2024 urine grew Staph Aureus/MRSA; completed Zyvox * Last admission with a DC on 05/01 with fluconazole for Marlene with last date on 05/08 * She was started on Cipro as outpatient on 05/05; daughter reports she was taking this. This admission: UA + Nitrates, LE +3, WBC > 50; urine cx pending. Culture as outpatient on 05/05 Gram negative bacilli Started on Rocephin in ED: will adjust based on urine and blood cultures. Mild Leukocytosis; 11.59; afebrile CTAP without contrast done on 05/06: Hepatic gas lucencies seen in hepatic lobes; recommended contrast to r/o abscess. Gall bladder was not seen with mild inflammatory changes. Colonic diverticulosis without diverticulitis with small duodenal diverticulum. Will obtain CTAP with contrast Creatinine 0.67 Gentle fluids ordered antiemetics PRN Urology consult placed; appreciate recommendations; they have signed off as of 05/07 Hypertension Amlodipine was started last admission; continue Depression Takes citalopram; continue Hyperlipidemia Takes low dose atorvastatin; continue Check lipid panel in AM History of COPD Takes Albuterol PRN and Incruse Ellipta; continue History of DVT: Chronic On Eliquis History of CVA: left sided Hemiplegia/contractures Bedbound soft diet Lives with daughter, Anita Left limb restriction order placed to avoid BP and blood draws History of CLL: Does not follow with oncology GERD Chronic On Protonix; continue DVT prophylaxis: On Eliquis Disposition: Medical floor Code Status: DNR/DNI I spent a total of 56 minutes coordinating, documenting, and providing care for this patient excluding time spent in the performance of separately billed services. All of the aforementioned completed while collaborating with the gissell juan attending physician for a full treatment plan. Please see their addendum for further details. Admission and Anticipated Discharge Date Admission Date: May 06, 2024 Supervising Physician Co-Signing Physician Notes Pt seen and examined by me, care coordinated w/ E. SCOTT Woo, pls see her note above for further detail. Pt is currently laying in bed in [facility]. Urology - Dr. Anna, also at the bedside and discussed with. Pt was transferred overnight from outside hospital. She has ng and ureteral stents - per urology no need to exchange at this time (about every 6 months). Pt reports some headache and feet discomfort, asks for tylenol - discussed w/ RN. Lungs ctab, heart sounds regular. Not moving LLE, contractured LUE. Will cont. to follow cultures, cont. emp. abx for now. Reportedly abnormal CT abd. at [facility] - plan to obtain CT abd.pelvis here. MD Heather Subjective I spoke with her daughter Anita on the phone @ [phone], who she said that her back was hurting and had some dysuria with burning. She had some intermittent confusion over the past few days. She is being followed by [facility]. Patient has complex medical ailments and was on Hospice at one point. Has chronic complaints of BL LE peripheral neuropathy. She states that when she was at home she was complaining more of nausea and had an episode of vomiting the other night with complaints of back pain. In the room, patient is awake, alert, oriented x2 and able to answer some questions. She is very focused on her positioning of pillows and around her feet. Per daughter, has peripheral neuropathy. Pt denies [place], dizziness, SOB, chest pain, SOB, V/D, recent falls. Patient does have expressive aphagia per daughter at baseline. please see below for plan for further details. Review of Systems Review of Systems: Unobtainable due to cognitive status Physical Exam Physical Exam: Neuro: AAOx1, PERRLA, (+) expressive aphagia, memory changes, CNII-XII grossly intact HEENT: head normocephalic, moist mucus membranes CV: S1/S2, (-) M/G/R, (-) edema, cap refill < 3 seconds Resp: Lungs CTA in all bhakta. On RA GI: Abdomen S/NT/ND, Ax4 bowel sounds, (-) CVA tenderness Musculoskeletal: 3/5 RUE strength, severely contracted LUE. 3/5 B/L LE strength. bedbound at baseline Skin: (-) rashes , (-) erythema. Chronic indwelling ng catheter. Psych: euthymic mood Results & Data Results & Data Vital Signs (Past 12 Hours) Vital Signs Temp Pulse Resp BP Pulse Ox O2 Del Method 05/07/24 06:57 36.8 C 91 H 18 115/73 96 Room Air 05/06/24 22:45 36.8 C 88 18 128/74 93 Room Air Laboratory Results Short CBC 05/07/24 Range/Units 05:40 WBC 11.59 H (4.8-10.8) K/ul Hgb 11.0 L (12.0-16.0) g/dl Hct 35.9 L (37.0-47.0) % Plt Count 230 (130-400) K/uL BMP 05/07/24 05:39 Sodium 142 Potassium 4.2 Chloride 107 Carbon Dioxide 27 BUN 16 Creatinine 0.67 Glucose 116 H Calcium 9.1 Liver Function 05/07/24 Range/Units 05:39 Total Bilirubin 0.3 (0.2-1.0) mg/dl Direct Bilirubin 0.1 (0-0.2) mg/dl AST 27 (13-39) U/L ALT 23 (7-52) U/L Alkaline Phosphatase 127 H (34-104) U/L Albumin 3.9 (3.4-5.0) gm/dl Urine 05/07/24 Range/Units 00:17 Urine Color Yellow Urine Appearance Turbid A (Clear) Urine pH 5.5 (4.5-7.5) Ur Specific [place] 1.019 (1.000-1.030) Urine Protein 3+ H (Negative) Urine Glucose (UA) Negative (Negative)
[2024-05-07] MEDS: POLYETHYLENE (MIRALAX) 17 GM PACK PO SCH (08:50)
[2024-05-07] MEDS: DOCUSATE SODIUM 100 MG CAP PO SCH (08:50)
[2024-05-07] MEDS: FLUCONAZOLE 100 MG TAB PO SCH (08:50)
[2024-05-07] MEDS: UMECLIDINIUM BROMIDE 62.5MCG/BLISTER 7 PUFFS/INHALER INH SCH (08:51)
[2024-05-07] MEDS: PANTOprazole 40 MG TAB PO SCH (08:52)
[2024-05-07] MEDS: FERROUS SULFATE 325 MG TAB PO SCH (08:52)
[2024-05-07] MEDS: amLODIPine BESYLATE 5 MG TAB PO SCH (08:52)
[2024-05-07] MEDS: FLUTICASONE/VILANTEROL 100/25MCG 14 PUFFS/INHALER INH SCH (08:52)
[2024-05-07] MEDS: CYANOCOBALAMIN (B-12) 500 MCG TABLET PO SCH (08:52)
[2024-05-07] MEDS: APIXABAN 2.5 MG TAB PO SCH (08:53)
[2024-05-07] MEDS: ATORVASTATIN 10 MG TAB PO SCH (08:53)
[2024-05-07] MEDS: CITALOPRAM 20 MG TAB PO SCH (08:53)
[2024-05-07] MEDS: DULoxetine HCL 30 MG CAP PO SCH (08:53)
--- NOTE | 2024-05-07 10:23 | Urology Progress Note ---
Date of Service May 07, 2024 Assessment & Plan (1) Recurrent UTI: Plan: Transferred from [facility] overnight Not entirely certain why she was transferred or the exact indication for confinement She seems to be hemodynamically stable She likely is chronically colonized with bacteriashe does have some input from ID on prior recurrent urinary tract infections She has an indwelling stent and indwelling Ramirez catheterboth are chronic, neither requires exchange right now I wonder if her nausea is a separate issue? From a standpoint, we will sign off and defer antibiotic management to ID Admission and Anticipated Discharge Date Admission Date: May 06, 2024 Subjective Seems to be doing okay this morning Complaining about some mild nausea and some foot discomfort She reports that these are not her typical urinary tract infection symptoms Physical Exam Physical Exam: Bedbound Urine relatively clear Hemodynamically stableafebrile, normotensive, not tachycardic Results & Data Vital Signs (Past 12 Hours) Vital Signs Temp Pulse Resp BP Pulse Ox O2 Del Method 05/07/24 08:36 36.6 C 91 H 18 144/77 H 92 Room Air 05/07/24 06:57 36.8 C 91 H 18 115/73 96 Room Air 05/06/24 22:45 36.8 C 88 18 128/74 93 Room Air PG Care Time/CCT Total # of Minutes Spent Total Time Spent with Patient: Total time spent is greater than 50% in coordination of care (as documented) at patient's floor/unit and/or counseling patient: Coding Level of Care Code 44658 SUB INP/OBS CARE 06/10MIN Diagnoses Recurrent UTI N39.0
--- NOTE | 2024-05-07 13:10 | Electrocardiogram Report ---
Test Reason : Blood Pressure : */* mmHG Vent. Rate : 86 BPM Atrial Rate : 86 BPM P-R Int : 142 ms QRS Dur : 68 ms QT Int : 352 ms P-R-T Axes : 51 -8 -45 degrees QTcB Int : 421 ms Normal sinus rhythm Inferior infarct (cited on or before 12-Sep-2023) Abnormal ECG When compared with ECG of 28-Apr-2024 08:35, Fusion complexes are no longer Present Premature ventricular complexes are no longer Present Borderline criteria for Anterolateral infarct are no longer Present QT has shortened Confirmed by Benton Bella ([id number]) on 05/07/2024 1:10:26 PM Referred By: Obey Henderson Confirmed By: Benton Bella
[2024-05-07] MEDS ORDERED: methylPREDNISolone 125 MG/2 ML VIAL IV ONE ×2 (16:11→22:00)
[2024-05-07] MEDS ORDERED: diphenhydrAMINE Capsule 25 MG CAP PO ONE (16:14)
[2024-05-07] MEDS ORDERED: methylPREDNISolone 40 MG in SYRINGE 0 ML IV ONE ×2 (16:45→22:00)
[2024-05-07] MEDS: ONDANSETRON INJ 2 MG/ML 2 ML VIAL IV PRN (17:34)
[2024-05-07] MEDS: methylPREDNISolone 40 MG in SYRINGE 0 ML IV STA (17:43)
--- NOTE | 2024-05-07 17:49 | Gastrointestinal Consultation ---
Date of Consultation May 07, 2024 Assessment & Plan (1) Abnormal finding on imaging of liver: Patient had a CT scan done on 04 24 which showed some abnormalities of the biliary tract however she had a CT scan done in March which did not show that any of those abnormalities it and she also had a CT scan and done earlier in this year which did not show those abnormalities it is very difficult to obtain any history from the patient however she is undergoing treatment for UTIs at the current time a repeat CT scan has been ordered and she is supposed to undergo that CT scan tonight further recommendations after review of the repeat CT scan Nausea As per the nurse there are complaints of nausea and she has been started as on Zofran we will follow subjectively History of Present Illness Reason for Consultation: Abnormal imaging Requesting Physician: Jose Forbes Attending Physician: Mark Romero MD History of Present Illness This patient up an elderly 83-year-old female who is DNR/DNI and really unable to give much of a history she answers no to all questions that are asked and ask if she has dysphagia or reflux nausea vomiting abdominal pain diarrhea constipation or any other GI complaints she answered no I spoke with the nurse who also stated that she really cannot give any history she has been treated and evaluated for UTIs of note she had some imaging done on 04 24 of this month which showed some questionable pneumobilia which was not seen on any imaging that was done a few weeks before as well as earlier in the year Allergies Allergy/AdvReac Type Severity Reaction Status Date / Time ibuprofen Allergy Unknown Unknown Unverified 09/04/23 17:30 Iodinated Contrast Media Allergy Unknown Unknown Unverified 09/04/23 17:30 iodine Allergy Unknown Unknown Unverified 09/04/23 17:30 metformin Allergy Unknown Unknown Unverified 09/04/23 17:30 naproxen Allergy Unknown Unknown Unverified 09/04/23 17:30 Penicillins Allergy Unknown Unknown Unverified 04/24/24 15:54 pregabalin Allergy Unknown Unknown Unverified 09/04/23 17:30 Home Medications Medication Instructions Recorded Confirmed Type albuterol sulfate 2.5 mg/3 mL 2.5 mg continuous nebulization Q4H 05/06/24 05/06/24 History (0.083 %) solution for nebulization PRN Shortness Of Breath Or Wheezing albuterol sulfate 90 mcg/actuation 2 puff inhalation Q4H PRN 05/06/24 05/06/24 History aerosol inhaler Shortness Of Breath Or Wheezing amlodipine 5 mg tablet 10 mg PO DAILY 05/06/24 05/06/24 History apixaban 2.5 mg tablet (Eliquis) 2.5 mg PO BID 05/06/24 05/06/24 History atorvastatin 10 mg tablet 10 mg PO DAILY 05/06/24 05/06/24 History ciprofloxacin HCl 250 mg tablet 250 mg PO BID 05/06/24 05/06/24 History citalopram 20 mg tablet 20 mg PO DAILY 05/06/24 05/06/24 History cyanocobalamin (vitamin B-12) 1,000 mcg PO DAILY 05/06/24 05/06/24 History 1,000 mcg tablet docusate sodium 100 mg capsule 100 mg PO BID 05/06/24 05/06/24 History duloxetine 30 mg capsule,delayed 30 mg PO DAILY 05/06/24 05/06/24 History release ferrous sulfate 324 mg (65 mg 324 mg PO DAILY 05/06/24 05/06/24 History iron) tablet,delayed release fluconazole 100 mg tablet 200 mg PO DAILY 05/06/24 05/06/24 History fluticasone 113 mcg-salmeterol 14 1 inh inhalation BID 05/06/24 05/06/24 History mcg/actuation breath activated powdr melatonin 5 mg tablet 5 mg PO HS PRN Insomnia 05/06/24 05/06/24 History pantoprazole 40 mg tablet,delayed 40 mg PO DAILY 05/06/24 05/06/24 History release polyethylene glycol 3350 17 gram 17 g PO DAILY 05/06/24 05/06/24 History oral powder packet umeclidinium 62.5 mcg/actuation 1 inh inhalation DAILY 05/06/24 05/06/24 History blister powder for inhalation (Incruse Ellipta) Patient History Medical History History of deep venous thrombosis (DVT) of distal vein of right lower extremity Anticoagulated History of CVA (cerebrovascular accident) Hypertension Diabetes Social History Smoking Status: Former smoker Tobacco Type: Cigarettes Second Hand Exposure: No; Do You Dip or Chew Tobacco: No; Tobacco Cessation Education Requested by Patient: No Hx Alcohol Use: No Hx Substance Use: No Preferred Language: Maori Communication Ability: Impaired Communication Ability Comment: disoriented, difficulty holding items Tin Cutter Required: No Beliefs That Will Affect Care: None Current Living Situation: Family Current Living Situation Comment: lives with daughter Other Information That Helps Us Care for You: No Feels Safe at Home: Yes Safety Concerns: Feels Safe At This Time Assistive Devices: Hospital Bed, Mechanical Lift, Oxygen - at Night and Wheelchair Review of Systems Review of Systems: Unable to do in view of patient's overall mental status Physical Exam Constitutional: Elderly female who is lying slouched in bed Eyes: Sclera anicteric Respiratory: Clear anteriorly Cardiovascular: S1 and S2 Gastrointestinal (Abdomen): Soft no tenderness or masses are appreciated Results & Data Vital Signs (Past 12 Hours) Vital Signs Temp Pulse Resp BP Pulse Ox O2 Del Method 05/07/24 15:51 36.6 C 83 18 134/78 98 Room Air 05/07/24 11:43 36.5 C 95 H 17 120/72 93 Room Air 05/07/24 08:36 36.6 C 91 H 18 144/77 H 92 Room Air 05/07/24 06:57 36.8 C 91 H 18 115/73 96 Room Air PG Care Time/CCT Total # of Minutes Spent Total Time Spent with Patient: Total time spent is greater than 50% in coordination of care (as documented) at patient's floor/unit and/or counseling patient: Coding Level of Care Code 86657 IN/OBS CONSULT LVL 2,35M Diagnoses Abnormal finding on imaging of liver R93.2
[2024-05-07] MEDS: diphenhydrAMINE Capsule 25 MG CAP PO ONE (20:55)
[2024-05-07] MEDS: methylPREDNISolone 40 MG in SYRINGE 0 ML IV ONE (20:55)
[2024-05-07] MEDS: DICLOFENAC SOD 1% GEL 100 GM TUBE EXT SCH (20:55)
[2024-05-07] MEDS: OPTIRAY 320 100ml IV ONE (22:03)
--- NOTE | 2024-05-08 00:02 | CT Scan Report ---
Exam(s): CT ABDOMEN + PELVIS With Contrast IV Amt: OPTIRAY 320 94ML EXAM: CT Abdomen and Pelvis With Intravenous Contrast CLINICAL HISTORY: Nausea. TECHNIQUE: Axial computed tomography images of the abdomen and pelvis with intravenous contrast. CTDI is 25.87 mGy and DLP is 1372.99 mGy-cm. Automated exposure control was utilized for the study. A dose lowering technique was utilized adhering to the principles of ALARA. CONTRAST: Patient received OPTIRAY 320 94ML of IV contrast COMPARISON: No relevant prior studies available. FINDINGS: Lung bases: Unremarkable. No mass. No consolidation. ABDOMEN: Liver: Unremarkable. No mass. Gallbladder and bile ducts: Redemonstrated moderate pneumobilia. No calcified stones. No ductal dilation. Pancreas: Unremarkable. No mass. No ductal dilation. Spleen: Unremarkable. No splenomegaly. Adrenals: Unremarkable. No mass. Kidneys and ureters: Mild right hydronephrosis with a ureteral stent in good position, however there are striated nephrograms and enhancement of the renal wall. Question of subtle striated nephrograms of the left kidney. No significant left hydronephrosis. Stomach and bowel: Diverticulosis. No obstruction. No mucosal thickening. PELVIS: Appendix: No findings to suggest acute appendicitis. Bladder: Unremarkable. No mass. Reproductive: Hysterectomy. Mild pelvic floor prolapse. ABDOMEN and PELVIS: Intraperitoneal space: Unremarkable. No free air. No significant fluid collection. Bones/joints: There are degenerative changes of the spine. No acute fracture. No dislocation. Soft tissues: Nonspecific body wall edema. Vasculature: Severe atherosclerosis. No abdominal aortic aneurysm. Lymph nodes: Unremarkable. No enlarged lymph nodes. IMPRESSION: 1. Mild right hydronephrosis with a ureteral stent in good position, however there are striated nephrograms and enhancement of the renal wall. This concerning for acute pyelonephritis. 2. Question of subtle striated nephrograms of the left kidney. No significant left hydronephrosis. The left kidney is also likely involved in the acute pyelonephritis. 3. Diverticulosis. 4. Mild pelvic floor prolapse. 5. Nonspecific body wall edema. Electronically signed by: Vonnie Pope MD 05/08/24 00:01 AM
[2024-05-08 07:18] LABS: Hematocrit (blood only) 33.3 % (37.0-47.0); Hemoglobin 10.6 g/dl (12.0-16.0); Mean Corpuscular Hgb Conc 31.8 g/dL (32.0-36.0); Mean Corpuscular Volume 81.6 fL (80.0-100.0); Mean Platelet Volume 10.6 fL (9.4-12.4); Platelet Count 252 K/uL (130-400); RDW Coefficient of Variation 17.2 % (11.5-14.5); RDW Standard Deviation 50.9 fL (36.4-46.3); Red Blood Count 4.08 M/uL (4.20-5.40); White Blood Count 7.52 K/ul (4.8-10.8)
[2024-05-08 07:29] LABS: Alanine Aminotransferase 19 U/L (7-52); Albumin Globulin Ratio 1.3 (0.9-2); Alkaline Phosphatase 107 U/L (34-104); Anion Gap 7 (3-11); Aspartate Aminotransferase 18 U/L (13-39); BUN Creatinine Ratio 22.4 (10-20); Bilirubin,Total 0.2 mg/dl (0.2-1.0); Blood Urea Nitrogen 13 mg/dl (6-23); Calcium 9.4 mg/dl (8.6-10.3); Carbon Dioxide 27 mmol/L (21-32); Chloride 104 mmol/L (98-107); Globulin 3.1 gm/dl (2.5-4.0); Glucose 155 mg/dl (70-99(Fasting)); Magnesium 1.9 mg/dl (1.7-2.4); Phosphorus 3.4 mg/dl (2.5-4.9); Potassium 4.3 mmol/L (3.5-5.1); Sodium 138 mmol/L (136-145); Total Protein 7.1 gm/dl (6.0-8.3)
--- NOTE | 2024-05-08 08:59 | Hospitalist Progress Note ---
Date of Service May 08, 2024 Assessment & Plan (1) Recurrent UTI: (2) Acute pyelonephritis: (3) Chronic indwelling Ng catheter: (4) Abnormal finding on imaging of liver: Plan Ruthann Oro is an 83-year-old female with past medical history significant for type 2 diabetes, hyperlipidemia, asthma, hypertension, history of CVA with left-sided hemiplegia/contractures [wheelchair/bedbound at baseline; lives with daughter], peripheral polyneuropathy, mild vascular dementia, history of CLL, history of DVT and history of recurrent UTIs s/p recent right ureteral stent placement [03/2024] who was transferred from [facility] to [facility] on 05/06/2024 for management of a recurrent UTI given that their facility is not equipped with urological services. Patient was recently here at [facility] earlier this month for acute confusion and complicated UTI. She has a right ureteral stent placed on 04/09/2024 during another previous admission. Urine cultures grew Marlene during her most recent prior admission and ID recommended fluconazole for 2 weeks and to monitor her QT interval. Trazodone, tramadol, Ativan and olanzapine were stopped last admission because of confusion from polypharmacy. Recurrent UTI, C/F Acute Bilateral Pyelonephritis Chronic Indwelling Ng Catheter, Chronic Right Ureteral Stent Placement 2/2 Hydronephrosis: Last Ng catheter exchange more than 3 weeks ago per daughter on arrival. Ng therefore exchanged on 05/07. * In 03/2024, urine culture grew Staph Aureus/MRSA; completed Zyvox. * Last admission with a d/c on 05/01/2024 with fluconazole for Marlene with last taken date on 05/08/2024. * She was started on Cipro as an outpatient on 05/05/2024; daughter reports she was taking this - culture from this time grew gram-negative bacilli. UA this admission positive for nitrites, 3+ LE, WBC>50 and 4+ bacteria. Was started on IV Rocephin in the ED. Urine culture this admission noted to be growing Enterobacter cloacae complex today therefore IV Rocephin was switched to IV meropenem per pharmacy's recommendation. Leukocytosis resolved. Repeat CTAP with contrast yesterday displays concern for bilateral pyelonephritis. Urology had previously signed off on the patient on 05/07 however I did reach back out again this morning to ensure there were no recommendations for changes in her management given the concern for bilateral pyelonephritis on repeat imaging. Her right ureteral stent is in good position on the repeat CTAP therefore there is no need for surgical intervention at this time. Blood cultures with NGTD - continue to monitor. Continue PRN antiemetics. Abnormal Finding on Imaging of Liver: Patient had CTAP without contrast done on 05/06 at [facility] which revealed hepatic lucencies within the hepatic lobes. CTAP with contrast was recommended to r/o possibility of an abscess. Repeat CTAP with contrast yesterday redemonstrated moderate pneumobilia. Case discussed with GI --> "Review of records shows a CCY and ERCP w/ biliary sphincterotomy and balloon extraction for treatment of CBD stones at [facility] w/ Dr. Oswaldo Spence in 2021. The pneumobilia on CT imaging is likely related to ERCP w/ sphincterotomy given her normal LFTs. No acute indication for GI intervention." Other Chronic Medical Conditions: * HTN - Amlodipine was started last admission; BP remains stable, can continue. H/O DVT - On Eliquis. GERD - Continue Protonix. * Depression - Continue citalopram. HLD - Continue statin. COPD - Continue Incru se Ellipta, PRN albuterol inhaler. H/O CLL - Does not follow with onc. * H/O CVA - Left-sided hemiplegia/contractures. Bedbound at baseline, soft diet. LUE restriction order placed. Lives with daughter, Anita [ ]. DVT Prophylaxis: On Eliquis RIVET SPINNER - continue. Code Status: DNR/DNI - No Resuscitation PCP: Lolis Tam DO Disposition: Admitted in Med/Surg - Plan for patient to return home when medically stable for discharge, already has services established with [facility]. Patient seen in collaboration with Dr. Romero. Please see addendum. I spent a total of 60 minutes coordinating, documenting, and providing care for this patient excluding time spent in the performance of separately billed services. This included personally reviewing all current laboratories and imaging studies, medical reconciliation, outpatient chart review and discussion with specialists. This chart was completed in part utilizing Speech Voice Recognition Software. Grammatical errors, random word insertions, pronoun errors, and incomplete sentences are an occasional consequence of this system due to software limitations, ambient noise, and hardware issues. Any formal questions or concerns about the content, text, or information contained within the body of this dictation should be directly addressed to the provider for clarification. Admission and Anticipated Discharge Date Admission Date: May 06, 2024 Supervising Physician Co-Signing Physician Notes Pt seen and examined by me, care coordinated w/ JUSTIN, pls refer to her note above for further detail. Pt was transferred from outside hospital. She has ng and ureteral stents - per urology no need to exchange at this time (about every 6 months).Pt is currently laying in bed in NAD. Discussed w/ urology yesterday and again today after CT abd.pelvis obtained - cont. current management w/ abx. GI was consulted as well - reviewed CT abd. pelvis - for posit. pneumobilia, at this time no new recommendations, likely secondary to the past procedure, disc ussed w/ [facility]. Pt is currently laying in bed in NAD. Not moving LLE, contractured LUE. Reports abdominal discomfort. Urine cultx posit. for Enterobacter cloacae - abx changed to meropenem. Cont. to closely monitor. MD Heather Subjective Patient seen and examined at bedside this morning. She was alert and oriented to direct questioning, able to answer simple questions. Reports some abdominal discomfort and endorses persistent nausea. She is very focused on the positioning of her feet and blankets. She is endorsing pain in both of her feet as well as her calf regions which she reports started earlier this morning. Patient does have peripheral neuropathy at baseline. She denies any chest pain or SOB. Review of Systems Review of Systems: Unable to properly obtain secondary to patient's cognitive status. Physical Exam Physical Exam: General: NAD, laying down in bed, A+O to direct questioning with appropriate responses, expressive aphasia and cognitive issues at baseline. HEENT: Normocephalic, atraumatic. Conjunctivae normal, anicteric sclerae. External ear and nose normal, oropharynx slightly dry. Respiratory: Normal respiratory effort, lungs clear to auscultation, no wheeze/rales/rhonchi. No accessory muscle use. Cardiovascular: Regular rate, rhythm, normal peripheral pulses, no BLE edema. Vessels: No JVD. Abdomen/GI: Normal bowel sounds, soft, nondistended, nontender to palpation in all quadrants. : Chronic indwelling Ng catheter in place and draining dark yellow urine. Extremities/Musculoskeletal: No cyanosis or clubbing, bedbound at baseline, severely contracted LUE. Neurologic: No overt focal deficits, CN's II-XI not formally tested but appear grossly intact bilaterally. Skin: No rashes, normal color, warm/dry. Results & Data Results & Data Vital Signs (Past 12 Hours) Vital Signs Temp Pulse Resp BP Pulse Ox O2 Del Method 05/08/24 06:53 36.4 C L 88 16 139/73 95 Room Air Laboratory Results 05/08/24 Range/Units 06:14 WBC 7.52 (4.8-10.8) K/ul RBC 4.08 L (4.20-5.40) M/uL Hgb 10.6 L (12.0-16.0) g/dl Hct 33.3 L (37.0-47.0) % MCV 81.6 (80.0-100.0) fL MCH 26.0 (25.0-34.0) pg MCHC 31.8 L (32.0-36.0) g/dL RDW Std Deviation 50.9 H (36.4-46.3) fL RDW Coeff of Atilio 17.2 H (11.5-14.5) % Plt Count 252 (130-400) K/uL MPV 10.6 (9.4-12.4) fL Sodium 138 (136-145) mmol/L Potassium 4.3 (3.5-5.1) mmol/L Chloride 104 (98-107) mmol/L Carbon Dioxide 27 (21-32) mmol/L Anion Gap 7 (3-11) BUN 13 (6-23) mg/dl Creatinine 0.58 L (0.6-1.2) mg/dl Est Cr Clr Drug Dosing Not Reportable eGFR 90.86 BUN/Creatinine Ratio 22.4 H (10-20) Glucose 155 H (70-99(Fasting)) mg/dl Calcium 9.4 (8.6-10.3) mg/dl Phosphorus 3.4 (2.5-4.9) mg/dl Magnesium 1.9 (1.7-2.4) mg/dl Total Bilirubin 0.2 (0.2-1.0) mg/dl AST 18 (13-39) U/L ALT 19 (7-52) U/L Alkaline Phosphatase 107 H (34-104) U/L Total Protein 7.1 (6.0-8.3) gm/dl Albumin 4.0 (3.4-5.0) gm/dl Globulin 3.1 (2.5-4.0) gm/dl Albumin/Globulin Ratio 1.3 (0.9-2) Medications Administered Current Inpatient Medications Acetaminophen (Acetaminophen 325 Mg Tab) 650 mg PO Q4H PRN PRN Reason: pain/fever Stop: 06/05/24 23:17 Last Admin: 05/08/24 06:17 Dose: 650 mg Albuterol (Albuterol 0.083% Nebu Soln 3 Ml Vial) 2.5 mg NEB Q4H PRN; Protocol PRN Reason: Shortness Of Breath Or Wheezing Stop: 06/05/24 23:33 Albuterol (Albuterol Hfa 8 Gm Inhaler) 2 puffs INH Q4H PRN PRN Reason: Shortness Of Breath Or Wheezin Stop: 06/05/24 23:33 Amlodipine Besylate (Amlodipine Besylate 5 Mg Tab) 10 mg PO DAILY [facility] Stop: 06/06/24 08:59 Last Admin: 05/08/24 08:44 Dose: 10 mg Apixaban (Apixaban 2.5 Mg Tab) 2.5 mg PO BID [facility] Stop: 06/06/24 08:59 Last Admin: 05/08/24 08:44 Dose: 2.5 mg Atorvastatin Calcium (Atorvastatin 10 Mg Tab) 10 mg PO DAILY [facility] Stop: 06/06/24 08:59 Last Admin: 05/08/24 08:44 Dose: 10 mg Citalopram Hydrobromide (Citalopram 20 Mg Tab) 20 mg PO DAILY [facility] Stop: 06/06/24 08:59 Last Admin: 05/08/24 08:44 Dose: 20 mg Cyanocobalamin (Cyanocobalamin (B-12) 500 Mcg Tablet) 1,000 mcg PO DAILY [facility] Stop: 06/06/24 08:59 Last Admin: 05/08/24 08:44 Dose: 1,000 mcg Diclofenac Sodium (Diclofenac Sod 1% Gel 100 Gm Tube) 2 gm EXT BID [facility]; Protocol Stop: 06/06/24 20:59 Last Admin: 05/08/24 08:44 Dose: 2 gm Docusate Sodium (Docusate Sodium 100 Mg Cap) 100 mg PO BID [facility] Stop: 06/06/24 08:59 Last Admin: 05/08/24 08:45 Dose: 100 mg Duloxetine HCl (Duloxetine Hcl 30 Mg Cap) 30 mg PO DAILY [facility] Stop: 06/06/24 08:59 Last Admin: 05/08/24 08:43 Dose: 30 mg Ferrous Sulfate (Ferrous Sulfate 325 Mg Tab) 325 mg PO DAILY [facility] Stop: 06/06/24 08:59 Last Admin: 05/08/24 08:44 Dose: 325 mg Fluconazole (Fluconazole 100 Mg Tab) 200 mg PO DAILY [facility] Stop: 05/09/24 09:01 Last Admin: 05/08/24 08:45 Dose: 200 mg Fluticasone/Vilanterol (Fluticasone/Vilanterol 100/25mcg 14 Puffs/Inhaler) 1 puffs INH DAILY [facility] Stop: 06/06/24 08:59 Last Admin: 05/08/24 08:45 Dose: 1 puffs Meropenem 500 mg/ Syringe 10 mls @ 2 mls/min IV Q6H [facility]; Protocol Stop: 05/15/24 11:59 Last Admin: 05/08/24 12:14 Dose: 2 mls/min Melatonin (Melatonin 3 Mg Tab) 4.5 mg PO HS PRN PRN Reason: Insomnia Ondansetron HCl (Ondansetron Inj 2 Mg/Ml 2 Ml Vial) 4 mg IV Q6H PRN PRN Reason: Nausea And Vomiting Stop: 06/06/24 17:08 Last Admin: 05/07/24 17:34 Dose: 4 mg Pantoprazole Sodium (Pantoprazole 40 Mg Tab) 40 mg PO DAILY [facility] Stop: 06/06/24 08:59 Last Admin: 05/08/24 08:44 Dose: 40 mg Polyethylene Glycol (Polyethylene (Miralax) 17 Gm Pack) 17 gm PO DAILY PRN PRN Reason: Constipation Stop: 06/05/24 23:17 Polyethylene Glycol (Polyethylene (Miralax) 17 Gm Pack) 17 gm PO DAILY [facility] Stop: 06/06/24 08:59 Last Admin: 05/08/24 08:45 Dose: 17 gm Umeclidinium [place] (Umeclidinium [place] 62.5mcg/Blister 7 Puffs/Inhaler) 1 puffs INH DAILY [facility] Stop: 06/06/24 08:59 Last Admin: 05/08/24 08:45 Dose: 1 puffs
--- NOTE | 2024-05-08 09:51 | Gastroenterology Progress Note ---
Date of Service May 08, 2024 Assessment & Plan (1) Abnormal finding on imaging of liver: Plan: 83 year old female w/ history of type 2 diabetes, hyperlipidemia, asthma, hypertension, history of CVA and hemiplegia and wheelchair and bedbound, peripheral polyneuropathy, mild vascular dementia, history of CLL, history of DVT, lives with her daughter, history of recurrent UTI admitted w/ recurrent UTI. GI was asked to evaluate as imaging shows pneumobilia. Review of record shows a CCY and ERCP w/ biliary sphincterotomy and balloon extraction for treatment of CBD stones at [facility] w/ Dr. Oswaldo Mckeon in 2021. The pneumobilia on CT imaging is likely related to ERCP w/ sphincterotomy given her normal LFTs. No acute indicaiton for GI intervention. Recall as needed. Thank you for allowing us to participate in the care of this patient. Please call with any acute changes, questions or concerns. Please see addendum below with additional recommendation from my supervising physician. I spent a total of 55 minutes on the date of service in review of patient's record, and previously obtained information in person and appropriate medical visit, discussion and education of plan, with patient and/or caregiver, placing orders for tests/referral/procedures as medically necessary and documentation of pertinent clinical information in patient's medical records for their visit today. Admission and Anticipated Discharge Date Admission Date: May 06, 2024 Supervising Physician Co-Signing Physician Notes I examined the patient and reviewed the medical record, laboratory data and imaging studies. I agree with the assessment and plan of care as suggested by the advanced practice provider. Patient appears comfortable when asked if she is having any complaints she states she is only having some pain in her toes she states she is not having any nausea she states she ate well denies any active GI complaints at the current time. She has pneumobilia on her CT scan but she had an ERCP in 2021 and as per the records in the [facility] CT scan and that she has she also had pneumobilia I reviewed this her CT scan from August done at our institution with a recent CT scan and there are no changes in that her LFTs are also within normal limits I suspect this pneumobilia is secondary to post sphincterotomy and it has been stable with 2 CT scans done at our institution Thank you for allowing us to take part in the care of your patient please recall if there are any questions Subjective Pt was seen and evaluated, chart reviewed. Endorses foot pain, bilaterally to me this AM. Denies abd pain. Just finished breakfast, tolerated well. No nausea/vomiting. Review of record suggest she is s/p CCY w/ ERCP for CBD stones in 2021 at a [facility] facility w/ Dr. Oswaldo Mckeon MD CTAP 2023: Gallbladder and bile ducts: Redemonstrated moderate pneumobilia. No calcified stones. No ductal dilation. CTAP 2023: Liver: No abnormality noted. Gallbladder and bile ducts: Stable extensive pneumobilia and mild Intermatic biliary dilatation. Smooth hepatic contour. No visible mass. The gallbladder is surgically absent. Air noted in the common bile duct. No fluid collection in the cholecystectomy bed. Pancreas: Homogeneous enhancement. No mass, inflammation or ductal dilation. CTAP 2021: Approximately 4.6 x 2.7 cm low-density area is seenin the gallbladder fossa region likely due to postsurgical seroma. No air collection is observed in this area. Abscess is not completely excluded. Evaluation for abscess is limited due to lack of intravenous contrast medium.There is pneumobilia. Otherwise the liver is unremarkable. The spleen within normal limits. The pancreas appears atrophic. ERCP 10/06/21: - Minor papilla not seen. - The major papilla was adjacent to a diverticulum. - The major papilla appeared normal. - A filling defect consistent with a stone and sludge was seen on the cholangiogram. - Choledocholithiasis was found. Complete removal was accomplished by biliary sphincterotomy and balloon extraction. - A biliary sphincterotomy was performed. - The biliary tree was swept. Fluoro Report 10/06/21: Endoscope overlies the upper abdomen and the common duct is cannulated with contrast injected. There are multiple small filling defects in the common bile duct on the initial images which are not seen on the later images after balloon sweeping. Review of Systems Review of Systems: All other findings negative except as noted in HPI. Physical Exam Constitutional: WD/WN, vitals as above Gastrointestinal (Abdomen): normal bowel sounds, soft, nontender, no hepatosplenomegaly Results & Data Results & Data Vital Signs (Past 12 Hours) Vital Signs Temp Pulse Resp BP Pulse Ox O2 Del Method 05/08/24 06:53 36.4 C L 88 16 139/73 95 Room Air PG Care Time/CCT Total # of Minutes Spent Total Time Spent with Patient: Total time spent is greater than 50% in coordination of care (as documented) at patient's floor/unit and/or counseling patient: Coding Level of Care Code 71273 SUB INP/OBS CARE 3/50MIN Diagnoses Abnormal finding on imaging of liver R93.2
--- NOTE | 2024-05-08 10:45 | XRay Report ---
XR foot LT 2V CLINICAL HISTORY: Bilateral foot pain. COMPARISON: Left foot radiographs April 11, 2024. FINDINGS: Status post left second toe amputation. Tarsometatarsal joints are intact. There is hallux valgus. No fractures are identified. No areas of bony erosion are identified. Toes are suboptimally assessed given difficulty positioning with chronic deformity. There is osteopenia. IMPRESSION: 1. No acute fractures. No radiographic evidence for acute osteomyelitis. 2. Chronic deformity of the toes which makes evaluation difficult. 3. Osteopenia. ACT 112: Negative or not required by law. Electronically signed by: Rigo Harden M.D. 05/08/2024 10:44 AM
--- NOTE | 2024-05-08 10:55 | XRay Report ---
XR foot RT 2V CLINICAL HISTORY: B/l foot pain TECHNIQUE: 3 views of the right foot were obtained. Comparison: Comparison is made to foot radiograph 04/11/2024 FINDINGS: Exam is limited by patient positioning. Degenerative changes are seen and there is bony demineralizat ion. No soft tissue abnormality is seen. IMPRESSION: No acute fracture. Demineralization and degenerative changes are seen. ACT 112: Negative or not required by law. Electronically signed by: Thad Lees M.D. 05/08/2024 10:54 AM
--- NOTE | 2024-05-08 11:34 | Ultrasound Report ---
US venous doppler LE BI CLINICAL HISTORY: B/l calf pain TECHNIQUE: Bilateral lower extremity real-time compression venous ultrasound with Color Doppler imagi ng. Utilizing real-time ultrasonic imaging multiple real time high-resolution ultrasonic images with compression and noncompression maneuvers of the deep venous system in addition to color doppler imagi ng were performed from the common femoral vein through the proximal calf veins. COMPARISON: None available at the time of this dictation. FINDINGS/IMPRESSION: Diminutive veins are seen with mild but patent blood flow were visualized in the size. The evaluation of the veins of the bilateral calf is highly limited without clear compressibility. Within these saucedo itations, no definite DVT is seen although chronic DVT cannot be excluded. ACT 112: Negative or not required by law. Electronically signed by: Thad Lees M.D. 05/08/2024 11:33 AM
[2024-05-08] MEDS: MEROPENEM 500 MG in SYRINGE 0 ML IV SCH (12:14)
[2024-05-08] MEDS: MELATONIN 3 MG TAB PO PRN (19:27)
[2024-05-09 07:56] LABS: Alanine Aminotransferase 16 U/L (7-52); Albumin Globulin Ratio 1.4 (0.9-2); Albumin Level 3.9 gm/dl (3.4-5.0); Alkaline Phosphatase 88 U/L (34-104); Anion Gap 6 (3-11); Aspartate Aminotransferase 16 U/L (13-39); BUN Creatinine Ratio 29.7 (10-20); Bilirubin,Total 0.3 mg/dl (0.2-1.0); Blood Urea Nitrogen 19 mg/dl (6-23); Calcium 9.4 mg/dl (8.6-10.3); Carbon Dioxide 28 mmol/L (21-32); Chloride 103 mmol/L (98-107); Globulin 2.8 gm/dl (2.5-4.0); Glucose 107 mg/dl (70-99(Fasting)); Magnesium 1.9 mg/dl (1.7-2.4); Phosphorus 3.1 mg/dl (2.5-4.9); Potassium 4.3 mmol/L (3.5-5.1); Sodium 137 mmol/L (136-145); Total Protein 6.7 gm/dl (6.0-8.3)
[2024-05-09 07:57] LABS: Hematocrit (blood only) 31.6 % (37.0-47.0); Hemoglobin 9.9 g/dl (12.0-16.0); Mean Corpuscular Hemoglobin 25.4 pg (25.0-34.0); Mean Corpuscular Hgb Conc 31.3 g/dL (32.0-36.0); Mean Corpuscular Volume 81.2 fL (80.0-100.0); Mean Platelet Volume 10.7 fL (9.4-12.4); Platelet Count 264 K/uL (130-400); RDW Coefficient of Variation 17.2 % (11.5-14.5); RDW Standard Deviation 50.6 fL (36.4-46.3); Red Blood Count 3.89 M/uL (4.20-5.40); White Blood Count 11.19 K/ul (4.8-10.8)
[2024-05-09] MEDS: ERTAPENEM 1000MG 1,000 MG/10 ML SYR IV SCH (12:24)
--- NOTE | 2024-05-09 12:49 | Hospitalist Progress Note ---
Date of Service May 09, 2024 Assessment & Plan (1) Recurrent UTI: (2) Acute pyelonephritis: (3) Chronic indwelling Ng catheter: (4) Abnormal finding on imaging of liver: Plan Ruthann Oro is an 83-year-old female with past medical history significant for type 2 diabetes, hyperlipidemia, asthma, hypertension, history of CVA with left-sided hemiplegia/contractures [wheelchair/bedbound at baseline; lives with daughter], peripheral polyneuropathy, mild vascular dementia, history of CLL, history of DVT and history of recurrent UTIs s/p recent right ureteral stent placement [03/2024] who was transferred from [facility] to [facility] on 05/06/2024 for management of a recurrent UTI given that their facility is not equipped with urological services. Patient was recently here at [facility] earlier this month for acute confusion and complicated UTI. She has a right ureteral stent placed on 04/09/2024 during another previous admission. Urine cultures grew Marlene during her most recent prior admission and ID recommended fluconazole for 2 weeks and to monitor her QT interval. Trazodone, tramadol, Ativan and olanzapine were stopped last admission because of confusion from polypharmacy. Recurrent UTI, C/F Acute Bilateral Pyelonephritis Chronic Indwelling Ng Catheter, Chronic Right Ureteral Stent Placement 2/2 Hydronephrosis: Last Ng catheter exchange more than 3 weeks ago per daughter on arrival. Ng therefore exchanged on 05/07. * In 03/2024, urine culture grew Staph Aureus/MRSA; completed Zyvox. * Last admission with a d/c on 05/01/2024 with fluconazole for Marlene with last taken date on 05/08/2024. * She was started on Cipro as an outpatient on 05/05/2024; daughter reports she was taking this - culture from this time grew gram-negative bacilli. UA this admission positive for nitrites, 3+ LE, WBC>50 and 4+ bacteria. Was started on IV Rocephin in the ED. Urine culture this admission noted to be growing Enterobacter cloacae complex therefore IV Rocephin was switched to IV meropenem per pharmacy's recommendation on 05/08. Spoke with pharmacy again this morning as her urine culture sensitivities resulted --> IV meropenem switched to IV ertapenem. Mild leukocytosis noted today. Repeat CTAP with contrast on 05/07 displayed concern for bilateral pyelonephritis. Urology had previously signed off on the patient on 05/07 however I did reach back out again yesterday to ensure there were no recommendations for changes in her management given the concern for bilateral pyelonephritis on repeat imaging. Her right ureteral stent is in good position on the repeat CTAP therefore there is no need for surgical intervention at this time. Blood cultures with NGTD - continue to monitor. Continue PRN antiemetics. Abnormal Finding on Imaging of Liver: Patient had CTAP without contrast done on 05/06 at [facility] which revealed hepatic lucencies within the hepatic lobes. CTAP with contrast was recommended to r/o possibility of an abscess. Repeat CTAP with contrast on 05/07 redemonstrated moderate pneumobilia. Case discussed with GI yesterday --> "Review of records shows a CCY and ERCP w/ biliary sphincterotomy and balloon extraction for treatment of CBD stones at [facility] w/ Dr. Oswaldo Spence in 2021. The pneumobilia on CT imaging is likely related to ERCP w/ sphincterotomy given her normal LFTs. No acute indication for GI intervention." Chronic Anemia, H/O ZANE: Hgb remains stable, baseline Hgb ~9-11 per chart review. Continue home iron supplementation. Other Chronic Medical Conditions: * HTN - Amlodipine was started last admission; BP remains stable, can continue. H/O DVT - On Eliquis. GERD - Continue Protonix. * Depression - Continue citalopram. HLD - Continue statin. COPD - Continue Incruse Ellipta, PRN albuterol inhaler. H/O CLL - Does not follow with onc. * H/O CVA - Left-sided hemiplegia/contractures. Bedbound at baseline, soft diet. LUE restriction order placed. Patient lives with daughter, Anita, at baseline. 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 Code Status: DNR/DNI - No Resuscitation PCP: Lolis Tam DO Disposition: Admitted in Med/Surg - Plan for patient to return home when medically stable for discharge, already has services established with [facility]. * Updated both the patient's daughter, Anita [ ], and granddaughter, Ritu [ ], regarding her clinical course thus far. 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 Both Anita and Ritu are requesting routine updates. Patient seen in collaboration with Dr. Romero. Please see addendum. I spent a total of 60 minutes coordinating, documenting, and providing care for this patient excluding time spent in the performance of separately billed services. This included personally reviewing all current laboratories and imaging studies, medical reconciliation, outpatient chart review and discussion with specialists. This chart was completed in part utilizing Speech Voice Recognition Software. Grammatical errors, random word insertions, pronoun errors, and incomplete sentences are an occasional consequence of this system due to software limitations, ambient noise, and hardware issues. Any formal questions or concerns about the content, text, or information contained within the body of this dictation should be directly addressed to the provider for clarification. Admission and Anticipated Discharge Date Admission Date: May 06, 2024 Supervising Physician Co-Signing Physician Notes Pt seen and examined by me, care coordinated w/ JUSTIN, pls refer to her note above for further detail. Pt was transferred from outside hospital. She has ng and ureteral stents - per urology no need to exchange at this time (about every 6 months).Pt is currently laying in bed in NAD. Discussed w/ urology previously- cont. current management w/ abx. GI was consulted as well - reviewed CT abd. pelvis - for posit. pneumobilia, at this time no new recommendations, likely secondary to the past procedure. Pt is currently laying in bed in NAD. Not moving LLE, contractured LUE. Abdominal discomfort seems now resolved however she has intermittent nausea. Urine cultx posit. for Enterobacter cloacae - currently pt on ertapenem. Cont. to closely monitor. MD Heather Subjective Patient seen and examined at bedside this morning with Dr. Romero. She was alert and oriented to direct questioning, able to answer simple questions once again. Still reporting some abdominal discomfort and intermittent nausea however she did eat breakfast this morning without any incidences of vomiting. She is still very focused on the positioning of her feet and blankets. She was reporting some mild shortness of breath this morning and was on 2L via nasal cannula during our conversation however she never became hypoxic. Mentions she had a bowel movement this morning however she has been incontinent of stool during this admission. Review of Systems Review of Systems: Unable to properly obtain secondary to patient's cognitive status. Physical Exam Physical Exam: General: NAD, laying down in bed, A+O to direct questioning with appropriate responses, expressive aphasia and cognitive issues at baseline. HEENT: Normocephalic, atraumatic. Conjunctivae normal, anicteric sclerae. External ear and nose normal, oropharynx slightly dry. Respiratory: Normal respiratory effort, lungs clear to auscultation, no wheeze/rales/rhonchi. No accessory muscle use. Cardiovascular: Regular rate, rhythm, normal peripheral pulses, no BLE edema. Vessels: No JVD. Abdomen/GI: Normal bowel sounds, soft, mild abdominal distention, nontender to palpation in all quadrants. : Chronic indwelling Ng catheter in place and draining dark yellow urine. Extremities/Musculoskeletal: No cyanosis or clubbing, bedbound at baseline, severely contracted LUE. Neurologic: No overt focal deficits, CN's II-XI not formally tested but appear grossly intact bilaterally. Skin: No rashes, normal color, warm/dry. Results & Data Results & Data Vital Signs (Past 12 Hours) Vital Signs Temp Pulse Resp BP Pulse Ox O2 Del Method O2 Flow Rate 05/09/24 08:13 36.6 C 66 18 116/64 94 Room Air 05/09/24 07:15 Nasal Cannula 2 Laboratory Results Short CBC 05/09/24 Range/Units 06:52 WBC 11.19 H (4.8-10.8) K/ul Hgb 9.9 L (12.0-16.0) g/dl Hct 31.6 L (37.0-47.0) % Plt Count 264 (130-400) K/uL BMP 05/09/24 06:52 Sodium 137 Potassium 4.3 Chloride 103 Carbon Dioxide 28 BUN 19 Creatinine 0.64 Glucose 107 H Calcium 9.4 Liver Function 05/09/24 Range/Units 06:52 Total Bilirubin 0.3 (0.2-1.0) mg/dl AST 16 (13-39) U/L ALT 16 (7-52) U/L Alkaline Phosphatase 88 (34-104) U/L Albumin 3.9 (3.4-5.0) gm/dl
[2024-05-10 06:29] LABS: Hematocrit (blood only) 35.8 % (37.0-47.0); Hemoglobin 11.4 g/dl (12.0-16.0); Mean Corpuscular Hemoglobin 25.6 pg (25.0-34.0); Mean Corpuscular Hgb Conc 31.8 g/dL (32.0-36.0); Mean Corpuscular Volume 80.4 fL (80.0-100.0); Mean Platelet Volume 9.7 fL (9.4-12.4); Platelet Count 278 K/uL (130-400); RDW Coefficient of Variation 17.3 % (11.5-14.5); Red Blood Count 4.45 M/uL (4.20-5.40); White Blood Count 9.97 K/ul (4.8-10.8)
[2024-05-10 06:57] LABS: Anion Gap 6 (3-11); BUN Creatinine Ratio 25.9 (10-20); Blood Urea Nitrogen 15 mg/dl (6-23); Calcium 9.8 mg/dl (8.6-10.3); Carbon Dioxide 30 mmol/L (21-32); Chloride 100 mmol/L (98-107); Glucose 107 mg/dl (70-99(Fasting)); Magnesium 1.8 mg/dl (1.7-2.4); Phosphorus 2.9 mg/dl (2.5-4.9); Potassium 4.4 mmol/L (3.5-5.1); Sodium 136 mmol/L (136-145)
--- NOTE | 2024-05-10 19:03 | Hospitalist Progress Note ---
Date of Service May 10, 2024 Assessment & Plan (1) Recurrent UTI: (2) Acute pyelonephritis: (3) Chronic indwelling Ramirez catheter: (4) Abnormal finding on imaging of liver: Plan Ruthann Oro is an 83-year-old female with past medical history significant for type 2 diabetes, hyperlipidemia, asthma, hypertension, history of CVA with left-sided hemiplegia/contractures [wheelchair/bedbound at baseline; lives with daughter], peripheral polyneuropathy, mild vascular dementia, history of CLL, history of DVT and history of recurrent UTIs s/p recent right ureteral stent placement [03/2024] who was transferred from [facility] to [facility] on 05/06/2024 for management of a recurrent UTI given that their facility is not equipped with urological services. Patient was recently here at [facility] earlier this month for acute confusion and complicated UTI. She has a right ureteral stent placed on 04/09/2024 during another previous admission. Urine cultures grew Marlene during her most recent prior admission and ID recommended fluconazole for 2 weeks and to monitor her QT interval. Trazodone, tramadol, Ativan and olanzapine were stopped last admission because of confusion from polypharmacy. Recurrent UTI, C/F Acute Bilateral Pyelonephritis Chronic Indwelling Ramirez Catheter, Chronic Right Ureteral Stent Placement 2/2 Hydronephrosis: Last Ramirez catheter exchange more than 3 weeks ago per daughter on arrival. Ramirez therefore exchanged on 05/07. * In 03/2024, urine culture grew Staph Aureus/MRSA; completed Zyvox. * Last admission with a d/c on 05/01/2024 with fluconazole for Marlene with last taken date on 05/08/2024. * She was started on Cipro as an outpatient on 05/05/2024; daughter reports she was taking this - culture from this time grew gram-negative bacilli. UA this admission positive for nitrites, 3+ LE, WBC>50 and 4+ bacteria. Was started on IV Rocephin in the ED. Urine culture this admission noted to be growing Enterobacter cloacae complex therefore IV Rocephin was switched to IV meropenem per pharmacy's recommendation on 05/08. Prior attending spoke with pharmacy again 05/09 morning as her urine culture sensitivities resulted --> IV meropenem switched to IV ertapenem. Mild leukocytosis noted today. Repeat CTAP with contrast on 05/07 displayed concern for bilateral pyelonephritis. Urology had previously signed off on the patient on 05/07 however prior attending did reach back out again 05/08 to ensure there were no recommendations for changes in her management given the concern for bilateral pyelonephritis on repeat imaging. Her right ureteral stent is in good position on the repeat CTAP therefore there is no need for surgical intervention at this time. Blood cultures with NGTD - continue to monitor. Continue PRN antiemetics. Abnormal Finding on Imaging of Liver: Patient had CTAP without contrast done on 05/06 at [facility] which revealed hepatic lucencies within the hepatic lobes. CTAP with contrast was recommended to r/o possibility of an abscess. Repeat CTAP with contrast on 05/07 redemonstrated moderate pneumobilia. Case discussed with GI yesterday --> "Review of records shows a CCY and ERCP w/ biliary sphincterotomy and balloon extraction for treatment of CBD stones at [facility] w/ Dr. Oswaldo Spence in 2021. The pneumobilia on CT imaging is likely related to ERCP w/ sphincterotomy given her normal LFTs. No acute indication for GI intervention." Chronic Anemia, H/O ZANE: Hgb remains stable, baseline Hgb ~9-11 per chart review. Continue home iron supplementation. Other Chronic Medical Conditions: * HTN - Amlodipine was started last admission; BP remains stable, can continue. H/O DVT - On Eliquis. GERD - Continue Protonix. * Depression - Continue citalopram. HLD - Continue statin. COPD - Continue Incruse Ellipta, PRN albuterol inhaler. H/O CLL - Does not follow with onc. * H/O CVA - Left-sided hemiplegia/contractures. Bedbound at baseline, soft diet. LUE restriction order placed. Patient lives with daughter, Anita, at baseline. 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 Code Status: DNR/DNI - No Resuscitation PCP: Lolis Tam DO Disposition: Admitted in Med/Surg - Plan for patient to return home when medically stable for discharge, already has services established with [facility]. Patient's daughter, Anita [ ], and granddaughter, Ritu [ ]. Admission and Anticipated Discharge Date Admission Date: May 06, 2024 Subjective Patient seen and examined at bedside. Patient was lying in bed, on 2 L oxygen via nasal cannula, reports eating okay and moving bowels okay, denies pain or sore throat or cough. Physical Exam Physical Exam: General: NAD, laying down in bed, A+O to direct questioning with appropriate responses, expressive aphasia and cognitive issues at baseline. HEENT: Normocephalic, atraumatic. Conjunctivae normal, anicteric sclerae. External ear and nose normal, oropharynx moist. Respiratory: Normal respiratory effort, lungs clear to auscultation, no wheeze/rales/rhonchi. No accessory muscle use. Cardiovascular: Regular rate, rhythm, normal peripheral pulses, no BLE edema. Vessels: No JVD. Abdomen/GI: Normal bowel sounds, soft, mild abdominal distention, nontender to palpation in all quadrants. : Chronic indwelling Ramirez catheter in place and draining dark yellow urine. Extremities/Musculoskeletal: No cyanosis or clubbing, bedbound at baseline, severely contracted LUE. Neurologic: No overt focal deficits, CN's II-XI not formally tested but appear grossly intact bilaterally. Skin: No rashes, normal color, warm/dry. Results & Data Results & Data Vital Signs (Past 12 Hours) Vital Signs Temp Pulse Resp BP Pulse Ox O2 Del Method O2 Flow Rate 05/10/24 15:57 36.6 C 88 18 136/70 96 Room Air 05/10/24 07:50 Nasal Cannula 2 05/10/24 07:06 36.6 C 88 18 137/74 96 Nasal Cannula
--- NOTE | 2024-05-11 12:51 | Discharge Summary ---
Date of Service May 11, 2024 Admission HPI Per Admitting Provider 83-year-old female with past medical history significant for type 2 diabetes, hyperlipidemia, asthma, hypertension, history of CVA and hemiplegia and wheelchair and bedbound, peripheral polyneuropathy, mild vascular dementia, history of CLL, history of DVT, lives with her daughter, history of recurrent UTI status post ureteral stent placement was transferred from [facility] because of recurrent UTI and because of ureteral stent and no urological services there. Patient is alert and oriented x 3. Able to give her history. Patient states she was having blood in the urine that is the reason she went to the hospital.As per [place] notes she brought there for confusion. Denies any fevers. Denies any abdominal pain. Normal bowel movements. Denies any chest pain or shortness of breath. No nausea. Appetite is okay. Eating soft food. Says she could not ambulate and cannot move left extremities. Denies any headache. No runny nose or sore throat. No cough. Currently hemodynamics are okay. Patient was recently in the hospital for acute confusion and complicated UTI. She has a right ureteral stent placed on 04/09. Urine cultures grew Marlene and ID recommended fluconazole for 2 weeks and to monitor QT interval. Last admit trazodone, tramadol, Ativan and olanzapine were stopped because of confusion from polypharmacy. Tried to call her daughter but went to voicemail. Past medical history. As mentioned above Past surgical history. Dilatation curettage. Ligation of oviducts. Appendectomy. Cholecystectomy. Total hysterectomy. Social history. Lives with her daughter. Smoked average of 0.5 pack a day for 20 years. Quit in 2013. No alcohol use. No drug use. Admission Exam Per Admitting Provider General- Not in acute distress. Head- atraumatic ENT- oropharynx clear Neck- supple, no JVD. Lungs- clear to auscultation no wheezing or crackles Heart- regular rhythm; no murmur, no gallop. Abdomen- normal bowel sounds, soft, nontender, no distension. Extremities- no pretibial edema, no erythema seen. Neuro- alert, oriented x 3; no facial palsy; no dysarthria. Principal Diagnosis Recurrent UTI, concern for acute bilateral pyelonephritis HO Chronic indwelling Ramirez catheter, chronic right ureteral stent placement secondary to hydronephrosis. Discharge Exam General: NAD, laying down in bed, A+O to direct questioning with appropriate responses, expressive aphasia and cognitive issues at baseline. HEENT: Normocephalic, atraumatic. Conjunctivae normal, anicteric sclerae. External ear and nose normal, oropharynx moist. Respiratory: Normal respiratory effort, lungs clear to auscultation, no wheeze/rales/rhonchi. No accessory muscle use. Cardiovascular: Regular rate, rhythm, normal peripheral pulses, no BLE edema. Vessels: No JVD. Abdomen/GI: Normal bowel sounds, soft, mild abdominal distention, nontender to palpation in all quadrants. : Chronic indwelling Ramirez catheter in place and draining dark yellow urine. Extremities/Musculoskeletal: No cyanosis or clubbing, bedbound at baseline, severely contracted LUE. Neurologic: No overt focal deficits, CN's II-XI not formally tested but appear grossly intact bilaterally. Skin: No rashes, normal color, warm/dry. Discharge Data Allergies Allergy/AdvReac Type Severity Reaction Status Date / Time ibuprofen Allergy Unknown Unknown Unverified 09/04/23 17:30 Iodinated Contrast Media Allergy Unknown Unknown Unverified 09/04/23 17:30 iodine Allergy Unknown Unknown Unverified 09/04/23 17:30 metformin Allergy Unknown Unknown Unverified 09/04/23 17:30 naproxen Allergy Unknown Unknown Unverified 09/04/23 17:30 Penicillins Allergy Unknown Unknown Unverified 04/24/24 15:54 pregabalin Allergy Unknown Unknown Unverified 09/04/23 17:30 Consultations 05/07/24 08:00 Consult Urology Routine 05/07/24 15:37 Consult Gastroenterology Routine Ordered Studies 05/07/24 15:45 CT Abd and Pelvis [CT abd pelvis IV con only] Routine 05/08/24 09:20 US venous doppler LE Urgent Hospital Course (1) Recurrent UTI: (2) Acute pyelonephritis: (3) Chronic indwelling Ramirez catheter: (4) Abnormal finding on imaging of liver: Yefri Oro is an 83-year-old female with past medical history significant for type 2 diabetes, hyperlipidemia, asthma, hypertension, history of CVA with left-sided hemiplegia/contractures [wheelchair/bedbound at baseline; lives with daughter], peripheral polyneuropathy, mild vascular dementia, history of CLL, history of DVT and history of recurrent UTIs s/p recent right ureteral stent placement [03/2024] who was transferred from [facility] to [facility] on 05/06/2024 for management of a recurrent UTI given that their facility is not equipped with urological services. Patient was recently here at [facility] earlier this month for acute confusion and complicated UTI. She has a right ureteral stent placed on 04/09/2024 during another previous admission. Urine cultures grew Marlene during her most recent prior admission and ID recommended fluconazole for 2 weeks and to monitor her QT interval. Trazodone, tramadol, Ativan and olanzapine were stopped last admission because of confusion from polypharmacy. Recurrent UTI, C/F Acute Bilateral Pyelonephritis Chronic Indwelling Ramirez Catheter, Chronic Right Ureteral Stent Placement 2/2 Hydronephrosis: Last Ramirez catheter exchange more than 3 weeks ago per daughter on arrival. Ramirez therefore exchanged on 05/07. * In 03/2024, urine culture grew Staph Aureus/MRSA; completed Zyvox. * Last admission with a d/c on 05/01/2024 with fluconazole for Marlene with last taken date on 05/08/2024. * She was started on Cipro as an outpatient on 05/05/2024; daughter reports she was taking this - culture from this time grew gram-negative bacilli. UA this admission positive for nitrites, 3+ LE, WBC>50 and 4+ bacteria. Was started on IV Rocephin in the ED. Urine culture this admission noted to be growing Enterobacter cloacae complex therefore IV Rocephin was switched to IV meropenem per pharmacy's recommendation on 05/08. Prior attending spoke with pharmacy again 05/09 morning as her urine culture sensitivities resulted --> IV meropenem switched to IV ertapenem. Urology had evaluated the patient. Appreciate recommendation. Patient will be discharged on oral Levaquin to complete 10-day course for complicated UTI. Patient to follow-up with urology as prior. Abnormal Finding on Imaging of Liver: Patient had CTAP without contrast done on 05/06 at [facility] which revealed hepatic lucencies within the hepatic lobes. CTAP with contrast was recommended to r/o possibility of an abscess. Repeat CTAP with contrast on 05/07 redemonstrated moderate pneumobilia. Case discussed with GI yesterday --> "Review of records shows a CCY and ERCP w/ biliary sphincterotomy and balloon extraction for treatment of CBD stones at [facility] w/ Dr. Oswaldo Spence in 2021. The pneumobilia on CT imaging is likely related to ERCP w/ sphincterotomy given her normal LFTs. No acute indication for GI intervention." Chronic Anemia, H/O ZANE: Hgb remains stable, baseline Hgb ~9-11 per chart review. Continue home iron supplementation. Other Chronic Medical Conditions: * HTN - Amlodipine was started last admission; BP remains stable, can continue. H/O DVT - On Eliquis. GERD - Continue Protonix. * Depression - Continue citalopram. HLD - Continue statin. COPD - Continue Incruse Ellipta, PRN albuterol inhaler. H/O CLL - Does not follow with onc. * H/O CVA - Left-sided hemiplegia/contractures. Bedbound at baseline, soft diet. LUE restriction order placed. Patient lives with daughter, Anita, at baseline. DVT Prophylaxis: On Eliquis REWINDER - continue. Code Status: DNR/DNI - No Resuscitation PCP: Lolis Tam DO Disposition: Admitted in Med/Surg - Plan for patient to return home when medically stable for discharge, already has services established with [facility]. Patient's daughter, Anita [ ], and granddaughter, Ritu [ ]. The patient's daughter Mary was given a phone call and updated on plan of care. She voiced understanding and was agreeable. Patient being discharged to home with home health and family support with following instructions at the point of discharge: Follow-up with your primary care physician within a week time and likely you will need labs CBC/CMP/magnesium/phosphorus. You were treated for complicated UTI, You received IV ertapenem while in the hospital, you will be discharged on oral levofloxacin to complete treatment course. Continue with probiotics for the duration of antibiotic. Follow-up with your urology as prior upon discharge. Take your medications as prescribed. Please make sure that you are able to get your medications today by calling your pharmacy before you leave the hospital so that your treatment continuity is not broken. Home Health Attestation I certify that this patient is under my care and that I, or a physicians assistant baseball coach working with me, had a face to-face encounter that meets the home health [id number] encounter requirements with this patient. The encounter with the patient was in whole, or in part, for the following medical condition, which is the primary reason for home health care (list medical condition): recurring UTI and AMS I certify that, based on my findings, the following services are medically necessary home health services: My clinical findings support the need for the above services because: OT Assess ADL Status and Restore Function w ADLs PT Assessment for Endurance / Balance / Strength PT Eval for Safety and Mobility PT Eval for Safety, Gait Training, Assistive Devices PT Gait and Balance Training, Strengthening and Safety Skilled Nsg Assessment Further, I certify that my clinical findings support that this patient is homebound (i.e. absences from home require considerable and taxing effort and are for medical reasons or jehovah's witness services or infrequently or of short duration when for other reasons) because: Maximum Assistance with All Activities Transportation Assistance/Unable to Leave Home Unassisted Certification for Home Health Services: Based on the above findings, I certify that this patient is confined to the home and needs intermittent custodial care, physical therapy and/or speech therapy or continues to need occupational therapy. The patient is under my care, and I have initiated the establishment of the plan of care. This patient will be followed by a physician who will periodically review the plan of care. Total Time Total Time Spent Total Time Spent (In Minutes): 45 Discharge Plan Discharge Items Patient Disposition: Home - Home Health Services Reason For Visit: RECURRING UTI AND AMS Discharge Diagnosis: Recurrent UTI, concern for acute bilateral pyelonephritis HO Chronic indwelling Ramirez catheter, chronic right ureteral stent placement secondary to hydronephrosis. Activity: Resume your previous activity Non-emergency contact: Primary Care Provider Call non-emergency contact if: you have any medication questions and your symptoms worsen Follow-up/Referrals: Lolis Tam DO [Primary Care Provider] - (Date & Time 05/16/2024 11:00 AM Provider Lolis Tam DO Department [facility], [place] ) Diet: Heart Healthy Diet Texture: Dental soft (bite-sized) Addtl Attending Provider Instructions: Follow-up with your primary care physician within a week time and likely you will need labs CBC/CMP/magnesium/phosphorus. You were treated for complicated UTI, You received IV ertapenem while in the hospital, you will be discharged on oral levofloxacin to complete treatment course. Continue with probiotics for the duration of antibiotic. Follow-up with your urology as prior upon discharge. Take your medications as prescribed. Please make sure that you are able to get your medications today by calling your pharmacy before you leave the hospital so that your treatment continuity is not broken. Pending Studies at Discharge: Yes Stand-Alone Forms: My [facility], Smoking Cessation Medications and DC Order Prescriptions: New diclofenac sodium [Voltaren Arthritis Pain] 1 % Gel 2 g EXT BID Qty: 100 0RF levofloxacin 750 mg tablet 750 mg PO DAILY 7 Days Qty: 7 0RF L. acidophilus/Bifid. animalis 2 billion cell capsule 1 cap PO DAILY 14 Days Qty: 14 0RF Continued albuterol sulfate 2.5 mg /3 mL (0.083 %) solution for nebulization 2.5 mg continuous nebulization Q4H PRN (Reason: Shortness Of Breath Or Wheezing) polyethylene glycol 3350 17 gram powder in packet 17 g PO DAILY atorvastatin 10 mg tablet 10 mg PO DAILY amlodipine 5 mg tablet 10 mg PO DAILY citalopram 20 mg tablet 20 mg PO DAILY pantoprazole 40 mg tablet,delayed release (DR/EC) 40 mg PO DAILY docusate sodium 100 mg capsule 100 mg PO BID albuterol sulfate 90 mcg/actuation HFA aerosol inhaler 2 puff INHALATION Q4H PRN (Reason: Shortness Of Breath Or Wheezing) duloxetine 30 mg capsule,delayed release(DR/EC) 30 mg PO DAILY Eliquis 2.5 mg tablet 2.5 mg PO BID Incruse Ellipta 62.5 mcg/actuation blister with device 1 inh INHALATION DAILY fluticasone propion-salmeterol 113-14 mcg/actuation aerosol powdr breath activated 1 inh INHALATION BID ferrous sulfate 324 mg (65 mg iron) tablet,delayed release (DR/EC) 324 mg PO DAILY cyanocobalamin (vitamin B-12) 1,000 mcg Tablet 1,000 mcg PO DAILY melatonin 5 mg Tablet 5 mg PO HS PRN (Reason: Insomnia) Discontinued fluconazole 100 mg tablet 200 mg PO DAILY Rx Instructions: end date 05/09/24 ciprofloxacin HCl 250 mg tablet 250 mg PO BID Rx Instructions: end date 05/15/24 Discharge Orders: Discharge Order (Routine); Ordered 05/11/24 Ordered By: Juli Hussein Admission Data Admit Date/Time: 05/06/24 22:37 Attending Provider: Juli Hussein Admit Provider: Obey Henderson Primary Care Provider: Lolis Tam Other Providers: Obey Henderson; [facility]; Jose Forbes
[2024-05-11 15:48] VITALS: BP 148/79; PULSE 96; RESP 18; TEMP 97.5; O2SAT 94
== END 2024-05-11 19:16 | disposition home health service (06) | DRG 690 ==
LOC: 3W 22:37 → SUATTDRO 22:37
DX: Z88.0 Allergy status to penicillin; R93.2 Abnormal findings on diagnostic imaging of liver and biliary tract; Z74.01 Bed confinement status; E78.5 Hyperlipidemia, unspecified; F01.A0 Vascular dementia, mild, without behavioral disturbance, psychotic disturbance, mood disturbance, and anxiety; F32.A Depression, unspecified; Z87.891 Personal history of nicotine dependence; I10 Essential (primary) hypertension; J45.909 Unspecified asthma, uncomplicated; Z66 Do not resuscitate; Z91.041 Radiographic dye allergy status; C91.10 Chronic lymphocytic leukemia of B-cell type not having achieved remission; D64.9 Anemia, unspecified; B96.89 Other specified bacterial agents as the cause of diseases classified elsewhere; Z86.718 Personal history of other venous thrombosis and embolism; Z79.01 Long term (current) use of anticoagulants; I69.354 Hemiplegia and hemiparesis following cerebral infarction affecting left non-dominant side; Z96.0 Presence of urogenital implants; K21.9 Gastro-esophageal reflux disease without esophagitis; E11.42 Type 2 diabetes mellitus with diabetic polyneuropathy; N13.6 Pyonephrosis; N10 Acute pyelonephritis

== ENCOUNTER 2024-06-15 14:37 | Inpatient (IN) ==
--- NOTE | 2024-06-15 14:52 | Emergency Department Note ---
Impression & Plan AMS (altered mental status), Acute UTI (urinary tract infection) ED Provider Note HISTORY OF PRESENT ILLNESS: Patient is an 83-year-old female presenting with reported worsening altered mental status. Patient presents with EMS who provides most of the history. Patient is reportedly baseline confused but family reported that the patient seemed more confused today than normal. She is currently being treated for a complicated UTI with meropenem in the outpatient setting. On arrival to the ER, the patient is very confused and unable to provide any meaningful history. I called daughter to get more history. Daughter reports patient was very repetitive this morning. Kept asking for same things over and over. Daughter reports patient had "no idea what was happening." Stated she "wanted her cup when her cup was in her hand." States symptoms started this AM. ROS: as above PHYSICAL EXAM: Constitutional: Patient appears in no acute distress. HENT: Head: Normocephalic and atraumatic. Eyes: EOMI, PERRL Mouth/Throat: Mucous membranes moist. Neck: Trachea midline. Neck supple. Cardiovascular: RRR, No murmurs, rubs or gallops. Intact distal pulses. Pulmonary/Chest: No respiratory distress. Breath sounds clear and equal bilaterally. No wheezes or rales. Abdominal: Abdomen soft, no tenderness, rebound or guarding. Musculoskeletal: No edema, tenderness or deformity noted. Skin: Warm and dry. No rash, erythema, pallor or cyanosis Neurological: Alert to self. CN II-XII grossly intact MDM: - Vitals signs showed tachycardia and hypoxia. Patient started on supplemental oxygen. - History obtained via EMS, given patient's confusion. History as above. - Chronic conditions affecting care: chronic indwelling ng; hx of MRSA infection; GERD; DM-2; HTN - Differential diagnoses include, but are not limited to: CVA; intracranial hemorrhage; ACS; pneumonia; UTI; electrolyte abnormality - Order placed for continuous cardiac monitoring. At this time, monitor showed rate of 92 bpm with normal sinus rhythm, per my interpretation. - External medical records reviewed. Discharge summary dated 05/11/2024 was reviewed. Patient was admitted at that time due to a recurrent UTI and acute pyelonephritis. She grew Staph aureus/MRSA and completed a course of Zyvox in March 2024. Her urine culture on 05/05/2024 grew gram-negative bacilli. She ended up growing Enterobacter cloacae complex and was transitioned to IV ertopenem. It appears she was discharged on oral Levaquin to complete a 10-day course for complicated UTI. - EKG interpreted by myself showed normal sinus rhythm. Rate 91 bpm. QT 358. No acute ischemic changes. - Laboratory workup interpreted by myself showed normal WBC; normal PT/INR; stable electrolytes; normal troponin; normal lactate; normal procalcitonin - Blood cultures obtained - UA showed evidence of infection - CT head wo contrast negative for acute pathology - CXR negative for pneumonia, per my interpretation - Discussed results with daughter via the phone. She reports concern about the patient's continued confusion worse than her baseline confusion and requested the patient be admitted to the hospital for further evaluation and management. - Discussion was had with child welfare caseworker about patient's case and need for admission - Hospitalist consulted for admission - [facility] ASSESSMENT AND PLAN: Diagnosis: altered mental status; acute UTI Plan: admit Past Med/Surg History Problem List (Updated 06/15/24 @ 17:50 by Marilee Payan MD) Acute UTI (urinary tract infection) (Acute) AMS (altered mental status) (Acute) Chronic indwelling Ng catheter Acute pyelonephritis Abnormal finding on imaging of liver Recurrent UTI Advanced care planning/counseling discussion Palliative care by specialist Weakness generalized Hx MRSA infection (Acute) Leukocytosis (Acute) Failure of outpatient treatment (Acute) Acute confusion (Acute) Ureteral stent present Delirium Hydronephrosis (Acute) Choledocholithiasis Urinary tract obstruction by kidney stone Nephrolithiasis Abnormal CBC UTI (urinary tract infection) (Acute) Chronic pain No pertinent past surgical history COVID-19 (Acute) weaned off oxygen GERD (gastroesophageal reflux disease) Hyperlipidemia Insomnia Rheumatoid arthritis Type 2 diabetes mellitus with diabetic polyneuropathy Major depressive disorder Vascular dementia Constipation Acute osteomyelitis of toe (Acute) Medical History History of deep venous thrombosis (DVT) of distal vein of right lower extremity Anticoagulated History of CVA (cerebrovascular accident) Hypertension Diabetes Social History Smoking Status: Current every day smoker Tobacco Type: Cigarettes Second Hand Exposure: No; Do You Dip or Chew Tobacco: No; Hx Alcohol Use: No Hx Substance Use: No Preferred Language: Lithuanian Communication Ability: Impaired Communication Ability Comment: disoriented, difficulty holding items Cupola Tender Required: No Beliefs That Will Affect Care: None Current Living Situation: Family Current Living Situation Comment: lives with daughter Feels Safe at Home: Yes Assistive Devices: Hospital Bed, Mechanical Lift, Oxygen - at Night and Wheelchair Allergies Allergies Allergy/AdvReac Type Severity Reaction Status Date / Time ibuprofen Allergy Unknown Unknown Unverified 09/04/23 17:30 Iodinated Contrast Media Allergy Unknown Unknown Unverified 09/04/23 17:30 iodine Allergy Unknown Unknown Unverified 09/04/23 17:30 metformin Allergy Unknown Unknown Unverified 09/04/23 17:30 naproxen Allergy Unknown Unknown Unverified 09/04/23 17:30 Penicillins Allergy Unknown Unknown Unverified 04/24/24 15:54 pregabalin Allergy Unknown Unknown Unverified 09/04/23 17:30 Home Meds Home Medications Medication Instructions Recorded Confirmed albuterol sulfate 2.5 mg/3 mL 2.5 mg continuous nebulization Q4H 05/06/24 05/06/24 (0.083 %) solution for nebulization PRN Shortness Of Breath Or Wheezing albuterol sulfate 90 mcg/actuation 2 puff inhalation Q4H PRN 05/06/24 05/06/24 aerosol inhaler Shortness Of Breath Or Wheezing amlodipine 5 mg tablet 10 mg PO DAILY 05/06/24 05/06/24 apixaban 2.5 mg tablet (Eliquis) 2.5 mg PO BID 05/06/24 05/06/24 atorvastatin 10 mg tablet 10 mg PO DAILY 05/06/24 05/06/24 citalopram 20 mg tablet 20 mg PO DAILY 05/06/24 05/06/24 cyanocobalamin (vitamin B-12) 1,000 mcg PO DAILY 05/06/24 05/06/24 1,000 mcg tablet docusate sodium 100 mg capsule 100 mg PO BID 05/06/24 05/06/24 duloxetine 30 mg capsule,delayed 30 mg PO DAILY 05/06/24 05/06/24 release ferrous sulfate 324 mg (65 mg 324 mg PO DAILY 05/06/24 05/06/24 iron) tablet,delayed release fluticasone 113 mcg-salmeterol 14 1 inh inhalation BID 05/06/24 05/06/24 mcg/actuation breath activated powdr melatonin 5 mg tablet 5 mg PO HS PRN Insomnia 05/06/24 05/06/24 pantoprazole 40 mg tablet,delayed 40 mg PO DAILY 05/06/24 05/06/24 release polyethylene glycol 3350 17 gram 17 g PO DAILY 05/06/24 05/06/24 oral powder packet umeclidinium 62.5 mcg/actuation 1 inh inhalation DAILY 05/06/24 05/06/24 blister powder for inhalation (Incruse Ellipta) Previous Rx's Medication Instructions Recorded diclofenac sodium 1 % topical gel 2 g EXT BID #100 grams 05/11/24 (Voltaren Arthritis Pain) Results & Data (ED) Vital Signs Vital Signs - 24 hr 06/15/24 14:48 06/15/24 14:50 06/15/24 15:01 Temperature 37.1 C Temperature Source Oral Pulse Rate 91 H 95 H Pulse Rate [Right Finger] Respiratory Rate 18 22 Respiratory Effort / Characteristics Non-Labored Spontaneous Respiratory Depth Normal Respiratory Pattern Blood Pressure 124/98 Blood Pressure [Right Arm] Blood Pressure Mean 106 Blood Pressure Mean [Right Arm] Pulse Oximetry 85 L 96 92 Oxygen Delivery Method Room Air Nasal Cannula Room Air Oxygen Flow Rate 2 Sepsis Recent Fever Within 48 Hours No Sepsis New/Unexplained Change in Mental Status No Sepsis Action Taken by Nursing No Action Required 06/15/24 16:04 06/15/24 17:18 06/15/24 17:33 Temperature Temperature Source Pulse Rate 92 H Pulse Rate [Right Finger] 92 H 92 H Respiratory Rate 18 20 Respiratory Effort / Characteristics Non-Labored Spontaneous Non-Labored Spontaneous Respiratory Depth Normal Normal Respiratory Pattern Regular Blood Pressure Blood Pressure [Right Arm] 144/94 H 166/89 H Blood Pressure Mean Blood Pressure Mean [Right Arm] 110 114 Pulse Oximetry 93 94 Oxygen Delivery Method Room Air Room Air Oxygen Flow Rate Sepsis Recent Fever Within 48 Hours Sepsis New/Unexplained Change in Mental Status Sepsis Action Taken by Nursing Laboratory Data 06/15/24 15:30 06/15/24 15:30 Lab Results 06/15/24 06/15/24 Range/Units 15:30 17:13 WBC 8.14 (4.8-10.8) K/ul RBC 4.20 (4.20-5.40) M/uL Hgb 11.2 L (12.0-16.0) g/dl Hct 35.4 L (37.0-47.0) % MCV 84.3 (80.0-100.0) fL MCH 26.7 (25.0-34.0) pg MCHC 31.6 L (32.0-36.0) g/dL RDW Std Deviation 50.4 H (36.4-46.3) fL RDW Coeff of Atilio 16.5 H (11.5-14.5) % Plt Count 236 (130-400) K/uL MPV 9.8 (9.4-12.4) fL Immature Gran % (Auto) 0.4 % Neut % (Auto) 55.8 % Lymph % (Auto) 34.0 % [place] % (Auto) 8.1 % Eos % (Auto) 1.1 % Baso % (Auto) 0.6 % Neut # (Auto) 4.54 (1.40-6.50) K/uL Lymph # (Auto) 2.77 (1.20-3.40) K/uL [place] # (Auto) 0.66 H (0.11-0.59) K/uL Eos # (Auto) 0.09 (0.00-0.50) K/uL Baso # (Auto) 0.05 (0.00-0.20) K/uL Immature Gran # (Auto) 0.03 (0.01-0.20) K/uL PT 11.2 (9.0-12.0) Seconds INR 1.0 (0.9-1.1) APTT 27 (21-31) Seconds PTT Ratio 1.0 Sodium 142 (136-145) mmol/L Potassium 4.1 (3.5-5.1) mmol/L Chloride 105 (98-107) mmol/L Carbon Dioxide 28 (21-32) mmol/L Anion Gap 9 (3-11) BUN 22 (6-23) mg/dl Creatinine 0.61 (0.6-1.2) mg/dl Est Cr Clr Drug Dosing 68.5 ml/min eGFR 89.76 BUN/Creatinine Ratio 36.1 H (10-20) Glucose 132 H (70-99(Fasting)) mg/dl Lactate 1.0 (0.4-2.0) mmol/L Calcium 9.2 (8.6-10.3) mg/dl Magnesium 1.9 (1.7-2.4) mg/dl Total Bilirubin 0.3 (0.2-1.0) mg/dl AST 22 (13-39) U/L ALT 31 (7-52) U/L Alkaline Phosphatase 161 H (34-104) U/L Troponin I High Sens 5.9 (0-14) pg/ml Total Protein 6.9 (6.0-8.3) gm/dl Albumin 3.8 (3.4-5.0) gm/dl Globulin 3.1 (2.5-4.0) gm/dl Albumin/Globulin Ratio 1.2 (0.9-2) Lipase 7 L (11-82) U/L Procalcitonin 0.04 (0-0.5) ng/ml Urine Color Dark Yellow Urine Appearance Turbid A (Clear) Urine pH 6.5 (4.5-7.5) Ur Specific Maurice 1.026 (1.000-1.030) Urine Protein 2+ H (Negative) Urine Glucose (UA) Negative (Negative) Urine Ketones Trace H (Negative) Urine Blood 3+ H (Negative) Urine Nitrite Positive A (Negative) Urine Bilirubin Negative (Negative) Urine Urobilinogen Negative (Negative) Ur Leukocyte Esterase 3+ H (Negative) Urine WBC (Auto) >50 H (0-5) /hpf Urine RBC (Auto) >20 H (0-2) /hpf U Hyaline Cast (Auto) 3-5 H (0-2) /lpf U Epithel Cells (Auto) 6-10 H (0-2) /hpf Urine Bacteria (Auto) 4+ H (None Seen) Calcium Oxalate Crystal Not Reportable Urine Mucus Present A (None Prsent) Urine Yeast Present A (None Prsent) Imaging Data Radiologist's Impression: Chest X-Ray 06/15/24 14:50 Clinical History: Sepsis Technique: A frontal view of the chest was obtained Comparison is made with the prior examination dated 04/24/2024 Findings: There are no confluent pulmonary infiltrates. The heart size is within normal limits. No pleural effusion or pneumothorax is seen. There is no definite pulmonary nodule. No fracture is noted. No foreign body is seen Impression: No active disease Electronically signed by Orville Reyes 06-15-2024 4:[address] 06/15/24 16:25 Clinical History: Confusion Technique: Axial computed tomography images were obtained of the brain without intravenous contrast. Comparison is made to the prior CT dated 04/08/2024 Findings: There is diffuse cerebral atrophy, within expected limits for the patient's age. Areas of decreased attenuation are seen within the periventricular white matter, likely representing chronic small vessel ischemic disease. There is an unchanged old right frontal lobe infarct There is no definite sign of acute infarction. No intracranial hemorrhage is evident. No definite mass lesion is seen on this noncontrast examination. There is no midline shift or other form of herniation. No hydrocephalus is seen. No fracture is identified. The orbits and the visualized paranasal sinuses appear unremarkable. The mastoid air cells appear clear. Impression: 1. Unchanged cerebral atrophy, old right frontal lobe infarct and chronic small vessel ischemic disease 2. Otherwise unremarkable noncontrast CT of the brain Electronically signed by Orville Reyes 06-15-2024 5:14 PM Discharge Plan Visit Data Chief Complaint: Urinary Symptoms ED Provider: Marilee Payan Discharge Problem: AMS (altered mental status), Acute UTI (urinary tract infection) Forms Stand Alone Forms: My [facility] Prescriptions Prescriptions: No Action albuterol sulfate 2.5 mg /3 mL (0.083 %) solution for nebulization 2.5 mg continuous nebulization Q4H PRN (Reason: Shortness Of Breath Or Wheezing) polyethylene glycol 3350 17 gram powder in packet 17 g PO DAILY atorvastatin 10 mg tablet 10 mg PO DAILY amlodipine 5 mg tablet 10 mg PO DAILY citalopram 20 mg tablet 20 mg PO DAILY pantoprazole 40 mg tablet,delayed release (DR/EC) 40 mg PO DAILY docusate sodium 100 mg capsule 100 mg PO BID albuterol sulfate 90 mcg/actuation HFA aerosol inhaler 2 puff INHALATION Q4H PRN (Reason: Shortness Of Breath Or Wheezing) duloxetine 30 mg capsule,delayed release(DR/EC) 30 mg PO DAILY Eliquis 2.5 mg tablet 2.5 mg PO BID Incruse Ellipta 62.5 mcg/actuation blister with device 1 inh INHALATION DAILY fluticasone propion-salmeterol 113-14 mcg/actuation aerosol powdr breath activated 1 inh INHALATION BID ferrous sulfate 324 mg (65 mg iron) tablet,delayed release (DR/EC) 324 mg PO DAILY cyanocobalamin (vitamin B-12) 1,000 mcg Tablet 1,000 mcg PO DAILY melatonin 5 mg Tablet 5 mg PO HS PRN (Reason: Insomnia) diclofenac sodium [Voltaren Arthritis Pain] 1 % Gel 2 g EXT BID Qty: 100 0RF Referrals Referrals: Lolis Tam DO [Primary Care Provider] -
--- NOTE | 2024-06-15 16:01 | Electrocardiogram Report ---
Test Reason : Blood Pressure : */* mmHG Vent. Rate : 91 BPM Atrial Rate : 91 BPM P-R Int : 142 ms QRS Dur : 66 ms QT Int : 358 ms P-R-T Axes : 18 -5 60 degrees QTcB Int : 440 ms Poor data quality, interpretation may be adversely affected Normal sinus rhythm Possible Lateral infarct , age undetermined Inferior infarct (cited on or before 12-Sep-2023) Abnormal ECG When compared with ECG of 06-May-2024 23:19, Non-specific change in ST segment in Lateral leads Nonspecific T wave abnormality, improved in Inferior leads Nonspecific T wave abnormality has replaced inverted T waves in Anterior leads Confirmed by Benton Bella ([id number]) on 06/15/2024 4:01:08 PM Referred By: REFERRED SELF Confirmed By: Benton Bella
[2024-06-15 16:07] LABS: Basophils # (auto) 0.05 K/uL (0.00-0.20); Basophils % (auto) 0.6 %; Eosinophils # (auto) 0.09 K/uL (0.00-0.50); Eosinophils % (auto) 1.1 %; Hematocrit (blood only) 35.4 % (37.0-47.0); Hemoglobin 11.2 g/dl (12.0-16.0); Immature Granulocytes # (auto) 0.03 K/uL (0.01-0.20); Immature Granulocytes % (auto) 0.4 %; Lymphocytes # (auto) 2.77 K/uL (1.20-3.40); Mean Corpuscular Hemoglobin 26.7 pg (25.0-34.0); Mean Corpuscular Hgb Conc 31.6 g/dL (32.0-36.0); Mean Corpuscular Volume 84.3 fL (80.0-100.0); Mean Platelet Volume 9.8 fL (9.4-12.4); Monocytes # (auto) 0.66 K/uL (0.11-0.59); Monocytes % (auto) 8.1 %; Neutrophils # (auto) 4.54 K/uL (1.40-6.50); Neutrophils % (auto) 55.8 %; Platelet Count 236 K/uL (130-400); RDW Coefficient of Variation 16.5 % (11.5-14.5); RDW Standard Deviation 50.4 fL (36.4-46.3); White Blood Count 8.14 K/ul (4.8-10.8)
--- NOTE | 2024-06-15 16:21 | XRay Report ---
Clinical History: Sepsis Technique: A frontal view of the chest was obtained Comparison is made with the prior examination dated 04/24/2024 Findings: There are no confluent pulmonary infiltrates. The heart size is within normal limits. No pleural effusion or pneumothorax is seen. There is no definite pulmonary nodule. No fracture is noted. No foreign body is seen Impression: No active disease Electronically signed by Orville Reyes 06-15-2024 4:20 PM
[2024-06-15 16:23] LABS: Albumin Globulin Ratio 1.2 (0.9-2); Albumin Level 3.8 gm/dl (3.4-5.0); BUN Creatinine Ratio 36.1 (10-20); Bilirubin,Total 0.3 mg/dl (0.2-1.0); Calcium 9.2 mg/dl (8.6-10.3); Creatinine Clr Calc Pharmacy 68.5 ml/min; Globulin 3.1 gm/dl (2.5-4.0); Magnesium 1.9 mg/dl (1.7-2.4); Potassium 4.1 mmol/L (3.5-5.1); Total Protein 6.9 gm/dl (6.0-8.3)
[2024-06-15 16:26] LABS: Partial Thromboplastin Time 27 Seconds (21-31); Prothrombin Time 11.2 Seconds (9.0-12.0)
[2024-06-15 16:29] LABS: Troponin I High Sensitivity 5.9 pg/ml (0-14)
--- NOTE | 2024-06-15 17:14 | CT Scan Report ---
Clinical History: Confusion Technique: Axial computed tomography images were obtained of the brain without intravenous contrast. Comparison is made to the prior CT dated 04/08/2024 Findings: There is diffuse cerebral atrophy, within expected limits for the patient's age. Areas of decreased attenuation are seen within the periventricular white matter, likely representing chronic small vessel ischemic disease. There is an unchanged old right frontal lobe infarct There is no definite sign of acute infarction. No intracranial hemorrhage is evident. No definite mass lesion is seen on this noncontrast examination. There is no midline shift or other form of herniation. No hydrocephalus is seen. No fracture is identified. The orbits and the visualized paranasal sinuses appear unremarkable. The mastoid air cells appear clear. Impression: 1. Unchanged cerebral atrophy, old right frontal lobe infarct and chronic small vessel ischemic disease 2. Otherwise unremarkable noncontrast CT of the brain Electronically signed by Orville Reyes 06-15-2024 5:14 PM
[2024-06-15 17:44] LABS: Appearance Urine Turbid (Clear); Bacteria Urine Automated 4+ (None Seen); Bilirubin Urine Negative (Negative); Blood Urine 3+ (Negative); Color Urine Dark Yellow; Glucose Urine UA Negative (Negative); Ketones Urine Trace (Negative); Leukocyte Esterase Urine 3+ (Negative); Mucus Urine Present (None Prsent); Nitrite Urine Positive (Negative); Protein Urine 2+ (Negative); RBC Urine Automated >20 /hpf (0-2); Specific Gravity Urine 1.026 (1.000-1.030); Urobilinogen Urine Negative (Negative); WBC Urine Automated >50 /hpf (0-5); pH Urine 6.5 (4.5-7.5)
[2024-06-15 18:34] LABS: Adenovirus PCR Not Detected (NotDetected); Bordetella parapertussis PCR Not Detected (NotDetected); Bordetella pertussis PCR Not Detected (NotDetected); Chlamydia pneumoniae PCR Not Detected (NotDetected); Coronavirus 229E PCR Not Detected (NotDetected); Coronavirus CoV-2 (COVID19)PCR Not Detected (NotDetected); Coronavirus HKU1 PCR Not Detected (NotDetected); Coronavirus NL63 PCR Not Detected (NotDetected); Coronavirus OC43PCR Not Detected (NotDetected); Human Metapneumovirus PCR Not Detected (NotDetected); Influenza A PCR Not Detected (NotDetected); Influenza B PCR Not Detected (NotDetected); Mycoplasma pneumoniae PCR Not Detected (NotDetected); Parainfluenza Virus 1 PCR Not Detected (NotDetected); Parainfluenza Virus 2 PCR Not Detected (NotDetected); Parainfluenza Virus 3 PCR Not Detected (NotDetected); Parainfluenza Virus 4 PCR Not Detected (NotDetected); Respiratory Syncytial VirusPCR Not Detected (NotDetected); Rhinovirus/Enterovirus PCR Not Detected (NotDetected)
[2024-06-15] MEDS ORDERED: VANCOMYCIN CONSULT ACTIVE PRN (19:35)
--- NOTE | 2024-06-15 19:40 | History & Physical Report ---
Date of Service June 15, 2024 Assessment & Plan (1) Metabolic encephalopathy: (2) Complicated UTI (urinary tract infection): (3) Chronic indwelling Ng catheter: Plan Ms. Oro is an 83 yo female with a past medical history of Vascular Dementia, CLL, T2DM, HLD, COPD, Hx of CVA with RHP, peripheral polyneuropathy, bedridden, hx of DVT, chronic indwelling ng cath, Chronic R ureteral stent 2/2 hydronephrosis who presents to ED 2/2 confusion. #Metabolic encephalopathy #Complicated UTI #Chronic Indwelling ng admit to medical Pt with hx of recurrent UTI Her ng has not been exchanged in > 30 days, will have nursing exchange ng and obtain new urine specimen Tx with IV ertapenem and vanco given previous cultures She is afebrile and wbc WNL so could be colonization given her chronic ng/stent obtain KUB/Renal US to confirm placement of stent NSS x 24 hrs #T2DM: last a1c 6.7 in April, monitor accuchecks but will not provide sliding scale coverage for now given advanced age #Vascular dementia: pt more confused than baseline per daughter #HTN: chronic, stable - continue amlodipine #Hx of DVT: continue eliquis Hx of CVA with LHP/contractures: bed bound at baseline DVT ppx: Eliquis DNR/DNI PCP: Lolis Huerta Dispo: admit to medical, tx with IV antibiotics and await urine culture, pt is currently under [facility] hospice, daughter reports pt is scheduled for respite stay at [facility] starting Wednesday, Goal would be to discharge to she is able to go there, plan to return to with hospice Pt was seen and examined in collaboration with Dr. Mendez, please see addendum I spent a total of 76 minutes coordinating, documenting and providing care for this patient excluding time spent in the performance of separately billed services or time spent by another provider/QHP. Daughter Anita Morrell, , would like updates provided History of Present Illness Chief Complaint: Confusion Primary Care Provider: Lolis Tam DO Ms. Oro is an 83 yo female with a past medical history of Vascular Dementia, CLL, T2DM, HLD, COPD, Hx of CVA with RHP, peripheral polyneuropathy, bedridden, hx of DVT, chronic indwelling ng cath, Chronic R ureteral stent 2/2 hydronephrosis who presents to ED 2/2 confusion. Hx obtained from outpt chart review, ED provider and speaking with daughter over the phone. Pt lives with her daughter. She is currently involved with [facility]. She has dementia at baseline, but daughter feels mother is becoming more confused. She is currently being treated with IM Meropenem through her hospice agency for the last 5 days. She is unsure where her urine culture was sent to. She has a ng cath in place. She knows its been well over 30 days since last exchange. Daughter states at baseline she is bedridden or confined to a chair. She eats/drinks but has to be assisted with all meals due to choking with meals. In ED pt was hemodynamically stable. UA looked dirty; however was from a ng bag. ROS unobtainable from pt. Allergies Allergy/AdvReac Type Severity Reaction Status Date / Time ibuprofen Allergy Unknown Unknown Unverified 09/04/23 17:30 Iodinated Contrast Media Allergy Unknown Unknown Unverified 09/04/23 17:30 iodine Allergy Unknown Unknown Unverified 09/04/23 17:30 metformin Allergy Unknown Unknown Unverified 09/04/23 17:30 naproxen Allergy Unknown Unknown Unverified 09/04/23 17:30 Penicillins Allergy Unknown Unknown Unverified 04/24/24 15:54 pregabalin Allergy Unknown Unknown Unverified 09/04/23 17:30 Home Medications Medication Instructions Recorded Confirmed Type albuterol sulfate 2.5 mg/3 mL 2.5 mg continuous nebulization Q4H 05/06/24 06/15/24 History (0.083 %) solution for nebulization PRN Shortness Of Breath Or Wheezing albuterol sulfate 90 mcg/actuation 2 puff inhalation Q4H PRN 05/06/24 06/15/24 History aerosol inhaler Shortness Of Breath Or Wheezing amlodipine 5 mg tablet 10 mg PO UD 05/06/24 06/15/24 History apixaban 2.5 mg tablet (Eliquis) 2.5 mg PO BID 05/06/24 06/15/24 History atorvastatin 10 mg tablet 10 mg PO UD 05/06/24 06/15/24 History citalopram 20 mg tablet 20 mg PO DAILY 05/06/24 06/15/24 History cyanocobalamin (vitamin B-12) 1,000 mcg PO DAILY 05/06/24 06/15/24 History 1,000 mcg tablet docusate sodium 100 mg capsule 100 mg PO BID 05/06/24 06/15/24 History duloxetine 30 mg capsule,delayed 60 mg PO DAILY 05/06/24 06/15/24 History release ferrous sulfate 324 mg (65 mg 324 mg PO UD 05/06/24 06/15/24 History iron) tablet,delayed release fluticasone 113 mcg-salmeterol 14 1 inh inhalation BID 05/06/24 06/15/24 History mcg/actuation breath activated powdr (AirDuo RespiClick) melatonin 5 mg tablet 5 mg PO HS PRN Insomnia 05/06/24 06/15/24 History pantoprazole 40 mg tablet,delayed 40 mg PO DAILY 05/06/24 06/15/24 History release polyethylene glycol 3350 17 gram 17 g PO UD 05/06/24 06/15/24 History oral powder packet umeclidinium 62.5 mcg/actuation 1 inh inhalation DAILY 05/06/24 06/15/24 History blister powder for inhalation (Incruse Ellipta) diclofenac sodium 1 % topical gel 2 g EXT BID #100 grams 05/11/24 06/15/24 Rx (Voltaren Arthritis Pain) baclofen 10 mg tablet 10 mg PO TID 06/15/24 06/15/24 History Past Med/Surg History Problem List (Updated 06/15/24 @ 19:46 by Kim Richey PA-C) Complicated UTI (urinary tract infection) Metabolic encephalopathy Acute UTI (urinary tract infection) (Acute) AMS (altered mental status) (Acute) Chronic indwelling Ng catheter Acute pyelonephritis Abnormal finding on imaging of liver Recurrent UTI Advanced care planning/counseling discussion Palliative care by specialist Weakness generalized Hx MRSA infection (Acute) Leukocytosis (Acute) Failure of outpatient treatment (Acute) Acute confusion (Acute) Ureteral stent present Delirium Hydronephrosis (Acute) Choledocholithiasis Urinary tract obstruction by kidney stone Nephrolithiasis Abnormal CBC UTI (urinary tract infection) (Acute) Chronic pain No pertinent past surgical history COVID-19 (Acute) weaned off oxygen GERD (gastroesophageal reflux disease) Hyperlipidemia Insomnia Rheumatoid arthritis Type 2 diabetes mellitus with diabetic polyneuropathy Major depressive disorder Vascular dementia Constipation Acute osteomyelitis of toe (Acute) Medical History Hydroureteronephrosis History of deep venous thrombosis (DVT) of distal vein of right lower extremity Anticoagulated History of CVA (cerebrovascular accident) Hypertension Diabetes Social History Smoking Status: Current every day smoker Tobacco Type: Cigarettes Second Hand Exposure: No; Do You Dip or Chew Tobacco: No; Hx Alcohol Use: No Hx Substance Use: No Preferred Language: Mongolian Communication Ability: Impaired Communication Ability Comment: disoriented, difficulty holding items Control Clerk Food And Beverage Required: No Beliefs That Will Affect Care: None Current Living Situation: Family Current Living Situation Comment: lives with daughter Feels Safe at Home: Yes Assistive Devices: Hospital Bed, Mechanical Lift, Oxygen - at Night and Wheelchair Review of Systems Review of Systems: All systems reviewed & are unremarkable except as noted in HPI & below Physical Exam Physical Exam: Constitutional: Elderly, chronically ill appearing, alert and oriented x 1 only Head: Normocephalic, Atraumatic Eyes: PERRL, conjunctivae normal, anicteric sclerae ENMT: external ear and nose normal, oropharynx normal dry membranes Neck: trachea midline, no thyromegaly normal visual inspection Respiratory: normal respiratory effort, lungs clear to auscultation, no wheeze, rales, rhonchi. Normal insp/exp effort, no accessory muscle use Cardiovascular: RRR, no murmur, no edema Vessels: no JVD or carotid bruit Chest: normal inspection of chest Abdomen: normal bowel sounds, soft, nontender, no hepatosplenomegaly Musculoskeletal: no cyanosis or clubbing, LHP, RUE contracture Skin: no rashes, warm and dry normal turgor Neurologic:no face palsy, no dysarthria CN's II-XI intact bilaterally and moves all extremities Psychiatric: A+Ox1, euthymic affect Lymphatic: no cervical or axillary lymphadenopathy : +ng Results & Data Results & Data Vital Signs (Past 12 Hours) Vital Signs Temp Pulse Pulse Resp BP BP Pulse Ox 06/15/24 18:47 78 16 141/61 H 93 06/15/24 18:33 77 06/15/24 17:33 92 H 20 166/89 H 94 06/15/24 17:18 92 H 06/15/24 16:04 92 H 18 144/94 H 93 06/15/24 15:01 95 H 22 92 06/15/24 14:50 96 06/15/24 14:48 37.1 C 91 H 18 124/98 85 L O2 Del Method O2 Flow Rate 06/15/24 18:47 Room Air 06/15/24 18:33 06/15/24 17:33 Room Air 06/15/24 17:18 06/15/24 16:04 Room Air 06/15/24 15:01 Room Air 06/15/24 14:50 Nasal Cannula 2 06/15/24 14:48 Room Air Laboratory Results I have independently reviewed and interpreted patient's admitting labs including CBC, CMP, PTT, PT/INR, mag, UA, resp biofire and troponin. Diagnostic Findings Chest X-Ray 06/15/24 14:50 Clinical History: Sepsis Technique: A frontal view of the chest was obtained Comparison is made with the prior examination dated 04/24/2024 Findings: There are no confluent pulmonary infiltrates. The heart size is within normal limits. No pleural effusion or pneumothorax is seen. There is no definite pulmonary nodule. No fracture is noted. No foreign body is seen Impression: No active disease Electronically signed by Orville Reyes 06-15-2024 4:[address] 06/15/24 16:25 Clinical History: Confusion Technique: Axial computed tomography images were obtained of the brain without intravenous contrast. Comparison is made to the prior CT dated 04/08/2024 Findings: There is diffuse cerebral atrophy, within expected limits for the patient's age. Areas of decreased attenuation are seen within the periventricular white matter, likely representing chronic small vessel ischemic disease. There is an unchanged old right frontal lobe infarct There is no definite sign of acute infarction. No intracranial hemorrhage is evident. No definite mass lesion is seen on this noncontrast examination. There is no midline shift or other form of herniation. No hydrocephalus is seen. No fracture is identified. The orbits and the visualized paranasal sinuses appear unremarkable. The mastoid air cells appear clear. Impression: 1. Unchanged cerebral atrophy, old right frontal lobe infarct and chronic small vessel ischemic disease 2. Otherwise unremarkable noncontrast CT of the brain Electronically signed by Orville Reyes 06-15-2024 5:14 PM KUB X-Ray 06/15/24 18:38 Exam(s): XR KUB EXAM: XR Abdomen, 1 View CLINICAL HISTORY: Reason for exam: check stent. TECHNIQUE: Frontal supine view of the abdomen/pelvis. COMPARISON: 04/24/2024 FINDINGS: Gastrointestinal tract: Moderate colorectal stool burden. Nonobstructive bowel gas pattern. Tubes, lines and devices: Double-J nephroureteral stent in place on the right. IMPRESSION: Double-J nephroureteral stent in place on the right. Electronically signed by: Gerhard Hu MD 06/15/24 19:41 PM Code Status & VTE Plan Code Status DNR/DNI VTE Prophylaxis Plan VTE Prophylaxis will be ordered: No Supervising Physician Co-Signing Physician Notes Patient seen and examined independently. Discussed with above provider. Patient has longstanding history of right-sided hydronephrosis with stent p lacement along with chronic indwelling Ng which has not been changed for several weeks. She presents to the hospital for concern of altered mental status. Patient has been on hospice care at home. She has been receiving baclofen recently as well. Urinalysis is suggestive of infection. Given past urine culture results; patient started on ertapenem and vancomycin. Follow-up on final urine culture. Ng to be replaced. Obtain renal ultrasound; possible urology evaluation depending on results. I have reviewed the advanced practitioner's documentation, and I agree with, and take responsibility for the plan of care I spent a total of 20 minutes coordinating, documenting, and providing care for this patient excluding time spent in the performance of separately billed services. All of the aforementioned completed while collaborating with the assigned advanced practitioner for a full treatment plan
[2024-06-15] MEDS: ERTAPENEM 1000MG 1,000 MG/10 ML SYR IV SCH (21:21)
[2024-06-15] MEDS: VANCOMYCIN HCL 1,500 MG in SODIUM CHLORIDE 0.9% 500 ML IV SCH (21:21)
[2024-06-15 21:38] LABS: Appearance Urine Turbid (Clear); Bacteria Urine Automated 4+ (None Seen); Bilirubin Urine Negative (Negative); Blood Urine 3+ (Negative); Calcium Oxalate Crystals Urine Present (None Prsent); Cast Urine Automated >20 /lpf (0-2); Color Urine Yellow; Glucose Urine UA Negative (Negative); Hyaline Casts Urine Present /lpf (None Presnt); Ketones Urine Trace (Negative); Leukocyte Esterase Urine 3+ (Negative); Nitrite Urine Negative (Negative); Protein Urine 3+ (Negative); RBC Urine Automated >20 /hpf (0-2); Specific Gravity Urine 1.023 (1.000-1.030); Urobilinogen Urine Negative (Negative); WBC Urine Automated >50 /hpf (0-5); pH Urine 6.5 (4.5-7.5)
--- NOTE | 2024-06-15 21:42 | Ultrasound Report ---
Exam(s): US RENAL EXAM: US Retroperitoneal Limited, Renal CLINICAL HISTORY: Reason for exam: hx of R renal stone. TECHNIQUE: Real-time limited ultrasound of the retroperitoneum with image documentation. COMPARISON: CT 05/07/2024 IMPRESSION: Study is severely limited. Only 7 images obtained. Moderate hydronephrosis in the right kidney. No grossly evident hydronephrosis in the left kidney. Bladder is decompressed. Electronically signed by: Gerhard Hu MD 06/15/24 21:40 PM
[2024-06-15] MEDS ORDERED: GLUCOSE 10 TAB/TUBE PO PRN (21:46)
[2024-06-15] MEDS ORDERED: DEXTROSE 50% 50 ML SYRINGE IV PRN (21:46)
[2024-06-15] MEDS ORDERED: CARBOHYDRATES FOR HYPOGLYCEMIA PO PRN (21:46)
[2024-06-15] MEDS ORDERED: GLUCAGON FOR INJ 1 MG VIAL SQ PRN (21:46)
[2024-06-15] MEDS ORDERED: GLUCOSE 40% GEL 15 GM TUBE PO PRN (21:46)
[2024-06-15] MEDS: APIXABAN 2.5 MG TAB PO SCH (22:39)
[2024-06-15] MEDS: DOCUSATE SODIUM 100 MG CAP PO SCH (22:39)
[2024-06-15] MEDS: SODIUM CHLORIDE 0.9% 1,000 ML IV SCH (22:39)
--- OUTSIDE RECORDS SUMMARY | 2024-06-15 23:36 | External Medical Summary | Summary of Care ---
Author Name Unknown Organization [facility] Address [address] [address] Phone [phone] Care Team Providers Care Senior Laboratory Technician Name Role Phone Lolis Tam DO Primary Care Provider [phone] Reason for Visit * Reason Onset Date Comments Medication Pre-auth 05/29/2024 Encounter Details Date Type Department Care Team (Late st Contact Info) Description 05/29/2024 Telephone Family Practice [place] [address] [facility] [place] [address] Lolis Tam DO [address] [facility] [place] [address] Medication Pre-auth Allergies Active Allergy Reactions Criticality Noted Date Comments Naproxen Sodium 11/03/2017 Ibuprofen 11/03/2017 Ibuprofen Unknown 02/23/2017 Other reaction(s): Other See Comments shakiness Iodine Unknown 09/09/2022 Iodides 07/15/2006 Ivp Dye 07/15/2006 Menthol Low 12/02/2020 Metformin 06/18/2021 Other reaction(s): Other (see comments) "Feels like I'm going to " Naproxen 02/23/2017 Other reaction(s): Other See Comments shakiness Penicillins Rash Low 07/15/2006 hives Other reaction(s): Chills Penicillins 11/03/2017 Pregabalin 06/18/2021 Other reaction(s): Confusion documented as of this encounter (statuses as of 05/30/2024) Medications acetaminophen (TYLENOL) 325 MG Tablet Take 1 Tablet by mouth every 6 hours as needed. Active bisacodyl (DULCOLAX) 10 MG suppository Administer 1 Suppository into the rectum every 3 days. Active Vitamin B-12 100 MCG Oral Tablet (vitamin B-12) Take 1 Tablet by mouth in the morning. Active amLODIPine Besylate 5 MG Oral Tablet [...] the morning. 30 Tablet 4 Active Umeclidinium [place] 62.5 MCG/ACT Inhalation Aerosol Powder Breath Activated (INCRUSE ellipta) Inhale 1 Puff by mouth in the morning. 30 Each 4 Active documented as of this encounter (statuses as of 05/30/2024) Active Problems Problem Noted Date Diagnosed Date CLL (chronic lymphocytic leukemia) 05/05/2024 Hemiplegia, post-stroke 05/05/2024 Type 2 diabetes mellitus wit h hemoglobin A1c goal of less than 7.0% 05/05/2024 Mild vascular dementia witho ut behavioral disturbance, psychotic disturbance, mood disturbance, or anxiety 05/05/2024 Acute cystitis without hematuria 02/16/2022 Other [...] as of this encounter (statuses as of 05/30/2024) Resolved Problems Problem Noted Date Diagnosed Date Resolved Date COVID-19 02/04/2022 05/05/2024 Chest pain 01/08/2022 05/05/2024 Lower leg DVT (deep venous t hromboembolism), acute, left 06/18/2021 05/05/2024 documented as of this encounter (statuses as of 05/30/2024) Social History Tobacco Use Types Packs/Day Years Used Date Smoking Tobacco: Former Cigarettes 0.5 20 Smokeless Tobacco: Never Comments:2013 quit Alcohol Use Standard Drinks/Week Comments No 0 (1 standard drink = 0.6 oz pur e alcohol) Hunger Vital Sign Answer Date Recorded Within the past 12 months, y ou worried that your food would run out before you got the money to buy more. Never true 05/05/20 24 Within the past 12 months, t he food you bought just didn't last and you didn't have money to get more. Never true 05/05/2024 Childcare Answer Date Recorded Do you feel overwhelmed with taking care of a child, family member or friend? No 05/05/2024 Does your family need help f inding childcare? (Household - for ages 0-17 years) Not on file 05/05/2024 Clothing Answer Date Recorded Have you been unable to get clothing when it was really needed? No 05/05/2024 Is your family able to get c lothes or diapers when needed? (Household - for ages 0-17 years) Not on file 05/05/2024 Personal Safety Answer Date Recorded Do you feel unsafe or have concerns for your saf ety? No 05/05/2024 Do you have concerns for you r family's safety? (Household - for ages 0-17 years) Not on file 05/05/2024 Utilities Answer Date Recorded Do you have trouble paying y our heating, water, or electric bill? No 05/05/2024 Is your family able to pay t he heat, water, or electric bill? (Household - for ages 0-17 years) Not on file 05/05/2024 Does your family have access to good internet? (Household - for ages 0-17 years) Not on file 05/05/2024 Employment Status Answer Date Recorded Are you unemployed or without regular income? No 05/05/2024 Does the household have a re lar source of income? (Household - for ages 0-17 years) Not on file 05/05/2024 Social Connections Answer Date Recorded How often do you feel lonely or isolated from th ose around you? Never 05/05/2024 Financial Resource Strain Answer Date R ecorded Do you have any trouble payi ng for your medications, or do you think you might in the future? No 05/05/2024 Does your family have troubl e paying for medicine? (Household - for ages 0-17 years) Not on file 05/05/2024 Transportation Needs Answer Date Record ed Do you have trouble getting a ride to medical visits or work? (Adult - for ages 18 years and over) Not on file 05/05/2024 Does your family have a hard time getting a ride to doctors visits? (Household - for ages 0-17 years) Not on file 05/05/2024 Has lack of transportation k ept you from medical appointments, meetings, work, or from getting things needed for daily living? Check all that apply. No 05/05/2024 Do you (or your family) have trouble finding or paying for a ride (transportation)? (Household - for ages 0-17 years) Not on file 05/05/2024 Housing Stability Answer Date Recorded Do you currently live in a s helter or have no steady place to sleep at night? No 05/05/2024 Do you think you are at risk of becoming homeless? (Adult - for ages 18 years and over) Not on file 05/05/2024 Does your family worry about paying for your home or becoming homeless? (Household - for ages 0-17 years) Not on file 1 07/06/2023 Are you homeless or worried that you might be in the future? No 05/05/2024 Are you (or your family) arron eless or worried that you might be in the future? (Household - for ages 0-17 years) Not on file Food Insecurity Answer Date Recorded Do you need food for this week? No 05/05/2024 Are you able to get enough f ood for your family? (Household - for ages 0-17 years) Not on file 05/05/2024 Does your family need food t his week? (Household - for ages 0-17 years) Not on file 05/05/2024 Do you always have enough fo od for your family? (Household - for ages 0-17 years) Not on file 05/05/2024 Comments No Sex and Gender Information Value [...] Encounter - Alma Rosa Jay OSA - 05/30/2024 6:49 AM EST Faxed last OV * Telephone Encounter - Tanja Tsai LPN - 05/29/2024 2:08 PM EST Please assist with faxing notes * Telephone Encounter - Gino Benson OSA - 05/29/2024 12:29 PM EST Rec'd call from [facility] Stated they are submitting request to have fax sent for rx. Was orginally sent to Di 05/19/2024 SCOTT Hilton is listed per Pharmacy as ordering provider. [place] dept. chart notes were to be faxed, not rec'd to their office. Mounjaro 2.5 mg injection. -- Yobani CHAVEZ Mallori [place]. documented in this encounter Plan of Treatment Upcoming Encounters Date Type Department Care Team (Late st Contact Info) Description 09/11/2024 1:00 PM EDT Office Visit [facility] [address], [place] [address] [place] [address] Lolis Tam DO [address] [place] [address] Scheduled Procedures Name Priority Associated Diagnoses Date/Ti [...] 2024 05/12/2023, 02/19/2023, 02/21/2021, Additional history exists O2 ASSESSMENT COMPLETED IN PAST YEAR FOR COPD 05/05/2025 05/05/2024 GFR 05/22/2025 05/22/2024, 04/2 01/2024, 02/22/2022, Additional history exists Pneumococcal Vaccine: 50+ Years Completed 05/12/2023, 09/30/2022, 11/01/2020, Additional history [...] Advance Directives occurred with: Patient Care Teams Senior Laboratory Technician Relationship Specialty Start Date End Date Lolis Tam DO [address] [facility] [place] [id number] PCP - General Family Medicine 08/13/21 documented as of this encounter
--- OUTSIDE RECORDS SUMMARY | 2024-06-15 23:36 | External Medical Summary | Summary of Care ---
Author Name Unknown Organization [facility] Address [address] [facility] [place] [address] Phone [phone] Care Team Providers Care Broker Name Role Phone Lolis Tam DO Primary Care Provider +1- [phone] Reason for Visit * Reason Onset Date Comments Home Health 05/29/2024 LVM Encounter Details Date Type Department Care Team (Late st Contact Info) Description 05/29/2024 Telephone Family Practice [place] [address] [place] [address] Lolis Tam DO [address] [facility] [address] [facility] (LVM) Allergies Active Allergy Reactions Criticality Noted Date [...] as of this encounter (statuses as of 05/29/2024) Medications acetaminophen (TYLENOL) 325 MG Tablet Take [...] 2 Tablets by mouth in the morning. Active Acetaminophen 325 MG Oral Tablet (Tylenol)Indicati ons:Moderate pain Take 3 Tablets by mouth every 6 hours as needed for Pain, Mild or Pain, Moderate. 30 Tablet 2 Active Albuterol Sulfate (2.5 MG/3ML) 0.083% Inhalation Nebulization Solution (Proventil)Indica tions:Wheezing Inhale 1 Vial via nebulizer every 4 hours as needed for Wheezing or Shortness of Breath. 360 mL 11 Active Docusate Sodium 100 MG Oral Capsule (Colace)Indicatio ns:Constipation Take 1 Capsule by mouth in the morning and 1 Capsule before bedtime. 10 Capsule 2 Active Polyethylene Glycol 3350 17 GM Oral Packet (Miralax)Indicati ons:Constipation Take 1 Packet by mouth in the morning and 1 Packet before bedtime. 14 Each 2 Active Albuterol Sulfate HFA 108 (90 Base) MCG/ACT Inhalation Aerosol Solution Inhale 2 Puffs by mouth every 6 hours as needed for Dyspnea. 18 g Active Apixaban 2.5 MG Oral Tablet (Eliquis) Take 1 Tablet by mouth in the morning and 1 Tablet before bedtime. 60 Tablet Active Atorvastatin Calcium 10 MG Oral Tablet (Lipitor) Take 1 Tablet by mouth in the morning. 30 Tablet Active Citalopram Hydrobromide 20 MG Oral Tablet (CeleXA) Take 1 Tablet by mouth in the morning. 30 Tablet Active Ferrous Sulfate 324 (65 Fe) MG Oral Tablet Delayed Release Take 1 Tablet by mouth daily with breakfast. 30 Tablet Active Fluticasone-Salme terol 113-14 MCG/ACT Aerosol Powder Breath Activated Inhale 1 Inhalation by mouth in the morning and 1 Inhalation in the evening. 1 Each Active Melatonin 5 MG Oral Tablet Take 1 Tablet by mouth at bedtime. 30 Tablet Active Pantoprazole Sodium 40 MG Oral Tablet Delayed Release (Protonix) Take 1 Tablet by mouth in the morning. 30 Tablet Active Umeclidinium [place] 62.5 MCG/ACT Inhalation Aerosol Powder Breath Activated (INCRUSE ellipta) Inhale 1 Puff by mouth in the morning. 30 Each Active DULoxetine HCl 60 MG Oral Capsule Delayed Release Particles (Cymbalta)Indicat ions:Peripheral polyneuropathy Take 1 Capsule by mouth in the morning. Do not cut, crush or chew. 30 Capsule 5 Active Baclofen 10 MG Oral Tablet (Lioresal)Indicat ions:Peripheral polyneuropathy Take 1 Tablet by mouth in the morning and 1 Tablet at noon and 1 Tablet before bedtime. 90 Tablet 1 Active DULoxetine HCl 30 MG Oral Capsule Delayed Release Particles (Cymbalta)Indicat ions:Peripheral polyneuropathy Take 1 Capsule by mouth in the morning. Do not cut, crush or chew. 30 Capsule 2 2024 Discontinued levoFLOXacin 750 MG Oral Tablet (Levaquin) Take 1 Tablet by mouth in the morning. 2024 Discontinued Sulfamethoxazole- Trimethoprim 800-160 MG Oral Tablet (Bactrim DS) Take 1 Tablet by mouth in the morning and 1 Tablet before bedtime. Do all this for 7 days. Until gone. 14 Tablet 2024 Discontinued Cephalexin 500 MG Oral Capsule Take 1 Capsule by mouth in the morning and 1 Capsule before bedtime. X 7 days Ordered from [facility] on 05/22. 2024 Discontinued documented as of this encounter (statuses as of 05/29/2024) Active Problems Problem Noted Date Diagnosed Date [...] as of this encounter (statuses as of 05/29/2024) Resolved Problems Problem Noted Date Diagnosed Date Resolved Date COVID-19 02/04/2022 05/05/2024 Chest pain 01/08/2022 05/05/2024 Lower leg DVT (deep venous t hromboembolism), acute, left 06/18/2021 05/05/2024 documented as of this encounter (statuses as of 05/29/2024) Social History Tobacco Use Types Packs/Day Years [...] No 05/05/2024 Does the household have a [facility] income? (Household - for ages [...] Encounter - Tanja Tsai LPN - 05/29/2024 5:37 PM EST Pt daughter updated, verified pt was taking 30 mg and verbalized understanding on increase and new med sent. * Addendum Note - Lolis Tam DO - 05/29/2024 3:23 PM ESTAddended by: LOLIS TAM on: 05/29/2024 03:23 PM Modules accepted: Orders * Telephone Encounter - Lolis Tam DO - 05/29/2024 3:20 PM EST Please let nurse know that this is her baseline This is how she was 2 years ago, I believe it is related to her massive stroke I will increase the Cymbalta, to 60 mg daily Please make sure they verify with daughter that she is actually getting this medication We can try a muscle relaxer as well * Telephone Encounter - Fawn Aldana LPN - 05/29/2024 2:59 PM EST Sierra calling from [facility]. Given message. Asking if something can be adjusted or added? From the waist down she is as stiff as board. Don't know if it could be mental or neuropathy pain. Could the cymbalta be increased? Maybe a muscle relaxer? Fentanyl patch? Any suggestions from the doctor? Working on respite to give the daughter a break. Nobody has called them back as of yet. * Telephone Encounter - Lisa Brown LPN - 05/29/2024 2:05 PM EST Left voicemail for Sierra to return call to nurse triage. * Telephone Encounter - Lolis Tam DO - 05/29/2024 1:18 PM EST Cymbalta was started and sent to pharmacy on 05/05/24 according to my office note * Telephone Encounter - yLnette Reyes LPN - 05/29/2024 12:17 PM EST HH Concerns Sierra , Calling from: [facility] Report/Concerns of: See Below Symptoms: See Below Narrative: Sierra calling from [facility], she was in to see patient on Wednesday and wanted to discuss a few things with PCP office, she is going out later today for a follow up with patient. Patient is contracted from the waist down, cannot spread her to legs to clean private area, they have to kind of squeeze her leg to perform hygiene care. She also has foot drop and diagnosed with neuropathy. Daughter is reluctant to give her mom morphine as she doesn't want her zonked out. Patient is anxious- she doesn't let you reposition her or do much, she is constantly screaming for her daughter, Sierra said as soon as she figured out her name she was screaming her name. Daughter did give her some ativan - slept for about 4 hours, immediately wakes up and starts screaming. Daughter is mentally and physically wore out. They discussed trying to get respite care. Sierra asking if Cymbalta would be an option for her. Daughter mentioned that when patient was in a senior care previously, they put patches on her feetfor pain which seemed to help. Sierra encouraged daughter to use the morphine and ativan. Please advise, pharmacy selected. Call back [facility] with any advice or orders at [phone] Please fax new orders to * Telephone Encounter - Gino Benson OSA - 05/29/2024 12:15 PM EST Reason for patient's call: [facility] Home care facility Caller was transferred to Lynette at the nurse line. Pt was admitted last week to their service admitted w/ CVA they stated she has some meds. She feelspain and mental issues from neuropathy. documented in this encounter Plan of Treatment Upcoming Encounters Date Type Department Care Team (Late st Contact Info) Description 09/11/2024 1:00 PM EDT Office Visit [facility] Tima Gallegos [address] [place] [id number] Lolis Tam DO [address] [place] [address] Scheduled Procedures Name Priority Associated Diagnoses Date/Ti [...] as of this encounter Visit Diagnoses Diagnosis Peripheral polyneuropathy- Primary Unspecified hereditary and idiopathic peripheral neuropathy documented in this encounter Advance Directives * Full Code (Latest Code Status on File) Date Activated Date Inactivated Comments 01/08/2022 6:10 PM 02/24/2022 6:34 PM This order reflects the patients wishes and were consensually agreed upon. Question Answer Comments Discussion of Advance Directives occurred with: Patient Care Teams Broker Relationship Specialty Start Date End Date Lolis Tam DO [address] [facility] [place] [address] PCP - General Family Medicine 08/13/21 documented as of this encounter
--- OUTSIDE RECORDS SUMMARY | 2024-06-15 23:37 | External Medical Summary | Summary of Care ---
Author Name Unknown Organization [facility] Address [address] [facility] [place] [address] Phone [phone] Care Team Providers Care Sewing Techniques Demonstrator Name Role Phone Lolis Tam DO Primary Care Provider +1- [phone] Reason for Visit * Reason Onset Date Comments Advice 05/22/2024 Hospice Encounter Details Date Type Department Care Team (Late st Contact Info) Description 05/22/2024 Telephone Family Practice [place] Gallegos [address] [place] [address] Lolis Tam DO [address] [facility] [place] [address] Advice (Hospice) Allergies Active Allergy Reactions Criticality Noted Date [...] as of this encounter (statuses as of 05/24/2024) Medications acetaminophen (TYLENOL) 325 MG Tablet Take [...] Each 2 05/02/20 24 Active Albuterol Sulfate HFA 108 (90 Base) MCG/ACT Inhalation Aerosol Solution Inhale 2 Puffs by mouth every 6 hours as needed for Dyspnea. 18 g 05/02/20 24 Active Apixaban 2.5 MG Oral Tablet (Eliquis) [...] the morning. 30 Tablet 05/02/20 24 Active Ferrous Sulfate 324 (65 Fe) MG Oral Tablet Delayed Release Take 1 Tablet by mouth daily with breakfast. 30 Tablet 05/02/20 24 Active Fluticasone-Salmet [place] 113-14 MCG/ACT Aerosol Powder Breath Activated Inhale 1 Inhalation by mouth in the morning and 1 Inhalation in the evening. 1 Each 05/02/20 24 Active Melatonin 5 MG Oral Tablet Take 1 Tablet by mouth at bedtime. 30 Tablet 05/02/20 24 Active Pantoprazole Sodium 40 MG Oral Tablet Delayed Release (Protonix) Take 1 Tablet by mouth in the morning. 30 Tablet 05/02/20 24 Active Umeclidinium [place] 62.5 MCG/ACT Inhalation Aerosol Powder Breath Activated (INCRUSE ellipta) Inhale 1 Puff by mouth in the morning. 30 Each 05/02/20 24 Active DULoxetine HCl 30 MG Oral Capsule Delayed Release Particles (Cymbalta)Indicati ons:Peripheral polyneuropathy Take 1 Capsule by mouth in the morning. Do not cut, crush or chew. 30 Capsule 2 05/05/20 24 Active Sulfamethoxazole-T rimethoprim 800-160 MG Oral Tablet (Bactrim DS) Take 1 Tablet by mouth in the morning and 1 Tablet before bedtime. Do all this for 7 days. Until gone. 14 Tablet 05/20/19 25 025 Active Cephalexin 500 MG Oral Capsule Take 1 Capsule by mouth in the morning and 1 Capsule before bedtime. X 7 days Ordered from [facility] ER on 05/22. Active documented as of this encounter (statuses as of 05/24/2024) Active Problems Problem Noted Date Diagnosed Date [...] as of this encounter (statuses as of 05/24/2024) Resolved Problems Problem Noted Date Diagnosed Date Resolved Date COVID-19 02/04/2022 05/05/2024 Chest pain 01/08/2022 05/05/2024 Lower leg DVT (deep venous t hromboembolism), acute, left 06/18/2021 05/05/2024 documented as of this encounter (statuses as of 05/24/2024) Social History Tobacco Use Types Packs/Day Years [...] money to buy more. Never true 05/05/20 Within the past 12 months, t he [...] 05/05/2024 Does the household have a re gular source of income? (Household - for ages [...] Telephone Encounter - Tanja Tsai LPN - 05/24/2024 1:59 PM EST Attempted to contact pt daughter, mailbox full, unable to leave message Had spoke with home nursing who saw pt at house today in separate encounter, please verify appt with daughter to ensure they are aware to keep appt * Telephone Encounter - Lolis Tam DO - 05/24/2024 1:30 PM EST Please verify if patient is admitted to the hospital or is at home Okay for hospice to start as soon as possible Patient should not cancel appointment on May 25 if she is at home Also if pt is on hospice she does not need a palliative referral * Telephone Encounter - Kayla Echevarria OSA - 05/24/2024 11:28 AM EST Anita is calling back to let you know that the name of the hospice is [facility] hospice care in [place]. They can start tomorrow. Wondering if Dr Tam wants to discharge her and cancel the appt tomorrow or if she would want her to start after she sees Dr Tam tomorrow. Please call Anita back asapat [phone]. Thank you * Telephone Encounter - Martha Pollack LPN - 05/23/2024 9:36 AM EST Daughter asking if Palliative care referral was faxed at this time. Advised was not faxed at this time and patient is getting Nursing form [facility], but Anita (Daughter) does not want [facility] family Hospice back into the home to take care of her mother. Anita is going to reach out to some hospice places to see if they take insurance and can grain picker care for her or she will just talk to PCP at [facility] on 05/25 of other Hospice care locations. FYI * Telephone Encounter - Laurel Zavala OSA - 05/22/2024 1:39 PM EST Daughter Anita just called to let you know that when home health was in today, they felt she needed to go back to hospital but with the weather, was taken to [facility]. Daughter is unsure if they are admitting her or will be discharging, but talking of possibly going on Hospice. Instructed daughter to cancel appt if she is in hospital or gets admitted to Hospice. * Telephone Encounter - Tanja Tsai LPN - 05/22/2024 9:33 AM EST Spoke with pt daughter, pt taking abx as prescribed, daughter will be reaching out to urology regarding catheter change and for further recommendation and possibly take her to ER depending on what they recommend. Discussed referrals, has not set up with hospice that was placed on 05/05. Does not want [facility] that they had previously. Please assist with setting up with alternate companies. FYI * Telephone Encounter - Kimi Mata OSA - 05/22/2024 7:19 AM EST Anita Daughter of Ruthann Oro called, Hospital discharge appt for 05-22-24 was cancelled/ rescheduled for 05-25-24 Bladder and kidney / not better / urine is orange- brown Needs more services from home health care/ needs catheter changed/ bathed/ was to be having therapy documented in this encounter Plan of Treatment Upcoming Encounters Date Type Department Care Team (Late st Contact Info) Description 05/25/2024 1:40 PM EST Office Visit [facility] [address] [place] [address] Lolis Tam DO [address] [place] [address] 09/11/2024 1:00 PM EDT Office Visit [facility] [address] [place] [address] Lolis Tam, DO [address] [place] [address] Scheduled Procedures Name Priority Associated Diagnoses Date/Ti [...] Advance Directives occurred with: Patient Care Teams Sewing Techniques Demonstrator Relationship Specialty Start Date End Date Lolis Tam DO [address] [facility] [place] [address] PCP - General Family Medicine 08/13/21 documented as of this encounter
--- OUTSIDE RECORDS SUMMARY | 2024-06-15 23:37 | External Medical Summary | Summary of Care ---
Author Name Unknown Organization [facility] Address [address] [facility] [place] [address] Phone [phone] Care Team Providers Care Health And Safety Trainer Name Role Phone Lolis Tam DO Primary Care Provider +1- [phone] Reason for Visit * Reason Onset Date Comments Advice 05/22/2024 Hospice Encounter Details Date Type Department Care Team (Late st Contact Info) Description 05/22/2024 Telephone Family Practice [place] Tima Gallegos [address] [place] [address] Lolis Tam DO [address] [facility] [place] [address] Advice (Hospice) Allergies Active [...] as of this encounter (statuses as of 05/25/2024) Medications acetaminophen (TYLENOL) 325 MG Tablet Take [...] morning. 30 Tablet 05/02/20 24 Active Umeclidinium [place] 62.5 MCG/ACT Inhalation Aerosol Powder Breath Activated [...] before bedtime. X 7 days Ordered from [facility] ER on 05/22. Active documented as of this encounter (statuses as of 05/25/2024) Active Problems Problem Noted Date Diagnosed Date [...] as of this encounter (statuses as of 05/25/2024) Resolved Problems Problem Noted Date Diagnosed Date Resolved Date COVID-19 02/04/2022 05/05/2024 Chest pain 01/08/2022 05/05/2024 Lower leg DVT (deep venous t hromboembolism), acute, left 06/18/2021 05/05/2024 documented as of this encounter (statuses as of 05/25/2024) Social History Tobacco Use Types Packs/Day Years [...] Encounter - Alma Rosa Jay OSA - 05/25/2024 11:02 AM EST Spoke to Anita to confirm appt. She sts Hospice is starting today and pt is not able to come in for an appt. * Telephone Encounter - Rhiannon Acosta OSA - 05/24/2024 2:07 PM EST Tried to call daughterAnita. Mailbox is full and unable to leave message. * Telephone Encounter - Tanja Tsai LPN [...] that the name of the hospice is [facility] hospice care in [place]. They can start tomorrow. Wondering if Dr Tam wants to discharge her and cancel the appt tomorrow or if she would want her to start after she sees Dr Tam tomorrow. Please call Anita back asakst [phone]. Thank you * Telephone Encounter - Martha Pollack LPN - 05/23/2024 9:36 AM EST Daughter asking if Palliative care referral was faxed at this time. Advised was not faxed at this time and patient is getting Nursing form [facility], but Anita (Daughter) does not want [facility] family Hospice back into the home to take care of her mother. Anita is going to reach out to some hospice places to see if they take insurance and can potato picker care for her or she will just talk to PCP at [facility] on 05/25 of other Hospice care locations. FYI * Telephone Encounter - Laurel Zavala OSA - 05/22/2024 1:39 PM EST Daughter Anita just called to let you know that when home health was in today, they felt she needed to go back to hospital but with the weather, was taken to [facility]. Daughter is unsure if they are admitting [...] on 05/05. Does not want [facility] that they had previously. Please assist with [...] Description 09/11/2024 1:00 PM EDT Office Visit [facility] [address] [place] [address] Lolis Tam DO [address] [place] [address] Scheduled Procedures Name Priority [...] Advance Directives occurred with: Patient Care Teams Health And Safety Trainer Relationship Specialty Start Date End Date Lolis Tam DO [address] [facility] [place] [address] PCP - General Family Medicine 08/13/21 documented as of this encounter
--- OUTSIDE RECORDS SUMMARY | 2024-06-15 23:37 | External Medical Summary | Summary of Care ---
Author Name Unknown Organization [facility] Address [address] [facility] [place] [address] Phone [phone] Care Team Providers Care Ged Preparation Teacher Name Role Phone Lolis Tam DO Primary Care Provider +1- [phone] Reason for Visit * Reason Onset Date Comments Home Health 05/29/2024 Encounter Details Date Type Department Care Team (Late st Contact Info) Description 05/29/2024 Telephone Family Practice [place] [address] Gallegos [address] [place] [address] [facility] [facility] [address] [facility] Allergies Active Allergy [...] in the morning. 30 Tablet Active Umeclidinium [place] 62.5 MCG/ACT Inhalation Aerosol Powder Breath Activated (INCRUSE ellipta) Inhale 1 Puff by mouth in the morning. 30 Each Active DULoxetine HCl 30 MG Oral Capsule Delayed Release Particles (Cymbalta)Indicat ions:Peripheral polyneuropathy Take 1 Capsule by mouth in the morning. Do not cut, crush or chew. 30 Capsule 2 Active levoFLOXacin 750 MG Oral Tablet (Levaquin) Take 1 Tablet by mouth in the morning. 024 2024 Discontinued Sulfamethoxazole- Trimethoprim 800-160 MG Oral Tablet (Bactrim DS) Take 1 Tablet by mouth in the morning and 1 Tablet before bedtime. Do all this for 7 days. Until gone. 14 Tablet 025 2024 Discontinued Cephalexin 500 MG Oral Capsule Take 1 Capsule by mouth in the morning and 1 Capsule before bedtime. X 7 days Ordered from [facility] on 05/22. 2024 Discontinued documented as of [...] of Assessment Author Yes 01/08/2022 6:38 PM yS Ramos RN * Do you have difficulty [...] my office note * Telephone Encounter - Lynette Reyes LPN - 05/29/2024 12:17 PM EST HH Concerns Sierra , Calling from: [facility] Report/Concerns of: See Below Symptoms: See Below Narrative: Sierra calling from [facility], she was in to see [...] mentioned that when patient was in a skilled nursing previously, they put patches on her feetfor pain which seemed to help. Sierra encouraged daughter to use the morphine and ativan. Please advise, pharmacy selected. Call back Sierra with any advice or orders at [phone] Please fax new orders to * Telephone Encounter - Gino Benson OSA - 05/29/2024 12:15 PM EST Reason for patient's call: [facility] Home care facility Caller was transferred to [facility] at the nurse line. Pt was admitted last week to their service admitted w/ CVA they stated she has some meds. She feelspain and mental issues from neuropathy. documented in this encounter Plan of Treatment Upcoming Encounters Date Type Department Care Team (Late st Contact Info) Description 09/11/2024 1:00 PM EDT [facility] [place] [address] [place] [address] Lolis Tam DO [address] [place] [address] Scheduled Procedures Name Priority [...] Advance Directives occurred with: Patient Care Teams Ged Preparation Teacher Relationship Specialty Start Date End Date Lolis Tam DO [address] [facility] [place] [address] PCP - General Family Medicine 08/13/21 documented as of this encounter
--- OUTSIDE RECORDS SUMMARY | 2024-06-15 23:37 | External Medical Summary | Summary of Care ---
Author Name Unknown Organization [facility] Address [address] [place] [address] Phone [phone] Care Team Providers Care Awning Hanger Name Role Phone Lolis Tam DO Primary Care Provider +1- [phone] Encounter Details Date Type Department Care Team (Late st Contact Info) Description 05/22/2024 Result Scan Unspecified Department <No scans attached> Allergies Active Allergy Reactions Criticality Noted Date [...] into the rectum every 3 days. Active amLODIPine Besylate 5 MG Oral Tablet [...] mouth daily with breakfast. 30 Tablet 05/02/20 Active Fluticasone-Salmet tamanna 113-14 MCG/ACT Aerosol Powder [...] morning. 30 Tablet 05/02/20 24 Active Umeclidinium [place] 62.5 MCG/ACT Inhalation Aerosol Powder Breath Activated [...] before bedtime. X 7 days Ordered from [facility] ER on 05/22. Active documented as of [...] of Assessment Author No 01/08/2022 6:38 PM EDyS Hoyos RN * Are you blind or do [...] Sy Ramos RN documented in this encounter Plan of Treatment Upcoming Encounters Date Type Department Care Team (Late st Contact Info) Description 05/25/2024 1:40 PM EST Office Visit [facility] [address] [place] [address] Lolis Tam, [address] [place] [address] 09/11/2024 1:00 PM EDT Office Visit [facility] [address] [place] [address] Lolis Tam DO [address] [place] [address] Scheduled Procedures Name Priority Associated Diagnoses Date/Ti [...] 02/21/2021, Additional history exists GFR 09/12/2024 09/13/2023, 10/0 01/2022, 02/18/2022, Additional history exists O2 ASSESSMENT COMPLETED IN PAST YEAR FOR COPD 05/05/2025 05/05/2024 Pneumococcal Vaccine: 50+ Years Completed 05/12/2023, 09/30/2022, [...] Not on filedocumented as of this encounter Procedures Procedure Name Priority Date/Time Associated Diagnosis Comments RADIOLOGY SCANNED RESULT 05/22/2024 documented in this encounter Results * RADIOLOGY SCANNED RESULT (05/22/2024) 05/22/2024 No Physician Data Unknown DIAGNOSTIC RADIOLOGY S ERVICES Final Result documented in this encounter Advance Directives * Full Code (Latest Code Status on File) Date Activated Date Inactivated Comments 01/08/2022 6:10 PM 02/24/2022 6:34 PM This order reflects the patients wishes and were consensually agreed upon. Question Answer Comments Discussion of Advance Directives occurred with: Patient Care Teams Awning Hanger Relationship Specialty Start Date End Date Lolis Tam DO [address] [facility] [place] [address] PCP - General Family Medicine 08/13/21 documented as of this encounter
--- OUTSIDE RECORDS SUMMARY | 2024-06-15 23:37 | External Medical Summary | Summary of Care ---
Author Name Unknown Organization [facility] Address [address] [facility] [place] [address] Phone [phone] Care Team Providers Care Missionary Coordinator Name Role Phone Lolis Tam DO Primary Care Provider +1- [phone] Reason for Visit * Reason Onset Date Comments Home Health 05/29/2024 LVM Encounter Details Date Type Department Care Team (Late st Contact Info) Description 05/29/2024 Telephone Family Practice [place] [address] [place] [address] [address]olis Tam [address] [facility] [place] [address] Home Health (LVM) Allergies Active Allergy [...] in the morning. 30 Tablet Active Umeclidinium [place] 62.5 MCG/ACT Inhalation Aerosol Powder Breath Activated [...] before bedtime. X 7 days Ordered from [facility] on 05/22. 2024 Discontinued documented [...] encounter Miscellaneous Notes * Telephone Encounter - Fawn Aldana LPN - 05/29/2024 2:59 PM EST Sierra calling from [facility]. Given message. Asking if something [...] EST HH Concerns Sierra , Calling from: [facility] Report/Concerns of: See Below Symptoms: See Below Narrative: Sierra calling from [facility], she was in to see [...] mentioned that when patient was in a half-way previously, they put patches on her feetfor pain which seemed to help. Sierra encouraged daughter to use the morphine and ativan. Please advise, pharmacy selected. Call back Sierra with any advice or orders at [phone] Please fax new orders to * Telephone Encounter - Gino Benson OSA - 05/29/2024 12:15 PM EST Reason for patient's call: [facility] Home care facility Caller was transferred to Lynette at the nurse line. Pt was admitted last week to their service admitted w/ CVA they stated she has some meds. She feelspain and mental issues from neuropathy. documented in this encounter Plan of Treatment Upcoming Encounters Date Type Department Care Team (Late st Contact Info) Description 09/11/2024 1:00 PM EDT Office Visit [facility] [place] Tima Gallegos [address] [place] [address] [address] Tam [address] [facility] [place] [place] [address] Scheduled Procedures Name Priority Associated Diagnoses Date/Ti [...] FOR COPD 05/05/2025 05/05/2024 GFR 05/22/2025 05/22/2024, /01/2024, 02/22/2022, Additional history exists Pneumococcal Vaccine: 50+ [...] Advance Directives occurred with: Patient Care Teams Missionary Coordinator Relationship Specialty Start Date End Date Lolis Tam DO [address] [facility], [place] [place] [address] PCP - General Family Medicine 08/13/21 documented as of this encounter
--- OUTSIDE RECORDS SUMMARY | 2024-06-15 23:37 | External Medical Summary | Summary of Care ---
Author Name Unknown Organization [facility] Address [address] [facility] [place] [address] Phone [phone] Care Team Providers Care Sales Lead Name Role Phone Lolis Tam DO Primary Care Provider +1- [phone] Reason for Visit * Reason Onset Date Comments Home Health 05/29/2024 LVM Encounter Details Date Type Department Care Team (Late st Contact Info) Description 05/29/2024 Telephone Family Practice [place] Tima Gallegos [address] [place] [address] Lolis Tam DO [address] [facility] [address] Home Health (LVM) Allergies Active [...] in the morning. 30 Tablet Active Umeclidinium [place] 62.5 MCG/ACT Inhalation Aerosol Powder Breath Activated [...] before bedtime. X 7 days Ordered from [facility] on 05/22. 2024 Discontinued documented as [...] Symptoms: See Below Narrative: Sierra calling from [facility], she was in to see patient [...] Sierra with any advice or orders at [phone] Please fax new orders to * Telephone Encounter - Gino Benson OSA - 05/29/2024 12:15 PM EST Reason for patient's call: [facility] facility Caller was transferred to Lynette at the nurse line. Pt was admitted last week to their service admitted w/ CVA they stated she has some meds. She feelspain and mental issues from neuropathy. documented in this encounter Plan of Treatment Upcoming Encounters Date Type Department Care Team (Late st Contact Info) Description 09/11/2024 1:00 PM EDT Office Visit [facility]1] [address] [place] [place] [address] Lolis Tam DO [address] [place] [address] Scheduled Procedures Name Priority [...] FOR COPD 05/05/2025 05/05/2024 GFR 05/22/2025 05/22/2024, 08/16, 02/22/2022, Additional history exists Pneumococcal Vaccine: 50+ [...] Advance Directives occurred with: Patient Care Teams Sales Lead Relationship Specialty Start Date End Date Lolis Tam DO [address] [facility] [place] [address] PCP - General Family Medicine 08/13/21 documented as of this encounter
--- OUTSIDE RECORDS SUMMARY | 2024-06-15 23:37 | External Medical Summary | Summary of Care ---
Author Name Unknown Organization [facility] Address [address] [facility] [place] [address] Phone [phone] Care Team Providers Care Sales Manager Prearranged Funerals Name Role Phone Lolis Tam DO Primary Care Provider +1- [phone] Reason for Visit * Reason Onset Date Comments Home Health 05/29/2024 LVM Encounter Details Date Type Department Care Team (Late st Contact Info) Description 05/29/2024 Telephone Family Practice [place] Tima Gallegos [address] [place] [address] Lolis Tam DO [address] [facility] [place] [facility] [address] Home Health (LVM) Allergies Active [...] in the morning. 30 Tablet Active Umeclidinium [place] 62.5 MCG/ACT Inhalation Aerosol Powder Breath Activated [...] before bedtime. X 7 days Ordered from [facility] on 05/22. 2024 Discontinued documented as of [...] No 05/05/2024 Does the household have a [facility]-lea general hospitallar source of income? (Household - for ages [...] encounter Miscellaneous Notes * Addendum Note - Lolis Tam DO [...] 05/29/2024 2:59 PM EST Sierra calling from [facility]. Given message. Asking if something can be [...] EST HH Concerns Sierra , Calling from: [facility] Report/Concerns of: See Below Symptoms: See Below Narrative: Sierra calling from [facility], she was in to see patient on [...] mentioned that when patient was in a [place] [facility] [place] previously, they put patches on her feetfor pain which seemed to help. Sierra encouraged daughter to use the morphine and ativan. Please advise, pharmacy selected. Call back Sierra with any advice or orders at [phone] Please fax new orders to * Telephone Encounter - Gino Benson OSA - 05/29/2024 12:15 PM EST Reason for patient's call: [facility] facility Caller was transferred to [facility] at the nurse line. Pt was admitted last week to their service admitted w/ CVA they stated she has some meds. She feelspain and mental issues from neuropathy. documented in this encounter Plan of Treatment Upcoming Encounters Date Type Department Care Team (Late st Contact Info) Description 09/11/2024 1:00 PM EDT Office Visit [facility] [address] [place] [address] Lolis Tam DO [address] [place] [address] Scheduled Procedures Name Priority [...] Directives occurred with: Patient Care Teams Sales Manager Prearranged Funerals Relationship Specialty Start Date End Date Lolis Tam DO [address] [facility] [place] [facility] [place] [id number] PCP - General Family Medicine 08/13/21 documented as of this encounter
--- OUTSIDE RECORDS SUMMARY | 2024-06-15 23:37 | External Medical Summary | Summary of Care ---
Author Name Unknown Organization [facility] Address [address] [facility] [place] [place] [address] Phone [phone] Care Team Providers Care Optical Effects Line Up Person Name Role Phone Lolis Tam DO Primary Care Provider +1- [phone] Reason for Visit * Reason Onset Date Comments Advice 05/24/2024 Encounter Details Date Type Department Care Team (Late st Contact Info) Description 05/24/2024 [facility] [address] [place] [address] Lolis Tam DO [address] [facility] [place] [facility] [address] Advice Allergies Active Allergy Reactions Criticality Noted [...] morning. 30 Tablet 05/02/20 24 Active Umeclidinium [place] 62.5 MCG/ACT Inhalation Aerosol Powder Breath Activated [...] before bedtime. X 7 days Ordered from [facility] ER on 05/22. Active documented as of [...] Encounter - Tanja Tsai LPN - 05/24/2024 11:14 AM EST Second encounter noted, home nursing sending order for catheter change * Telephone Encounter - Eleni Steele OSA - 05/24/2024 10:18 AM EST Patient daughter aliceng a call stating that she has a HH nurse from [place] that comes down to her house. Her moms catheter bag needs to be changed and the tube needs to be cleaned, it has not been done in 4 weeks. She would like to know if Dr. Tam can put in an order for it to be completed. documented in this encounter Plan of Treatment Upcoming Encounters Date Type Department Care Team (Late st Contact Info) Description 05/25/2024 1:40 PM EST Office Visit [facility] [place] [address] [place] [address] Lolis Tam DO [address] [place] [address] 09/11/2024 1:00 PM EDT Office Visit [facility] [address] [place] [address] [place] [address] Lolis Tam DO [address] [place] [address] [place] [address] Scheduled Procedures Name Priority Associated Diagnoses Date/Ti [...] Advance Directives occurred with: Patient Care Teams Optical Effects Line Up Person Relationship Specialty Start Date End Date Lolis Tam DO [address] [facility] [place] [facility] [place] [address] PCP - General Family Medicine 08/13/21 documented as of this encounter
--- OUTSIDE RECORDS SUMMARY | 2024-06-15 23:37 | External Medical Summary | Summary of Care ---
Author Name Unknown Organization [facility] Address [address] [facility] [place] [address] Phone [phone] Care Team Providers Care Clinical Microbiologist Name Role Phone Lolis Tam DO Primary Care Provider +1- [phone] Encounter Details Date Type Department Care Team (Late st Contact Info) Description 05/24/2024 [facility] [facility] [place] [address] Lolis Tam DO [address] [place] [address] Allergies Active Allergy Reactions Criticality Noted [...] morning. 30 Tablet 05/02/20 24 Active Umeclidinium [place] 62.5 MCG/ACT Inhalation Aerosol Powder Breath Activated [...] before bedtime. X 7 days Ordered from [facility] ER on 05/22. Active documented as [...] Description 05/25/2024 1:40 PM EST Office Visit Family Practice [address] [place] [address] Lolis Tam DO [address] [place] [address] 09/11/2024 1:00 PM EDT Office Visit [facility] [address] [place] [address] Lolis Tam DO [address] [place] [address] Scheduled Procedures Name Priority Associated Diagnoses Date/Ti [...] 02/19/2023, 02/21/2021, Additional history exists GFR 09/12/2024 05/22/2024, 0401/2024, 02/22/2022, Additional history exists O2 ASSESSMENT COMPLETED IN [...] Procedure Name Priority Date/Time Associated Diagnosis Comments CHEMISTRY-OUTSIDE Routine 05/22/2024 documented in this encounter Results * (ABNORMAL) CHEMISTRY-OUTSIDE (05/22/2024) Not all results display below - see scan for full detail OUTSIDE LAB (SEE SCANNED REPORT) Comment:ED LABS - TROP, CMP, UA CREATININE 0.60 0.40 - 1.50 MG/DL OUTSIDE LAB (SEE SCANNED REPORT) EGFR 90 ML/MIN OUTSIDE LA B (SEE SCANNED REPORT) POTASSIUM 3.6 3.6 - 5.0 MMOL/L OUTSIDE LAB (SEE SCANNED REPORT) GLUCOSE 118(A) 65 - 110 MG/DL OUTSIDE LAB (SEE SCANNED REPORT) HOURS FASTING OUTSID E LAB (SEE SCANNED REPORT) TRIGLYCERIDES-OUT SIDE LAB OUTSIDE LAB (SEE SCANNED REPORT) CHOLESTEROL-OUTSI DE LAB OUTSIDE LAB (SEE SCANNED REPORT) HDL-OUTSIDE LAB OUTS TABITHA LAB (SEE SCANNED REPORT) CHOL/HDL RATIO-OUTSIDE LAB OUTSIDE LA B (SEE SCANNED REPORT) LDL (CALCULATED)-OUTS TABITHA LAB OUTSIDE LAB (SEE SCANNED REPORT) LDL (DIRECT MEASURE)-OUTSIDE LAB OUTSIDE LAB (SEE SCANNED REPORT) HEMOGLOBIN, V4U-VNEOEHS LAB OUTSIDE LAB (SEE SCANNED REPORT) PHOSPHORUS-OUTSID E LAB OUTSIDE LAB (SEE SCANNED REPORT) PTH-OUTSIDE LAB OUTS TABITHA LAB (SEE SCANNED REPORT) MICROALBUMIN RATIO-OUTSIDE LAB OUTSIDE LA B (SEE SCANNED REPORT) PROTEIN, UA-OUTSIDE LAB OUTSIDE LAB (SEE SCANNED REPORT) HGB OUTSIDE LA B (SEE SCANNED REPORT) 05/22/2024 [facility] [place] LABORATORY Final Result OUTSIDE LAB (SEE SCANNED REPORT) documented in this encounter Advance Directives * Full Code (Latest Code Status on File) Date Activated Date Inactivated Comments 01/08/2022 6:10 PM 02/24/2022 6:34 PM This order reflects the patients wishes and were consensually agreed upon. Question Answer Comments Discussion of Advance Directives occurred with: Patient Care Teams Clinical Microbiologist Relationship Specialty Start Date End Date Lolis Tam DO [address] [facility] [place] [address] PCP - General Family Medicine 08/13/21 documented as of this encounter
--- OUTSIDE RECORDS SUMMARY | 2024-06-15 23:37 | External Medical Summary | Summary of Care ---
Author Name Unknown Organization [facility] Address [address] [place] [facility] [place] [address] Phone [phone] Care Team Providers Care Regional Office Coordinator Name Role Phone Lolis Tam DO Primary Care Provider +1- [phone] Reason for Visit * Reason Onset Date Comments Advice 05/24/2024 Catheter problem Encounter Details Date Type Department Care Team (Late st Contact Info) Description 05/24/2024 [facility]phone [facility] [place] [address] Lolis Tam DO [address] [place] [address] Advice (Catheter problem) Allergies Active Allergy Reactions Criticality Noted Date [...] morning. 30 Tablet 05/02/20 24 Active Umeclidinium [place] 62.5 MCG/ACT Inhalation Aerosol Powder Breath Activated [...] before bedtime. X 7 days Ordered from [facility] ER on 05/22. Active documented [...] Encounter - Tanja Tsai LPN - 05/24/2024 11:09 AM EST Spoke with [facility] home nursing nurse, asking for order for catheter changes, will fax order for signature to office. Also reports hospice agency was evaluating today as well so they are not sure how long they will be seeing pt but will send to have on hand if they continue services. * Telephone Encounter - Genet Kenney OSA - 05/24/2024 10:21 AM EST Reason for Val's call: catheter problem Please contact Val at: [phone] documented in this encounter Plan of Treatment Upcoming Encounters Date Type Department Care Team (Late st Contact Info) Description 05/25/2024 1:40 PM EST Office Visit [facility] [address]ima [address]leg[address] [place] [address] Lolis Tam DO [address] [place] [address] 09/11/2024 1:00 PM EDT Office Visit [facility] [address] [place] [address] Lolis Tam DO [address] [place] [address] Scheduled Procedures Name Priority Associated Diagnoses Date/Ti [...] *SPIROMETRY ONCE FOR ASTHMA-ADULT 04/09/2022 COVID-19 Vaccine (4 - 2024-25 season) 2024 03/26/2021, 06/15/2020, 05/25/2020 Influenza Vaccine [...] Advance Directives occurred with: Patient Care Teams Regional Office Coordinator Relationship Specialty Start Date End Date Lolis Tam DO [address] [facility] [place] [address] PCP - General Family Medicine 08/13/21 documented as of this encounter
--- OUTSIDE RECORDS SUMMARY | 2024-06-15 23:37 | External Medical Summary | Summary of Care ---
Author Name Unknown Organization [facility] Address [address] [facility] [place] [address] Phone [phone] Care Team Providers Care Speech Communication Instructor Name Role Phone Lolis Tam DO Primary Care Provider +1- [phone] Reason for Visit * Reason Onset Date Comments Advice 05/22/2024 Hospice Encounter Details Date Type Department Care Team (Late st Contact Info) Description 05/22/2024 Telephone Family Practice [place] Tima [address]leg[address] [place] [place] [address] Lolis Tam DO [address] [facility] [place] [address] Advice (Hospice) Allergies [...] morning. 30 Tablet 05/02/20 24 Active Umeclidinium [place] 62.5 MCG/ACT Inhalation Aerosol Powder Breath Activated [...] before bedtime. X 7 days Ordered from [facility] ER on 05/22. Active documented as [...] Telephone Encounter - Tanja Tsai LPN - 05/25/2024 1:07 PM EST FYI * Telephone Encounter - Alma Rosa Jay OSA - 05/25/2024 11:02 AM EST Spoke to Anita to confirm appt. She sts Hospice is starting today and pt is not able to come in for an appt. * Telephone Encounter - Rhiannon Acosta OSA - 05/24/2024 2:07 PM EST Tried to call Anita locke. Mailbox is full and unable to leave [...] the name of the hospice is [facility] hospice care in [place]. They can start tomorrow. Wondering if Dr Tam wants to discharge her and cancel the appt tomorrow or if she would want her to start after she sees Dr Tam tomorrow. [phone]. Thank you * Telephone Encounter - Martha Pollack LPN - 05/23/2024 9:36 AM EST Daughter asking if Palliative care referral was faxed at this time. Advised was not faxed at this time and patient is getting Nursing form [facility], but Anita (Daughter) does not want [facility] back into the home to take care of her mother. Anita is going to reach out to some hospice places to see if they take insurance and can scrap picker care for her or she will [...] but with the weather, was taken to [facility]. Daughter is unsure if they are admitting [...] on 05/05. Does not want [facility] that they had previously. Please assist with [...] 09/11/2024 1:00 PM EDT Office [facility] [address] [place] [address] Lolis Tam DO [address] [place] [address] Scheduled Procedures Name Priority [...] Advance Directives occurred with: Patient Care Teams Speech Communication Instructor Relationship Specialty Start Date End Date Lolis Tam DO [address] [facility] [place] [address] PCP - General Family Medicine 08/13/21 documented as of this encounter
--- OUTSIDE RECORDS SUMMARY | 2024-06-15 23:37 | External Medical Summary | Summary of Care ---
Author Name Unknown Organization [facility] Address [address] [facility] [place] [address] Phone [phone] Care Team Providers Care Erosion Control Specialist Name Role Phone Lolis Tam DO Primary Care Provider +1- [phone] Reason for Visit * Reason Onset Date Comments Advice 05/22/2024 Hospice Encounter Details Date Type Department Care Team (Late st Contact Info) Description 05/22/2024 Telephone Family Practice [address] [place] [address] [place] [address] Lolis Tam DO [address] [facility] [place] [address] Advice (Hospice) Allergies [...] morning. 30 Tablet 05/02/20 24 Active Umeclidinium [place] 62.5 MCG/ACT Inhalation Aerosol Powder Breath Activated [...] before bedtime. X 7 days Ordered from [facility] on 05/22. Active documented as of [...] that the name of the hospice is [facility] hospice care in [place]. They can start tomorrow. Wondering if Dr Tam wants to discharge her and cancel the appt tomorrow or if she would want her to start after she sees Dr Tam tomorrow. Please call Anita back asapat [phone]. Thank you * Telephone Encounter - Martha Pollack LPN - 05/23/2024 9:36 AM EST Daughter asking if Palliative care referral was faxed at this time. Advised was not faxed at this time and patient is getting Nursing form [facility], but Anita (Daughter) does not want [facility] family Hospice back into the home to take care of her mother. Anita is going to reach out to some hospice places to see if they take insurance and can hop picker care for her or she will just talk to PCP at [facility] on 05/25 of other Hospice care locations. FYI * Telephone Encounter - Laurel Zavala OSA - 05/22/2024 1:39 PM EST Daughter Anita just called to let you know that when home health was in today, they felt she needed to go back to hospital but with the weather, was taken to [facility]. Daughter is unsure if they are admitting [...] on 05/05. Does not want [facility] that they had previously. Please assist with [...] Description 05/25/2024 1:40 PM EST Office Visit [facility] [address], [place] [address] [place] [address] Lolis Tam DO [address] [place] [address] 09/11/2024 1:00 PM EDT Office Visit [facility] [address], [place] [address] [place] [address] Lolis Tam DO [address] [place] [address] Scheduled Procedures Name Priority Associated Diagnoses Date/Ti [...] Advance Directives occurred with: Patient Care Teams Erosion Control Specialist Relationship Specialty Start Date End Date Lolis Tam DO [address] [facility] [place] [address] PCP - General Family Medicine 08/13/21 documented as of this encounter
--- OUTSIDE RECORDS SUMMARY | 2024-06-15 23:37 | External Medical Summary | Summary of Care ---
Author Name Unknown Organization [facility] Address [address] [facility] [place] [address] Phone [phone] Care Team Providers Care Radial Drill Press Set Up Operator Name Role Phone Lolis Tam DO Primary Care Provider +1- [phone] Reason for Visit * Reason Onset Date Comments Advice 05/22/2024 Hospice Encounter Details Date Type Department Care Team (Late st Contact Info) Description 05/22/2024 Telephone Family Practice [address] [place] [address] [place] [address] Lolis Tam DO [address] [facility] [place] [address] Advice (Hospice) Allergies Active [...] morning. 30 Tablet 05/02/20 24 Active Umeclidinium [place] 62.5 MCG/ACT Inhalation Aerosol Powder Breath Activated [...] before bedtime. X 7 days Ordered from [facility] on 05/22. Active documented [...] the name of the hospice is [facility] hospice care in [place]. They can start tomorrow. Wondering if Dr Tam wants to discharge her and cancel the appt tomorrow or if she would want her to start after she sees Dr Tam tomorrow. Please call Anita back asawyt [phone]. Thank you * Telephone Encounter - Martha Polalck LPN - 05/23/2024 9:36 AM EST Daughter asking if Palliative care referral was faxed at this time. Advised was not faxed at this time and patient is getting Nursing form [facility], but Anita (Daughter) does not want [facility] family Hospice back into the home to take care of her mother. Anita is going to reach out to some hospice places to see if they take insurance and can fiber picker care for her or she will just talk to PCP at [facility] on 05/25 of other Hospice care locations. FYI * Telephone Encounter - Laurel Zavala OSA - 05/22/2024 1:39 PM EST Daughter Anita just called to let you know that when home health was in today, they felt she needed to go back to hospital but with the weather, was taken to [facility]. Daughter is unsure if they are admitting [...] on 05/05. Does not want [facility] that they had previously. Please assist with [...] 05/25/2024 1:40 PM EST Office Visit [facility] [place] [address] [place] [address] Lolis Tam, DO [address] [place] [address] 09/11/2024 1:00 PM EDT Office Visit Family Practice [place] [address] [place] [address] Lolis Tam, DO [address] [place] [address] Scheduled Procedures Name Priority Associated Diagnoses Date/Ti [...] Advance Directives occurred with: Patient Care Teams Radial Drill Press Set Up Operator Relationship Specialty Start Date End Date Lolis Tam DO [address] [facility] [place] [address] PCP - General Family Medicine 08/13/21 documented as of this encounter
--- OUTSIDE RECORDS SUMMARY | 2024-06-15 23:38 | External Medical Summary | Summary of Care ---
Author Name Unknown Organization [facility] Address [address] [facility] [address] Phone [phone] Care Team Providers Care Record Label Intern Name Role Phone Lolis Tam DO Primary Care Provider +1- [phone] Reason for Referral * Ancillary Services (Within 10 days (routine)) - Pending Review Specialty Diagnoses / Procedures Referred By Nito t Referred To Contact HOME CARE / Palliative Medicine Diagnoses Hemiplegia, post-stroke (HCC) Mild vascular dementia without behavioral disturbance, psychotic disturbance, mood disturbance, or anxiety (HCC) Bedridden Unable to care for self 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 External - [facility] Reason for Visit * Reason Onset Date Comments Fax 05/23/2024 Hospice referral Encounter Details Date Type Department Care Team (Late st Contact Info) Description 05/23/2024 Telephone Family Practice [place] [address] [place] [address] Lolis Tam DO [address] [place] [address] Fax (Hospice referral) Allergies Active Allergy Reactions Criticality Noted Date [...] as of this encounter (statuses as of 05/23/2024) Medications acetaminophen (TYLENOL) 325 MG Tablet Take [...] morning. 30 Tablet 05/02/20 24 Active Umeclidinium [place] 62.5 MCG/ACT Inhalation Aerosol Powder Breath Activated [...] before bedtime. X 7 days Ordered from [facility] on 05/22. Active documented as of this encounter (statuses as of 05/23/2024) Active Problems Problem Noted Date Diagnosed Date [...] as of this encounter (statuses as of 05/23/2024) Resolved Problems Problem Noted Date Diagnosed Date Resolved Date COVID-19 02/04/2022 05/05/2024 Chest pain 01/08/2022 05/05/2024 Lower leg DVT (deep venous t hromboembolism), acute, left 06/18/2021 05/05/2024 documented as of this encounter (statuses as of 05/23/2024) Social History Tobacco Use Types Packs/Day Years [...] of Assessment Author No 01/08/2022 6:38 PM EDT Sy Singh RN documented as of this encounter Mental Status * Because of a physical, mental, or emotional condition, do you have serious difficulty concentrating, remembering, or making decisions? (5 years old or older) Answer Entry Date Author No 01/08/2022 6:38 PM EDT Sy Singh RN documented in this encounter Miscellaneous Notes * Telephone Encounter - Alma Rosa Jay OSA - 05/23/2024 1:10 PM EST Faxed * Telephone Encounter - Lolis Tam DO - 05/23/2024 12:57 PM EST Referral signed * Telephone Encounter - Sumit Mckeon OSA - 05/23/2024 12:39 PM EST Caller requesting the following information to be faxed: Name/Company of caller: [facility] Information requested to be faxed: Hospice referral Fax number: [phone] Attention to Name/Company: [facility] Any additional information?: None documented in this encounter Plan of Treatment Upcoming Encounters Date Type Department Care Team (Late st Contact Info) Description 05/25/2024 1:40 PM EST Office Visit [facility] [place] [address] [place] [address] Lolis Tam DO [address] [place] [address] 09/11/2024 1:00 PM EDT Office Visit [facility] [place] [address] [place] [address] Lolis Tam DO [address] [place] [address] Scheduled Procedures Name Priority Associated Diagnoses Date/Ti me ENDOSCOPIC RETROGRADE CHOLANGIOPANCREATOGRAPHY (ERCP) DIAGNOSTIC Recall Choledocholithiasis Scheduled Referrals Name Type Priority Associated Diagnoses Orde r Schedule HOSPICE REFERRAL OP Referral Within 10 da ys (routine) Hemiplegia, post-stroke (HCC) Mild vascular dementia without behavioral disturbance, psychotic disturbance, mood disturbance, or anxiety (HCC) Bedridden Unable to care for self 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) Ordered: 05/23/2024 Health Maintenance Due Date Last Done Comments [...] as of this encounter Visit Diagnoses Diagnosis Hemiplegia, post-stroke (HCC)- Primary Hemiplegia affecting unspecified side, late effect of cerebrovascular disease Mild vascular dementia without behavioral disturbance, psychotic disturbance, mood disturbance, or anxiety (HCC) Bedridden Bed confinement status Unable to care for self 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 Question Answer Comments Discussion of Advance Directives occurred with: Patient Care Teams Record Label Intern Relationship Specialty Start Date End Date Lolis Tam DO [address] [facility] [place] [address] PCP - General Family Medicine 08/13/21 documented as of this encounter
--- OUTSIDE RECORDS SUMMARY | 2024-06-15 23:38 | External Medical Summary | Summary of Care ---
Author Name Unknown Organization [facility] Address [address] [facility] [address] Phone [phone] Care Team Providers Care On Awake Counselor Name Role Phone Lolis Tam DO Primary Care Provider +1- [phone] Reason for Referral * Ancillary Services (Within 10 days (routine)) - Pending Review Specialty Diagnoses / Procedures Referred By Nito t Referred To Contact HOME CARE / Palliative Medicine Diagnoses Hemiplegia, post-stroke (HCC) Mild vascular dementia without behavioral disturbance, psychotic disturbance, mood disturbance, or anxiety (HCC) Bedridden Unable to care for self 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 External - [facility] Reason for Visit * Reason Onset Date Comments Fax 05/23/2024 Hospice referral Encounter Details Date Type Department Care Team (Late st Contact Info) Description 05/23/2024 Telephone Family Practice [place] [address] [place] [address] Lolis Tam DO [address] [place] [address] Fax (Hospice referral) Allergies Active Allergy Reactions [...] morning. 30 Tablet 05/02/20 24 Active Umeclidinium [place] 62.5 MCG/ACT Inhalation Aerosol Powder Breath Activated [...] before bedtime. X 7 days Ordered from [facility] on 05/22. Active documented as of this [...] encounter Miscellaneous Notes * Telephone Encounter - Ashley Simons OSA - 05/23/2024 2:03 PM EST Caller requesting the following information to be faxed: Name/Company of caller: [facility] Information requested to be faxed: Supporting documentation for the hospice referral- face sheet/demographics sheet, history & physical, recent office notes or hospital notes Fax number: [phone] Attention to Name/Company: [facility] Any additional information?: N/A * Telephone Encounter - Alma [place] Jay OSA - 05/23/2024 1:10 PM EST Faxed * Telephone Encounter - Lolis Tam DO - 05/23/2024 12:57 PM EST Referral signed * Telephone Encounter - Sumit Mckeon OSA - 05/23/2024 12:39 PM EST Caller requesting the following information to be faxed: Name/Company of caller: [facility] Information requested to be faxed: Hospice referral Fax number: [phone] Attention to Name/Company: [facility] Any additional information?: None documented in this encounter Plan of Treatment Upcoming Encounters Date Type Department Care Team (Late st Contact Info) Description 05/25/2024 1:40 PM EST Office Visit [facility] [address] [place] [address] Lolis Tam, [address] [place] [address] 09/11/2024 1:00 PM EDT Office Visit [facility] [place] [address] [place] [address] Lolis Tam, [address] [place] [facility] [address] Scheduled Procedures Name Priority Associated Diagnoses Date/Ti [...] 02/21/2021, Additional history exists GFR 09/12/2024 09/13/2023, 1001/2022, 02/18/2022, Additional history exists O2 ASSESSMENT COMPLETED [...] Advance Directives occurred with: Patient Care Teams On Awake Counselor Relationship Specialty Start Date End Date Lolis Tam DO [address] [facility] [place] [address] PCP - General Family Medicine 08/13/21 documented as of this encounter
--- OUTSIDE RECORDS SUMMARY | 2024-06-15 23:38 | External Medical Summary | Summary of Care ---
Author Name Unknown Organization [facility] Address [address] [facility] [address] Phone [phone] Care Team Providers Care Photoradio Operator Name Role Phone Lolis Tam DO Primary Care Provider +1- [phone] Reason for Visit * Reason Onset Date Comments Advice 05/20/2024 Encounter Details Date Type Department Care Team (Late st Contact Info) Description 05/20/[facility]24 [facility] [facility] [place] [address] Lolis Tam DO [address] [facility] [address] Advice Allergies Active Allergy Reactions [...] as of this encounter (statuses as of 05/20/2024) Medications acetaminophen (TYLENOL) 325 MG Tablet Take [...] morning. 30 Tablet 05/02/20 24 Active Umeclidinium [place] 62.5 MCG/ACT Inhalation Aerosol Powder Breath Activated (INCRUSE ellipta) Inhale 1 Puff by mouth in the morning. 30 Each 05/02/20 24 Active DULoxetine HCl 30 MG Oral Capsule Delayed Release Particles (Cymbalta)Indicati ons:Peripheral polyneuropathy Take 1 Capsule by mouth in the morning. Do not cut, crush or chew. 30 Capsule 2 05/05/20 Active Sulfamethoxazole-T rimethoprim 800-160 MG Oral Tablet (Bactrim DS) Take 1 Tablet by mouth in the morning and 1 Tablet before bedtime. Do all this for 7 days. Until gone. 14 Tablet 05/20/19 025 Active documented as of this encounter (statuses as of 05/20/2024) Active Problems Problem Noted Date Diagnosed Date [...] as of this encounter (statuses as of 05/20/2024) Resolved Problems Problem Noted Date Diagnosed Date Resolved Date COVID-19 02/04/2022 05/05/2024 Chest pain 01/08/2022 05/05/2024 Lower leg DVT (deep venous t hromboembolism), acute, left 06/18/2021 05/05/2024 documented as of this encounter (statuses as of 05/20/2024) Social History Tobacco Use Types Packs/Day Years [...] Telephone Encounter - Tanja Tsai LPN - 05/20/2024 10:29 AM EST Mailbox full, unable to leave message * Addendum Note - Usama Patrick PA-C - 05/20/2024 9:37 AM ESTAddended by: USAMA PATRICK on: 05/20/2024 09:37 AM Modules accepted: Orders * Telephone Encounter - Usama Patrick PA-C - 05/20/2024 9:36 AM EST Noted. Reviewed most recent available culture. It appears that she was discharged home with 7 days of Levaquin. I will place order for Bactrim to cover over the weekend until she can be seen. * Telephone Encounter - Tanja Tsai LPN - 05/20/2024 9:35 AM EST Attempted to contact pt EC. [facility] not accepting calls at this time, will continue to try to contact. * Telephone Encounter - Usama Patrick PA-C - 05/20/2024 9:32 AM EST Reviewed in detail. She was recently admitted to [facility] for complicated UTI. Please inquire ifpedro is currently on antibiotic therapy. Could consider initiation of therapy until she is seen in office on Wednesday and can have urine completed. * Telephone Encounter - Tanja Tsai LPN - 05/20/2024 9:23 AM EST Looks like PT/OT/nursing as well as palliative care referrals placed, bedridden, upcoming appt withp 05/22, please advise * Telephone Encounter - Marcia Leong OSA - 05/20/2024 7:49 AM EST Pts Anita calling in stating pt is stating her back hurts near the right kidney. Pt does have a stent and catheter. Anita stated urine in the bag is a dark brown color. She is asking what she should do for her. Declined scheduling an appt due to using transportation. Please advise. documented in this encounter Plan of Treatment Upcoming Encounters Date Type Department Care Team (Late st Contact Info) Description 05/22/2024 1:40 PM EST Office Visit [facility] [place] [address] [place] [address] Lolis Tam DO [address] [place] [address] 09/11/2024 1:00 PM EDT Office Visit [facility] [address] [place] [address] [place] [address] Lolis Tam DO [address] [place] [address] Scheduled Procedures Name Priority Associated Diagnoses Date/Ti [...] FOR ASTHMA-ADULT 04/09/2022 COVID-19 Vaccine ( - 2023- season) 2024 03/26/2021, 06/15/2020, 05/25/2020 Influenza Vaccine [...] Advance Directives occurred with: Patient Care Teams Photoradio Operator Relationship Specialty Start Date End Date Lolis Tam DO [address] [facility] [place] [address] PCP - General Family Medicine 08/13/21 documented as of this encounter
--- OUTSIDE RECORDS SUMMARY | 2024-06-15 23:38 | External Medical Summary | Summary of Care ---
Author Name Unknown Organization [facility] Address [address] [facility] [address] Phone [phone] Care Team Providers Care Support Team Member Name Role Phone Lolis Tam DO Primary Care Provider +1- [phone] Reason for Referral * Ancillary Services (Within 10 days (routine)) - Pending Review Specialty Diagnoses / Procedures Referred By Nito t Referred To Contact HOME CARE / Palliative Medicine Diagnoses Hemiplegia, post-stroke (HCC) Mild vascular dementia without behavioral disturbance, psychotic disturbance, mood disturbance, or anxiety (HCC) Bedridden Unable to care for self 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 External - [facility] Reason for Visit * Reason Onset Date Comments Fax 05/23/2024 Hospice referral Encounter Details Date Type Department Care Team (Late st Contact Info) Description 05/23/2024 Telephone Family Practice [place] [address] [place] [address] Lolis Tam DO [address] [place] [address] Fax (Hospice referral) Allergies Active Allergy Reactions [...] morning. 30 Tablet 05/02/20 24 Active Umeclidinium [place] 62.5 MCG/ACT Inhalation Aerosol Powder Breath Activated [...] before bedtime. X 7 days Ordered from [facility] on 05/22. Active documented as of [...] - Alma Rosa Jay OSA - 05/23/2024 2:24 PM EST Faxed requested info * Telephone Encounter - Ashley Simons OSA - 05/23/2024 2:03 PM EST Caller requesting the following information to be faxed: Name/Company of caller: [facility] Information requested to be faxed: Supporting documentation for the hospice referral- face sheet/demographics sheet, history & physical, recent office notes or hospital notes Fax number: [phone] Attention to Name/Company: [facility] Any additional information?: N/A * Telephone Encounter - Alma Rosa Jay OSA - 05/23/2024 1:10 PM EST Faxed * Telephone Encounter - Lolis Tam DO - 05/23/2024 12:57 PM EST Referral signed * Telephone Encounter - Sumit Mckeon OSA - 05/23/2024 12:39 PM EST Caller requesting the following information to be faxed: Name/Company of caller: [facility] Information requested to be faxed: Hospice referral Fax number: [phone] Attention to Name/Company: [facility] Any additional information?: None documented in this encounter Plan of Treatment Upcoming Encounters Date Type Department Care Team (Late st Contact Info) Description 05/25/2024 1:40 PM EST Office Visit [facility] [place] [address] [place] [address] Lolis Tam, [address] [place] [address] 09/11/2024 1:00 PM EDT Office Visit [facility] [address], [place] [address] [place] [address] Lolis Tam, [address] [place] [address] Scheduled Procedures Name Priority Associated Diagnoses Date/Ti [...] Advance Directives occurred with: Patient Care Teams Support Team Member Relationship Specialty Start Date End Date Lolis Tam DO [address] [facility] [place] [address] PCP - General Family Medicine 08/13/21 documented as of this encounter
--- OUTSIDE RECORDS SUMMARY | 2024-06-15 23:38 | External Medical Summary | Summary of Care ---
Author Name Unknown Organization [facility] Address 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 External - [facility] Reason for Visit * Reason Onset Date Comments Fax 05/23/2024 Hospice referral Encounter Details Date Type Department Care Team (Late st Contact Info) Description 05/23/2024 Telephone Family Practice [address] [place] [address] Lolis Tam DO [address] [place] [address] Fax (Hospice referral) Allergies Active Allergy Reactions [...] morning. 30 Tablet 05/02/20 24 Active Umeclidinium [place] 62.5 MCG/ACT Inhalation Aerosol Powder Breath Activated [...] before bedtime. X 7 days Ordered from [facility] on 05/22. Active documented as of [...] office notes or hospital notes Fax number: [phone] Attention to Name/Company: [employer] Any additional information?: [...] to be faxed: Hospice referral Fax number: [phone] Attention to Name/Company: [employer] Any additional information?: None documented in this encounter Plan of Treatment Upcoming Encounters Date Type Department Care Team (Late st Contact Info) Description 05/25/2024 1:40 PM EST Office Visit [facility] [address] [place] [address] Lolis Tam, [address] [place] [address] 09/11/2024 1:00 PM EDT Office Visit [facility] [address] [place] [address] Lolis Tam, [address] [facility] [place] [address] Scheduled Procedures Name Priority Associated Diagnoses Date/Ti [...] Advance Directives occurred with: Patient Care Teams Pharmacy Salesperson Relationship Specialty Start Date End Date Lolis Tam DO [address] [facility] [place] [address] PCP - General Family Medicine 08/13/21 documented as of this encounter
--- OUTSIDE RECORDS SUMMARY | 2024-06-15 23:38 | External Medical Summary | Summary of Care ---
Author Name Unknown Organization [facility] Address [address] [facility] [address] Phone [phone] Care Team Providers Care Food Tester Name Role Phone Lolis Tam DO Primary Care Provider +1- [phone] Reason for Referral * Ancillary Services (Within 10 days (routine)) - Pending Review Specialty Diagnoses / Procedures Referred By Nito t Referred To Contact HOME CARE / Palliative Medicine Diagnoses Hemiplegia, post-stroke (HCC) Mild vascular dementia without behavioral disturbance, psychotic disturbance, mood disturbance, or anxiety (HCC) Bedridden Unable to care for self 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 External - [facility] Reason for Visit * Reason Onset Date Comments Fax 05/23/2024 Hospice referral Encounter Details Date Type Department Care Team (Late st Contact Info) Description 05/23/2024 Telephone Family Practice [address] [place] [address] Lolis Tam DO [address] [place] [address] Fax (Hospice referral) Allergies Active Allergy Reactions [...] morning. 30 Tablet 05/02/20 24 Active Umeclidinium [place] 62.5 MCG/ACT Inhalation Aerosol Powder Breath Activated [...] X 7 days Ordered from [facility] on 05/22. Active documented as of this [...] to be faxed: Hospice referral Fax number: [phone] Attention to Name/Company: [employer] Any additional information?: None documented in this encounter Plan of Treatment Upcoming Encounters Date Type Department Care Team (Late st Contact Info) Description 05/25/2024 1:40 PM EST Office Visit [facility] [address] [place] [address] Lolis Tam DO [address] [place] [address] 09/11/2024 1:00 PM EDT Office Visit [facility] [address] [place] [address] Lolis Tam DO [address] [place] [address] Scheduled Procedures Name Priority Associated Diagnoses Date/Ti [...] Advance Directives occurred with: Patient Care Teams Food Tester Relationship Specialty Start Date End Date Lolis Tam DO [address] [facility] [place] [address] PCP - General Family Medicine 08/13/21 documented as of this encounter
--- OUTSIDE RECORDS SUMMARY | 2024-06-15 23:38 | External Medical Summary | Summary of Care ---
Author Name Unknown Organization [facility] Address [address] 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 External - [facility] Reason for Visit * Reason Onset Date Comments Fax 05/23/2024 Hospice referral Encounter Details Date Type Department Care Team (Late st Contact Info) Description 05/23/2024 Telephone Family Practice [address] [place] [address] Lolis Tam DO [address] [place] [address] Fax (Hospice referral) Allergies Active Allergy Reactions [...] morning. 30 Tablet 05/02/20 24 Active Umeclidinium [place] 62.5 MCG/ACT Inhalation Aerosol Powder Breath Activated [...] X 7 days Ordered from [facility] on 05/22. Active documented as of [...] to be faxed: Hospice referral Fax number: [phone] Attention to Name/Company: [employer] Any additional information?: None documented in this encounter Plan of Treatment Upcoming Encounters Date Type Department Care Team (Late st Contact Info) Description 05/25/2024 1:40 PM EST Office Visit [facility] [address] [place] [address] Lolis Tam DO [address] [place] [address] 09/11/2024 1:00 PM EDT Office Visit [facility] [address] [place] [address] Lolis Tam DO [address] [place] [address] Scheduled Procedures Name Priority Associated Diagnoses Date/Ti [...] Advance Directives occurred with: Patient Care Teams Tearer Relationship Specialty Start Date End Date Lolis Tam DO [address] [facility] [place] [address] PCP - General Family Medicine 08/13/21 documented as of this encounter
--- OUTSIDE RECORDS SUMMARY | 2024-06-15 23:38 | External Medical Summary | Summary of Care ---
Author Name Unknown Organization [facility] Address [address] [facility] [place] [address] Phone [phone] Care Team Providers Care System Engineer Name Role Phone Lolis Tam DO Primary Care Provider +1- [phone] Reason for Visit * Reason Onset Date Comments Advice 05/23/2024 Encounter Details Date Type Department Care Team (Late st Contact Info) Description 05/23/2024 [facility] [address] [place] [address] Lolis Tam DO [address] [facility] [address] Advice Allergies Active Allergy Reactions Criticality [...] morning. 30 Tablet 05/02/20 24 Active Umeclidinium [place] 62.5 MCG/ACT Inhalation Aerosol Powder Breath Activated [...] before bedtime. X 7 days Ordered from [facility] ER on 05/22. Active documented as [...] Encounter - Lolis Tam DO - 05/23/2024 12:55 PM EST Please call gio soriano And obtain a number I can call to place a complaint regarding patient care and follow up * Telephone Encounter - Howsare, Kinzi K, GARMENT SEWER HAND - 05/23/2024 8:51 AM EST ED Follow Up GARMENT SEWER HAND Documentation Did patient call the office before going to ER: Yes When was patient seen: 05/22 Which ED: [facility] What were they seen for: UTI What testing did they have done: ekg, lab work, and urine tests What was the diagnosis(s) at discharge? UTI Any new medications prescribed: Yes, New medications: Keflex 500 MG 1 tab BID for 7 days. Med list updated How is patient feeling today: lower abdominal,flank pain, and Nausea Does patient have concerns today: Yes, -Daughter states ER was going to send in a new antibiotic tothe pharmacy and daughter does not know what it is or if stopped bactrim. Was patient scheduled for a follow up appointment: Yes, date 05/25/2024 I contacted [facility] medical records to get ER records from 05/22 and they will not fax info to office until patient signs a records of release form. Please have patient sign form atapt on 05/25. I contacted [facility] and patient was prescribed Keflex 500 MG 1 tab BID x 7 days. Please advice if should stop Bactrim DS and start Keflex? Contact daughter Anita * Telephone Encounter - Hanh Kessler OSA - 05/23/2024 8:38 AM EST Patients daughter called in to let PCP know that Patient was in [facility] ER 05/22/24 for UTI. ER states they want patient on something other than Bactrim. Anita wants to also discuss the patients catheter being changed because it hasn't been changed since she was admitted to [facility] a few weeks ago. Patient is scheduled for hospital discharge follow up on 05/25/24 with PCP, daughter is unable to bring sooner due to relying on help of aides for patients transport. Would like to discuss ER visit at this hospital discharge appointment as well. Reason for patient's call: Anita is concerned of antibiotics that patient is on and would like to discuss with someone while waiting longitudinal float operator back from PCP, or the 05/25/24 appt. Caller was transferred to Martha at the nurse line. documented in this encounter Plan of Treatment Upcoming Encounters Date Type Department Care Team (Late st Contact Info) Description 05/25/2024 1:40 PM EST Office Visit [facility] [address], [place] [address] [place] [address] Lolis Tam DO [address] [place] [address] 09/11/2024 1:00 PM EDT Office Visit [facility] [address], [place] [address] [place] [address] Lolis Tam DO [address] [place] [address] Scheduled Procedures Name Priority Associated Diagnoses Date/Ti [...] Advance Directives occurred with: Patient Care Teams System Engineer Relationship Specialty Start Date End Date Lolis Tam DO [address] [facility] [place] [address] PCP - General Family Medicine 08/13/21 documented as of this encounter
--- OUTSIDE RECORDS SUMMARY | 2024-06-15 23:38 | External Medical Summary | Summary of Care ---
Author Name Unknown Organization [facility] Address [address] [facility] [place] [address] Phone [phone] Care Team Providers Care Hoop Punch And Coiler Operator Name Role Phone Lolis Tam DO Primary Care Provider +1- [phone] Reason for Visit * Reason Onset Date Comments Advice 05/20/2024 Encounter Details Date Type Department Care Team (Late st Contact Info) Description 05/20/2024 [facility]phone [facility] [address] [facility] [place] [address] Lolis Tam DO [address] [facility] [address] Advice Allergies Active Allergy Reactions Criticality [...] morning. 30 Tablet 05/02/20 24 Active Umeclidinium [place] 62.5 MCG/ACT Inhalation Aerosol Powder Breath Activated [...] on file Not on file Not on uw e documented as of this encounter Functional [...] Encounter - Tanja Tsai LPN - 05/20/2024 1:43 PM EST Pt EC updated, verbalized understanding * Telephone Encounter - Tanja Tsai LPN - 05/20/2024 10:29 AM EST Mailbox full, unable to leave message * Addendum Note - Marisabel Patrick PA-C - 05/20/2024 9:37 AM ESTAddended by: MARISABEL PATRICK on: 05/20/2024 09:37 AM Modules accepted: Orders * Telephone Encounter - Marisabel Patrick PA-C - 05/20/2024 9:36 AM EST Noted. Reviewed most recent available culture. It appears that she was discharged home with 7 days of Levaquin. I will place order for Bactrim to cover over the weekend until she can be seen. * Telephone Encounter - Tanja Tsai LPN - 05/20/2024 9:35 AM EST Attempted to contact pt EC. Green [employer] not accepting calls at this time, will continue to try to contact. * Telephone Encounter - Marisabel Patrick PA-C - 05/20/2024 9:32 AM EST Reviewed in detail. She was recently admitted to [facility] for complicated UTI. Please inquire ifpedro is currently on antibiotic therapy. Could consider initiation of therapy until she is seen in office on Wednesday and can have urine completed. * Telephone Encounter - Tanja Tsai LPN - 05/20/2024 9:23 AM EST Looks like PT/OT/nursing as well as palliative care referrals placed, bedridden, upcoming appt withp 05/22, please advise * Telephone Encounter - SaloMarcia morseEASTON - 05/20/2024 7:49 AM EST Pts Anita [...] Description 05/22/2024 1:40 PM EST [facility] [place] [address] [place] [address] Lolis Tam DO [address] [place] [address] 09/11/2024 1:00 PM EDT Office Visit [facility] [address], [place] [address] [place] [address] Lolis Tam DO [address] [place] [address] Scheduled Procedures Name Priority Associated Diagnoses Date/Ti [...] Advance Directives occurred with: Patient Care Teams Hoop Punch And Coiler Operator Relationship Specialty Start Date End Date Lolis Tam DO [address] [facility] [place] [address] PCP - General Family Medicine 08/13/21 documented as of this encounter
--- OUTSIDE RECORDS SUMMARY | 2024-06-15 23:38 | External Medical Summary | Summary of Care ---
Author Name Unknown Organization [facility] Address [address] [facility] [place] [address] Phone [phone] Care Team Providers Care Medical Technicians Name Role Phone Lolis Tam DO Primary Care Provider +1- [phone] Encounter Details Date Type Department Care Team (Late st Contact Info) Description 05/24/2024 Orders Only [facility] [address] [facility] [place] [address] Lolis Tam DO [address] [place] [address] Allergies Active Allergy [...] morning. 30 Tablet 05/02/20 24 Active Umeclidinium [place] 62.5 MCG/ACT Inhalation Aerosol Powder Breath Activated [...] before bedtime. X 7 days Ordered from [facility] ER on 05/22. Active documented [...] Office Visit Family Practice [address] [place] [address] Lolis Tam DO [address] [place] [address] 09/11/2024 1:00 PM EDT [facility] [place] [address], [place] [address] [place] [address] Lolis Tam DO [address] [place] [address] Scheduled Procedures Name Priority Associated Diagnoses Date/Ti [...] LAB (SEE SCANNED REPORT) Comment:ED LABS - MAG,TROP, CBCD, INF A OR B CREATININE OUTSIDE L AB (SEE SCANNED REPORT) EGFR OUTSIDE LA B (SEE SCANNED REPORT) POTASSIUM OUTSIDE LA B (SEE SCANNED REPORT) GLUCOSE OUTSIDE LA B (SEE SCANNED REPORT) HOURS FASTING OUTSID E LAB (SEE SCANNED REPORT) TRIGLYCERIDES-OUT SIDE LAB OUTSIDE LAB (SEE SCANNED REPORT) CHOLESTEROL-OUTSI DE LAB OUTSIDE LAB (SEE SCANNED REPORT) HDL-OUTSIDE LAB OUTS TABITHA LAB (SEE SCANNED REPORT) CHOL/HDL RATIO-OUTSIDE LAB OUTSIDE LA B (SEE SCANNED REPORT) LDL (CALCULATED)-OUTS TABITHA LAB OUTSIDE LAB (SEE SCANNED REPORT) LDL (DIRECT MEASURE)-OUTSIDE LAB OUTSIDE LAB (SEE SCANNED REPORT) HEMOGLOBIN, O1C-COUHNKC LAB OUTSIDE LAB (SEE SCANNED REPORT) PHOSPHORUS-OUTSID E LAB OUTSIDE LAB (SEE SCANNED REPORT) PTH-OUTSIDE LAB OUTS TABITHA LAB (SEE SCANNED REPORT) MICROALBUMIN RATIO-OUTSIDE LAB OUTSIDE LA B (SEE SCANNED REPORT) PROTEIN, UA-OUTSIDE LAB OUTSIDE LAB (SEE SCANNED REPORT) HGB 11.2(A) 12.0 - 16.0 G/DL OUTSIDE LAB (SEE SCANNED REPORT) 05/22/2024 Yari Stearns DO LABORATORY Final Res ult OUTSIDE LAB (SEE SCANNED REPORT) documented in this encounter Advance Directives * Full Code (Latest Code Status on File) Date Activated Date Inactivated Comments 01/08/2022 6:10 PM 02/24/2022 6:34 PM This order reflects the patients wishes and were consensually agreed upon. Question Answer Comments Discussion of Advance Directives occurred with: Patient Care Teams Medical Technicians Relationship Specialty Start Date End Date Lolis Tam DO [address] [facility] [place] [address] PCP - General Family Medicine 08/13/21 documented as of this encounter
--- OUTSIDE RECORDS SUMMARY | 2024-06-15 23:38 | External Medical Summary | Summary of Care ---
Author Name Unknown Organization [facility] Address [address] [facility] [place] [address] Phone [phone] Care Team Providers Care Marketing Reporting Analyst Name Role Phone Lolis Tam DO Primary Care Provider +1- [phone] Reason for Visit * Reason Onset Date Comments Advice 05/20/2024 Encounter Details Date Type Department Care Team (Late st Contact Info) Description 05/20/2024 [facility] [address] [facility] [place] [address] Lolis Tam DO [address] [facility] [place] [address] Advice Allergies Active Allergy Reactions Criticality [...] morning. 30 Tablet 05/02/20 24 Active Umeclidinium [place] 62.5 MCG/ACT Inhalation Aerosol Powder Breath Activated [...] encounter Miscellaneous Notes * Addendum Note - Usama Patrick PA-C [...] AM EST Attempted to contact pt EC. Libertarian not accepting calls at this time, will continue to try to contact. * Telephone Encounter - Usama Patrick PA-C - 05/20/2024 9:32 AM EST Reviewed in detail. She was recently admitted to [facility] for complicated UTI. Please inquire ifpedro is currently on antibiotic therapy. Could consider initiation of therapy until she is seen in office on Wednesday and can have urine completed. * Telephone Encounter - Tanja Tsai LPN - 05/20/2024 9:23 AM EST Looks like PT/OT/nursing as well as palliative care referrals placed, bedridden[facility] please advise * Telephone Encounter - [...] Description 05/22/2024 1:40 PM EST [facility] [address] [place] [address] Lolis Tam DO [address] [place] [address] 09/11/2024 1:00 PM EDT [facility] [address] [place] [address] Lolis Tam, [address] [place] [address] Scheduled Procedures Name Priority Associated Diagnoses Date/Ti [...] *SPIROMETRY ONCE FOR ASTHMA-ADULT 04/09/2022 COVID-19 Vaccine (2023- season) 2024 03/26/2021, 06/15/2020, 05/25/2020 Influenza Vaccine [...] Directives occurred with: Patient Care Teams Marketing Reporting Analyst Relationship Specialty Start Date End Date Lolis Tam DO [address] [facility] [place] [address] PCP - General Family Medicine 08/13/21 documented as of this encounter
--- OUTSIDE RECORDS SUMMARY | 2024-06-15 23:38 | External Medical Summary | Summary of Care ---
Author Name Unknown Organization [facility] Address [address] [facility] [place] [address] Phone [phone] Care Team Providers Care Drug And Alcohol Counsellor Name Role Phone Lolis Tam DO Primary Care Provider +1- [phone] Reason for Visit * Reason Onset Date Comments Advice 05/20/2024 Encounter Details Date Type Department Care Team (Late st Contact Info) Description 05/20/2024 [facility] [facility] [place] [address] Lolis Tam DO [address] [facility] [address] Advice Allergies Active Allergy [...] morning. 30 Tablet 05/02/20 24 Active Umeclidinium [place] 62.5 MCG/ACT Inhalation Aerosol Powder Breath Activated [...] AM EST Attempted to contact pt EC. Republican not accepting calls at this time, will continue to try to contact. * Telephone Encounter - Usama Patrick PA-C - 05/20/2024 9:32 AM EST Reviewed in detail. She was recently admitted to [facility] for complicated UTI. Please inquire ifpedro is currently on antibiotic therapy. Could consider initiation of therapy until she is seen in office on Wednesday and can have urine completed. * Telephone Encounter - Tanja Tsai LPN - 05/20/2024 9:23 AM EST Looks like PT/OT/nursing as well as palliative care referrals placed, bedridden[facility] please advise * Telephone Encounter - [...] Description 05/22/2024 1:40 PM EST [facility] [address] [place] [address] Lolis Tam DO [address] [place] [address] 09/11/2024 1:00 PM EDT [facility] [address] [place] [address] Lolis Tam, [address] [place] [address] Scheduled Procedures Name Priority Associated Diagnoses Date/Ti [...] Advance Directives occurred with: Patient Care Teams Drug And Alcohol Counsellor Relationship Specialty Start Date End Date Lolis Tam DO [address] [facility] [place] [address] PCP - General Family Medicine 08/13/21 documented as of this encounter
--- OUTSIDE RECORDS SUMMARY | 2024-06-15 23:38 | External Medical Summary | Summary of Care ---
Author Name Unknown Organization [facility] Address [address] [address] Phone [phone] Care Team Providers Care Photographic Process Worker Name Role Phone Lolis Tam DO Primary Care Provider +1- [phone] Reason for Visit * Reason Onset Date Comments Advice 05/23/2024 Encounter Details Date Type Department Care Team (Late st Contact Info) Description 05/23/2024 [facility] [address] [place] [address] Lolis Tam DO [address] [facility] [address] Advice Allergies Active Allergy Reactions [...] morning. 30 Tablet 05/02/20 24 Active Umeclidinium [place] 62.5 MCG/ACT Inhalation Aerosol Powder Breath Activated [...] before bedtime. X 7 days Ordered from [facility] ER on 05/22. Active documented as [...] encounter Miscellaneous Notes * Telephone Encounter - Sharee Hopson CCMA - 05/23/2024 1:43 PM EST Called , the number for complaints is [phone] ([place]). * Telephone Encounter - Lolis Tam DO - 05/23/2024 12:55 PM EST Please call [facility] And obtain a number I can call to place a complaint regarding patient care and follow up * Telephone Encounter - Martha Pollack LPN - 05/23/2024 8:51 AM EST ED Follow Up STABBER Documentation Did patient call the office before going to ER: Yes When was patient seen: 05/22 Which ED: [facility] What were they seen for: UTI What [...] going to send in a new antibiotic [facility] and daughter does not know what it is or if stopped bactrim. Was patient scheduled for a follow up appointment: Yes, date 05/25/2024 I contacted [facility] medical records to get ER records from 05/22 and they will not fax info to office until patient signs a records of release form. Please have patient sign form atapt on 05/25. I contacted [facility] and patient was prescribed Keflex 500 MG 1 tab BID x 7 days. Please advice if should stop Bactrim DS and start Keflex? Contact daughter Anita * Telephone Encounter - Hanh Kessler OSA - 05/23/2024 8:38 AM EST Patients daughter called in to let PCP know that Patient was in [facility] ER 05/22/24 for UTI. ER states they want patient on something other than Bactrim. Anita wants to also discuss the patients catheter being changed because it hasn't been changed since she was admitted to [facility] a few weeks ago. Patient is scheduled [...] like to discuss with someone while waiting director non profit back from PCP, or the 05/25/24 appt. Caller was transferred to [facility] at the nurse line. documented in this encounter Plan of Treatment Upcoming Encounters Date Type Department Care Team (Late st Contact Info) Description 05/25/2024 1:40 PM EST Office Visit [facility] [place] [facility] [address] [place] [address] Lolis Tam, [address] [place] [address] 09/11/2024 1:00 PM EDT [facility] [address], [place] [address] [place] [address] Lolis Tam, [address] [place] [address] Scheduled Procedures Name Priority Associated Diagnoses Date/Ti [...] Advance Directives occurred with: Patient Care Teams Photographic Process Worker Relationship Specialty Start Date End Date Lolis Tam DO [address] [facility] [place] [address] PCP - General Family Medicine 08/13/21 documented as of this encounter
--- OUTSIDE RECORDS SUMMARY | 2024-06-15 23:39 | External Medical Summary | Summary of Care ---
Author Name Unknown Organization [facility] Address [address] [place] [address] Phone [phone] Care Team Providers Care Recording Clerk Name Role Phone Lolis Tam DO Primary Care Provider +1- [phone] Reason for Referral * Evaluate & Treat - Unlimited Visits (Within 10 days (routine)) - Pending Review Specialty Diagnoses / Procedures Referred By Nito nelson Referred To Contact Occupational Medicine / Occupational Therapy Diagnoses Bedridden Lolis Tam DO [address] [place] [address] Phone: tel: fax: Referral ID Status Reason Start Date Expiration Date Visits Requested Visits Authorized [id number] Pending Review Specialty Services Required 05/18/[id number] Question Answer Referral Priority Within 10 days (routine) Where should this appointment be scheduled? External * Evaluate & Treat - Unlimited Visits (Within 10 days (routine)) - Pending Review Specialty Diagnoses / Procedures Referred By Nito nelson Referred To Contact Physical Therapy / Physical Medicine And Rehab Diagnoses Lolis Wei DO [address] [place] [address] Phone: tel: fax: Referral ID Status Reason Start Date Expiration Date Visits Requested Visits Authorized [id number] Pending Review Specialty Services Required 05/18/[phone] Question Answer Referral Priority Within 10 days (routine) Where should this appointment be scheduled? External Reason for Visit * Reason Onset Date Comments Advice 05/18/2024 Encounter Details Date Type Department Care Team (Late st Contact Info) Description 05/18/2024 Telephone Family Practice [place] Gallegos [address] [place] [address] Lolis Tam DO [address] [place] [address] Advice Allergies Active Allergy Reactions Criticality [...] as of this encounter (statuses as of 05/18/2024) Medications acetaminophen (TYLENOL) 325 MG Tablet Take [...] the morning. 30 Tablet 05/02/20 Active Umeclidinium [place] 62.5 MCG/ACT Inhalation Aerosol Powder Breath Activated (INCRUSE ellipta) Inhale 1 Puff by mouth in the morning. 30 Each 05/02/20 24 Active DULoxetine HCl 30 MG Oral Capsule Delayed Release Particles (Cymbalta)Indicati ons:Peripheral polyneuropathy Take 1 Capsule by mouth in the morning. Do not cut, crush or chew. 30 Capsule 2 05/05/20 Active levoFLOXacin 750 MG Oral Tablet (Levaquin) Take 1 Tablet by mouth in the morning. 05/11/20 24 025 Active documented as of this encounter (statuses as of 05/18/2024) Active Problems Problem Noted Date Diagnosed Date [...] as of this encounter (statuses as of 05/18/2024) Resolved Problems Problem Noted Date Diagnosed Date Resolved Date COVID-19 02/04/2022 05/05/2024 Chest pain 01/08/2022 05/05/2024 Lower leg DVT (deep venous t hromboembolism), acute, left 06/18/2021 05/05/2024 documented as of this encounter (statuses as of 05/18/2024) Social History Tobacco Use Types Packs/Day Years [...] Telephone Encounter - Rhiannon Acosta OSA - 05/18/2024 3:59 PM EST PT and OT orders faxed to [facility] Home Nursing. * Telephone Encounter - Lolis Tam DO - 05/18/2024 3:57 PM EST Will need to contact home nursing agency and fax orders * Telephone Encounter - Sharee Hopson CCMA - 05/18/2024 3:40 PM EST Please advise on pt message, pt and ot referral pended. * Telephone Encounter - Artur Olivas OSA - 05/18/2024 8:36 AM EST Patient's daughter calling in stating that the patient has not been set up with speech, occupational and physical therapy at home yet. She stated that she had been seen by a home health nurse, but she is unsure if she is coming back. She also stated that she was advised while at [facility] she would be set up with an aide to help with baths 2 days a week through [facility] which has not happened. Please advise. documented in this encounter Plan of Treatment Upcoming Encounters Date Type Department Care Team (Late st Contact Info) Description 05/22/2024 1:40 PM EST [facility] [address] [facility] [place] [place] [address] Lolis Tam, [address] [place] [address] 09/11/2024 1:00 PM EDT Office Visit [facility] [address] [place] [address] Lolis Tam, [address] [place] [place] [address] Scheduled Procedures Name Priority Associated Diagnoses Date/Ti me ENDOSCOPIC RETROGRADE CHOLANGIOPANCREATOGRAPHY (ERCP) DIAGNOSTIC Recall Choledocholithiasis Scheduled Referrals Name Type Priority Associated Diagnoses Order Schedule PHYSICAL THERAPY REFERRAL OP Referral Within 10 days (routine) Bedridden Ordered: 05/18/2024 OCCUPATIONAL THERAPY REFERRAL OP Referral Within 10 days (routine) Bedridden Ordered: 05/18/2024 Health Maintenance Due Date Last Done Comments [...] as of this encounter Visit Diagnoses Diagnosis Bedridden- Primary Bed confinement status documented in this encounter Advance Directives * Full Code (Latest Code Status on File) Date Activated Date Inactivated Comments 01/08/2022 6:10 PM 02/24/2022 6:34 PM This order reflects the patients wishes and were consensually agreed upon. Question Answer Comments Discussion of Advance Directives occurred with: Patient Care Teams Recording Clerk Relationship Specialty Start Date End Date Lolis Tam DO [address] [facility] [place] [address] PCP - General Family Medicine 08/13/21 documented as of this encounter
--- OUTSIDE RECORDS SUMMARY | 2024-06-15 23:39 | External Medical Summary | Summary of Care ---
Author Name Unknown Organization [facility] Address [address] [address] Phone [phone] Care Team Providers Care Wine Specialist Name Role Phone Lolis Tam DO Primary Care Provider +1- [phone] Reason for Visit * Reason Onset Date Comments Advice 05/20/2024 Encounter Details Date Type Department Care Team (Late st Contact Info) Description 05/20/[facility]24 [facility] [address] [facility] [place] [address] Lolis Tam DO [address] [facility] [address] Advice Allergies Active Allergy [...] morning. 30 Tablet 05/02/20 24 Active Umeclidinium [place] 62.5 MCG/ACT Inhalation Aerosol Powder Breath Activated [...] in detail. She was recently admitted to [facility] for complicated UTI. Please inquire ifpedro is currently on antibiotic therapy. Could consider initiation of therapy until she is seen in office on Wednesday and can have urine completed. * Telephone Encounter - Tanja Tsai LPN - 05/20/2024 9:23 AM EST Looks like PT/OT/nursing as well as palliative care referrals placed, bedridden[facility] please advise * Telephone Encounter [...] 1:40 PM EST [facility] [address] [address] [place] [address] Lolis Tam DO [address] [place] [address] 09/11/2024 1:00 PM EDT [facility] [address] [address] [place] [address] Lolis Tam, [address] [place] [address] Scheduled Procedures Name Priority Associated Diagnoses Date/Ti [...] Advance Directives occurred with: Patient Care Teams Wine Specialist Relationship Specialty Start Date End Date Lolis Tam DO [address] [facility] [place] [address] PCP - General Family Medicine 08/13/21 documented as of this encounter
--- OUTSIDE RECORDS SUMMARY | 2024-06-15 23:39 | External Medical Summary | Summary of Care ---
Author Name Unknown Organization [facility] Address [address] [place] [address] Phone [phone] Care Team Providers Care Tax Assistant Name Role Phone Lolis Tam DO Primary Care Provider +1- [phone] Reason for Referral * Evaluate & Treat - Unlimited Visits (Within 10 days (routine)) - Pending Review Specialty Diagnoses / Procedures Referred By Nito nelson Referred To Contact Occupational Medicine / Occupational Therapy Diagnoses Bedridden Lolis Tam DO [address] [place] [address] Phone: tel: fax: Referral ID Status Reason Start Date Expiration Date Visits Requested Visits Authorized [id number] Pending Review Specialty Services Required 05/18/[phone] Question Answer Referral Priority Within 10 days (routine) Where should this appointment be scheduled? External * Evaluate & Treat - Unlimited Visits (Within 10 days (routine)) - Pending Review Specialty Diagnoses / Procedures Referred By Nito nelson Referred To Contact Physical Therapy / Physical Medicine And Rehab Diagnoses Lolis Wei DO [address] [place] [address] Phone: tel: fax: Referral ID Status Reason Start Date Expiration Date Visits Requested Visits Authorized [id number] Pending Review Specialty Services Required 05/18/2024 999 999 Question Answer Referral Priority Within 10 days (routine) Where should this appointment be scheduled? External Reason for Visit * Reason Onset Date Comments Advice 05/18/2024 Encounter Details Date Type Department Care Team (Late st Contact Info) Description 05/18/2024 Telephone Family Practice [place] Gallegos [address] [place] [address] Lolis Tam DO [address] [place] [address] Advice Allergies Active Allergy [...] the morning. 30 Tablet 05/02/20 Active Umeclidinium [place] 62.5 MCG/ACT Inhalation Aerosol Powder Breath Activated [...] Telephone Encounter - Tanja Tsai LPN - 05/18/2024 4:27 PM EST Spoke with [facility] home health, they do still have her active for visits with nursing and will get herset up with the referrals * Telephone Encounter - Rhiannon Acosta OSA - 05/18/2024 3:59 PM EST PT and OT orders faxed to [facility] Home Nursing. * Telephone Encounter - Lolis [...] stated that she was advised while at [facility] she would be set up with an aide to help with baths 2 days a week through [facility] which has not happened. Please advise. documented in this encounter Plan of Treatment Upcoming Encounters Date Type Department Care Team (Late st Contact Info) Description 05/22/2024 1:40 PM EST [facility] [address] [facility] [place] [address] Lolis Tam DO [address] [place] [address] 09/11/2024 1:00 PM EDT Office Visit [facility] [address], [place] [address] [place] [address] Lolis Tam, [address] [place] [address] Scheduled Procedures Name Priority Associated Diagnoses Date/Ti ct ENDOSCOPIC RETROGRADE CHOLANGIOPANCREATOGRAPHY (ERCP) DIAGNOSTIC Recall Choledocholithiasis [...] Advance Directives occurred with: Patient Care Teams Tax Assistant Relationship Specialty Start Date End Date Lolis Tam DO [address] [facility] [place] [address] PCP - General Family Medicine 08/13/21 documented as of this encounter
--- OUTSIDE RECORDS SUMMARY | 2024-06-15 23:39 | External Medical Summary | Summary of Care ---
Author Name Unknown Organization [facility] Address [address] [place] [address] Phone [phone] Care Team Providers Care Manufactured Buildings Repairer Name Role Phone Lolis Tam DO Primary Care Provider +1- [phone] Reason for Referral * Evaluate & Treat - Unlimited Visits (Within 10 days (routine)) - Pending Review Specialty Diagnoses / Procedures Referred By Nito nelson Referred To Contact HOME CARE / Home Care Diagnoses Bedridden Lolis Tam DO [address] [place] [address] Phone: tel: fax: Referral ID Status Reason Start Date Expiration Date Visits Requested Visits Authorized [id number] Pending Review Specialty Services Required 05/19/[phone] Question Answer Referral Priority Within 10 days (routine) Where should this appointment be scheduled? [facility] * Evaluate & Treat - Unlimited Visits (Within 10 days (routine)) - Pending Review Specialty Diagnoses / Procedures Referred By Nito nelson Referred To Contact Occupational Medicine / Occupational Therapy Diagnoses Lolis Wei DO [address] [place] [address] Phone: tel: fax: Referral ID Status Reason Start Date Expiration Date Visits Requested Visits Authorized [id number] Pending Review Specialty Services Required 05/18/[phone] Question Answer Referral Priority Within 10 days (routine) Where should this appointment be scheduled? External * Evaluate & Treat - Unlimited Visits (Within 10 days (routine)) - Pending Review Specialty Diagnoses / Procedures Referred By Nito nelson Referred To Contact Physical Therapy / Physical Medicine And Rehab Diagnoses Bedridden Lolis Tam DO [address] [place] [address] Phone: tel: fax: Referral ID Status Reason Start Date Expiration Date Visits Requested Visits Authorized [id number] Pending Review Specialty Services Required 05/18/2024 999 999 Question Answer Referral Priority Within 10 days (routine) Where should this appointment be scheduled? External Reason for Visit * Reason Onset Date Comments Advice 05/18/2024 Encounter Details Date Type Department Care Team (Late st Contact Info) Description 05/18/2024 [facility] [address] [place] [address] Lolis Tam DO [address] [place] [place] [address] Advice Allergies Active Allergy Reactions Criticality Noted [...] as of this encounter (statuses as of 05/19/2024) Medications acetaminophen (TYLENOL) 325 MG Tablet Take [...] the morning. 30 Tablet 05/02/20 Active Umeclidinium [place] 62.5 MCG/ACT Inhalation Aerosol Powder Breath Activated [...] mouth in the morning. 05/11/20 24 025 documented as of this encounter (statuses as of 05/19/2024) Active Problems Problem Noted Date Diagnosed Date [...] as of this encounter (statuses as of 05/19/2024) Resolved Problems Problem Noted Date Diagnosed Date Resolved Date COVID-19 02/04/2022 05/05/2024 Chest pain 01/08/2022 05/05/2024 Lower leg DVT (deep venous t hromboembolism), acute, left 06/18/2021 05/05/2024 documented as of this encounter (statuses as of 05/19/2024) Social History Tobacco Use Types Packs/Day Years [...] Telephone Encounter - Rhiannon Acosta OSA - 05/19/2024 1:13 PM EST Referral faxed to [facility] Nursing as requested. * Addendum Note - Tanja Yan LPN - 05/19/2024 12:28 PM ESTAddended by: TANJA YAN on: 05/19/2024 12:28 PM Modules accepted: Orders * Telephone Encounter - Tanja Yan LPN - 05/19/2024 12:28 PM EST Please assist with faxing * Telephone Encounter - Lynette Reyes LPN - 05/19/2024 10:04 AM EST TR, Clinical Sweatband Perforator calling from [facility] He stated that they have the referral for PT, OT and nursing but he does need an order for Home Health Aid. Please place order and fax: [facility] * Telephone Encounter - Tanja Yan LPN - 05/18/2024 4:27 PM EST Spoke with [facility] home health, they do still have her active for visits with nursing and will get herset up with the referrals * Telephone Encounter - Rhiannon Acosta OSA - 05/18/2024 3:59 PM EST PT and OT orders faxed to [facility] Home Nursing. * Telephone Encounter - [...] stated that she was advised while at [facility] she would be set up with an aide to help with baths 2 days a week through [facility] which has not happened. Please advise. documented in this encounter Plan of Treatment Upcoming Encounters Date Type Department Care Team (Late st Contact Info) Description 05/22/2024 1:40 PM EST [facility] [address] [facility] [place] [address] Lolis Tam, [address] [facility] [place] [address] 09/11/2024 1:00 PM EDT Office Visit [facility] [place] [address] [facility] [place] [address] Lolis Tam, [address] [facility] [place] [address] Scheduled Procedures Name Priority Associated Diagnoses Date/Ti me ENDOSCOPIC RETROGRADE CHOLANGIOPANCREATOGRAPHY (ERCP) DIAGNOSTIC Recall Choledocholithiasis Scheduled Referrals Name Type Priority Associated Diagnoses Order Schedule PHYSICAL THERAPY REFERRAL OP Referral Within 10 days (routine) Bedridden Ordered: 05/18/2024 OCCUPATIONAL THERAPY REFERRAL OP Referral Within 10 days (routine) Bedridden Ordered: 05/18/2024 HOME HEALTH REFERRAL OP Referral Within 10 days (routine) Bedridden Ordered: 05/19/2024 Health Maintenance Due Date Last Done Comments DXA Scan 1942 Depression Screening 1954 Albumin/Creatinine Ratio 1960 Alpha-1 Antitrypsin 1960 Diabetic Eye Exam 1960 Diabetic Foot Exam 1960 DTap/Tdap Vaccines (1 - Tdap) 1961 Zoster Vaccines (1 of 2) 1961 Adult Wellness Visit 2008 *COPD SEVERITY VERIFIED BY PFT 08/02/2021 HbA1c 04/04/2022 10/02/2021, 06/20/2021 *SPIROMETRY ONCE FOR ASTHMA-ADULT 04/09/2022 COVID-19 Vaccine (4 - season) 2024 03/26/2021, 06/15/2020, 05/25/2020 Influenza [...] Advance Directives occurred with: Patient Care Teams Manufactured Buildings Repairer Relationship Specialty Start Date End Date Lolis Tam DO [address] [facility] [place] [address] PCP - General Family Medicine 08/13/21 documented as of this encounter
--- OUTSIDE RECORDS SUMMARY | 2024-06-15 23:39 | External Medical Summary | Summary of Care ---
Author Name Unknown Organization [facility] Address [address] [place] [address] Phone [phone] Care Team Providers Care Vp Client Services Name Role Phone Lolis Tam DO Primary Care Provider +1- [phone] Reason for Referral * Evaluate & Treat - Unlimited Visits (Within 10 days (routine)) - Pending Review Specialty Diagnoses / Procedures Referred By Nito nelson Referred To Contact Occupational Medicine / Occupational Therapy Diagnoses [place] Lolis Tam DO [address] [place] [address] Phone: tel: fax: Referral ID Status Reason Start Date Expiration Date Visits Requested Visits Authorized [id number] Pending Review Specialty Services Required 05/18/[phone] Question Answer Referral Priority Within 10 days (routine) Where should this appointment be scheduled? External * Evaluate & Treat - Unlimited Visits (Within 10 days (routine)) - Pending Review Specialty Diagnoses / Procedures Referred By Nito nelson Referred To Contact Physical Therapy / Physical Medicine And Rehab Diagnoses Lolis Wei DO [address] [place] [address] Phone: tel: fax: Referral ID Status Reason Start Date Expiration Date Visits Requested Visits Authorized [id number] Pending Review Specialty Services Required 05/18/[phone] Question Answer Referral Priority Within 10 days (routine) Where should this appointment be scheduled? External Reason for Visit * Reason Onset Date Comments Advice 05/18/2024 Encounter Details Date Type Department Care Team (Late st Contact Info) Description 05/18/2024 Telephone Family Practice [place] [address] [place] [address] Lolis Tam DO [address] [place] [address] Advice Allergies Active Allergy [...] the morning. 30 Tablet 05/02/20 Active Umeclidinium [place] 62.5 MCG/ACT Inhalation Aerosol Powder Breath Activated [...] - 05/19/2024 10:04 AM EST TR, Clinical Supervisor Travel Information Center calling from [facility] He stated that they have the referral for PT, OT and nursing but he does need an order for Home Health Aid. Please place order and fax: [facility] Home Health * Telephone Encounter - Tanja Tsai LPN - 05/18/2024 4:27 PM EST Spoke with [facility] home health, they do still have her active for visits with nursing and will get herset up with the referrals * Telephone Encounter - Rhiannon Acosta OSA - 05/18/2024 3:59 PM EST PT and OT orders faxed to [facility] Home Nursing. * Telephone Encounter - [...] stated that she was advised while at [facility] she would be set up with an aide to help with baths 2 days a week through [facility] which has not happened. Please advise. documented in this encounter Plan of Treatment Upcoming Encounters Date Type Department Care Team (Late st Contact Info) Description 05/22/2024 1:40 PM EST Office Visit [facility] [address], [place] [address] [place] [address] Lolis Tam DO [address] [place] [address] 09/11/2024 1:00 PM EDT Office Visit [facility] [address] [place] [address] [place], [place] [address] Lolis Tam DO [address] [place] [address] Scheduled Procedures Name Priority Associated Diagnoses Date/Ti [...] Advance Directives occurred with: Patient Care Teams Vp Client Services Relationship Specialty Start Date End Date Lolis Tam DO [address] [facility] [place] [address] PCP - General Family Medicine 08/13/21 documented as of this encounter
--- OUTSIDE RECORDS SUMMARY | 2024-06-15 23:39 | External Medical Summary | Summary of Care ---
Author Name Unknown Organization [facility] Address [address] [facility] [place] [address] Phone [phone] Care Team Providers Care Quality Control Head Name Role Phone Lolis Tam DO Primary Care Provider +1- [phone] Reason for Visit * Reason Onset Date Comments Encounter Created in Error 05/19/2024 Encounter Details Date Type Department Care Team (Late st Contact Info) Description 05/19/2024 [facility] [address] [facility] [place] [address] Lolis Tam DO [address] [facility], [place] [address] Encounter Created in Error Allergies Active Allergy Reactions Criticality Noted Date [...] the morning. 30 Tablet 05/02/20 Active Umeclidinium [place] 62.5 MCG/ACT Inhalation Aerosol Powder Breath Activated (INCRUSE ellipta) Inhale 1 Puff by mouth in the morning. 30 Each 05/02/20 Active DULoxetine HCl 30 MG Oral Capsule Delayed Release Particles (Cymbalta)Indicati ons:Peripheral polyneuropathy Take 1 Capsule by mouth in the morning. Do not cut, crush or chew. 30 Capsule 2 05/05/20 Active documented as of this encounter (statuses [...] 01/08/2022 6:38 PM EDSy Hoyos RN * Do you have difficulty dressing [...] Description 05/22/2024 1:40 PM EST [facility] [address] [facility] [place] [address] Lolis Tam, [address] [place] [address] 09/11/2024 1:00 PM EDT Office Visit [facility] [place] Gallegos [address] [place] [address] Lolis Tam, [address] [place] [address] Scheduled Procedures Name Priority Associated Diagnoses Date/Ti [...] Advance Directives occurred with: Patient Care Teams Quality Control Head Relationship Specialty Start Date End Date Tam, Lolis Ryann, DO [address] [facility] [place] [address] PCP - General Family Medicine 08/13/21 documented as of this encounter
--- OUTSIDE RECORDS SUMMARY | 2024-06-15 23:39 | External Medical Summary | Summary of Care ---
Author Name Unknown Organization [facility] Address [address] [place] [address] Phone [phone] Care Team Providers Care Meat And Seafood Manager Name Role Phone Lolis Tam DO Primary Care Provider +1- [phone] Reason for Referral * Evaluate & Treat - Unlimited Visits (Within 10 days (routine)) - Pending Review Specialty Diagnoses / Procedures Referred By Nito nelson Referred To Contact HOME CARE / Home Care Diagnoses Bedridden Lolis Tam DO [address] [place] [address] Phone: tel: fax: Referral ID Status Reason Start Date Expiration Date Visits Requested Visits Authorized [id number] Pending Review Specialty Services Required 05/19/2024 [id number] Question Answer Referral Priority Within 10 days (routine) Where should this appointment be scheduled? [facility] * Evaluate & Treat - Unlimited Visits (Within 10 days (routine)) - Pending Review Specialty Diagnoses / Procedures Referred By Nito nelson Referred To Contact Occupational Medicine / Occupational Therapy Diagnoses Lolis Wei DO [address] [place] [address] Phone: tel: fax: Referral ID Status Reason Start Date Expiration Date Visits Requested Visits Authorized [id number] Pending Review Specialty Services Required 05/18/2024 [id number] Question Answer Referral Priority Within 10 days (routine) Where should this appointment be scheduled? External * Evaluate & Treat - Unlimited Visits (Within 10 days (routine)) - Pending Review Specialty Diagnoses / Procedures Referred By Nito nelson Referred To Contact Physical Therapy / Physical Medicine And Rehab Diagnoses Bedridden Lolis Tam DO [address] [place] [address] Phone: tel: fax: Referral ID Status Reason Start Date Expiration Date Visits Requested Visits Authorized [id number] Pending Review Specialty Services Required 05/18/2024 [id number] Question Answer Referral Priority Within 10 days (routine) Where should this appointment be scheduled? External Reason for Visit * Reason Onset Date Comments Advice 05/18/2024 Encounter Details Date Type Department Care Team (Late st Contact Info) Description 05/18/2024 Telephone Family Practice [address] [place] [address] Lolis Tam DO [address] [place] [address] Advice Allergies Active Allergy Reactions Criticality Noted [...] the morning. 30 Tablet 05/02/20 Active Umeclidinium [place] 62.5 MCG/ACT Inhalation Aerosol Powder Breath Activated [...] encounter Miscellaneous Notes * Addendum Note - Tanja Yan LPN - 05/19/2024 12:28 PM ESTAddended by: TANJA YAN on: 05/19/2024 12:28 PM Modules accepted: Orders * Telephone Encounter - Tanja Yan LPN - 05/19/2024 12:28 PM EST Please assist with faxing * Telephone Encounter - Lynette Reyes LPN - 05/19/2024 10:04 AM EST TR, Clinical Office Coordinator calling from [facility] He stated that they have the referral for PT, OT and nursing but he does need an order for Home Health Aid. Please place order and fax: [facility] Home Health * Telephone Encounter - Tanja Yan LPN - 05/18/2024 4:27 PM EST Spoke with [facility] home health, they do still have [...] stated that she was advised while at [facility] she would be set up with an aide to help with baths 2 days a week through [facility] which has not happened. Please advise. documented in this encounter Plan of Treatment Upcoming Encounters Date Type Department Care Team (Late st Contact Info) Description 05/22/2024 1:40 PM EST Office Visit [facility], [place] [address] [place] [address] Lolis Tam DO [address] [place] [address] 09/11/2024 1:00 PM EDT Office Visit [facility] [address], [place] [address] [place] [address] Lolis Tam DO [address] [place] [address] Scheduled Procedures Name Priority Associated Diagnoses Date/Ti [...] Advance Directives occurred with: Patient Care Teams Meat And Seafood Manager Relationship Specialty Start Date End Date Lolis Tam DO [address] [facility] [place] [address] PCP - General Family Medicine 08/13/21 documented as of this encounter
--- OUTSIDE RECORDS SUMMARY | 2024-06-15 23:39 | External Medical Summary | Summary of Care ---
Author Name Unknown Organization [facility] Address [address] [place] [address] Phone [phone] Care Team Providers Care Managing Consultant Name Role Phone Lolis Tam DO Primary Care Provider +1- [phone] Reason for Referral * Evaluate & Treat - Unlimited Visits (Within 30 days (routine)) - Pending Review Specialty Diagnoses / Procedures Referred By Nito nelson Referred To Contact Podiatry Diagnoses Hemiplegia, post-stroke (HCC) Unable to care for self Peripheral polyneuropathy Lolis Tam DO [address] [place] [address] Phone: tel: fax: Referral ID Status Reason Start Date Expiration Date Visits Requested Visits Authorized [id number] Pending Review Specialty Services Required 4 [phone] Question Answer Referral Priority Within 30 days (routine) Where should this appointment be scheduled? External - [facility] Which condition are you referring this patient for? Routine Foot Care Medicare Patient? Yes Can Patient perform routine footcare without assistance? No Does patient have a chronic condition? Yes Has patient been seen in the past 6 months? Yes Date last seen for chronic condition: 05/05/2024 Who saw patient for chronic condition? Dr Tam Reason for Visit * Reason Onset Date Comments Referral 05/12/2024 Podiatry Encounter Details Date Type Department Care Team ([facility] st Contact Info) Description 05/12/2024 Telephone [facility] Practice [address] [place] [address] Lolis Tam, [address] [facility] [place] [address] Referral (Podiatry) Allergies Active Allergy Reactions Criticality Noted Date [...] as of this encounter (statuses as of 05/15/2024) Medications acetaminophen (TYLENOL) 325 MG Tablet Take [...] the morning. 30 Tablet 05/02/20 Active Umeclidinium [place] 62.5 MCG/ACT Inhalation Aerosol Powder Breath Activated (INCRUSE ellipta) Inhale 1 Puff by mouth in the morning. 30 Each 05/02/20 24 Active DULoxetine HCl 30 MG Oral Capsule Delayed Release Particles (Cymbalta)Indicati ons:Peripheral polyneuropathy Take 1 Capsule by mouth in the morning. Do not cut, crush or chew. 30 Capsule 2 05/05/20 24 Active levoFLOXacin 750 MG Oral Tablet (Levaquin) Take 1 Tablet by mouth in the morning. 05/11/20 24 025 Active documented as of this encounter (statuses as of 05/15/2024) Active Problems Problem Noted Date Diagnosed Date [...] as of this encounter (statuses as of 05/15/2024) Resolved Problems Problem Noted Date Diagnosed Date Resolved Date COVID-19 02/04/2022 05/05/2024 Chest pain 01/08/2022 05/05/2024 Lower leg DVT (deep venous t hromboembolism), acute, left 06/18/2021 05/05/2024 documented as of this encounter (statuses as of 05/15/2024) Social History Tobacco Use Types Packs/Day Years [...] Telephone Encounter - Rhiannon Acosta OSA - 05/15/2024 11:25 AM EST Podiatry referral/info faxed to [facility]. They will contact pt directly with appt in [place] office. * Telephone Encounter - Awilda Mckenzie RN - 05/12/2024 1:55 PM EST Daughter would like her mom to see Podiatry for routine foot care. She would like to use [facility]. Please help her set up an appt. Provider to address: NA Reason for Call: No chief complaint on file. Contact: Telephone Call Contact Type: Referral(s) Placed Provider In-Basket: Yes Outcome: podiatry referral placed Face to face time spent with Patient (minutes): 0 Total Time including non face to face (minutes): 10 documented in this encounter Plan of Treatment Upcoming Encounters Date Type Department Care Team (Late st Contact Info) Description 05/22/2024 1:40 PM EST [facility] [address] [place] [address] Lolis Tam DO [address] [place] [address] 09/11/2024 1:00 PM EDT Office Visit [facility] [place] [address] [place] [address] Lolis Tam, DO [address] [place] [address] Scheduled Procedures Name Priority Associated Diagnoses Date/Ti me ENDOSCOPIC RETROGRADE CHOLANGIOPANCREATOGRAPHY (ERCP) DIAGNOSTIC Recall Choledocholithiasis Scheduled Referrals Name Type Priority Associated Diagnoses Orde r Schedule PODIATRY REFERRAL OP Referral Within 30 days (routine) Hemiplegia, post-stroke (HCC) Unable to care for self Peripheral polyneuropathy Ordered: 05/12/2024 Health Maintenance Due Date Last Done Comments [...] unspecified side, late effect of cerebrovascular disease Unable to care for self Peripheral polyneuropathy Unspecified hereditary and idiopathic peripheral neuropathy documented in this encounter Advance Directives * Full Code (Latest Code Status on File) Date Activated Date Inactivated Comments 01/08/2022 6:10 PM 02/24/2022 6:34 PM This order reflects the patients wishes and were consensually agreed upon. Question Answer Comments Discussion of Advance Directives occurred with: Patient Care Teams Managing Consultant Relationship Specialty Start Date End Date Lolis Tam DO [address] [facility] [place] [id number] PCP - General Family Medicine 08/13/21 documented as of this encounter
--- OUTSIDE RECORDS SUMMARY | 2024-06-15 23:39 | External Medical Summary | Summary of Care ---
Author Name Unknown Organization [facility] Address [address] [place] [address] Phone [phone] Care Team Providers Care Elastic Attacher Chainstitch Name Role Phone Lolis Tam DO Primary Care Provider +1- [phone] Reason for Referral * Evaluate & Treat - Unlimited Visits (Within 10 days (routine)) - Pending Review Specialty Diagnoses / Procedures Referred By Nito nelson Referred To Contact Occupational Medicine / Occupational Therapy Diagnoses Bedridden Lolis Tam DO [address] [place] [address] Phone: tel: fax: Referral ID Status Reason Start Date Expiration Date Visits Requested Visits Authorized [id number] Pending Review Specialty Services Required 05/18/[phone] Question Answer Referral Priority Within 10 days (routine) Where should this appointment be scheduled? External * Evaluate & Treat - Unlimited Visits (Within 10 days (routine)) - Pending Review Specialty Diagnoses / Procedures Referred By Nito nelson Referred To Contact Physical Therapy / Physical Medicine And Rehab Diagnoses Lolis Wei DO [address] [place] [address] Phone: tel: fax: Referral ID Status Reason Start Date Expiration Date Visits Requested Visits Authorized [id number] Pending Review Specialty Services Required 05/18/[phone] Question Answer Referral Priority Within 10 days (routine) Where should this appointment be scheduled? External Reason for Visit * Reason Onset Date Comments Advice 05/18/2024 Encounter Details Date Type Department Care Team (Late st Contact Info) Description 05/18/2024 Telephone Family Practice [place] [address] [place] [address] Lolis Tam DO [address] [place] [address] Advice Allergies Active Allergy [...] the morning. 30 Tablet 05/02/20 Active Umeclidinium [place] 62.5 MCG/ACT Inhalation Aerosol Powder Breath Activated [...] of Assessment Author Yes 01/08/2022 6:38 PM Triston Ramos RN * Because of a physical, [...] encounter Miscellaneous Notes * Telephone Encounter - Rhinanon Acosta OSA - 05/18/2024 3:59 PM EST PT and OT orders faxed to [facility] Home Nursing. * Telephone Encounter - [...] stated that she was advised while at [facility] she would be set up with an aide to help with baths 2 days a week through [facility] which has not happened. Please advise. documented in this encounter Plan of Treatment Upcoming Encounters Date Type Department Care Team (Late st Contact Info) Description 05/22/2024 1:40 PM EST Office Visit [facility] [place] [address] [place] [address] Lolis Tam, [address] [place] [address] 09/11/2024 1:00 PM EDT Office Visit [facility] [address] [place] [address] Lolis Tam, [address] [place] [address] Scheduled Procedures Name Priority Associated Diagnoses Date/Ti [...] Advance Directives occurred with: Patient Care Teams Elastic Attacher Chainstitch Relationship Specialty Start Date End Date Lolis Tam DO [address] [facility] [place] [address] PCP - General Family Medicine 08/13/21 documented as of this encounter
--- OUTSIDE RECORDS SUMMARY | 2024-06-15 23:39 | External Medical Summary | Summary of Care ---
Author Name Unknown Organization [facility] Address [address] [facility] [place] [address] Phone [phone] Care Team Providers Care Financial Institution Treasurer Name Role Phone Lolis Tam DO Primary Care Provider +1- [phone] Reason for Visit * Reason Onset Date Comments Medication Refill 05/19/2024 Encounter Details Date Type Department Care Team (Late st Contact Info) Description [facility] [place] [address] Lolis Tam DO [address] [place] [address] Allergies Active Allergy Reactions Criticality Noted [...] Former Cigarettes 0.5 20 Smokeless Tobacco: Never Comments:2014 quit Alcohol Use Standard Drinks/Week Comments No [...] encounter Miscellaneous Notes * Telephone Encounter - Jes Vazquez PHARM Tech - 05/19/2024 10:03 AM EST Pt calling to request tylenol 325. Informed pt that RX is available at their pharmacy. Pt verbalized understanding and stated they will check with their pharmacy regarding this medication. Thank you, Jes Vazquez CPhT Investigation Division Lieutenant II [facility] 05/19/2024,10:03 AM documented in this encounter Plan of Treatment Upcoming Encounters Date Type Department Care Team (Late st Contact Info) Description 05/22/2024 1:40 PM EST Office Visit [facility] [place] [address] Lolis Tam, DO [address] [place] [address] 09/11/2024 1:00 PM EDT Office Visit Family Practice [place] [address] [place] [address] Lolis Tam, DO [address] [place] [address] Scheduled Procedures Name Priority Associated Diagnoses Date/Ti [...] Advance Directives occurred with: Patient Care Teams Financial Institution Treasurer Relationship Specialty Start Date End Date Lolis Tam DO [address] [facility] [place] [address] PCP - General Family Medicine 08/13/21 documented as of this encounter
--- OUTSIDE RECORDS SUMMARY | 2024-06-15 23:39 | External Medical Summary | Summary of Care ---
Author Name Unknown Organization [facility] Address [address] [place] [address] Phone [phone] Care Team Providers Care Shank Threader Name Role Phone Lolis Tam DO Primary Care Provider +1- [phone] Reason for Referral * Evaluate & Treat - Unlimited Visits (Within 10 days (routine)) - Pending Review Specialty Diagnoses / Procedures Referred By Nito nelson Referred To Contact Occupational Medicine / Occupational Therapy Diagnoses [place] Lolis Tam DO [address] [place] [address] Phone: tel: fax: Referral ID Status Reason Start Date Expiration Date Visits Requested Visits Authorized [id number] Pending Review Specialty Services Required 05/18/[phone] Question Answer Referral Priority Within 10 days (routine) Where should this appointment be scheduled? External * Evaluate & Treat - Unlimited Visits (Within 10 days (routine)) - Pending Review Specialty Diagnoses / Procedures Referred By Nito nelson Referred To Contact Physical Therapy / Physical Medicine And Rehab Diagnoses Lolis Wei DO [address] [place] [address] Phone: tel: fax: Referral ID Status Reason Start Date Expiration Date Visits Requested Visits Authorized [id number] Pending Review Specialty Services Required 05/18/[phone] Question Answer Referral Priority Within 10 days (routine) Where should this appointment be scheduled? External Reason for Visit * Reason Onset Date Comments Advice 05/18/2024 Encounter Details Date Type Department Care Team (Late st Contact Info) Description 05/18/2024 Telephone Family Practice [place] [address] [place] [address] Lolis Tam DO [address] [place] [address] Advice Allergies Active Allergy [...] the morning. 30 Tablet 05/02/20 Active Umeclidinium [place] 62.5 MCG/ACT Inhalation Aerosol Powder Breath Activated [...] - 05/18/2024 4:27 PM EST Spoke with [facility] home health, they do still have her active for visits with nursing and will get herset up with the referrals * Telephone Encounter - Rhiannon Acosta OSA - 05/18/2024 3:59 PM EST PT and OT orders faxed to [facility] Home Nursing. * Telephone Encounter - Lolis [...] stated that she was advised while at [facility] she would be set up with an aide to help with baths 2 days a week through [facility] which has not happened. Please advise. documented in this encounter Plan of Treatment Upcoming Encounters Date Type Department Care Team (Late st Contact Info) Description 05/22/2024 1:40 PM EST Office Visit [facility] [address] [facility] [place] [address] Lolis Tam DO [address] [place] [address] 09/11/2024 1:00 PM EDT Office Visit [facility] [address], [place] [address] [place] [address] Lolis Tam DO [address] [place] [address] Scheduled Procedures Name Priority Associated Diagnoses Date/Ti pa ENDOSCOPIC RETROGRADE CHOLANGIOPANCREATOGRAPHY (ERCP) DIAGNOSTIC Recall Choledocholithiasis [...] Advance Directives occurred with: Patient Care Teams Shank Threader Relationship Specialty Start Date End Date Lolis Tam DO [address] [facility] [place] [address] PCP - General Family Medicine 08/13/21 documented as of this encounter
--- OUTSIDE RECORDS SUMMARY | 2024-06-15 23:39 | External Medical Summary | Summary of Care ---
Author Name Unknown Organization [facility] Address [address] [facility] [place] [address] Phone [phone] Care Team Providers Care Beekeeper Name Role Phone Lolis Tam DO Primary Care Provider +1- [phone] Reason for Visit * Reason Onset Date Comments Advice 05/20/2024 Encounter Details Date Type Department Care Team (Late st Contact Info) Description 05/20/2024 [facility] [place] [address] Lolis Tam DO [address] [facility] [address] Advice Allergies Active Allergy Reactions [...] the morning. 30 Tablet 05/02/20 Active Umeclidinium [place] 62.5 MCG/ACT Inhalation Aerosol Powder Breath Activated [...] to contact. * Telephone Encounter - Usama Marques PA-C - 05/20/2024 9:32 AM EST Reviewed in detail. She was recently admitted to [facility] for complicated UTI. Please inquire ifpedro is currently on antibiotic therapy. Could consider initiation of therapy until she is seen in office on Wednesday and can have urine completed. * Telephone Encounter - Tanja Tsai LPN - 05/20/2024 9:23 AM EST Looks like PT/OT/nursing as well as palliative care referrals placed, bedridden, upcoming appt withpcp 05/22, please advise * Telephone Encounter - [...] Description 05/22/2024 1:40 PM EST Office Visit [facility] [address] [place] [address] Lolis Tam DO [address] [place] [address] 09/11/2024 1:00 PM EDT Office Visit [facility] [address] [place] [place] [address] Lolis Tam DO [address] [place] [address] Scheduled Procedures Name Priority Associated Diagnoses Date/Ti [...] Advance Directives occurred with: Patient Care Teams Beekeeper Relationship Specialty Start Date End Date Lolis Tam DO [address] [facility] [place] [address] PCP - General Family Medicine 08/13/21 documented as of this encounter
--- OUTSIDE RECORDS SUMMARY | 2024-06-15 23:40 | External Medical Summary | Summary of Care ---
Author Name Unknown Organization [facility] Address [address] [facility] [place] [address] Phone [phone] Care Team Providers Care Certified First Assistant Name Role Phone Lolis Tam DO Primary Care Provider [phone] Reason for Visit * Reason Onset Date Comments Referral 05/05/2024 Palliative Encounter Details Date Type Department Care Team (Late st Contact Info) Description 05/05/2024 Telephone Family Practice [place] [address] [place] [address] Lolis Tam DO [address] [facility] [place] [address] Referral (Palliative) Allergies Active Allergy Reactions Criticality Noted Date [...] as of this encounter (statuses as of 05/11/2024) Medications acetaminophen (TYLENOL) 325 MG Tablet Take [...] the morning. 30 Tablet 05/02/20 Active Umeclidinium [place] 62.5 MCG/ACT Inhalation Aerosol Powder Breath Activated [...] as of this encounter (statuses as of 05/11/2024) Active Problems Problem Noted Date Diagnosed Date [...] as of this encounter (statuses as of 05/11/2024) Resolved Problems Problem Noted Date Diagnosed Date Resolved Date COVID-19 02/04/2022 05/05/2024 Chest pain 01/08/2022 05/05/2024 Lower leg DVT (deep venous t hromboembolism), acute, left 06/18/2021 05/05/2024 documented as of this encounter (statuses as of 05/11/2024) Social History Tobacco Use Types Packs/Day Years [...] Telephone Encounter - Rhiannon Acosta OSA - 05/11/2024 9:42 AM EST Palliative referral-info faxed to Dr. Nascimento at [facility]. They will contact pt directly. * Telephone Encounter - Alma Rosa Jay OSA - 05/05/2024 12:07 PM EST Please assist in scheduling with Dr Kothari documented in this encounter Plan of Treatment Upcoming Encounters Date Type Department Care Team (Late st Contact Info) Description 05/16/2024 11:00 AM EST Office Visit [facility] [address] [place] [address] Lolis Tam DO [address] [place] [address] 09/11/2024 1:00 PM EDT Office Visit [facility] [address] [place] [address] Lolis Tam, [address] [place] [address] Scheduled Procedures Name Priority Associated Diagnoses Date/Ti [...] Advance Directives occurred with: Patient Care Teams Certified First Assistant Relationship Specialty Start Date End Date Lolis Tam DO [address] [facility] [place] [id number] PCP - General Family Medicine 08/13/21 documented as of this encounter
--- OUTSIDE RECORDS SUMMARY | 2024-06-15 23:40 | External Medical Summary ---
Author Name Unknown Address Unknown Organization [id number]:LABORATORY [facility] [place] - [address] [facility] [address] Laboratory Report Ordering Provider Test Date Status NANCYMUMTAZ CASTAÑEDALEY 05/05/2024 12:16:06 Final Observation Date Value Abnormality Reference (Units ) Status Bacteria identified in Specimen by Culture 05/05/2024 12:16:06 [id number]^ENTEROB ACTER CLOACAE COMPLEX Abnormal Final >100,000 colonies/mL Enterob acter cloacae complex
This bacterial species is known to produce an inducible AmpC beta lactamase. Except for the treatment of simple cystitis, recommend avoiding penicillins or cephalosporins other than cefepime. Bacteria identified in Speci men by Culture 05/05/2024 12:16:06 [id number]^YEAST Abnormal Final >100,000 colonies/mL Yeast Performing Location LABORATORY [facility] - [address] [facility] [address] Ordering Provider Test Date Status RICARDO CRUZ 05/05/2024 12:16:06 Final Observation Date Value Abnormality Reference (Units ) Status Cefepime susceptibility 05/05/2024 12:16:06 4 Susceptible Final Extended infusion cefepime i s required due to elevated GUERLINE for patients with CrCL greater than 60 mL/min. For severe infections, discuss with Infectious Diseases for alternative therapy. cefOXitin [Susceptibility] 05/05/2024 12:16:06 >=64 Res istant Final Ceftriaxone suceptibility 05/05/2024 12:16:06 >=64 Resi stant Final Avoid unless for the treatme nt of simple cystitis. Ciprofloxacin 05/05/2024 12:16:06 1 Resistant Final Due to serious side effects, the FDA has advised against using Ciprofloxacin to treat uncomplicated UTIs and respiratory tract infections unless there are no alternative treatment options. Gentamicin susceptibility 05/05/2024 12:16:06 >=16 Resi stant Final Levofloxacin susceptibility 05/05/2024 12:16:06 1 In termediate Final Due to serious side effects, the FDA has advised against using Levofloxacin to treat uncomplicated UTIs and respiratory tract infections unless there are no alternative treatment options. Nitrofurantoin susceptibility 05/05/2024 12:16:06 64 Intermediate Final Piperacillin + Tazobactamsusceptibility 05/05/2024 12:16:06 16 Susceptible Final Avoid unless for the treatme nt of simple cystitis.
Extended infusion Piperacillin/Tazobactam is required due to elevated GUERLINE for patients with CrCl greater than 40mL/min. For severe infections, discuss with Infectious Diseases for alternative therapy. Tobramycinsusceptibility 05/05/2024 12:16:06 >=16 Resis tant Final TMP-SMZ susceptibility 05/05/2024 12:16:06 <=20 Suscept ible Final Performing Location LABORATORY [facility] - [address] [place] [address] Ordering Provider Test Date Status RICARDO CRUZ 05/05/2024 12:16:06 Final Observation Date Value Abnormality Reference (Units ) Status Meropenem [Susceptibility] 05/05/2024 12:16:06 0.032 Susceptible Susceptible <2 , Intermediate >=2 , Resistant >=4 Final Performing Location [facility] - [address] [place] [address] Ordering Provider Test Date Status RICARDO CRUZ 05/05/2024 12:16:06 Final Observation Date Value Abnormality Reference (Units ) Status Ertapenem [Susceptibility] 05/05/2024 12:16:06 30 Susceptible Susceptible >21 , Intermediate <=21 , Resistant <=18 Final Test: Culture, Urine, Quanti tative
Specimen Source: Urine, Catheter
Specimen Type: Urine
Specimen Date: 05/05/2024 1216
Result Date: 05/09/2024 0920
Result Status: Final result
Abnormal: Yes
Resulting Lab: [facility]
[address]
[place] [address]

CULTURE

>100,000 colonies/mL Enterobacter cloacae complex (Abnormal)

This bacterial species is known to produce an inducible AmpC beta
lactamase. Except for the treatment of simple cystitis, recommend avoiding
penicillins or cephalosporins other than cefepime.

>100,000 colonies/mL Yeast (Abnormal)

SUSCEPTIBILITY

Enterobacter cloacae complex
METHOD ETEST

CEFEPIME
CEFOXITIN
CEFTRIAXONE
CIPROFLOXACIN
ERTAPENEM
GENTAMICIN
LEVOFLOXACIN
MEROPENEM 0.032 Susceptible
NITROFURANTOIN
PIPERACILLIN TAZOBACTAM
TOBRAMYCIN
TRIMETH/SULFAMETHOXAZOLE

Enterobacter cloacae complex
METHOD JAY MEJIAS

CEFEPIME
CEFOXITIN
CEFTRIAXONE
CIPROFLOXACIN
ERTAPENEM 30 Susceptible
GENTAMICIN
LEVOFLOXACIN
MEROPENEM
NITROFURANTOIN
PIPERACILLIN TAZOBACTAM
TOBRAMYCIN
TRIMETH/SULFAMETHOXAZOLE

Enterobacter cloacae complex
METHOD MICROBROTH DILUTIONS

CEFEPIME 4 Susceptible - Dose Dependent
[1]
CEFOXITIN >=64 Resistant
CEFTRIAXONE >=64 Resistant [2]
CIPROFLOXACIN 1 Resistant [3]
ERTAPENEM
GENTAMICIN >=16 Resistant
LEVOFLOXACIN 1 Intermediate [4]
MEROPENEM
NITROFURANTOIN 64 Intermediate
PIPERACILLIN TAZOBACTAM 16 Susceptible - Dose Dependent
[5]
TOBRAMYCIN >=16 Resistant
TRIMETH/SULFAMETHOXAZOLE <=20 Susceptible

[1] Extended infusion cefepime is required due to elevated GUERLINE for patients
with CrCL greater than 60 mL/min. For severe infections, discuss with
Infectious Diseases for alternative therapy.

[2] Avoid unless for the treatment of simple cystitis.

[3] Due to serious side effects, the FDA has advised against using
Ciprofloxacin to treat uncomplicated UTIs and respiratory tract infections
unless there are no alternative treatment options.

[4] Due to serious side effects, the FDA has advised against using
Levofloxacin to treat uncomplicated UTIs and respiratory tract infections
unless there are no alternative treatment options.

[5] Avoid unless for the treatment of simple cystitis.
Extended infusion Piperacillin/Tazobactam is required due to elevated GUERLINE
for patients with CrCl greater than 40mL/min. For severe infections,
discuss with Infectious Diseases for alternative therapy.

null Performing Location [facility] - [address] [facility] [address]
--- OUTSIDE RECORDS SUMMARY | 2024-06-15 23:40 | External Medical Summary | Summary of Care ---
Author Name Unknown Organization [facility] Address [address] [place] [address] Phone [phone] Care Team Providers Care Zoo Keeper Name Role Phone Lolis Tam DO Primary Care Provider [phone] Reason for Referral * Social Care (Within 10 days (routine)) - Pending Review Specialty Diagnoses / Procedures Referred By Nito nelson Referred To Contact Mess Cook Diagnoses Hospital discharge follow-up Acute cystitis without hematuria UTI symptoms Cerebrovascular disease, arteriosclerotic, post-stroke Hemiplegia, post-stroke (HCC) Bedridden H/O deep vein thrombophlebitis of lower extremity CLL (chronic lymphocytic leukemia) ([facility]) Peripheral polyneuropathy Type 2 diabetes mellitus with hemoglobin A1c goal of less than 7.0% ([facility]) Lolis Tam DO [address] [place] [address] Phone: tel: fax: Referral ID Status Reason Start Date Expiration Date Visits Requested Visits Authorized [id number] Pending Review Specialty Services Required [phone] Question Answer Referral Priority Within 10 days (routine) Where should this appointment be scheduled? [facility] Role Air Quality Consultant Air Quality Consultant Referral Reason Frail Elderly, Transition of Care (HOWIE)/High Risk for Readmission, High Utilizer/Patient Comments Is patient being transitioned from [facility] to Complex Case Management? No * Evaluate & Treat - Unlimited Visits (Within 10 days (routine)) - Pending Review Specialty Diagnoses / Procedures Referred By Contac t Referred To Contact Hospice and Palliative Medicine / Palliative Medicine Diagnoses Cerebrovascular disease, arteriosclerotic, post-stroke Hemiplegia, post-stroke ([facility]) Bedridden Lolis Tam DO [address] [place] [address] Phone: tel: fax: Referral ID Status Reason Start Date Expiration Date Visits Requested Visits Authorized [id number] Pending Review Specialty Services Required [phone] Question Answer Referral Priority Within 10 days (routine) Where should this appointment be scheduled? [facility] Reason for Referral: Neurological Disease Palliative Medicine To Address: Goals of Care Referral Location Office Comments Either schedule with Dr Kothari or Dr Boles Reason for Visit * Reason Onset Date Comments Hospital Follow-Up Pt reports wi th daughter, Anita Morrell, for HD from [facility], home for 4-5 days, not doing any better, for UTI, confusion, fungal infection Hospital Follow-Up 05/05/2024 Encounter Details Date Type Department Care Team (Latest Contact Info) Description 05/05/2024 11:00 AM EST Office Visit Family [facility] [place] Tima Gallegos [address] [place] [address] Lolis Tam DO [address] [place] [address] Hospital discharge follow-up*; Acute cystitis without hematuria; UTI symptoms; Cerebrovascular disease, arteriosclerotic, post-stroke; Hemiplegia, post-stroke ([facility]); Bedridden; H/O deep vein thrombophlebitis of lower extremity; CLL (chronic lymphocytic leukemia) ([facility]); Peripheral polyneuropathy; Type 2 diabetes mellitus with hemoglobin A1c goal of less than 7.0% ([facility]); 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 30 Tablet Active Umeclidinium [place] 62.5 MCG/ACT Inhalation Aerosol Powder Breath Activated (INCRUSE ellipta) Inhale 1 Puff by mouth in the morning. 30 Each Active DULoxetine HCl 30 MG Oral Capsule Delayed Release Particles (Cymbalta)Indicat ions:Peripheral polyneuropathy Take 1 Capsule by mouth in the morning. Do not cut, crush or chew. 30 Capsule 2 Active Ciprofloxacin HCl 250 MG Oral Tablet (Cipro)Indication s:UTI symptoms Take 1 Tablet by mouth in the morning and 1 Tablet before bedtime. Do all this for 10 days. 20 Tablet 2023 Active Fluconazole 100 MG Oral Tablet (Diflucan) Take 2 Tablets by mouth in the morning. 2023 Discontinued documented as of this encounter (statuses as of 05/09/2024) Active Problems Problem Noted Date Diagnosed Date [...] as of this encounter (statuses as of 05/09/2024) Resolved Problems Problem Noted Date Diagnosed Date Resolved Date COVID-19 02/04/2022 05/05/2024 Chest pain 01/08/2022 05/05/2024 Lower leg DVT (deep venous t hromboembolism), acute, left 06/18/2021 05/05/2024 documented as of this encounter (statuses as of 05/09/2024) Social History Tobacco Use Types Packs/Day Years [...] wu e documented as of this encounter Last Filed Vital Signs Vital Sign Reading Time Taken Comments Blood Pressure 110/60 05/05/2024 10:52 AM EST Pulse 100 05/05/2024 10:52 AM EST Temperature 36.6 C (97.8 F) 05/05/2024 10:[address] Respiratory Rate 20 05/05/2024 10:52 AM EST Oxygen Saturation 95% 05/05/2024 10:52 AM EST Inhaled Oxygen Concentration - - Weight - - Height 165.1 cm (5' 5") 05/05/2024 10:52 AM EST Body Mass Index - - documented in this encounter Functional Status * Are you [...] documented in this encounter Progress Notes * Lolis Tam, - 05/05/2024 11:10 AM EST SUBJECTIVE: Ruthann Oro is a 83 year old female. Chief Complaint Patient presents with Hospital Follow-Up Pt reports with daughter, Anita Morrell, for HD from [facility], home for 4-5 days, not doing any better,for UTI, confusion, fungal infection Hospital Follow-Up Recent Admission: Patient was recently admitted to [facility]. The date of discharge was 05/01/24. Discharge report received and reviewed. HPI: 83-year-old female here today for hospital follow-up and essentially to reestablish care Patient has been in and out of nursing homes for the last couple years and now is currently back living with her daughter She does have [facility] services, currently has home nursing, therapy occupational and speech therapycoming to the home Today daughter states that she still seems confused compared to her baseline although in her chart she has a history of vascular dementia Patient repeats herself multiple times well in the room She complains of ongoing leg pain from peripheral neuropathy which has been an ongoing issue, some of her medications were stopped due to her level of sedation during her last admission including I believe her Lyrica, trazodone, Valium and tramadol She also complains repeatedly of ear pain Daughter is concerned that she still has issues with her UTI, last urinary tract infection showed yeast and was treated Diflucan Ramirez is changed every 30 days She does have follow-up with Urology in [place] Daughter states that she really is not eating as well she should Will likely need pads wipes and brief sent to a [facility], she was getting knees from hospice however hospice has discharged her at this point in time Patient Active Problem List Diagnosis Dyslipidemia, goal to be determined HTN, goal below 140/90 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 Esophageal reflux Abnormal results of liver function studies Tobacco use disorder Cerebrovascular disease, arteriosclerotic, post-stroke Peripheral polyneuropathy Unable to care for self Bedridden H/O deep vein thrombophlebitis of lower extremity Other constipation Acute cystitis without hematuria CLL (chronic lymphocytic leukemia) ([facility]) Hemiplegia, post-stroke ([facility]) Type 2 diabetes mellitus with hemoglobin A1c goal of less than 7.0% ([facility]) Mild vascular dementia without behavioral disturbance, psychotic disturbance, mood disturbance, or anxiety ([facility]) Current Outpatient Medications Medication Sig Dispense Refill acetaminophen (TYLENOL) 325 MG Tablet Take 1 Tablet by mouth every 6 hours as needed. bisacodyl (DULCOLAX) 10 MG suppository Administer 1 Suppository into the rectum every 3 days. Vitamin B-12 100 MCG Oral Tablet (vitamin B-12) Take 1 Tablet by mouth in the morning. amLODIPine Besylate 5 MG Oral Tablet (Norvasc) Take 2 Tablets by mouth in the morning. Acetaminophen 325 MG Oral Tablet (Tylenol) Take 3 Tablets by mouth every 6 hours as needed for Pain, Mild or Pain, Moderate. 30 Tablet 2 Albuterol Sulfate (2.5 MG/3ML) 0.083% Inhalation Nebulization Solution (Proventil) Inhale 1 Vial via nebulizer every 4 hours as needed for Wheezing or Shortness of Breath. 360 mL 11 Docusate Sodium 100 MG Oral Capsule (Colace) Take 1 Capsule by mouth in the morning and 1 Capsule before bedtime. 10 Capsule 2 Polyethylene Glycol 3350 17 GM Oral Packet (Miralax) Take 1 Packet by mouth in the morning and 1 Packet before bedtime. 14 Each 2 Albuterol Sulfate HFA 108 (90 Base) MCG/ACT Inhalation Aerosol Solution Inhale 2 Puffs by mouth every 6 hours as needed for Dyspnea. 18 g 0 Apixaban 2.5 MG Oral Tablet (Eliquis) Take 1 Tablet by mouth in the morning and 1 Tablet before bedtime. 60 Tablet 0 Atorvastatin Calcium 10 MG Oral Tablet (Lipitor) Take 1 Tablet by mouth in the morning. 30 Tablet 0 Citalopram Hydrobromide 20 MG Oral Tablet (CeleXA) Take 1 Tablet by mouth in the morning. 30 Tablet0 Ferrous Sulfate 324 (65 Fe) MG Oral Tablet Delayed Release Take 1 Tablet by mouth daily with breakfast. 30 Tablet 0 Fluticasone-Salmeterol 113-14 MCG/ACT Aerosol Powder Breath Activated Inhale 1 Inhalation by mouth in the morning and 1 Inhalation in the evening. 1 Each 0 Melatonin 5 MG Oral Tablet Take 1 Tablet by mouth at bedtime. 30 Tablet 0 Pantoprazole Sodium 40 MG Oral Tablet Delayed Release (Protonix) Take 1 Tablet by mouth in the morning. 30 Tablet 0 Umeclidinium [place] 62.5 MCG/ACT Inhalation Aerosol Powder Breath Activated (INCRUSE ellipta) Inhale 1 Puff by mouth in the morning. 30 Each 0 DULoxetine HCl 30 MG Oral Capsule Delayed Release Particles (Cymbalta) Take 1 Capsule by mouth in the morning. Do not cut, crush or chew. 30 Capsule 2 Ciprofloxacin HCl 250 MG Oral Tablet (Cipro) Take 1 Tablet by mouth in the morning and 1 Tablet before bedtime. Do all this for 10 days. 20 Tablet 0 Sulfamethoxazole-Trimethoprim 800-160 MG Oral Tablet (Bactrim DS) Take 1 Tablet by mouth in the morning and 1 Tablet before bedtime. Do all this for 7 days. Until gone. 14 Tablet 0 Fluconazole 200 MG Oral Tablet (Diflucan) Take 1 Tablet by mouth in the morning for 14 days. until gone.. 14 Tablet 0 No current facility-administered medications for this visit. Current and discharge medications have been reconciled. Review of patient's allergies indicates: Allergen Reactions Aleve [Naproxen Sodium] Ibuprofen Ibuprofen Unknown Other reaction(s): Other See Comments shakiness Iodine [Iodides] Ivp Dye Metformin Other reaction(s): Other (see comments) "Feels like I'm going to " Naproxen Other reaction(s): Other See Comments shakiness Penicillins Pregabalin Other reaction(s): Confusion Penicillins Rash hives Other reaction(s): Chills OBJECTIVE: BP 110/60 | Pulse 100 | Temp 97.8 F (36.6 C) (Temporal Artery) | Resp 20 | Ht 5' 5" (1.651 m) |SpO2 95% | BMI 22.47 kg/m | BSA 1.68 m REVIEW OF SYSTEMS: PHYSICAL EXAM: BP 110/60 | Pulse 100 | Temp 97.8 F (36.6 C) (Temporal Artery) | Resp 20 | Ht 5' 5" (1.651 m) |SpO2 95% | BMI 22.47 kg/m | BSA 1.68 m Physical Exam Vitals and nursing note reviewed. Constitutional: General: She is not in acute distress. HENT: Head: Normocephalic and atraumatic. Right Ear: There is impacted cerumen. Left Ear: There is impacted cerumen. Mouth/Throat: Mouth: Mucous membranes are moist. Cardiovascular: Rate and Rhythm: Normal rate and regular rhythm. Pulmonary: Effort: Pulmonary effort is normal. Breath sounds: Normal breath sounds. Musculoskeletal: General: Deformity present. Right lower leg: Edema present. Left lower leg: Edema present. Neurological: Mental Status: She is disoriented. Motor: Weakness present. Gait: Gait abnormal. Comments: Patient has hemiparesis of left upper extremity and left lower extremity She is able to move her right lower leg minimally, she is able to lift her right upper extremity toher mouth ASSESSMENT: Hospital discharge follow-up (Primary) - DISCH MED RECON CUR MED LIS - POPULATION HEALTH REFERRAL OP Acute cystitis without hematuria - POPULATION HEALTH REFERRAL OP - CULTURE, URINE, QUANTITATIVE UTI symptoms - URINALYSIS, POINT OF CARE - Ciprofloxacin HCl 250 MG Oral Tablet (Cipro); Take 1 Tablet by mouth in the morning and 1 Tablet before bedtime. Do all this for 10 days. - POPULATION HEALTH REFERRAL OP - CULTURE, URINE, QUANTITATIVE Cerebrovascular disease, arteriosclerotic, post-stroke - PALLIATIVE CARE REFERRAL OP - POPULATION HEALTH REFERRAL OP Hemiplegia, post-stroke (HCC) - PALLIATIVE CARE REFERRAL OP - POPULATION HEALTH REFERRAL OP Bedridden - PALLIATIVE CARE REFERRAL OP - POPULATION HEALTH REFERRAL OP H/O deep vein thrombophlebitis of lower extremity - POPULATION HEALTH REFERRAL OP CLL (chronic lymphocytic leukemia) ([facility]) - COMPREHENSIVE METABOLIC PANEL; Future; Expected date: 05/05/2024 - LIPID PANEL WITH DIRECT LDL IF TG IS HIGH; Future; Expected date: 05/05/2024 - CBC WITH WBC DIFFERENTIAL; Future; Expected date: 05/05/2024 - HEMOGLOBIN A1C; Future; Expected date: 05/05/2024 - POPULATION HEALTH REFERRAL OP Peripheral polyneuropathy - DULoxetine HCl 30 MG Oral Capsule Delayed Release Particles (Cymbalta); Take 1 Capsule by mouth in the morning. Do not cut, crush or chew. 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 Boles or Dr. Kothari locally Will try to get patient set up with Case Management services here at [facility] Continue home physical therapy, occupational therapy speech therapy There was also mentioned at some point in time about the possibility of CLL in 1 of her multiple admissions, will follow-up on labs, may need to see Hematology Will follow-up in 3 or 4 months Follow-up: Return in about 4 months (around 09/03/2024). | Check-out note: Please fax lab orders to [facility] home nursing to be drawn I spent a total of 40-54 minutes (exact time 55 mins) minutes on the date of service in preparation, delivery, and documentation of the care provided to Ruthann Oro excluding any time spent in performance of separately billed services. Lolis Tam DO documented in this encounter Nursing Notes * Sharee Hopson CCMA - 05/05/2024 3:56 PM EST bilateral ear lavage done with medium amount of cerumen removed. patient tolerated well. documented in this encounter Plan of Treatment Upcoming Encounters Date Type Department Care Team (Late st Contact Info) Description 09/11/2024 1:00 PM EDT Office Visit [facility] Tima Gallegos [address] [place] [address] Lolis Tam DO [address] [place] [address] Scheduled Orders Name Type Priority Associated Diagnoses Orde r Schedule COMPREHENSIVE METABOLIC PANEL Lab Routine CLL (chronic lymphocytic leukemia) (HCC) Type 2 diabetes mellitus with hemoglobin A1c goal of less than 7.0% (HCC) Expected: 05/05/2024 (Approximate), Expires: 05/05/2025 LIPID PANEL WITH DIRECT LDL IF TG IS HIGH Lab Routine CLL (chronic lymphocytic leukemia) (HCC) Type 2 diabetes mellitus with hemoglobin A1c goal of less than 7.0% (HCC) Expected: 05/05/2024 (Approximate), Expires: 05/05/2025 CBC WITH WBC DIFFERENTIAL Lab Routine CLL (chronic lymphocytic leukemia) (HCC) Type 2 diabetes mellitus with hemoglobin A1c goal of less than 7.0% (HCC) Expected: 05/05/2024 (Approximate), Expires: 05/05/2025 HEMOGLOBIN A1C Lab Routine CLL (chronic lymphocytic leukemia) (HCC) Type 2 diabetes mellitus with hemoglobin A1c goal of less than 7.0% (HCC) Expected: 05/05/2024 (Approximate), Expires: 05/05/2025 ALBUMIN / CREATININE RATIO, URINE Lab Routine Type 2 diabetes mellitus with hemoglobin A1c goal of less than 7.0% (HCC) Expected: 05/05/2024, Expires: 05/05/2025 Scheduled Procedures Name Priority Associated Diagnoses Date/Ti me ENDOSCOPIC RETROGRADE CHOLANGIOPANCREATOGRAPHY (ERCP) DIAGNOSTIC Recall Choledocholithiasis Scheduled Referrals Name Type Priority Associated Diagnoses Orde r Schedule PALLIATIVE CARE REFERRAL OP Referral Within 10 days (routine) Cerebrovascular disease, arteriosclerotic, post-stroke Hemiplegia, post-stroke (HCC) Bedridden Ordered: 05/05/2024 POPULATION HEALTH REFERRAL OP Referral Within 10 days (routine) Hospital discharge follow-up Acute cystitis without hematuria UTI symptoms Cerebrovascular disease, arteriosclerotic, post-stroke Hemiplegia, post-stroke (HCC) Bedridden H/O deep vein thrombophlebitis of lower extremity CLL (chronic lymphocytic leukemia) ([facility]) Peripheral polyneuropathy Type 2 diabetes mellitus with hemoglobin A1c goal of less than 7.0% ([facility]) Ordered: 05/05/2024 Health Maintenance Due Date Last Done Comments [...] Procedure Name Priority Date/Time Associated Diagnosis Comments CULTURE, URINE, QUANTITATIVE Routine 05/05/2024 12:16 PM EST Acute cystitis without hematuria UTI symptoms URINALYSIS, POINT OF CARE Routine 05/05/2024 11:53 AM EST UTI symptoms documented in this encounter Results * (ABNORMAL) CULTURE, URINE, QUANTITATIVE (05/05/2024 12:16 PM EST) Culture Growth >100,000 colonies/mL Enterobacter cloacae complex(A) MICROBROTH DILUTIONS 05/09/2024 9:20 AM EST LABORATORY [facility] Comment:This bacterial speci es is known to produce an inducible AmpC beta lactamase. Except for the treatment of simple cystitis, recommend avoiding penicillins or cephalosporins other than cefepime. Culture Growth >100,000 colonies/mL Yeast(A) MICROBROTH DILUTIONS 05/09/2024 9:20 AM EST LABORATORY [facility] Urine Urine specimen / Unknown Non-blood Collection / Unknown 05/05/2024 12:16 PM EST 05/05/2024 12:16 PM EST Narrative Organism Antibiotic Method Susceptibility Enterobacter cloacae complex Cefepime MICROBROTH DILUTIONS 4: Susceptible - Dose Dependent Comment:Extended inf usion cefepime is required due to elevated GUERLINE for patients with CrCL greater than 60 mL/min. For severe infections, discuss with Infectious Diseases for alternative therapy. Enterobacter cloacae complex Cefoxitin MICROBROTH DILUTIONS >=64: Resistant Enterobacter cloacae complex Ceftriaxone MICROBROTH DILUTIONS >=64: Resistant Comment:Avoid unless for the treatment of simple cystitis. Enterobacter cloacae complex Ciprofloxacin MICROBROTH DILUTIONS 1: Resistant Comment:Due to case us side effects, the FDA has advised against using Ciprofloxacin to treat uncomplicated UTIs and respiratory tract infections unless there are no alternative treatment options. Enterobacter cloacae complex Gentamicin MICROBROTH DILUTIONS >=16: Resistant Enterobacter cloacae complex Levofloxacin MICROBROTH DILUTIONS 1: Intermediate Comment:Due to caes us side effects, the FDA has advised against using Levofloxacin to treat uncomplicated UTIs and respiratory tract infections unless there are no alternative treatment options. Enterobacter cloacae complex Nitrofurantoin MICROBROTH DILUTIONS 64: Intermediate Enterobacter cloacae complex Piperacillin Tazobactam MICROBROTH DILUTIONS 16: Susceptible - Dose Dependent Comment: Avoid unless for the treatment of simple cystitis. Extended infusion Piperacillin/Tazobactam is required due to elevated GUERLINE for patients with CrCl greater than 40mL/min. For severe infections, discuss with Infectious Diseases for alternative therapy. Enterobacter cloacae complex Tobramycin MICROBROTH DILUTIONS >=16: Resistant Enterobacter cloacae complex Trimeth/Sulfamethoxazol e MICROBROTH DILUTIONS <=20: Susceptible Enterobacter cloacae complex Meropenem ETEST 0.032: Susceptible Enterobacter cloacae complex Ertapenem MISTY MEJIAS 30: Susceptible us Lolis Tam DO LAB MICRO - GENERAL ORDERA BLES Final Result [facility]ATORY [facility] [address] [place] [address] * (ABNORMAL) URINALYSIS, POINT OF CARE (05/05/2024 11:53 AM EST) Color, Urine Dark Yellow(A) Light Yellow, Yellow 05/05/2024 12:04 PM EST LABORATORY [facility]13 Clarity, Urine Cloudy(A) Clear 05/05/2024 12:04 PM EST LABORATORY [place] [id number] Glucose, Urine Negative Negative mg/dL 05/05/2024 12:04 PM EST LABORATORY [facility]13 Bilirubin, Urine Small(A) Negative 05/05/2024 12:04 PM EST LAB[facility]AT[facility]13 Ketone, Urine Trace(A) Negative mg/dL 05/05/2024 12:04 PM EST LAB[facility]ATORY [facility] Specific [place], Urine 1.025 1.003 - 1.030 05/05/2024 12:04 PM EST LABORATORY [facility]13 Blood, Urine Large(A) Negative 05/05/2024 12:04 PM EST LABORATORY [facility] 56[facility]13 pH, Urine 5.5 5.0, 5.5, 6.0, 6.5, 7.0, 7.5 units 05/05/2024 12:04 PM EST LABORATORY [facility]13 Protein, Urine >=300(A) Negative mg/dL 05/05/2024 12:04 PM EST LABORATORY [facility]13 Urobilinogen, Urine 0.2 0.2, 1.0 mg/dL 05/05/2024 12:04 PM EST LABORATORY [facility] 56[facility]13 Nitrite, Urine Negative Negative 05/05/2024 12:04 PM EST LABORATORY [place] 56[facility]13 Esterase, Urine Large(A) Negative 05/05/2024 12:04 PM EST LABORATORY [facility]13 Urine 05/05/2024 11:5 3 AM EST 05/05/2024 12:04 PM EST Lolis Tam DO LAB POINT OF CARE TEST DOCKED DEVICE UNSOLICITED RESULTS Final Result ARTEM[facility] [id number] [address] [facility] [place] [address] documented in this encounter Visit Diagnoses Diagnosis Hospital discharge follow-up- Primary Other follow-up examination Acute cystitis without hematuria Acute cystitis UTI symptoms Other symptoms involving urinary system Cerebrovascular disease, arteriosclerotic, post-stroke Cerebral atherosclerosis Hemiplegia, post-stroke (HCC) Hemiplegia affecting unspecified side, late effect of cerebrovascular disease Bedridden Bed confinement status H/O deep vein thrombophlebitis of lower extremity Personal history of thrombophlebitis CLL (chronic lymphocytic leukemia) (HCC) Chronic lymphoid leukemia, without mention of having achieved remission Peripheral polyneuropathy Unspecified hereditary and idiopathic peripheral neuropathy Type 2 diabetes mellitus with hemoglobin A1c goal of less than 7.0% (HCC) 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 Question Answer Comments Discussion of Advance Directives occurred with: Patient Care Teams Zoo Keeper Relationship Specialty Start Date End Date Lolis Tam DO [address] [facility] [place] [address] PCP - General Family Medicine 08/13/21 documented as of this encounter
--- OUTSIDE RECORDS SUMMARY | 2024-06-15 23:40 | External Medical Summary | Summary of Care ---
Author Name Unknown Organization [facility] Address [address] [facility] [address] Phone [phone] Care Team Providers Care Tool Crib Supervisor Name Role Phone Lolis Tam DO Primary Care Provider +1- [phone] Reason for Visit * Reason Onset Date Comments Order Request 05/08/2024 Encounter Details Date Type Department Care Team ([facility] st Contact Info) Description 05/08/2024 [facility] [place] [address] Lolis Tam DO [address] [place] [address] Order Request Allergies Active Allergy Reactions Criticality Noted Date [...] as of this encounter (statuses as of 05/08/2024) Medications acetaminophen (TYLENOL) 325 MG Tablet Take [...] the morning. 30 Tablet 05/02/20 Active Umeclidinium [place] 62.5 MCG/ACT Inhalation Aerosol Powder Breath Activated [...] as of this encounter (statuses as of 05/08/2024) Active Problems Problem Noted Date Diagnosed Date [...] as of this encounter (statuses as of 05/08/2024) Resolved Problems Problem Noted Date Diagnosed Date Resolved Date COVID-19 02/04/2022 05/05/2024 Chest pain 01/08/2022 05/05/2024 Lower leg DVT (deep venous t hromboembolism), acute, left 06/18/2021 05/05/2024 documented as of this encounter (statuses as of 05/08/2024) Social History Tobacco Use Types Packs/Day Years [...] Telephone Encounter - Rhiannon Acosta OSA - 05/08/2024 2:48 PM EST DME and demo info faxed as requested. * Telephone Encounter - Sharee Hopson CCMA - 05/08/2024 2:30 PM EST Please assist with faxing order. Thank you * Telephone Encounter - Danish Boles MD - 05/08/2024 11:17 AM EST Covering for Dr. Tam. Signed. Thanks. * Telephone Encounter - Ana Ochoa RN - 05/08/2024 11:10 AM EST Pt has custom wheelchair from [facility] Having issues with neck support and footrests [facility] needs order for wheelchair repairs faxed to them along with demographics Dr. Tam, Order pended, please sign if agreeable documented in this encounter Plan of Treatment Upcoming Encounters Date Type Department Care Team (Late st Contact Info) Description 09/11/2024 1:00 PM EDT Office Visit Family [facility] [place] [address] [place] [address] Lolis Tam DO [address] [place] [address] Scheduled Procedures Name Priority Associated Diagnoses Date/Ti [...] of cerebrovascular disease Bedridden Bed confinement status Type 2 diabetes mellitus with hemoglobin A1c goal of less than 7.0% (HCC) documented in this encounter Advance Directives * Full Code (Latest Code Status on File) Date Activated Date Inactivated Comments 01/08/2022 6:10 PM 02/24/2022 6:34 PM This order reflects the patients wishes and were consensually agreed upon. Question Answer Comments Discussion of Advance Directives occurred with: Patient Care Teams Tool Crib Supervisor Relationship Specialty Start Date End Date Lolis Tam DO [address] [facility] [place] [address] PCP - General Family Medicine 08/13/21 documented as of this encounter
--- OUTSIDE RECORDS SUMMARY | 2024-06-15 23:40 | External Medical Summary | Summary of Care ---
Author Name Unknown Organization [facility] Address [address] [place] [address] Phone [phone] Care Team Providers Care Medical Service Representative Name Role Phone Lolis Tam DO Primary Care Provider +1- [phone] Reason for Visit * Reason Onset Date Comments Hospital Follow-Up 05/12/2024 [facility] 05/11 Encounter Details Date Type Department Care Team ([facility] Contact Info) Description 05/12/2024 Telephone Family Practice [facility] [place] [address] [facility] [address] Awilda Mckenzie RN Hospital Follow-Up ([facility] 05/11) Allergies Active Allergy Reactions Criticality Noted Date [...] as of this encounter (statuses as of 05/12/2024) Medications acetaminophen (TYLENOL) 325 MG Tablet Take [...] the morning. 30 Tablet 05/02/20 Active Umeclidinium [place] 62.5 MCG/ACT Inhalation Aerosol Powder Breath Activated [...] Tablet by mouth in the morning. 05/11/20 025 Active Ciprofloxacin HCl 250 MG Oral Tablet (Cipro)Indications :UTI symptoms Take 1 Tablet by mouth in the morning and 1 Tablet before bedtime. Do all this for 10 days. 20 Tablet 05/05/20 024 Discontin ued(Medic ation/Dos e Changed) Sulfamethoxazole-T rimethoprim 800-160 MG Oral Tablet (Bactrim DS) Take 1 Tablet by mouth in the morning and 1 Tablet before bedtime. Do all this for 7 days. Until gone. 14 Tablet 05/09/20 024 Discontin ued(Medic ation List Clean Up) Fluconazole 200 MG Oral Tablet (Diflucan) Take 1 Tablet by mouth in the morning for 14 days. until gone.. 14 Tablet 05/09/20 024 Discontin ued(Medic ation List Clean Up) documented as of this encounter (statuses as of 05/12/2024) Active Problems Problem Noted Date Diagnosed Date [...] as of this encounter (statuses as of 05/12/2024) Resolved Problems Problem Noted Date Diagnosed Date Resolved Date COVID-19 02/04/2022 05/05/2024 Chest pain 01/08/2022 05/05/2024 Lower leg DVT (deep venous t hromboembolism), acute, left 06/18/2021 05/05/2024 documented as of this encounter (statuses as of 05/12/2024) Social History Tobacco Use Types Packs/Day Years [...] Encounter - Awilda Mckenzie RN - 05/12/2024 1:31 PM EST Transitions of Care Note Reason for Referral:Recent Admission Phone visit for follow up: HOWIE Admitted to: [facility], Date: 05/06 Discharged to: home, Date: 05/11 Diagnosis driving hospitalization: Recurrent UTI Source/Contact: Authorized Credit Risk Associate, daughter SUBJECTIVE Consent: Verbal consent for review of hospital discharge: Yes REVIEW OF SYSTEMS Patient/Other Reports: Current patient/caregiver problems or concerns: none at this time. HH RN was just getting there as we finished our conversation CV: Denies problems Pulmonary: Denies problems Chills/Sweats/Fever:Denies chills/sweats Denies fever Appetite:Denies problems such as nausea, vomiting, burning, decreased appetite Current diet: as before Bowel: denies problems Bladder: ostomy/indwelling catheter: ng Wound (If applicable): N/A Pain:Denies Sleep:Denies problems FUNCTIONAL STATUS: ADL'S: Needs Assistance With:All ADL's as pt is completely dependent IADL'S: Needs Assistance With:Grocery Shopping, Cooking food, Routine Housework, Using telephone, Taking care of pets, Taking medications, Attending to safety, and Managing money Cognitive and Mental Health: alert and oriented x 2 and able to communicate, understand some instructions, process some information MEDICATION RECONCILIATION Medications: Discharge med list reviewed with patient or caregiver New medication(s) filled since hospitalization- Levaquin Discontinued medication(s) since hospitalization- bactrim, cipro, diflucan Reports all medications taken as prescribed. Denies side effects OBJECTIVE ASSESSMENT Medication Risk Assessment: No risks identified Did patient fail outpatient treatment? Yes Discharge instructions available for review? Yes PLAN Symptom Monitoring Interventions:Member/caregiver education - signs and symptoms to contact PrimaryCare (DO NOT DELETE-Three barrera symptoms patient is to report to PCP) 1. Fever 2. Change in mental status 3. Bloody urine Hair Spring CutterPainter Drum of Care interventions/Action Plan: Medication reconciliation and 5 - 7 day follow-up with PCP in place - Date: 05/16 Educated on role of HOWIE completed with patient/caregiver. Educated patient/caregiver on patient right to have input on HOWIE plan of care. Verification of Home Health/DME if indicated: YES [facility] Identified Care Gaps: Yes Care Gaps closed this call: Appointment made or confirmed, Medication adherence, and Transition of Care follow-up communication Re-evaluation of Plan of Care and progress towards goals achievement: Patient education this visit: Verbal, as above Plan to follow-up as previously scheduled, instructed to call Primary Care Provider with change in symptoms or as needed before next follow-up, discharge needs met, verbalizes understanding and agrees with plan. Awilda Mckenzie, RN documented in this encounter Plan of Treatment Upcoming Encounters Date Type Department Care Team (Late st Contact Info) Description 05/16/2024 11:00 AM EST Office Visit [facility] [place] [address] [place] [address] Lolis Tam DO [address] [place] [address] 09/11/2024 1:00 PM EDT Office Visit [facility] [address] [place] [address] Lolis Tam DO [address] [place] [address] Scheduled Procedures Name Priority Associated Diagnoses Date/Ti [...] Directives occurred with: Patient Care Teams Medical Service Representative Relationship Specialty Start Date End Date Lolis Tam DO [address] [facility] [place] [address] PCP - General Family Medicine 08/13/21 documented as of this encounter
--- OUTSIDE RECORDS SUMMARY | 2024-06-15 23:40 | External Medical Summary | Summary of Care ---
Author Name Unknown Organization [facility] Address [address] [place] [facility] [place] [place] [address] Phone [phone] Care Team Providers Care Beef Cattle Farmer Name Role Phone Lolis Tam DO Primary Care Provider +1- [phone] Reason for Visit * Reason Onset Date Comments Test Results 05/09/2024 Encounter Details Date Type Department Care Team (Late st Contact Info) Description 05/09/2024 [facility] [address] [facility] [place] [address] Lolis Tam DO [address] [place] [address] Test Results Allergies Active Allergy Reactions Criticality Noted Date [...] in the morning. 30 Tablet Active Umeclidinium [place] 62.5 MCG/ACT Inhalation Aerosol Powder Breath Activated [...] for 10 days. 20 Tablet 2023 Active Sulfamethoxazole- Trimethoprim 800-160 MG Oral Tablet (Bactrim DS) Take 1 Tablet by mouth in the morning and 1 Tablet before bedtime. Do all this for 7 days. Until gone. 14 Tablet 2023 Active Fluconazole 200 MG Oral Tablet (Diflucan) Take 1 Tablet by mouth in the morning for 14 days. until gone.. 14 Tablet 2024 Active Fluconazole 100 MG Oral Tablet (Diflucan) [...] Assessment Author Yes 01/08/2022 6:38 PM Sy aRmos RN * Do you have difficulty dressing [...] Telephone Encounter - Sharee Hopson CCMA - 05/09/2024 11:51 AM EST Called pt, spoke to daughter, Anita Morrell, pt has been admitted to [facility] since 05/06/24, verbalized understanding. FYI * Telephone Encounter - Lolis Tam DO - 05/09/2024 11:33 AM EST Urine infected with bacteria and yeast Will need to restart diflucan and change cipro to bactrim Sent to pharmacy If pt gets sicker will need to go to ER for IV antibiotics due to the high amount of resistance of the bacteria in her urine She needs to follow up with urology as well documented in this encounter Plan of Treatment Upcoming Encounters Date Type Department Care Team (Late st Contact Info) Description 09/11/2024 1:00 PM EDT Office Visit Family Practice [facility] [place] [address] [place] [address] Lolis Tam DO [address] [place] [address] Scheduled Procedures Name Priority Associated Diagnoses Date/Ti [...] Advance Directives occurred with: Patient Care Teams Beef Cattle Farmer Relationship Specialty Start Date End Date Lolis Tam DO [address] [facility] [place] [address] PCP - General Family Medicine 08/13/21 documented as of this encounter
--- OUTSIDE RECORDS SUMMARY | 2024-06-15 23:40 | External Medical Summary | Summary of Care ---
Author Name Unknown Organization [facility] Address [address] [facility] [place] [address] Phone [phone] Care Team Providers Care Dynamo Tender Name Role Phone Lolis Tam DO Primary Care Provider +1- [phone] Encounter Details Date Type Department Care Team (Late st Contact Info) Description 05/08/2024 Orders Only PATIENT PORTAL DO NOT DELETE THIS DEPT USED BY [place] [id number] Allergies Active Allergy Reactions Criticality Noted Date [...] Tablet by mouth at bedtime. 30 Tablet 12/17/20 24 Active Pantoprazole Sodium 40 MG Oral Tablet Delayed Release (Protonix) Take 1 Tablet by mouth in the morning. 30 Tablet 05/02/20 Active Umeclidinium [place] 62.5 MCG/ACT Inhalation Aerosol Powder Breath Activated [...] 1:00 PM EDT [facility] [address] [address] [place] [address] Lolis Tam DO [address] [place] [address] Scheduled Procedures Name Priority Associated Diagnoses Date/Ti [...] Advance Directives occurred with: Patient Care Teams Dynamo Tender Relationship Specialty Start Date End Date Lolis Tam DO [address] [facility] [place] [id number] PCP - General Family Medicine 08/13/21 documented as of this encounter
--- OUTSIDE RECORDS SUMMARY | 2024-06-15 23:40 | External Medical Summary | Summary of Care ---
Author Name Unknown Organization [facility] Address [address] [facility] [place] [address] Phone [phone] Care Team Providers Care Mobile Marketing Manager Name Role Phone Lolis Tam DO Primary Care Provider +1- [phone] Reason for Visit * Reason Onset Date Comments Referral 05/05/2024 Palliative Encounter Details Date Type Department Care Team (Late st Contact Info) Description 05/05/2024 Telephone Family Practice [place] [address] [place] [address] Lolis Tam DO [address] [facility] [place] [address] Referral (Palliative) Allergies Active [...] the morning. 30 Tablet 05/02/20 Active Umeclidinium [place] 62.5 MCG/ACT Inhalation Aerosol Powder Breath [...] Palliative referral-info faxed to Dr. Nascimento at [facility]. They will contact pt directly. * Telephone Encounter - Alma Rosa Jay OSA - 05/05/2024 12:07 PM EST Please assist in scheduling with Dr Kothari documented in this encounter Plan of Treatment Upcoming Encounters Date Type Department Care Team (Late st Contact Info) Description 05/16/2024 11:00 AM EST Office Visit [facility] [address] [address] [place] [address] Lolis Tam DO [address] [place] [address] 09/11/2024 1:00 PM EDT Office Visit [facility] [address] [address] [place] [address] Lolis Tam, [address] [place] [address] Scheduled Procedures Name Priority Associated Diagnoses Date/Ti [...] Advance Directives occurred with: Patient Care Teams Mobile Marketing Manager Relationship Specialty Start Date End Date Lolis Tam DO [address] [facility] [place] [address] PCP - General Family Medicine 08/13/21 documented as of this encounter
--- OUTSIDE RECORDS SUMMARY | 2024-06-15 23:40 | External Medical Summary | Summary of Care ---
Author Name Unknown Organization [facility] Address [address] [place] [facility] [place] [address] Phone [phone] Care Team Providers Care Insurance Specialist Name Role Phone Lolis Tam DO Primary Care Provider +1- [phone] Reason for Visit * Reason Onset Date Comments Test Results 05/09/2024 Encounter Details Date Type Department Care Team (Late st Contact Info) Description 05/09/2024 [facility] [facility] [place] [address] Lolis Tam DO [address] [place] [address] Test Results Allergies Active Allergy Reactions [...] in the morning. 30 Tablet Active Umeclidinium [place] 62.5 MCG/ACT Inhalation Aerosol Powder Breath Activated [...] Anita Morrell, pt has been admitted to [facility] since 05/06/24, verbalized understanding. FYI * Telephone [...] 1:00 PM EDT Office Visit Family Practice [place] [address] [place] [address] [place] [address] Lolis Tam DO [address] [place] [address] Scheduled Procedures Name Priority Associated Diagnoses Date/Ti [...] Advance Directives occurred with: Patient Care Teams Insurance Specialist Relationship Specialty Start Date End Date Lolis Tam DO [address] [facility] [place] [address] PCP - General Family Medicine 08/13/21 documented as of this encounter
[2024-06-16 07:28] LABS: Albumin Globulin Ratio 1.3 (0.9-2); Albumin Level 3.5 gm/dl (3.4-5.0); Bilirubin,Total 0.3 mg/dl (0.2-1.0); Calcium 9.1 mg/dl (8.6-10.3); Creatinine Clr Calc Pharmacy 92.8 ml/min; Globulin 2.7 gm/dl (2.5-4.0); Potassium 3.6 mmol/L (3.5-5.1); Total Protein 6.2 gm/dl (6.0-8.3)
[2024-06-16 07:34] LABS: Basophils # (auto) 0.05 K/uL (0.00-0.20); Basophils % (auto) 0.7 %; Eosinophils # (auto) 0.09 K/uL (0.00-0.50); Eosinophils % (auto) 1.3 %; Hemoglobin 10.5 g/dl (12.0-16.0); Immature Granulocytes # (auto) 0.03 K/uL (0.01-0.20); Immature Granulocytes % (auto) 0.4 %; Lymphocytes # (auto) 2.53 K/uL (1.20-3.40); Lymphocytes % (auto) 36.6 %; Mean Corpuscular Hemoglobin 26.4 pg (25.0-34.0); Mean Corpuscular Hgb Conc 30.9 g/dL (32.0-36.0); Mean Corpuscular Volume 85.6 fL (80.0-100.0); Mean Platelet Volume 10.4 fL (9.4-12.4); Monocytes # (auto) 0.51 K/uL (0.11-0.59); Monocytes % (auto) 7.4 %; Neutrophils # (auto) 3.71 K/uL (1.40-6.50); Neutrophils % (auto) 53.6 %; Platelet Count 198 K/uL (130-400); RDW Coefficient of Variation 16.3 % (11.5-14.5); RDW Standard Deviation 51.7 fL (36.4-46.3); Red Blood Count 3.97 M/uL (4.20-5.40); White Blood Count 6.92 K/ul (4.8-10.8)
[2024-06-16] MEDS: CITALOPRAM 20 MG TAB PO SCH (08:06)
[2024-06-16] MEDS: ADVANCED PROBIOTIC 625 MG CAPSULE PO SCH (08:06)
[2024-06-16] MEDS: ATORVASTATIN 10 MG TAB PO SCH (08:06)
[2024-06-16] MEDS: CYANOCOBALAMIN (B-12) 500 MCG TABLET PO SCH (08:07)
[2024-06-16] MEDS: DULoxetine HCL 60 MG CAP PO SCH (08:07)
[2024-06-16] MEDS: amLODIPine BESYLATE 5 MG TAB PO SCH (08:09)
[2024-06-16] MEDS: UMECLIDINIUM BROMIDE 62.5MCG/BLISTER 7 PUFFS/INHALER INH SCH (08:09)
[2024-06-16] MEDS: PANTOprazole 40 MG TAB PO SCH (08:09)
[2024-06-16] MEDS: FLUTICASONE/VILANTEROL 100/25MCG 14 PUFFS/INHALER INH SCH (08:09)
[2024-06-16] MEDS: VANCOMYCIN HCL 1,000 MG/270 ML BAG IV SCH (11:04)
--- NOTE | 2024-06-16 13:02 | Hospitalist Progress Note ---
Date of Service June 16, 2024 Assessment & Plan (1) Metabolic encephalopathy: (2) Complicated UTI (urinary tract infection): (3) Chronic indwelling Ng catheter: Plan 83 yo female with a past medical history of Vascular Dementia, CLL, T2DM, HLD, COPD, Hx of CVA with RHP, peripheral polyneuropathy, bedridden, hx of DVT, chronic indwelling ng cath, Chronic R ureteral stent 2/2 hydronephrosis who presents to ED 2/2 confusion. She is currently involved w/ [facility] hospice. She was treated w/ IM meropenem through her hospice agency x 5 days [employer]ED[employer]SE[employer] for concern for UTI. Unsure if urine was sent for cx. At baseline she is bedridden or confined to a chair. She eats/drinks but has to be assisted with all meals due to choking with meals. She is being managed for the following: #Metabolic encephalopathy #Complicated UTI #UTI due to indwelling Ng catheter, a complication of care #Chronic Indwelling ng Pt with hx of recurrent UTI Her ng has not been exchanged in > 30 days, will have nursing exchange ng if not exchanged yesterday, await reply from RN. OP chart review w/ no recent urine cx, last one from 05/05/24. Admitting renal imaging reviewed. Admitting Urine Cx w/ E faecium, f/u sensitivities Pt started on ertapene and vanco 06/15 given previous cultures. --> DC both 06/16, start linezolid, f/u sensitivities. ID consult Plan for 7 d of appropriate treatment. c/w probiotic. #T2DM: last a1c 6.7 in April, monitor accuchecks but will not provide sliding scale coverage for now given advanced age #Vascular dementia: pt more confused than baseline per daughter, follow w/ UTI Rx. #HTN: chronic, stable - continue amlodipine #Hx of DVT: continue eliquis Hx of CVA with LHP/contractures: bed bound at baseline DVT ppx: Eliquis DNR/DNI PCP: Lolis Huerta Dispo: admit to medical, tx with IV antibiotics and await urine culture, pt is currently under [facility] hospice, daughter reports pt is scheduled for respite stay at [facility] starting Wednesday, Goal would be to discharge to she is able to go there, plan to return to with hospice Admission and Anticipated Discharge Date Admission Date: June 15, 2024 Subjective Patient was seen and examined at bedside. Patient was lying in bed, on room air, NAD, resting comfortably. Patient reports her chronic left foot pain and wants it to be covered with blankets all the time. Patient denies chest pain or shortness of breath. Per RN, patient ate all her breakfast with assistance, no bowel movements, no medical issues overnight. Physical Exam Physical Exam: Constitutional: Elderly, chronically ill appearing, alert and oriented x 1 only Head: Normocephalic, Atraumatic Eyes: PERRL, conjunctivae normal, anicteric sclerae ENMT: external ear and nose normal, oropharynx normal Neck: trachea midline, no thyromegaly normal visual inspection Respiratory: normal respiratory effort, lungs clear to auscultation, no wheeze, rales, rhonchi. Normal insp/exp effort, no accessory muscle use Cardiovascular: RRR, no murmur, no edema Vessels: no JVD or carotid bruit Chest: normal inspection of chest Abdomen: normal bowel sounds, soft, nontender, no hepatosplenomegaly Musculoskeletal: no cyanosis or clubbing, LHP, RUE contracture Skin: no rashes, warm and dry normal turgor Neurologic:no face palsy, no dysarthria CN's II-XI intact bilaterally and moves all extremities Psychiatric: A+Ox1, euthymic affect Lymphatic: no cervical or axillary lymphadenopathy : +ng jesus urine collection noted in bag Results & Data Results & Data Vital Signs (Past 12 Hours) Vital Signs Temp Pulse Resp BP Pulse Ox O2 Del Method 06/16/24 07:29 36.6 C 74 20 165/73 H 94 Room Air 06/16/24 03:00 Room Air 06/16/24 03:00 36.5 C 86 18 163/83 H 91 Room Air 06/16/24 02:00 73 18 172/92 H 96 Room Air 06/16/24 01:00 78 18 164/88 H 92 Room Air
[2024-06-16] MEDS ORDERED: LINEZOLID 600 MG/300 ML BAG IV SCH (13:30)
[2024-06-16] MEDS: DAPTOmycin 600 MG in SYRINGE 0 ML IV SCH (14:56)
[2024-06-16] MEDS: LINEZOLID 600 MG/300 ML BAG IV SCH (16:26)
[2024-06-16] MEDS: MELATONIN 3 MG TAB PO PRN (21:57)
[2024-06-16] MEDS: ACETAMINOPHEN 325 MG TAB PO PRN (21:57)
[2024-06-17 07:58] LABS: Creatinine Clr Calc Pharmacy 104.4 ml/min
--- NOTE | 2024-06-17 16:02 | Hospitalist Progress Note ---
Date of Service June 17, 2024 Assessment & Plan (1) Metabolic encephalopathy: (2) Complicated UTI (urinary tract infection): (3) Chronic indwelling Ng catheter: Plan 83 yo female with a past medical history of Vascular Dementia, CLL, T2DM, HLD, COPD, Hx of CVA with RHP, peripheral polyneuropathy, bedridden, hx of DVT, chronic indwelling ng cath, Chronic R ureteral stent 2/2 hydronephrosis who presents to ED 2/2 confusion. She is currently involved w/ [facility] hospice. She was treated w/ IM meropenem through her hospice agency x 5 days [employer] for concern for UTI. Unsure if urine was sent for cx. At baseline she is bedridden or confined to a chair. She eats/drinks but has to be assisted with all meals due to choking with meals. She is being managed for the following: #Metabolic encephalopathy #Complicated UTI #UTI due to indwelling Ng catheter, a complication of care #Chronic Indwelling ng Pt with hx of recurrent UTI Her ng has not been exchanged in > 30 days, will have nursing exchange ng if not exchanged yesterday, await reply from RN. OP chart review w/ no recent urine cx, last one from 05/05/24. Admitting renal imaging reviewed. Admitting Urine Cx w/ E faecium, f/u sensitivities Pt started on ertapene and vanco 06/15 given previous cultures. --> DC both 06/16, c/w dapto 06/16, f/u sensitivities. ID consult Plan for 7 d of appropriate treatment. c/w probiotic. c/w home low dose statin while on dapto with close monitoring of CPK level. #T2DM: last a1c 6.7 in April, monitor accuchecks but will not provide sliding scale coverage for now given advanced age #Vascular dementia: pt more confused than baseline per daughter, follow w/ UTI Rx. #HTN: chronic, stable - continue amlodipine #Hx of DVT: continue eliquis Hx of CVA with LHP/contractures: bed bound at baseline DVT ppx: Eliquis DNR/DNI PCP: Lolis Huerta Dispo: admit to medical, tx with IV antibiotics and await urine culture, pt is currently under [facility] hospice, daughter reports pt is scheduled for respite stay at [facility] starting Wednesday, Goal would be to discharge to she is able to go there, plan to return to with hospice Admission and Anticipated Discharge Date Admission Date: June 15, 2024 Subjective Patient was seen and examined at bedside. Patient was lying in bed, on room air, NAD, resting comfortably. Patient reports her chronic foot pain and wants it to be covered with blankets all the time. Patient denies chest pain or shortness of breath. Physical Exam Physical Exam: Constitutional: Elderly, chronically ill appearing, alert and oriented x 1 only Head: Normocephalic, Atraumatic Eyes: PERRL, conjunctivae normal, anicteric sclerae ENMT: external ear and nose normal, oropharynx normal Neck: trachea midline, no thyromegaly normal visual inspection Respiratory: normal respiratory effort, lungs clear to auscultation, no wheeze, rales, rhonchi. Normal insp/exp effort, no accessory muscle use Cardiovascular: RRR, no murmur, no edema Vessels: no JVD or carotid bruit Chest: normal inspection of chest Abdomen: normal bowel sounds, soft, nontender, no hepatosplenomegaly Musculoskeletal: no cyanosis or clubbing, LHP, RUE contracture Skin: no rashes, warm and dry normal turgor Neurologic:no face palsy, no dysarthria CN's II-XI intact bilaterally and moves all extremities Psychiatric: A+Ox1, euthymic affect Lymphatic: no cervical or axillary lymphadenopathy : +ng jesus urine collection noted in bag Results & Data Results & Data Vital Signs (Past 12 Hours) Vital Signs Temp Pulse Resp BP Pulse Ox O2 Del Method 06/17/24 11:45 78 16 136/81 92 Room Air 06/17/24 09:00 Room Air 06/17/24 08:54 78 12 148/84 H 95 Room Air 06/17/24 07:36 36.8 C 78 18 164/83 H 96 Room Air
[2024-06-18 06:24] LABS: Hematocrit (blood only) 32.9 % (37.0-47.0); Hemoglobin 10.5 g/dl (12.0-16.0); Mean Corpuscular Hemoglobin 26.7 pg (25.0-34.0); Mean Corpuscular Hgb Conc 31.9 g/dL (32.0-36.0); Mean Corpuscular Volume 83.7 fL (80.0-100.0); Platelet Count 208 K/uL (130-400); RDW Coefficient of Variation 15.8 % (11.5-14.5); RDW Standard Deviation 48.5 fL (36.4-46.3); Red Blood Count 3.93 M/uL (4.20-5.40); White Blood Count 7.38 K/ul (4.8-10.8)
[2024-06-18 06:38] LABS: BUN Creatinine Ratio 19.5 (10-20); Calcium 9.2 mg/dl (8.6-10.3); Creatinine Clr Calc Pharmacy 101.9 ml/min; Potassium 3.3 mmol/L (3.5-5.1)
[2024-06-18] MEDS: ONDANSETRON INJ 2 MG/ML 2 ML VIAL IV PRN (07:44)
--- NOTE | 2024-06-18 13:11 | Hospitalist Progress Note ---
Date of Service June 18, 2024 Assessment & Plan (1) Metabolic encephalopathy: (2) Complicated UTI (urinary tract infection): (3) Chronic indwelling Ng catheter: Plan 83 yo female with a past medical history of Vascular Dementia, CLL, T2DM, HLD, COPD, Hx of CVA with RHP, peripheral polyneuropathy, bedridden, hx of DVT, chronic indwelling ng cath, Chronic R ureteral stent 2/2 hydronephrosis who presents to ED 2/2 confusion. She is currently involved w/ [facility] hospice. She was treated w/ IM meropenem through her hospice agency x 5 days [employer] for concern for UTI. Unsure if urine was sent for cx. At baseline she is bedridden or confined to a chair. She eats/drinks but has to be assisted with all meals due to choking with meals. She is being managed for the following: #Metabolic encephalopathy #Complicated UTI #UTI due to indwelling Ng catheter, a complication of care #Chronic Indwelling ng Pt with hx of recurrent UTI Her ng has not been exchanged in > 30 days, OP chart review w/ no recent urine cx, last one from 05/05/24. Admitting renal imaging reviewed. Admitting Urine Cx w/ E faecium, f/u sensitivities Pt started on ertapene and vanco 06/15 given previous cultures. --> DC both 06/16, c/w dapto 06/16, f/u sensitivities. Plan for 7 d of appropriate treatment. c/w probiotic. c/w home low dose statin while on dapto with close monitoring of CPK level. #T2DM: last a1c 6.7 in April, monitor accuchecks but will not provide sliding scale coverage for now given advanced age #Vascular dementia: pt more confused than baseline per daughter, follow w/ UTI Rx. #HTN: chronic, stable - continue amlodipine #Hx of DVT: continue eliquis Hx of CVA with LHP/contractures: bed bound at baseline DVT ppx: Eliquis DNR/DNI PCP: Lolis Huerta Dispo: admit to medical, tx with IV antibiotics and await urine culture, pt is currently under [facility] hospice, daughter reports pt is scheduled for respite stay at [facility] starting Wednesday, Goal would be to discharge to she is able to go there, plan to return to with hospice Please note the above document was generated using voice recognition software. It may contain grammatical, syntax or spelling errors. Any formal questions or concerns about the content, text or information contained within the body of this dictation should be directly addressed to the provider for clarification Admission and Anticipated Discharge Date Admission Date: June 15, 2024 Subjective Patient seen and examined at bedside. Comfortable; not in distress. Denies fever, chills, chest pain, shortness of breath, abdominal pain or urinary symptoms. No significant overnight events Review of Systems Review of Systems: All systems reviewed & are unremarkable except as noted in Subjective Physical Exam Physical Exam: Constitutional: Elderly, chronically ill appearing, alert and oriented x 1 only Head: Normocephalic, Atraumatic Eyes: PERRL, conjunctivae normal, anicteric sclerae ENMT: external ear and nose normal, oropharynx normal Neck: trachea midline, no thyromegaly normal visual inspection Respiratory: normal respiratory effort, lungs clear to auscultation, no wheeze, rales, rhonchi. Normal insp/exp effort, no accessory muscle use Cardiovascular: RRR, no murmur, no edema Vessels: no JVD or carotid bruit Chest: normal inspection of chest Abdomen: normal bowel sounds, soft, nontender, no hepatosplenomegaly Musculoskeletal: no cyanosis or clubbing, LHP, RUE contracture Skin: no rashes, warm and dry normal turgor Neurologic:no face palsy, no dysarthria CN's II-XI intact bilaterally and moves all extremities Psychiatric: A+Ox1, euthymic affect Lymphatic: no cervical or axillary lymphadenopathy : +ng jesus urine collection noted in bag Results & Data Results & Data Vital Signs (Past 12 Hours) Vital Signs Temp Pulse Resp BP Pulse Ox O2 Del Method 06/18/24 12:29 36.4 C L 82 16 109/69 95 Room Air 06/18/24 07:54 36.4 C L 80 14 157/76 H 94 Room Air 06/18/24 07:45 Room Air
[2024-06-19 06:05] LABS: Basophils # (auto) 0.04 K/uL (0.00-0.20); Basophils % (auto) 0.5 %; Eosinophils # (auto) 0.15 K/uL (0.00-0.50); Eosinophils % (auto) 1.9 %; Hematocrit (blood only) 32.7 % (37.0-47.0); Hemoglobin 10.7 g/dl (12.0-16.0); Immature Granulocytes # (auto) 0.01 K/uL (0.01-0.20); Immature Granulocytes % (auto) 0.1 %; Lymphocytes # (auto) 3.05 K/uL (1.20-3.40); Lymphocytes % (auto) 38.7 %; Mean Corpuscular Hemoglobin 27.4 pg (25.0-34.0); Mean Corpuscular Hgb Conc 32.7 g/dL (32.0-36.0); Mean Corpuscular Volume 83.6 fL (80.0-100.0); Mean Platelet Volume 9.5 fL (9.4-12.4); Monocytes # (auto) 0.58 K/uL (0.11-0.59); Monocytes % (auto) 7.4 %; Neutrophils # (auto) 4.05 K/uL (1.40-6.50); Neutrophils % (auto) 51.4 %; Platelet Count 209 K/uL (130-400); RDW Coefficient of Variation 15.8 % (11.5-14.5); RDW Standard Deviation 48.1 fL (36.4-46.3); Red Blood Count 3.91 M/uL (4.20-5.40); White Blood Count 7.88 K/ul (4.8-10.8)
[2024-06-19 06:30] LABS: BUN Creatinine Ratio 25.6 (10-20); Calcium 9.2 mg/dl (8.6-10.3); Creatinine Clr Calc Pharmacy 97.2 ml/min; Potassium 3.6 mmol/L (3.5-5.1)
[2024-06-19 07:10] VITALS: BP 138/79; PULSE 84; RESP 16; TEMP 97.3; O2SAT 93
--- NOTE | 2024-06-19 09:29 | Hospitalist Progress Note ---
Date of Service June 19, 2024 Assessment & Plan (1) Metabolic encephalopathy: (2) Complicated UTI (urinary tract infection): (3) Chronic indwelling Ng catheter: Plan 83 yo female with a past medical history of Vascular Dementia, CLL, T2DM, HLD, COPD, Hx of CVA with RHP, peripheral polyneuropathy, bedridden, hx of DVT, chronic indwelling ng cath, Chronic R ureteral stent 2/2 hydronephrosis who presents to ED 2/2 confusion. She is currently involved w/ [facility] hospice. She was treated w/ IM meropenem through her hospice agency x 5 days [employer] for concern for UTI. Unsure if urine was sent for cx. At baseline she is bedridden or confined to a chair. She eats/drinks but has to be assisted with all meals due to choking with meals. She is being managed for the following: #Metabolic encephalopathy #Complicated UTI vs possible colonization #UTI due to indwelling Ng catheter, a complication of care #Chronic Indwelling ng Pt with hx of recurrent UTI Her ng has not been exchanged in > 30 days, OP chart review w/ no recent urine cx, last one from 05/05/24. Admitting renal imaging reviewed. Admitting Urine Cx w/ E faecium, Patient has history of chronic indwelling Ng which was not changed for more than 4 weeks on her presentation. Ng catheter was exchanged once she was hospitalized. Suspect that her culture is likely secondary to colonization as she is afebrile, asymptomatic. Will hold off antibiotic. Infectious disease was already consulted; will follow up reccs #T2DM: last a1c 6.7 in April, monitor accuchecks but will not provide sliding scale coverage for now given advanced age #Vascular dementia: pt more confused than baseline per daughter, follow w/ UTI Rx. #HTN: chronic, stable - continue amlodipine #Hx of DVT: continue eliquis Hx of CVA with LHP/contractures: bed bound at baseline DVT ppx: Eliquis DNR/DNI PCP: Lolis Huerta Please note the above document was generated using voice recognition software. It may contain grammatical, syntax or spelling errors. Any formal questions or c oncerns about the content, text or information contained within the body of this dictation should be directly addressed to the provider for clarification Admission and Anticipated Discharge Date Admission Date: June 15, 2024 Subjective Patient seen and examined at bedside. Comfortable; not in distress. Denies fever, chills, chest pain, shortness of breath, abdominal pain or urinary symptoms. No significant overnight events Review of Systems Review of Systems: All systems reviewed & are unremarkable except as noted in Subjective Physical Exam Physical Exam: Constitutional: Elderly, chronically ill appearing, alert and oriented x 1 only Respiratory: normal respiratory effort, lungs clear to auscultation, no wheeze, rales, rhonchi. Normal insp/exp effort, no accessory muscle use Cardiovascular: RRR, no murmur, no edema Vessels: no JVD or carotid bruit Chest: normal inspection of chest Abdomen: normal bowel sounds, soft, nontender, no hepatosplenomegaly Musculoskeletal: no cyanosis or clubbing, LHP, RUE contracture Skin: no rashes, warm and dry normal turgor Neurologic:no face palsy, no dysarthria CN's II-XI intact bilaterally and moves all extremities Psychiatric: A+Ox1, euthymic affect Lymphatic: no cervical or axillary lymphadenopathy Results & Data Results & Data Vital Signs (Past 12 Hours) Vital Signs Temp Pulse Resp BP Pulse Ox O2 Del Method 06/19/24 07:09 36.3 C L 84 16 138/79 93 Room Air
--- NOTE | 2024-06-19 15:09 | Discharge Summary ---
Date of Service June 19, 2024 Admission HPI Per Admitting Provider Ms. Oro is an 83 yo female with a past medical history of Vascular Dementia, CLL, T2DM, HLD, COPD, Hx of CVA with RHP, peripheral polyneuropathy, bedridden, hx of DVT, chronic indwelling ng cath, Chronic R ureteral stent 2/2 hydronephrosis who presents to ED 2/2 confusion. Hx obtained from outpt chart review, ED provider and speaking with daughter over the phone. Pt lives with her daughter. She is currently involved with [facility]. She has dementia at baseline, but daughter feels mother is becoming more confused. She is currently being treated with IM Meropenem through her hospice agency for the last 5 days. She is unsure where her urine culture was sent to. She has a ng cath in place. She knows its been well over 30 days since last exchange. Daughter states at baseline she is bedridden or confined to a chair. She eats/drinks but has to be assisted with all meals due to choking with meals. In ED pt was hemodynamically stable. UA looked dirty; however was from a ng bag. ROS unobtainable from pt. Admission Exam Per Admitting Provider Constitutional: Elderly, chronically ill appearing, alert and oriented x 1 only Head: Normocephalic, Atraumatic Eyes: PERRL, conjunctivae normal, anicteric sclerae ENMT: external ear and nose normal, oropharynx normal dry membranes Neck: trachea midline, no thyromegaly normal visual inspection Respiratory: normal respiratory effort, lungs clear to auscultation, no wheeze, rales, rhonchi. Normal insp/exp effort, no accessory muscle use Cardiovascular: RRR, no murmur, no edema Vessels: no JVD or carotid bruit Chest: normal inspection of chest Abdomen: normal bowel sounds, soft, nontender, no hepatosplenomegaly Musculoskeletal: no cyanosis or clubbing, LHP, RUE contracture Skin: no rashes, warm and dry normal turgor Neurologic:no face palsy, no dysarthria CN's II-XI intact bilaterally and moves all extremities Psychiatric: A+Ox1, euthymic affect Lymphatic: no cervical or axillary lymphadenopathy : +ng Principal Diagnosis Encephalopathy, likely due to medication CAUTI, POA Discharge Exam Constitutional: Elderly, chronically ill appearing, alert and oriented x 1 only Respiratory: normal respiratory effort, lungs clear to auscultation, no wheeze, rales, rhonchi. Normal insp/exp effort, no accessory muscle use Cardiovascular: RRR, no murmur, no edema Vessels: no JVD or carotid bruit Chest: normal inspection of chest Abdomen: normal bowel sounds, soft, nontender, no hepatosplenomegaly Musculoskeletal: no cyanosis or clubbing, LHP, RUE contracture Skin: no rashes, warm and dry normal turgor Neurologic:no face palsy, no dysarthria CN's II-XI intact bilaterally and moves all extremities Psychiatric: A+Ox1, euthymic affect Lymphatic: no cervical or axillary lymphadenopathy Discharge Data Allergies Allergy/AdvReac Type Severity Reaction Status Date / Time ibuprofen Allergy Unknown Unknown Unverified 09/04/23 17:30 Iodinated Contrast Media Allergy Unknown Unknown Unverified 09/04/23 17:30 iodine Allergy Unknown Unknown Unverified 09/04/23 17:30 metformin Allergy Unknown Unknown Unverified 09/04/23 17:30 naproxen Allergy Unknown Unknown Unverified 09/04/23 17:30 Penicillins Allergy Unknown Unknown Unverified 04/24/24 15:54 pregabalin Allergy Unknown Unknown Unverified 09/04/23 17:30 Consultations 06/15/24 17:50 ED Decision to Admit Stat 06/16/24 13:17 Consult Infectious Diseases Routine Ordered Studies 06/15/24 16:25 CT head/brain wo con Stat 06/15/24 18:46 US Renal Bladder [US renal/blad retro comp] Stat Hospital Course (1) Metabolic encephalopathy: (2) Complicated UTI (urinary tract infection): (3) Chronic indwelling Ng catheter: Plan 83 yo female with a past medical history of Vascular Dementia, CLL, T2DM, HLD, COPD, Hx of CVA with RHP, peripheral polyneuropathy, bedridden, hx of DVT, chronic indwelling ng cath, Chronic R ureteral stent 2/2 hydronephrosis who presents to ED 2/2 confusion. #Metabolic encephalopathy #Chronic Indwelling ng Patient has history of chronic indwelling Ng which was not changed for more than 4 weeks on her presentation. Ng catheter was exchanged once she was hospitalized. Suspect that her culture is likely secondary to colonization as she is afebrile, asymptomatic. Suspect her metabolic encephalopathy likely secondary to use of baclofen. She was afebrile throughout the hospitalization, no leukocytosis. Patient received antibiotic during the hospitalization; patient was discharged on respite care on hospice. Patient was at baseline mentation at the time of the discharge.. Please note the above document was generated using voice recognition software. It may contain grammatical, syntax or spelling errors. Any formal questions or concerns about the content, text or information contained within the body of this dictation should be directly addressed to the provider for clarification Total Time Total Time Spent Total Time Spent (In Minutes): 45 Total Time Includes: Examination of the Patient, Discharge Planning, Medication Reconciliation, Communication With Other Providers and Other Discharge Plan Discharge Items Patient Disposition: Transfer [facility] Reason For Visit: COMPLICATED UTI Discharge Diagnosis: Metabolic encephalopathy Activity: Resume your previous activity Non-emergency contact: Primary Care Provider Call non-emergency contact if: you have any medication questions and your symptoms worsen Follow-up/Referrals: Lolis Tam DO [Primary Care Provider] - Diet: Regular Addtl Attending Provider Instructions: You were admitted to the hospital with confusion. The likely cause for it is his medication. Baclofen has been stopped. Please avoid opiates as possible. Ng catheter needs to be changed every 4 weeks. Last time Ng catheter was changed he is on June 15, 2024 Pending Studies at Discharge: No Stand-Alone Forms: [facility] Skilled Items Patient informed of condition?: No DNR: Yes Discharge Level of Care: Other Communicable Disease: No Discharge Prognosis: Stable Lines: None Urinary Catheter: Yes Medications and DC Order Prescriptions: Continued albuterol sulfate 2.5 mg /3 mL (0.083 %) solution for nebulization 2.5 mg continuous nebulization Q4H PRN (Reason: Shortness Of Breath Or Wheezing) polyethylene glycol 3350 17 gram powder in packet 17 g PO UD Rx Instructions: 17 g po daily. filled 05/02 7 day supply atorvastatin 10 mg tablet 10 mg PO UD Rx Instructions: 10 mg po daily. last filled 05/02/24 30 day supply amlodipine 5 mg tablet 10 mg PO UD Rx Instructions: 10 mg po daily. last filled 04/2024 30 day supply citalopram 20 mg tablet 20 mg PO DAILY pantoprazole 40 mg tablet,delayed release (DR/EC) 40 mg PO DAILY Rx Instructions: filled 05/02 30 day supply docusate sodium 100 mg capsule 100 mg PO BID Rx Instructions: OTC albuterol sulfate 90 mcg/actuation HFA aerosol inhaler 2 puff INHALATION Q4H PRN (Reason: Shortness Of Breath Or Wheezing) duloxetine 30 mg capsule,delayed release(DR/EC) 60 mg PO DAILY Eliquis 2.5 mg tablet 2.5 mg PO BID Incruse Ellipta 62.5 mcg/actuation blister with device 1 inh INHALATION DAILY fluticasone propion-salmeterol [AirDuo RespiClick] 113-14 mcg/actuation aerosol powdr breath activated 1 inh INHALATION BID ferrous sulfate 324 mg (65 mg iron) tablet,delayed release (DR/EC) 324 mg PO UD Rx Instructions: 324 mg po daily. last filled 05/02/24 30 day supply cyanocobalamin (vitamin B-12) 1,000 mcg Tablet 1,000 mcg PO DAILY Rx Instructions: otc melatonin 5 mg Tablet 5 mg PO HS PRN (Reason: Insomnia) Rx Instructions: OTC diclofenac sodium [Voltaren Arthritis Pain] 1 % Gel 2 g EXT BID Qty: 100 0RF Rx Instructions: OTC Discontinued baclofen 10 mg tablet 10 mg PO TID Discharge Orders: Discharge Order (Routine); Ordered 06/19/24 Ordered By: Jeffrey Mendez Admission Data Admit Date/Time: 06/15/24 18:45 Attending Provider: Jeffrey Mendez Admit Provider: Jeffrey Mendez Primary Care Provider: Lolis Tam Other Providers: Jeffrey Mendez; David Bertrand; Bang Church; Nikhil Matthew I.; Jason Laws II; Teressa Robb; Chandra Frank; Onur Brumfield; Fanny Faria; Gallito Shultz; Wilver Rubio Other Interventions: Discharge Summary Assessment (RN) Last Done: 06/19/24 14:18
[2024-06-20 13:26] LABS: Estimated Average Glucose 134 mg/dl; Hemoglobin A1C 6.3 % (4.5-5.6)
== END 2024-06-19 14:35 | DRG 71 ==
LOC: ED 14:37 → EDINP 18:45 → SUATTDRO 18:45 → 3E 21:46 → UNDODISIN 06-16 13:22